=== PATIENT | female | born 1980 | race Caucasian/White ===

== ENCOUNTER → 2022-05-19 | Outpatient (CLI) | payer BC, MEDICAID, SELFPAY ==
[2022-05-19 10:18] LABS: Absolute Lymphocyte Count 3.05 X10^3/uL (0.83-4.51); Absolute Neutrophil Count 6.1 X10^3/uL (2.0-7.7); Basophil# 0.05 X10^3/uL; Basophil% 0.5 % (0-1); Eosinophil# 0.06 X10^3/uL; Eosinophils% 0.6 % (0-5); Hemoglobin 13.2 g/dL (12.0-15.0); Lymphocyte # 3.05 X10^3/ul (0.83-4.51); Lymphocyte % 30.7 % (19-41); Mean Corpuscular Hgb 32.8 pg (27.0-32.0); Mean Corpuscular Volume 99.3 fL (81-99); Mean Platelet Vol. 9.7 fl (6.2-12.0); Monocyte# 0.71 X10^3/uL; Monocyte% 7.1 % (0-10); NRBC Flagged by Analyzer 0 % (0-5); Neutrophil # 6.06 X10^3/uL (2.7-7.7); Neutrophil % 60.9 % (47-70); Platelet Count 271 K/mm3 (150-450); RBC Distribution Width CV 13.2 % (11.6-14.6); RBC Distribution Width SD 47.7 fl (35.1-43.9); Red Blood Count 4.03 M/mm3 (4.2-5.4)
[2022-05-19 13:16] LABS: ALB/GLOB Ratio 1.2 RATIO (0.9-2.4); AST(SGOT) 18 U/L (15-37); Alanine Aminotransfer ALT/SGPT 33 U/L (13-56); Alkaline Phosphatase 63 U/L (45-117); Anion Gap 9 (5-15); BUN 16 mg/dL (7-18); BUN/Creat Ratio 17.3 RATIO (10-20); Calcium,Total 8.9 mg/dL (8.5-10.1); Chloride 102 mmol/L (98-107); Creatinine, Serum 0.92 mg/dL (0.55-1.02); EST Glomerular Filtration Rate 71 mL/min (>60); Est Glom Filt Rate - Afr Amer 86 mL/min (>60); Globulin 3.4 g/dL (2.2-4.2); Glucose 100 mg/dL (74-106); Potassium 3.9 mmol/L (3.5-5.1); Protein, Total 7.4 g/dL (6.4-8.2); Sodium Level 138 mmol/L (136-145)
== END | disposition home or self-care (01) ==
PROVIDERS: PCP Nurse Practitioner Family; Referring Provider Internal Medicine Rheumatology; Visit Provider Internal Medicine Rheumatology
DX: M06.4 Inflammatory polyarthropathy (principal); M79.7 Fibromyalgia; E78.5 Hyperlipidemia, unspecified; Z79.899 Other long term (current) drug therapy
CPT/HCPCS: 36415; 80053; 85025

== ENCOUNTER 2022-05-25 05:55 | Day surgery (SDC) | payer BC, MEDICAID, SELFPAY ==
[2022-05-25] VITALS (7 sets, daily range): BP systolic 96–124; BP diastolic 53–86; PULSE 74–84; RESP 16; TEMP 36.2–36.9; O2SAT 94–99; BMI 44.1
[2022-05-25 06:37] LABS: Internal QC Validated? YES +Cl - CLEAR BKGD; Pregnancy, Urine Negative Negative
--- NOTE | 2022-05-25 06:46 | PCM.HP.BLA ---
History and Physical Date of Admission: 05/25/22 Chief complaint: Desires permanent sterilization History present illness: 41-year-old arrives for laparoscopic bilateral tubal ligation for permanent sterilization. No medical changes since last seen. All questions answered and consent signed. Obstetric history: G2, P2 history of 2 vaginal deliveries Past medical history: Asthma, arthritis, hyperlipidemia Allergies: Amoxicillin Medications: Breo, Cymbalta, prednisone, albuterol, methotrexate, Plaquenil, Protonix, atorvastatin Past surgical history: Tonsillectomy Family history: Denies history DVT or PE Social history: Vapes, denies alcohol or drug use Review of systems: Besides above pertinent positives a full review of systems was performed and found to be negative Physical exam: Vitals: Blood pressure 124/76 pulse 80 respiratory rate 16 temperature 97.1 ?F SPO2 90% on room air General: Normal-appearing no acute distress HEENT: Normocephalic/atraumatic no cervical lymphadenopathy Cardiac/respiratory: No use accessory muscles, nonlabored breathing Abdomen: Soft, nontender, obese Extremities: No peripheral edema normal peripheral pulses Psych: Normal affect normal demeanor nonpressured speech Labs: Urine test negative Assessment plan: 41-year-old desires laparoscopic bilateral tubal ligation for permanent sterilization. Patient understands risk of the procedure include but are not limited to visceral or vascular injury, prolonged hospitalization, blood loss and need for transfusion, reoperation. Patient state understanding and wished to proceed. All questions were answered and consent was signed.
[2022-05-25] MEDS: Lactated Ringers 1,000 ML 120 ML IV (06:47)
--- NOTE | 2022-05-25 07:30 | FALS_PTH ---
PATIENT: MCKAYLA KAUFFMAN [place] [facility] [place][id number] AGE/SX: 41/F ROOM: RE05/25/[address]: Dr. Chemo Rodriguez MD : 1980 BED: DIS: 05/25/2022 SPEC #: [id number] RECD: 05/25/22 12:01 STATUS: SELAM ELIDA #: [id number] PAULA: 05/25/22 07:[address]: Chemo Rodriguez DEPT: SURGICAL PATHOLOGY RECD BY: Florence Russo ENTERED: 05/25/22 13:25 SP TYPE: FALL TUBES OTHR DR: Nakia Moran, RAILROAD MECHANIC-C Tissues: Fallopian tube Procedures: Surgery Specimen Level II HEADER OPERATION: Laparoscopic salpingectomy PRE-OP DIAGNOSIS: Sterilization TISSUE SUBMITTED: Bilateral fallopian tubes MICROSCOPIC DIAGNOSIS Right and left fallopian tubes, salpingectomies: Complete cross-sections of fallopian tubes with no pathologic change. AM:neisha 05/26/2022 MICROSCOPIC DESCRIPTION Slides are reviewed. GROSS DESCRIPTION Received in fixative is one container labeled with the patient's name and designated bilateral fallopian tubes. The specimen consists of bilateral fallopian tubes including fimbrial ends each measuring 4 cm in length and 0.7 cm in diameter. The fallopian tubes are not identified as right or left. Sections reveal unremarkable cut surfaces. Senior Data Modeler sections are submitted in two cassettes with each cassette containing one fallopian tube. / SJ:rg 05/25/2022 TC:4 [facility]: [id number] x2
--- NOTE | 2022-05-25 08:10 | DCINST_ITS ---
Discharge Instructions Diet Discharge Diet: No restrictions Activity Discharge Activity: Return to Normal Activity, May Drive, May Shower and - (No tub baths for 2) May resume sexual activity in: 4-6 weeks Lifting Restrictions: No lifting over 25 pounds for 2 to 3 weeks Dressing / Incision Call your doctor if your incision/area has: Continuous Slow Oozing and Foul Smelling Discharge Call your doctor if you observe: Fever of 101 or Higher, Shortness of breath and Chest pain Follow Up Care Please Follow Up With: Chemo Rodriguez MD When: 2 weeks postoperatively Test Results: Test results from this visit will be discussed in further detail at your follow- up appointment, if applicable. Discharge Plan Admission Attending Provider: Chemo Rodriguez Primary Care Provider: Nakia Moran NP Discharge Orders/Prescriptions Prescriptions: No Action multivitamin Tablet 1 tab PO DAILY prednisone 10 mg tablet 10 mg PO PRN PRN (Reason: RHEUMATOID ARTHRITIS) Label Comments: TAKE 1 TABLET BY MOUTH DAILY NEEDED TAKE FOR 3 TO 5 DAYS WITH A FLARE atorvastatin 10 mg tablet 10 mg PO QHS Label Comments: TAKE 1 TABLET BY MOUTH EVERYDAY AT BEDTIME leucovorin calcium 15 mg tablet 15 mg PO FR Label Comments: TAKE 1 TABLET BY MOUTH ONCE A WEEK methotrexate sodium 2.5 mg tablet 20 mg PO TH Label Comments: TAKE 8 TABLETS BY MOUTH ONE TIME PER WEEK pantoprazole 40 mg tablet,delayed release (DR/EC) 40 mg PO DAILY Label Comments: 1 (ONE) TABLET BY MOUTH 30 MINUTES PRIOR TO BREAKFAST OR BEFORE FIRST MEAL OF THE DAY folic acid 1 mg tablet 2 mg PO BID Label Comments: TAKE 2 TABLETS BY MOUTH EVERY DAY hydroxychloroquine 200 mg tablet 200 mg PO BID Label Comments: TAKE 1 TABLET BY MOUTH TWICE A DAY albuterol sulfate 90 mcg/actuation HFA aerosol inhaler 2 inh INHALATION PRN PRN (Reason: COPD) Label Comments: 2 PUFFS EVERY 4 HOURS NEEDED duloxetine [Cymbalta] 60 mg capsule,delayed release(DR/EC) 60 mg PO DAILY Label Comments: TAKE 1 CAPSULE BY MOUTH EVERYDAY AT BEDTIME ferrous sulfate 28 mg iron Tablet 28 mg PO DAILY fluticasone furoate-vilanterol 200-25 mcg/dose blister with device 1 inh INHALATION DAILY Label Comments: TAKE 1 PUFF BY MOUTH EVERY DAY Referrals / Follow Up: Nakia Moran NP, MEDICAL CLAIMS ANALYST-C [Primary Care Provider] - Disposition Disposition (needs filled in before D/C Order can be placed): Home, Self Care
--- NOTE | 2022-05-25 08:11 | OP.PCM_ITS ---
Report of Operation Date of Procedure: 05/25/22 Pre-Operative Diagnosis: Desires permanent sterilization Post-Operative Diagnosis: Desires permanent sterilization Surgery/Procedure Performed:: Laparoscopic bilateral salpingectomy Description of Surgical Findings:: Surgeon: Chemo Rodriguez MD Anesthesia: General EBL: Minimal Urine output: 100 cc none IV fluids: 700 cc Complications: None Specimen: Bilateral fallopian tubes Findings: Normal uterus, tubes, and ovaries Consent: Patient desires permanent sterilization elects for laparoscopic bilateral salpingectomy. Patient understands risk of the procedure include but are not limited to visceral or vascular injury, prolonged hospitalization, blood loss and need for transfusion, reoperation. Patient states understanding and wished to proceed. All questions were answered and consent was signed Procedure: Patient was brought back to the OR where general anesthesia was found to be adequate. Patient was prepared and draped in a dorsolithotomy position with yellowfin stirrups. A weighted speculum was placed in the posterior aspect of the vagina and cervical dilators were used to dilate the cervix. Uterine manipulator was placed. Varies needle was inserted at the umbilicus water safety test was passed, failure to insufflate abdomen. Repeated varies needle attempt at the umbilicus, again failed insufflation. 5 mm supraumbilical midline incision made. Laparoscope was inserted via OptiNutricate. Abdomen was insufflated and above findings were noted. Left lower quadrant 5 mm trocar was inserted under direct visualization. Right lower quadrant 8 mm trocar was inserted under direct visualization. Using atraumatic grasper and a LigaSure device the left fallopian tube was identified to the fimbria and the mesosalpinx was cut and cauterized, fallopian tube was transected and sent to pathology. Good hemostasis was noted. In a similar fashion the left fallopian tube was identified out to the fimbria and the mesosalpinx was cut and cauterized with LigaSure device, fallopian tube was transected and sent to pathology. Good hemostasis was noted bilaterally. Abdomen was desufflated and trochars were removed under direct visualization. Good hemostasis was noted. Trocar sites were closed in a subcutaneous fashion. Good hemostasis was noted. Uterine manipulator was removed and cervix was inspected, good hemostasis was noted. All counts were correct x2. Patient tolerated procedure well and was brought to recovery in stable condition.
[2022-05-25] MEDS: Acetaminophen 500 MG Tablet 1000 MG PO (09:27)
== END 2022-05-25 10:25 | disposition home or self-care (01) ==
LOC: SDC 05:55 → AC 05:56
PROVIDERS: Anesthesiology; PCP Nurse Practitioner Family; Referring Provider Obstetrics & Gynecology; Visit Provider Obstetrics & Gynecology
PROC: (CPT 58661; principal; 2022-05-25 07:15)
DX: Z30.2 Encounter for sterilization (principal); E78.5 Hyperlipidemia, unspecified; J45.909 Unspecified asthma, uncomplicated; M19.90 Unspecified osteoarthritis, unspecified site; Z79.899 Other long term (current) drug therapy
CPT/HCPCS: 58661; 00840; 81025; 88302; J7120; J2405

== ENCOUNTER → 2022-11-24 | Outpatient (CLI) | payer BC, MEDICAID, SELFPAY ==
[2022-11-27 15:08] LABS: HPV APTIMA, High Risk Negative (Negative)
== END | disposition home or self-care (01) ==
LOC: LABSPEC 09:45
PROVIDERS: PCP Nurse Practitioner Family; Visit Provider Obstetrics & Gynecology
DX: Z12.4 Encounter for screening for malignant neoplasm of cervix (principal)
CPT/HCPCS: 87624; 88175; G0145

== ENCOUNTER → 2023-10-12 | Outpatient (CLI) | payer BC, SELFPAY ==
[2023-10-12 09:51] LABS: Absolute Lymphocyte Count 2.34 X10^3/uL (0.83-4.51); Absolute Neutrophil Count 3.5 X10^3/uL (2.0-7.7); Basophil# 0.04 X10^3/uL; Basophil% 0.6 % (0-1); Eosinophil# 0.08 X10^3/uL; Eosinophils% 1.2 % (0-5); Hematocrit 39.6 % (37-47); Hemoglobin 12.8 g/dL (12.0-15.0); Lymphocyte # 2.34 X10^3/ul (0.83-4.51); Lymphocyte % 35.8 % (19-41); Mean Corp Hgb Conc 32.3 g/dL (32-36); Mean Corpuscular Hgb 30.9 pg (27.0-32.0); Mean Corpuscular Volume 95.7 fL (81-99); Mean Platelet Vol. 10.2 fl (6.2-12.0); Monocyte# 0.57 X10^3/uL; Monocyte% 8.7 % (0-10); NRBC Flagged by Analyzer 0 % (0-5); Neutrophil % 53.5 % (47-70); Platelet Count 269 K/mm3 (150-450); RBC Distribution Width CV 13.2 % (11.6-14.6); RBC Distribution Width SD 46.5 fl (35.1-43.9); Red Blood Count 4.14 M/mm3 (4.2-5.4); White Blood Count 6.5 K/mm3 (4.4-11.0)
[2023-10-12 10:28] LABS: AST(SGOT) 23 U/L (15-37); Alanine Aminotransfer ALT/SGPT 38 U/L (13-56); Albumin, Serum 3.7 g/dL (3.2-5.0); Alkaline Phosphatase 86 U/L (45-117); Anion Gap 7 (5-15); BUN 11 mg/dL (7-18); BUN/Creat Ratio 12.3 RATIO (10-20); Calcium,Total 8.9 mg/dL (8.5-10.1); Chloride 108 mmol/L (98-107); EST Glomerular Filtration Rate 73 mL/min (>60); Est Glom Filt Rate - Afr Amer 88 mL/min (>60); Globulin 3.8 g/dL (2.2-4.2); Glucose 100 mg/dL (74-106); Protein, Total 7.5 g/dL (6.4-8.2); Sodium Level 138 mmol/L (136-145)
== END | disposition home or self-care (01) ==
LOC: MTLAB 07:21
PROVIDERS: PCP Nurse Practitioner Family; Referring Provider Internal Medicine Rheumatology; Visit Provider Internal Medicine Rheumatology
DX: M06.4 Inflammatory polyarthropathy (principal); M79.7 Fibromyalgia; Z79.899 Other long term (current) drug therapy
CPT/HCPCS: 36415; 80053; 85025

== ENCOUNTER → 2024-03-21 | Outpatient (CLI) | payer BC, SELFPAY ==
[2024-03-21 12:27] LABS: Absolute Lymphocyte Count 2.23 X10^3/uL (0.83-4.51); Absolute Neutrophil Count 5.2 X10^3/uL (2.0-7.7); Basophil# 0.06 X10^3/uL; Basophil% 0.7 % (0-1); Eosinophil# 0.14 X10^3/uL; Eosinophils% 1.7 % (0-5); Hematocrit 41.7 % (37-47); Hemoglobin 13.5 g/dL (12.0-15.0); Lymphocyte # 2.23 X10^3/ul (0.83-4.51); Lymphocyte % 27.1 % (19-41); Mean Corp Hgb Conc 32.4 g/dL (32-36); Mean Corpuscular Hgb 31.9 pg (27.0-32.0); Mean Corpuscular Volume 98.6 fL (81-99); Mean Platelet Vol. 10.2 fl (6.2-12.0); Monocyte# 0.61 X10^3/uL; Monocyte% 7.4 % (0-10); NRBC Flagged by Analyzer 0 % (0-5); Neutrophil # 5.17 X10^3/uL (2.7-7.7); Neutrophil % 62.9 % (47-70); Platelet Count 248 K/mm3 (150-450); RBC Distribution Width CV 12.7 % (11.6-14.6); RBC Distribution Width SD 45.6 fl (35.1-43.9); Red Blood Count 4.23 M/mm3 (4.2-5.4); White Blood Count 8.2 K/mm3 (4.4-11.0)
[2024-03-21 13:13] LABS: ALB/GLOB Ratio 1.1 RATIO (0.9-2.4); AST(SGOT) 19 U/L (15-37); Alanine Aminotransfer ALT/SGPT 38 U/L (13-56); Alkaline Phosphatase 78 U/L (45-117); Anion Gap 6 (5-15); BUN 13 mg/dL (7-18); BUN/Creat Ratio 14.4 RATIO (10-20); Calcium,Total 9.1 mg/dL (8.5-10.1); Chloride 104 mmol/L (98-107); EST Glomerular Filtration Rate 72 mL/min (>60); Est Glom Filt Rate - Afr Amer 87 mL/min (>60); Globulin 3.7 g/dL (2.2-4.2); Glucose 93 mg/dL (74-106); Potassium 4.1 mmol/L (3.5-5.1); Protein, Total 7.7 g/dL (6.4-8.2); Sodium Level 136 mmol/L (136-145)
== END | disposition home or self-care (01) ==
LOC: MTLAB 09:02
PROVIDERS: PCP Nurse Practitioner Family; Referring Provider Internal Medicine Rheumatology; Visit Provider Internal Medicine Rheumatology
DX: M06.4 Inflammatory polyarthropathy (principal); M79.7 Fibromyalgia; Z79.899 Other long term (current) drug therapy
CPT/HCPCS: 36415; 80053; 85025

== ENCOUNTER → 2024-06-21 | Outpatient (CLI) | payer BC, SELFPAY ==
[2024-06-21 10:23] LABS: Absolute Lymphocyte Count 2.27 X10^3/uL (0.83-4.51); Absolute Neutrophil Count 3.8 X10^3/uL (2.0-7.7); Basophil# 0.04 X10^3/uL; Basophil% 0.6 % (0-1); Eosinophil# 0.11 X10^3/uL; Eosinophils% 1.6 % (0-5); Hematocrit 38.6 % (37-47); Hemoglobin 12.7 g/dL (12.0-15.0); Lymphocyte # 2.27 X10^3/ul (0.83-4.51); Mean Corp Hgb Conc 32.9 g/dL (32-36); Mean Corpuscular Hgb 32.2 pg (27.0-32.0); Mean Corpuscular Volume 97.7 fL (81-99); Mean Platelet Vol. 10.4 fl (6.2-12.0); Monocyte# 0.67 X10^3/uL; Monocyte% 9.8 % (0-10); NRBC Flagged by Analyzer 0 % (0-5); Neutrophil # 3.77 X10^3/uL (2.7-7.7); Neutrophil % 54.9 % (47-70); Platelet Count 248 K/mm3 (150-450); RBC Distribution Width CV 13.6 % (11.6-14.6); RBC Distribution Width SD 48.3 fl (35.1-43.9); Red Blood Count 3.95 M/mm3 (4.2-5.4); White Blood Count 6.9 K/mm3 (4.4-11.0)
[2024-06-21 10:48] LABS: ALB/GLOB Ratio 0.9 RATIO (0.9-2.4); AST(SGOT) 18 U/L (15-37); Alanine Aminotransfer ALT/SGPT 34 U/L (13-56); Albumin, Serum 3.6 g/dL (3.2-5.0); Alkaline Phosphatase 83 U/L (45-117); Anion Gap 8 (5-15); BUN 10 mg/dL (7-18); BUN/Creat Ratio 11.6 RATIO (10-20); Calcium,Total 8.7 mg/dL (8.5-10.1); Chloride 104 mmol/L (98-107); Creatinine, Serum 0.86 mg/dL (0.55-1.02); EST Glomerular Filtration Rate 76 mL/min (>60); Est Glom Filt Rate - Afr Amer 92 mL/min (>60); Globulin 3.9 g/dL (2.2-4.2); Glucose 98 mg/dL (74-106); Potassium 4.1 mmol/L (3.5-5.1); Protein, Total 7.5 g/dL (6.4-8.2); Sodium Level 138 mmol/L (136-145)
== END | disposition home or self-care (01) ==
LOC: MTLAB 07:41
PROVIDERS: PCP Nurse Practitioner Family; Referring Provider Internal Medicine Rheumatology; Visit Provider Internal Medicine Rheumatology
DX: M06.4 Inflammatory polyarthropathy (principal); M79.7 Fibromyalgia; Z79.899 Other long term (current) drug therapy
CPT/HCPCS: 36415; 80053; 85025

== ENCOUNTER → 2024-07-22 | Outpatient (CLI) | payer BC, SELFPAY ==
[2024-07-22 08:27] LABS: Absolute Neutrophil Count 3.8 X10^3/uL (2.0-7.7); Basophil# 0.06 X10^3/uL; Basophil% 0.9 % (0-1); Eosinophil# 0.11 X10^3/uL; Eosinophils% 1.7 % (0-5); Hematocrit 38.7 % (37-47); Hemoglobin 12.7 g/dL (12.0-15.0); Lymphocyte % 28.3 % (19-41); Mean Corp Hgb Conc 32.8 g/dL (32-36); Mean Corpuscular Hgb 32.2 pg (27.0-32.0); Mean Corpuscular Volume 98.2 fL (81-99); Mean Platelet Vol. 9.6 fl (6.2-12.0); Monocyte# 0.58 X10^3/uL; Monocyte% 9.1 % (0-10); NRBC Flagged by Analyzer 0 % (0-5); Neutrophil # 3.79 X10^3/uL (2.7-7.7); Neutrophil % 59.7 % (47-70); Platelet Count 240 K/mm3 (150-450); RBC Distribution Width CV 13.7 % (11.6-14.6); RBC Distribution Width SD 49.8 fl (35.1-43.9); Red Blood Count 3.94 M/mm3 (4.2-5.4); White Blood Count 6.4 K/mm3 (4.4-11.0)
[2024-07-22 09:15] LABS: ALB/GLOB Ratio 1.4 RATIO (0.9-2.4); AST(SGOT) 32 U/L (<=31); Alanine Aminotransfer ALT/SGPT 35 U/L (<=34); Albumin, Serum 4.1 g/dL (3.5-5.0); Alkaline Phosphatase 70 U/L (35-104); Anion Gap 10 (5-15); BUN 9 mg/dL (4-19); BUN/Creat Ratio 10.6 RATIO (10-20); Calcium,Total 8.7 mg/dL (7.6-11.0); Chloride 103 mmol/L (98-108); Cholesterol 163 mg/dL (<=200); Creatinine, Serum 0.83 mg/dL (0.70-1.20); EST Glomerular Filtration Rate 89 (>60); Globulin 2.9 g/dL (2.2-4.2); Glucose 98 mg/dL (70-99); High Density Lipoprotein 71 mg/dL; Low Density Lipoprotein Calc. 76 mg/dL; Potassium 4.3 mmol/L (3.3-5.1); Protein, Total 6.9 g/dL (5.9-8.4); Sodium Level 137 mmol/L (133-145); Thyroid Stim Hormone (TSH) 0.289 uIU/mL (0.300-4.200); Total Bilirubin 0.21 mg/dL (0.00-1.30); Triglycerides 84 mg/dL; Very Low Density Lipoprotein 17 mg/dL (5-40); cholesterol:hdl ratio screen 2.31
== END | disposition home or self-care (01) ==
LOC: LAB 08:08
PROVIDERS: PCP Family Medicine; Referring Provider Family Medicine; Visit Provider Family Medicine
DX: I10 Essential (primary) hypertension (principal); E78.5 Hyperlipidemia, unspecified
CPT/HCPCS: 36415; 80053; 80061; 82306; 84443; 85025

== ENCOUNTER → 2024-09-13 | Outpatient (CLI) | payer BC, SELFPAY ==
[2024-09-13 10:25] LABS: Absolute Neutrophil Count 3.9 X10^3/uL (2.0-7.7); Basophil# 0.04 X10^3/uL; Basophil% 0.6 % (0-1); Eosinophil# 0.08 X10^3/uL; Eosinophils% 1.2 % (0-5); Hematocrit 41.5 % (37-47); Hemoglobin 13.8 g/dL (12.0-15.0); Lymphocyte % 31.9 % (19-41); Mean Corp Hgb Conc 33.3 g/dL (32-36); Mean Corpuscular Hgb 31.4 pg (27.0-32.0); Mean Corpuscular Volume 94.5 fL (81-99); Mean Platelet Vol. 10.6 fl (6.2-12.0); Monocyte# 0.69 X10^3/uL; NRBC Flagged by Analyzer 0 % (0-5); Neutrophil # 3.88 X10^3/uL (2.7-7.7); Neutrophil % 56.2 % (47-70); Platelet Count 243 K/mm3 (150-450); RBC Distribution Width CV 13.1 % (11.6-14.6); RBC Distribution Width SD 45.3 fl (35.1-43.9); Red Blood Count 4.39 M/mm3 (4.2-5.4); White Blood Count 6.9 K/mm3 (4.4-11.0)
[2024-09-13 11:02] LABS: ALB/GLOB Ratio 1.4 RATIO (0.9-2.4); AST(SGOT) 23 U/L (<=31); Alanine Aminotransfer ALT/SGPT 38 U/L (<=34); Albumin, Serum 4.3 g/dL (3.5-5.0); Alkaline Phosphatase 58 U/L (35-104); Anion Gap 12 (5-15); BUN 6 mg/dL (4-19); BUN/Creat Ratio 7.7 RATIO (10-20); Calcium,Total 9.6 mg/dL (7.6-11.0); Chloride 102 mmol/L (98-108); Creatinine, Serum 0.82 mg/dL (0.70-1.20); EST Glomerular Filtration Rate 90 (>60); Glucose 103 mg/dL (70-99); Protein, Total 7.3 g/dL (5.9-8.4); Sodium Level 136 mmol/L (133-145); Total Bilirubin 0.31 mg/dL (0.00-1.30)
== END | disposition home or self-care (01) ==
LOC: MTLAB 07:06
PROVIDERS: PCP Family Medicine; Referring Provider Internal Medicine Rheumatology; Visit Provider Internal Medicine Rheumatology
DX: M06.4 Inflammatory polyarthropathy (principal); M25.562 Pain in left knee; M79.7 Fibromyalgia; K58.2 Mixed irritable bowel syndrome
CPT/HCPCS: 36415; 80053; 85025

== ENCOUNTER → 2024-09-26 | Outpatient (CLI) | payer BC, SELFPAY ==
--- NOTE | 2024-09-26 07:22 | US_ITS ---
PROCEDURE: ABDOMEN LIMITED 09/26/2024 REASON FOR EXAM: INFLAMMATORY POLYARTHROPATHY COMPARISON: None FINDINGS: Liver: Diffusely echogenic suggesting fatty infiltration. Liver measures 16.1 cm. There is 1.9 cm 3.2 cm x 1.3 cm echogenic focus in the right lobe of the liver suggestive of a hemangioma. Gallbladder: No stones, sludge, wall thickening or tenderness. Common bile duct: Normal measuring 3.2 mm . Pancreas: Obscured by bowel gas. Other: Right kidney is unremarkable. US/Abdomen Limited IMPRESSION: Fatty infiltration of the liver. Findings suggestive of a 1.9 cm 3.2 cm 1.3 cm hemangioma in the right lobe of t he liver. Reading Location: [place] [id number]
== END | disposition home or self-care (01) ==
PROVIDERS: PCP Family Medicine; Referring Provider Internal Medicine Rheumatology; Visit Provider Internal Medicine Rheumatology
DX: M06.4 Inflammatory polyarthropathy (principal); Z79.899 Other long term (current) drug therapy
CPT/HCPCS: 76705

== ENCOUNTER 2024-10-14 17:42 | Emergency (ER) | payer BC, SELFPAY ==
[2024-10-14 17:43] VITALS: BP 130/59; PULSE 115; RESP 18; TEMP 36.6; O2SAT 99; BMI 40.7
--- NOTE | 2024-10-14 18:03 | EDS_ITS ---
HPI History of Present Illness Chief Complaint: [facility] Medical History Wears contact lenses Wears glasses History of steroid therapy Rheumatoid arthritis Arthritis Anemia High cholesterol Migraine headache History of diverticulitis History of hiatal hernia Gastric reflux Former smoker Asthma COPD (chronic obstructive pulmonary disease) Hoarseness Chronic cough Fibromyalgia Leg cramps History of pain when walking History of edema Home Medications ?Medication ?Instructions ?Recorded ?Last Taken ?Type albuterol sulfate 90 mcg/actuation 2 inh inhalation DC N PRN COPD 05/19/22 05/25/22 History aerosol inhaler atorvastatin 10 mg tablet 10 mg PO QHS 05/19/22 Unknow n History duloxetine 60 mg capsule,delayed 60 mg PO DAILY Unknown History release (Cymbalta) ferrous sulfate 28 mg iron tablet 28 mg PO DAILY 05/19 Unknown History fluticasone furoate 200 1 inh inhalation DAILY 05/1905/25/22 History mcg-vilanterol 25 mcg/dose inhalation powder folic acid 1 mg tablet 2 mg PO BID 05/19/22 Unknown History hydroxychloroquine 200 mg tablet 200 mg PO BID 3 Unknown History leucovorin calcium 15 mg tablet 15 mg PO FR 05/19/22 U nknown History methotrexate sodium 2.5 mg tablet 20 mg PO TH 05/19/22 Unknown History multivitamin 1 tab PO DAILY 05/19/22 Unkn own History pantoprazole 40 mg tablet,delayed 40 mg PO DAILY 05/1905/25/22 History release prednisone 10 mg tablet 10 mg PO PRN PRN RHEUMATOID 05/19/22 Unknown History ARTHRITIS Allergy/AdvReac Type Severity Reaction Status Date / Time amoxicillin AdvReac Other Verified 10/14/24 17:42 Surgical History Hx of lymph node biopsy Hx of tonsillectomy Social History (Updated 10/14/24 @ 17:51 by Ani Terry) household members: spouse housing: house Smoking Status: Former smoker EXAM Physical Exam Const Vital Signs: 10/14/24 17:43 10/14/24 19:42 10/14/24 21:00 Temperature 97.9 F Temperature Source Temporal Pulse Rate 115 H 77 81 Respiratory Rate 18 16 16 Blood Pressure 130/59 H 135/68 H 107/77 Blood Pressure Mean 82 90 87 Pulse Ox 99 99 100 Oxygen Delivery Method Room Air Room Air Room Air [facility] Narrative Medical decision making narrative: HISTORY OF PRESENT ILLNESS: Chief complaint: Diarrhea, hematochezia 44-year-old female history of rheumatoid arthritis, COPD, fibromyalgia presents with abdominal pain, bloody diarrhea. The patient denies being on blood thinners. No significant approximately 4 mm. No history of diverticulitis. No she took Bentyl that relief. She further states she had left lower quadrant pain. Does not quite feel like a prior diverticulitis. She notes she did take 1 dose of ciprofloxacin and Flagyl this morning. Denies vomiting but notes nausea but denies fever. Denies sick contacts, travel, recent surgery or or other antibiotics besides the ones of interest endorsed. Denies chest pain or shortness of breath. Denies urinary complaints. Denies history of kidney stones. Denies falls or trauma. REVIEW OF SYSTEMS: Pertinent positives: Diarrhea, abdominal pain, hematochezia Pertinent negatives: Vomiting, fever, chest pain PHYSICAL EXAM: Nursing triage notes reviewed, Vital signs reviewed Constitutional: please see [facility] HENT: MMM Eyes: Pupils equal round and reactive to light, Extraocular muscles intact Neck: No stridor, no JVD, full neck ROM Lungs: Clear to auscultation, No wheezing or rales. No increased work of breathing, no conversational dyspnea, no accessory muscle use, no nasal flaring. No respiratory distress noted Heart: Regular rate and rhythm, No murmurs, No rubs and No gallops, 2+ distal pulses (radial, femoral, posterior tibial) in all extremities Abdomen: Soft, there is no tenderness, rigidity, rebound or guarding, no obvious peritoneal signs, no palpable pulsatile abdominal masses, no auscultated abdominal bruit : No CVAT Extremities: No edema Neuro: No new focal neurological deficits, cranial nerves II through XII intact, 5/5 strength in all present extremities. Intact sensation to light touch in all present extremities, 2+ reflexes bilateral patella tendons. Skin: No rash or lesions noted MEDICAL DECISION MAKING: Chief Complaint: please see [facility] External records reviewed: Reviewed prior imaging studies: Reviewed abdominal ultrasound from September 2024 which showed fat infiltration of liver, hemangioma Factors affecting care: As per HPI Social determinants of health: Denies drugs or alcohol History obtained from others: none Consults: none [facility] Narrative: The patient was initially tachycardic otherwise hemodynamically stable, afebrile and nontoxic-appearing. Exam with no obvious peritoneal signs. I considered the following differential diagnosis: AAA, small bowel obstruction, abdominal perforation, perforated diverticula, diverticular abscess, appendicitis, pancreatitis, hepatobiliary pathology (acute cholecystitis), mesenteric ischemia, pathology (ie nephrolithiasis, pyelonephritis), invasive diarrheal species (including E. coli and Shigella). I obtained a broad lab and imaging workup to further elucidate etiology the patient complaints. Initially treated patient with 1 L normal saline, 4 mg IV morphine, 4 mg IV Zofran, 15 mg IV Toradol ALL IMAGES (IF OBTAINED) HAVE BEEN PERSONALLY REVIEWED AND INTERPRETED BY MYSELF. CBC leukocytosis suggestive of systemic inflammation. She is on steroids so this may be result of demarginalization rather than acute inflammation CMP without evidence of acute kidney injury, significant electrolyte abnormality, anion gap to suggest end organ hypo-perfusion, no evidence of metabolic acidosis with a normal bicarbonate, no evidence of hepatobiliary obstructive pathology. Lipase is wnl indicating no pancreatic inflammation. Urinalysis shows no evidence of urinary inflammation suggestive of UTI Urine test is negative CT scan of the abdomen/pelvis shows possible enteritis but no obvious surgical emergencies. No diverticulitis or diverticular abscess. Upon reassessment patient heart improved to 81, she remained afebrile. The synthesis of the patient's history, physical exam, labs images suggest likely enteritis. Will await stool cultures before prescribing additional medications including antibiotics. Encourage patient to follow stool cultures on her electron medical record and to refer to her primary care physician during follow-up for results. She was prescribed Zofran for symptomatic relief of nausea at home. The patient and/or family, caregivers express understanding. The patient and/or family, caregivers agrees with the plan. Shared decision making: I will have a discussion with the patient and or visitors regarding risk/benefits of further testing or admission. They will be made aware of of the risk/benefits inherent in this decision they will be given the opportunity to voice understanding. Total critical care time today provided was at least 0 [] minutes. This excludes separately billable procedures. Critical care time (if documented) is secondary to the patient having high probability of clinically significant/life threatening deterioration in the patient's condition which required my urgent intervention. Impression: 1. Abdominal pain 2. Diarrhea 3. Hematochezia Dispo: Discharge home This note was generated with [employer] dictation software. It may contain incorrect words, spelling, and punctuation that were not noted in review of the chart prior to signing. Lab Data Labs: Laboratory Results - last 24 hr 10/14/24 10/14/24 18:11 18:18 WBC 12.8 H RBC 4.51 Hgb 14.2 Hct 42.6 MCV 94.5 MCH 31.5 MCHC 33.3 RDW Std Deviation 45.7 H RDW Coeff of [place] 13.2 Plt Count 246 MPV 10.1 Immature Gran % (Auto) 0.500 Neut % (Auto) 84.9 H Lymph % (Auto) 7.8 L [place] % (Auto) 6.3 Eos % (Auto) 0.2 Baso % (Auto) 0.3 Absolute Neuts (auto) 10.9 H Absolute Lymphs (auto) 0.99 Nucleated RBC % 0 Sodium 139 Potassium 3.6 Chloride 104 Carbon Dioxide 24.5 Anion Gap 11 BUN 5 Creatinine 0.82 Estim Creat Clear Calc 93.68 Est GFR (MDRD) Non-Af 91 BUN/Creatinine Ratio 5.5 L Glucose 97 Calcium 9.6 Total Bilirubin 0.47 AST 24 ALT 30 Alkaline Phosphatase 64 Total Protein 7.5 Albumin 4.6 Globulin 3.0 Albumin/Globulin Ratio 1.5 Lipase 27 Urine Color [place]enny Urine Clarity Cloudy Urine pH 5.0 Ur Specific [place] 1.030 Urine Protein 30 H Urine Glucose (UA) Normal Urine Ketones 5 H Urine Occult Blood Negative Urine Nitrite Negative Urine Bilirubin 1 H Urine Urobilinogen Normal Ur Leukocyte Esterase 25 H Urine RBC 0 SEEN Urine WBC 0-5 SEEN Ur Squamous Epith Cells 0-5 SEEN Ur Transition Epith Cell 0-5 SEEN Urine Bacteria 4+ Fine Granular Casts 0-5 SEEN Urine Mucus 0 SEEN Urine Test Negative Radiography Diagnostic Testing: Clinical Impression(s) from Imaging Studies Abdomen/Pelvis CT 10/14/24 18:15 IMPRESSION: 1. Long segment wall thickening, hyperenhancement and fat stranding of the proximal descending colon, which is indeterminate in etiology, and may represent enteritis or inflammatory bowel disease. Colonoscopy is recommended for further evaluation. 2. Minimal colonic diverticulosis. No intra-abdominal abscess, ascites or free air. Reading Location: [facility] Discharge Plan Triage Chief Complaint: GI Bleed ED Provider: Sam Combs Dx/Rx/DC Orders Prescriptions: No Action multivitamin Tablet 1 tab PO DAILY prednisone 10 mg tablet 10 mg PO PRN PRN (Reason: RHEUMATOID ARTHRITIS) Patient Comments: TAKE 1 TABLET BY MOUTH DAILY NEEDED TAKE FOR 3 TO 5 DAYS WITH A FLARE atorvastatin 10 mg tablet 10 mg PO QHS Patient Comments: TAKE 1 TABLET BY MOUTH EVERYDAY AT BEDTIME leucovorin calcium 15 mg tablet 15 mg PO FR Patient Comments: TAKE 1 TABLET BY MOUTH ONCE A WEEK methotrexate sodium 2.5 mg tablet 20 mg PO TH Patient Comments: TAKE 8 TABLETS BY MOUTH ONE TIME PER WEEK pantoprazole 40 mg tablet,delayed release (DR/EC) 40 mg PO DAILY Patient Comments: 1 (ONE) TABLET BY MOUTH 30 MINUTES PRIOR TO BREAKFAST OR BEFORE FIRST MEAL OF THE DAY folic acid 1 mg tablet 2 mg PO BID Patient Comments: TAKE 2 TABLETS BY MOUTH EVERY DAY hydroxychloroquine 200 mg tablet 200 mg PO BID Patient Comments: TAKE 1 TABLET BY MOUTH TWICE A DAY albuterol sulfate 90 mcg/actuation HFA aerosol inhaler 2 inh INHALATION PRN PRN (Reason: COPD) Patient Comments: 2 PUFFS EVERY 4 HOURS NEEDED duloxetine [Cymbalta] 60 mg capsule,delayed release(DR/EC) 60 mg PO DAILY Patient Comments: TAKE 1 CAPSULE BY MOUTH EVERYDAY AT BEDTIME ferrous sulfate 28 mg iron Tablet 28 mg PO DAILY fluticasone furoate-vilanterol 200-25 mcg/dose blister with device 1 inh INHALATION DAILY Patient Comments: TAKE 1 PUFF BY MOUTH EVERY DAY Primary Care Provider: Coral Martinez Referrals: Coral Martinez MD [Primary Care Provider] - Print Language: Wolof
--- OUTSIDE RECORDS SUMMARY | 2024-10-14 18:09 | XMS RPT_ITS | CCD ---
Author Organization [facility] Team Providers Care Grounds/Maintenance Specialist Name Role Phone BRET LATIF DO, V Primary Care Physician DEANDRA VELASCO., DR. SIFUENTES Attending Unavaila ble BRET LATIF DO, V Primary Care Unavailable MARIA LIRIANO MD Primary Care Unavailable NAKIA ROLAND CNP Consulting Unavailable MARIA LIRIANO MD Admitting Unavailable MARIA LIRIANO MD Attending Unavailable PROVIDER, UNKNOWN Consulting Unavailable PROVIDER, UNKNOWN Consulting Unavailable MARIA LIRIANO MD Admitting Unavailable NAKIA ROLAND CNP Consulting Unavailable MARIA LIRIANO MD Attending Unavailable MARIA LIRIANO MD Primary Care Unavailable PROVIDER, UNKNOWN Consulting Unavailable PROVIDER, UNKNOWN Consulting Unavailable NAKIA ROLAND CNP Attending Unavailable NAKIA ROLAND CNP Admitting Unavailable NAKIA ROLAND CNP Consulting Unavailable NAKIA ROLAND CNP Primary Care Unavailable PROVIDER, UNKNOWN Consulting Unavailable PROVIDER, UNKNOWN Consulting Unavailable NAKIA ROLAND CNP Admitting Unavailable NAKIA ROLAND CNP Attending Unavailable NAKIA ROLAND CNP Consulting Unavailable NAKIA ROLAND CNP Primary Care Unavailable PROVIDER, UNKNOWN Consulting Unavailable PROVIDER, UNKNOWN Consulting Unavailable NAKIA ROLAND CNP Admitting Unavailable ASUNCIONNAKIA NUNN CNP Attending Unavailable ASUNCIONNAKIA NUNN CNP Consulting Unavailable NAKIA ROLAND CNP Primary Care Unavailable PROVIDER, UNKNOWN Consulting Unavailable PROVIDER, UNKNOWN Consulting Unavailable Asuncion [employer] CRIB ATTENDANT-CNakia Primary Care Provider [phone] Deandra VELASCO, Dr. Sifuentes Attending Provider Dr. Maria Liriano MD Referring Provider Coral Martinez MD Primary Care Provider Coral Martinez MD Attending Provider Coral Martinez MD Referring Provider Moe Martinezon Primary Care Unavailable JuanMoe wetzelon Attending Unavailable Juan, Chalon Referring Unavailable Vellanki, Maria Referring Unavailable Vellanki, Maria Attending Unavailable Juan, Chalon Primary Care Unavailable Vellanki, Maria Referring Unavailable Vellanki, Maria Attending Unavailable Juan, Chalon Primary Care Unavailable Vellanki, Maria Attending Unavailable Vellanki, Maria Referring Unavailable Nakia Roland Primary Care Unavailable Vellanki, Maria Referring Unavailable Nakia Roland Primary Care Unavailable Vellanki, Maria Attending Unavailable Vellanki, Maria Referring Unavailable Vellanki, Maria Attending Unavailable Nakia Roland Primary Care Unavailable Allergies Allergy Classification Reported Allergen(s) Allergy Type Date of Onset Reaction(s) Facility (5 sources) Amoxicillin; Translations: [amoxicillin] Drug Allergy 05-19-2022 [facility], [facility] Comment on above: YEAST INFECTIONS (1 source) Amoxicillin Drug Allergy [facility] Repository (1 source) Amoxicillin Drug Allergy 05-19-2022 [facility] Repository Medications Current Medications Medication Drug Class(es) Dates Sig (Normalized) Sig (Original) acetaminophen 325 mg oral tablet (2 sources) Start: 07-21-2011 Tylenol 325 mg oral tablet Dose : 650 mg = 2 tab(s), Oral, q4h, PRN for pain, # 120 tab(s), 0 Refill(s) Start Date: 07/21/11 Status: Ordered [id number] 200 actuat albuterol 0.09 mg/actuat metered dose inhaler (3 sources) beta2-Adrenergic Agonist Start: 05-19-2022 Albuterol Sulfate 90 mcg/actuation HFA aerosol inhaler Active 2 NMA INHALATION NEEDED as needed for COPD May 19, 2022 1:00am Start: 05-19-2022 Albuterol Sulf ate Active 2 INH INHALATION NEEDED May 19, 2022 12:00am atorvastatin 10 mg oral tablet (3 sources) HMG-CoA Reductase Inhibitor Start: 05-19-2022 take 1 tablet by mouth at bedtime Atorvastatin 10 mg tablet Active 10 mg PO AT BEDTIME May 19, 2022 1:00am citalopram 20 mg oral tablet (2 sources) Serotonin Reuptake Inhibitor Start: 07-17-2011 citalopram 20 mg oral tablet Dose : 20 mg = 1 tab(s), PO, Daily, # 30 tab(s), 0 Refill(s) Start Date: 07/17/11 Status: Ordered DULoxetine 60 mg delayed release oral capsule (3 sources) Serotonin and Norepinephrine Reuptake Inhibitor Start: 05-19-2022 take 1 capsule by mouth once daily Duloxetine (Cymbalta) 60 mg capsule,delayed release(DR/EC) Active 60 mg PO DAILY May 19, 2022 1:00am ferrous sulfate 28 mg oral tablet (1 source) Start: 05-19-2022 take 28 mg by mouth once daily Ferrous Sulfate Active 28 MG PO DAILY May 19, 2022 12:00am Ferrous Sulfate 28 mg iron Tablet (2 sources) Start: 05-19-2022 take 1 tablet by mouth once daily Ferrous Sulfate 28 mg iron Tablet Active 28 mg PO DAILY May 19, 2022 1:00am 30 actuat fluticasone furoate 0.2 mg/actuat / vilanterol 0.025 mg/actuat dry powder inhaler (3 sources) Corticosteroid, beta2-Adrenergic Agonist Start: 05-19-2022 Fluticasone Furoate-Vilanterol 200-25 mcg/dose blister with device Active 1 NMA INHALATION DAILY May 19, 2022 1:00am Start: 05-19-2022 Fluticasone Fu roate-Vilanterol Active 1 INH INHALATION DAILY May 19, 2022 12:00am folic acid 1 mg oral tablet (3 sources) Start: 05-19-2022 take 2 tablets by mouth twice daily Folic Acid 1 mg tablet Active 2 mg PO TWICE A DAY May 19, 2022 1:00am Start: 05-19-2022 take 2 mg by mouth twice daily Folic Acid Active 2 MG PO TWICE A DAY May 19, 2022 12:00am hydroxychloroquine sulfate 200 mg oral tablet (3 sources) Antimalarial, Antirheumatic Agent Start: 05-19-2022 take 1 tablet by mouth twice daily Hydroxychloroquine 200 mg tablet Active 200 mg PO TWICE A DAY May 19, 2022 1:00am leucovorin 15 mg oral tablet (3 sources) Folate Analog Start: 05-19-2022 Leucovorin Calcium 15 mg tablet Active 15 mg PO FR May 19, 2022 1:00am methotrexate 2.5 mg oral tablet (3 sources) Folate Analog Metabolic Inhibitor Start: 05-19-2022 Methotrexate Sodium 2.5 mg tablet Active 20 mg PO TH May 19, 2022 1:00am Start: 05-19-2022 Methotrexate S odium Active 20 MG PO May 19, 2022 12:00am Multivitamin preparation (1 source) Start: 05-19-2022 take 1 tablet by mouth once daily Multivitamin Active 1 TABLET PO DAILY May 19, 2022 12:00am Multivitamin Tablet (2 sources) Start: 05-19-2022 Multivitamin T ablet Active 1 {tbl} PO DAILY May 19, 2022 1:00am pantoprazole 40 mg delayed release oral tablet (3 sources) Proton Pump Inhibitor Start: 05-19-2022 take 1 tablet by mouth once daily Pantoprazole 40 mg tablet,delayed release (DR/EC) Active 40 mg PO DAILY May 19, 2022 1:00am predniSONE 10 mg oral tablet (3 sources) Start: 05-19-2022 Prednisone 10 mg tablet Active 10 mg PO NEEDED as needed for RHEUMATOID ARTHRITIS May 19, 2022 1:00am Completed/Discontinued Medications Medication Drug Class(es) Dates Sig (Normalized) Sig (Original) acetaminophen 300 mg / codeine phosphate 30 mg oral tablet (2 sources) Opioid Agonist Start: 07-21-2011 Tylenol with Codeine #3 oral tablet 1-2 tab, Oral, q4h, PRN as needed for pain, 0 Refill(s), q4-6h Start Date: 07/21/11 Status: Ordered Problems Active Problems Problem Classification Problem Date Documented Da te Episodic/Chronic Abdominal hernia (1 source) Diaphragmatic hernia; Translations: [Diaphragmatic hernia without obstruction or gangrene] Episodic Chronic obstructive pulmonary disease and bronchiectasis (1 source) Chronic obstructive lung disease; Translations: [Chronic obstructive pulmonary disease, unspecified] Chronic Disorders of lipid metabolism (1 source) Hyperlipidemia, unspecified; Translations: [Hyperlipidemia, unspecified] Onset: 4 Chronic Esophageal disorders (1 source) Gastroesophageal reflux disease without esophagitis; Translations: [Gastro-esophageal reflux disease without esophagitis] Chronic Essential hypertension (1 source) Essential (primary) hypertension; Translations: [Essential (primary) hypertension] Onset: 5 Chronic Other aftercare (1 source) Long-term current use of drug therapy; Translations: [Other intermediate (current) drug therapy] Episodic Other connective tissue disease (1 source) Fibromyalgia; Translations: [Fibromyalgia] Episodic Other gastrointestinal disorders (1 source) 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; 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] Chronic Rheumatoid arthritis and related disease (2 sources) Inflammatory polyarthropathy; Translations: [Inflammatory polyarthropathy] Onset: 5 Chronic Thyroid disorders (1 source) Hypothyroidism, unspecified; Translations: [Hypothyroidism, unspecified] Onset: 4 Chronic Past or Other Problems Problem Classification Problem Date Documented Da te Episodic/Chronic Malaise and fatigue (1 source) Other fatigue; Translations: [Other fatigue] Onset: 12-01-2023 Episodic Other screening for suspected conditions (not mental disorders or infectious disease) (1 source) Encounter for screening for diabetes mellitus; Translations: [Encounter for screening for diabetes mellitus] Onset: 12-01-2023 Episodic Results Test Name Value Interpretation Reference Range Facility Abdomen Limitedon 09-26-2024 Abdomen Limited [facility] Services [address] [place] [id number] Abdomen Limited MR#: [id number] Acct: [id number] Name: MCKAYLA KAUFFMAN Rep #: [id number] : 1980 F [id number] From: Skip branch MD PCP: Dr. Coral Martinez MD Status: [facility] Study: Abdomen Limited Date of Exam: 09/26/24 Exam# [id number] Ordering Dr: Maria Liriano MD PROCEDURE: ABDOMEN LIMITED 09/26/2024 REASON FOR EXAM: INFLAMMATORY POLYARTHROPATHY COMPARISON: None FINDINGS: Liver: Diffusely echogenic suggesting fatty infiltration. Liver measures 16.1 cm. There is 1.9 cm 3.2 cm x 1.3 cm echogenic focus in the right lobe of the liver suggestive of a hemangioma. Gallbladder: No stones, sludge, wall thickening or tenderness. Common bile duct: Normal measuring 3.2 mm . Pancreas: Obscured by bowel gas. Other: Right kidney is unremarkable. US/Abdomen Limited IMPRESSION: Fatty infiltration of the liver. Findings suggestive of a 1.9 cm 3.2 cm 1.3 cm hemangioma in the right lobe of the liver. Reading Location: [place] [address] CC: Dr. Coral Martinez MD; Dr. Maria Liriano MD Plating Technician: Signed Normal [facility] Absolute lymphocyte countOrd ered By: Maria Liriano on 09-13-2024 Lymphocytes Auto (Unsp spec) [#/Vol] 2.20 10*3/uL 0.83-4.51 [facility] Absolute neutrophil countOrd ered By: Maria Liriano on 09-13-2024 Neutrophils (Bld) [#/Vol] 3.9 10*3/uL 2.0-7.7 [facility] Anion gap in Serum or Plasma Ordered By: Maria Liriano on 09-13-2024 Anion gap [Moles/Vol] 12 mmol/L 5-15 [facility] Automated lymphocyte count a s percentage of total leukocytesOrdered By: Maria Liriano on 09-13-2024 Lymphocytes/100 WBC Auto (Unsp spec) 31.9 % 19-41 [facility] BUN/creatinine ratioOrdered By: Mariahanane Liriano on 09-13-2024 Urea nitrogen/Creatinine [Mass ratio] 7.7 mg/mg Low 10-20 [facility] Basophil percentageOrdered B y: Maria Liriano on 09-13-2024 Basophils/100 WBC (Bld) 0.6 % 0-1 [facility] Bilirubin, totalOrdered By: Maria Liriano on 09-13-2024 Bilirubin [Mass/Vol] 0.31 mg/dL 0.00-1.30 [facility] CBC W/Diff, Automatedon Absolute Lymph 2.20 X10 3/uL Normal 0.83-4.51 [facility] Comment on above: Performed By: #### L 500.4050, L100.0100 #### [facility] [address] [place], [place], [id number] Absolute Neut 3.9 X10 3/uL Normal 2.0-7.7 [facility] Comment on above: Performed By: #### L 500.4050, L100.0100 #### [facility] [address] [place], [address] Basophils/100 WBC (Bld) 0.6 % Normal 0-1 [facility] Comment on above: Performed By: #### L 500.4050, L100.0100 #### [facility] [address] [place], [address] Eosinophils/100 WBC (Bld) 1.2 % Normal 0-5 [facility] Comment on above: Performed By: #### L 500.4050, L100.0100 #### [facility] [address] [place], [address] Erythrocyte distribution width (RBC) [Ratio] 13.1 % Normal 11.6-14.6 [facility] Comment on above: Performed By: #### L 500.4050, L100.0100 #### [facility] [address] [place], [address] Hematocrit (Bld) [Volume fraction] 41.5 % Normal 37-47 [facility] Comment on above: Performed By: #### L 500.4050, L100.0100 #### [facility] [address] [place], [address] Hemoglobin (Bld) [Mass/Vol] 13.8 g/dL Normal 12.0-15.0 [facility] Comment on above: Performed By: #### L 500.4050, L100.0100 #### [facility] [address] [place], [address] IG% 0.100 Normal 0.0-0.9 [facility] Comment on above: Result Comment: IG% - Immature Granulocytes (promyelocytes, myelocytes and metamyelocytes) > 1% indicates that a LEFT SHIFT is Present. Performed By: #### L 500.4050, L100.0100 #### [facility] [address] [place], [address] Lymphocytes/100 WBC (Bld) 31.9 % Normal 19-41 [facility] Comment on above: Performed By: #### L 500.4050, L100.0100 #### [facility] [address] [place], [address] MCH (RBC) [Entitic mass] 31.4 pg Normal 27.0-32.0 [facility] Comment on above: Performed By: #### L 500.4050, L100.0100 #### [facility] [address] [place], [address] MCHC (RBC) [Mass/Vol] 33.3 g/dL Normal 32-36 [facility] Comment on above: Performed By: #### L 500.4050, L100.0100 #### [facility] [address] [place], [address] MCV (RBC) [Entitic vol] 94.5 fL Normal 81-99 [facility] Comment on above: Performed By: #### L 500.4050, L100.0100 #### [facility] [address] [place], [address] Monocytes/100 WBC (Bld) 10.0 % Normal 0-10 [facility] Comment on above: Performed By: #### L 500.4050, L100.0100 #### [facility] [address] [place], [address] Neutrophils/100 WBC (Bld) 56.2 % Normal 47-70 [facility] Comment on above: Performed By: #### L 500.4050, L100.0100 #### [facility] [address] [place], [address] Nucleated RBC (Bld) [#/Vol] 0 10*3/uL Normal 0-5 [facility] Comment on above: Performed By: #### L 500.4050, L100.0100 #### [facility] [address] [place], [address] Platelet mean volume (Bld) [Entitic vol] 10.6 fL Normal 6.2-12.0 [facility] Comment on above: Performed By: #### L 500.4050, L100.0100 #### [facility] [address] [place], [address] Platelets (Bld) [#/Vol] 243 10*3/uL Normal 150-450 [facility] Comment on above: Performed By: #### L 500.4050, L100.0100 #### [facility] [address] [place], [address] RBC (Bld) [#/Vol] 4.39 10*6/uL Normal 4.2-5.4 [facility] Comment on above: Performed By: #### L 500.4050, L100.0100 #### [facility] [address] [place], [address] RDW SD 45.3 fl High 35.1-43.9 [facility] Comment on above: Performed By: #### L 500.4050, L100.0100 #### [facility] [address] [place], [address] WBC (Bld) [#/Vol] 6.9 10*3/uL Normal 4.4-11.0 [facility] Comment on above: Performed By: #### L 500.4050, L100.0100 #### [facility] [address] [place], [address] Carbon dioxide, total [Moles /volume] in Central venous bloodOrdered By: Maria Liriano on 09-13-2024 CO2 [Moles/Vol] 22.0 mmol/L 21.0-32.0 [facility] Chloride assayOrdered By: Sheng Liriano on 09-13-2024 Chloride [Moles/Vol] 102 mmol/L 98-108 [facility] Comprehensive Metabolic Prof ilon 09-13-2024 Albumin [Mass/Vol] 4.3 g/dL Normal 3.5-5.0 [facility] Comment on above: Performed By: #### L 500.4050, L100.0100 #### [facility] [address] [place], [address] Albumin/Globulin [Mass ratio] 1.4 {ratio} Normal 0.9-2.4 [facility] Comment on above: Performed By: #### L 500.4050, L100.0100 #### [facility] [address] [place], [address] ALK PHOS 58 U/L Normal 35-104 [facility] Comment on above: Performed By: #### L 500.4050, L100.0100 #### [facility] [address] [place], [address] ALT [Catalytic activity/Vol] 38 U/L High <=34 [facility] Comment on above: Performed By: #### L 500.4050, L100.0100 #### [facility] [address] [place], [address] AST [Catalytic activity/Vol] 23 U/L Normal <=31 [facility] Comment on above: Performed By: #### L 500.4050, L100.0100 #### [facility] [address] [place], [address] Bilirubin [Mass/Vol] 0.31 mg/dL Normal 0.00-1.30 [facility] Comment on above: Performed By: #### L 500.4050, L100.0100 #### [facility] [address] [place], [address] BUN/CRE 7.7 RATIO Low 10-20 [facility] Comment on above: Performed By: #### L 500.4050, L100.0100 #### [facility] [address] [place], [address] Calcium [Mass/Vol] 9.6 mg/dL Normal 7.6-11.0 [facility] Comment on above: Performed By: #### L 500.4050, L100.0100 #### [facility] [address] [place], [address] Chloride [Moles/Vol] 102 mmol/L Normal 98-108 [facility] Comment on above: Performed By: #### L 500.4050, L100.0100 #### [facility] [address] [place], [address] CO2 [Moles/Vol] 22.0 mmol/L Normal 21.0-32.0 [facility] Comment on above: Performed By: #### L 500.4050, L100.0100 #### [facility] [address] [place], [address] Creatinine [Mass/Vol] 0.82 mg/dL Normal 0.70-1.20 [facility] Comment on above: Performed By: #### L 500.4050, L100.0100 #### [facility] [address] [place], [address] GAP 12 Normal 5-15 [facility] Comment on above: Performed By: #### L 500.4050, L100.0100 #### [facility] [address] [place], [address] GFR/1.73 sq M.predicted among non-blacks MDRD (S/P/Bld) [Vol rate/Area] 90 mL/min/{1.73_m2} Normal >60 [facility] Comment on above: Result Comment: mL/m in/1.73m2 CKD-EPI Creatinine Equation (2021) Performed By: #### L 500.4050, L100.0100 #### [facility] [address] [place], [address] Globulin (S) [Mass/Vol] 3.0 g/dL Normal 2.2-4.2 [facility] Comment on above: Performed By: #### L 500.4050, L100.0100 #### [facility] [address] [place], [address] Glucose [Mass/Vol] 103 mg/dL High 70-99 [facility] Comment on above: Performed By: #### L 500.4050, L100.0100 #### [facility] [address] [place], [address] Potassium [Moles/Vol] 4.0 mmol/L Normal 3.3-5.1 [facility] Comment on above: Performed By: #### L 500.4050, L100.0100 #### [facility] [address] [place], [address] Sodium [Moles/Vol] 136 mmol/L Normal 133-145 [facility] Comment on above: Performed By: #### L 500.4050, L100.0100 #### [facility] [address] [place], [address] T PROT 7.3 g/dL Normal 5.9-8.4 [facility] Comment on above: Performed By: #### L 500.4050, L100.0100 #### [facility] [address] [place], [address] Urea nitrogen [Mass/Vol] 6 mg/dL Normal 4-19 [facility] Comment on above: Performed By: #### L 500.4050, L100.0100 #### [facility] [address] [place], [address] Eosinophil percentageOrdered By: Maria Liriano on 09-13-2024 Eosinophils/100 WBC (Bld) 1.2 % 0-5 [facility] Erythrocyte distribution wid th ratioOrdered By: Maria Liriano on 09-13-2024 Erythrocyte distribution width (RBC) [Ratio] 13.1 % 11.6-14.6 [facility] Erythrocyte distribution wid th standard deviationOrdered By: Maria Liriano on 09-13-2024 Erythrocyte distribution width (RBC) [Ratio] 45.3 fl High 35.1-43.9 [facility] Glomerular filtration rate ( GFR) estimation/1.73 sq m using serum, plasma, or whole bOrdered By: Maria Liriano on 09-13-2024 GFR/1.73 sq M.predicted among non-blacks MDRD (S/P/Bld) [Vol rate/Area] 90 mL/min/{1.73_m2} >60 [facility] Comment on above: mL/min/1.73m2 CKD-EP I Creatinine Equation (2020) Hematocrit Auto (Bld) [Volum e fraction]Ordered By: Maria Liriano on 09-13-2024 Hematocrit (Bld) [Volume fraction] 41.5 % 37-47 [facility] Hemoglobin measurementOrdere d By: Maria Liriano on 09-13-2024 Hemoglobin (Bld) [Mass/Vol] 13.8 g/dL 12.0-15.0 [facility] Immature granulocytes/100 WB C Auto (Bld)Ordered By: Maria Liriano 09-13-2024 Immature granulocytes/100 WBC (Bld) 0.100 % 0.0-0.9 [facility] Comment on above: IG% - Immature Granu locytes (promyelocytes, myelocytes and metamyelocytes) > 1% indicates that a LEFT SHIFT is Present. Laboratory - Chemistry and C hemistry - challengeOrdered By: Maria Liriano on 09-13-2024 AST [Catalytic activity/Vol] 23 U/L <32 [facility] MCV (mean corpuscular volume ) determinationOrdered By: Maria Liriano on 09-13-2024 MCV (RBC) [Entitic vol] 94.5 fL 81-99 [facility] Mean corpuscular hemoglobin (MCH) determinationOrdered By: Maria Liriano on 09-13-2024 MCH (RBC) [Entitic mass] 31.4 pg 27.0-32.0 [facility] Mean corpuscular hemoglobin concentration (MCHC) determinationOrdered By: Maria Liriano on 09-13-2024 MCHC (RBC) [Mass/Vol] 33.3 g/dL 32-36 [facility] Mean platelet volume determi nationOrdered By: Maria Liriano on 09-13-2024 Platelet mean volume (Bld) [Entitic vol] 10.6 fL 6.2-12.0 [facility] Monocyte percentageOrdered B y: Maria Liriano on 09-13-2024 Monocytes/100 WBC (Bld) 10.0 % 0-10 [facility] Neutrophil percentageOrdered By: Maria Liriano on 09-13-2024 Neutrophils/100 WBC (Bld) 56.2 % 47-70 [facility] Nucleated red blood cell per centageOrdered By: Maria Liriano on 09-13-2024 Nucleated RBC/100 WBC (Bld) [Ratio] 0 % 0-5 [facility] Platelet countOrdered By: Sheng Liriano on 09-13-2024 Platelets (Bld) [#/Vol] 243 10*3/uL 150-450 [facility] Potassium measurement (mass/ volume)Ordered By: Maria Liriano on 09-13-2024 Potassium (Unsp spec) [Mass/Vol] 4.0 mmol/L 3.3-5.1 [facility] RBC Auto (Bld) [#/Vol]Ordere d By: Maria Liriano on 09-13-2024 RBC (Bld) [#/Vol] 4.39 10*6/uL 4.2-5.4 [facility] Serum creatinine measurement (mass/volume)Ordered By: Maria Liriano on 09-13-2024 Creatinine [Mass/Vol] 0.82 mg/dL 0.70-1.20 [facility] Serum globulin measurementOr dered By: Maria Liriano on 09-13-2024 Globulin (S) [Mass/Vol] 3.0 g/dL 2.2-4.2 [facility] Serum glucose measurement (m ass/volume)Ordered By: Maria Liriano on 09-13-2024 Glucose [Mass/Vol] 103 mg/dL High 70-99 [facility] Serum or plasma alanine jordan otransferase (ALT) measurementOrdered By: Maria Liriano on 09-13-2024 ALT [Catalytic activity/Vol] 38 U/L High <35 [facility] Serum or plasma albumin chey urement (mass/volume)Ordered By: Maria Liriano on 09-13-2024 Albumin [Mass/Vol] 4.3 g/dL 3.5-5.0 [facility] Serum or plasma albumin/glob ulin mass ratioOrdered By: Maria Liriano on 09-13-2024 Albumin/Globulin [Mass ratio] 1.4 {ratio} 0.9-2.4 [facility] Serum or plasma alkaline yony sphatase measurementOrdered By: Maria Liriano on 09-13-2024 ALP [Catalytic activity/Vol] 58 U/L 35-104 [facility] Serum or plasma calcium chey urement (mass/volume)Ordered By: Maria Liriano on 09-13-2024 Calcium [Mass/Vol] 9.6 mg/dL 7.6-11.0 [facility] Serum or plasma urea nitroge n measurement (mass/volume)Ordered By: Maria Liriano on 09-13-2024 Urea nitrogen [Mass/Vol] 6 mg/dL 4-19 [facility] Sodium levelOrdered By: Elana Liriano on 09-13-2024 Sodium [Moles/Vol] 136 mmol/L 133-145 [facility] Total proteinOrdered By: Jersey Liriano on 09-13-2024 Protein [Mass/Vol] 7.3 g/dL 5.9-8.4 [facility] White blood cell (WBC) count Ordered By: Maria Liriano on 09-13-2024 WBC (Bld) [#/Vol] 6.9 10*3/uL 4.4-11.0 [facility] Absolute lymphocyte countOrd ered By: Coral Martinez on 07-22-2024 Lymphocytes Auto (Unsp spec) [#/Vol] 1.80 10*3/uL 0.83-4.51 [facility] Absolute neutrophil countOrd ered By: Coral Andinoke on 07-22-2024 Neutrophils (Bld) [#/Vol] 3.8 10*3/uL 2.0-7.7 [facility] Anion gap in Serum or Plasma Ordered By: Moeedgardo Juan on 07-22-2024 Anion gap [Moles/Vol] 10 mmol/L 09-21 [facility] Automated lymphocyte count a s percentage of total leukocytesOrdered By: Moeedgardo Juan on 07-22-2024 Lymphocytes/100 WBC Auto (Unsp spec) 28.3 % 19- [facility] BUN/creatinine ratioOrdered By: Coral Juan on 07-22-2024 Urea nitrogen/Creatinine [Mass ratio] 10.6 mg/mg 10- [facility] Basophil percentageOrdered B y: Coral Martinez on 07-22-2024 Basophils/100 WBC (Bld) 0.9 % 0-1 [facility] Bilirubin, totalOrdered By: Coral Juan on 07-22-2024 Bilirubin [Mass/Vol] 0.21 mg/dL 0.00-1.30 [facility] CBC W/Diff, Automatedon 07-08 Absolute Lymph 1.80 X10 3/uL Normal 0.83-4.51 [facility] Comment on above: Order Comment: Order Date: 07/11/24Order Info: [id number] - CBCD Performed By: #### L 500.4050, L100.0100 #### [facility] [address] [place], [address] Absolute Neut 3.8 X10 3/uL Normal 2.0-7.7 [facility] Comment on above: Order Comment: Order Date: 07/11/24Order Info: [id number] - CBCD Performed By: #### L 500.4050, L100.0100 #### [facility] [address] [place], [address] Basophils/100 WBC (Bld) 0.9 % Normal 0-1 [facility] Comment on above: Order Comment: Order Date: 07/11/24Order Info: [id number] - CBCD Performed By: #### L 500.4050, L100.0100 #### [facility] [address] [place], [address] Eosinophils/100 WBC (Bld) 1.7 % Normal 0-5 [facility] Comment on above: Order Comment: Order Date: 07/11/24Order Info: [id number] - CBCD Performed By: #### L 500.4050, L100.0100 #### [facility] [address] [place], [address] Erythrocyte distribution width (RBC) [Ratio] 13.7 % Normal 11.6-14.6 [facility] Comment on above: Order Comment: Order Date: 07/11/24Order Info: [id number] - CBCD Performed By: #### L 500.4050, L100.0100 #### [facility] [address] [place], [address] Hematocrit (Bld) [Volume fraction] 38.7 % Normal 37-47 [facility] Comment on above: Order Comment: Order Date: 07/11/24Order Info: [id number] - CBCD Performed By: #### L 500.4050, L100.0100 #### [facility] [address] [place], [address] Hemoglobin (Bld) [Mass/Vol] 12.7 g/dL Normal 12.0-15.0 [facility] Comment on above: Order Comment: Order Date: 07/11/24Order Info: [id number] - CBCD Performed By: #### L 500.4050, L100.0100 #### [facility] [address] [place], [address] IG% 0.300 Normal 0.0-0.9 [facility] Comment on above: Order Comment: Order Date: 07/11/24Order Info: [id number] - CBCD Result Comment: IG% - Immature Granulocytes (promyelocytes, myelocytes and metamyelocytes) > 1% indicates that a LEFT SHIFT is Present. Performed By: #### L 500.4050, L100.0100 #### [facility] [address] [place], [address] Lymphocytes/100 WBC (Bld) 28.3 % Normal 19-41 [facility] Comment on above: Order Comment: Order Date: 07/11/24Order Info: [id number] - CBCD Performed By: #### L 500.4050, L100.0100 #### [facility] [address] [place], [address] MCH (RBC) [Entitic mass] 32.2 pg High 27.0-32.0 [facility] Comment on above: Order Comment: Order Date: 07/11/24Order Info: [id number] - CBCD Performed By: #### L 500.4050, L100.0100 #### [facility] [address] [place], [address] MCHC (RBC) [Mass/Vol] 32.8 g/dL Normal 32-36 [facility] Comment on above: Order Comment: Order Date: 07/11/24Order Info: [id number] - CBCD Performed By: #### L 500.4050, L100.0100 #### [facility] [address] [place], [address] MCV (RBC) [Entitic vol] 98.2 fL Normal 81-99 [facility] Comment on above: Order Comment: Order Date: 07/11/24Order Info: [id number] - CBCD Performed By: #### L 500.4050, L100.0100 #### [facility] [address] [place], [address] Monocytes/100 WBC (Bld) 9.1 % Normal 0-10 [facility] Comment on above: Order Comment: Order Date: 07/11/24Order Info: [id number] - CBCD Performed By: #### L 500.4050, L100.0100 #### [facility] [address] [place], [address] Neutrophils/100 WBC (Bld) 59.7 % Normal 47-70 [facility] Comment on above: Order Comment: Order Date: 07/11/24Order Info: [id number] - CBCD Performed By: #### L 500.4050, L100.0100 #### [facility] [address] [place], [address] Nucleated RBC (Bld) [#/Vol] 0 10*3/uL Normal 0-5 [facility] Comment on above: Order Comment: Order Date: 07/11/24Order Info: [id number] - CBCD Performed By: #### L 500.4050, L100.0100 #### [facility] [address] [place], [address] Platelet mean volume (Bld) [Entitic vol] 9.6 fL Normal 6.2-12.0 [facility] Comment on above: Order Comment: Order Date: 07/11/24Order Info: [id number] - CBCD Performed By: #### L 500.4050, L100.0100 #### [facility] [address] [place], [address] Platelets (Bld) [#/Vol] 240 10*3/uL Normal 150-450 [facility] Comment on above: Order Comment: Order Date: 07/11/24Order Info: [id number] - CBCD Performed By: #### L 500.4050, L100.0100 #### [facility] [address] [place], [address] RBC (Bld) [#/Vol] 3.94 10*6/uL Low 4.2-5.4 [facility] Comment on above: Order Comment: Order Date: 07/11/24Order Info: [id number] - CBCD Performed By: #### L 500.4050, L100.0100 #### [facility] [address] [place], [address] RDW SD 49.8 fl High 35.1-43.9 [facility] Comment on above: Order Comment: Order Date: 07/11/24Order Info: [id number] - CBCD Performed By: #### L 500.4050, L100.0100 #### [facility] [address] [place], [address] WBC (Bld) [#/Vol] 6.4 10*3/uL Normal 4.4-11.0 [facility] Comment on above: Order Comment: Order Date: 07/11/24Order Info: [id number] - CBCD Performed By: #### L 500.4050, L100.0100 #### [facility] [address] [place], [address] Calculated very low density lipoprotein (VLDL) cholesterol measurementOrdered By: Coral Martinez on 07-22-2024 Calculated very low density lipoprotein (VLDL) cholesterol measurement 17 mg/dL 5-40 [facility] VLDL Cholesterol 17 mg/dL 5-40 [facility] Carbon dioxide, total [Moles /volume] in Central venous bloodOrdered By: Coral Martinez on 07-22-2024 CO2 [Moles/Vol] 24.0 mmol/L 21.0-32.0 [facility] Chloride assayOrdered By: Es Martinez on 07-22-2024 Chloride [Moles/Vol] 103 mmol/L 98-108 [facility] Comprehensive Metabolic Prof ilon 07-22-2024 Albumin [Mass/Vol] 4.1 g/dL Normal 3.5-5.0 [facility] Comment on above: Order Comment: Order Date: 07/11/24Order Info: [id number] - CMPOrder Info: [id number] - LIPIDOrder Info: [id number] - TSH Performed By: #### L 500.4050, L100.0100 #### [facility] [address] [place], [address] Albumin/Globulin [Mass ratio] 1.4 {ratio} Normal 0.9-2.4 [facility] Comment on above: Order Comment: Order Date: 07/11/24Order Info: [id number] - CMPOrder Info: [id number] - LIPIDOrder Info: [id number] - TSH Performed By: #### L 500.4050, L100.0100 #### [facility] [address] [place], [address] ALK PHOS 70 U/L Normal 35-104 [facility] Comment on above: Order Comment: Order Date: 07/11/24Order Info: [id number] - CMPOrder Info: [id number] - LIPIDOrder Info: [id number] - TSH Performed By: #### L 500.4050, L100.0100 #### [facility] [address] [place], [address] ALT [Catalytic activity/Vol] 35 U/L Normal <=34 [facility] Comment on above: Order Comment: Order Date: 07/11/24Order Info: [id number] - CMPOrder Info: [id number] - LIPIDOrder Info: [id number] - TSH Performed By: #### L 500.4050, L100.0100 #### [facility] [address] [place], [address] AST [Catalytic activity/Vol] 32 U/L Normal <=31 [facility] Comment on above: Order Comment: Order Date: 07/11/24Order Info: [id number] - CMPOrder Info: [id number] - LIPIDOrder Info: [id number] - TSH Performed By: #### L 500.4050, L100.0100 #### [facility] [address] [place], [address] Bilirubin [Mass/Vol] 0.21 mg/dL Normal 0.00-1.30 [facility] Comment on above: Order Comment: Order Date: 07/11/24Order Info: [id number] - CMPOrder Info: [id number] - LIPIDOrder Info: [id number] - TSH Performed By: #### L 500.4050, L100.0100 #### [facility] [address] [place], [address] BUN/CRE 10.6 RATIO Normal 10-20 [facility] Comment on above: Order Comment: Order Date: 07/11/24Order Info: [id number] - CMPOrder Info: [id number] - LIPIDOrder Info: [id number] - TSH Performed By: #### L 500.4050, L100.0100 #### [facility] [address] [place], [address] Calcium [Mass/Vol] 8.7 mg/dL Normal 7.6-11.0 [facility] Comment on above: Order Comment: Order Date: 07/11/24Order Info: [id number] - CMPOrder Info: [id number] - LIPIDOrder Info: [id number] - TSH Performed By: #### L 500.4050, L100.0100 #### [facility] [address] [place], [address] Chloride [Moles/Vol] 103 mmol/L Normal 98-108 [facility] Comment on above: Order Comment: Order Date: 07/11/24Order Info: [id number] - CMPOrder Info: [id number] - LIPIDOrder Info: [id number] - TSH Performed By: #### L 500.4050, L100.0100 #### [facility] [address] [place], [address] CO2 [Moles/Vol] 24.0 mmol/L Normal 21.0-32.0 [facility] Comment on above: Order Comment: Order Date: 07/11/24Order Info: [id number] - CMPOrder Info: [id number] - LIPIDOrder Info: [id number] - TSH Performed By: #### L 500.4050, L100.0100 #### [facility] [address] [place], [address] Creatinine [Mass/Vol] 0.83 mg/dL Normal 0.70-1.20 [facility] Comment on above: Order Comment: Order Date: 07/11/24Order Info: [id number] - CMPOrder Info: [id number] - LIPIDOrder Info: [id number] - TSH Performed By: #### L 500.4050, L100.0100 #### [facility] [address] [place], [address] GAP 10 Normal 5-15 [facility] Comment on above: Order Comment: Order Date: 07/11/24Order Info: [id number] - CMPOrder Info: [id number] - LIPIDOrder Info: [id number] - TSH Performed By: #### L 500.4050, L100.0100 #### [facility] [address] [place], [address] GFR/1.73 sq M.predicted among non-blacks MDRD (S/P/Bld) [Vol rate/Area] 89 mL/min/{1.73_m2} Normal >60 [facility] Comment on above: Order Comment: Order Date: 07/11/24Order Info: [id number] - CMPOrder Info: [id number] - LIPIDOrder Info: [id number] - TSH Result Comment: mL/m in/1.73m2 CKD-EPI Creatinine Equation (2020) Performed By: #### L 500.4050, L100.0100 #### [facility] [address] [place], [address] Globulin (S) [Mass/Vol] 2.9 g/dL Normal 2.2-4.2 [facility] Comment on above: Order Comment: Order Date: 07/11/24Order Info: [id number] - CMPOrder Info: [id number] - LIPIDOrder Info: [id number] - TSH Performed By: #### L 500.4050, L100.0100 #### [facility] [address] [place], [address] Glucose [Mass/Vol] 98 mg/dL Normal 70-99 [facility] Comment on above: Order Comment: Order Date: 07/11/24Order Info: [id number] - CMPOrder Info: [id number] - LIPIDOrder Info: [id number] - TSH Performed By: #### L 500.4050, L100.0100 #### [facility] [address] [place], [address] Potassium [Moles/Vol] 4.3 mmol/L Normal 3.3-5.1 [facility] Comment on above: Order Comment: Order Date: 07/11/24Order Info: [id number] - CMPOrder Info: [id number] - LIPIDOrder Info: [id number] - TSH Performed By: #### L 500.4050, L100.0100 #### [facility] [address] [place], [address] Sodium [Moles/Vol] 137 mmol/L Normal 133-145 [facility] Comment on above: Order Comment: Order Date: 07/11/24Order Info: [id number] - CMPOrder Info: [id number] - LIPIDOrder Info: [id number] - TSH Performed By: #### L 500.4050, L100.0100 #### [facility] [address] [place], [address] T PROT 6.9 g/dL Normal 5.9-8.4 [facility] Comment on above: Order Comment: Order Date: 07/11/24Order Info: [id number] - CMPOrder Info: [id number] - LIPIDOrder Info: [id number] - TSH Performed By: #### L 500.4050, L100.0100 #### [facility] [address] [place], [address] Urea nitrogen [Mass/Vol] 9 mg/dL Normal 4-19 [facility] Comment on above: Order Comment: Order Date: 07/11/24Order Info: [id number] - CMPOrder Info: [id number] - LIPIDOrder Info: [id number] - TSH Performed By: #### L 500.4050, L100.0100 #### [facility] [address] [place], [address] Eosinophil percentageOrdered By: Coral Martinez on 07-22-2024 Eosinophils/100 WBC (Bld) 1.7 % 0-5 [facility] Erythrocyte distribution wid th ratioOrdered By: Coral Martinez on 07-22-2024 Erythrocyte distribution width (RBC) [Ratio] 13.7 % 11.6-14.6 [facility] Erythrocyte distribution wid th standard deviationOrdered By: Coral Martinez on 07-22-2024 Erythrocyte distribution width (RBC) [Entitic vol] 49.8 fL High 35.1-43.9 [facility] Erythrocyte distribution width (RBC) [Ratio] 49.8 fl High 35.1-43.9 [facility] GFR/1.73 sq M.predicted diana g non-blacks MDRD (S/P/Bld) [Vol rate/Area]Ordered By: Coral Martinez on 07-22-2024 Estimated GFR (MDRD) Non-Af Amer 89 >60 [facility] Comment on above: mL/min/1.73m2 CKD-EP I Creatinine Equation (2020) Glomerular filtration rate ( GFR) estimation/1.73 sq m using serum, plasma, or whole bOrdered By: Coral Martinez on 07-22-2024 GFR/1.73 sq M.predicted among non-blacks MDRD (S/P/Bld) [Vol rate/Area] 89 mL/min/{1.73_m2} >60 [facility] Comment on above: mL/min/1.73m2 CKD-EP I Creatinine Equation (2020) Hematocrit Auto (Bld) [Volum e fraction]Ordered By: Coral Martinez on 07-22-2024 Hematocrit (Bld) [Volume fraction] 38.7 % 37-47 [facility] Hemoglobin measurementOrdere d By: Coral Martinez on 07-22-2024 Hemoglobin (Bld) [Mass/Vol] 12.7 g/dL 12.0-15.0 [facility] Immature granulocytes/100 WB C Auto (Bld)Ordered By: Coral Martinez on 07-22-2024 Immature granulocytes/100 WBC (Bld) 0.300 % 0.0-0.9 [facility] Comment on above: IG% - Immature Granu locytes (promyelocytes, myelocytes and metamyelocytes) > 1% indicates that a LEFT SHIFT is Present. L506.1001on 07-22-2024 Vitamin D 25-OH 25.0 ng/mL Low 30-100 [facility] Comment on above: Order Comment: Order Date: 07/11/24 Order Info: [id number] - CMP Order Info: [id number] - LIPID Order Info: [id number] - TSH Result Comment: Linnea min D Status Deficiency: <20 ng/mL (50nmol/L) Insufficiency: 20-30 ng/mL (50-75 nmol/L) Sufficiency: 30-100 ng/mL (75-250 nmol/L) Toxicity: >100 ng/mL (>250 nmol/L) Performed By: #### L 506.1001 #### [facility] [address] [place], [place] [address], [place], [address] LDL calc ser/plasOrdered By: Coral Martinez on 07-22-2024 Cholesterol in LDL [Mass/Vol] 76 mg/dL [facility] Comment on above: Whvdzychke=882-500 m g/dL & Higher Peqk=287 mg/dL or greater LDL Cholesterol, Calculated 76 mg/dL [facility] Comment on above: Dtjfrqjufj=775-051 m g/dL & Higher Ydgu=455 mg/dL or greater Laboratory - Chemistry and C hemistry - challengeOrdered By: Coral Martinez on 07-22-2024 AST [Catalytic activity/Vol] 32 U/L <32 [facility] Lipid Profileon 07-22-2024 CHOL:HDL 2.31 Normal [facility] Comment on above: Order Comment: Order Date: 07/11/24Order Info: [id number] - CMPOrder Info: [id number] - LIPIDOrder Info: [id number] - TSH Performed By: #### L 500.4050, L100.0100 #### [facility] [address] [place], [address] Cholesterol [Mass/Vol] 163 mg/dL Normal <=200 [facility] Comment on above: Order Comment: Order Date: 07/11/24Order Info: [id number] - CMPOrder Info: [id number] - LIPIDOrder Info: [id number] - TSH Result Comment: Chol esterol level, Desirable <200 mg/dL Borderline high cholesterol 200-239 mg/dL High cholesterol >=240 mg/dL Recommendations of the NCEP Adult Treatment Panel for the following risk-cutoff thresholds for the [place] population. Performed By: #### L 500.4050, L100.0100 #### [facility] [address] [place], [address] Cholesterol in HDL [Mass/Vol] 71 mg/dL Normal [facility] Comment on above: Order Comment: Order Date: 07/11/24Order Info: [id number] - CMPOrder Info: - LIPIDOrder Info: [id number] - TSH Result Comment: [place] onal Cholesterol Education Program (NCEP) guidelines: <40 mg/dL: Low HDL-cholesterol (major risk factor for CHD) >= 60 mg/dL: High HDL-cholesterol (negative risk factor for CHD) HDL-cholesterol is affected by a number of factors, e.g. smoking, exercise, hormones, sex and age. Performed By: #### L 500.4050, L100.0100 #### [facility] [address] [place], [address] Cholesterol in LDL [Mass/Vol] 76 mg/dL Normal [facility] Comment on above: Order Comment: Order Date: 07/11/24Order Info: [id number] - CMPOrder Info: [id number] - LIPIDOrder Info: [id number] - TSH Result Comment: Bord elxzci=085-281 mg/dL Higher Ujct=488 mg/dL or greater Performed By: #### L 500.4050, L100.0100 #### [facility] [address] [place], [address] Cholesterol in VLDL [Mass/Vol] 17 mg/dL Normal 5-40 [facility] Comment on above: Order Comment: Order Date: 07/11/24Order Info: [id number] - CMPOrder Info: [id number] - LIPIDOrder Info: [id number] - TSH Performed By: #### L 500.4050, L100.0100 #### [facility] [address] [place], [address] Triglyceride [Mass/Vol] 84 mg/dL Normal [facility] Comment on above: Order Comment: Order Date: 07/11/24Order Info: [id number] - CMPOrder Info: [id number] - LIPIDOrder Info: [id number] - TSH Result Comment: The drugs N-Acetylcysteine and Metamizole may falsely depress this assay. Normal range: <150 mg/dL Borderline High: 150-199 mg/dL High: 200-499 mg/dL Very High: >500 mg/dL Performed By: #### L 500.4050, L100.0100 #### [facility] [address] [place], [address] Lymphocytes Auto (Unsp spec) [#/Vol]Ordered By: Coral Martinez on 07-22-2024 Lymphocytes (Bld) [#/Vol] 1.80 10*3/uL 0.83-4.51 [facility] Lymphocytes/100 WBC Auto (Un sp spec)Ordered By: Coral Martinez on 07-22-2024 Lymphocytes/100 WBC (Bld) 28.3 % 19-41 [facility] MCV (mean corpuscular volume ) determinationOrdered By: Coral Martinez on 07-22-2024 MCV (RBC) [Entitic vol] 98.2 fL 81-99 [facility] Mean corpuscular hemoglobin (MCH) determinationOrdered By: Coral Martinez on 07-22-2024 MCH (RBC) [Entitic mass] 32.2 pg High 27.0-32.0 [facility] Mean corpuscular hemoglobin concentration (MCHC) determinationOrdered By: Coral Martinez on 07-22-2024 MCHC (RBC) [Mass/Vol] 32.8 g/dL 32-36 [facility] Mean platelet volume determi nationOrdered By: Coral Martinez on 07-22-2024 Platelet mean volume (Bld) [Entitic vol] 9.6 fL 6.2-12.0 [facility] Monocyte percentageOrdered B y: Coral Martinez on 07-22-2024 Monocytes/100 WBC (Bld) 9.1 % 0-10 [facility] Neutrophil percentageOrdered By: Coral Martinez on 07-22-2024 Neutrophils/100 WBC (Bld) 59.7 % 47-70 [facility] Nucleated red blood cell per centageOrdered By: Coral Martinez on 07-22-2024 Nucleated RBC/100 WBC (Bld) [Ratio] 0 % 0-5 [facility] Platelet countOrdered By: Es Martinez on 07-22-2024 Platelets (Bld) [#/Vol] 240 10*3/uL 150-450 [facility] Potassium (Unsp spec) [Mass/ Vol]Ordered By: Coral Martinez on 07-22-2024 Potassium [Moles/Vol] 4.3 mmol/L 3.3-5.1 [facility] Potassium measurement (mass/ volume)Ordered By: Coral Martinez on 07-22-2024 Potassium (Unsp spec) [Mass/Vol] 4.3 mmol/L 3.3-5.1 [facility] RBC Auto (Bld) [#/Vol]Ordere d By: Coral Martinez on 07-22-2024 RBC (Bld) [#/Vol] 3.94 10*6/uL Low 4.2-5.4 [facility] Screening total cholesterol/ high density lipoprotein (HDL) cholesterol ratioOrdered By: Coral Martinez on 07-22-2024 Cholesterol.total/Choles terol in HDL [Mass ratio] 2.31 {ratio} [facility] Serum creatinine measurement (mass/volume)Ordered By: Coral Martinez on 07-22-2024 Creatinine [Mass/Vol] 0.83 mg/dL 0.70-1.20 [facility] Serum globulin measurementOr dered By: Coral Martinez on 07-22-2024 Globulin (S) [Mass/Vol] 2.9 g/dL 2.2-4.2 [facility] Serum glucose measurement (m ass/volume)Ordered By: Coral Martinez on 07-22-2024 Glucose [Mass/Vol] 98 mg/dL 70-99 [facility] Serum or plasma alanine jordan otransferase (ALT) measurementOrdered By: Coral Martinez on 07-22-2024 ALT [Catalytic activity/Vol] 35 U/L <35 [facility] Serum or plasma albumin chey urement (mass/volume)Ordered By: Coral Martinez on 07-22-2024 Albumin [Mass/Vol] 4.1 g/dL 3.5-5.0 [facility] Serum or plasma albumin/glob ulin mass ratioOrdered By: Coral Martinez on 07-22-2024 Albumin/Globulin [Mass ratio] 1.4 {ratio} 0.9-2.4 [facility] Serum or plasma alkaline yony sphatase measurementOrdered By: Coral Martinez on 07-22-2024 ALP [Catalytic activity/Vol] 70 U/L 35-104 [facility] Serum or plasma calcium chey urement (mass/volume)Ordered By: Coral Martinez on 07-22-2024 Calcium [Mass/Vol] 8.7 mg/dL 7.6-11.0 [facility] Serum or plasma cholesterol in HDL measurement (mass/volume)Ordered By: Coral Martinez on 07-22-2024 Cholesterol in HDL [Mass/Vol] 71 mg/dL >40 [facility] Comment on above: National Cholesterol Education Program (NCEP) guidelines:<40 mg/dL: Low HDL-cholesterol (major risk factor for CHD)>= 60 mg/dL: High HDL-cholesterol (negative risk factor for CHD)HDL-cholesterol is affected by a number of factors, e.g. smoking, exercise, hormones, sex and age. Serum or plasma cholesterol measurement (mass/volume)Ordered By: Coral Martinez on 07-22-2024 Cholesterol [Mass/Vol] 163 mg/dL <201 [facility] Comment on above: Cholesterol level, D esirable <200 mg/dLBorderline high cholesterol 200-239 mg/dLHigh cholesterol >=240 mg/dLRecommendations of the NCEP Adult Treatment Panel for the following risk-cutoff thresholds for the [place] population. Serum or plasma urea nitroge n measurement (mass/volume)Ordered By: Coral Martinez on 07-22-2024 Urea nitrogen [Mass/Vol] 9 mg/dL 4-19 [facility] Sodium levelOrdered By: Moe Martinez on 07-22-2024 Sodium [Moles/Vol] 137 mmol/L 133-145 [facility] TSH DL <= 0.005 mIU/L QnOrde red By: Coral Martinez on 07-22-2024 Thyroid Stimulating Hormone (TSH) 0.289 uIU/mL Low 0.300-4.200 [facility] TSH Qn 0.289 uIU/mL Low 0.300-4.200 [facility] Thyroid Stim Hormone (TSH)on 07-22-2024 TSH 0.289 uIU/mL Low 0.300-4.200 [facility] Comment on above: Order Comment: Order Date: 07/11/24Order Info: [id number] - CMPOrder Info: [id number] - LIPIDOrder Info: [id number] - TSH Performed By: #### L 500.4050, L100.0100 #### [facility] [address] [place], [address] Total proteinOrdered By: Karo Martinez on 07-22-2024 Protein [Mass/Vol] 6.9 g/dL 5.9-8.4 [facility] Triglycerides measurementOrd ered By: Coral Martinez on 07-22-2024 Triglyceride [Mass/Vol] 84 mg/dL <199 [facility] Comment on above: The drugs N-Acetylcy steine and Metamizole may falsely depress this assay. Normal range: <150 mg/dLBorderline High: 150-199 mg/dLHigh: 200-499 mg/dLVery High: >500 mg/dL Vitamin D, 25-hydroxyOrdered By: Coral Martinez on 07-22-2024 Vitamin D 25-Hydroxy 25.0 ng/mL Low 30-100 [facility] Comment on above: Vitamin D StatusDefi ciency: <20 ng/mL (50nmol/L)Insufficiency: 20-30 ng/mL (50-75 nmol/L)Sufficiency: 30-100 ng/mL (75-250 nmol/L)Toxicity: >100 ng/mL (>250 nmol/L) White blood cell (WBC) count Ordered By: Coral Martinez on 07-22-2024 WBC (Bld) [#/Vol] 6.4 10*3/uL 4.4-11.0 [facility] Absolute lymphocyte countOrd ered By: Mariahanane Liriano on 06-21-2024 Lymphocytes Auto (Unsp spec) [#/Vol] 2.27 10*3/uL 0.83-4.51 [facility] Absolute neutrophil countOrd ered By: Maria Liriano on 06-21-2024 Neutrophils (Bld) [#/Vol] 3.8 10*3/uL 2.0-7.7 [facility] Albumin to globulin ratioOrd ered By: Maria Liriano on 06-21-2024 Albumin/Globulin [Mass ratio] 0.9 {ratio} 0.9-2.4 [facility] Automated lymphocyte count a s percentage of total leukocytesOrdered By: Maria Liriano on 06-21-2024 Lymphocytes/100 WBC Auto (Unsp spec) 33.0 % 19-41 [facility] Basophil percentageOrdered B y: Maria Liriano on 06-21-2024 Basophils/100 WBC (Bld) 0.6 % 0-1 [facility] Bilirubin, totalOrdered By: Maria Liriano on 06-21-2024 Bilirubin [Mass/Vol] 0.30 mg/dL 0.20-1.00 [facility] Comment on above: For patients on eltr ombopag therapy, use of Dimension [place]well TBIL is not recommended. Blood urea nitrogen (BUN)/cr eatinine ratioOrdered By: Maria Liriano on 06-21-2024 Urea nitrogen/Creatinine [Mass ratio] 11.6 mg/mg 10-20 [facility] CBC W/Diff, Automatedon 06-10 Absolute Lymph 2.27 X10 3/uL Normal 0.83-4.51 [facility] Comment on above: Performed By: #### L 100.0100, L500.4050 #### [facility] [address] [place], [address] Absolute Neut 3.8 X10 3/uL Normal 2.0-7.7 [facility] Comment on above: Performed By: #### L 100.0100, L500.4050 #### [facility] [address] [place], [address] Basophils/100 WBC (Bld) 0.6 % Normal 0-1 [facility] Comment on above: Performed By: #### L 100.0100, L500.4050 #### [facility] [address] [place], [address] Eosinophils/100 WBC (Bld) 1.6 % Normal 0-5 [facility] Comment on above: Performed By: #### L 100.0100, L500.4050 #### [facility] [address] [place], [address] Erythrocyte distribution width (RBC) [Ratio] 13.6 % Normal 11.6-14.6 [facility] Comment on above: Performed By: #### L 100.0100, L500.4050 #### [facility] [address] [place], [address] Hematocrit (Bld) [Volume fraction] 38.6 % Normal 37-47 [facility] Comment on above: Performed By: #### L 100.0100, L500.4050 #### [facility] [address] [place], [address] Hemoglobin (Bld) [Mass/Vol] 12.7 g/dL Normal 12.0-15.0 [facility] Comment on above: Performed By: #### L 100.0100, L500.4050 #### [facility] [address] [place], [address] IG% 0.100 Normal 0.0-0.9 [facility] Comment on above: Result Comment: IG% - Immature Granulocytes (promyelocytes, myelocytes and metamyelocytes) > 1% indicates that a LEFT SHIFT is Present. Performed By: #### L 100.0100, L500.4050 #### [facility] [address] [place], [address] Lymphocytes/100 WBC (Bld) 33.0 % Normal 19-41 [facility] Comment on above: Performed By: #### L 100.0100, L500.4050 #### [facility] [address] [place], [address] MCH (RBC) [Entitic mass] 32.2 pg High 27.0-32.0 [facility] Comment on above: Performed By: #### L 100.0100, L500.4050 #### [facility] [address] [place], [address] MCHC (RBC) [Mass/Vol] 32.9 g/dL Normal 32-36 [facility] Comment on above: Performed By: #### L 100.0100, L500.4050 #### [facility] [address] [place], [address] MCV (RBC) [Entitic vol] 97.7 fL Normal 81-99 [facility] Comment on above: Performed By: #### L 100.0100, L500.4050 #### [facility] [address] [place], [address] Monocytes/100 WBC (Bld) 9.8 % Normal 0-10 [facility] Comment on above: Performed By: #### L 100.0100, L500.4050 #### [facility] [address] [place], [address] Neutrophils/100 WBC (Bld) 54.9 % Normal 47-70 [facility] Comment on above: Performed By: #### L 100.0100, L500.4050 #### [facility] [address] [place], [address] Nucleated RBC (Bld) [#/Vol] 0 10*3/uL Normal 0-5 [facility] Comment on above: Performed By: #### L 100.0100, L500.4050 #### [facility] [address] [place], [address] Platelet mean volume (Bld) [Entitic vol] 10.4 fL Normal 6.2-12.0 [facility] Comment on above: Performed By: #### L 100.0100, L500.4050 #### [facility] [address] [place], [address] Platelets (Bld) [#/Vol] 248 10*3/uL Normal 150-450 [facility] Comment on above: Performed By: #### L 100.0100, L500.4050 #### [facility] [address] [place], [address] RBC (Bld) [#/Vol] 3.95 10*6/uL Low 4.2-5.4 [facility] Comment on above: Performed By: #### L 100.0100, L500.4050 #### [facility] [address] [place], [address] RDW SD 48.3 fl High 35.1-43.9 [facility] Comment on above: Performed By: #### L 100.0100, L500.4050 #### [facility] [address] [place], [address] WBC (Bld) [#/Vol] 6.9 10*3/uL Normal 4.4-11.0 [facility] Comment on above: Performed By: #### L 100.0100, L500.4050 #### [facility] [address] [place], [address] Carbon dioxide measurementOr dered By: Maria Liriano on 06-21-2024 CO2 [Moles/Vol] 27.0 mmol/L 21.0-32.0 [facility] Chloride measurementOrdered By: Maria Liriano on 06-21-2024 Chloride [Moles/Vol] 104 mmol/L 98-107 [facility] Comprehensive Metabolic Prof ilon 06-21-2024 Albumin [Mass/Vol] 3.6 g/dL Normal 3.2-5.0 [facility] Comment on above: Performed By: #### L 100.0100, L500.4050 #### [facility] [address] [place], [address] Albumin/Globulin [Mass ratio] 0.9 {ratio} Normal 0.9-2.4 [facility] Comment on above: Performed By: #### L 100.0100, L500.4050 #### [facility] [address] [place], [address] ALK P 83 U/L Normal 45-117 [facility] Comment on above: Performed By: #### L 100.0100, L500.4050 #### [facility] [address] [place] [place], [address] ALT [Catalytic activity/Vol] 34 U/L Normal 13-56 [facility] Comment on above: Performed By: #### L 100.0100, L500.4050 #### [facility] [address] [place], [address] AST [Catalytic activity/Vol] 18 U/L Normal 15-37 [facility] Comment on above: Performed By: #### L 100.0100, L500.4050 #### [facility] [address] [place] [place], [address] Bilirubin [Mass/Vol] 0.30 mg/dL Normal 0.20-1.00 [facility] Comment on above: Result Comment: For patients on eltrombopag therapy, use of Dimension [place]well TBIL is not recommended. Performed By: #### L 100.0100, L500.4050 #### [facility] [address] [place], [address] BUN/CRE 11.6 RATIO Normal 10-20 [facility] Comment on above: Performed By: #### L 100.0100, L500.4050 #### [facility] [address] [place], [address] CA,Total 8.7 mg/dL Normal 8.5-10.1 [facility] Comment on above: Performed By: #### L 100.0100, L500.4050 #### [facility] [address] [place] [place], [address] Chloride [Moles/Vol] 104 mmol/L Normal 98-107 [facility] Comment on above: Performed By: #### L 100.0100, L500.4050 #### [facility] [address] [place], [address] CO2 [Moles/Vol] 27.0 mmol/L Normal 21.0-32.0 [facility] Comment on above: Performed By: #### L 100.0100, L500.4050 #### [facility] [address] [place], [address] Creatinine [Mass/Vol] 0.86 mg/dL Normal 0.55-1.02 [facility] Comment on above: Result Comment: The validity of the calculated GFR GFRAA in patients over 70 years has not been determined. Clinical correlation is essential. Performed By: #### L 100.0100, L500.4050 #### [facility] [address] [place], [address] EST GFR - AA 92 mL/min Normal >60 [facility] Comment on above: Result Comment: Afri can [place] GFR Calc Performed By: #### L 100.0100, L500.4050 #### [facility] [address] [place], [address] GAP 8 Normal 5-15 [facility] Comment on above: Performed By: #### L 100.0100, L500.4050 #### [facility] [address] [place], [address] GFR/1.73 sq M.predicted among non-blacks MDRD (S/P/Bld) [Vol rate/Area] 76 mL/min/{1.73_m2} Normal >60 [facility] Comment on above: Result Comment: Non- GFR Calc Performed By: #### L 100.0100, L500.4050 #### [facility] [address] [place], [address] Globulin (S) [Mass/Vol] 3.9 g/dL Normal 2.2-4.2 [facility] Comment on above: Performed By: #### L 100.0100, L500.4050 #### [facility] [address] [place], [address] Glucose [Mass/Vol] 98 mg/dL Normal 74-106 [facility] Comment on above: Performed By: #### L 100.0100, L500.4050 #### [facility] [address] [place], [address] Potassium [Moles/Vol] 4.1 mmol/L Normal 3.5-5.1 [facility] Comment on above: Performed By: #### L 100.0100, L500.4050 #### [facility] [address] [place], [address] Sodium [Moles/Vol] 138 mmol/L Normal 136-145 [facility] Comment on above: Performed By: #### L 100.0100, L500.4050 #### [facility] [address] [place], [address] T PROT 7.5 g/dL Normal 6.4-8.2 [facility] Comment on above: Performed By: #### L 100.0100, L500.4050 #### [facility] [address] [place], [address] Urea nitrogen [Mass/Vol] 10 mg/dL Normal 7-18 [facility] Comment on above: Performed By: #### L 100.0100, L500.4050 #### [facility] [address] [place], [address] Eosinophil percentageOrdered By: Maria Liriano on 06-21-2024 Eosinophils/100 WBC (Bld) 1.6 % 0-5 [facility] Erythrocyte distribution wid th ratioOrdered By: Maria Liriano on 06-21-2024 Erythrocyte distribution width (RBC) [Ratio] 13.6 % 11.6-14.6 [facility] Erythrocyte distribution wid th standard deviationOrdered By: Maria Liriano on 06-21-2024 Erythrocyte distribution width (RBC) [Entitic vol] 48.3 fL High 35.1-43.9 [facility] Erythrocyte distribution width (RBC) [Ratio] 48.3 fl High 35.1-43.9 [facility] Estimated glomerular filtrat ion rate (GFR) AmericanOrdered By: Maria Liriano on 06-21-2024 Estimated GFR (MDRD) Amer 92 mL/min >60 [facility] Comment on above: GFR Calc Glomerular filtration rate ( GFR) estimationOrdered By: Maria Liriano on 06-21-2024 Estimated GFR (MDRD) Non-Af Amer 76 mL/min >60 [facility] Comment on above: Non- GFR Calc GFR/1.73 sq M.predicted among non-blacks MDRD (S/P/Bld) [Vol rate/Area] 76 mL/min/{1.73_m2} >60 [facility] Comment on above: Non- GFR Calc Glucose measurementOrdered B y: Maria Liriano on 06-21-2024 Glucose [Mass/Vol] 98 mg/dL 74-106 [facility] Hematocrit Auto (Bld) [Volum e fraction]Ordered By: Maria Liriano on 06-21-2024 Hematocrit (Bld) [Volume fraction] 38.6 % 37-47 [facility] Hemoglobin measurementOrdere d By: Maria Liriano on 06-21-2024 Hemoglobin (Bld) [Mass/Vol] 12.7 g/dL 12.0-15.0 [facility] Immature granulocytes/100 WB C Auto (Bld)Ordered By: Maria Liriano on 06-21-2024 Immature granulocytes/100 WBC (Bld) 0.100 % 0.0-0.9 [facility] Comment on above: IG% - Immature Granu locytes (promyelocytes, myelocytes and metamyelocytes) > 1% indicates that a LEFT SHIFT is Present. Laboratory - Chemistry and C hemistry - challengeOrdered By: Maria Liriano on 06-21-2024 AST [Catalytic activity/Vol] 18 U/L 15-37 [facility] Lymphocytes Auto (Unsp spec) [#/Vol]Ordered By: Maria Liriano on 06-21-2024 Lymphocytes (Bld) [#/Vol] 2.27 10*3/uL 0.83-4.51 [facility] Lymphocytes/100 WBC Auto (Un sp spec)Ordered By: Maria Liriano on 06-21-2024 Lymphocytes/100 WBC (Bld) 33.0 % 19-41 [facility] MCV (mean corpuscular volume ) determinationOrdered By: Maria Liriano on 06-21-2024 MCV (RBC) [Entitic vol] 97.7 fL 81-99 [facility] Mean corpuscular hemoglobin (MCH) determinationOrdered By: Maria Liriano on 06-21-2024 MCH (RBC) [Entitic mass] 32.2 pg High 27.0-32.0 [facility] Mean corpuscular hemoglobin concentration (MCHC) determinationOrdered By: Maria Liriano on 06-21-2024 MCHC (RBC) [Mass/Vol] 32.9 g/dL 32-36 [facility] Mean platelet volume determi nationOrdered By: Maria Liriano on 06-21-2024 Platelet mean volume (Bld) [Entitic vol] 10.4 fL 6.2-12.0 [facility] Monocyte percentageOrdered B y: Maria Liriano on 06-21-2024 Monocytes/100 WBC (Bld) 9.8 % 0-10 [facility] Neutrophil percentageOrdered By: Maria Liriano on 06-21-2024 Neutrophils/100 WBC (Bld) 54.9 % 47-70 [facility] Nucleated red blood cell per centageOrdered By: Maria Liriano on 06-21-2024 Nucleated RBC/100 WBC (Bld) [Ratio] 0 % 0-5 [facility] Platelet countOrdered By: Sheng Liriano on 06-21-2024 Platelets (Bld) [#/Vol] 248 10*3/uL 150-450 [facility] Potassium measurementOrdered By: Maria Liriano on 06-21-2024 Potassium [Moles/Vol] 4.1 mmol/L 3.5-5.1 [facility] RBC Auto (Bld) [#/Vol]Ordere d By: Maria Liriano on 06-21-2024 RBC (Bld) [#/Vol] 3.95 10*6/uL Low 4.2-5.4 [facility] Serum anion gap measurementO rdered By: Maria Liriano on 06-21-2024 Anion gap [Moles/Vol] 8 mmol/L 5-15 [facility] Serum globulin measurementOr dered By: Maria Liriano on 06-21-2024 Globulin (S) [Mass/Vol] 3.9 g/dL 2.2-4.2 [facility] Serum or plasma alanine jordan otransferase (ALT) measurementOrdered By: Maria Liriano on 06-21-2024 ALT [Catalytic activity/Vol] 34 U/L 13-56 [facility] Serum or plasma albumin chey urement (mass/volume)Ordered By: Maria Liriano on 06-21-2024 Albumin [Mass/Vol] 3.6 g/dL 3.2-5.0 [facility] Serum or plasma alkaline yony sphatase measurementOrdered By: Maria Liriano on 06-21-2024 ALP [Catalytic activity/Vol] 83 U/L 45-117 [facility] Serum or plasma calcium chey urement (mass/volume)Ordered By: Maria Liriano on 06-21-2024 Calcium [Mass/Vol] 8.7 mg/dL 8.5-10.1 [facility] Serum or plasma creatinine m easurement (mass/volume)Ordered By: Maria Liriano on 06-21-2024 Creatinine [Mass/Vol] 0.86 mg/dL 0.55-1.02 [facility] Comment on above: The validity of the calculated GFR & GFRAA in patients over 70 years has not been determined. Clinical correlation is essential. Serum or plasma urea nitroge n measurement (mass/volume)Ordered By: Maria Liriano on 06-21-2024 Urea nitrogen [Mass/Vol] 10 mg/dL 7-18 [facility] Sodium levelOrdered By: Elana Liriano on 06-21-2024 Sodium [Moles/Vol] 138 mmol/L 136-145 [facility] Total proteinOrdered By: [place] Liriano on 06-21-2024 Protein [Mass/Vol] 7.5 g/dL 6.4-8.2 [facility] White blood cell (WBC) count Ordered By: Maria Liriano on 06-21-2024 WBC (Bld) [#/Vol] 6.9 10*3/uL 4.4-11.0 [facility] CBC W/Diff, Automatedon 03-10 Absolute Lymph 2.23 X10 3/uL Normal 0.83-4.51 [facility] Comment on above: Performed By: #### L 100.0100, L500.4050 #### [facility] [address] [place], [address] Absolute Neut 5.2 X10 3/uL Normal 2.0-7.7 [facility] Comment on above: Performed By: #### L 100.0100, L500.4050 #### [facility] [address] [place], [address] Basophils/100 WBC (Bld) 0.7 % Normal 0-1 [facility] Comment on above: Performed By: #### L 100.0100, L500.4050 #### [facility] [address] [place], [address] Eosinophils/100 WBC (Bld) 1.7 % Normal 0-5 [facility] Comment on above: Performed By: #### L 100.0100, L500.4050 #### [facility] [address] [place], [address] Erythrocyte distribution width (RBC) [Ratio] 12.7 % Normal 11.6-14.6 [facility] Comment on above: Performed By: #### L 100.0100, L500.4050 #### [facility] [address] [place], [address] Hematocrit (Bld) [Volume fraction] 41.7 % Normal 37-47 [facility] Comment on above: Performed By: #### L 100.0100, L500.4050 #### [facility] [address] [place], [address] Hemoglobin (Bld) [Mass/Vol] 13.5 g/dL Normal 12.0-15.0 [facility] Comment on above: Performed By: #### L 100.0100, L500.4050 #### [facility] [address] [place], [address] IG% 0.200 Normal 0.0-0.9 [facility] Comment on above: Result Comment: IG% - Immature Granulocytes (promyelocytes, myelocytes and metamyelocytes) > 1% indicates that a LEFT SHIFT is Present. Performed By: #### L 100.0100, L500.4050 #### [facility] [address] [place], [address] Lymphocytes/100 WBC (Bld) 27.1 % Normal 19-41 [facility] Comment on above: Performed By: #### L 100.0100, L500.4050 #### [facility] [address] [place], [address] MCH (RBC) [Entitic mass] 31.9 pg Normal 27.0-32.0 [facility] Comment on above: Performed By: #### L 100.0100, L500.4050 #### [facility] [address] [place], [address] MCHC (RBC) [Mass/Vol] 32.4 g/dL Normal 32-36 [facility] Comment on above: Performed By: #### L 100.0100, L500.4050 #### [facility] [address] [place], [address] MCV (RBC) [Entitic vol] 98.6 fL Normal 81-99 [facility] Comment on above: Performed By: #### L 100.0100, L500.4050 #### [facility] [address] [place], [address] Monocytes/100 WBC (Bld) 7.4 % Normal 0-10 [facility] Comment on above: Performed By: #### L 100.0100, L500.4050 #### [facility] [address] [place], [address] Neutrophils/100 WBC (Bld) 62.9 % Normal 47-70 [facility] Comment on above: Performed By: #### L 100.0100, L500.4050 #### [facility] [address] [place], [address] Nucleated RBC (Bld) [#/Vol] 0 10*3/uL Normal 0-5 [facility] Comment on above: Performed By: #### L 100.0100, L500.4050 #### [facility] [address] [place], [address] Platelet mean volume (Bld) [Entitic vol] 10.2 fL Normal 6.2-12.0 [facility] Comment on above: Performed By: #### L 100.0100, L500.4050 #### [facility] [address] [place], [address] Platelets (Bld) [#/Vol] 248 10*3/uL Normal 150-450 [facility] Comment on above: Performed By: #### L 100.0100, L500.4050 #### [facility] [address] [place], [address] RBC (Bld) [#/Vol] 4.23 10*6/uL Normal 4.2-5.4 [facility] Comment on above: Performed By: #### L 100.0100, L500.4050 #### [facility] [address] [place], [address] RDW SD 45.6 fl High 35.1-43.9 [facility] Comment on above: Performed By: #### L 100.0100, L500.4050 #### [facility] [address] [place], [address] WBC (Bld) [#/Vol] 8.2 10*3/uL Normal 4.4-11.0 [facility] Comment on above: Performed By: #### L 100.0100, L500.4050 #### [facility] [address] [place], [address] Comprehensive Metabolic Prof ilon 03-21-2024 Albumin [Mass/Vol] 4.0 g/dL Normal 3.2-5.0 [facility] Comment on above: Performed By: #### L 100.0100, L500.4050 #### [facility] [address] [place], [address] Albumin/Globulin [Mass ratio] 1.1 {ratio} Normal 0.9-2.4 [facility] Comment on above: Performed By: #### L 100.0100, L500.4050 #### [facility] [address] [place], [address] ALK P 78 U/L Normal 45-117 [facility] Comment on above: Performed By: #### L 100.0100, L500.4050 #### [facility] [address] [place], [address] ALT [Catalytic activity/Vol] 38 U/L Normal 13-56 [facility] Comment on above: Performed By: #### L 100.0100, L500.4050 #### [facility] [address] [place], [address] AST [Catalytic activity/Vol] 19 U/L Normal 15-37 [facility] Comment on above: Performed By: #### L 100.0100, L500.4050 #### [facility] [address] [place], [address] Bilirubin [Mass/Vol] 0.40 mg/dL Normal 0.20-1.00 [facility] Comment on above: Result Comment: For patients on eltrombopag therapy, use of Dimension [place] TBIL is not recommended. Performed By: #### L 100.0100, L500.4050 #### [facility] [address] [place], [address] BUN/CRE 14.4 RATIO Normal 10-20 [facility] Comment on above: Performed By: #### L 100.0100, L500.4050 #### [facility] [address] [place], [address] CA,Total 9.1 mg/dL Normal 8.5-10.1 [facility] Comment on above: Performed By: #### L 100.0100, L500.4050 #### [facility] [address] [place], [address] Chloride [Moles/Vol] 104 mmol/L Normal 98-107 [facility] Comment on above: Performed By: #### L 100.0100, L500.4050 #### [facility] [address] [place], [address] CO2 [Moles/Vol] 26.0 mmol/L Normal 21.0-32.0 [facility] Comment on above: Performed By: #### L 100.0100, L500.4050 #### [facility] [address] [place], [address] Creatinine [Mass/Vol] 0.90 mg/dL Normal 0.55-1.02 [facility] Comment on above: Result Comment: The validity of the calculated GFR GFRAA in patients over 70 years has not been determined. Clinical correlation is essential. Performed By: #### L 100.0100, L500.4050 #### [facility] [address] [place], [address] EST GFR - AA 87 mL/min Normal >60 [facility] Comment on above: Result Comment: Afri can [place] GFR Calc Performed By: #### L 100.0100, L500.4050 #### [facility] [address] [place], [address] GAP 6 Normal 5-15 [facility] Comment on above: Performed By: #### L 100.0100, L500.4050 #### [facility] [address] [place], [address] GFR/1.73 sq M.predicted among non-blacks MDRD (S/P/Bld) [Vol rate/Area] 72 mL/min/{1.73_m2} Normal >60 [facility] Comment on above: Result Comment: Non- GFR Calc Performed By: #### L 100.0100, L500.4050 #### [facility] [address] [place], [address] Globulin (S) [Mass/Vol] 3.7 g/dL Normal 2.2-4.2 [facility] Comment on above: Performed By: #### L 100.0100, L500.4050 #### [facility] [address] [place], [address] Glucose [Mass/Vol] 93 mg/dL Normal 74-106 [facility] Comment on above: Performed By: #### L 100.0100, L500.4050 #### [facility] [address] [place], [address] Potassium [Moles/Vol] 4.1 mmol/L Normal 3.5-5.1 [facility] Comment on above: Performed By: #### L 100.0100, L500.4050 #### [facility] [address] [place], [address] Sodium [Moles/Vol] 136 mmol/L Normal 136-145 [facility] Comment on above: Performed By: #### L 100.0100, L500.4050 #### [facility] [address] [place], [address] T PROT 7.7 g/dL Normal 6.4-8.2 [facility] Comment on above: Performed By: #### L 100.0100, L500.4050 #### [facility] [address] [place], [address] Urea nitrogen [Mass/Vol] 13 mg/dL Normal 7-18 [facility] Comment on above: Performed By: #### L 100.0100, L500.4050 #### [facility] [address] [place], [address] CBC + DIFFon 01-06-2024 Baso # 0.02 x10EE3/UL Normal 0.00 - 0.10 [facility] Comment on above: Performed By: #### 2 [id number] #### [facility],[address] [place] [address] Basophils/100 WBC (Bld) 0.3 % Normal 0.0 - 2.0 [facility] Comment on above: Performed By: #### 2 [id number] #### [facility],[address] [place] [address] CBC + DIFF Normal [facility] Comment on above: Result Comment: CBC- COMPLETE BLOOD COUNT Performed By: #### 2 [id number] #### [facility],[address] [place] [address] EO # 0.12 x10EE3/UL Normal 0.00 - 0.50 [facility] Comment on above: Performed By: #### 2 [id number] #### [facility],[address] [place] [address] Eosinophils/100 WBC (Bld) 1.8 % Normal 0.0 - 7.0 [facility] Comment on above: Performed By: #### 2 65310 #### [facility],[address] [place] [address] Erythrocyte distribution width (RBC) [Ratio] 13.2 % Normal 12.0 - 15.6 [facility] Comment on above: Performed By: #### 2 [id number] #### [facility],[address] [place] [address] Hematocrit (Bld) [Volume fraction] 39.9 % Normal 34.0 - 46.0 [facility] Comment on above: Performed By: #### 2 [id number] #### [facility],[address] [place] [address] Hemoglobin (Bld) [Mass/Vol] 13.4 g/dL Normal 12.0 - 16.0 [facility] Comment on above: Performed By: #### 2 [id number] #### [facility],[address] [place] [address] 77998 Lymph # 2.00 x10EE3/UL Normal 0.80 - 2.80 [facility] Comment on above: Performed By: #### 2 44320 #### [facility],[address] [place] [address] 21863 Lymphocytes/100 WBC (Bld) 29.8 % Normal 20.0 - 45.0 [facility] Comment on above: Performed By: #### 2 85691 #### [facility],[address] [place] [address] 54886 MANUAL DIFF N/A Normal [facility] Comment on above: Performed By: #### 2 14448 #### [facility],[address] [place], [place] [id number] MCH (RBC) [Entitic mass] 32 pg Normal 27 - 33 [facility] Comment on above: Performed By: #### 2 15567 #### [facility],[address] [place] [address] 75224 MCHC 34 X10 3 Normal 32 - 36 [facility] Comment on above: Performed By: #### 2 43190 #### [facility],[address] [place] [address] 18441 MCV (RBC) [Entitic vol] 96 fL Normal 80 - 99 [facility] Comment on above: Performed By: #### 2 40996 #### [facility],[address] [place] [address] 68414 [place] # 0.52 x10EE3/UL Normal 0.20 - 1.00 [facility] Comment on above: Performed By: #### 2 72129 #### [facility],[address] [place] [address] 71077 MONOS % 7.8 % Normal 0.0 - 10.0 [facility] Comment on above: Performed By: #### 2 06701 #### [facility],[address] [place] [address] 31467 Morphology Deonte (Bld) [Interp] N/A Normal [facility] Comment on above: Performed By: #### 2 01270 #### [facility],[address] [place] [address] 97753 Neut # 4.04 x10EE3/UL Normal 1.50 - 7.10 [facility] Comment on above: Performed By: #### 2 35403 #### [address] [address] Neutrophils/100 WBC (Bld) 60.3 % Normal 46.0 - 76.0 [facility] Comment on above: Performed By: #### 2 34215 #### [facility],[address] [place] [address] 38419 PLATELET 267 x10EE3/UL Normal 150 - 450 [facility] Comment on above: Performed By: #### 2 70772 #### [address] [address] Platelet mean volume (Bld) [Entitic vol] 7.3 fL Normal 6.6 - 10.5 [facility] Comment on above: Result Comment: AUTO MATED DIFFERENTIAL Performed By: #### 2 06891 #### [facility],[address] [place] [address] 24347 RBC 4.18 x 10EE6/UL Normal 4.10 - 5.30 [facility] Comment on above: Performed By: #### 2 54176 #### [facility],[address] [place] [address] 20147 WBC 6.7 x 10EE3/UL Normal 4.5 - 10.8 [facility] Comment on above: Performed By: #### 2 07811 #### [address],[place] [address] CMP with eGFRon 01-06-2024 AGE 43 years Normal [facility] Comment on above: Performed By: #### 2 87901 #### [facility],[address] [place] [address] 40305 Albumin [Mass/Vol] 3.7 g/dL Normal 3.4 - 5.0 [facility] Comment on above: Performed By: #### 2 89348 #### [facility],[address] [place] [address] 63763 Albumin/Globulin [Mass ratio] 1.0 {ratio} Normal 0.9 - 1.6 [facility] Comment on above: Performed By: #### 2 49343 #### [facility],[address] [place] [address] 71044 ALK PHOS 91 U/L Normal 46 - 116 [facility] Comment on above: Performed By: #### 2 80967 #### [facility],[address] [place] [address] 91723 ALT [Catalytic activity/Vol] 34 U/L Normal 16 - 63 [facility] Comment on above: Performed By: #### 2 92843 #### [facility],[address] [place] [address] 53469 Anion gap [Moles/Vol] 9 mmol/L Low 10 - 20 [facility] Comment on above: Performed By: #### 2 01473 #### [facility],[address] [place] [address] 76237 AST [Catalytic activity/Vol] 20 U/L Normal 13 - 39 [facility] Comment on above: Performed By: #### 2 23452 #### [facility],[address] [place] [address] 83547 B/C RATIO 15 ratio Normal 0 - 30 [facility] Comment on above: Performed By: #### 2 75344 #### [facility],[address] [place] [address] 04826 Bilirubin [Mass/Vol] 0.4 mg/dL Normal 0.2 - 1.0 [facility] Comment on above: Performed By: #### 2 61252 #### [facility],[address] [place] [address] 34594 Calcium [Mass/Vol] 8.7 mg/dL Normal 8.5 - 10.1 [facility] Comment on above: Performed By: #### 2 85803 #### [facility],[address] [place] [address] 48398 Chloride [Moles/Vol] 102 mmol/L Normal 98 - 107 [facility] Comment on above: Performed By: #### 2 57136 #### [facility],[address] [place], [place] [id number] CMP with eGFR Normal [facility] Comment on above: Result Comment: COMP REHENSIVE METABOLIC PANEL Performed By: #### 2 62072 #### [facility],[address] [place] [address] 98825 CO2 [Moles/Vol] 29.9 mmol/L Normal 21.0 - 32.0 [facility] Comment on above: Performed By: #### 2 47856 #### [facility],[address] [place] [address] 16341 Creatinine [Mass/Vol] 0.89 mg/dL Normal 0.55 - 1.02 [facility] Comment on above: Performed By: #### 2 62020 #### [facility],[address] [place] [address] 54811 GFR/1.73 sq M.predicted among non-blacks MDRD (S/P/Bld) [Vol rate/Area] mL/min/{1.73_m2} Normal 60 - 999 [facility] Comment on above: Performed By: #### 2 94846 #### [facility],[address] [place] [address] Result Comment: ACCO RDING TO THE NATIONAL KIDNEY DISEASE EDUCATION PROGRAM(NKDE), A NORMAL eGFR IS A VALUE GREATER THAN OR EQUAL TO 60 ML/MIN/1.73 SQ METERS. CHRONIC KIDNEY DISEASE: <60mL/MIN/1.73 SQ METERS KIDNEY FAILURE: <15mL/MIN/1.73 SQ METERS THIS TEST SHOULD ONLY BE USED FOR PATIENTS 18 YEARS OF AGE AND OLDER. Globulin (S) [Mass/Vol] 3.8 g/dL Normal 1.5 - 3.8 [facility] Comment on above: Performed By: #### 2 96007 #### [facility],[address] [place] [address] 15228 Glucose [Mass/Vol] 94 mg/dL Normal 74 - 106 [facility] Comment on above: Performed By: #### 2 45008 #### [facility],[address] [place] [address] 68011 Potassium [Moles/Vol] 4.0 mmol/L Normal 3.5 - 5.1 [facility] Comment on above: Performed By: #### 2 85211 #### [facility],[address] [place] [address] 99006 Protein [Mass/Vol] 7.5 g/dL Normal 6.4 - 8.2 [facility] Comment on above: Performed By: #### 2 86914 #### [facility],[address] [place] [address] 88234 Sodium [Moles/Vol] 137 mmol/L Normal 136 - 145 [facility] Comment on above: Performed By: #### 2 36374 #### [facility],[address] [place] [address] 14115 Urea nitrogen [Mass/Vol] 13 mg/dL Normal 7 - 18 [facility] Comment on above: Performed By: #### 2 30193 #### [facility],[address] [place] [address] 12577 CBC + DIFFon 12-01-2023 Baso # 0.03 x10EE3/UL Normal 0.00 - 0.10 [facility] Comment on above: Performed By: #### 2 20733 #### [facility],[address] [place] [address] Basophils/100 WBC (Bld) 0.4 % Normal 0.0 - 2.0 [facility] Comment on above: Performed By: #### 2 17714 #### [place] [address] CBC + DIFF Normal [facility] Comment on above: Result Comment: CBC- COMPLETE BLOOD COUNT Performed By: #### 2 81513 #### [place] [address] EO # 0.07 x10EE3/UL Normal 0.00 - 0.50 [facility] Comment on above: Performed By: #### 2 82138 #### [place] [address] Eosinophils/100 WBC (Bld) 0.8 % Normal 0.0 - 7.0 [facility] Comment on above: Performed By: #### 2 59929 #### [place] [address] Erythrocyte distribution width (RBC) [Ratio] 13.4 % Normal 12.0 - 15.6 [facility] Comment on above: Performed By: #### 2 78583 #### [place] [address] Hematocrit (Bld) [Volume fraction] 41.3 % Normal 34.0 - 46.0 [facility] Comment on above: Performed By: #### 2 50716 #### [place] [address] Hemoglobin (Bld) [Mass/Vol] 13.9 g/dL Normal 12.0 - 16.0 [facility] Comment on above: Performed By: #### 2 00411 #### [facility],[address] [place] [address] Lymph # 1.96 x10EE3/UL Normal 0.80 - 2.80 [facility] Comment on above: Performed By: #### 2 29308 #### [facility],[address] [place] [address] Lymphocytes/100 WBC (Bld) 22.9 % Normal 20.0 - 45.0 [facility] Comment on above: Performed By: #### 2 31561 #### [facility],[address] [place] [address] MANUAL DIFF N/A Normal [facility] Comment on above: Performed By: #### 2 63735 #### [facility],[address] [place] [address] MCH (RBC) [Entitic mass] 32 pg Normal 27 - 33 [facility] Comment on above: Performed By: #### 2 94160 #### [facility],[address] [place] [address] MCHC 34 X10 3 Normal 32 - 36 [facility] Comment on above: Performed By: #### 2 71795 #### [facility],[address] [place] [address] MCV (RBC) [Entitic vol] 96 fL Normal 80 - 99 [facility] Comment on above: Performed By: #### 2 69386 #### [facility],[address] [place] [address] [place] # 0.51 x10EE3/UL Normal 0.20 - 1.00 [facility] Comment on above: Performed By: #### 2 35394 #### [place] [address] MONOS % 5.9 % Normal 0.0 - 10.0 [facility] Comment on above: Performed By: #### 2 77800 #### [facility],[address],[place] [address] Morphology Deonte (Bld) [Interp] N/A Normal [facility] Comment on above: Performed By: #### 2 03864 #### [facility],[address] [place] [address] 95422 Neut # 5.97 x10EE3/UL Normal 1.50 - 7.10 [facility] Comment on above: Performed By: #### 2 92703 #### [facility],[address] [place] [address] 12180 Neutrophils/100 WBC (Bld) 70.0 % Normal 46.0 - 76.0 [facility] Comment on above: Performed By: #### 2 79696 #### [facility],[address] [place] [address] 92043 PLATELET 265 x10EE3/UL Normal 150 - 450 [facility] Comment on above: Performed By: #### 2 09808 #### [facility],[address] [place] [address] 21260 Platelet mean volume (Bld) [Entitic vol] 7.8 fL Normal 6.6 - 10.5 [facility] Comment on above: Result Comment: AUTO MATED DIFFERENTIAL Performed By: #### 2 64049 #### [facility],[address] [place] [address] 06873 RBC 4.29 x 10EE6/UL Normal 4.10 - 5.30 [facility] Comment on above: Performed By: #### 2 34760 #### [facility],[address] [place] [address] 52351 WBC 8.5 x 10EE3/UL Normal 4.5 - 10.8 [facility] Comment on above: Performed By: #### 2 53057 #### [facility],[address] [place] [address] 28593 CMP with eGFRon 12-01-2023 AGE 43 years Normal [facility] Comment on above: Performed By: #### 2 33915 #### [facility],[address] [place] [address] 57947 Albumin [Mass/Vol] 3.6 g/dL Normal 3.4 - 5.0 [facility] Comment on above: Performed By: #### 2 27519 #### [facility],[address] [place] [address] 64974 Albumin/Globulin [Mass ratio] 1.0 {ratio} Normal 0.9 - 1.6 [facility] Comment on above: Performed By: #### 2 98086 #### [facility],[address] [place] [address] 51816 ALK PHOS 83 U/L Normal 46 - 116 [facility] Comment on above: Performed By: #### 2 35902 #### [facility],[address] [place] [address] 36896 ALT [Catalytic activity/Vol] 32 U/L Normal 16 - 63 [facility] Comment on above: Performed By: #### 2 27909 #### [facility],[address] [place] [address] 62143 Anion gap [Moles/Vol] 10 mmol/L Normal 10 - 20 [facility] Comment on above: Performed By: #### 2 43915 #### [facility],[address] [place] [address] 34770 AST [Catalytic activity/Vol] 21 U/L Normal 13 - 39 [facility] Comment on above: Performed By: #### 2 69946 #### [facility],[address] [place] [address] 33783 B/C RATIO 12 ratio Normal 0 - 30 [facility] Comment on above: Performed By: #### 2 83638 #### [facility],[address] [place] [address] 91186 Bilirubin [Mass/Vol] 0.4 mg/dL Normal 0.2 - 1.0 [facility] Comment on above: Performed By: #### 2 92748 #### [facility],[address] [place] [address] 39167 Calcium [Mass/Vol] 8.6 mg/dL Normal 8.5 - 10.1 [facility] Comment on above: Performed By: #### 2 36127 #### [facility],[address] [place] [address] 92402 Chloride [Moles/Vol] 102 mmol/L Normal 98 - 107 [facility] Comment on above: Performed By: #### 2 29663 #### [facility],[address] [place] [address] 87755 CMP with eGFR Normal [facility] Comment on above: Result Comment: COMP REHENSIVE METABOLIC PANEL Performed By: #### 2 27592 #### [facility],[address] [place] [address] 20194 CO2 [Moles/Vol] 29.0 mmol/L Normal 21.0 - 32.0 [facility] Comment on above: Performed By: #### 2 57030 #### [facility],[address] [place] [address] 60106 Creatinine [Mass/Vol] 0.90 mg/dL Normal 0.55 - 1.02 [facility] Comment on above: Performed By: #### 2 79463 #### [facility],[address] [place] [address] 95961 GFR/1.73 sq M.predicted among non-blacks MDRD (S/P/Bld) [Vol rate/Area] mL/min/{1.73_m2} Normal 60 - 999 [facility] Comment on above: Performed By: #### 2 90682 #### [facility],[address] [place] [address] 89083 Result Comment: ACCO RDING TO THE NATIONAL KIDNEY DISEASE EDUCATION PROGRAM(NKDE), A NORMAL eGFR IS A VALUE GREATER THAN OR EQUAL TO 60 ML/MIN/1.73 SQ METERS. CHRONIC KIDNEY DISEASE: <60mL/MIN/1.73 SQ METERS KIDNEY FAILURE: <15mL/MIN/1.73 SQ METERS THIS TEST SHOULD ONLY BE USED FOR PATIENTS 18 YEARS OF AGE AND OLDER. Globulin (S) [Mass/Vol] 3.7 g/dL Normal 1.5 - 3.8 [facility] Comment on above: Performed By: #### 2 04631 #### [facility],[address] [place] [address] 00462 Glucose [Mass/Vol] 94 mg/dL Normal 74 - 106 [facility] Comment on above: Performed By: #### 2 51244 #### [facility],[address] [place] [address] 29692 Potassium [Moles/Vol] 4.1 mmol/L Normal 3.5 - 5.1 [facility] Comment on above: Performed By: #### 2 88096 #### [facility],[address] [place] [address] 30434 Protein [Mass/Vol] 7.3 g/dL Normal 6.4 - 8.2 [facility] Comment on above: Performed By: #### 2 91023 #### [facility],[address] [place] [address] 43354 Sodium [Moles/Vol] 137 mmol/L Normal 136 - 145 [facility] Comment on above: Performed By: #### 2 88489 #### [facility],[address] [place] [address] 19359 Urea nitrogen [Mass/Vol] 11 mg/dL Normal 7 - 18 [facility] Comment on above: Performed By: #### 2 43601 #### [facility],[address] [place] [address] 47307 LIPID PROFILEon 12-01-2023 Cholesterol [Mass/Vol] 166 mg/dL Normal 0 - 240 [facility] Comment on above: Performed By: #### 2 55134 #### [facility],[address] [place] [address] 23224 Cholesterol in HDL [Mass/Vol] 75 mg/dL High 40 - 60 [facility] Comment on above: Performed By: #### 2 87999 #### [facility],[address] [place] [address] 56243 Cholesterol in LDL [Mass/Vol] 77 mg/dL Normal 0 - 129 [facility] Comment on above: Performed By: #### 2 96236 #### [facility],[address] [place] [address] 30954 Cholesterol.total/Choles terol in HDL [Mass ratio] 2.2 {ratio} Normal 0.0 - 5.0 [facility] Comment on above: Performed By: #### 2 22973 #### [facility],[address] [place] [address] 40660 Lipid 1996 panel Normal [facility] Comment on above: Result Comment: LIPI D PROFILE Performed By: #### 2 80948 #### [facility],[address] [place] [address] 85688 Triglyceride [Mass/Vol] 72 mg/dL Normal 0 - 150 [facility] Comment on above: Performed By: #### 2 95227 #### [facility],[address] [place] [address] 54702 T4-FREE (FREE THYROXINE)on 0 12-01-2023 Free T4 [Mass/Vol] 0.72 ng/dL Low 0.76 - 1.46 [facility] Comment on above: Result Comment: P otential of falsely elevated results when biotin concentrations are > 10 ng/mL. Performed By: #### 2 19063 #### [facility],[address] [place] [address] 33059 TSHon 12-01-2023 TSH Qn 0.98 m[IU]/L Normal 0.35 - 3.74 [facility] Comment on above: Performed By: #### 2 67215 #### [facility],[address] [place] [address] 25917 CBC W/Diff, Automatedon 06-0 4-2024 Absolute Lymph 2.34 X10 3/uL Normal 0.83-4.51 [facility] Comment on above: Performed By: #### L 500.4050, L100.0100 #### [facility] [address] [place], [address] Absolute Neut 3.5 X10 3/uL Normal 2.0-7.7 [facility] Comment on above: Performed By: #### L 500.4050, L100.0100 #### [facility] [address] [place], [address] Basophils/100 WBC (Bld) 0.6 % Normal 0-1 [facility] Comment on above: Performed By: #### L 500.4050, L100.0100 #### [facility] [address] [place], [address] Eosinophils/100 WBC (Bld) 1.2 % Normal 0-5 [facility] Comment on above: Performed By: #### L 500.4050, L100.0100 #### [facility] [address] [place], [address] Erythrocyte distribution width (RBC) [Ratio] 13.2 % Normal 11.6-14.6 [facility] Comment on above: Performed By: #### L 500.4050, L100.0100 #### [facility] [address] [place], [address] Hematocrit (Bld) [Volume fraction] 39.6 % Normal 37-47 [facility] Comment on above: Performed By: #### L 500.4050, L100.0100 #### [facility] [address] [place], [address] Hemoglobin (Bld) [Mass/Vol] 12.8 g/dL Normal 12.0-15.0 [facility] Comment on above: Performed By: #### L 500.4050, L100.0100 #### [facility] [address] [place], [address] IG% 0.200 Normal 0.0-0.9 [facility] Comment on above: Result Comment: IG% - Immature Granulocytes (promyelocytes, myelocytes and metamyelocytes) > 1% indicates that a LEFT SHIFT is Present. Performed By: #### L 500.4050, L100.0100 #### [facility] [address] [place], [address] Lymphocytes/100 WBC (Bld) 35.8 % Normal 19-41 [facility] Comment on above: Performed By: #### L 500.4050, L100.0100 #### [facility] [address] [place], [address] MCH (RBC) [Entitic mass] 30.9 pg Normal 27.0-32.0 [facility] Comment on above: Performed By: #### L 500.4050, L100.0100 #### [facility] [address] [place], [address] MCHC (RBC) [Mass/Vol] 32.3 g/dL Normal 32-36 [facility] Comment on above: Performed By: #### L 500.4050, L100.0100 #### [facility] [address] [place], [address] MCV (RBC) [Entitic vol] 95.7 fL Normal 81-99 [facility] Comment on above: Performed By: #### L 500.4050, L100.0100 #### [facility] [address] [place], [address] Monocytes/100 WBC (Bld) 8.7 % Normal 0-10 [facility] Comment on above: Performed By: #### L 500.4050, L100.0100 #### [facility] [address] [place], [address] Neutrophils/100 WBC (Bld) 53.5 % Normal 47-70 [facility] Comment on above: Performed By: #### L 500.4050, L100.0100 #### [facility] [address] [place], [address] Nucleated RBC (Bld) [#/Vol] 0 10*3/uL Normal 0-5 [facility] Comment on above: Performed By: #### L 500.4050, L100.0100 #### [facility] [address] [place], [address] Platelet mean volume (Bld) [Entitic vol] 10.2 fL Normal 6.2-12.0 [facility] Comment on above: Performed By: #### L 500.4050, L100.0100 #### [facility] [address] [place], [address] Platelets (Bld) [#/Vol] 269 10*3/uL Normal 150-450 [facility] Comment on above: Performed By: #### L 500.4050, L100.0100 #### [facility] [address] [place], [address] RBC (Bld) [#/Vol] 4.14 10*6/uL Low 4.2-5.4 [facility] Comment on above: Performed By: #### L 500.4050, L100.0100 #### [facility] [address] [place], [address] RDW SD 46.5 fl High 35.1-43.9 [facility] Comment on above: Performed By: #### L 500.4050, L100.0100 #### [facility] [address] [place], [address] WBC (Bld) [#/Vol] 6.5 10*3/uL Normal 4.4-11.0 [facility] Comment on above: Performed By: #### L 500.4050, L100.0100 #### [facility] [address] [place], [address] Comprehensive Metabolic Prof ilon 10-12-2023 Albumin [Mass/Vol] 3.7 g/dL Normal 3.2-5.0 [facility] Comment on above: Performed By: #### L 500.4050, L100.0100 #### [facility] [address] [place], [address] Albumin/Globulin [Mass ratio] 1.0 {ratio} Normal 0.9-2.4 [facility] Comment on above: Performed By: #### L 500.4050, L100.0100 #### [facility] [address] [place], [address] ALK P 86 U/L Normal 45-117 [facility] Comment on above: Performed By: #### L 500.4050, L100.0100 #### [facility] [address] [place], [address] ALT [Catalytic activity/Vol] 38 U/L Normal 13-56 [facility] Comment on above: Performed By: #### L 500.4050, L100.0100 #### [facility] [address] [place], [address] AST [Catalytic activity/Vol] 23 U/L Normal 15-37 [facility] Comment on above: Performed By: #### L 500.4050, L100.0100 #### [facility] [address] [place], [address] Bilirubin [Mass/Vol] 0.40 mg/dL Normal 0.20-1.00 [facility] Comment on above: Result Comment: For patients on eltrombopag therapy, use of Dimension [place] TBIL is not recommended. Performed By: #### L 500.4050, L100.0100 #### [facility] [address] [place], [address] BUN/CRE 12.3 RATIO Normal 10-20 [facility] Comment on above: Performed By: #### L 500.4050, L100.0100 #### [facility] [address] [place], [address] CA,Total 8.9 mg/dL Normal 8.5-10.1 [facility] Comment on above: Performed By: #### L 500.4050, L100.0100 #### [facility] [address] [place], [address] Chloride [Moles/Vol] 108 mmol/L High 98-107 [facility] Comment on above: Performed By: #### L 500.4050, L100.0100 #### [facility] [address] [place], [address] CO2 [Moles/Vol] 23.0 mmol/L Normal 21.0-32.0 [facility] Comment on above: Performed By: #### L 500.4050, L100.0100 #### [facility] [address] [place], [address] Creatinine [Mass/Vol] 0.90 mg/dL Normal 0.55-1.02 [facility] Comment on above: Result Comment: The validity of the calculated GFR GFRAA in patients over 70 years has not been determined. Clinical correlation is essential. Performed By: #### L 500.4050, L100.0100 #### [facility] [address] [place], [address] EST GFR - AA 88 mL/min Normal >60 [facility] Comment on above: Result Comment: Afri can Ug[place] GFR Calc Performed By: #### L 500.4050, L100.0100 #### [facility] [address] [place], [address] GAP 7 Normal 5-15 [facility] Comment on above: Performed By: #### L 500.4050, L100.0100 #### [facility] [address] [place], [address] GFR/1.73 sq M.predicted among non-blacks MDRD (S/P/Bld) [Vol rate/Area] 73 mL/min/{1.73_m2} Normal >60 [facility] Comment on above: Result Comment: Non- GFR Calc Performed By: #### L 500.4050, L100.0100 #### [facility] [address] [place], [address] Globulin (S) [Mass/Vol] 3.8 g/dL Normal 2.2-4.2 [facility] Comment on above: Performed By: #### L 500.4050, L100.0100 #### [facility] [address] [place], [address] Glucose [Mass/Vol] 100 mg/dL Normal 74-106 [facility] Comment on above: Result Comment: Fast ing Glucose result from 100 to 125 mg/dL suggests IMPAIRED HOMEOSTASIS per A.D.A. criteria. Performed By: #### L 500.4050, L100.0100 #### [facility] [address] [place], [address] Potassium [Moles/Vol] 4.0 mmol/L Normal 3.5-5.1 [facility] Comment on above: Performed By: #### L 500.4050, L100.0100 #### [facility] [address] [place], [address] Sodium [Moles/Vol] 138 mmol/L Normal 136-145 [facility] Comment on above: Performed By: #### L 500.4050, L100.0100 #### [facility] [address] [place], [address] T PROT 7.5 g/dL Normal 6.4-8.2 [facility] Comment on above: Performed By: #### L 500.4050, L100.0100 #### [facility] [address] [place], [address] Urea nitrogen [Mass/Vol] 11 mg/dL Normal 7-18 [facility] Comment on above: Performed By: #### L 500.4050, L100.0100 #### [facility] [address] [place], [address] CBC + DIFFon 07-15-2023 Baso # 0.03 x10EE3/UL Normal 0.00 - 0.10 [facility] Comment on above: Performed By: #### 2 71321 #### [facility],[address] [place] [address]67[address] Basophils/100 WBC (Bld) 0.4 % Normal 0.0 - 2.0 [facility] Comment on above: Performed By: #### 2 47831 #### [facility],[address] [place] [address] 79081 CBC + DIFF Normal [facility] Comment on above: Result Comment: CBC- COMPLETE BLOOD COUNT Performed By: #### 2 31789 #### [facility],[address] [place] [address] EO # 0.06 x10EE3/UL Normal 0.00 - 0.50 [facility] Comment on above: Performed By: #### 2 33181 #### [facility],[address] [place] [address] 20588 Eosinophils/100 WBC (Bld) 0.7 % Normal 0.0 - 7.0 [facility] Comment on above: Performed By: #### 2 40524 #### [facility],[address] [place] [address] 67580 Erythrocyte distribution width (RBC) [Ratio] 13.2 % Normal 12.0 - 15.6 [facility] Comment on above: Performed By: #### 2 02242 #### [facility],[address] [place] [address] Hematocrit (Bld) [Volume fraction] 39.8 % Normal 34.0 - 46.0 [facility] Comment on above: Performed By: #### 2 73477 #### [facility],[address] [place] [address] Hemoglobin (Bld) [Mass/Vol] 13.3 g/dL Normal 12.0 - 16.0 [facility] Comment on above: Performed By: #### 2 67979 #### [facility],[address] [place] [address] Lymph # 2.60 x10EE3/UL Normal 0.80 - 2.80 [facility] Comment on above: Performed By: #### 2 87757 #### [facility],[address] [place] [address] Lymphocytes/100 WBC (Bld) 31.6 % Normal 20.0 - 45.0 [facility] Comment on above: Performed By: #### 2 51777 #### [facility],[address] [place] [address] MANUAL DIFF N/A Normal [facility] Comment on above: Performed By: #### 2 87131 #### [facility],[address] [place], [place] [id number] MCH (RBC) [Entitic mass] 31 pg Normal 27 - 33 [facility] Comment on above: Performed By: #### 2 98213 #### [facility],[address] [place], [place] [id number] MCHC 34 X10 3 Normal 32 - 36 [facility] Comment on above: Performed By: #### 2 91383 #### [facility],[address] [place], [place] [id number] MCV (RBC) [Entitic vol] 92 fL Normal 80 - 99 [facility] Comment on above: Performed By: #### 2 07332 #### [facility],[address] [place] [address] [place] # 0.72 x10EE3/UL Normal 0.20 - 1.00 [facility] Comment on above: Performed By: #### 2 20470 #### [facility],[address] [place] [address] MONOS % 8.8 % Normal 0.0 - 10.0 [facility] Comment on above: Performed By: #### 2 02002 #### [facility],[address] [place] [address] Morphology [place] (Bld) [Interp] N/A Normal [facility] Comment on above: Performed By: #### 2 04041 #### [facility],[address] [place] [address] Neut # 4.81 x10EE3/UL Normal 1.50 - 7.10 [facility] Comment on above: Performed By: #### 2 59225 #### [place] [address] Neutrophils/100 WBC (Bld) 58.6 % Normal 46.0 - 76.0 [facility] Comment on above: Performed By: #### 2 32550 #### [facility],[address] [place] [address] PLATELET 287 x10EE3/UL Normal 150 - 450 [facility] Comment on above: Performed By: #### 2 45193 #### [place] [address] Platelet mean volume (Bld) [Entitic vol] 8.0 fL Normal 6.6 - 10.5 [facility] Comment on above: Result Comment: AUTO MATED DIFFERENTIAL Performed By: #### 2 96236 #### [place] [address],[place] [address] RBC 4.31 x 10EE6/UL Normal 4.10 - 5.30 [facility] Comment on above: Performed By: #### 2 99080 #### [facility],[address] [place] [address] WBC 8.2 x 10EE3/UL Normal 4.5 - 10.8 [facility] Comment on above: Performed By: #### 2 43554 #### [facility],[address] [place] [address]4986 CMP with eGFRon 07-15-2023 AGE 43 years Normal [facility] Comment on above: Performed By: #### 2 98761 #### [facility],[address] [place] [address]820 Albumin [Mass/Vol] 3.5 g/dL Normal 3.4 - 5.0 [facility] Comment on above: Performed By: #### 2 41140 #### [facility],[address] [place] [address] 73777 Albumin/Globulin [Mass ratio] 0.9 {ratio} Normal 0.9 - 1.6 [facility] Comment on above: Performed By: #### 2 93488 #### [facility],[address] [place] [address] 09909 ALK PHOS 76 U/L Normal 46 - 116 [facility] Comment on above: Performed By: #### 2 68365 #### [facility],[address] [place] [address] 09697 ALT [Catalytic activity/Vol] 39 U/L Normal 16 - 63 [facility] Comment on above: Performed By: #### 2 23890 #### [facility],[address] [place] [address] 48133 Anion gap [Moles/Vol] 16 mmol/L Normal 10 - 20 [facility] Comment on above: Performed By: #### 2 51916 #### [facility],[address] [place] [address] 07405 AST [Catalytic activity/Vol] 24 U/L Normal 13 - 39 [facility] Comment on above: Performed By: #### 2 69814 #### [facility],[address] [place] [address] 31154 B/C RATIO 17 ratio Normal 0 - 30 [facility] Comment on above: Performed By: #### 2 02767 #### [facility],[address] [place] [address] 92873 Bilirubin [Mass/Vol] 0.4 mg/dL Normal 0.2 - 1.0 [facility] Comment on above: Performed By: #### 2 74141 #### [facility],[address] [place] [address] 98[address] Calcium [Mass/Vol] 8.7 mg/dL Normal 8.5 - 10.1 [facility] Comment on above: Performed By: #### 2 39974 #### [facility],[address] [place] [address] 67060 Chloride [Moles/Vol] 104 mmol/L Normal 98 - 107 [facility] Comment on above: Performed By: #### 2 48383 #### [facility],[address] [place] [address] 54336 CMP with eGFR Normal [facility] Comment on above: Result Comment: COMP REHENSIVE METABOLIC PANEL Performed By: #### 2 81888 #### [facility],[address] [place] [address] 80499 CO2 [Moles/Vol] 25.2 mmol/L Normal 21.0 - 32.0 [facility] Comment on above: Performed By: #### 2 11416 #### [facility],[address] [place] [address] 38441 Creatinine [Mass/Vol] 0.90 mg/dL Normal 0.55 - 1.02 [facility] Comment on above: Performed By: #### 2 78839 #### [facility],[address] [place] [address] 66722 GFR/1.73 sq M.predicted among non-blacks MDRD (S/P/Bld) [Vol rate/Area] mL/min/{1.73_m2} Normal 60 - 999 [facility] Comment on above: Performed By: #### 2 42302 #### [facility],[address] [place] [address] 71314 Result Comment: ACCO RDING TO THE NATIONAL KIDNEY DISEASE EDUCATION PROGRAM(NKDE), A NORMAL eGFR IS A VALUE GREATER THAN OR EQUAL TO 60 ML/MIN/1.73 SQ METERS. CHRONIC KIDNEY DISEASE: <60mL/MIN/1.73 SQ METERS KIDNEY FAILURE: <15mL/MIN/1.73 SQ METERS THIS TEST SHOULD ONLY BE USED FOR PATIENTS 18 YEARS OF AGE AND OLDER. Globulin (S) [Mass/Vol] 3.9 g/dL High 1.5 - 3.8 [facility] Comment on above: Performed By: #### 2 30637 #### [facility],[address] [place] [address] 61878 Glucose [Mass/Vol] 106 mg/dL Normal 74 - 106 [facility] Comment on above: Performed By: #### 2 41068 #### [facility],[address] [place] [address] 14245 Potassium [Moles/Vol] 3.8 mmol/L Normal 3.5 - 5.1 [facility] Comment on above: Performed By: #### 2 60703 #### [facility],[address] [place] [address] 81519 Protein [Mass/Vol] 7.4 g/dL Normal 6.4 - 8.2 [facility] Comment on above: Performed By: #### 2 07734 #### [facility],[address] [place] [address] 79858 Sodium [Moles/Vol] 141 mmol/L Normal 136 - 145 [facility] Comment on above: Performed By: #### 2 20330 #### [facility],[address] [place] [address] 31758 Urea nitrogen [Mass/Vol] 15 mg/dL Normal 7 - 18 [facility] Comment on above: Performed By: #### 2 07764 #### [facility],[address] [place] [address] 13788 LABORATORYOrdered By: SYSTEM SYSTEM on 01-19-2023 Albumin BCP dye [Mass/Vol] 3.8 G/dL Invalid Interpretation Code 3.2 - 4.8 G/dL ADM SS Albumin/Globulin [Mass ratio] 1.3 {ratio} Invalid Interpretation Code 0.9 - 1.6 ratio AH ADM SS ALP [Catalytic activity/Vol] 61 U/L Invalid Interpretation Code 38 - 126 U/L AH ADM SS ALT No additional P-5'-P [Catalytic activity/Vol] 38 U/L Invalid Interpretation Code 10 - 49 U/L AH ADM SS AST [Catalytic activity/Vol] 20 U/L Invalid Interpretation Code 8 - 34 U/L AH ADM SS Basophils (Bld) [#/Vol] 0.0 103/mcL Invalid Interpretation Code 0.0 - 0.3 10^3/mcL AH Workflow SS Basophils/100 WBC (Bld) 0.6 % Invalid Interpretation Code 0.0 - 2.5 % Workflow SS Bilirubin [Mass/Vol] 0.30 mg/dL Invalid Interpretation Code 0.20 - 1.20 mg/dL AH ADM SS Comment on above: Interpretive Data: U se of this assay is not recommended for patients undergoing treatment with eltrombopag due to the potential for falsely elevated results. Calcium [Mass/Vol] 9.1 mg/dL Invalid Interpretation Code 8.7 - 10.4 mg/dL AH ADM SS Chloride [Moles/Vol] 108 mmol/L Invalid Interpretation Code 98 - 110 mEq/L AH ADM SS CO2 [Moles/Vol] 25 mmol/L Invalid Interpretation Code 22 - 32 mEq/L AH ADM SS Creatinine [Mass/Vol] 0.76 mg/dL Invalid Interpretation Code 0.50 - 1.20 mg/dL AH ADM SS Electrolyte Balance 7.0 mEq/L Invalid Interpretation Code 4.0 - 15.0 mEq/L AH ADM SS Eosinophils (Bld) [#/Vol] 0.1 103/mcL Invalid Interpretation Code 0.0 - 0.7 10^3/mcL Workflow SS Eosinophils/100 WBC (Bld) 1.1 % Invalid Interpretation Code 0.0 - 6.0 % Workflow SS Erythrocyte distribution width (RBC) [Ratio] 13.4 % Invalid Interpretation Code 11.5 - 15.5 % Workflow SS GFR/1.73 sq M.predicted among blacks MDRD (S/P/Bld) [Vol rate/Area] ml/min/1.73sqm Invalid Interpretation Code Chemistry S Comment on above: Interpretive Data: GFR Population mean for , Non- Americans Ages 20-29 = 116 mL/min/1.73 sq.m. Ages 30-39 = 107 mL/min/1.73 sq.m. Ages 40-49 = 99 mL/min/1.73 sq.m. Ages 50-59 = 93 mL/min/1.73 sq.m. Ages 60-69 = 85 mL/min/1.73 sq.m. Ages 70+ = 75 mL/min/1.73 sq.m. Chronic Kidney Disease: Less than 60 mL/min/1.73 square meters End Stage Renal Disease: Less than 15 mL/min/1.73 square meters GFR/1.73 sq M.predicted among non-blacks MDRD (S/P/Bld) [Vol rate/Area] ml/min/1.73sqm Invalid Interpretation Code C-sam Chemistry S Comment on above: Interpretive Data: GFR Population mean for , Non- Americans Ages 20-29 = 116 mL/min/1.73 sq.m. Ages 30-39 = 107 mL/min/1.73 sq.m. Ages 40-49 = 99 mL/min/1.73 sq.m. Ages 50-59 = 93 mL/min/1.73 sq.m. Ages 60-69 = 85 mL/min/1.73 sq.m. Ages 70+ = 75 mL/min/1.73 sq.m. Chronic Kidney Disease: Less than 60 mL/min/1.73 square meters End Stage Renal Disease: Less than 15 mL/min/1.73 square meters Globulin 2.9 G/dL Invalid Interpretation Code 1.5 - 3.8 G/dL ADM SS Glucose [Mass/Vol] 91 mg/dL Invalid Interpretation Code 70 - 110 mg/dL ADM SS Hematocrit (Bld) [Volume fraction] 37.8 % Invalid Interpretation Code 34.0 - 46.0 % AH Workflow SS Hemoglobin (Bld) [Mass/Vol] 12.7 G/dL Invalid Interpretation Code 12.0 - 16.0 G/dL AH Workflow SS Lymphocytes (Bld) [#/Vol] 2.2 103/mcL Invalid Interpretation Code 0.9 - 4.3 10^3/mcL AH Workflow SS Lymphocytes/100 WBC (Bld) 28.2 % Invalid Interpretation Code 20.0 - 40.0 % AH Workflow SS MCH (RBC) [Entitic mass] 32.3 pg Invalid Interpretation Code 27.0 - 33.0 pg AH Workflow SS MCHC 33.7 G/dL Invalid Interpretation Code 32.0 - 36.0 G/dL AH Workflow SS MCV (RBC) [Entitic vol] 96.1 fL Invalid Interpretation Code 80.0 - 99.0 fL Workflow SS Monocytes (Bld) [#/Vol] 0.6 103/mcL Invalid Interpretation Code 0.1 - 1.4 10^3/mcL AH Workflow SS Monocytes/100 WBC (Bld) 7.9 % Invalid Interpretation Code 2.0 - 13.0 % AH Workflow SS Neutrophils (Bld) [#/Vol] 4.7 103/mcL Invalid Interpretation Code 2.3 - 8.1 10^3/mcL AH Workflow SS Neutrophils/100 WBC (Bld) 62.2 % Invalid Interpretation Code 50.0 - 75.0 % AH Workflow SS Platelet mean volume (Bld) [Entitic vol] 8.4 fL Invalid Interpretation Code 6.6 - 10.5 fL AH Workflow SS Platelets (Bld) [#/Vol] 234 103/mcL Invalid Interpretation Code 150 - 450 10^3/mcL AH Workflow SS Potassium [Moles/Vol] 4.3 mmol/L Invalid Interpretation Code 3.5 - 5.0 mEq/L ADM SS Protein [Mass/Vol] 6.7 G/dL Invalid Interpretation Code 5.7 - 8.2 G/dL ADM SS Comment on above: Interpretive Data: * *Note - New Reference Range in effect 19 RBC (Bld) [#/Vol] 3.94 106/mcL Invalid Interpretation Code 4.10 - 5.30 10^6/mcL Workflow SS Sodium [Moles/Vol] 140 mmol/L Invalid Interpretation Code 136 - 145 mEq/L ADM SS Urea nitrogen [Mass/Vol] 11.0 mg/dL Invalid Interpretation Code 8.0 - 22.0 mg/dL AH ADM SS Urea nitrogen/Creatinine [Mass ratio] 14.5 ratio Invalid Interpretation Code 10.0 - 22.0 ratio AH ADM SS WBC (Bld) [#/Vol] 7.6 103/mcL Invalid Interpretation Code 4.5 - 10.8 10^3/mcL AH Workflow SS Laboratory - Chemistry and C hemistry - challengeOrdered By: Dr. Shin on 05-25-2022 HCG ( test) Ql (U) Negative [facility] Comment on above: Very dilute urine sp ecimens, as indicated by a low specificgravity, may not contain internet sales representative levels of hCG. If is still suspected, a first morning urinespecimen should be collected 48 hours later and tested. Absolute lymphocyte countOrd ered By: Dr. Liriano on 05-19-2022 Lymphocytes Auto (Unsp spec) [#/Vol] 3.05 10*3/uL 0.83-4.51 [facility] Basophil percentageOrdered B y: Dr. Liriano on 05-19-2022 Basophils/100 WBC (Bld) 0.5 % 0-1 [facility] Bilirubin [Mass/Vol] 0.30 mg/dL 0.20-1.00 [facility] Comment on above: For patients on eltr ombopag therapy, use of Dimension [place] TBIL is not recommended. Chloride [Moles/Vol] 102 mmol/L 98-107 [facility] Eosinophils/100 WBC (Bld) 0.6 % 0-5 [facility] Glucose [Mass/Vol] 100 mg/dL 74-106 [facility] Comment on above: Fasting Glucose resu lt from 100 to 125 mg/dL suggests IMPAIRED HOMEOSTASIS per A.D.A. criteria. Neutrophils (Bld) [#/Vol] 6.1 10*3/uL 2.0-7.7 [facility] Neutrophils/100 WBC (Bld) 60.9 % 47-70 [facility] Potassium [Moles/Vol] 3.9 mmol/L 3.5-5.1 [facility] Protein [Mass/Vol] 7.4 g/dL 6.4-8.2 [facility] Sodium [Moles/Vol] 138 mmol/L 136-145 [facility] WBC (Bld) [#/Vol] 10.0 10*3/uL 4.4-11.0 [facility] Blood erythrocytes count (nu mber/volume)Ordered By: Dr. Liriano on 05-19-2022 RBC (Bld) [#/Vol] 4.03 10*6/uL 4.2-5.4 [facility] Blood hemoglobin measurement (mass/volume)Ordered By: Dr. Liriano on 05-19-2022 Hemoglobin (Bld) [Mass/Vol] 13.2 g/dL 12.0-15.0 [facility] Blood lymphocytes/100 leukoc ytesOrdered By: Dr. Liriano on 05-19-2022 Lymphocytes/100 WBC (Bld) 30.7 % 19-41 [facility] Blood monocytes/100 leukocyt esOrdered By: Dr. Liriano on 05-19-2022 Monocytes/100 WBC (Bld) 7.1 % 0-10 [facility] Blood platelet mean volumeOr dered By: Dr. Liriano on 05-19-2022 Platelet mean volume (Bld) [Entitic vol] 9.7 fL 6.2-12.0 [facility] Determination of erythrocyte mean corpuscular volume (MCV)Ordered By: Dr. Liriano on 05-19-2022 MCV (RBC) [Entitic vol] 99.3 fL 81-99 [facility] Hematocrit Auto (Bld) [Volum e fraction]Ordered By: Dr. Liriano on 05-19-2022 Hematocrit (Bld) [Volume fraction] 40.0 % 37-47 [facility] - Chemistry and C hemistry - challengeOrdered By: Dr. Liriano on 05-19-2022 ALP [Catalytic activity/Vol] 63 U/L 45-117 [facility] ALT [Catalytic activity/Vol] 33 U/L 13-56 [facility] CO2 [Moles/Vol] 27.0 mmol/L 21.0-32.0 [facility] Globulin (S) [Mass/Vol] 3.4 g/dL 2.2-4.2 [facility] Urea nitrogen/Creatinine [Mass ratio] 17.3 mg/mg 10-20 [facility] - Hematology and Cell countsOrdered By: Dr. Liriano on 05-19-2022 Erythrocyte distribution width (RBC) [Entitic vol] 47.7 fL 35.1-43.9 [facility] Erythrocyte distribution width (RBC) [Ratio] 13.2 % 11.6-14.6 [facility] Immature granulocytes/100 WBC (Bld) 0.200 % 0.0-0.9 [facility] Comment on above: IG% - Immature Granu locytes (promyelocytes, myelocytes and metamyelocytes) > 1% indicates that a LEFT SHIFT is Present. MCH (RBC) [Entitic mass] 32.8 pg 27.0-32.0 [facility] Nucleated RBC/100 WBC (Bld) [Ratio] 0 % 0-5 [facility] MCHC Auto (RBC) [Mass/Vol]Or dered By: Dr. Liriano on 05-19-2022 MCHC (RBC) [Mass/Vol] 33.0 g/dL 32-36 [facility] No Panel InformationOrdered By: Dr. Liriano on 05-19-2022 Estimated GFR (MDRD) Amer 86 mL/min >60 [facility] Comment on above: GFR Calc Estimated GFR (MDRD) Non-Af Amer 71 mL/min >60 [facility] Comment on above: Non- GFR Calc Platelets bldOrdered By: Dr. Liriano on 05-19-2022 Platelets (Bld) [#/Vol] 271 10*3/uL 150-450 [facility] Serum or plasma albumin chey urement (mass/volume)Ordered By: Dr. Liriano on 05-19-2022 Albumin [Mass/Vol] 4.0 g/dL 3.2-5.0 [facility] Serum or plasma albumin/glob ulin mass ratioOrdered By: Dr. Liriano on 05-19-2022 Albumin/Globulin [Mass ratio] 1.2 {ratio} 0.9-2.4 [facility] Serum or plasma calcium chey urement (mass/volume)Ordered By: Dr. Liriano on 05-19-2022 Calcium [Mass/Vol] 8.9 mg/dL 8.5-10.1 [facility] Serum or plasma creatinine m easurement (mass/volume)Ordered By: Dr. Liriano on 05-19-2022 Creatinine [Mass/Vol] 0.92 mg/dL 0.55-1.02 [facility] Comment on above: The validity of the calculated GFR & GFRAA in patients over 70 years has not been determined. Clinical correlation is essential. Serum or plasma urea nitroge n measurement (mass/volume)Ordered By: Dr. Liriano on 05-19-2022 Urea nitrogen [Mass/Vol] 16 mg/dL 7-18 [facility] Thin prep Papanicolaou smear with manual screeningOrdered By: Dr. Liriano on 05-19-2022 Thin prep Papanicolaou smear with manual screening 18 U/L 15-37 [facility] Thin prep Papanicolaou smear with manual screening 9 5-15 [facility] .Auto Diffon 02-19-2022 Basophil, Absolute 0.0 10 3/mcL Normal 0.0-0.3 [facility] ([place]) Comment on above: Performed By: #### C MP, GFR #### [place] [address] Eosinophil, Absolute 0.0 10 3/mcL Normal 0.0-0.7 [facility] ([place]) Comment on above: Performed By: #### C MP, GFR #### [place] [address] Lymphocyte, Absolute 2.2 10 3/mcL Normal 0.9-4.3 [facility] ([place]) Comment on above: Performed By: #### C MP, GFR #### [place] [address] Monocyte, Absolute 0.4 10 3/mcL Normal 0.1-1.4 [facility] ([place]) Comment on above: Performed By: #### C MP, GFR #### [place] [address] .Auto DiffOrdered By: SYSTEM SYSTEM on 02-19-2022 Basophils/100 WBC (Bld) 0.5 % Normal 0.0-2.5 A H Workflow SS Comment on above: Performed By: #### C MP, GFR #### [address] [address] Eosinophils/100 WBC (Bld) 0.7 % Normal 0.0-6.0 AH Workflow SS Comment on above: Performed By: #### C MP, GFR #### [address] [address] Lymphocytes/100 WBC (Bld) 33.6 % Normal 20.0-40.0 AH Workflow SS Comment on above: Performed By: #### C MP, GFR #### [address] [address] Monocytes/100 WBC (Bld) 5.7 % Normal 2.0-13.0 A H Workflow SS Comment on above: Performed By: #### C MP, GFR #### [address] [address] Neutrophils/100 WBC (Bld) 59.5 % Normal 50.0-75.0 AH Workflow SS Comment on above: Performed By: #### C MP, GFR #### [address] [address] .GFRon 02-19-2022 GFR Non- >60 Normal [facility] ([place]) Comment on above: Result Comment: GFR Population mean for , Non- Americans Ages 20-29 = 116 mL/min/1.73 sq.m. Ages 30-39 = 107 mL/min/1.73 sq.m. Ages 40-49 = 99 mL/min/1.73 sq.m. Ages 50-59 = 93 mL/min/1.73 sq.m. Ages 60-69 = 85 mL/min/1.73 sq.m. Ages 70+ = 75 mL/min/1.73 sq.m. Chronic Kidney Disease: Less than 60 mL/min/1.73 square meters End Stage Renal Disease: Less than 15 mL/min/1.73 square meters Performed By: #### C MP, GFR #### [address] [address] GFR >60 Normal [facility] ([place]) Comment on above: Result Comment: GFR Population mean for , Non- Americans Ages 20-29 = 116 mL/min/1.73 sq.m. Ages 30-39 = 107 mL/min/1.73 sq.m. Ages 40-49 = 99 mL/min/1.73 sq.m. Ages 50-59 = 93 mL/min/1.73 sq.m. Ages 60-69 = 85 mL/min/1.73 sq.m. Ages 70+ = 75 mL/min/1.73 sq.m. Chronic Kidney Disease: Less than 60 mL/min/1.73 square meters End Stage Renal Disease: Less than 15 mL/min/1.73 square meters Performed By: #### C MP, GFR #### [address] [address] .NEUABSon 02-19-2022 Neutrophil, Absolute 3.9 10 3/mcL Normal 2.3-8.1 [facility] ([place]) Comment on above: Performed By: #### C MP, GFR #### [address] [address] CBCOrdered By: SYSTEM SYSTEM on 02-19-2022 Erythrocyte distribution width (RBC) [Ratio] 13.7 % Normal 11.5-15.5 AH Workflow SS Comment on above: Performed By: #### C MP, GFR #### [address] [address] Hematocrit (Bld) [Volume fraction] 39.6 % Normal 34.0-46.0 AH Workflow SS Comment on above: Performed By: #### C MP, GFR #### [address] [address] MCH (RBC) [Entitic mass] 32.0 pg Normal 27.0-33.0 AH Workflow SS Comment on above: Performed By: #### C MP, GFR #### [address] [address] MCHC 33.6 G/dL Normal 32.0-36.0 AH Workflow SS Comment on above: Performed By: #### C MP, GFR #### [place] [id number] MCV (RBC) [Entitic vol] 95.1 fL Normal 80.0-99.0 A H Workflow SS Comment on above: Performed By: #### C MP, GFR #### [place] [address] Platelet mean volume (Bld) [Entitic vol] 8.0 fL Normal 6.6-10.5 AH Workflow SS Comment on above: Performed By: #### C MP, GFR #### [place] [address] CBCon 02-19-2022 Hgb 13.3 G/dL Normal 12.0-16.0 [facility] ([place]) Comment on above: Performed By: #### C MP, GFR #### [place] [address] Platelet 257 10 3/mcL Normal 150-450 [facility] ([place]) Comment on above: Performed By: #### C MP, GFR #### [place] [address] RBC 4.16 10 6/mcL Normal 4.10-5.30 [facility] ([place]) Comment on above: Performed By: #### C MP, GFR #### [place] [address] WBC 6.6 10 3/mcL Normal 4.5-10.8 [facility] ([place]) Comment on above: Performed By: #### C MP, GFR #### [place] [id number] CMPon 02-19-2022 Albumin Level 4.1 G/dL Normal 3.2-4.8 [facility] ([place]) Comment on above: Performed By: #### C MP, GFR #### [place] [address] ALT [Catalytic activity/Vol] 25 U/L Normal 10-49 [facility] ([place]) Comment on above: Performed By: #### C MP, GFR #### [place] [address] Bili Total 0.30 mg/dL Normal 0.20-1.20 [facility] ([place]) Comment on above: Result Comment: Use of this assay is not recommended for patients undergoing treatment with eltrombopag due to the potential for falsely elevated results. Performed By: #### C MP, GFR #### [place] [id number] BUN/Creatinine Ratio 15.9 ratio Normal 10.0-22.0 [facility] ([place]) Comment on above: Performed By: #### C MP, GFR #### [place] [id number] Total Protein 7.3 G/dL Normal 5.7-8.2 [facility] ([place]) Comment on above: Result Comment: No te - New Reference Range in effect 19 Performed By: #### C MP, GFR #### [address] [address] CMPOrdered By: SYSTEM SYSTEM on 02-19-2022 Albumin/Globulin [Mass ratio] 1.3 {ratio} Normal 0.9-1.6 AH ADM SS Comment on above: Performed By: #### C MP, GFR #### [address] [address] ALP [Catalytic activity/Vol] 81 U/L Normal 38-126 AH ADM SS Comment on above: Performed By: #### C MP, GFR #### [address] [address] AST [Catalytic activity/Vol] 19 U/L Normal 8-34 AH ADM SS Comment on above: Performed By: #### C MP, GFR #### [address] [address] Calcium [Mass/Vol] 9.5 mg/dL Normal 8.7-10.4 AH ADM SS Comment on above: Performed By: #### C MP, GFR #### [address] [address] Chloride [Moles/Vol] 106 mmol/L Normal 98-110 AH A DM SS Comment on above: Performed By: #### C MP, GFR #### [address] [address] CO2 [Moles/Vol] 27 mmol/L Normal 22-32 AH ADM SS Comment on above: Performed By: #### C MP, GFR #### [place] [address] Creatinine [Mass/Vol] 0.88 mg/dL Normal 0.50-1.20 AH ADM SS Comment on above: Performed By: #### C MP, GFR #### [place] [address] Electrolyte Balance 6.0 mEq/L Normal 4.0-15.0 AH AD M SS Comment on above: Performed By: #### C MP, GFR #### [place] [address] Globulin 3.2 G/dL Normal 1.5-3.8 AH ADM SS Comment on above: Performed By: #### C MP, GFR #### [place] [address] Glucose [Mass/Vol] 127 mg/dL High 70-110 AH ADM SS Comment on above: Performed By: #### C MP, GFR #### [place] [address] Potassium [Moles/Vol] 4.1 mmol/L Normal 3.5-5.0 AH ADM SS Comment on above: Performed By: #### C MP, GFR #### [place] [address] Sodium [Moles/Vol] 139 mmol/L Normal 136-145 AH ADM SS Comment on above: Performed By: #### C MP, GFR #### [place] [address] Urea nitrogen [Mass/Vol] 14.0 mg/dL Normal 8.0-22.0 AH ADM SS Comment on above: Performed By: #### C MP, GFR #### [place] [address] LABORATORYOrdered By: SYSTEM SYSTEM on 02-19-2022 Albumin BCP dye [Mass/Vol] 4.1 G/dL Invalid Interpretation Code 3.2 - 4.8 G/dL AH ADM SS ALT No additional P-5'-P [Catalytic activity/Vol] 25 U/L Invalid Interpretation Code 10 - 49 U/L AH ADM SS Basophils (Bld) [#/Vol] 0.0 103/mcL Invalid Interpretation Code 0.0 - 0.3 10^3/mcL AH Workflow SS Bilirubin [Mass/Vol] 0.30 mg/dL Invalid Interpretation Code 0.20 - 1.20 mg/dL AH ADM SS Eosinophils (Bld) [#/Vol] 0.0 103/mcL Invalid Interpretation Code 0.0 - 0.7 10^3/mcL AH Workflow SS GFR/1.73 sq M.predicted among blacks MDRD (S/P/Bld) [Vol rate/Area] ml/min/1.73sqm Invalid Interpretation Code Chemistry S GFR/1.73 sq M.predicted among non-blacks MDRD (S/P/Bld) [Vol rate/Area] ml/min/1.73sqm Invalid Interpretation Code Chemistry S Hemoglobin (Bld) [Mass/Vol] 13.3 G/dL Invalid Interpretation Code 12.0 - 16.0 G/dL Workflow SS Lymphocytes (Bld) [#/Vol] 2.2 103/mcL Invalid Interpretation Code 0.9 - 4.3 10^3/mcL Workflow SS Monocytes (Bld) [#/Vol] 0.4 103/mcL Invalid Interpretation Code 0.1 - 1.4 10^3/mcL AH Workflow SS Neutrophils (Bld) [#/Vol] 3.9 103/mcL Invalid Interpretation Code 2.3 - 8.1 10^3/mcL AH Workflow SS Platelets (Bld) [#/Vol] 257 103/mcL Invalid Interpretation Code 150 - 450 10^3/mcL AH Workflow SS Protein [Mass/Vol] 7.3 G/dL Invalid Interpretation Code 5.7 - 8.2 G/dL ADM SS RBC (Bld) [#/Vol] 4.16 106/mcL Invalid Interpretation Code 4.10 - 5.30 10^6/mcL AH Workflow SS Urea nitrogen/Creatinine [Mass ratio] 15.9 ratio Invalid Interpretation Code 10.0 - 22.0 ratio ADM SS WBC (Bld) [#/Vol] 6.6 103/mcL Invalid Interpretation Code 4.5 - 10.8 10^3/mcL Workflow SS TB by QuantiFERON *OUTSIDE U SE ONLY*on 09-24-2021 Interpretation TBNEG Normal [facility] Reference Lab Comment on above: Performed By: #### I NTPGP #### [facility] [employer] Immuno Assay [address] [place] [address] Mitogen minus Nil >10 Normal [facility] Reference Lab Comment on above: Performed By: #### I NTPGP #### [facility] Immuno Assay [address] TB NIL 0.03 IU/mL Normal [facility] Reference Lab Comment on above: Performed By: #### I NTPGP #### [facility] Immuno Assay [address] [place] [phone] TB Result NEGAT Normal Negative [facility] Reference Lab Comment on above: Performed By: #### I NTPGP #### [facility] Immuno Assay [address] [place] [phone] TB1 Ag minus Nil 0.00 IU/mL Normal <0.35 [facility] Reference Lab Comment on above: Performed By: #### I NTPGP #### [facility] [employer] Immuno Assay [address] [place] [id number] TB2 Ag minus Nil 0.01 IU/mL Normal <0.35 [facility] Reference Lab Comment on above: Performed By: #### I NTPGP #### [facility] [employer] Immuno [facility] [address] [place] [phone] ZOE by IFAon 01-20-2021 ZOE Pattern ANANOT Normal [facility] Reference Lab Comment on above: Performed By: #### A HBSQ, HBSAG, AHCV1B, RF #### [facility] Routine Lab [address] [place] [phone] #### ANAIFS, CCP #### [facility] [employer] Immuno [facility] [address] [place] [phone] ZOE Titer Normal Negative [facility] Reference Lab Comment on above: Result Comment: Nega tive Normal range : negatie at <1:80 serum dilution. Performed By: #### A HBSQ, HBSAG, AHCV1B, RF #### [facility] Routine Lab [address] [place] [address] #### ANAIFS, CCP #### [facility] Immuno Assay [address] [place] [address] Nuclear Ab IF (S) [Titer] Negative Normal Negative [facility] Reference Lab Comment on above: Performed By: #### A HBSQ, HBSAG, AHCV1B, RF #### [facility] Routine Lab [address] [place] [address] #### ANAIFS, CCP #### [facility] Immuno Assay [address] [place] [phone] CCP Antibody, IgGon 01-21-20 21 CCP Antibody, IgG <15 Normal <20 [facility] Reference Lab Comment on above: Performed By: #### A HBSQ, HBSAG, AHCV1B, RF #### [facility] Routine Lab [address] [place] [address] #### ANAIFS, CCP #### [facility] Immuno Assay [address] [place] [address] Hep C Ab IA w/Confon 021 Hepatitis C Ab IA NEGAT Normal Negative [facility] Reference Lab Comment on above: Performed By: #### A HBSQ, HBSAG, AHCV1B, RF #### [facility] Routine Lab [address] [place] [id number] #### ANAIFS, CCP #### [facility] Immuno Assay [address] [place] [address] HepB SurfaceAb,Quanton 01-20 HepB SurfaceAb,Quant <8.00 Normal <8.00 [facility] Reference Lab Comment on above: Performed By: #### A HBSQ, HBSAG, AHCV1B, RF #### [facility] Routine Lab [address] [place] [address] #### ANAIFS, CCP #### [facility] Immuno Assay [address] [place] [address] Hepatitis B Surf. Agon 01-20 Hepatitis B Surf. Ag NEGAT Normal Negative [facility] Reference Lab Comment on above: Performed By: #### A HBSQ, HBSAG, AHCV1B, RF #### [facility] Routine Lab [address] [place] [address] #### ANAIFS, CCP #### [facility] Immuno Assay [address] [place] [phone] Rheumatoid Factoron 01-20-20 21 Rheumatoid Factor 14 IU/mL Normal <16 [facility] Reference Lab Comment on above: Performed By: #### A HBSQ, HBSAG, AHCV1B, RF #### [facility] Routine Lab [address] [place] [phone] #### ANAIFS, CCP #### [facility] Immuno Assay [address] [place] [phone] Arash 10-31-2020 TSI <0.10 Normal <0.55 [facility] Reference Lab Comment on above: Performed By: #### H SCRP #### [facility] Routine Lab [address] [place] [phone] #### TSIGIM #### [facility] Immunology [address] [place] [address] TSI Qualitative NEGAT Normal Negative [facility] Reference Lab Comment on above: Performed By: #### H SCRP #### [facility] Routine Lab [address] [place] [phone] #### TSIGIM #### [facility] Immunology [address] [place] [address] Ultra-sensitive CRPon 2020 UltraSens C-ReacProt 2.9 mg/L Normal <3.1 [facility] Reference Lab Comment on above: Performed By: #### H SCRP #### [facility] Laboratories Routine Lab [address] [place], [place] [address] #### TSIGIM #### [facility] Laboratories Immunology [address] [place], [place] [address] Vital Signs Date Time Vital Sign Value Performing Clinician Faci lity 05-25-2022 09:30-0500 Diastolic blood pressure 70 mm[Hg] [facility] 05-25-2022 09:30-0500 Heart rate 74 /min [facility] 05-25-2022 09:30-0500 Respiratory rate 16 /min [facility] 05-25-2022 09:30-0500 SaO2% (BldA) [Mass fraction] 95 % [facility] 05-25-2022 09:30-0500 Systolic blood pressure 96 mm[Hg] [facility] 05-25-2022 08:52-0500 Body temperature 98.5 [degF] [facility] 05-25-2022 08:30-0500 Inhaled oxygen flow rate 3 L/min [facility] 05-25-2022 06:40-0500 Body height 154.94 cm [facility] 05-25-2022 06:40-0500 Body mass index (BMI) [Ratio] 44.1 kg/m2 [facility] 05-25-2022 06:40-0500 Body weight 106 kg [facility] Encounters Encounter Date Encounter Type Care Provider Facility Start: 09-26-2024 End: 09-26-2024 ambulatory Maria Liriano Facility:[facility] Start: 09-13-2024 End: 09-13-2024 ambulatory Nakia DE LA TORRE Work Phone: [facility] Work Phone: Start: 09-13-2024 End: 09-13-[address] Maria Liriano MD -Laboratory, [place] Work Phone: Start: 09-13-2024 End: 09-13-2024 ambulatory Maria Deandra Facility:[facility] Start: 07-22-2024 End: 07-22-2024 ambulatory Nakia Roland [employer] ATTENDANT-C Work Phone: [facility] Work Phone: Start: 07-22-2024 End: 07-22-[address] Coral Martinez MD -Laboratory Work Phone: Start: 07-22-2024 End: 07-22-2024 ambulatory Coral Martinez Facility:[facility] Start: 06-21-2024 End: 06-21-[address] Maria Liriano MD -Laboratory, [place] Work Phone: Start: 06-21-2024 End: 06-21-2024 ambulatory [facility] Facility:[facility] Start: 06-12-2024 End: 06-13-[facility] Start: 03-21-2024 End: 03-21-2024 ambulatory [facility] [place] Facility:[facility] Start: 02-09-2024 End: 02-10-2024 ambulatory NAKIA ECKERT [facility] Start: 01-06-2024 End: 01-06-2024 ambulatory MARIA LIRIANO [facility] Start: 12-01-2023 End: 12-01-2023 ambulatory NAKIA ECKERT [facility] Start: 10-12-2023 End: 10-12-2023 ambulatory [facility] [place] Facility:[facility] Start: 07-15-2023 End: 07-15-2023 ambulatory MARIA LIRIANO [facility] Start: 01-19-2023 End: 01-19-[address] MARIA LIRIANO MD [facility] Start: 05-25-2022 End: 05-25-2022 Admission to same day surgery center [facility] Start: 05-19-2022 End: 05-19-2022 ambulatory [facility] Work Phone: Start: 05-19-2022 End: 05-19-2022 Patient encounter procedure [facility] Start: 02-19-2022 End: 02-20-[address] MARIA LIRIANO MD. Facility:A Start: 02-19-2022 End: 02-19-[address] MARIA LIRIANO MD [facility] Procedures Date Procedure Procedure Detail Performing Clinician Start: 07-22-2024 Vitamin D, 25-hydrox y measurement Nakia DE LA TORRE Work Phone: Comment on above: Vitamin D StatusDefi ciency: <20 ng/mL (50nmol/L)Insufficiency: 20-30 ng/mL (50-75 nmol/L)Sufficiency: 30-100 ng/mL (75-250 nmol/L)Toxicity: >100 ng/mL (>250 nmol/L) Start: 06-21-2024 Measurement of renal function Nakia DE LA TORRE Work Phone: Comment on above: GFR Calc Start: 05-25-2022 Laparoscopic salpingectomy Plan of Treatment Date Care Activity Detail Author Start: 05-25-2022 Introduction of urinary catheter [facility] Start: 05-25-2022 Patient discharge [facility] Start: 05-25-2022 Ambulation therapy management [facility] Start: 05-25-2022 Continuous pulse oximetry [facility] Start: 05-25-2022 Elevation of head of bed [facility] Start: 05-25-2022 Incentive spirometry [facility] Start: 05-25-2022 Measuring intake and output [facility] Start: 05-25-2022 Notification of physician [facility] Start: 05-25-2022 End: 05-25-[address] [facility] Start: 05-25-2022 Patient education [facility] Start: 05-25-2022 Taking patient vital signs [facility] Start: 05-25-2022 Wound care [facility] Start: 05-25-2022 [facility] Patient referral [facility] Work Phone: Payers Date Payer Category Payer Self-pay 2022 Unknown [id number] 2022 Unknown [id number] 1980 Unknown [id number] 2.16.8 [id number] 1980 Unknown [id number] 2.16.8 [id number] 1980 Unknown [id number] 2.16.8 [id number] 1980 Unknown [id number] 2.16.8 [id number] 1980 Unknown [id number] 2.16.8 [id number] 1980 Unknown [id number] 2.16.8 [id number] Unknown [id number] Unknown [id number] 2.16.8 [id number] Unknown [id number] 2.16.8 [id number] Unknown [id number] 2.16.8 [id number] Unknown [id number] 2.16.8 [id number] Unknown [id number] 2.16.8 [id number] Unknown [id number] 2.16.8 [id number] Social History Date Type Detail Facility Tobacco smoking status [facility]: [facility] Start: 1980 Sex Assigned At [facility] Start: 05-19-2022 [facility] Start: 07-29-2024 Sex Female (finding) [facility] Goals Date Patient Goal Desired Activity /State Mental Status Date Assessment Result Facility 05-25-2022 Cognitive function Voice/Name [facility] Work Phone: Evaluation + Plan note Note Date & Type Note Facility Evaluation + Plan note No data available for this section [facility] Evaluation note Note Date & Type Note Facility Evaluation note No assessment information availa ble [facility] Work Phone: Hospital Discharge instructions Note Date & Type Note Facility Hospital Discharge instructions No data available for this section [facility] Hospital Discharge instructions Note Date & Type Note Facility Hospital Discharge instructions Additional Instructions Implant Used?: Yes [facility] Work Phone: Progress note Note Date & Type Note Facility Progress note No data available for this section [facility] Reason for referral (narrative) Note Date & Type Note Facility Reason for referral (narrative) No reason for referral information available [facility] Work Phone: Summary Purpose Family History No Family History Records FoundNo Family History Records Found No data available for this section No Family History Records FoundNo Family History Records Found Advance Directives No Advanced Directives Records Found Advance Directive Response Recorded Date/ Time Living Will No May 19 9:08am Power of Supervisor [employer] No May 19, 2022 9:08am Chief Complaint and Reason for Visit Chief Complaint PAIN- COPY PCP SHANKAR HIGHTOWERREBECCA SALPING Chief Complaint Admit Date S/O- PAIN- COPY PCP June 21, 2024 7:39am E-ORDER July 22, 2024 8:0 7am Chief Complaint Admit Date S/O- PAIN- COPY PCP June 21, 2024 7:39am E-ORDER July 22, 2024 8:0 7am PAIN- COPY PCP September 13, 2024 7:05am Additional Source Comments INFORMATION SOURCE (unrecogn ized section and content) DATE CREATED AUTHOR 01/31/2021 [facility] DATE CREATED AUTHOR AUTHOR'S ORGANIZ ATION 06/25/2022 [facility] ([place] DATE CREATED AUTHOR AUTHOR'S ORGANIZ ATION 06/13/2024 [facility] DATE CREATED AUTHOR AUTHOR'S ORGANIZ ATION 10/06/2024 [facility] Care Team (unrecognized sect ion and content) Care Team Personnel Name: BHAVYA BRET Mary JOHN Position: Physician Med Service: Active Provider Member Role: Primary Care Physician Address: Address: [address] [place] [address]- Care Team Related Persons Name: LIZ MAHONEY Address: Home [address] [place] [id number] [place] Care Teams (unrecognized sec tion and content) Team Status: Active Member Role Status Dates Nakia Roland METAL B[employer]ING CRIB ATTENDANT, METAL B[employer]ING CRIB ATTENDANT-C Primary Care Provider Active Team Status: Inactive Member Role Status Dates Dr. Chemo Rodriguez MD Attending Provider, Referring Pr ovider Active Nakia Roland [employer] B[employer]ING CRIB ATTENDANT, METAL BONDING CRIB ATTENDANT-C Primary Care Provider Active Team Status: Inactive Member Role Status Dates Nakia Roland METAL B[employer]ING CRIB ATTENDANT, METAL BONDING CRIB ATTENDANT-C Primary Care Provider Active Dr. Maria Liriano MD Attending Provider, Referring Provider Active Team Status: Active Member Role Status Dates Coral Martinez MD Primary Care Provider Active Team Status: Inactive Member Role Status Dates Nakia Roland METAL B[employer]ING CRIB ATTENDANT, METAL BONDING CRIB ATTENDANT-C Primary Care Provider Active Start: June 21, 2024 End: June 21, 2024 Dr. Maria Liriano MD Attending Provider Active Start: June 21, 2024 End: June 21, 2024 Dr. Maria Liriano MD Referring Provider Active Start: June 21, 2024 End: June 21, 2024 Team Status: Inactive Member Role Status Dates Coral Martinez MD Primary Care Provider Active St art: July 22, 2024 End: July 22, 2024 Coral Martinez MD Attending Provider Active Start : July 22, 2024 End: July 22, 2024 Coral Martinez MD Referring Provider Active Start : July 22, 2024 End: July 22, 2024 Team Status: Inactive Member Role Status Dates Coral Martinez MD Primary Care Provider Active St art: September 13, 2024 End: September 13, 2024 Dr. Maria Liriano MD Attending Provider Active Start: September 13, 2024 End: September 13, 2024 Dr. Maria Liriano MD Referring Provider Active Start: September 13, 2024 End: September 13, 2024 Goals (unrecognized section and content) Goals may be documented in a n alternate section FOR RECORDS PERTAINING TO PATIENTS WHO ARE OR HAVE BEEN ENROLLED IN A CHEMICAL DEPENDENCY/SUBSTANCEABUSE PROGRAM, SOME INFORMATION MAY BE OMITTED. This clinical summary was aggregated from multiple sources. Caution should be exercised in using it in the provision of clinical care. This summary normalizes information from multiple sources, and as a consequence, information in this document may materially change the coding, format and clinical context of patient data. In addition, data may be omitted in some cases. CLINICAL DECISIONS SHOULD BE BASED ON THE PRIMARY CLINICAL RECORDS. [employer] provides no warranty or guarantee of the accuracy or completeness of information in this document.
--- NOTE | 2024-10-14 18:15 | CT_ITS ---
PROCEDURE: ABDOMEN/PELVIS W IV CONT ONLY 10/14/2024 REASON FOR EXAM: LEFT LOWER QUADRANT PAIN, HISTORY OF DIVERTICULITIS TECHNIQUE: Abdomen and pelvis CT with intravenous contrast. Coronal and Sagittal reconstruction series were provided. PATIENT PREPARATION: Per protocol ORAL CONTRAST TYPE: None. CONTRAST: Isovue 370 VOLUME: 100 mL One or more dose reduction techniques were used (e.g., Automated exposure control, adjustment of the mA and/or kV according to patient size, use of iterative reconstruction technique. RADIATION DOSE SUMMARY: CTDlvol: 35 mGy DLP: 1200 mGycm COMPARISON: Abdominal ultrasound 09/2024. FINDINGS: Lung bases: Unremarkable. Liver: The liver is normal in size without suspicious hepatic mass. The major portal veins are patent. No biliary ductal dilation. Gallbladder: No radiopaque stones within the gallbladder. Spleen: Normal in size. Pancreas: Unremarkable. Adrenals: No adrenal mass. Kidneys: No hydronephrosis or nephrolithiasis. Bladder: Minimally distended. Reproductive Organs: Normal uterine size and contour. Ovaries are unremarkable. Bowel: The bowel loops are nondilated. No ascites or pneumoperitoneum. Long segment mural thickening, hyperenhancement and fat stranding of the proximal descending colon with loss of haustral markings (coronal image 70 for example). Minimal distal colonic diverticulosis. No diverticulitis or intra-abdominal abscess. Lymph nodes: No suspicious lymphadenopathy. Vasculature: Minimal mixed plaque of the aortoiliac vessels. Bones/soft tissues: Small fat containing umbilical hernia. CT/Abdomen/Pelvis W IV Cont ONLY IMPRESSION: 1. Long segment wall thickening, hyperenhancement and fat stranding of the prox imal descending colon, which is indeterminate in etiology, and may represent enteritis or inflammatory bowel disease. [place] py is recommended for further evaluation. 2. Minimal colonic diverticulosis. No intra-abdominal abscess, ascites or free air. Reading Location: [id number]
[2024-10-14] MEDS: Ondansetron 4 MG/2 ML Vial IV (18:23)
[2024-10-14] MEDS: 0.9% Normal Saline (1000mL) 1,000 ML 999 ML IV (18:23)
[2024-10-14] MEDS: Morphine 4 MG/ML Syringe IV (18:23)
[2024-10-14] MEDS: Ketorolac 15 MG/ML Vial IV (18:23)
[2024-10-14 18:26] LABS: Mucous, Urine 0 SEEN /hpf (<or=2+); Red Blood Cells-Urine 0 SEEN /hpf (0-5)
[2024-10-14 18:28] LABS: Absolute Lymphocyte Count 0.99 X10^3/uL (0.83-4.51); Absolute Neutrophil Count 10.9 X10^3/uL (2.0-7.7); Basophil# 0.04 X10^3/uL; Basophil% 0.3 % (0-1); Eosinophil# 0.02 X10^3/uL; Eosinophils% 0.2 % (0-5); Hematocrit 42.6 % (37-47); Hemoglobin 14.2 g/dL (12.0-15.0); Lymphocyte # 0.99 X10^3/ul (0.83-4.51); Lymphocyte % 7.8 % (19-41); Mean Corp Hgb Conc 33.3 g/dL (32-36); Mean Corpuscular Hgb 31.5 pg (27.0-32.0); Mean Corpuscular Volume 94.5 fL (81-99); Mean Platelet Vol. 10.1 fl (6.2-12.0); Monocyte% 6.3 % (0-10); NRBC Flagged by Analyzer 0 % (0-5); Neutrophil # 10.85 X10^3/uL (2.7-7.7); Neutrophil % 84.9 % (47-70); Platelet Count 246 K/mm3 (150-450); RBC Distribution Width CV 13.2 % (11.6-14.6); RBC Distribution Width SD 45.7 fl (35.1-43.9); Red Blood Count 4.51 M/mm3 (4.2-5.4); White Blood Count 12.8 K/mm3 (4.4-11.0)
[2024-10-14 18:38] LABS: Color, Urine Amber (Yellow); Glucose, Dipstick Normal (Normal); Ketone-Dipstick 5 mg/dl (Negative); Leukocyte Esterase-Dipstick 25 /ul (Negative); Nitrite-Dipstick Negative (Negative); Occult Blood-Urine Negative /ul (Negative); Protein-Dipstick 30 mg/dl (Negative); Urine Bilirubin Dipstick 1 mg/dL (Negative); Urine Clarity Cloudy (Clear); Urine Urobilinogen Normal (Normal)
[2024-10-14 18:42] LABS: Fine Granular Cast- Urine 0-5 SEEN /lpf (0-5); Squamous Epithelial Cells - UA 0-5 SEEN /hpf (5-10); Transitional Epithelial - Ur 0-5 SEEN /hpf (0-5); White Blood Cells 0-5 SEEN /hpf (0-5)
[2024-10-14 18:43] LABS: Bacteria 4+ /hpf (None Seen); Internal QC Validated? YES +Cl - CLEAR BKGD; Pregnancy, Urine Negative Negative; Record Kit Lot#,Urine Preg 947241
[2024-10-14 18:57] LABS: ALB/GLOB Ratio 1.5 RATIO (0.9-2.4); AST(SGOT) 24 U/L (<=31); Alanine Aminotransfer ALT/SGPT 30 U/L (<=34); Albumin, Serum 4.6 g/dL (3.5-5.0); Alkaline Phosphatase 64 U/L (35-104); Anion Gap 11 (5-15); BUN 5 mg/dL (4-19); BUN/Creat Ratio 5.5 RATIO (10-20); Calcium,Total 9.6 mg/dL (7.6-11.0); Carbon Dioxide 24.5 mmol/L (21.0-32.0); Chloride 104 mmol/L (98-108); Creatinine, Serum 0.82 mg/dL (0.70-1.20); EST Glomerular Filtration Rate 91 (>60); Estimated Creatinine Clearance 93.68 ml/min (50-250); Glucose 97 mg/dL (70-99); Lipase 27 U/L (13-75); Potassium 3.6 mmol/L (3.3-5.1); Protein, Total 7.5 g/dL (5.9-8.4); Sodium Level 139 mmol/L (133-145); Total Bilirubin 0.47 mg/dL (0.00-1.30)
[2024-10-14 19:42] VITALS: BP 135/68; PULSE 77; RESP 16; O2SAT 99
[2024-10-14 21:00] VITALS: BP 107/77; PULSE 81; RESP 16; O2SAT 100
[2024-10-14 21:50] VITALS: BP 120/61; PULSE 75; RESP 16; TEMP 36.7; O2SAT 99
== END 2024-10-14 22:09 | disposition home or self-care (01) ==
PROVIDERS: Emergency Provider Emergency Medicine; PCP Family Medicine; Visit Provider Emergency Medicine
DX: R10.9 Unspecified abdominal pain (principal); M06.9 Rheumatoid arthritis, unspecified; J44.9 Chronic obstructive pulmonary disease, unspecified; R19.7 Diarrhea, unspecified; K92.1 Melena; E78.00 Pure hypercholesterolemia, unspecified; M79.7 Fibromyalgia; K76.89 Other specified diseases of liver; Z79.899 Other long term (current) drug therapy; Z87.891 Personal history of nicotine dependence
CPT/HCPCS: 74177; 80053; 81001; 81025; 83690; 85025; 87493; 87506; 96361; 96374; 96375; 99284; Q9967; J2405

== ENCOUNTER → 2024-10-17 | Outpatient (CLI) | payer BC, SELFPAY ==
[2024-10-17 09:51] LABS: Erythrocyte Sedimentation Rate 15 mm/hr (0-30)
[2024-10-17 09:53] LABS: Absolute Lymphocyte Count 2.39 X10^3/uL (0.83-4.51); Absolute Neutrophil Count 4.4 X10^3/uL (2.0-7.7); Basophil# 0.04 X10^3/uL; Basophil% 0.5 % (0-1); Eosinophils% 1.3 % (0-5); Hemoglobin 12.8 g/dL (12.0-15.0); Lymphocyte # 2.39 X10^3/ul (0.83-4.51); Lymphocyte % 31.7 % (19-41); Mean Corp Hgb Conc 32.8 g/dL (32-36); Mean Corpuscular Hgb 31.4 pg (27.0-32.0); Mean Corpuscular Volume 95.6 fL (81-99); Mean Platelet Vol. 10.4 fl (6.2-12.0); Monocyte# 0.55 X10^3/uL; Monocyte% 7.3 % (0-10); NRBC Flagged by Analyzer 0 % (0-5); Neutrophil # 4.44 X10^3/uL (2.7-7.7); Neutrophil % 58.9 % (47-70); Platelet Count 229 K/mm3 (150-450); RBC Distribution Width CV 13.1 % (11.6-14.6); RBC Distribution Width SD 46.1 fl (35.1-43.9); Red Blood Count 4.08 M/mm3 (4.2-5.4); White Blood Count 7.5 K/mm3 (4.4-11.0)
== END | disposition home or self-care (01) ==
LOC: LAB 07:48
PROVIDERS: PCP Family Medicine; Referring Provider Student in an Organized Health Care Education/Training Program; Visit Provider Student in an Organized Health Care Education/Training Program
DX: K62.5 Hemorrhage of anus and rectum (principal)
CPT/HCPCS: 36415; 85025; 85652; 86140

== ENCOUNTER → 2024-10-20 | Outpatient (CLI) | payer BC, SELFPAY ==
--- OUTSIDE RECORDS SUMMARY | 2024-10-20 07:34 | XMS RPT_ITS | CCD ---
Author Organization [facility] Team Providers Care Premium Cancellation Clerk Name Role Phone BRET LATIF DO, V Primary Care Physician DEANDRA VELASCO., DR. SIFUENTES Attending Unavaila ble BRET LATIF DO, V Primary Care Unavailable MARIA LIRIANO MD Primary Care Unavailable NAKIA MORAN CNP Consulting Unavailable MARIA LIRIANO MD Admitting Unavailable MARIA LIRIANO MD Attending Unavailable PROVIDER, UNKNOWN Consulting Unavailable PROVIDER, UNKNOWN Consulting Unavailable MARIA LIRIAON MD Admitting Unavailable NAKIA MORAN CNP Consulting Unavailable MARIA LIRIANO MD Attending Unavailable MARIA LIRIANO MD Primary Care Unavailable PROVIDER, UNKNOWN Consulting Unavailable PROVIDER, UNKNOWN Consulting Unavailable NAKIA MORAN CNP Attending Unavailable NAKIA MORAN CNP Admitting Unavailable NAKIA MORAN CNP Consulting Unavailable NAKIA MORAN CNP Primary Care Unavailable PROVIDER, UNKNOWN Consulting Unavailable PROVIDER, UNKNOWN Consulting Unavailable NAKIA MORAN CNP Admitting Unavailable NAKIA MORAN CNP Attending Unavailable NAKIA MORAN CNP Consulting Unavailable NAKIA MORAN CNP Primary Care Unavailable PROVIDER, UNKNOWN Consulting Unavailable PROVIDER, UNKNOWN Consulting Unavailable NAKIA MORAN CNP Admitting Unavailable DEANNAKIA NUNN CNP Attending Unavailable DEANNAKIA NUNN CNP Consulting Unavailable NAKIA MORAN CNP Primary Care Unavailable PROVIDER, UNKNOWN Consulting Unavailable PROVIDER, UNKNOWN Consulting Unavailable Dean DIESEL POWERPLANT MECHANIC-CNakia Primary Care Provider [phone] Deandra VELASCO, Dr. Sifuentes Attending Provider Dr. Maria Liriano MD Referring Provider Coral Martinez MD Primary Care Provider Coral Martinez MD Attending Provider [phone] Coral Martinez MD Referring Provider Dr. Sam Combs DO Emergency Provider Sheila Kong Attending Provider Juan, Chalon Primary Care Unavailable Juan, Chalon Attending Unavailable Juan, Chalon Referring Unavailable Juan, Chalon Primary Care Unavailable Vellanki, Maria Attending Unavailable Vellanki, Maria Referring Unavailable Sheila Ray Attending Unavailable Juan, Chalon Referring Unavailable Juan, Chalon Primary Care Unavailable Juan, Chalon Primary Care Unavailable Vellanki, Maria Attending Unavailable Vellanki, Maria Referring Unavailable Juan, Chalon Primary Care Unavailable Sam Combs Attending Unavailable Sheila Ray Attending Unavailable Sheila Ray Referring Unavailable Juan, Chalon Primary Care Unavailable Vellanki, Maria Referring Unavailable Dean DIESEL POWERPLANT MECHANIC, Nakia Primary Care Unavailable Vellanki, Maria Attending Unavailable Dean DIESEL POWERPLANT MECHANIC, Nakia Primary Care Unavailable Vellanki, Maria Attending Unavailable Vellanki, Maria Referring Unavailable Allergies Allergy Classification Reported Allergen(s) Allergy Type Date of Onset Reaction(s) Facility (7 sources) Amoxicillin; Translations: [amoxicillin] Drug Allergy 05-19-2022 [facility], Other [facility] Comment on above: YEAST INFECTIONS (1 source) Amoxicillin Drug Allergy [facility] Repository (1 source) Amoxicillin Drug Allergy 10-14-[address] [facility] Repository Medications Current Medications Medication Drug Class(es) Dates Sig (Normalized) Sig (Original) acetaminophen 325 mg oral tablet (2 sources) Start: 07-21-2011 Tylenol 325 mg oral tablet Dose : 650 mg = 2 tab(s), Oral, q4h, PRN for pain, # 120 tab(s), 0 Refill(s) Start Date: 07/21/11 Status: Ordered [id number] 200 actuat albuterol 0.09 mg/actuat metered dose inhaler (5 sources) beta2-Adrenergic Agonist Start: 05-19-2022 Albuterol Sulfate 90 mcg/actuation HFA aerosol inhaler Active 2 NMA INHALATION NEEDED as needed for COPD May 19, 2022 1:00am Start: 05-19-2022 Albuterol Sulf ate Active 2 INH INHALATION NEEDED May 19, 2022 12:00am atorvastatin 10 mg oral tablet (5 sources) HMG-CoA Reductase Inhibitor Start: 05-19-2022 take [...] DULoxetine 60 mg delayed release oral capsule (5 sources) Serotonin and Norepinephrine Reuptake Inhibitor Start: [...] 12:00am Ferrous Sulfate 28 mg iron Tablet (4 sources) Start: 05-19-2022 take 1 tablet by mouth once daily Ferrous Sulfate 28 mg iron Tablet Active 28 mg PO DAILY May 19, 2022 1:00am 30 actuat fluticasone furoate 0.2 mg/actuat / vilanterol 0.025 mg/actuat dry powder inhaler (5 sources) Corticosteroid, beta2-Adrenergic Agonist Start: 05-19-2022 Fluticasone Furoate-Vilanterol 200-25 mcg/dose blister with device Active 1 NMA INHALATION DAILY May 19, 2022 1:00am Start: 05-19-2022 Fluticasone Fu roate-Vilanterol Active 1 INH INHALATION DAILY May 19, 2022 12:00am folic acid 1 mg oral tablet (5 sources) Start: 05-19-2022 take 2 tablets by mouth twice daily Folic Acid 1 mg tablet Active 2 mg PO TWICE A DAY May 19, 2022 1:00am Start: 05-19-2022 take 2 mg by mouth twice daily Folic Acid Active 2 MG PO TWICE A DAY May 19, 2022 12:00am hydroxychloroquine sulfate 200 mg oral tablet (5 sources) Antimalarial, Antirheumatic Agent Start: 05-19-2022 take 1 tablet by mouth twice daily Hydroxychloroquine 200 mg tablet Active 200 mg PO TWICE A DAY May 19, 2022 1:00am leucovorin 15 mg oral tablet (5 sources) Folate Analog Start: 05-19-2022 Leucovorin Calcium 15 mg tablet Active 15 mg PO FR May 19, 2022 1:00am methotrexate 2.5 mg oral tablet (5 sources) Folate Analog Metabolic Inhibitor Start: 05-19-2022 Methotrexate Sodium 2.5 mg tablet Active 20 mg PO May 19, 2022 1:00am Start: 05-19-2022 Methotrexate S odium Active 20 MG PO May 19, 2022 12:00am Multivitamin preparation (1 source) Start: 05-19-2022 take 1 tablet by mouth once daily Multivitamin Active 1 TABLET PO DAILY May 19, 2022 12:00am Multivitamin Tablet (4 sources) Start: 05-19-2022 Multivitamin Tablet Active 1 {tbl} PO DAILY May 19, 2022 1:00am ondansetron 4 mg disintegrating oral tablet (4 sources) Serotonin-3 Receptor Antagonist Start: 10-14-2024 take 1 tablet by mouth every eight hours as needed for nausea Ondansetron 4 mg tablet,disintegrat ing Active 4 mg PO EVERY 8 HOURS NEEDED as needed for Nausea 10 October 14, 2024 10:06pm pantoprazole 40 mg delayed release oral tablet (5 sources) Proton Pump Inhibitor Start: 05-19-2022 take 1 tablet by mouth once daily Pantoprazole 40 mg tablet,delayed release (DR/EC) Active 40 mg PO DAILY May 19, 2022 1:00am predniSONE 10 mg oral tablet (5 sources) Start: 05-19-2022 Prednisone 10 mg tablet Active 10 mg PO NEEDED as needed for RHEUMATOID ARTHRITIS May 19, 2022 1:00am Tirzepatide (Weight Loss) (1 source) Start: 10-17-2024 Tirzepatide (Weight Loss) (Zepbound) 5 mg/0.5 mL pen injector Active 10 mg SC EVERY WEEK October 17, 2024 12:00am Completed/Discontinued Medications Medication Drug Class(es) Dates Sig [...] Translations: [Essential (primary) hypertension] Onset: 5 Chronic Gastrointestinal hemorrhage (3 sources) Gastrointestinal hemorrhage; Translations: [Hemorrhage of anus and rectum] Onset: 5 10-17-2024 Episodic Other aftercare (1 source) Long-term current use of drug therapy; Translations: [Other shelter (current) drug therapy] Episodic Other connective tissue [...] Test Name Value Interpretation Reference Range Facility CBC W/Diff, Automatedon 10-08 Absolute Lymph 2.39 X10 3/uL Normal 0.83-4.[address] [facility] Comment on above: Performed By: #### L 170.2527, L100.0100, L101.9900 ####[facility] [address] [place], [address] Absolute Neut 4.4 X10 3/uL Normal 2.0-7.[address] [facility] Comment on above: Performed By: #### L 501.6710, L100.0100, L101.9900 ####[facility] [address] [place], [address] Basophils/100 WBC (Bld) 0.5 % Normal 0-1 [facility] Comment on above: Performed By: #### L 501.6710, L100.0100, L101.9900 ####[facility] [address] [place], [address] Eosinophils/100 WBC (Bld) 1.3 % Normal 0-[address] [facility] Comment on above: Performed By: #### L 501.6710, L100.0100, L101.9900 ####[facility] [address] [place], [address] Erythrocyte distribution width (RBC) [Ratio] 13.1 % Normal 11.6-14.[address] [facility] Comment on above: Performed By: #### L 501.6710, L100.0100, L101.9900 ####[facility] [address] [place], [address] Hematocrit (Bld) [Volume fraction] 39.0 % Normal 37-[address] [facility] Comment on above: Performed By: #### L 501.6710, L100.0100, L101.9900 ####[facility] [address] [place], [address] Hemoglobin (Bld) [Mass/Vol] 12.8 g/dL Normal 12.0-15.[address] [facility] Comment on above: Performed By: #### L 501.6710, L100.0100, L101.9900 ####[facility] [address] [place], [address] IG% 0.300 Normal 0.0-0.[address] [facility] Comment on above: Result Comment: IG% - Immature Granulocytes (promyelocytes, myelocytes and metamyelocytes) > 1% indicates that a LEFT SHIFT is Present. Performed By: #### L 501.6710, L100.0100, L101.9900 ####[facility] [address] [place], [address] Lymphocytes/100 WBC (Bld) 31.7 % Normal 19-[address] [facility] Comment on above: Performed By: #### L 501.6710, L100.0100, L101.9900 ####[facility] [address] [place], [address] MCH (RBC) [Entitic mass] 31.4 pg Normal 27.0-32.[address] [facility] Comment on above: Performed By: #### L 501.6710, L100.0100, L101.9900 ####[facility] [address] [place], [address] MCHC (RBC) [Mass/Vol] 32.8 g/dL Normal 32-36 [facility] Comment on above: Performed By: #### L 501.6710, L100.0100, L101.9900 ####[facility] [address] [place], [address] MCV (RBC) [Entitic vol] 95.6 fL Normal 81-99 [facility] Comment on above: Performed By: #### L 501.6710, L100.0100, L101.9900 ####[facility] [address] [place], [address] Monocytes/100 WBC (Bld) 7.3 % Normal 0-10 [facility] Comment on above: Performed By: #### L 501.10, L100.0100, L101.9900 ####[facility] [address] [place], [address] Neutrophils/100 WBC (Bld) 58.9 % Normal 47-[address] [facility] Comment on above: Performed By: #### L 501.6710, L100.0100, L101.9900 ####[facility] [address] [place], [address] Nucleated RBC (Bld) [#/Vol] 0 10*3/uL Normal 0-[address] [facility] Comment on above: Performed By: #### L 501.6710, L100.0100, L101.9900 ####[facility] [address] [place], [address] Platelet mean volume (Bld) [Entitic vol] 10.4 fL Normal 6.2-12.[address] [facility] Comment on above: Performed By: #### L 501.6710, L100.0100, L101.9900 ####[facility] [address] [place], [address] Platelets (Bld) [#/Vol] 229 10*3/uL Normal 150-[address] [facility] Comment on above: Performed By: #### L 501.10, L100.0100, L101.9900 ####[facility] [address] [place], [address] RBC (Bld) [#/Vol] 4.08 10*6/uL Low 4.2-5.4 [facility] Comment on above: Performed By: #### L 501.6710, L100.0100, L101.9900 ####[facility] [address] [place], [address] RDW SD 46.1 fl High 35.1-43.[address] [facility] Comment on above: Performed By: #### L 501.6710, L100.0100, L101.9900 ####[facility] [address] [place], [address] WBC (Bld) [#/Vol] 7.5 10*3/uL Normal 4.4-11.0 [facility] Comment on above: Performed By: #### L 501.6710, L100.0100, L101.9900 ####[facility] [address] [place], [address] CRPon 10-17-2024 C-REACTIVE PROT 13.10 mg/L High 0.0-3.[address] [facility] Comment on above: Performed By: #### L 501.6710, L100.0100, L101.9900 ####[facility] [address] [place], [address] Erythrocyte Sed Rateon 10-17 SED RATE 15 mm/hr Normal 0-[address] [facility] Comment on above: Performed By: #### L 501.6710, L100.0100, L101.9900 ####[facility] [address] [place], [address] Gastroenterology Visit Repor ton 10-17-2024 Gastroenterology Visit Report [facility] [address] [place] [address] OFFICE VISIT Date of Service: 10/17/24 MR#: [id number] Acct: [id number] Name: MCKAYLA KAUFFMAN Rep #: [id number] : 1980 Provider: SHENG Zarate Age/Sex: 44/F [place] [facility] Status: Signed Intake Vital Signs 10/14/24 17:43 Height 5 ft 1 in Intake Visit Reasons: ER FU BLEEDING Chief Complaint: bleeding with bowel movement Allergies amoxicillin Adverse Reaction (Verified 10/14/24 17:42) Other Medications ???Medication ???Instructions ???Recorded ???Confirmed ???Type albuterol sulfate 90 mcg/actuation 2 inh inhalation PRN PRN COPD 05/25/22 History aerosol inhaler atorvastatin 10 mg tablet 10 mg PO QHS 05/19/22 05/19/22 His tory duloxetine 60 mg capsule,delayed 60 mg PO DAILY 05/19/22 05/19/22 H istory release (Cymbalta) ferrous sulfate 28 mg iron tablet 28 mg PO DAILY 05/19/22 05/19/22 History fluticasone furoate 200 1 inh inhalation DAILY 05/19/22 History mcg-vilanterol 25 mcg/dose inhalation powder folic acid 1 mg tablet 2 mg PO BID 05/19/22 05/19/22 Hist ory hydroxychloroquine 200 mg tablet 200 mg PO BID 05/19/22 05/19/22 Hi story leucovorin calcium 15 mg tablet 15 mg PO FR 05/19/22 05/19/22 Hist ory methotrexate sodium 2.5 mg tablet 20 mg PO TH 05/19/22 05/19/22 His tory multivitamin 1 tab PO DAILY 05/19/22 05/19/22 H istory pantoprazole 40 mg tablet,delayed 40 mg PO DAILY 05/19/22 05/25/22 History release prednisone 10 mg tablet 10 mg PO PRN PRN RHEUMATOID 05/19/22 History ARTHRITIS ondansetron 4 mg disintegrating 4 mg PO Q8H PRN PRN Nausea #10 tab s 10/14/24 Rx tablet ondansetron 4 mg disintegrating 4 mg PO Q8H PRN PRN Nausea 3 days 10/14/24 Rx tablet #10 tabs tirzepatide (weight loss) 5 mg/0.5 10 mg subcut QWEEK 10/17/2410/08 History mL subcutaneous pen injector (Zepbound) Nurse's Note: OV 10/17/24 Pt here for f/u visit from ER. Pt reports nausea, constipation, abdominal pain, gas, bloating and bloody stools. Pt reports bm daily. Reports prior hx of colonoscopy in 2021. FOR[facility]LY [facility], [facility] Medical History (Updated 10/17/24 @ 07:38 by SHENG Zarate) Wears contact lenses Wears glasses History of steroid therapy Rheumatoid arthritis Arthritis Anemia High cholesterol Migraine headache History of diverticulitis History of hiatal hernia Gastric reflux Former smoker Asthma COPD (chronic obstructive pulmonary disease) Hoarseness Chronic cough Fibromyalgia Leg cramps History of pain when walking History of edema Surgical History Hx of lymph node biopsy Hx of tonsillectomy Social History (Updated 10/14/24 @ 17:51 by Ani Terry) household members: spouse housing: house Smoking Status: Former smoker HPI HPI Chief Complaint: bleeding with bowel movement Details: MCKAYLA KAUFFMAN, is a 44 F who presents to the office today for establishment with [facility]. [facility] ED 10.14.24 with abdominal pain and bloody diarrhea. Hx of diverticulitis. CBC with leukocytosis but pt on steroids. CT showing enteritis CT abd/pelvis 10.14.24 1. Long segment wall thickening, hyperenhancement and fat stranding of the proximal descending colon, which is indeterminate in etiology, and may represent enteritis or inflammatory bowel disease. Colonoscopy is recommended for further evaluation. 2. Minimal colonic diverticulosis. No intra-abdominal abscess, ascites or free air. Stool; negative for c dif and enteric pathogens OV 10.17.24 Pt continues with bleeding and loose stools. Blood is bright red and fills the bowel. This is the first time she has ever had blood in her stool like this. She has been taking zofran as needed. She endorses hx of frequent episodes of diverticulitis treated with with cipro and flagyl. She does not take daily NSAIDs. Last colonoscopy was in 2021 with diverticula. ROS Const Constitutional: Positive for fatigue and weight change; No fever(s) ENT ENT: No difficulty swallowing Gastro GI: Positive for abdominal pain, bloating, change in bowel habits, constipation, diarrhea, heartburn, excessive flatus, Blood in stool and nausea/dyspepsia; No belching, change in stool character, coffee ground emesis, cramping, difficulty swallowing, feeling full early, incontinent of stools, Vomiting blood/hematemesis, loose stools, Black,tarry stools, pain with swallowing or other Musc Musculoskeletal: Positive for back pain, muscle weakness, numbness, tingling, Arthritis and leg pain at night; No joint pain Skin Skin: No yellowing of the eye or itchy eyes Neuro Neurology: Positive for numbness and tingling Psych Psychiatric: Positive for anxiety, No depression and Positive (more content not included)... Normal [facility] Abdomen/Pelvis W IV Cont ONL Yon 10-14-2024 Abdomen/Pelvis W IV Cont ONLY [facility] [address] [place] [address] Abdomen/Pelvis W IV Cont ONLY MR#: [id number] Acct: [id number] Name: MCKAYLA KAUFFMAN Rep #: [id number] : 1980 F 44 From: Larissa Avila nd, MD PCP: Dr. Coral Martinez MD Status: REG ER Study: Abdomen/Pelvis W IV Cont ONLY Date of Exam: Exam# [id number] Ordering Dr: Sam Combs DO PROCEDURE: ABDOMEN/PELVIS W IV CONT ONLY 10/14/2024 REASON FOR EXAM: LEFT LOWER QUADRANT PAIN, HISTORY OF DIVERTICULITIS TECHNIQUE: Abdomen and pelvis CT with intravenous contrast. Coronal and Sagittal reconstruction series were provided. PATIENT PREPARATION: Per protocol ORAL CONTRAST TYPE: None. CONTRAST: Isovue 370 VOLUME: 100 mL One or more dose reduction techniques were used (e.g., Automated exposure control, adjustment of the mA and/or kV according to patient size, use of iterative reconstruction technique. RADIATION DOSE SUMMARY: CTDlvol: 35 mGy DLP: 1200 mGycm COMPARISON: Abdominal ultrasound 09/2024. FINDINGS: Lung bases: Unremarkable. Liver: The liver is normal in size without suspicious hepatic mass. The major portal veins are patent. No biliary ductal dilation. Gallbladder: No radiopaque stones within the gallbladder. Spleen: Normal in size. Pancreas: Unremarkable. Adrenals: No adrenal mass. Kidneys: No hydronephrosis or nephrolithiasis. Bladder: Minimally distended. Reproductive Organs: Normal uterine size and contour. Ovaries are unremarkable. Bowel: The bowel loops are nondilated. No ascites or pneumoperitoneum. Long segment mural thickening, hyperenhancement and fat stranding of the proximal descending colon with loss of haustral markings (coronal image 70 for example). Minimal distal colonic diverticulosis. No diverticulitis or intra-abdominal abscess. Lymph nodes: No suspicious lymphadenopathy. Vasculature: Minimal mixed plaque of the aortoiliac vessels. Bones/soft tissues: Small fat containing umbilical hernia. CT/Abdomen/Pelvis W IV Cont ONLY IMPRESSION: 1. Long segment wall thickening, hyperenhancement and fat stranding of the proximal descending colon, which is indeterminate in etiology, and may represent enteritis or inflammatory bowel disease. Colonoscopy is recommended for further evaluation. 2. Minimal colonic diverticulosis. No intra-abdominal abscess, ascites or free air. Reading Location: [facility] CC: Dr. Coral Martinez MD; Dr. Sam Combs DO Head Stock Transfer Clerk: Signed Normal [facility] Absolute lymphocyte countOrd ered By: Sam Combs on 10-14-2024 Lymphocytes Auto (Unsp spec) [#/Vol] 0.99 10*3/uL 0.83-4.[address] [facility] Absolute neutrophil countOrd ered By: Sam Combs on 10-14-2024 Neutrophils (Bld) [#/Vol] 10.9 10*3/uL High 2.0-7.[address] [facility] Anion gap in Serum or Plasma Ordered By: Sam Combs on 10-14-2024 Anion gap [Moles/Vol] 11 mmol/L 5-15 [facility] Automated lymphocyte count a s percentage of total leukocytesOrdered By: Sam Combs on 10-14-2024 Lymphocytes/100 WBC Auto (Unsp spec) 7.8 % Low 19-[address] [facility] BUN/creatinine ratioOrdered By: Sam Combs on 10-14-2024 Urea nitrogen/Creatinine [Mass ratio] 5.5 mg/mg Low 10-[address] [facility] Basophil percentageOrdered B y: Sam Combs on 10-14-2024 Basophils/100 WBC (Bld) 0.3 % 0-1 [facility] Bilirubin Test strip Ql (U)O rdered By: Sam Combs on 10-14-2024 Bilirubin Ql (U) 1 mg/dL High Negative [facility] Comment on above: COLOR OF URINE MAY A FFECT DIPSTICK RESULTS. Bilirubin, totalOrdered By: Sam Combs on 10-14-2024 Bilirubin [Mass/Vol] 0.47 mg/dL 0.00-1.30 [facility] CBC W/Diff, Automatedon 06-0 7-2025 Absolute Lymph 0.99 X10 3/uL Normal 0.83-4.[address] [facility] Comment on above: Performed By: #### L 500.4050, L501.2450, L100.0100 ####[facility] [address] [place], [address] Absolute Neut 10.9 X10 3/uL High 2.0-7.[address] [facility] Comment on above: Performed By: #### L 500.4050, L501.2450, L100.0100 ####[facility] [address] [place], [address] Basophils/100 WBC (Bld) 0.3 % Normal 0-1 [facility] Comment on above: Performed By: #### L 500.4050, L501.2450, L100.0100 ####[facility] [address] [place], [address] Eosinophils/100 WBC (Bld) 0.2 % Normal 0-[address] [facility] Comment on above: Performed By: #### L 500.4050, L501.2450, L100.0100 ####[facility] [address] [place], [address] Erythrocyte distribution width (RBC) [Ratio] 13.2 % Normal 11.6-14.[address] [facility] Comment on above: Performed By: #### L 500.4050, L501.2450, L100.0100 ####[facility] [address] [place], [address] Hematocrit (Bld) [Volume fraction] 42.6 % Normal 37-[address] [facility] Comment on above: Performed By: #### L 500.4050, L501.2450, L100.0100 ####[facility] [address] [place], [address] Hemoglobin (Bld) [Mass/Vol] 14.2 g/dL Normal 12.0-15.[address] [facility] Comment on above: Performed By: #### L 500.4050, L501.2450, L100.0100 ####[facility] [address] [place], [address] IG% 0.500 Normal 0.0-0.[address] [facility] Comment on above: Result Comment: IG% - Immature Granulocytes (promyelocytes, myelocytes and metamyelocytes) > 1% indicates that a LEFT SHIFT is Present. Performed By: #### L 500.4050, L501.2450, L100.0100 ####[facility] [address] [place], [address] Lymphocytes/100 WBC (Bld) 7.8 % Low 19-[address] [facility] Comment on above: Performed By: #### L 500.4050, L501.2450, L100.0100 ####[facility] [address] [place], [address] MCH (RBC) [Entitic mass] 31.5 pg Normal 27.0-32.[address] [facility] Comment on above: Performed By: #### L 500.4050, L501.2450, L100.0100 ####[facility] [address] [place], [address] MCHC (RBC) [Mass/Vol] 33.3 g/dL Normal 32-36 [facility] Comment on above: Performed By: #### L 500.4050, L501.2450, L100.0100 ####[facility] [address] [place], [address] MCV (RBC) [Entitic vol] 94.5 fL Normal 81-99 [facility] Comment on above: Performed By: #### L 500.4050, L501.2450, L100.0100 ####[facility] [address] [place], [address] Monocytes/100 WBC (Bld) 6.3 % Normal 0-10 [facility] Comment on above: Performed By: #### L 500.4050, L501.2450, L100.0100 ####[facility] [address] [place], [address] Neutrophils/100 WBC (Bld) 84.9 % High 47-[address] [facility] Comment on above: Performed By: #### L 500.4050, L501.2450, L100.0100 ####[facility] [address] [place], [address] Nucleated RBC (Bld) [#/Vol] 0 10*3/uL Normal 0-[address] [facility] Comment on above: Performed By: #### L 500.4050, L501.2450, L100.0100 ####[facility] [address] [place], [address] Platelet mean volume (Bld) [Entitic vol] 10.1 fL Normal 6.2-12.[address] [facility] Comment on above: Performed By: #### L 500.4050, L501.2450, L100.0100 ####[facility] [address] [place], [address] Platelets (Bld) [#/Vol] 246 10*3/uL Normal 150-[address] [facility] Comment on above: Performed By: #### L 500.4050, L501.2450, L100.0100 ####[facility] [address] [place], [address] RBC (Bld) [#/Vol] 4.51 10*6/uL Normal 4.2-5.4 [facility] Comment on above: Performed By: #### L 500.4050, L501.2450, L100.0100 ####[facility] [address] [place], [address] RDW SD 45.7 fl High 35.1-43.[address] [facility] Comment on above: Performed By: #### L 500.4050, L501.2450, L100.0100 ####[facility] [address] [place], [address] WBC (Bld) [#/Vol] 12.8 10*3/uL High 4.4-11.0 [facility] Comment on above: Performed By: #### L 500.4050, L501.2450, L100.0100 ####[facility] [address] [place], [address] CDIFF (PCR)on 10-14-2024 CDIFF Pending [phone] NAP1-B1 Presumptive Negative *for epidemiolologic???u se C. Diff PCR Negative- No toxigenic C. Diff Detected Normal [facility] Comment on above: Performed By: #### M 100.637, L400.0001, L400.7600, M100.6796 ####[facility] [address] [place], [address] Carbon dioxide, total [Moles /volume] in Central venous bloodOrdered By: Sam Combs on 10-14-2024 CO2 [Moles/Vol] 24.5 mmol/L 21.0-32.[address] [facility] Chloride assayOrdered By: Billy Combs on 10-14-2024 Chloride [Moles/Vol] 104 mmol/L 98-108 [facility] Clostridium difficile detect ion by polymerase chain reactionOrdered By: Sam Combs on 10-14-2024 C. difficile DNA NATHAN+probe Ql (Unsp spec) [facility] Comprehensive Metabolic Prof ilon 10-14-2024 Albumin [Mass/Vol] 4.6 g/dL Normal 3.5-5.0 [facility] Comment on above: Performed By: #### L 500.4050, L501.2450, L100.0100 ####[facility] [address] [place], [address] Albumin/Globulin [Mass ratio] 1.5 {ratio} Normal 0.9-2.[address] [facility] Comment on above: Performed By: #### L 500.4050, L501.2450, L100.0100 ####[facility] [address] [place], [address] ALK PHOS 64 U/L Normal 35-[address] [facility] Comment on above: Performed By: #### L 500.4050, L501.2450, L100.0100 ####[facility] [address] [place], [address] ALT [Catalytic activity/Vol] 30 U/L Normal <=[address] [facility] Comment on above: Performed By: #### L 500.4050, L501.2450, L100.0100 ####[facility] [address] [place], [address] AST [Catalytic activity/Vol] 24 U/L Normal <=[address] [facility] Comment on above: Performed By: #### L 500.4050, L501.2450, L100.0100 ####[facility] [address] [place], [address] Bilirubin [Mass/Vol] 0.47 mg/dL Normal 0.00-1.30 [facility] Comment on above: Performed By: #### L 500.4050, L501.2450, L100.0100 ####[facility] [address] [place], [address] BUN/CRE 5.5 RATIO Low 10-[address] [facility] Comment on above: Performed By: #### L 500.4050, L501.2450, L100.0100 ####[facility] [address] [place], [address] Calcium [Mass/Vol] 9.6 mg/dL Normal 7.6-11.0 [facility] Comment on above: Performed By: #### L 500.4050, L501.2450, L100.0100 ####[facility] [address] [place], [address] Chloride [Moles/Vol] 104 mmol/L Normal 98-108 [facility] Comment on above: Performed By: #### L 500.4050, L501.2450, L100.0100 ####[facility] [address] [place], [address] CO2 [Moles/Vol] 24.5 mmol/L Normal 21.0-32.[address] [facility] Comment on above: Performed By: #### L 500.4050, L501.2450, L100.0100 ####[facility] [address] [place], [address] Creatinine [Mass/Vol] 0.82 mg/dL Normal 0.70-1.20 [facility] Comment on above: Performed By: #### L 500.4050, L501.2450, L100.0100 ####[facility] [address] [place], [address] ECRCL 93.68 ml/min Normal 50-[address] [facility] Comment on above: Performed By: #### L 500.4050, L501.2450, L100.0100 ####[facility] [address] [place], [address] GAP 11 Normal 5-[address] [facility] Comment on above: Performed By: #### L 500.4050, L501.2450, L100.0100 ####[facility] [address] [place], [address] GFR/1.73 sq M.predicted among non-blacks MDRD (S/P/Bld) [Vol rate/Area] 91 mL/min/{1.73_m2} Normal >[address] [facility] Comment on above: Result Comment: mL/m in/1.73m2 CKD-EPI Creatinine Equation (2020) Performed By: #### L 500.4050, L501.2450, L100.0100 ####[facility] [address] [place], [address] Globulin (S) [Mass/Vol] 3.0 g/dL Normal 2.2-4.2 [facility] Comment on above: Performed By: #### L 500.4050, L501.2450, L100.0100 ####[facility] [address] [place], [address] Glucose [Mass/Vol] 97 mg/dL Normal 70-99 [facility] Comment on above: Performed By: #### L 500.4050, L501.2450, L100.0100 ####[facility] [address] [place], [address] Potassium [Moles/Vol] 3.6 mmol/L Normal 3.3-5.1 [facility] Comment on above: Performed By: #### L 500.4050, L501.2450, L100.0100 ####[facility] [address] [place], [address] Sodium [Moles/Vol] 139 mmol/L Normal 133-145 [facility] Comment on above: Performed By: #### L 500.4050, L501.2450, L100.0100 ####[facility] [address] [place], [address] T PROT 7.5 g/dL Normal 5.9-8.[address] [facility] Comment on above: Performed By: #### L 500.4050, L501.2450, L100.0100 ####[facility] [address] [place], [address] Urea nitrogen [Mass/Vol] 5 mg/dL Normal 4-[address] [facility] Comment on above: Performed By: #### L 500.4050, L501.2450, L100.0100 ####[facility] [address] [place], [address] ENTERIC PATHOGEN PANEL STOOL on 10-14-2024 EP PANEL Not detected for Campylobacter group, Salmonella species, Shigella species, Vibrio Group, Yersinia enterocolitica, EHEC (Shiga Toxin 1, Shiga Toxin 2), Norovirus Gl/Gll, and Rotavirus A. Other common stool pathogens are not detected on this panel include: Aeromonas/Plesiomon as or parasites. Order testing for these organisms separately if suspected. This is an amplified DNA test which makes it both specific and sensitive. Normal Reference Range = Not Detected Nucleic acid amplification test method CAMPYLOBACTER Not Detected Norovirus Not Detected Rotavirus Not Detected Salmonella Not Detected Shiga Toxin Not Detected Shigella sp. Not Detected VIBRIO Not Detected Yersinia Not Detected Normal [facility] Comment on above: Performed By: #### M 100.637, L400.0001, L400.7600, M100.6796 ####[facility] [address] [place], [place], [address] Emergency Department Summary on 10-14-2024 Emergency Department Summary [facility] Medical Records Department [address] [place] [address] Emergency Department Summary 10/14/24 MR#: [id number] Acct: [id number] Name: MCKAYLA KAUFFMAN Rep #: [id number] : 1980 44 From: Sam Combs DO PCP: Dr. Coral Martinez MD Status:REG ER Location: ED HPI History of Present Illness Chief Complaint: GI Bleed [facility] Medical History Wears contact lenses Wears glasses History of steroid therapy Rheumatoid arthritis Arthritis Anemia High cholesterol Migraine headache History of diverticulitis History of hiatal hernia Gastric reflux Former smoker Asthma COPD (chronic obstructive pulmonary disease) Hoarseness Chronic cough Fibromyalgia Leg cramps History of pain when walking History of edema Home Medications ???Medication ???Instructions ???Recorded ???Last Taken ???Type albuterol sulfate 90 mcg/actuation 2 inh inhalation PRN PRN COPD 05/25/22 History aerosol inhaler atorvastatin 10 mg tablet 10 mg PO QHS 05/19/22 Unknown Hist ory duloxetine 60 mg capsule,delayed 60 mg PO DAILY 05/19/22 Unknown Hi story release (Cymbalta) ferrous sulfate 28 mg iron tablet 28 mg PO DAILY 05/19/22 Unknown H istory fluticasone furoate 200 1 inh inhalation DAILY 05/19/22 History mcg-vilanterol 25 mcg/dose inhalation powder folic acid 1 mg tablet 2 mg PO BID 05/19/22 Unknown Histo ry hydroxychloroquine 200 mg tablet 200 mg PO BID 05/19/22 Unknown His tory leucovorin calcium 15 mg tablet 15 mg PO FR 05/19/22 Unknown Histo ry methotrexate sodium 2.5 mg tablet 20 mg PO TH 05/19/22 Unknown Hist ory multivitamin 1 tab PO DAILY 05/19/22 Unknown Hi story pantoprazole 40 mg tablet,delayed 40 mg PO DAILY 05/19/22 05/25/22 History release prednisone 10 mg tablet 10 mg PO PRN PRN RHEUMATOID Unknown History ARTHRITIS Allergy/AdvReac Type Severity Reaction Status Date / Time amoxicillin AdvReac Other Verified 10/14/24 17:42 Surgical History Hx of lymph node biopsy Hx of tonsillectomy Social History (Updated 10/14/24 @ 17:51 by Ani Terry) household members: spouse housing: house Smoking Status: Former smoker EXAM Physical Exam Const Vital Signs: 10/14/24 17:43 10/14/24 19:42 10/14/24 21:00 Temperature 97.9 F Temperature Source Temporal Pulse Rate 115 H 77 81 Respiratory Rate 18 16 16 Blood Pressure 130/59 H 135/68 H 107/77 Blood Pressure Mean 82 90 87 Pulse Ox 99 99 100 Oxygen Delivery Method Room Air Room Air Room Air MDM MDM MDM Narrative Medical decision making narrative: HISTORY OF PRESENT ILLNESS: Chief complaint: Diarrhea, hematochezia 44-year-old female history of rheumatoid arthritis, COPD, fibromyalgia presents with abdominal pain, bloody diarrhea. The patient denies being on blood thinners. No significant approximately 4 mm. No history of diverticulitis. No she took Bentyl that relief. She further states she had left lower quadrant pain. Does not quite feel like a prior diverticulitis. She notes she did take 1 dose of ciprofloxacin and Flagyl this morning. Denies vomiting but notes nausea but denies fever. Denies sick contacts, travel, recent surgery or or other antibiotics besides the ones of interest endorsed. Denies chest pain or shortness of breath. Denies urinary complaints. Denies history of kidney stones. Denies falls or trauma. REVIEW OF SYSTEMS: Pertinent positives: Diarrhea, abdominal pain, hematochezia Pertinent negatives: Vomiting, fever, chest pain PHYSICAL EXAM: Nursing triage notes reviewed, Vital signs reviewed Constitutional: please see mdm HENT: MMM Eyes: Pupils equal round and reactive to light, Extraocular muscles intact Neck: No stridor, no JVD, full neck ROM Lungs: Clear to auscultation, No wheezing or rales. No increased work of breathing, no conversational dyspnea, no accessory muscle use, no nasal flaring. No respiratory distress noted Heart: Regular rate and rhythm, No murmurs, No rubs and No gallops, 2+ distal pulses (radial, femoral, posterior tibial) in all extremities Abdomen: Soft, there is no tenderness, rigidity, rebound or guarding, no obvious peritoneal signs, no palpable pulsatile abdominal masses, no auscultated abdominal bruit : No CVAT Extremities: No edema Neuro: No new focal neurological deficits, cranial nerves II through XII intact, 5/5 strength in all present extremities. Intact sensation to light touch in all present extremities, 2+ reflexes bilateral patella tendons. Skin: No rash or lesions noted MEDICAL DECISION MAKING: Chief Complaint: please see HPI External records reviewed: Reviewed prior imaging studie (more content not included)... Normal [facility] Eosinophil percentageOrdered By: Sam Combs on 10-14-2024 Eosinophils/100 WBC (Bld) 0.2 % 0-[address] [facility] Erythrocyte distribution wid th ratioOrdered By: Sam Combs on 10-14-2024 Erythrocyte distribution width (RBC) [Ratio] 13.2 % 11.6-14.[address] [facility] Erythrocyte distribution wid th standard deviationOrdered By: Sam Combs on 10-14-2024 Erythrocyte distribution width (RBC) [Ratio] 45.7 fl High 35.1-43.[address] [facility] Glomerular filtration rate ( GFR) estimation/1.73 sq m using serum, plasma, or whole bOrdered By: Sam Combs on 10-14-2024 GFR/1.73 sq M.predicted among non-blacks MDRD (S/P/Bld) [Vol rate/Area] 91 mL/min/{1.73_m2} >[address] [facility] Comment on above: mL/min/1.73m2 CKD-EP I Creatinine Equation (2020) Hematocrit Auto (Bld) [Volum e fraction]Ordered By: Sam Combs on 10-14-2024 Hematocrit (Bld) [Volume fraction] 42.6 % 37-[address] [facility] Hemoglobin measurementOrdere d By: Sam Combs on 10-14-2024 Hemoglobin (Bld) [Mass/Vol] 14.2 g/dL 12.0-15.[address] [facility] Immature granulocytes/100 WB C Auto (Bld)Ordered By: Sam Combs on 10-14-2024 Immature granulocytes/100 WBC (Bld) 0.500 % 0.0-0.[address] [facility] Comment on above: IG% - Immature Granu locytes (promyelocytes, myelocytes and metamyelocytes) > 1% indicates that a LEFT SHIFT is Present. Ketones Test strip Ql (U)Ord ered By: Sam Combs on 10-14-2024 Ketones Ql (U) 5 mg/dl High Negative [facility] Laboratory - Chemistry and C hemistry - challengeOrdered By: Sam Combs on 10-14-2024 AST [Catalytic activity/Vol] 24 U/L <[address] [facility] Lipaseon 10-14-2024 Lipase [Catalytic activity/Vol] 27 U/L Normal 13-[address] [facility] Comment on above: Result Comment: Manas ro note: LIPASE revised reference range effective 22. New Lipase methodology. Expected to produce lower values than the previous assay method. NEW Reference Range: 13 - 75 U/L Performed By: #### L 500.4050, L501.2450, L100.0100 ####[facility] [address] [place], [address] Lipase measurementOrdered By : Sam Combs on 10-14-2024 Lipase [Catalytic activity/Vol] 27 U/L 13-[address] [facility] Comment on above: Please note:LIPASE r evised reference range effective 22. New Lipase methodology. Expected to produce lower values than the previous assay method. NEW Reference Range: 13 - 75 U/L MCV (mean corpuscular volume ) determinationOrdered By: Sam Combs on 10-14-2024 MCV (RBC) [Entitic vol] 94.5 fL 81-99 [facility] Mean corpuscular hemoglobin (MCH) determinationOrdered By: Sam Combs on 10-14-2024 MCH (RBC) [Entitic mass] 31.5 pg 27.0-32.[address] [facility] Mean corpuscular hemoglobin concentration (MCHC) determinationOrdered By: Sam Combs on 10-14-2024 MCHC (RBC) [Mass/Vol] 33.3 g/dL 32-36 [facility] Mean platelet volume determi nationOrdered By: Sam Combs on 10-14-2024 Platelet mean volume (Bld) [Entitic vol] 10.1 fL 6.2-12.[address] [facility] Microscopic analysis of urin e for red blood cells (RBC)Ordered By: Sam Combs on 10-14-2024 Microscopic analysis of urine for red blood cells (RBC) 0 SEEN /hpf 0-[address] [facility] Monocyte percentageOrdered B y: Sam Combs on 10-14-2024 Monocytes/100 WBC (Bld) 6.3 % 0-10 [facility] Mucus LM Ql (Urine sed)Order ed By: Sam Combs on 10-14-2024 Mucus Ql (Urine sed) 0 SEEN /hpf [facility] Neutrophil percentageOrdered By: Sam Combs on 10-14-2024 Neutrophils/100 WBC (Bld) 84.9 % High 47-[address] [facility] Nitrite Test strip Ql (U)Ord ered By: Sam Combs on 10-14-2024 Nitrite Ql (U) Negative Negative [facility] Nucleated red blood cell per centageOrdered By: Sam Combs on 10-14-2024 Nucleated RBC/100 WBC (Bld) [Ratio] 0 % 0-[address] [facility] Platelet countOrdered By: Billy Combs on 10-14-2024 Platelets (Bld) [#/Vol] 246 10*3/uL 150-[address] [facility] Potassium measurement (mass/ volume)Ordered By: Sam Combs on 10-14-2024 Potassium (Unsp spec) [Mass/Vol] 3.6 mmol/L 3.3-5.[address] [facility] ,Urineon 10-14-2024 Beta HCG ( test) Ql (U) Negative Normal [facility] Comment on above: Order Comment: COLOR OF URINE MAY AFFECT DIPSTICK RESULTS. Result Comment: Very dilute urine specimens, as indicated by a low specific gravity, may not contain outreach representative levels of hCG. If is still suspected, a first morning urine specimen should be collected 48 hours later and tested. Performed By: #### M 100.637, L400.0001, L400.7600, M100.6796 ####[facility] [address] [place], [place], [address] Protein Test strip Ql (U)Ord ered By: Sam Combs on 10-14-2024 Protein Ql (U) 30 mg/dl High Negative [facility] RBC Auto (Bld) [#/Vol]Ordere d By: Sam Combs on 10-14-2024 RBC (Bld) [#/Vol] 4.51 10*6/uL 4.2-5.4 [facility] Serum creatinine measurement (mass/volume)Ordered By: Sam Combs on 10-14-2024 Creatinine [Mass/Vol] 0.82 mg/dL 0.70-1.20 [facility] Serum globulin measurementOr dered By: Sam Combs on 10-14-2024 Globulin (S) [Mass/Vol] 3.0 g/dL 2.2-4.2 [facility] Serum glucose measurement (m ass/volume)Ordered By: Sam Combs on 10-14-2024 Glucose [Mass/Vol] 97 mg/dL 70-99 [facility] Serum or plasma alanine jordan otransferase (ALT) measurementOrdered By: Sam Combs on 10-14-2024 ALT [Catalytic activity/Vol] 30 U/L <[address] [facility] Serum or plasma albumin chey urement (mass/volume)Ordered By: Sam Combs on 10-14-2024 Albumin [Mass/Vol] 4.6 g/dL 3.5-5.0 [facility] Serum or plasma albumin/glob ulin mass ratioOrdered By: Sam Combs on 10-14-2024 Albumin/Globulin [Mass ratio] 1.5 {ratio} 0.9-2.[address] [facility] Serum or plasma alkaline yony sphatase measurementOrdered By: Sam Combs on 10-14-2024 ALP [Catalytic activity/Vol] 64 U/L 35-[address] [facility] Serum or plasma calcium chey urement (mass/volume)Ordered By: Sam Combs on 10-14-2024 Calcium [Mass/Vol] 9.6 mg/dL 7.6-11.0 [facility] Serum or plasma urea nitroge n measurement (mass/volume)Ordered By: Sam Combs on 10-14-2024 Urea nitrogen [Mass/Vol] 5 mg/dL 4-[address] [facility] Sodium levelOrdered By: David Combs on 10-14-2024 Sodium [Moles/Vol] 139 mmol/L 133-145 [facility] Squamous epithelial cells de tection in urine sediment by light microscopyOrdered By: Sam Combs on 10-14-2024 Epithelial cells.squamous LM Ql (Urine sed) 0-5 SEEN /hpf 5-[address] [facility] Total proteinOrdered By: Tana Combs on 10-14-2024 Protein [Mass/Vol] 7.5 g/dL 5.9-8.4 [facility] Transitional cells detection in urine sediment by light microscopyOrdered By: Sam Combs on 10-14-2024 Transitional cells LM Ql (Urine sed) 0-5 SEEN /hpf 0-[address] [facility] Urinalysis, Completeon 10-14 BACTERIA 4+ /hpf Normal None Seen [facility] Comment on above: Order Comment: COLOR OF URINE MAY AFFECT DIPSTICK RESULTS.CLEAN CATCH Performed By: #### M 100.637, L400.0001, L400.7600, M100.6796 ####[facility] [address] [place], [address] CAST,FINE GRAN 0-5 SEEN Normal 0-[address] [facility] Comment on above: Order Comment: COLOR OF URINE MAY AFFECT DIPSTICK RESULTS.CLEAN CATCH Performed By: #### M 100.637, L400.0001, L400.7600, M100.6796 ####[facility] [address] [place], [address] EPI,SQUAMOUS 0-5 SEEN Normal 5-[address] [facility] Comment on above: Order Comment: COLOR OF URINE MAY AFFECT DIPSTICK RESULTS.CLEAN CATCH Performed By: #### M 100.637, L400.0001, L400.7600, M100.6796 ####[facility] [address] [place], [address] EPI,TRANSITION 0-5 SEEN Normal 0-[address] [facility] Comment on above: Order Comment: COLOR OF URINE MAY AFFECT DIPSTICK RESULTS.CLEAN CATCH Performed By: #### M 100.637, L400.0001, L400.7600, M100.6796 ####[facility] [address] [place], [address] WBC 0-5 SEEN Normal 0-[address] [facility] Comment on above: Order Comment: COLOR OF URINE MAY AFFECT DIPSTICK RESULTS.CLEAN CATCH Performed By: #### M 100.637, L400.0001, L400.7600, M100.6796 ####[facility] [address] [place], [address] Mucus Ql (Urine sed) [address] [facility] Comment on above: Order Comment: COLOR OF URINE MAY AFFECT DIPSTICK RESULTS.CLEAN CATCH Performed By: #### M 100.637, L400.0001, L400.7600, M100.6796 ####[facility] [address] [place], [address] RBC 0 SEEN Normal 0-[address] [facility] Comment on above: Order Comment: COLOR OF URINE MAY AFFECT DIPSTICK RESULTS.CLEAN CATCH Performed By: #### M 100.637, L400.0001, L400.7600, M100.6796 ####[facility] [address] [place], [address] Urine clarityOrdered By: Tana Combs on 10-14-2024 Clarity (U) Cloudy Clear [facility] Urine color determinationOrd ered By: Sam Combs on 10-14-2024 Color (U) Genny Yellow [facility] Urine glucose detectionOrder ed By: Sam Combs on 10-14-2024 Glucose Ql (U) Normal mg/dl Normal [facility] Center Urine leukocyte esterase det ection by dipstickOrdered By: Sam Combs on 10-14-2024 Leukocyte esterase Test strip Ql (U) 25 /ul High Negative [facility] Urine pHOrdered By: Sam valentine on 10-14-2024 pH (U) 5.0 [pH] 5.0 - 8.[address] [facility] Urine testOrdered By: Sam Combs on 10-14-2024 HCG ( test) Ql (U) Negative [facility] Comment on above: Very dilute urine sp ecimens, as indicated by a low specificgravity, may not contain outreach representative levels of hCG. If is still suspected, a first morning urinespecimen should be collected 48 hours later and tested. Urine sediment bacteria coun t by microscopy (number/high power field)Ordered By: Sam Combs on 10-14-2024 Bacteria LM.HPF (Urine sed) [#/Area] 4 /[HPF] None Seen [facility] Urine sediment fine granular cast count by microscopy (number/low power field)Ordered By: Sam Combs on 10-14-2024 Fine Granular Casts LM.LPF (Urine sed) [#/Area] 0-5 SEEN /lpf 0-[address] [facility] Urine specific gravity measu rementOrdered By: Sam Combs on 10-14-2024 Specific gravity (U) [Rel density] 1.030 1.002-1.[address] [facility] Urine urobilinogen measureme ntOrdered By: Sam Combs on 10-14-2024 Urobilinogen Ql (U) Normal mg/dl Normal [facility] White blood cell (WBC) count Ordered By: Sam Combs on 10-14-2024 WBC (Bld) [#/Vol] 12.8 10*3/uL High 4.4-11.0 [facility] White blood cell countOrdere d By: Sam Combs on 10-14-2024 White blood cell count 0-5 SEEN /hpf 0-[address] [facility] Abdomen Limitedon 09-26-2024 Abdomen Limited [facility] [address] [place] [address] Abdomen Limited MR#: [id number] Acct: [id number] Name: MCKAYLA KAUFFMAN Rep #: [id number] : 1980 F [id number] From: Skip branch MD PCP: Dr. Coral Martinez MD Status: REG CLI Study: Abdomen Limited Date of Exam: 09/26/24 Exam# [id number] Ordering Dr: Maria Liriano MD PROCEDURE: ABDOMEN [...] right lobe of the liver. Reading Location: [place] [address] CC: Dr. Coral Martinez MD; Dr. 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 Absolute lymphocyte countOrd ered By: Maria Liriano on 09-13-2024 Lymphocytes Auto (Unsp spec) [#/Vol] 2.20 10*3/uL 0.83-4.[address] [facility] Absolute neutrophil countOrd ered By: Mariahanane Liriano on 09-13-2024 Neutrophils (Bld) [#/Vol] 3.9 10*3/uL 2.0-7.[address] [facility] Anion gap in Serum or Plasma Ordered By: Maria Liriano on 09-13-2024 Anion gap [Moles/Vol] 12 mmol/L 5-15 [facility] Automated lymphocyte count a s percentage of total leukocytesOrdered By: Maria Liriano on 09-13-2024 Lymphocytes/100 WBC Auto (Unsp spec) 31.9 % 19-[address] [facility] BUN/creatinine ratioOrdered By: Mariahanane Liriano on 09-13-2024 Urea nitrogen/Creatinine [Mass ratio] 7.7 mg/mg Low 10-[address] [facility] Basophil percentageOrdered B y: Maria Liriano on 09-13-2024 Basophils/100 WBC (Bld) 0.6 % 0-1 [facility] Bilirubin, totalOrdered By: Maria Liriano on 09-13-2024 Bilirubin [Mass/Vol] 0.31 mg/dL 0.00-1.30 [facility] CBC W/Diff, Automatedon Absolute Lymph 2.20 X10 3/uL Normal 0.83-4.[address] [facility] Comment on above: Performed By: #### L 500.4050, L100.0100 #### [facility] [address] [place], [address] Absolute Neut 3.9 X10 3/uL Normal 2.0-7.[address] [facility] Comment on above: Performed By: #### L 500.4050, L100.0100 #### [facility] [address] [place], [address] Basophils/100 WBC (Bld) 0.6 % Normal 0-1 [facility] Comment on above: Performed By: #### L 500.4050, L100.0100 #### [facility] [address] [place], [address] Eosinophils/100 WBC (Bld) 1.2 % Normal 0-[address] [facility] Comment on above: Performed By: #### L 500.4050, L100.0100 #### [facility] [address] [place], [address] Erythrocyte distribution width (RBC) [Ratio] 13.1 % Normal 11.6-14.[address] [facility] Comment on above: Performed By: #### L 500.4050, L100.0100 #### [facility] [address] [place], [address] Hematocrit (Bld) [Volume fraction] 41.5 % Normal 37-[address] [facility] Comment on above: Performed By: #### L 500.4050, L100.0100 #### [facility] [address] [place], [address] Hemoglobin (Bld) [Mass/Vol] 13.8 g/dL Normal 12.0-15.[address] [facility] Comment on above: Performed By: #### L 500.4050, L100.0100 #### [facility] [address] [place], [address] IG% 0.100 Normal 0.0-0.[address] [facility] Comment on above: Result Comment: IG% - Immature Granulocytes (promyelocytes, myelocytes and metamyelocytes) > 1% indicates that a LEFT SHIFT is Present. Performed By: #### L 500.4050, L100.0100 #### [facility] [address] [place], [address] Lymphocytes/100 WBC (Bld) 31.9 % Normal 19-[address] [facility] Comment on above: Performed By: #### L 500.4050, L100.0100 #### [facility] [address] [place], [address] MCH (RBC) [Entitic mass] 31.4 pg Normal 27.0-32.[address] [facility] Comment on above: Performed By: #### L 500.4050, L100.0100 #### [facility] [address] [place], [address] MCHC (RBC) [Mass/Vol] 33.3 g/dL Normal 32-36 [facility] Comment on above: Performed By: #### L 500.4050, L100.0100 #### [facility] [address] [place], [address] MCV (RBC) [Entitic vol] 94.5 fL Normal 81-99 [facility] Comment on above: Performed By: #### L 500.4050, L100.0100 #### [facility] [address] [place], [address] Monocytes/100 WBC (Bld) 10.0 % Normal 0-10 [facility] Comment on above: Performed By: #### L 500.4050, L100.0100 #### [facility] [address] [place], [address] Neutrophils/100 WBC (Bld) 56.2 % Normal 47-[address] [facility] Comment on above: Performed By: #### L 500.4050, L100.0100 #### [facility] [address] [place], [address] Nucleated RBC (Bld) [#/Vol] 0 10*3/uL Normal 0-[address] [facility] Comment on above: Performed By: #### L 500.4050, L100.0100 #### [facility] [address] [place], [address] Platelet mean volume (Bld) [Entitic vol] 10.6 fL Normal 6.2-12.[address] [facility] Comment on above: Performed By: #### L 500.4050, L100.0100 #### [facility] [address] [place], [address] Platelets (Bld) [#/Vol] 243 10*3/uL Normal 150-[address] [facility] Comment on above: Performed By: #### L 500.4050, L100.0100 #### [facility] [address] [place], [address] RBC (Bld) [#/Vol] 4.39 10*6/uL Normal 4.2-5.4 [facility] Comment on above: Performed By: #### L 500.4050, L100.0100 #### [facility] [address] [place], [address] RDW SD 45.3 fl High 35.1-43.[address] [facility] Comment on above: Performed By: #### L 500.4050, L100.0100 #### [facility] [address] [place], [address] WBC (Bld) [#/Vol] 6.9 10*3/uL Normal 4.4-11.0 [facility] Comment on above: Performed By: #### L 500.4050, L100.0100 #### [facility] [address] [place], [address] Carbon dioxide, total [Moles /volume] in Central venous bloodOrdered By: Maria Liriano on 09-13-2024 CO2 [Moles/Vol] 22.0 mmol/L 21.0-32.[address] [facility] Chloride assayOrdered By: Sheng Liriano on 09-13-2024 Chloride [Moles/Vol] 102 mmol/L 98-108 [facility] Comprehensive Metabolic Prof ilon 09-13-2024 Albumin [Mass/Vol] 4.3 g/dL Normal 3.5-5.0 [facility] Comment on above: Performed By: #### L 500.4050, L100.0100 ####[facility] [address] [place], [address] Albumin/Globulin [Mass ratio] 1.4 {ratio} Normal 0.9-2.[address] [facility] Comment on above: Performed By: #### L 500.4050, L100.0100 ####[facility] [address] [place], [address] ALK PHOS 58 U/L Normal 35-[address] [facility] Comment on above: Performed By: #### L 500.4050, L100.0100 ####[facility] [address] [place], [address] ALT [Catalytic activity/Vol] 38 U/L High <=[address] [facility] Comment on above: Performed By: #### L 500.4050, L100.0100 ####[facility] [address] [place], [address] AST [Catalytic activity/Vol] 23 U/L Normal <=[address] [facility] Comment on above: Performed By: #### L 500.4050, L100.0100 ####[facility] [address] [place], [address] Bilirubin [Mass/Vol] 0.31 mg/dL Normal 0.00-1.30 [facility] Comment on above: Performed By: #### L 500.4050, L100.0100 ####[facility] [address] [place], [address] BUN/CRE 7.7 RATIO Low 10-[address] [facility] Comment on above: Performed By: #### L 500.4050, L100.0100 ####[facility] [address] [place], [address] Calcium [Mass/Vol] 9.6 mg/dL Normal 7.6-11.0 [facility] Comment on above: Performed By: #### L 500.4050, L100.0100 ####[facility] [address] [place], [address] Chloride [Moles/Vol] 102 mmol/L Normal 98-108 [facility] Comment on above: Performed By: #### L 500.4050, L100.0100 ####[facility] [address] [place], [address] CO2 [Moles/Vol] 22.0 mmol/L Normal 21.0-32.[address] [facility] Comment on above: Performed By: #### L 500.4050, L100.0100 ####[facility] [address] [place], [address] Creatinine [Mass/Vol] 0.82 mg/dL Normal 0.70-1.20 [facility] Comment on above: Performed By: #### L 500.4050, L100.0100 ####[facility] [address] [place], [address] GAP 12 Normal 5-[address] [facility] Comment on above: Performed By: #### L 500.4050, L100.0100 ####[facility] [address] [place], [address] GFR/1.73 sq M.predicted among non-blacks MDRD (S/P/Bld) [Vol rate/Area] 90 mL/min/{1.73_m2} Normal >[address] [facility] Comment on above: Result Comment: mL/m in/1.73m2 CKD-EPI Creatinine Equation (2020) Performed By: #### L 500.4050, L100.0100 ####[facility] [address] [place], [address] Globulin (S) [Mass/Vol] 3.0 g/dL Normal 2.2-4.2 [facility] Comment on above: Performed By: #### L 500.4050, L100.0100 ####[facility] [address] [place], [address] Glucose [Mass/Vol] 103 mg/dL High 70-99 [facility] Comment on above: Performed By: #### L 500.4050, L100.0100 ####[facility] [address] [place], [address] Potassium [Moles/Vol] 4.0 mmol/L Normal 3.3-5.1 [facility] Comment on above: Performed By: #### L 500.4050, L100.0100 ####[facility] [address] [place], [address] Sodium [Moles/Vol] 136 mmol/L Normal 133-145 [facility] Comment on above: Performed By: #### L 500.4050, L100.0100 ####[facility] [address] [place], [address] T PROT 7.3 g/dL Normal 5.9-8.[address] [facility] Comment on above: Performed By: #### L 500.4050, L100.0100 ####[facility] [address] [place], [address] Urea nitrogen [Mass/Vol] 6 mg/dL Normal 4-[address] [facility] Comment on above: Performed By: #### L 500.4050, L100.0100 ####[facility] [address] [place], [address] Eosinophil percentageOrdered By: Maria Liriano on 09-13-2024 Eosinophils/100 WBC (Bld) 1.2 % 0-[address] [facility] Erythrocyte distribution wid th ratioOrdered By: Maria Liriano on 09-13-2024 Erythrocyte distribution width (RBC) [Ratio] 13.1 % 11.6-14.[address] [facility] Erythrocyte distribution wid th standard deviationOrdered By: Maria Liriano on 09-13-2024 Erythrocyte distribution width (RBC) [Ratio] 45.3 fl High 35.1-43.[address] [facility] Glomerular filtration rate ( GFR) estimation/1.73 sq m using serum, plasma, or whole bOrdered By: Maria Liriano on 09-13-2024 GFR/1.73 sq M.predicted among non-blacks MDRD (S/P/Bld) [Vol rate/Area] 90 mL/min/{1.73_m2} >[address] [facility] Comment on above: mL/min/1.73m2 CKD-EP I Creatinine Equation (2020) Hematocrit Auto (Bld) [Volum e fraction]Ordered By: Maria Liriano on 09-13-2024 Hematocrit (Bld) [Volume fraction] 41.5 % 37-[address] [facility] Hemoglobin measurementOrdere d By: Maria Liriano on 09-13-2024 Hemoglobin (Bld) [Mass/Vol] 13.8 g/dL 12.0-15.[address] [facility] Immature granulocytes/100 WB C Auto (Bld)Ordered By: Maria Liriano on 09-13-2024 Immature granulocytes/100 WBC (Bld) 0.100 % 0.0-0.[address] [facility] Comment on above: IG% - Immature Granu locytes (promyelocytes, myelocytes and metamyelocytes) > 1% indicates that a LEFT SHIFT is Present. Laboratory - Chemistry and C hemistry - challengeOrdered By: Maria Liriano on 09-13-2024 AST [Catalytic activity/Vol] 23 U/L <[address] [facility] MCV (mean corpuscular volume ) determinationOrdered By: Maria Liriano on 09-13-2024 MCV (RBC) [Entitic vol] 94.5 fL 81-99 [facility] Mean corpuscular hemoglobin (MCH) determinationOrdered By: Maria Liriano on 09-13-2024 MCH (RBC) [Entitic mass] 31.4 pg 27.0-32.[address] [facility] Mean corpuscular hemoglobin concentration (MCHC) determinationOrdered By: Maria Liriano on 09-13-2024 MCHC (RBC) [Mass/Vol] 33.3 g/dL 32-36 [facility] Mean platelet volume determi nationOrdered By: Maria Liriano on 09-13-2024 Platelet mean volume (Bld) [Entitic vol] 10.6 fL 6.2-12.[address] [facility] Monocyte percentageOrdered B y: Maria Liriano on 09-13-2024 Monocytes/100 WBC (Bld) 10.0 % 0-10 [facility] Neutrophil percentageOrdered By: Maria Liriano on 09-13-2024 Neutrophils/100 WBC (Bld) 56.2 % 47-[address] [facility] Nucleated red blood cell per centageOrdered By: Maria Liriano on 09-13-2024 Nucleated RBC/100 WBC (Bld) [Ratio] 0 % 0-[address] [facility] Platelet countOrdered By: Sheng Liriano on 09-13-2024 Platelets (Bld) [#/Vol] 243 10*3/uL 150-[address] [facility] Potassium measurement (mass/ volume)Ordered By: Maria Liriano on 09-13-2024 Potassium (Unsp spec) [Mass/Vol] 4.0 mmol/L 3.3-5.[address] [facility] RBC Auto (Bld) [#/Vol]Ordere d By: Maria Liriano on 09-13-2024 RBC (Bld) [#/Vol] 4.39 10*6/uL 4.2-5.4 [facility] Serum creatinine measurement (mass/volume)Ordered By: Maria Liriano on 09-13-2024 Creatinine [Mass/Vol] 0.82 mg/dL 0.70-1.20 [facility] Serum globulin measurementOr dered By: Maria Liriano on 09-13-2024 Globulin (S) [Mass/Vol] 3.0 g/dL 2.2-4.2 [facility] Serum glucose measurement (m ass/volume)Ordered By: Maria Liriano on 09-13-2024 Glucose [Mass/Vol] 103 mg/dL High 70-99 [facility] Serum or plasma alanine jordan otransferase (ALT) measurementOrdered By: Maria Liriano on 09-13-2024 ALT [Catalytic activity/Vol] 38 U/L High <[address] [facility] Serum or plasma albumin chey urement (mass/volume)Ordered By: Maria Liriano on 09-13-2024 Albumin [Mass/Vol] 4.3 g/dL 3.5-5.0 [facility] Serum or plasma albumin/glob ulin mass ratioOrdered By: Maria Liriano on 09-13-2024 Albumin/Globulin [Mass ratio] 1.4 {ratio} 0.9-2.[address] [facility] Serum or plasma alkaline yony sphatase measurementOrdered By: Maria Liriano on 09-13-2024 ALP [Catalytic activity/Vol] 58 U/L 35-[address] [facility] Serum or plasma calcium chey urement (mass/volume)Ordered By: Maria Liriano on 09-13-2024 Calcium [Mass/Vol] 9.6 mg/dL 7.6-11.0 [facility] Serum or plasma urea nitroge n measurement (mass/volume)Ordered By: Maria Liriano on 09-13-2024 Urea nitrogen [Mass/Vol] 6 mg/dL 4-[address] [facility] Sodium levelOrdered By: Elana Liriano on 09-13-2024 Sodium [Moles/Vol] 136 mmol/L 133-145 [facility] Total proteinOrdered By: Jersey Liriano on 09-13-2024 Protein [Mass/Vol] 7.3 g/dL 5.9-8.4 [facility] White blood cell (WBC) count Ordered By: Maria Liriano on 09-13-2024 WBC (Bld) [#/Vol] 6.9 10*3/uL 4.4-11.0 [facility] Absolute lymphocyte countOrd ered By: Coral Martinez on 07-22-2024 Lymphocytes Auto (Unsp spec) [#/Vol] 1.80 10*3/uL 0.83-4.[address] [facility] Absolute neutrophil countOrd ered By: Coral Martinez on 07-22-2024 Neutrophils (Bld) [#/Vol] 3.8 10*3/uL 2.0-7.[address] [facility] Anion gap in Serum or Plasma Ordered By: Coral Andinoke on 07-22-2024 Anion gap [Moles/Vol] 10 mmol/L - [facility] Automated lymphocyte count a s percentage of total leukocytesOrdered By: Coral Juan on 07-22-2024 Lymphocytes/100 WBC Auto (Unsp spec) 28.3 % 19- [facility] BUN/creatinine ratioOrdered By: [facility]ardo Andinoke on 07-22-2024 Urea nitrogen/Creatinine [Mass ratio] 10.6 mg/mg 10-[address] [facility] Basophil percentageOrdered B y: Moeedgardo Juan on 07-22-2024 Basophils/100 WBC (Bld) 0.9 % 0-1 [facility] Bilirubin, totalOrdered By: Coral Andinoke on 07-22-2024 Bilirubin [Mass/Vol] 0.21 mg/dL 0.00-1.30 [facility] CBC W/Diff, Automatedon 07-08 Absolute Lymph 1.80 X10 3/uL Normal 0.83-4.[address] [facility] Comment on above: Order Comment: Order Date: 07/11/24 Order Info: 0184-1 - CBCD Performed By: #### L 100.0100, L500.4050, L501.9520, L500.4100 #### [facility] [address] [place], [address] Absolute Neut 3.8 X10 3/uL Normal 2.0-7.[address] [facility] Comment on above: Order Comment: Order Date: 07/11/24 Order Info: 0184-1 - CBCD Performed By: #### L 100.0100, L500.4050, L501.9520, L500.4100 #### [facility] [address] [place] [place], [address] Basophils/100 WBC (Bld) 0.9 % Normal 0-1 [facility] Comment on above: Order Comment: Order Date: 07/11/24 Order Info: 0184-1 - CBCD Performed By: #### L 100.0100, L500.4050, L501.9520, L500.4100 #### [facility] [address] [place], [address] Eosinophils/100 WBC (Bld) 1.7 % Normal 0-[address] [facility] Comment on above: Order Comment: Order Date: 07/11/24 Order Info: 0184-1 - CBCD Performed By: #### L 100.0100, L500.4050, L501.9520, L500.4100 #### [facility] [address] [place], [address] Erythrocyte distribution width (RBC) [Ratio] 13.7 % Normal 11.6-14.[address] [facility] Comment on above: Order Comment: Order Date: 07/11/24 Order Info: 0184-1 - CBCD Performed By: #### L 100.0100, L500.4050, L501.9520, L500.4100 #### [facility] [address] [place], [address] Hematocrit (Bld) [Volume fraction] 38.7 % Normal 37-[address] [facility] Comment on above: Order Comment: Order Date: 07/11/24 Order Info: 0184-1 - CBCD Performed By: #### L 100.0100, L500.4050, L501.9520, L500.4100 #### [facility] [address] [place] [place], [address] Hemoglobin (Bld) [Mass/Vol] 12.7 g/dL Normal 12.0-15.[address] [facility] Comment on above: Order Comment: Order Date: 07/11/24 Order Info: 0184-1 - CBCD Performed By: #### L 100.0100, L500.4050, L501.9520, L500.4100 #### [facility] [address] [place], [address] IG% 0.300 Normal 0.0-0.[address] [facility] Comment on above: Order Comment: Order Date: 07/11/24 Order Info: 0184-1 - CBCD Result Comment: IG% - Immature Granulocytes (promyelocytes, myelocytes and metamyelocytes) > 1% indicates that a LEFT SHIFT is Present. Performed By: #### L 100.0100, L500.4050, L501.9520, L500.4100 #### [facility] [address] [place], [address] Lymphocytes/100 WBC (Bld) 28.3 % Normal 19-[address] [facility] Comment on above: Order Comment: Order Date: 07/11/24 Order Info: 018- - CBCD Performed By: #### L 100.0100, L500.4050, L501.9520, L500.4100 #### [facility] [address] [place], [address] MCH (RBC) [Entitic mass] 32.2 pg High 27.0-32.[address] [facility] Comment on above: Order Comment: Order Date: 07/11/24 Order Info: 018- - CBCD Performed By: #### L 100.0100, L500.4050, L501.9520, L500.4100 #### [facility] [address] [place], [address] MCHC (RBC) [Mass/Vol] 32.8 g/dL Normal 32-36 [facility] Comment on above: Order Comment: Order Date: 07/11/24 Order Info: 018- - CBCD Performed By: #### L 100.0100, L500.4050, L501.9520, L500.4100 #### [facility] [address] [place], [address] MCV (RBC) [Entitic vol] 98.2 fL Normal 81-99 [facility] Comment on above: Order Comment: Order Date: 07/11/24 Order Info: 0184-1 - CBCD Performed By: #### L 100.0100, L500.4050, L501.9520, L500.4100 #### [facility] [address] [place], [address] Monocytes/100 WBC (Bld) 9.1 % Normal 0-10 [facility] Comment on above: Order Comment: Order Date: 07/11/24 Order Info: 0184-1 - CBCD Performed By: #### L 100.0100, L500.4050, L501.9520, L500.4100 #### [facility] [address] [place], [address] Neutrophils/100 WBC (Bld) 59.7 % Normal 47-[address] [facility] Comment on above: Order Comment: Order Date: 07/11/24 Order Info: 0184-1 - CBCD Performed By: #### L 100.0100, L500.4050, L501.9520, L500.4100 #### [facility] [address] [place], [address] Nucleated RBC (Bld) [#/Vol] 0 10*3/uL Normal 0-[address] [facility] Comment on above: Order Comment: Order Date: 07/11/24 Order Info: [id number] - CBCD Performed By: #### L 100.0100, L500.4050, L501.9520, L500.4100 #### [facility] [address] [place], [address] Platelet mean volume (Bld) [Entitic vol] 9.6 fL Normal 6.2-12.[address] [facility] Comment on above: Order Comment: Order Date: 07/11/24 Order Info: [id number] - CBCD Performed By: #### L 100.0100, L500.4050, L501.9520, L500.4100 #### [facility] [address] [place], [address] Platelets (Bld) [#/Vol] 240 10*3/uL Normal 150-[address] [facility] Comment on above: Order Comment: Order Date: 07/11/24 Order Info: [id number] - CBCD Performed By: #### L 100.0100, L500.4050, L501.9520, L500.4100 #### [facility] [address] [place], [address] RBC (Bld) [#/Vol] 3.94 10*6/uL Low 4.2-5.4 [facility] Comment on above: Order Comment: Order Date: 07/11/24 Order Info: [id number] - CBCD Performed By: #### L 100.0100, L500.4050, L501.9520, L500.4100 #### [facility] [address] [place], [address] RDW SD 49.8 fl High 35.1-43.[address] [facility] Comment on above: Order Comment: Order Date: 07/11/24 Order Info: [id number] - CBCD Performed By: #### L 100.0100, L500.4050, L501.9520, L500.4100 #### [facility] [address] [place], [address] WBC (Bld) [#/Vol] 6.4 10*3/uL Normal 4.4-11.0 [facility] Comment on above: Order Comment: Order Date: 07/11/24 Order Info: [id number] - CBCD Performed By: #### L 100.0100, L500.4050, L501.9520, L500.4100 #### [facility] [address] [place], [place], [address] Calculated very low density lipoprotein (VLDL) cholesterol measurementOrdered By: Coral Martinez on 07-22-2024 Calculated very low density lipoprotein (VLDL) cholesterol measurement 17 mg/dL 5-[address] [facility] VLDL Cholesterol 17 mg/dL 5-[address] [facility] Carbon dioxide, total [Moles /volume] in Central venous bloodOrdered By: Coral Martinez on 07-22-2024 CO2 [Moles/Vol] 24.0 mmol/L 21.0-32.[address] [facility] Chloride assayOrdered By: Es Martinez on 07-22-2024 Chloride [Moles/Vol] 103 mmol/L 98-108 [facility] Comprehensive Metabolic Prof ilon 07-22-2024 Albumin [Mass/Vol] 4.1 g/dL Normal 3.5-5.0 [facility] Comment on above: Order Comment: Order Date: 07/11/24 Order Info: [id number] - CMP Order Info: [id number] - LIPID Order Info: [id number] - TSH Performed By: #### L 100.0100, L500.4050, L501.9520, L500.4100 #### [facility] [address] [place], [address] Albumin/Globulin [Mass ratio] 1.4 {ratio} Normal 0.9-2.[address] [facility] Comment on above: Order Comment: Order Date: 07/11/24 Order Info: [id number] - CMP Order Info: [id number] - LIPID Order Info: [id number] - TSH Performed By: #### L 100.0100, L500.4050, L501.9520, L500.4100 #### [facility] [address] [place], [address] ALK PHOS 70 U/L Normal 35-[address] [facility] Comment on above: Order Comment: Order Date: 07/11/24 Order Info: [id number] - CMP Order Info: [id number] - LIPID Order Info: [id number] - TSH Performed By: #### L 100.0100, L500.4050, L501.9520, L500.4100 #### [facility] [address] [place], [address] ALT [Catalytic activity/Vol] 35 U/L Normal <=[address] [facility] Comment on above: Order Comment: Order Date: 07/11/24 Order Info: [id number] - CMP Order Info: [id number] - LIPID Order Info: [id number] - TSH Performed By: #### L 100.0100, L500.4050, L501.9520, L500.4100 #### [facility] [address] [place], [address] AST [Catalytic activity/Vol] 32 U/L Normal <=[address] [facility] Comment on above: Order Comment: Order Date: 07/11/24 Order Info: [id number] - CMP Order Info: - LIPID Order Info: 3 - TSH Performed By: #### L 100.0100, L500.4050, L501.9520, L500.4100 #### [facility] [address] [place], [address] Bilirubin [Mass/Vol] 0.21 mg/dL Normal 0.00-1.30 [facility] Comment on above: Order Comment: Order Date: 07/11/24 Order Info: [id number] - CMP Order Info: - LIPID Order Info: 3 - TSH Performed By: #### L 100.0100, L500.4050, L501.9520, L500.4100 #### [facility] [address] [place], [address] BUN/CRE 10.6 RATIO Normal 10-[address] [facility] Comment on above: Order Comment: Order Date: 07/11/24 Order Info: [id number] - CMP Order Info: - LIPID Order Info: 3 - TSH Performed By: #### L 100.0100, L500.4050, L501.9520, L500.4100 #### [facility] [address] [place], [address] Calcium [Mass/Vol] 8.7 mg/dL Normal 7.6-11.0 [facility] Comment on above: Order Comment: Order Date: 07/11/24 Order Info: [id number] - CMP Order Info: [id number] - LIPID Order Info: 3 - TSH Performed By: #### L 100.0100, L500.4050, L501.9520, L500.4100 #### [facility] [address] [place], [address] Chloride [Moles/Vol] 103 mmol/L Normal 98-108 [facility] Comment on above: Order Comment: Order Date: 07/11/24 Order Info: 07 - CMP Order Info: - LIPID Order Info: [id number] - TSH Performed By: #### L 100.0100, L500.4050, L501.9520, L500.4100 #### [facility] [address] [place], [address] CO2 [Moles/Vol] 24.0 mmol/L Normal 21.0-32.[address] [facility] Comment on above: Order Comment: Order Date: 07/11/24 Order Info: [id number] - CMP Order Info: - LIPID Order Info: 3 - TSH Performed By: #### L 100.0100, L500.4050, L501.9520, L500.4100 #### [facility] [address] [place], [address] Creatinine [Mass/Vol] 0.83 mg/dL Normal 0.70-1.20 [facility] Comment on above: Order Comment: Order Date: 07/11/24 Order Info: [id number] - CMP Order Info: [id number] - LIPID Order Info: 3 - TSH Performed By: #### L 100.0100, L500.4050, L501.9520, L500.4100 #### [facility] [address] [place], [address] GAP 10 Normal 5-[address] [facility] Comment on above: Order Comment: Order Date: 07/11/24 Order Info: [id number] - CMP Order Info: [id number] - LIPID Order Info: [id number] - TSH Performed By: #### L 100.0100, L500.4050, L501.9520, L500.4100 #### [facility] [address] [place], [address] GFR/1.73 sq M.predicted among non-blacks MDRD (S/P/Bld) [Vol rate/Area] 89 mL/min/{1.73_m2} Normal >[address] [facility] Comment on above: Order Comment: Order Date: 07/11/24 Order Info: [id number]- - CMP Order Info: [id number] - LIPID Order Info: 3 - TSH Result Comment: mL/m in/1.73m2 CKD-EPI Creatinine Equation (2020) Performed By: #### L 100.0100, L500.4050, L501.9520, L500.4100 #### [facility] [address] [place], [address] Globulin (S) [Mass/Vol] 2.9 g/dL Normal 2.2-4.2 [facility] Comment on above: Order Comment: Order Date: 07/11/24 Order Info: [id number] - CMP Order Info: [id number] - LIPID Order Info: [id number] - TSH Performed By: #### L 100.0100, L500.4050, L501.9520, L500.4100 #### [facility] [address] [place], [address] Glucose [Mass/Vol] 98 mg/dL Normal 70-99 [facility] Comment on above: Order Comment: Order Date: 07/11/24 Order Info: [id number] - CMP Order Info: [id number] - LIPID Order Info: 3 - TSH Performed By: #### L 100.0100, L500.4050, L501.9520, L500.4100 #### [facility] [address] [place], [address] Potassium [Moles/Vol] 4.3 mmol/L Normal 3.3-5.1 [facility] Comment on above: Order Comment: Order Date: 07/11/24 Order Info: [id number]- - CMP Order Info: [id number] - LIPID Order Info: 3 - TSH Performed By: #### L 100.0100, L500.4050, L501.9520, L500.4100 #### [facility] [address] [place], [address] Sodium [Moles/Vol] 137 mmol/L Normal 133-145 [facility] Comment on above: Order Comment: Order Date: 07/11/24 Order Info: [id number] - CMP Order Info: [id number] - LIPID Order Info: 3 - TSH Performed By: #### L 100.0100, L500.4050, L501.9520, L500.4100 #### [facility] [address] [place] [place], [address] T PROT 6.9 g/dL Normal 5.9-8.[address] [facility] Comment on above: Order Comment: Order Date: 07/11/24 Order Info: [id number] - CMP Order Info: [id number] - LIPID Order Info: 3 - TSH Performed By: #### L 100.0100, L500.4050, L501.9520, L500.4100 #### [facility] [address] [place], [address] Urea nitrogen [Mass/Vol] 9 mg/dL Normal 4-[address] [facility] Comment on above: Order Comment: Order Date: 07/11/24 Order Info: [id number] - CMP Order Info: [id number] - LIPID Order Info: [id number] - TSH Performed By: #### L 100.0100, L500.4050, L501.9520, L500.4100 #### [facility] [address] [place], [address] Eosinophil percentageOrdered By: Coral Martinez on 07-22-2024 Eosinophils/100 WBC (Bld) 1.7 % 0-[address] [facility] Erythrocyte distribution wid th ratioOrdered By: Coral Martinez on 07-22-2024 Erythrocyte distribution width (RBC) [Ratio] 13.7 % 11.6-14.[address] [facility] Erythrocyte distribution wid th standard deviationOrdered By: Coral Martinez on 07-22-2024 Erythrocyte distribution width (RBC) [Entitic vol] 49.8 fL High 35.1-43.[address] [facility] Erythrocyte distribution width (RBC) [Ratio] 49.8 fl High 35.1-43.[address] [facility] GFR/1.73 sq M.predicted diana g non-blacks MDRD (S/P/Bld) [Vol rate/Area]Ordered By: Coral Martinez on 07-22-2024 Estimated GFR (MDRD) Non-Af Amer 89 >[address] [facility] Comment on above: mL/min/1.73m2 CKD-EP I Creatinine Equation (2020) Glomerular filtration rate ( GFR) estimation/1.73 sq m using serum, plasma, or whole bOrdered By: Coral Martinez on 07-22-2024 GFR/1.73 sq M.predicted among non-blacks MDRD (S/P/Bld) [Vol rate/Area] 89 mL/min/{1.73_m2} >[address] [facility] Comment on above: mL/min/1.73m2 CKD-EP I Creatinine Equation (2020) Hematocrit Auto (Bld) [Volum e fraction]Ordered By: Coral Martinez on 07-22-2024 Hematocrit (Bld) [Volume fraction] 38.7 % 37-[address] [facility] Hemoglobin measurementOrdere d By: Coral Martinez on 07-22-2024 Hemoglobin (Bld) [Mass/Vol] 12.7 g/dL 12.0-15.[address] [facility] Immature granulocytes/100 WB C Auto (Bld)Ordered By: Coral Martinez on 07-22-2024 Immature granulocytes/100 WBC (Bld) 0.300 % 0.0-0.[address] [facility] Comment on above: IG% - Immature Granu locytes (promyelocytes, myelocytes and metamyelocytes) > 1% indicates that a LEFT SHIFT is Present. L506.1001on 07-22-2024 Vitamin D 25-OH 25.0 ng/mL Low 30-[address] [facility] Comment on above: Order Comment: Order Date: 07/11/24 Order Info: [id number] - CMP Order Info: [id number] - LIPID Order Info: [id number] - TSH Result Comment: Linnea min D Status Deficiency: <20 ng/mL (50nmol/L) Insufficiency: 20-30 ng/mL (50-75 nmol/L) Sufficiency: 30-100 ng/mL (75-250 nmol/L) Toxicity: >100 ng/mL (>250 nmol/L) Performed By: #### L 506.1001 #### [facility] [address] [place] [address], [id number] LDL calc ser/plasOrdered By: Coral Martinez on 07-22-2024 Cholesterol in LDL [Mass/Vol] 76 mg/dL [facility] Comment on above: Mywdhkklby=001-143 m g/dL & Higher Rrhs=073 mg/dL or greater LDL Cholesterol, Calculated 76 mg/dL [facility] Comment on above: Yaypwiulqs=746-726 m g/dL & Higher Kxtu=918 mg/dL or greater Laboratory - Chemistry and C hemistry - challengeOrdered By: Coral Martinez on 07-22-2024 AST [Catalytic activity/Vol] 32 U/L <[address] [facility] Lipid Profileon 07-22-2024 CHOL:HDL 2.[address] [facility] Comment on above: Order Comment: Order Date: 07/11/24 Order Info: [id number] - CMP Order Info: [id number] - LIPID Order Info: [id number] - TSH Performed By: #### L 100.0100, L500.4050, L501.9520, L500.4100 #### [facility] [address] [place], [address] Cholesterol [Mass/Vol] 163 mg/dL Normal <=200 [facility] Comment on above: Order Comment: Order Date: 07/11/24 Order Info: [id number] - CMP Order Info: [id number] - LIPID Order Info: [id number] - TSH Result Comment: Chol esterol level, Desirable <200 mg/dL Borderline high cholesterol 200-239 mg/dL High cholesterol >=240 mg/dL Recommendations of the NCEP Adult Treatment Panel for the following risk-cutoff thresholds for the [place] population. Performed By: #### L 100.0100, L500.4050, L501.9520, L500.4100 #### [facility] [address] [place], [address] Cholesterol in HDL [Mass/Vol] 71 mg/dL Normal [facility] Comment on above: Order Comment: Order Date: 07/11/24 Order Info: [id number] - CMP Order Info: - LIPID Order Info: 3 - TSH Result Comment: [place] onal Cholesterol Education Program (NCEP) guidelines: <40 mg/dL: Low HDL-cholesterol (major risk factor for CHD) >= 60 mg/dL: High HDL-cholesterol (negative risk factor for CHD) HDL-cholesterol is affected by a number of factors, e.g. smoking, exercise, hormones, sex and age. Performed By: #### L 100.0100, L500.4050, L501.9520, L500.4100 #### [facility] [address] [place], [address] Cholesterol in LDL [Mass/Vol] 76 mg/dL Normal [facility] Comment on above: Order Comment: Order Date: 07/11/24 Order Info: [id number] - CMP Order Info: [id number] - LIPID Order Info: [id number] - TSH Result Comment: Bord iliiso=798-956 mg/dL Higher Drsr=852 mg/dL or greater Performed By: #### L 100.0100, L500.4050, L501.9520, L500.4100 #### [facility] [address] [place], [address] Cholesterol in VLDL [Mass/Vol] 17 mg/dL Normal 5-[address] [facility] Comment on above: Order Comment: Order Date: 07/11/24 Order Info: [id number] - CMP Order Info: [id number] - LIPID Order Info: [id number] - TSH Performed By: #### L 100.0100, L500.4050, L501.9520, L500.4100 #### [facility] [address] [place], [address] Triglyceride [Mass/Vol] 84 mg/dL Normal [facility] Comment on above: Order Comment: Order Date: 07/11/24 Order Info: [id number] - CMP Order Info: [id number] - LIPID Order Info: [id number] - TSH Result Comment: The drugs N-Acetylcysteine and Metamizole may falsely depress this assay. Normal range: <150 mg/dL Borderline High: 150-199 mg/dL High: 200-499 mg/dL Very High: >500 mg/dL Performed By: #### L 100.0100, L500.4050, L501.9520, L500.4100 #### [facility] [address] [place], [address] Lymphocytes Auto (Unsp spec) [#/Vol]Ordered By: Coral Martinez on 07-22-2024 Lymphocytes (Bld) [#/Vol] 1.80 10*3/uL 0.83-4.[address] [facility] Lymphocytes/100 WBC Auto (Un sp spec)Ordered By: Coral Martinez on 07-22-2024 Lymphocytes/100 WBC (Bld) 28.3 % 19-[address] [facility] MCV (mean corpuscular volume ) determinationOrdered By: Coral Martinez on 07-22-2024 MCV (RBC) [Entitic vol] 98.2 fL 81-99 [facility] Mean corpuscular hemoglobin (MCH) determinationOrdered By: Coral Martinez on 07-22-2024 MCH (RBC) [Entitic mass] 32.2 pg High 27.0-32.[address] [facility] Mean corpuscular hemoglobin concentration (MCHC) determinationOrdered By: Coral Martinez on 07-22-2024 MCHC (RBC) [Mass/Vol] 32.8 g/dL 32-36 [facility] Mean platelet volume determi nationOrdered By: Coral Martinez on 07-22-2024 Platelet mean volume (Bld) [Entitic vol] 9.6 fL 6.2-12.[address] [facility] Monocyte percentageOrdered B y: Coral Martinez on 07-22-2024 Monocytes/100 WBC (Bld) 9.1 % 0-10 [facility] Neutrophil percentageOrdered By: Coral Martinez on 07-22-2024 Neutrophils/100 WBC (Bld) 59.7 % 47-[address] [facility] Nucleated red blood cell per centageOrdered By: Coral Martinez on 07-22-2024 Nucleated RBC/100 WBC (Bld) [Ratio] 0 % 0-[address] [facility] Platelet countOrdered By: Es Martinez on 07-22-2024 Platelets (Bld) [#/Vol] 240 10*3/uL 150-[address] [facility] Potassium (Unsp spec) [Mass/ Vol]Ordered By: Coral Martinez on 07-22-2024 Potassium [Moles/Vol] 4.3 mmol/L 3.3-5.1 [facility] Potassium measurement (mass/ volume)Ordered By: Coral Martinez on 07-22-2024 Potassium (Unsp spec) [Mass/Vol] 4.3 mmol/L 3.3-5.[address] [facility] RBC Auto (Bld) [#/Vol]Ordere d By: Coral Martinez on 07-22-2024 RBC (Bld) [#/Vol] 3.94 10*6/uL Low 4.2-5.4 [facility] Screening total cholesterol/ high density lipoprotein (HDL) cholesterol ratioOrdered By: Coral Martinez on 07-22-2024 Cholesterol.total/Choles terol in HDL [Mass ratio] 2.31 {ratio} [facility] Serum creatinine measurement (mass/volume)Ordered By: Coral Martinez on 07-22-2024 Creatinine [Mass/Vol] 0.83 mg/dL 0.70-1.20 [facility] Serum globulin measurementOr dered By: Coral Martinez on 07-22-2024 Globulin (S) [Mass/Vol] 2.9 g/dL 2.2-4.2 [facility] Serum glucose measurement (m ass/volume)Ordered By: Coral Martinez on 07-22-2024 Glucose [Mass/Vol] 98 mg/dL 70-99 [facility] Serum or plasma alanine jordan otransferase (ALT) measurementOrdered By: Coral Martinez on 07-22-2024 ALT [Catalytic activity/Vol] 35 U/L <[address] [facility] Serum or plasma albumin chey urement (mass/volume)Ordered By: Coral Martinez on 07-22-2024 Albumin [Mass/Vol] 4.1 g/dL 3.5-5.0 [facility] Serum or plasma albumin/glob ulin mass ratioOrdered By: Coral Martinez on 07-22-2024 Albumin/Globulin [Mass ratio] 1.4 {ratio} 0.9-2.[address] [facility] Serum or plasma alkaline yony sphatase measurementOrdered By: Coral Martinez on 07-22-2024 ALP [Catalytic activity/Vol] 70 U/L 35-[address] [facility] Serum or plasma calcium chey urement (mass/volume)Ordered By: Coral Martinez on 07-22-2024 Calcium [Mass/Vol] 8.7 mg/dL 7.6-11.0 [facility] Serum or plasma cholesterol in HDL measurement (mass/volume)Ordered By: Coral Martinez on 07-22-2024 Cholesterol in HDL [Mass/Vol] 71 mg/dL >[address] [facility] Comment on above: National Cholesterol Education Program (NCEP) guidelines:<40 mg/dL: Low HDL-cholesterol (major risk factor for CHD)>= 60 mg/dL: High HDL-cholesterol (negative risk factor for CHD)HDL-cholesterol is affected by a number of factors, e.g. smoking, exercise, hormones, sex and age. Serum or plasma cholesterol measurement (mass/volume)Ordered By: Coral Martinez on 07-22-2024 Cholesterol [Mass/Vol] 163 mg/dL <201 [facility] Comment on above: Cholesterol level, D esirable <200 mg/dLBorderline high cholesterol 200-239 mg/dLHigh cholesterol >=240 mg/dLRecommendations of the NCEP Adult Treatment Panel for the following risk-cutoff thresholds for the [place] population. Serum or plasma urea nitroge n measurement (mass/volume)Ordered By: Coral Martinez on 07-22-2024 Urea nitrogen [Mass/Vol] 9 mg/dL 4-[address] [facility] Sodium levelOrdered By: Moe Martinez on 07-22-2024 Sodium [Moles/Vol] 137 mmol/L 133-145 [facility] TSH DL <= 0.005 mIU/L QnOrde red By: Coral Martinez on 07-22-2024 Thyroid Stimulating Hormone (TSH) 0.289 uIU/mL Low 0.300-4.[address] [facility] TSH Qn 0.289 uIU/mL Low 0.300-4.[address] [facility] Thyroid Stim Hormone (TSH)on 07-22-2024 TSH 0.289 uIU/mL Low 0.300-4.[address] [facility] Comment on above: Order Comment: Order Date: 07/11/24 Order Info: [id number] - CMP Order Info: [id number] - LIPID Order Info: [id number] - TSH Performed By: #### L 100.0100, L500.4050, L501.9520, L500.4100 #### [facility] [address] [place], [address] Total proteinOrdered By: aKro Martinez on 07-22-2024 Protein [Mass/Vol] 6.9 g/dL 5.9-8.4 [facility] Triglycerides measurementOrd ered By: Coral Martinez on 07-22-2024 Triglyceride [Mass/Vol] 84 mg/dL <199 [facility] Comment on above: The drugs N-Acetylcy steine and Metamizole may falsely depress this assay. Normal range: <150 mg/dLBorderline High: 150-199 mg/dLHigh: 200-499 mg/dLVery High: >500 mg/dL Vitamin D, 25-hydroxyOrdered By: Coral Martinez on 07-22-2024 Vitamin D 25-Hydroxy 25.0 ng/mL Low 30-100 [facility] Comment on above: Vitamin D StatusDefi ciency: <20 ng/mL (50nmol/L)Insufficiency: 20-30 ng/mL (50-75 nmol/L)Sufficiency: 30-100 ng/mL (75-250 nmol/L)Toxicity: >100 ng/mL (>250 nmol/L) White blood cell (WBC) count Ordered By: Coral Martinez on 07-22-2024 WBC (Bld) [#/Vol] 6.4 10*3/uL 4.4-11.0 [facility] Absolute lymphocyte countOrd ered By: Maria Liriano on 06-21-2024 Lymphocytes Auto (Unsp spec) [#/Vol] 2.27 10*3/uL 0.83-4.[address] [facility] Absolute neutrophil countOrd ered By: Maria Liriano on 06-21-2024 Neutrophils (Bld) [#/Vol] 3.8 10*3/uL 2.0-7.[address] [facility] Albumin to globulin ratioOrd ered By: Maria Liriano on 06-21-2024 Albumin/Globulin [Mass ratio] 0.9 {ratio} 0.9-2.[address] [facility] Automated lymphocyte count a s percentage of total leukocytesOrdered By: Maria Liriano on 06-21-2024 Lymphocytes/100 WBC Auto (Unsp spec) 33.0 % 19-[address] [facility] Basophil percentageOrdered B y: Maria Liriano on 06-21-2024 Basophils/100 WBC (Bld) 0.6 % 0-1 [facility] Bilirubin, totalOrdered By: Maria Liriano on 06-21-2024 Bilirubin [Mass/Vol] 0.30 mg/dL 0.20-1.00 [facility] Comment on above: For patients on eltr ombopag therapy, use of Dimension [place] TBIL is not recommended. Blood urea nitrogen (BUN)/cr eatinine ratioOrdered By: Maria Liriano on 06-21-2024 Urea nitrogen/Creatinine [Mass ratio] 11.6 mg/mg 10-[address] [facility] CBC W/Diff, Automatedon 06-10 Absolute Lymph 2.27 X10 3/uL Normal 0.83-4.[address] [facility] Comment on above: Performed By: #### L 100.0100, L500.4050 ####[facility] [id number] [place], [address] Absolute Neut 3.8 X10 3/uL Normal 2.0-7.[address] [facility] Comment on above: Performed By: #### L 100.0100, L500.4050 ####[facility] [id number] [place], [address] Basophils/100 WBC (Bld) 0.6 % Normal 0-1 [facility] Comment on above: Performed By: #### L 100.0100, L500.4050 ####[facility] [address] [place], [address] Eosinophils/100 WBC (Bld) 1.6 % Normal 0-[address] [facility] Comment on above: Performed By: #### L 100.0100, L500.4050 ####[facility] [address] [place], [address] Erythrocyte distribution width (RBC) [Ratio] 13.6 % Normal 11.6-14.[address] [facility] Comment on above: Performed By: #### L 100.0100, L500.4050 ####[facility] [address] [place], [address] Hematocrit (Bld) [Volume fraction] 38.6 % Normal 37-[address] [facility] Comment on above: Performed By: #### L 100.0100, L500.4050 ####[facility] [address] [place], [address] Hemoglobin (Bld) [Mass/Vol] 12.7 g/dL Normal 12.0-15.[address] [facility] Comment on above: Performed By: #### L 100.0100, L500.4050 ####[facility] [address] [place], [address] IG% 0.100 Normal 0.0-0.[address] [facility] Comment on above: Result Comment: IG% - Immature Granulocytes (promyelocytes, myelocytes and metamyelocytes) > 1% indicates that a LEFT SHIFT is Present. Performed By: #### L 100.0100, L500.4050 ####[facility] [address] [place], [address] Lymphocytes/100 WBC (Bld) 33.0 % Normal 19-[address] [facility] Comment on above: Performed By: #### L 100.0100, L500.4050 ####[facility] [address] [place], [address] MCH (RBC) [Entitic mass] 32.2 pg High 27.0-32.[address] [facility] Comment on above: Performed By: #### L 100.0100, L500.4050 ####[facility] [address] [place], [address] MCHC (RBC) [Mass/Vol] 32.9 g/dL Normal 32-36 [facility] Comment on above: Performed By: #### L 100.0100, L500.4050 ####[facility] [address] [place], [address] MCV (RBC) [Entitic vol] 97.7 fL Normal 81-99 [facility] Comment on above: Performed By: #### L 100.0100, L500.4050 ####[facility] [address] [place], [address] Monocytes/100 WBC (Bld) 9.8 % Normal 0-10 [facility] Comment on above: Performed By: #### L 100.0100, L500.4050 ####[facility] [address] [place], [address] Neutrophils/100 WBC (Bld) 54.9 % Normal 47-[address] [facility] Comment on above: Performed By: #### L 100.0100, L500.4050 ####[facility] [address] [place], [address] Nucleated RBC (Bld) [#/Vol] 0 10*3/uL Normal 0-[address] [facility] Comment on above: Performed By: #### L 100.0100, L500.4050 ####[facility] [address] [place], [address] Platelet mean volume (Bld) [Entitic vol] 10.4 fL Normal 6.2-12.[address] [facility] Comment on above: Performed By: #### L 100.0100, L500.4050 ####[facility] [address] [place], [address] Platelets (Bld) [#/Vol] 248 10*3/uL Normal 150-[address] [facility] Comment on above: Performed By: #### L 100.0100, L500.4050 ####[facility] [address] [place], [address] RBC (Bld) [#/Vol] 3.95 10*6/uL Low 4.2-5.4 [facility] Comment on above: Performed By: #### L 100.0100, L500.4050 ####[facility] [address] [place], [address] RDW SD 48.3 fl High 35.1-43.[address] [facility] Comment on above: Performed By: #### L 100.0100, L500.4050 ####[facility] [address] [place], [address] WBC (Bld) [#/Vol] 6.9 10*3/uL Normal 4.4-11.0 [facility] Comment on above: Performed By: #### L 100.0100, L500.4050 ####[facility] [address] [place], [address] Carbon dioxide measurementOr dered By: Maria Liriano on 06-21-2024 CO2 [Moles/Vol] 27.0 mmol/L 21.0-32.[address] [facility] Chloride measurementOrdered By: Maria Liriano on 06-21-2024 Chloride [Moles/Vol] 104 mmol/L 98-107 [facility] Comprehensive Metabolic Prof ilon 06-21-2024 Albumin [Mass/Vol] 3.6 g/dL Normal 3.2-5.0 [facility] Comment on above: Performed By: #### L 100.0100, L500.4050 ####[facility] [address] [place], [address] Albumin/Globulin [Mass ratio] 0.9 {ratio} Normal 0.9-2.[address] [facility] Comment on above: Performed By: #### L 100.0100, L500.4050 ####[facility] [address] [place], [address] ALK P 83 U/L Normal 45-[address] [facility] Comment on above: Performed By: #### L 100.0100, L500.4050 ####[facility] [address] [place], [address] ALT [Catalytic activity/Vol] 34 U/L Normal 13-[address] [facility] Comment on above: Performed By: #### L 100.0100, L500.4050 ####[facility] [address] [place], [address] AST [Catalytic activity/Vol] 18 U/L Normal 15-[address] [facility] Comment on above: Performed By: #### L 100.0100, L500.4050 ####[facility] [address] [place], [address] Bilirubin [Mass/Vol] 0.30 mg/dL Normal 0.20-1.00 [facility] Comment on above: Result Comment: For patients on eltrombopag therapy, use of Dimension [place] TBIL is not recommended. Performed By: #### L 100.0100, L500.4050 ####[facility] [address] [place], [address] BUN/CRE 11.6 RATIO Normal 10-[address] [facility] Comment on above: Performed By: #### L 100.0100, L500.4050 ####[facility] [address] [place], [address] CA,Total 8.7 mg/dL Normal 8.5-10.[address] [facility] Comment on above: Performed By: #### L 100.0100, L500.4050 ####[facility] [address] [place], [address] Chloride [Moles/Vol] 104 mmol/L Normal 98-107 [facility] Comment on above: Performed By: #### L 100.0100, L500.4050 ####[facility] [address] [place], [address] CO2 [Moles/Vol] 27.0 mmol/L Normal 21.0-32.[address] [facility] Comment on above: Performed By: #### L 100.0100, L500.4050 ####[facility] [address] [place], [address] Creatinine [Mass/Vol] 0.86 mg/dL Normal 0.55-1.02 [facility] Comment on above: Result Comment: The validity of the calculated GFR GFRAA in patients over 70 years has not been determined. Clinical correlation is essential. Performed By: #### L 100.0100, L500.4050 ####[facility] [address] [place], [address] EST GFR - AA 92 mL/min Normal >[address] [facility] Comment on above: Result Comment: Afri can Mauritian GFR Calc Performed By: #### L 100.0100, L500.4050 ####[facility] [address] [place], [address] GAP 8 Normal 5-[address] [facility] Comment on above: Performed By: #### L 100.0100, L500.4050 ####[facility] [address] [place], [address] GFR/1.73 sq M.predicted among non-blacks MDRD (S/P/Bld) [Vol rate/Area] 76 mL/min/{1.73_m2} Normal >[address] [facility] Comment on above: Result Comment: Non- GFR Calc Performed By: #### L 100.0100, L500.4050 ####[facility] [address] [place], [address] Globulin (S) [Mass/Vol] 3.9 g/dL Normal 2.2-4.2 [facility] Comment on above: Performed By: #### L 100.0100, L500.4050 ####[facility] [address] [place], [address] Glucose [Mass/Vol] 98 mg/dL Normal 74-106 [facility] Comment on above: Performed By: #### L 100.0100, L500.4050 ####[facility] [address] [place], [address] Potassium [Moles/Vol] 4.1 mmol/L Normal 3.5-5.1 [facility] Comment on above: Performed By: #### L 100.0100, L500.4050 ####[facility] [address] [place], [address] Sodium [Moles/Vol] 138 mmol/L Normal 136-145 [facility] Comment on above: Performed By: #### L 100.0100, L500.4050 ####[facility] [address] [place], [address] T PROT 7.5 g/dL Normal 6.4-8.[address] [facility] Comment on above: Performed By: #### L 100.0100, L500.4050 ####[facility] [address] [place], [address] Urea nitrogen [Mass/Vol] 10 mg/dL Normal 7-[address] [facility] Comment on above: Performed By: #### L 100.0100, L500.4050 ####[facility] [address] [place], [address] Eosinophil percentageOrdered By: Maria Liriano on 06-21-2024 Eosinophils/100 WBC (Bld) 1.6 % 0-[address] [facility] Erythrocyte distribution wid th ratioOrdered By: Maria Liriano on 06-21-2024 Erythrocyte distribution width (RBC) [Ratio] 13.6 % 11.6-14.[address] [facility] Erythrocyte distribution wid th standard deviationOrdered By: Maria Liriano on 06-21-2024 Erythrocyte distribution width (RBC) [Entitic vol] 48.3 fL High 35.1-43.[address] [facility] Erythrocyte distribution width (RBC) [Ratio] 48.3 fl High 35.1-43.[address] [facility] Estimated glomerular filtrat ion rate (GFR) AmericanOrdered By: Maria Liriano on 06-21-2024 Estimated GFR (MDRD) Amer 92 mL/min >[address] [facility] Comment on above: GFR Calc Glomerular filtration rate ( GFR) estimationOrdered By: Maria Liriano on 06-21-2024 Estimated GFR (MDRD) Non-Af Amer 76 mL/min >[address] [facility] Comment on above: Non- GFR Calc GFR/1.73 sq M.predicted among non-blacks MDRD (S/P/Bld) [Vol rate/Area] 76 mL/min/{1.73_m2} >[address] [facility] Comment on above: Non- GFR Calc Glucose measurementOrdered B y: Maria Liriano on 06-21-2024 Glucose [Mass/Vol] 98 mg/dL 74-106 [facility] Hematocrit Auto (Bld) [Volum e fraction]Ordered By: Maria Liriano on 06-21-2024 Hematocrit (Bld) [Volume fraction] 38.6 % 37-[address] [facility] Hemoglobin measurementOrdere d By: Maria Liriano on 06-21-2024 Hemoglobin (Bld) [Mass/Vol] 12.7 g/dL 12.0-15.[address] [facility] Immature granulocytes/100 WB C Auto (Bld)Ordered By: Maria Liriano on 06-21-2024 Immature granulocytes/100 WBC (Bld) 0.100 % 0.0-0.[address] [facility] Comment on above: IG% - Immature Granu locytes (promyelocytes, myelocytes and metamyelocytes) > 1% indicates that a LEFT SHIFT is Present. Laboratory - Chemistry and C hemistry - challengeOrdered By: Maria Liriano on 06-21-2024 AST [Catalytic activity/Vol] 18 U/L 15-[address] [facility] Lymphocytes Auto (Unsp spec) [#/Vol]Ordered By: Maria Liriano on 06-21-2024 Lymphocytes (Bld) [#/Vol] 2.27 10*3/uL 0.83-4.[address] [facility] Lymphocytes/100 WBC Auto (Un sp spec)Ordered By: Maria Liriano on 06-21-2024 Lymphocytes/100 WBC (Bld) 33.0 % 19-[address] [facility] MCV (mean corpuscular volume ) determinationOrdered By: Maria Liriano on 06-21-2024 MCV (RBC) [Entitic vol] 97.7 fL 81-99 [facility] Mean corpuscular hemoglobin (MCH) determinationOrdered By: Maria Liriano on 06-21-2024 MCH (RBC) [Entitic mass] 32.2 pg High 27.0-32.[address] [facility] Mean corpuscular hemoglobin concentration (MCHC) determinationOrdered By: Maria Liriano on 06-21-2024 MCHC (RBC) [Mass/Vol] 32.9 g/dL 32-36 [facility] Mean platelet volume determi nationOrdered By: Maria Liriano on 06-21-2024 Platelet mean volume (Bld) [Entitic vol] 10.4 fL 6.2-12.[address] [facility] Monocyte percentageOrdered B y: Maria Liriano on 06-21-2024 Monocytes/100 WBC (Bld) 9.8 % 0-10 [facility] Neutrophil percentageOrdered By: Maria Liriano on 06-21-2024 Neutrophils/100 WBC (Bld) 54.9 % 47-[address] [facility] Nucleated red blood cell per centageOrdered By: Maria Liriano on 06-21-2024 Nucleated RBC/100 WBC (Bld) [Ratio] 0 % 0-[address] [facility] Platelet countOrdered By: Sheng Liriano on 06-21-2024 Platelets (Bld) [#/Vol] 248 10*3/uL 150-[address] [facility] Potassium measurementOrdered By: Maria Liriano on 06-21-2024 Potassium [Moles/Vol] 4.1 mmol/L 3.5-5.1 [facility] RBC Auto (Bld) [#/Vol]Ordere d By: Maria Liriano on 06-21-2024 RBC (Bld) [#/Vol] 3.95 10*6/uL Low 4.2-5.4 [facility] Serum anion gap measurementO rdered By: Maria Liriano on 06-21-2024 Anion gap [Moles/Vol] 8 mmol/L 5-15 [facility] Serum globulin measurementOr dered By: Maria Liriano on 06-21-2024 Globulin (S) [Mass/Vol] 3.9 g/dL 2.2-4.2 [facility] Serum or plasma alanine jordan otransferase (ALT) measurementOrdered By: Maria Liriano on 06-21-2024 ALT [Catalytic activity/Vol] 34 U/L 13-[address] [facility] Serum or plasma albumin chey urement (mass/volume)Ordered By: Maria Liriano on 06-21-2024 Albumin [Mass/Vol] 3.6 g/dL 3.2-5.0 [facility] Serum or plasma alkaline yony sphatase measurementOrdered By: Maria Liriano on 06-21-2024 ALP [Catalytic activity/Vol] 83 U/L 45-[address] [facility] Serum or plasma calcium chey urement (mass/volume)Ordered By: Maria Liriano on 06-21-2024 Calcium [Mass/Vol] 8.7 mg/dL 8.5-10.1 [facility] Serum or plasma creatinine m easurement (mass/volume)Ordered By: Maria Liriano on 06-21-2024 Creatinine [Mass/Vol] 0.86 mg/dL 0.55-1.02 [facility] Comment on above: The validity of the calculated GFR & GFRAA in patients over 70 years has not been determined. Clinical correlation is essential. Serum or plasma urea nitroge n measurement (mass/volume)Ordered By: Maria Liriano on 06-21-2024 Urea nitrogen [Mass/Vol] 10 mg/dL 7-[address] [facility] Sodium levelOrdered By: Elana Liriano on 06-21-2024 Sodium [Moles/Vol] 138 mmol/L 136-145 [facility] Total proteinOrdered By: Jersey Liriano on 06-21-2024 Protein [Mass/Vol] 7.5 g/dL 6.4-8.2 [facility] White blood cell (WBC) count Ordered By: Maria Liriano on 06-21-2024 WBC (Bld) [#/Vol] 6.9 10*3/uL 4.4-11.0 [facility] CBC W/Diff, Automatedon 03-10 Absolute Lymph 2.23 X10 3/uL Normal 0.83-4.[address] [facility] Comment on above: Performed By: #### L 100.0100, L500.4050 ####[facility] [address] [place], [address] Absolute Neut 5.2 X10 3/uL Normal 2.0-7.[address] [facility] Comment on above: Performed By: #### L 100.0100, L500.4050 ####[facility] [address] [place], [address] Basophils/100 WBC (Bld) 0.7 % Normal 0-1 [facility] Comment on above: Performed By: #### L 100.0100, L500.4050 ####[facility] [address] [place], [address] Eosinophils/100 WBC (Bld) 1.7 % Normal 0-[address] [facility] Comment on above: Performed By: #### L 100.0100, L500.4050 ####[facility] [address] [place], [address] Erythrocyte distribution width (RBC) [Ratio] 12.7 % Normal 11.6-14.[address] [facility] Comment on above: Performed By: #### L 100.0100, L500.4050 ####[facility] [address] [place], [address] Hematocrit (Bld) [Volume fraction] 41.7 % Normal 37-[address] [facility] Comment on above: Performed By: #### L 100.0100, L500.4050 ####[facility] [address] [place], [address] Hemoglobin (Bld) [Mass/Vol] 13.5 g/dL Normal 12.0-15.[address] [facility] Comment on above: Performed By: #### L 100.0100, L500.4050 ####[facility] [address] [place], [address] IG% 0.200 Normal 0.0-0.[address] [facility] Comment on above: Result Comment: IG% - Immature Granulocytes (promyelocytes, myelocytes and metamyelocytes) > 1% indicates that a LEFT SHIFT is Present. Performed By: #### L 100.0100, L500.4050 ####[facility] [address] [place], [address] Lymphocytes/100 WBC (Bld) 27.1 % Normal 19-[address] [facility] Comment on above: Performed By: #### L 100.0100, L500.4050 ####[facility] [address] [place], [address] MCH (RBC) [Entitic mass] 31.9 pg Normal 27.0-32.[address] [facility] Comment on above: Performed By: #### L 100.0100, L500.4050 ####[facility] [address] [place], [address] MCHC (RBC) [Mass/Vol] 32.4 g/dL Normal 32-36 [facility] Comment on above: Performed By: #### L 100.0100, L500.4050 ####[facility] [address] [place], [address] MCV (RBC) [Entitic vol] 98.6 fL Normal 81-99 [facility] Comment on above: Performed By: #### L 100.0100, L500.4050 ####[facility] [address] [place], [address] Monocytes/100 WBC (Bld) 7.4 % Normal 0-10 [facility] Comment on above: Performed By: #### L 100.0100, L500.4050 ####[facility] [address] [place], [address] Neutrophils/100 WBC (Bld) 62.9 % Normal 47-[address] [facility] Comment on above: Performed By: #### L 100.0100, L500.4050 ####[facility] [address] [place], [address] Nucleated RBC (Bld) [#/Vol] 0 10*3/uL Normal 0-[address] [facility] Comment on above: Performed By: #### L 100.0100, L500.4050 ####[facility] [address] [place], [address] Platelet mean volume (Bld) [Entitic vol] 10.2 fL Normal 6.2-12.[address] [facility] Comment on above: Performed By: #### L 100.0100, L500.4050 ####[facility] [address] [place], [address] Platelets (Bld) [#/Vol] 248 10*3/uL Normal 150-[address] [facility] Comment on above: Performed By: #### L 100.0100, L500.4050 ####[facility] [address] [place], [address] RBC (Bld) [#/Vol] 4.23 10*6/uL Normal 4.2-5.4 [facility] Comment on above: Performed By: #### L 100.0100, L500.4050 ####[facility] [address] [place], [address] RDW SD 45.6 fl High 35.1-43.[address] [facility] Comment on above: Performed By: #### L 100.0100, L500.4050 ####[facility] [address] [place], [address] WBC (Bld) [#/Vol] 8.2 10*3/uL Normal 4.4-11.0 [facility] Comment on above: Performed By: #### L 100.0100, L500.4050 ####[facility] [address] [place], [address] Comprehensive Metabolic Prof ilon 03-21-2024 Albumin [Mass/Vol] 4.0 g/dL Normal 3.2-5.0 [facility] Comment on above: Performed By: #### L 100.0100, L500.4050 ####[facility] [address] [place], [address] Albumin/Globulin [Mass ratio] 1.1 {ratio} Normal 0.9-2.[address] [facility] Comment on above: Performed By: #### L 100.0100, L500.4050 ####[facility] [address] [place], [address] ALK P 78 U/L Normal 45-[address] [facility] Comment on above: Performed By: #### L 100.0100, L500.4050 ####[facility] [address] [place], [address] ALT [Catalytic activity/Vol] 38 U/L Normal 13-[address] [facility] Comment on above: Performed By: #### L 100.0100, L500.4050 ####[facility] [address] [place], [address] AST [Catalytic activity/Vol] 19 U/L Normal 15-[address] [facility] Comment on above: Performed By: #### L 100.0100, L500.4050 ####[facility] [address] [place], [address] Bilirubin [Mass/Vol] 0.40 mg/dL Normal 0.20-1.00 [facility] Comment on above: Result Comment: For patients on eltrombopag therapy, use of Dimension [place] TBIL is not recommended. Performed By: #### L 100.0100, L500.4050 ####[facility] [address] [place], [address] BUN/CRE 14.4 RATIO Normal 10-[address] [facility] Comment on above: Performed By: #### L 100.0100, L500.4050 ####[facility] [address] [place], [address] CA,Total 9.1 mg/dL Normal 8.5-10.[address] [facility] Comment on above: Performed By: #### L 100.0100, L500.4050 ####[facility] [address] [place], [address] Chloride [Moles/Vol] 104 mmol/L Normal 98-107 [facility] Comment on above: Performed By: #### L 100.0100, L500.4050 ####[facility] [address] [place], [address] CO2 [Moles/Vol] 26.0 mmol/L Normal 21.0-32.[address] [facility] Comment on above: Performed By: #### L 100.0100, L500.4050 ####[facility] [address] [place], [address] Creatinine [Mass/Vol] 0.90 mg/dL Normal 0.55-1.02 [facility] Comment on above: Result Comment: The validity of the calculated GFR GFRAA in patients over 70 years has not been determined. Clinical correlation is essential. Performed By: #### L 100.0100, L500.4050 ####[facility] [address] [place], [address] EST GFR - AA 87 mL/min Normal >[address] [facility] Comment on above: Result Comment: Afri can Mauritian GFR Calc Performed By: #### L 100.0100, L500.4050 ####[facility] [address] [place], [address] GAP 6 Normal 5-[address] [facility] Comment on above: Performed By: #### L 100.0100, L500.4050 ####[facility] [address] [place], [address] GFR/1.73 sq M.predicted among non-blacks MDRD (S/P/Bld) [Vol rate/Area] 72 mL/min/{1.73_m2} Normal >[address] [facility] Comment on above: Result Comment: Non- GFR Calc Performed By: #### L 100.0100, L500.4050 ####[facility] [address] [place], [address] Globulin (S) [Mass/Vol] 3.7 g/dL Normal 2.2-4.2 [facility] Comment on above: Performed By: #### L 100.0100, L500.4050 ####[facility] [id number] [place], [address] Glucose [Mass/Vol] 93 mg/dL Normal 74-106 [facility] Comment on above: Performed By: #### L 100.0100, L500.4050 ####[facility] [id number] [place], [address] Potassium [Moles/Vol] 4.1 mmol/L Normal 3.5-5.1 [facility] Comment on above: Performed By: #### L 100.0100, L500.4050 ####[facility] [id number] [place], [address] Sodium [Moles/Vol] 136 mmol/L Normal 136-145 [facility] Comment on above: Performed By: #### L 100.0100, L500.4050 ####[facility] [id number] [place], [address] T PROT 7.7 g/dL Normal 6.4-8.[address] [facility] Comment on above: Performed By: #### L 100.0100, L500.4050 ####[facility] [id number] [place], [address] Urea nitrogen [Mass/Vol] 13 mg/dL Normal 7-[address] [facility] Comment on above: Performed By: #### L 100.0100, L500.4050 ####[facility] [address] [place], [address] CBC + DIFFon 01-06-2024 Baso # 0.02 x10EE3/UL Normal 0.00 - 0.10 [facility] Comment on above: Performed By: #### 2 31276 #### [facility],[address] [place] [address] 77263 Basophils/100 WBC (Bld) 0.3 % Normal 0.0 - 2.0 [facility] Comment on above: Performed By: #### 2 38706 #### [facility],[address] [place] [address] 57438 CBC + DIFF Normal [facility] Comment on above: Result Comment: CBC- COMPLETE BLOOD COUNT Performed By: #### 2 76206 #### [facility],[address] [place] [address] 97036 EO # 0.12 x10EE3/UL Normal 0.00 - 0.50 [facility] Comment on above: Performed By: #### 2 98431 #### [facility],[address] [place] [address] 18387 Eosinophils/100 WBC (Bld) 1.8 % Normal 0.0 - 7.0 [facility] Comment on above: Performed By: #### 2 39893 #### [facility],[address] [place] [address] 03506 Erythrocyte distribution width (RBC) [Ratio] 13.2 % Normal 12.0 - 15.6 [facility] Comment on above: Performed By: #### 2 12356 #### [facility],[address] [place] [address] 37684 Hematocrit (Bld) [Volume fraction] 39.9 % Normal 34.0 - 46.0 [facility] Comment on above: Performed By: #### 2 37882 #### [facility],[address] [place] [address] Hemoglobin (Bld) [Mass/Vol] 13.4 g/dL Normal 12.0 - 16.0 [facility] Comment on above: Performed By: #### 2 58757 #### [facility],[address] [place] [address] Lymph # 2.00 x10EE3/UL Normal 0.80 - 2.80 [facility] Comment on above: Performed By: #### 2 53015 #### [facility],[address] [place] [address] Lymphocytes/100 WBC (Bld) 29.8 % Normal 20.0 - 45.0 [facility] Comment on above: Performed By: #### 2 10869 #### [facility],[address] [place] [address] MANUAL DIFF N/A Normal [facility] Comment on above: Performed By: #### 2 96234 #### [facility],[address] [place] [address] MCH (RBC) [Entitic mass] 32 pg Normal 27 - 33 [facility] Comment on above: Performed By: #### 2 32526 #### [facility],[address] [place] [address] MCHC 34 X10 3 Normal 32 - 36 [facility] Comment on above: Performed By: #### 2 97033 #### [facility],[address] [place], [place] [id number] MCV (RBC) [Entitic vol] 96 fL Normal 80 - 99 [facility] Comment on above: Performed By: #### 2 26893 #### [facility],[address],[place] [address] [place] # 0.52 x10EE3/UL Normal 0.20 - 1.00 [facility] Comment on above: Performed By: #### 2 49614 #### [facility],[address] [place] [address] 57181 MONOS % 7.8 % Normal 0.0 - 10.0 [facility] Comment on above: Performed By: #### 2 69656 #### [facility],[address] [place] [address] Morphology Deonte (Bld) [Interp] N/A Normal [facility] Comment on above: Performed By: #### 2 11523 #### [facility],[address] [place] [address] Neut # 4.04 x10EE3/UL Normal 1.50 - 7.10 [facility] Comment on above: Performed By: #### 2 16477 #### [place] [address] Neutrophils/100 WBC (Bld) 60.3 % Normal 46.0 - 76.0 [facility] Comment on above: Performed By: #### 2 20957 #### [place] [address] PLATELET 267 x10EE3/UL Normal 150 - 450 [facility] Comment on above: Performed By: #### 2 75405 #### [place] [address] Platelet mean volume (Bld) [Entitic vol] 7.3 fL Normal 6.6 - 10.5 [facility] Comment on above: Result Comment: AUTO MATED DIFFERENTIAL Performed By: #### 2 86840 #### [place] [address] RBC 4.18 x 10EE6/UL Normal 4.10 - 5.30 [facility] Comment on above: Performed By: #### 2 62189 #### [facility],[address] [place] [address] 89999 WBC 6.7 x 10EE3/UL Normal 4.5 - 10.8 [facility] Comment on above: Performed By: #### 2 61845 #### [facility],[address] [place] [address] 37948 CMP with eGFRon 01-06-2024 AGE 43 years Normal [facility] Comment on above: Performed By: #### 2 38441 #### [facility],[address] [place] [address] 29321 Albumin [Mass/Vol] 3.7 g/dL Normal 3.4 - 5.0 [facility] Comment on above: Performed By: #### 2 39642 #### [facility],[address] [place] [address] 21534 Albumin/Globulin [Mass ratio] 1.0 {ratio} Normal 0.9 - 1.6 [facility] Comment on above: Performed By: #### 2 55411 #### [facility],[address] [place] [address] 49135 ALK PHOS 91 U/L Normal 46 - 116 [facility] Comment on above: Performed By: #### 2 63313 #### [facility],[address] [place] [address] 82860 ALT [Catalytic activity/Vol] 34 U/L Normal 16 - 63 [facility] Comment on above: Performed By: #### 2 07662 #### [facility],[address] [place] [address] 41961 Anion gap [Moles/Vol] 9 mmol/L Low 10 - 20 [facility] Comment on above: Performed By: #### 2 16620 #### [facility],[address] [place] [address] 19271 AST [Catalytic activity/Vol] 20 U/L Normal 13 - 39 [facility] Comment on above: Performed By: #### 2 55468 #### [facility],[address] [place] [address] 59392 B/C RATIO 15 ratio Normal 0 - 30 [facility] Comment on above: Performed By: #### 2 20735 #### [facility],[address] [place] [address] 37763 Bilirubin [Mass/Vol] 0.4 mg/dL Normal 0.2 - 1.0 [facility] Comment on above: Performed By: #### 2 95663 #### [facility],[address] [place] [address] 11293 Calcium [Mass/Vol] 8.7 mg/dL Normal 8.5 - 10.1 [facility] Comment on above: Performed By: #### 2 46398 #### [facility],[address] [place] [address] 85410 Chloride [Moles/Vol] 102 mmol/L Normal 98 - 107 [facility] Comment on above: Performed By: #### 2 75930 #### [facility],[address] [place] [address] 56868 CMP with eGFR Normal [facility] Comment on above: Result Comment: COMP REHENSIVE METABOLIC PANEL Performed By: #### 2 79307 #### [facility],[address] [place] [address] 85883 CO2 [Moles/Vol] 29.9 mmol/L Normal 21.0 - 32.0 [facility] Comment on above: Performed By: #### 2 82000 #### [facility],[address] [place] [address] 43670 Creatinine [Mass/Vol] 0.89 mg/dL Normal 0.55 - 1.02 [facility] Comment on above: Performed By: #### 2 07791 #### [facility],[address] [place] [address] 06278 GFR/1.73 sq M.predicted among non-blacks MDRD (S/P/Bld) [Vol rate/Area] mL/min/{1.73_m2} Normal 60 - 999 [facility] Comment on above: Performed By: #### 2 74278 #### [facility],[address] [place] [address] 84945 Result Comment: ACCO RDING TO THE NATIONAL KIDNEY DISEASE EDUCATION PROGRAM(NKDE), A NORMAL eGFR IS A VALUE GREATER THAN OR EQUAL TO 60 ML/MIN/1.73 SQ METERS. CHRONIC KIDNEY DISEASE: <60mL/MIN/1.73 SQ METERS KIDNEY FAILURE: <15mL/MIN/1.73 SQ METERS THIS TEST SHOULD ONLY BE USED FOR PATIENTS 18 YEARS OF AGE AND OLDER. Globulin (S) [Mass/Vol] 3.8 g/dL Normal 1.5 - 3.8 [facility] Comment on above: Performed By: #### 2 46145 #### [facility],[address] [place] [address] 53599 Glucose [Mass/Vol] 94 mg/dL Normal 74 - 106 [facility] Comment on above: Performed By: #### 2 86026 #### [facility],[address] [place] [address] 67438 Potassium [Moles/Vol] 4.0 mmol/L Normal 3.5 - 5.1 [facility] Comment on above: Performed By: #### 2 15379 #### [facility],[address] [place] [address] 15950 Protein [Mass/Vol] 7.5 g/dL Normal 6.4 - 8.2 [facility] Comment on above: Performed By: #### 2 87668 #### [facility],[address] [place] [address] 89886 Sodium [Moles/Vol] 137 mmol/L Normal 136 - 145 [facility] Comment on above: Performed By: #### 2 65692 #### [facility],[address] [place] [address] 03737 Urea nitrogen [Mass/Vol] 13 mg/dL Normal 7 - 18 [facility] Comment on above: Performed By: #### 2 47312 #### [facility],[address] [place] [address] CBC + DIFFon 12-01-2023 Baso # 0.03 x10EE3/UL Normal 0.00 - 0.10 [facility] Comment on above: Performed By: #### 2 99511 #### [facility],[address] [place], [place] [address] Basophils/100 WBC (Bld) 0.4 % Normal 0.0 - 2.0 [facility] Comment on above: Performed By: #### 2 67258 #### [facility],[address] [place] [address] CBC + DIFF Normal [facility] Comment on above: Result Comment: CBC- COMPLETE BLOOD COUNT Performed By: #### 2 63586 #### [facility],[address] [place] [address] EO # 0.07 x10EE3/UL Normal 0.00 - 0.50 [facility] Comment on above: Performed By: #### 2 91836 #### [facility],[address] [place] [address] Eosinophils/100 WBC (Bld) 0.8 % Normal 0.0 - 7.0 [facility] Comment on above: Performed By: #### 2 52035 #### [facility],[address] [place] [address] Erythrocyte distribution width (RBC) [Ratio] 13.4 % Normal 12.0 - 15.6 [facility] Comment on above: Performed By: #### 2 64509 #### [facility],[address] [place] [address] Hematocrit (Bld) [Volume fraction] 41.3 % Normal 34.0 - 46.0 [facility] Comment on above: Performed By: #### 2 40506 #### [facility],[address] [place] [address] Hemoglobin (Bld) [Mass/Vol] 13.9 g/dL Normal 12.0 - 16.0 [facility] Comment on above: Performed By: #### 2 54062 #### [facility],[address] [place] [address] Lymph # 1.96 x10EE3/UL Normal 0.80 - 2.80 [facility] Comment on above: Performed By: #### 2 70273 #### [facility],[address] [place] [address] Lymphocytes/100 WBC (Bld) 22.9 % Normal 20.0 - 45.0 [facility] Comment on above: Performed By: #### 2 73804 #### [facility],[address] [place] [address] MANUAL DIFF N/A Normal [facility] Comment on above: Performed By: #### 2 05030 #### [facility],[address] [place] [address] MCH (RBC) [Entitic mass] 32 pg Normal 27 - 33 [facility] Comment on above: Performed By: #### 2 39185 #### [facility],[address] [place] [address] MCHC 34 X10 3 Normal 32 - 36 [facility] Comment on above: Performed By: #### 2 54360 #### [facility],[address] [place] [address] MCV (RBC) [Entitic vol] 96 fL Normal 80 - 99 [facility] Comment on above: Performed By: #### 2 81376 #### [facility],[address] [place] [address] [place] # 0.51 x10EE3/UL Normal 0.20 - 1.00 [facility] Comment on above: Performed By: #### 2 91918 #### [facility],[address],[place] [address] MONOS % 5.9 % Normal 0.0 - 10.0 [facility] Comment on above: Performed By: #### 2 08577 #### [facility],[address] [place] [address] 33734 Morphology Deonte (Bld) [Interp] N/A Normal [facility] Comment on above: Performed By: #### 2 80672 #### [facility],[address] [place] [address] 44470 Neut # 5.97 x10EE3/UL Normal 1.50 - 7.10 [facility] Comment on above: Performed By: #### 2 11885 #### [address] [address] Neutrophils/100 WBC (Bld) 70.0 % Normal 46.0 - 76.0 [facility] Comment on above: Performed By: #### 2 40472 #### [facility],[address] [place] [address] 14307 PLATELET 265 x10EE3/UL Normal 150 - 450 [facility] Comment on above: Performed By: #### 2 27459 #### [facility],[address] [place] [address] 76402 Platelet mean volume (Bld) [Entitic vol] 7.8 fL Normal 6.6 - 10.5 [facility] Comment on above: Result Comment: AUTO MATED DIFFERENTIAL Performed By: #### 2 02636 #### [address] [address] RBC 4.29 x 10EE6/UL Normal 4.10 - 5.30 [facility] Comment on above: Performed By: #### 2 72497 #### [facility],[address] [place] [address] 21844 WBC 8.5 x 10EE3/UL Normal 4.5 - 10.8 [facility] Comment on above: Performed By: #### 2 59459 #### [facility],[address] [place] [address] 17325 CMP with eGFRon 12-01-2023 AGE 43 years Normal [facility] Comment on above: Performed By: #### 2 77320 #### [facility],[address] [place] [address] 71976 Albumin [Mass/Vol] 3.6 g/dL Normal 3.4 - 5.0 [facility] Comment on above: Performed By: #### 2 54329 #### [facility],[address] [place] [address] 23276 Albumin/Globulin [Mass ratio] 1.0 {ratio} Normal 0.9 - 1.6 [facility] Comment on above: Performed By: #### 2 46803 #### [facility],[address] [place] [address] 79123 ALK PHOS 83 U/L Normal 46 - 116 [facility] Comment on above: Performed By: #### 2 90378 #### [facility],[address] [place] [address] 97113 ALT [Catalytic activity/Vol] 32 U/L Normal 16 - 63 [facility] Comment on above: Performed By: #### 2 63916 #### [facility],[address] [place] [address] 31566 Anion gap [Moles/Vol] 10 mmol/L Normal 10 - 20 [facility] Comment on above: Performed By: #### 2 46637 #### [facility],[address] [place] [address] 53444 AST [Catalytic activity/Vol] 21 U/L Normal 13 - 39 [facility] Comment on above: Performed By: #### 2 28880 #### [facility],[address] [place] [address] 43055 B/C RATIO 12 ratio Normal 0 - 30 [facility] Comment on above: Performed By: #### 2 13921 #### [facility],[address] [place] [address] 42112 Bilirubin [Mass/Vol] 0.4 mg/dL Normal 0.2 - 1.0 [facility] Comment on above: Performed By: #### 2 52561 #### [facility],[address] [place] [address] 90444 Calcium [Mass/Vol] 8.6 mg/dL Normal 8.5 - 10.1 [facility] Comment on above: Performed By: #### 2 11498 #### [facility],[address] [place] [address] 76128 Chloride [Moles/Vol] 102 mmol/L Normal 98 - 107 [facility] Comment on above: Performed By: #### 2 54829 #### [facility],[address] [place] [address] 35409 CMP with eGFR Normal [facility] Comment on above: Result Comment: COMP REHENSIVE METABOLIC PANEL Performed By: #### 2 36781 #### [facility],[address] [place] [address] 49131 CO2 [Moles/Vol] 29.0 mmol/L Normal 21.0 - 32.0 [facility] Comment on above: Performed By: #### 2 20651 #### [facility],[address] [place] [address] 26547 Creatinine [Mass/Vol] 0.90 mg/dL Normal 0.55 - 1.02 [facility] Comment on above: Performed By: #### 2 89258 #### [facility],[address] [place] [address] 27846 GFR/1.73 sq M.predicted among non-blacks MDRD (S/P/Bld) [Vol rate/Area] mL/min/{1.73_m2} Normal 60 - 999 [facility] Comment on above: Performed By: #### 2 09699 #### [facility],[address],[place] [address] Result Comment: ACCO RDING TO THE NATIONAL KIDNEY DISEASE EDUCATION PROGRAM(NKDE), A NORMAL eGFR IS A VALUE GREATER THAN OR EQUAL TO 60 ML/MIN/1.73 SQ METERS. CHRONIC KIDNEY DISEASE: <60mL/MIN/1.73 SQ METERS KIDNEY FAILURE: <15mL/MIN/1.73 SQ METERS THIS TEST SHOULD ONLY BE USED FOR PATIENTS 18 YEARS OF AGE AND OLDER. Globulin (S) [Mass/Vol] 3.7 g/dL Normal 1.5 - 3.8 [facility] Comment on above: Performed By: #### 2 71720 #### [facility],[address] [place] [address] 84789 Glucose [Mass/Vol] 94 mg/dL Normal 74 - 106 [facility] Comment on above: Performed By: #### 2 86217 #### [address] [address] Potassium [Moles/Vol] 4.1 mmol/L Normal 3.5 - 5.1 [facility] Comment on above: Performed By: #### 2 70899 #### [facility],[address] [place] [address] 94518 Protein [Mass/Vol] 7.3 g/dL Normal 6.4 - 8.2 [facility] Comment on above: Performed By: #### 2 02518 #### [facility],[address] [place] [address] 92941 Sodium [Moles/Vol] 137 mmol/L Normal 136 - 145 [facility] Comment on above: Performed By: #### 2 25938 #### [facility],[address] [place] [address] 38902 Urea nitrogen [Mass/Vol] 11 mg/dL Normal 7 - 18 [facility] Comment on above: Performed By: #### 2 56501 #### [facility],[address] [place] [address] 96831 LIPID PROFILEon 12-01-2023 Cholesterol [Mass/Vol] 166 mg/dL Normal 0 - 240 [facility] Comment on above: Performed By: #### 2 85807 #### [facility],[address] [place] [address] 36269 Cholesterol in HDL [Mass/Vol] 75 mg/dL High 40 - 60 [facility] Comment on above: Performed By: #### 2 67795 #### [facility],[address] [place] [address] 43134 Cholesterol in LDL [Mass/Vol] 77 mg/dL Normal 0 - 129 [facility] Comment on above: Performed By: #### 2 78774 #### [facility],[address] [place] [address] 74026 Cholesterol.total/Choles terol in HDL [Mass ratio] 2.2 {ratio} Normal 0.0 - 5.0 [facility] Comment on above: Performed By: #### 2 74032 #### [facility],[address] [place] [address] 59773 Lipid 1996 panel Normal [facility] Comment on above: Result Comment: LIPI D PROFILE Performed By: #### 2 79218 #### [facility],[address] [place] [address] 16610 Triglyceride [Mass/Vol] 72 mg/dL Normal 0 - 150 [facility] Comment on above: Performed By: #### 2 01259 #### [facility],[address] [place] [address] 15478 T4-FREE (FREE THYROXINE)on 0 12-01-2023 Free T4 [Mass/Vol] 0.72 ng/dL Low 0.76 - 1.46 [facility] Comment on above: Result Comment: P otential of falsely elevated results when biotin concentrations are > 10 ng/mL. Performed By: #### 2 62953 #### [facility],[address] [place] [address] 83076 TSHon 12-01-2023 TSH Qn 0.98 m[IU]/L Normal 0.35 - 3.74 [facility] Comment on above: Performed By: #### 2 32784 #### [facility],[address] [place] [address] CBC + DIFFon 07-15-2023 Baso # 0.03 x10EE3/UL Normal 0.00 - 0.10 [facility] Comment on above: Performed By: #### 2 32721 #### [facility],[address] [place] [address] Basophils/100 WBC (Bld) 0.4 % Normal 0.0 - 2.0 [facility] Comment on above: Performed By: #### 2 05694 #### [facility],[address] [place] [address] CBC + DIFF Normal [facility] Comment on above: Result Comment: CBC- COMPLETE BLOOD COUNT Performed By: #### 2 16897 #### [facility],[address] [place] [address] EO # 0.06 x10EE3/UL Normal 0.00 - 0.50 [facility] Comment on above: Performed By: #### 2 79325 #### [facility],[address] [place] [address] Eosinophils/100 WBC (Bld) 0.7 % Normal 0.0 - 7.0 [facility] Comment on above: Performed By: #### 2 17777 #### [facility],[address] [place] [address] Erythrocyte distribution width (RBC) [Ratio] 13.2 % Normal 12.0 - 15.6 [facility] Comment on above: Performed By: #### 2 11032 #### [facility],[address] [place] [address] Hematocrit (Bld) [Volume fraction] 39.8 % Normal 34.0 - 46.0 [facility] Comment on above: Performed By: #### 2 63836 #### [facility],[address] [place], [place] [id number] Hemoglobin (Bld) [Mass/Vol] 13.3 g/dL Normal 12.0 - 16.0 [facility] Comment on above: Performed By: #### 2 61383 #### [facility],[address] [place] [address] Lymph # 2.60 x10EE3/UL Normal 0.80 - 2.80 [facility] Comment on above: Performed By: #### 2 79537 #### [facility],[address] [place] [address] Lymphocytes/100 WBC (Bld) 31.6 % Normal 20.0 - 45.0 [facility] Comment on above: Performed By: #### 2 88765 #### [facility],[address] [place], [place] [id number] MANUAL DIFF N/A Normal [facility] Comment on above: Performed By: #### 2 11695 #### [facility],[address] [place], [place] [id number] MCH (RBC) [Entitic mass] 31 pg Normal 27 - 33 [facility] Comment on above: Performed By: #### 2 52336 #### [facility],[address] [place] [id number] MCHC 34 X10 3 Normal 32 - 36 [facility] Comment on above: Performed By: #### 2 49225 #### [facility],[address] [place] [address]30 MCV (RBC) [Entitic vol] 92 fL Normal 80 - 99 [facility] Comment on above: Performed By: #### 2 56210 #### [facility],[address] [place] [address] [place] # 0.72 x10EE3/UL Normal 0.20 - 1.00 [facility] Comment on above: Performed By: #### 2 28433 #### [facility],[address] [place] [address] MONOS % 8.8 % Normal 0.0 - 10.0 [facility] Comment on above: Performed By: #### 2 00370 #### [facility],[address] [place] [address] 97824 Morphology Deonte (Bld) [Interp] N/A Normal [facility] Comment on above: Performed By: #### 2 40319 #### [facility],[address] [place] [address] 57554 Neut # 4.81 x10EE3/UL Normal 1.50 - 7.10 [facility] Comment on above: Performed By: #### 2 81195 #### [facility],[address] [place] [address] 50388 Neutrophils/100 WBC (Bld) 58.6 % Normal 46.0 - 76.0 [facility] Comment on above: Performed By: #### 2 60885 #### [facility],[address] [place] [address] 54567 PLATELET 287 x10EE3/UL Normal 150 - 450 [facility] Comment on above: Performed By: #### 2 37266 #### [facility],[address] [place] [address] 28045 Platelet mean volume (Bld) [Entitic vol] 8.0 fL Normal 6.6 - 10.5 [facility] Comment on above: Result Comment: AUTO MATED DIFFERENTIAL Performed By: #### 2 68905 #### [facility],[address] [place] [address] 54456 RBC 4.31 x 10EE6/UL Normal 4.10 - 5.30 [facility] Comment on above: Performed By: #### 2 07461 #### [facility],[address] [place] [address] 13246 WBC 8.2 x 10EE3/UL Normal 4.5 - 10.8 [facility] Comment on above: Performed By: #### 2 99804 #### [facility],[address] [place] [address]91 CMP with eGFRon 07-15-2023 AGE 43 years Normal [facility] Comment on above: Performed By: #### 2 53862 #### [facility],[address] [place] [address] 77249 Albumin [Mass/Vol] 3.5 g/dL Normal 3.4 - 5.0 [facility] Comment on above: Performed By: #### 2 53754 #### [facility],[address] [place] [address] 83006 Albumin/Globulin [Mass ratio] 0.9 {ratio} Normal 0.9 - 1.6 [facility] Comment on above: Performed By: #### 2 72299 #### [facility],[address] [place] [address] 98015 ALK PHOS 76 U/L Normal 46 - 116 [facility] Comment on above: Performed By: #### 2 05756 #### [facility],[address] [place] [address] 04574 ALT [Catalytic activity/Vol] 39 U/L Normal 16 - 63 [facility] Comment on above: Performed By: #### 2 74018 #### [facility],[address] [place] [address] 08285 Anion gap [Moles/Vol] 16 mmol/L Normal 10 - 20 [facility] Comment on above: Performed By: #### 2 82027 #### [facility],[address] [place] [address] 99134 AST [Catalytic activity/Vol] 24 U/L Normal 13 - 39 [facility] Comment on above: Performed By: #### 2 00279 #### [facility],[address] [place] [address] 45344 B/C RATIO 17 ratio Normal 0 - 30 [facility] Comment on above: Performed By: #### 2 43357 #### [facility],[address] [place] [address] 68527 Bilirubin [Mass/Vol] 0.4 mg/dL Normal 0.2 - 1.0 [facility] Comment on above: Performed By: #### 2 48299 #### [facility],[address] [place] [address] 12651 Calcium [Mass/Vol] 8.7 mg/dL Normal 8.5 - 10.1 [facility] Comment on above: Performed By: #### 2 91902 #### [facility],[address] [place] [address] 16828 Chloride [Moles/Vol] 104 mmol/L Normal 98 - 107 [facility] Comment on above: Performed By: #### 2 87699 #### [facility],[address] [place] [address]330 CMP with eGFR Normal [facility] Comment on above: Result Comment: COMP REHENSIVE METABOLIC PANEL Performed By: #### 2 67697 #### [facility],[address] [place] [address] 67109 CO2 [Moles/Vol] 25.2 mmol/L Normal 21.0 - 32.0 [facility] Comment on above: Performed By: #### 2 33802 #### [facility],[address] [place] [address] 34965 Creatinine [Mass/Vol] 0.90 mg/dL Normal 0.55 - 1.02 [facility] Comment on above: Performed By: #### 2 72608 #### [facility],[address] [place] [address]306 GFR/1.73 sq M.predicted among non-blacks MDRD (S/P/Bld) [Vol rate/Area] mL/min/{1.73_m2} Normal 60 - 999 [facility] Comment on above: Performed By: #### 2 07076 #### [facility],[address] [place] [address] 9[address]26 Result Comment: ACCO RDING TO THE NATIONAL KIDNEY DISEASE EDUCATION PROGRAM(NKDE), A NORMAL eGFR IS A VALUE GREATER THAN OR EQUAL TO 60 ML/MIN/1.73 SQ METERS. CHRONIC KIDNEY DISEASE: <60mL/MIN/1.73 SQ METERS KIDNEY FAILURE: <15mL/MIN/1.73 SQ METERS THIS TEST SHOULD ONLY BE USED FOR PATIENTS 18 YEARS OF AGE AND OLDER. Globulin (S) [Mass/Vol] 3.9 g/dL High 1.5 - 3.8 [facility] Comment on above: Performed By: #### 2 38574 #### [address] [address] Glucose [Mass/Vol] 106 mg/dL Normal 74 - 106 [facility] Comment on above: Performed By: #### 2 01741 #### [address] [address] Potassium [Moles/Vol] 3.8 mmol/L Normal 3.5 - 5.1 [facility] Comment on above: Performed By: #### 2 47302 #### [facility],[address] [place] [address] 99633 Protein [Mass/Vol] 7.4 g/dL Normal 6.4 - 8.2 [facility] Comment on above: Performed By: #### 2 23293 #### [address] [address] Sodium [Moles/Vol] 141 mmol/L Normal 136 - 145 [facility] Comment on above: Performed By: #### 2 37032 #### [facility],[address] [place] [address] 90063 Urea nitrogen [Mass/Vol] 15 mg/dL Normal 7 - 18 [facility] Comment on above: Performed By: #### 2 90911 #### [address] [address] LABORATORYOrdered By: SYSTEM SYSTEM on 01-19-2023 Albumin BCP dye [Mass/Vol] 3.8 G/dL Invalid Interpretation Code 3.2 - 4.8 G/dL AH ADM SS Albumin/Globulin [Mass ratio] 1.3 {ratio} [...] Invalid Interpretation Code 0.20 - 1.20 mg/dL ADM SS Comment on above: Interpretive Data: [...] 0.0 - 0.7 10^3/mcL AH Workflow SS Eosinophils/100 WBC (Bld) 1.1 % Invalid Interpretation Code 0.0 - 6.0 % AH Workflow SS Erythrocyte distribution width (RBC) [Ratio] 13.4 % Invalid Interpretation Code 11.5 - 15.5 % AH Workflow SS GFR/1.73 sq M.predicted among blacks MDRD (S/P/Bld) [Vol rate/Area] ml/min/1.73sqm Invalid Interpretation Code [facility] Comment on above: Interpretive Data: [...] (S/P/Bld) [Vol rate/Area] ml/min/1.73sqm Invalid Interpretation Code [facility] Comment on above: Interpretive Data: [...] Invalid Interpretation Code 34.0 - 46.0 % Workflow SS Hemoglobin (Bld) [Mass/Vol] 12.7 G/dL [...] Invalid Interpretation Code 80.0 - 99.0 fL AH Workflow SS Monocytes (Bld) [#/Vol] 0.6 103/mcL [...] Invalid Interpretation Code 3.5 - 5.0 mEq/L AH ADM SS Protein [Mass/Vol] 6.7 G/dL Invalid Interpretation Code 5.7 - 8.2 G/dL AH ADM SS Comment on above: Interpretive Data: * *Note - New Reference Range in effect 19 RBC (Bld) [#/Vol] 3.94 106/mcL Invalid Interpretation Code 4.10 - 5.30 10^6/mcL AH Workflow SS Sodium [Moles/Vol] 140 mmol/L Invalid Interpretation Code 136 - 145 mEq/L AH ADM SS Urea nitrogen [Mass/Vol] 11.0 mg/dL [...] 05-25-2022 HCG ( test) Ql (U) Negative [facility] Comment on above: Very dilute urine sp ecimens, as indicated by a low specificgravity, may not contain outreach representative levels of hCG. If is still suspected, a first morning urinespecimen should be collected 48 hours later and tested. Absolute lymphocyte countOrd ered By: Dr. Liriano on 05-19-2022 Lymphocytes Auto (Unsp spec) [#/Vol] 3.05 10*3/uL 0.83-4.[address] [facility] Basophil percentageOrdered B y: Dr. Liriano on 05-19-2022 Basophils/100 WBC (Bld) 0.5 % 0-1 [facility] Bilirubin [Mass/Vol] 0.30 mg/dL 0.20-1.00 [facility] Comment on above: For patients on eltr ombopag therapy, use of Dimension [place] TBIL is not recommended. Chloride [Moles/Vol] 102 mmol/L 98-107 [facility] Eosinophils/100 WBC (Bld) 0.6 % 0-[address] [facility] Glucose [Mass/Vol] 100 mg/dL 74-106 [facility] Comment on above: Fasting Glucose resu lt from 100 to 125 mg/dL suggests IMPAIRED HOMEOSTASIS per A.D.A. criteria. Neutrophils (Bld) [#/Vol] 6.1 10*3/uL 2.0-7.[address] [facility] Neutrophils/100 WBC (Bld) 60.9 % 47-[address] [facility] Potassium [Moles/Vol] 3.9 mmol/L 3.5-5.1 [facility] Protein [Mass/Vol] 7.4 g/dL 6.4-8.2 [facility] Sodium [Moles/Vol] 138 mmol/L 136-145 [facility] WBC (Bld) [#/Vol] 10.0 10*3/uL 4.4-11.0 [facility] Blood erythrocytes count (nu mber/volume)Ordered By: Dr. Liriano on 05-19-2022 RBC (Bld) [#/Vol] 4.03 10*6/uL 4.2-5.4 [facility] Blood hemoglobin measurement (mass/volume)Ordered By: Dr. Liriano on 05-19-2022 Hemoglobin (Bld) [Mass/Vol] 13.2 g/dL 12.0-15.[address] [facility] Blood lymphocytes/100 leukoc ytesOrdered By: Dr. Liriano on 05-19-2022 Lymphocytes/100 WBC (Bld) 30.7 % 19-[address] [facility] Blood monocytes/100 leukocyt esOrdered By: Dr. Liriano on 05-19-2022 Monocytes/100 WBC (Bld) 7.1 % 0-10 [facility] Blood platelet mean volumeOr dered By: Dr. Liriano on 05-19-2022 Platelet mean volume (Bld) [Entitic vol] 9.7 fL 6.2-12.[address] [facility] Determination of erythrocyte mean corpuscular volume (MCV)Ordered By: Dr. Liriano on 05-19-2022 MCV (RBC) [Entitic vol] 99.3 fL 81-99 [facility] Hematocrit Auto (Bld) [Volum e fraction]Ordered By: Dr. Liriano on 05-19-2022 Hematocrit (Bld) [Volume fraction] 40.0 % 37-[address] [facility] Laboratory - Chemistry and C hemistry - challengeOrdered By: Dr. Liriano on 05-19-2022 ALP [Catalytic activity/Vol] 63 U/L 45-[address] [facility] ALT [Catalytic activity/Vol] 33 U/L 13-[address] [facility] CO2 [Moles/Vol] 27.0 mmol/L 21.0-32.[address] [facility] Globulin (S) [Mass/Vol] 3.4 g/dL 2.2-4.2 [facility] Urea nitrogen/Creatinine [Mass ratio] 17.3 mg/mg 10-[address] [facility] Laboratory - Hematology and Cell countsOrdered By: Dr. Liriano on 05-19-2022 Erythrocyte distribution width (RBC) [Entitic vol] 47.7 fL 35.1-43.[address] [facility] Erythrocyte distribution width (RBC) [Ratio] 13.2 % 11.6-14.[address] [facility] Immature granulocytes/100 WBC (Bld) 0.200 % 0.0-0.[address] [facility] Comment on above: IG% - Immature Granu locytes (promyelocytes, myelocytes and metamyelocytes) > 1% indicates that a LEFT SHIFT is Present. MCH (RBC) [Entitic mass] 32.8 pg 27.0-32.[address] [facility] Nucleated RBC/100 WBC (Bld) [Ratio] 0 % 0-[address] [facility] MCHC Auto (RBC) [Mass/Vol]Or dered By: Dr. Liriano on 05-19-2022 MCHC (RBC) [Mass/Vol] 33.0 g/dL 32-36 [facility] No Panel InformationOrdered By: Dr. Liriano on 05-19-2022 Estimated GFR (MDRD) Amer 86 mL/min >[address] [facility] Comment on above: GFR Calc Estimated GFR (MDRD) Non-Af Amer 71 mL/min >[address] [facility] Comment on above: Non- GFR Calc Platelets bldOrdered By: Dr. Liriano on 05-19-2022 Platelets (Bld) [#/Vol] 271 10*3/uL 150-[address] [facility] Serum or plasma albumin chey urement (mass/volume)Ordered By: Dr. Liriano on 05-19-2022 Albumin [Mass/Vol] 4.0 g/dL 3.2-5.0 [facility] Serum or plasma albumin/glob ulin mass ratioOrdered By: Dr. Liriano on 05-19-2022 Albumin/Globulin [Mass ratio] 1.2 {ratio} 0.9-2.[address] [facility] Serum or plasma calcium chey urement (mass/volume)Ordered By: Dr. Liriano on 05-19-2022 Calcium [Mass/Vol] 8.9 mg/dL 8.5-10.1 [facility] Serum or plasma creatinine m easurement (mass/volume)Ordered By: Dr. Liriano on 05-19-2022 Creatinine [Mass/Vol] 0.92 mg/dL 0.55-1.02 [facility] Comment on above: The validity of the calculated GFR & GFRAA in patients over 70 years has not been determined. Clinical correlation is essential. Serum or plasma urea nitroge n measurement (mass/volume)Ordered By: Dr. Liriano on 05-19-2022 Urea nitrogen [Mass/Vol] 16 mg/dL 7-[address] [facility] Thin prep Papanicolaou smear with manual screeningOrdered By: Dr. Liriano on 05-19-2022 Thin prep Papanicolaou smear with manual screening 18 U/L 15-[address] [facility] Thin prep Papanicolaou smear with manual screening 9 5-[address] [facility] .Auto Diffon 02-19-2022 Basophil, Absolute 0.0 10 3/mcL Normal 0.0-0.3 [facility] ([place]) Comment on above: Performed By: #### C MP, GFR #### [address] [address] Eosinophil, Absolute 0.0 10 3/mcL Normal 0.0-0.7 [facility] ([place]) Comment on above: Performed By: #### C MP, GFR #### [address] [address] Lymphocyte, Absolute 2.2 10 3/mcL Normal 0.9-4.3 [facility] ([place]) Comment on above: Performed By: #### C MP, GFR #### [address] [address] Monocyte, Absolute 0.4 10 3/mcL Normal 0.1-1.4 [facility] ([place]) Comment on above: Performed By: #### C MP, GFR #### [address] [address] .Auto DiffOrdered By: SYSTEM SYSTEM on 02-19-2022 Basophils/100 WBC (Bld) 0.5 % Normal 0.0-2.5 A H Workflow SS Comment on above: Performed By: #### C MP, GFR #### [address] [address] Eosinophils/100 WBC (Bld) 0.7 % Normal 0.0-6.0 AH Workflow SS Comment on above: Performed By: #### C MP, GFR #### [address] [address] Lymphocytes/100 WBC (Bld) 33.6 % Normal 20.0-40.0 AH Workflow SS Comment on above: Performed By: #### C MP, GFR #### [address] [address] Monocytes/100 WBC (Bld) 5.7 % Normal 2.0-13.0 A H Workflow SS Comment on above: Performed By: #### C MP, GFR #### [address] [address] Neutrophils/100 WBC (Bld) 59.5 % Normal 50.0-75.0 AH Workflow SS Comment on above: Performed By: #### C MP, GFR #### [address] [address] .GFRon 02-19-2022 GFR Non- >60 Normal [facility] ([place]) Comment on above: Result Comment: GFR Population [...] Performed By: #### C MP, GFR #### [address] [address] GFR >60 Normal [facility] ([place]) Comment on above: Result Comment: GFR Population [...] Performed By: #### C MP, GFR #### [place] [address] .NEUABSon 02-19-2022 Neutrophil, Absolute 3.9 10 3/mcL Normal 2.3-8.1 [facility] ([place]) Comment on above: Performed By: #### C MP, GFR #### [place] [address] CBCOrdered By: SYSTEM SYSTEM on 02-19-2022 Erythrocyte distribution width (RBC) [Ratio] 13.7 % Normal 11.5-15.5 AH Workflow SS Comment on above: Performed By: #### C MP, GFR #### [place] [address] Hematocrit (Bld) [Volume fraction] 39.6 % Normal 34.0-46.0 AH Workflow SS Comment on above: Performed By: #### C MP, GFR #### [place] [address] MCH (RBC) [Entitic mass] 32.0 pg Normal 27.0-33.0 AH Workflow SS Comment on above: Performed By: #### C MP, GFR #### [place] [address] MCHC 33.6 G/dL Normal 32.0-36.0 AH Workflow SS Comment on above: Performed By: #### C MP, GFR #### [place] [address] MCV (RBC) [Entitic vol] 95.1 fL Normal 80.0-99.0 A H Workflow SS Comment on above: Performed By: #### C MP, GFR #### [place] [address] Platelet mean volume (Bld) [Entitic vol] 8.0 fL Normal 6.6-10.5 AH Workflow SS Comment on above: Performed By: #### C MP, GFR #### [address] [address] CBCon 02-19-2022 Hgb 13.3 G/dL Normal 12.0-16.0 [facility] ([place] Comment on above: Performed By: #### C MP, GFR #### [place] [address] Platelet 257 10 3/mcL Normal 150-450 [facility] ([place] Comment on above: Performed By: #### C MP, GFR #### [place] [id number] RBC 4.16 10 6/mcL Normal 4.10-5.30 [facility] ([place] Comment on above: Performed By: #### C MP, GFR #### [place] [address] WBC 6.6 10 3/mcL Normal 4.5-10.8 [facility] ([place] Comment on above: Performed By: #### C MP, GFR #### [place] [address] CMP 02-19-2022 Albumin Level 4.1 G/dL Normal 3.2-4.8 [facility] ([place] Comment on above: Performed By: #### C MP, GFR #### [place] [address] ALT [Catalytic activity/Vol] 25 U/L Normal 10-49 [facility] ([place] Comment on above: Performed By: #### C MP, GFR #### [place] [address] Bili Total 0.30 mg/dL Normal 0.20-1.20 [facility] ([place] Comment on above: Result Comment: Use of this assay is not recommended for patients undergoing treatment with eltrombopag due to the potential for falsely elevated results. Performed By: #### C MP, GFR #### [place] [address] BUN/Creatinine Ratio 15.9 ratio Normal 10.0-22.0 [facility] ([place] Comment on above: Performed By: #### C MP, GFR #### [address] [address] Total Protein 7.3 G/dL Normal 5.7-8.2 [facility] ([place] Comment on above: Result Comment: No te - New Reference Range in effect 19 Performed By: #### C MP, GFR #### [address] [address] CMPOrdered By: SYSTEM SYSTEM on 02-19-2022 Albumin/Globulin [Mass ratio] 1.3 {ratio} Normal 0.9-1.6 AH ADM SS Comment on above: Performed By: #### C MP, GFR #### [address] [address] ALP [Catalytic activity/Vol] 81 U/L Normal 38-126 AH ADM SS Comment on above: Performed By: #### C MP, GFR #### [address] [address] AST [Catalytic activity/Vol] 19 U/L Normal 8-34 AH ADM SS Comment on above: Performed By: #### C MP, GFR #### [address] [address] Calcium [Mass/Vol] 9.5 mg/dL Normal 8.7-10.4 AH ADM SS Comment on above: Performed By: #### C MP, GFR #### [address] [address] Chloride [Moles/Vol] 106 mmol/L Normal 98-110 AH A DM SS Comment on above: Performed By: #### C MP, GFR #### [address] [address] CO2 [Moles/Vol] 27 mmol/L Normal 22-32 AH ADM SS Comment on above: Performed By: #### C MP, GFR #### [address] [address] Creatinine [Mass/Vol] 0.88 mg/dL Normal 0.50-1.20 AH ADM SS Comment on above: Performed By: #### C MP, GFR #### [address] [address] Electrolyte Balance 6.0 mEq/L Normal 4.0-15.0 AH AD M SS Comment on above: Performed By: #### C MP, GFR #### [address] [address] Globulin 3.2 G/dL Normal 1.5-3.8 AH ADM SS Comment on above: Performed By: #### C MP, GFR #### [address] [address] Glucose [Mass/Vol] 127 mg/dL High 70-110 AH ADM SS Comment on above: Performed By: #### C MP, GFR #### [address] [address] Potassium [Moles/Vol] 4.1 mmol/L Normal 3.5-5.0 AH ADM SS Comment on above: Performed By: #### C MP, GFR #### [address] [address] Sodium [Moles/Vol] 139 mmol/L Normal 136-145 AH ADM SS Comment on above: Performed By: #### C MP, GFR #### [place] [address] Urea nitrogen [Mass/Vol] 14.0 mg/dL Normal 8.0-22.0 AH ADM SS Comment on above: Performed By: #### C MP, GFR #### [address] [address] LABORATORYOrdered By: SYSTEM SYSTEM on 02-19-2022 Albumin [...] Invalid Interpretation Code 0.1 - 1.4 10^3/mcL Workflow SS Neutrophils (Bld) [#/Vol] 3.9 103/mcL Invalid Interpretation Code 2.3 - 8.1 10^3/mcL Workflow SS Platelets (Bld) [#/Vol] 257 103/mcL Invalid Interpretation Code 150 - 450 10^3/mcL Workflow SS Protein [Mass/Vol] 7.3 G/dL Invalid Interpretation Code 5.7 - 8.2 G/dL ADM SS RBC (Bld) [#/Vol] 4.16 106/mcL Invalid Interpretation Code 4.10 - 5.30 10^6/mcL Workflow SS Urea nitrogen/Creatinine [Mass ratio] 15.9 ratio Invalid Interpretation Code 10.0 - 22.0 ratio ADM SS WBC (Bld) [#/Vol] 6.6 103/mcL Invalid Interpretation Code 4.5 - 10.8 10^3/mcL Workflow SS TB by QuantiFERON *OUTSIDE U SE ONLY*on 01-31-2021 Interpretation TBNEG Normal [facility] Comment on above: Performed By: #### I NTPGP #### [facility] Immuno Assay [address] [place] [id number] Mitogen minus Nil >10 Normal [facility] Comment on above: Performed By: #### I NTPGP #### [facility] Immuno Assay [address] [place], [place] [address] TB NIL 0.03 IU/mL Normal [facility] Comment on above: Performed By: #### I NTPGP #### [facility] [employer] Immuno Assay [address] [place] [address] TB Result NEGAT Normal Negative [facility] Comment on above: Performed By: #### I NTPGP #### [facility] Immuno Assay [address] [place] [address] TB1 Ag minus Nil 0.00 IU/mL Normal <0.35 [facility] Comment on above: Performed By: #### I NTPGP #### [facility] Immuno Assay [address] [place] [address] TB2 Ag minus Nil 0.01 IU/mL Normal <0.35 [facility] Comment on above: Performed By: #### I NTPGP #### [facility] Immuno Assay [address] [place] [address] ZOE by IFAon 01-20-2021 ZOE Pattern ANANOT Normal [facility] Comment on above: Performed By: #### A HBSQ, HBSAG, AHCV1B, RF #### [facility] Routine Lab [address] [place] [address] #### ANAIFS, CCP #### [facility] Immuno Assay [address] [place], [place] [id number] ZOE Titer Normal Negative [facility] Comment on above: Result Comment: Nega tive Normal range : negatie at <1:80 serum dilution. Performed By: #### A HBSQ, HBSAG, AHCV1B, RF #### [facility] Routine Lab [facility] [place] [address] #### ANAIFS, CCP #### [facility] Immuno Assay [address] [place] [address] Nuclear Ab IF (S) [Titer] Negative Normal Negative [facility] Comment on above: Performed By: #### A HBSQ, HBSAG, AHCV1B, RF #### [facility] Routine Lab [address] [place], [place] [address] #### ANAIFS, CCP #### [facility] Immuno Assay [address] [place], [place] [address] CCP Antibody, IgGon 01-21-20 21 CCP Antibody, IgG <15 Normal <20 [facility] Comment on above: Performed By: #### A HBSQ, HBSAG, AHCV1B, RF #### [facility] Routine Lab [address] [place], [place] [address] #### ANAIFS, CCP #### [facility] Immuno Assay [address] [place], [place] [address] Hep C Ab IA w/Confon 021 Hepatitis C Ab IA NEGAT Normal Negative [facility] Comment on above: Performed By: #### A HBSQ, HBSAG, AHCV1B, RF #### [facility] Routine Lab [address], [place] [address] #### ANAIFS, CCP #### [facility] Immuno Assay [address], [place] [address] HepB SurfaceAb,Quanton 01-20 HepB SurfaceAb,Quant <8.00 Normal <8.00 [facility] Reference Lab Comment on above: Performed By: #### A HBSQ, HBSAG, AHCV1B, RF #### [facility] Routine Lab [address], [place] [address] #### ANAIFS, CCP #### [facility] Immuno Assay [address], [place] [address] Hepatitis B Surf. Agon 01-20 Hepatitis B Surf. Ag NEGAT Normal Negative [facility] Reference Lab Comment on above: Performed By: #### A HBSQ, HBSAG, AHCV1B, RF #### [facility] Routine Lab [address] [address] #### ANAIFS, CCP #### [facility] Immuno Assay [address] [address] Rheumatoid Factoron 01-20-20 21 Rheumatoid Factor 14 IU/mL Normal <16 [facility] Reference Lab Comment on above: Performed By: #### A HBSQ, HBSAG, AHCV1B, RF #### [facility] Routine Lab [address] [address] #### ANAIFS, CCP #### [facility] Immuno Assay [address] [address] Arash 10-31-2020 TSI <0.10 Normal <0.55 [facility] Reference Lab Comment on above: Performed By: #### H SCRP #### [facility] Routine Lab [address] [place] [phone] #### TSIGIM #### [facility] Immunology [address] [address] TSI Qualitative NEGAT Normal Negative [facility] Reference Lab Comment on above: Performed By: #### H SCRP #### [facility] Routine Lab [address] [place] [address] #### TSIGIM #### [facility] Immunology [address] [phone] Ultra-sensitive CRPon 2020 UltraSens C-ReacProt 2.9 mg/L Normal <3.1 [facility] Reference Lab Comment on above: Performed By: #### H SCRP #### [facility] Routine Lab [address] [place] [address] #### TSIGIM #### [facility] Immunology [address], [place] [address] Vital Signs Date Time Vital Sign Value Performing Clinician Faci lity 10-14-2024 21:50-0400 Body temperature 98.1 [degF] Nakia Moran [employer] Work Phone: [facility] 10-14-2024 21:50-0400 Diastolic blood pressure 61 mm[Hg] Nakia Moran [employer] Work Phone: [facility] 10-14-2024 21:50-0400 Heart rate 75 /min Nakia Moran [employer] Work Phone: [facility] 10-14-2024 21:50-0400 Respiratory rate 16 /min Nakia Moran [employer] Work Phone: [facility] 10-14-2024 21:50-0400 SaO2% (BldA) [Mass fraction] 99 % Nakia Moran [employer] Work Phone: [facility] 10-14-2024 21:50-0400 Systolic blood pressure 120 mm[Hg] Nakia Moran [employer] Work Phone: [facility] 10-14-2024 17:43-0400 Body height 154.94 cm Nakia Moran [employer] Work Phone: [facility] 10-14-2024 17:43-0400 Body mass index (BMI) [Ratio] 40.7 kg/m2 Nakia Moran [employer] Work Phone: [facility] 10-14-2024 17:43-0400 Body weight 97.74 kg Nakia Moran [employer] Work Phone: [facility] 05-25-2022 09:30-0500 Diastolic blood pressure 70 mm[Hg] [facility] 05-25-2022 09:30-0500 Heart rate 74 /min [facility] 05-25-2022 09:30-0500 Respiratory rate 16 /min [facility] 05-25-2022 09:30-0500 SaO2% (BldA) [Mass fraction] 95 % [facility] 05-25-2022 09:30-0500 Systolic blood pressure 96 mm[Hg] [facility] 05-25-2022 08:52-0500 Body temperature 98.5 [degF] [facility] 05-25-2022 08:30-0500 Inhaled oxygen flow rate 3 L/min [facility] 05-25-2022 06:40-0500 Body height 154.94 cm [facility] 05-25-2022 06:40-0500 Body mass index (BMI) [Ratio] 44.1 kg/m2 [facility] 05-25-2022 06:40-0500 Body weight 106 kg [facility] Encounters Encounter Date Encounter Type Care Provider Facility Start: 10-17-2024 End: 10-17-2024 Patient encounter procedure Sheila BAILEY -[facility] Work Phone: Start: 10-17-2024 End: 10-17-2024 ambulatory Nakia Moran NP-C Work Phone: [facility] Work Phone: Start: 10-14-2024 End: 10-14-2024 Emergency department patient visit Nakia Moran NP-C Work Phone: -Emergency Department Work Phone: Start: 09-26-2024 End: 09-26-[address] Maria Liriano MD -Ultrasound [facility] Work Phone: Start: 09-26-2024 End: 09-26-2024 ambulatory Chalon Juan Facility:[facility] Start: 09-13-2024 End: 09-13-2024 ambulatory Nakia Moran [employer] Work Phone: [facility] Work Phone: Start: 09-13-2024 End: 09-13-[address] [facility] Start: 09-13-2024 End: 09-13-2024 ambulatory Chalon Juan Facility:[facility] Start: 07-22-2024 End: 07-22-2024 ambulatory Nakia Moran [employer] Work Phone: [facility] Work Phone: Start: 07-22-2024 End: 07-22-[address] Coral Martinez MD -Laboratory Work Phone: Start: 07-22-2024 End: 07-22-2024 ambulatory Coral Martinez Facility:[facility] Start: 06-21-2024 End: 06-21-[address] Maria Liriano MD -Laboratory, [place] Work Phone: Start: 06-21-2024 End: 06-21-2024 ambulatory Nakia Moran NP Facility:[facility] Start: 06-12-2024 End: 06-13-2024 ambulatory NAKIA MORAN [facility] Start: 03-21-2024 End: 03-21-2024 ambulatory Maria Liriano Facility:[facility] Start: 02-09-2024 End: 02-10-2024 ambulatory NAKIA MORAN [facility] Start: 01-06-2024 End: 01-06-2024 ambulatory MARIA LIRIANO [facility] Start: 12-01-2023 End: 12-01-2023 ambulatory NAKIA MORAN [facility] Start: 07-15-2023 End: 07-15-2023 ambulatory MARIA LIRIANO [facility] Start: 01-19-2023 End: 01-19-[address] MARIA LIRIANO MD [facility] Start: 05-25-2022 End: 05-25-2022 Admission to same day surgery center [facility] Start: 05-19-2022 End: 05-19-2022 ambulatory [facility] Work Phone: Start: 05-19-2022 End: 05-19-2022 Patient encounter procedure [facility] Start: 02-19-2022 End: 02-20-[address] MARIA LIRIANO MD. Facility:A Start: 02-19-2022 End: 02-19-[address] MARIA LIRIANO MD [facility] Procedures Date Procedure Procedure Detail Performing Clinician Start: 10-14-2024 End: 10-14-2024 Iadna-dna/rna gi pthgn multiplex probe tq 6-11 Nakia Moran [employer] Work Phone: Start: 10-14-2024 Computed tomography of abdomen and pelvis with intravenous contrast Nakia Moran [employer] Work Phone: Start: 10-14-2024 Estimated creatinine clearance Nakia Moran [employer] Work Phone: Start: 10-14-2024 Clostridium difficil e detection Nakia Moran [employer] Work Phone: Start: 10-14-2024 Nucleic acid assay Jake Moran [employer] Work Phone: Start: 09-26-2024 Ultrasonography of abdomen Nakia Moran [employer] Work Phone: Start: 07-22-2024 Vitamin D, 25-hydrox y measurement Nakia Moran [employer] Work Phone: Comment on above: Vitamin D StatusDefi ciency: <20 ng/mL (50nmol/L)Insufficiency: 20-30 ng/mL (50-75 nmol/L)Sufficiency: 30-100 ng/mL (75-250 nmol/L)Toxicity: >100 ng/mL (>250 nmol/L) Start: 06-21-2024 Measurement of renal function Nakia Moran [employer]C Work Phone: Comment on above: GFR Calc Start: 05-25-2022 Laparoscopic salpingectomy Plan of Treatment Date Care Activity Detail Author Start: 10-14-2024 [facility] Start: 10-14-2024 Enteric precautions [facility] Start: 05-25-2022 Introduction of urin pb catheter [facility] Start: 05-25-2022 Patient discharge [facility] Start: 05-25-2022 Ambulation therapy management [facility] Start: 05-25-2022 Continuous pulse oximetry [facility] Start: 05-25-2022 Elevation of head of bed [facility] Start: 05-25-2022 Incentive spirometry [facility] Start: 05-25-2022 Measuring intake and output [facility] Start: 05-25-2022 Notification of physician [facility] Start: 05-25-2022 End: 05-25-20[address] [facility] Start: 05-25-2022 Patient education [facility] Start: 05-25-2022 Taking patient vital signs [facility] Start: 05-25-2022 Wound care [facility] Start: 05-25-2022 [facility] CBC W Auto Different ial panel - Blood [facility] Patient Education ED Diarrhea, U nknown Cause [facility] Work Phone: Patient referral [facility] Work Phone: Protein measurement [facility] Payers Date Payer Category Payer Self-pay 2022 Unknown [id number] 2022 Unknown [id number] 1980 Unknown [id number] 2.16.8 [id number] 1980 Unknown [id number] 2.16.8 [id number] 1980 Unknown [id number] 2.16.8 [id number] 1980 Unknown [id number] 2.16.8 [id number] 1980 Unknown [id number] 2.16.8 [id number] 1980 Unknown [id number] 2.16.8 [id number] Unknown [id number] Unknown [id number] 2.16.8 [id number] Unknown [id number] 2.16.8 [id number] Unknown [id number] 2.16.8 [id number] Unknown [id number] 2.16.8 [id number] Unknown [id number] 2.16.8 [id number] Unknown [id number] 2.16.8 [id number] Unknown [id number] 2.16.8 [id number] Unknown [id number] 2.16.8 [id number] Social History Date Type Detail Facility Tobacco smoking status [facility] Start: 05-19-2022 Tobacco smoking stat [facility] Unknown if ever smoked [facility] Start: 1980 Sex Assigned At Female W [facility] Start: 05-19-2022 End: 10-14-2024 Tobacco smoking status NHIS Ex-smoker (finding) [facility] Start: 07-29-2024 Sex Female (finding) [facility] Goals Date Patient Goal Desired Activity /State Mental Status Date Assessment Result Facility 05-25-2022 Cognitive function Voice/Name [facility] Work Phone: Clinical Notes 10-14-2024 Note Date & Type Note Facility 10-14-2024 Discharge summary [facility] 10-14-2024 Radiology Diagnostic study note [facility] Imaging Services [address] [place], [place] [address] Abdomen/Pelvis W IV Cont ONLY MR#: [id number] Acct: [id number] Name: MCKAYLA KAUFFMAN Rep #: [id number] : 1980 F 44 From: Serena Singh MD PCP: Dr. Coral Martinez MD Status: REG ER Study:Abdomen/Pelvis W IV Cont ONLY Date of E xam: 10/14/24 Exam# [id number] Ordering Dr: Mara Combs DO PROCEDURE: ABDOMEN/PELVIS W IV CONT ONLY 10/14/2024 REASON FOR EXAM: LEFT LOWER QUADRANT PAIN, HISTORY OF DIVERTICULITIS TECHNIQUE: Abdomen and pelvis CT with intravenous contrast. Coronal and Sagittal reconstruction series were provided. PATIENT PREPARATION: Per protocol ORAL CONTRAST TYPE: None. CONTRAST: Isovue 370 VOLUME: 100 mL One or more dose reduction techniques were used (e.g., Automated exposure control, adjustment of the mA and/or kV according to patient size, use of iterative reconstruction technique. RADIATION DOSE SUMMARY: CTDlvol: 35 mGy DLP: 1200 mGycm COMPARISON: Abdominal ultrasound 09/2024. FINDINGS: Lung bases: Unremarkable. Liver: The liver is normal in size without suspicious hepatic mass. The major portal veins are patent. No biliary ductal dilation. Gallbladder: No radiopaque stones within the gallbladder. Spleen: Normal in size. Pancreas: Unremarkable. Adrenals: No adrenal mass. Kidneys: No hydronephrosis or nephrolithiasis. Bladder: Minimally distended. Reproductive Organs: Normal uterine size and contour. Ovaries are unremarkable. Bowel: The bowel loops are nondilated. No ascites or pneumoperitoneum. Long segment mural thickening, hyperenhancement and fat stranding of the proximal descending colon with loss of haustral markings (coronal image 70 for example). Minimal distal colonic diverticulosis. No diverticulitis or intra-abdominal abscess. Lymph nodes: No suspicious lymphadenopathy. Vasculature: Minimal mixed plaque of the aortoiliac vessels. Bones/soft tissues: Small fat containing umbilical hernia. CT/Abdomen/Pelvis W IV Cont ONLY IMPRESSION: 1. Long segment wall thickening, hyperenhancement and fat stranding of the proximal descending colon, which is indeterminate in etiology, and may represent enteritis or inflammatory bowel disease. Colonoscopy is recommended for further evaluation. 2. Minimal colonic diverticulosis. No intra-abdominal abscess, ascites or free air. Reading Location: [id number] CC: Dr. Coral Martinez MD; Dr. Sam Combs, DO ~ Head Stock Transfer Clerk: Signed [facility] 10-14-2024 Discharge summary Note Date/Time October 14, 2024 9:52pm [facility] Medical Records Department [address] [place] [address] Emergency Department Summary 10/14/24 MR#: [id number] Acct: [id number] Name: MCKAYLA KAUFFMAN Rep #:[id number] : 1980 44 From: Sam Mcfarland PCP: Dr. Coral Martinez MD Status:REG ER Location: ED HPI History of Present Illness Chief Complaint: GI Bleed [facility] Medical History Wears contact lenses Wears glasses History of steroid therapy Rheumatoid arthritis Arthritis Anemia High cholesterol Migraine headache History of diverticulitis History of hiatal hernia Gastric reflux Former smoker Asthma COPD (chronic obstructive pulmonary disease) Hoarseness Chronic cough Fibromyalgia Leg cramps History of pain when walking History of edema Home Medications ?Medication ?Instructions ?Recorded ?Last Taken ?Type albuterol sulfate 90 mcg/actuation 2 inh inhalation CO N PRN COPD 05/19/22 0 05/25/22 History aerosol inhaler atorvastatin 10 mg tablet 10 mg PO QHS 05/19/22 Unknow n History duloxetine 60 mg capsule,delayed 60 mg PO DAILY Unknown History release (Cymbalta) ferrous sulfate 28 mg iron tablet 28 mg PO DAILY 05/19 Unknown History fluticasone furoate 200 1 inh inhalation DAILY 05/1905/25/22 History mcg-vilanterol 25 mcg/dose inhalation powder folic acid 1 mg tablet 2 mg PO BID 05/19/22 Unknown History hydroxychloroquine 200 mg tablet 200 mg PO BID 3 Unknown History leucovorin calcium 15 mg tablet 15 mg PO FR 05/19/22 U nknown History methotrexate sodium 2.5 mg tablet 20 mg PO TH 05/19/22 Unknown History multivitamin 1 tab PO DAILY 05/19/22 Unkn own History pantoprazole 40 mg tablet,delayed 40 mg PO DAILY 05/1905/25/22 History release prednisone 10 mg tablet 10 mg PO PRN PRN RHEUMATOID 05/19/22 Unknown History ARTHRITIS Allergy/AdvReac Type Severity Reaction Status Date / Time amoxicillin AdvReac Other Verified 10/14/24 17:42 Surgical History Hx of lymph node biopsy Hx of tonsillectomy Social History (Updated 10/14/24 @ 17:51 by Ani Terry) household members: spouse housing: house Smoking Status: Former smoker EXAM Physical Exam Const Vital Signs: 10/14/24 17:43 10/14/24 19:42 10/14/24 21:00 Temperature 97.9 F Temperature Source Temporal Pulse Rate 115 H 77 81 Respiratory Rate 18 16 16 Blood Pressure 130/59 H 135/68 H 107/77 Blood Pressure Mean 82 90 87 Pulse Ox 99 99 100 Oxygen Delivery Method Room Air Room Air Room Air MDM MDM MDM Narrative Medical decision making narrative: HISTORY OF PRESENT ILLNESS: Chief complaint: Diarrhea, hematochezia 44-year-old female history of rheumatoid arthritis, COPD, fibromyalgia presents with abdominal pain, bloody diarrhea. The patient denies being on blood thinners. No significant approximately 4 mm. No history of diverticulitis. Noshe took Bentyl that relief. She further states she had left lower quadrant pain. Does not quite feel like a prior diverticulitis. She notes she did take 1 dose of ciprofloxacin and Flagyl this morning. Denies vomiting but notes nausea but denies fever. Denies sick contacts, travel, recent surgery or or other antibiotics besides the ones of interest endorsed. Denies chest pain or shortness of breath. Denies urinary complaints. Denies history of kidney stones. Denies falls or trauma. REVIEW OF SYSTEMS: Pertinent positives: Diarrhea, abdominal pain, hematochezia Pertinent negatives: Vomiting, fever, chest pain PHYSICAL EXAM: Nursing triage notes reviewed, Vital signs reviewed Constitutional: please see mdm HENT: MMM Eyes: Pupils equal round and reactive to light, Extraocular muscles intact Neck: No stridor, no JVD, full neck ROM Lungs: Clear to auscultation, No wheezing or rales. No increased work of breathing, no conversational dyspnea, no accessory muscle use, no nasal flaring. No respiratory distress noted Heart: Regular rate and rhythm, No murmurs, No rubs and No gallops, 2+ distal pulses (radial, femoral, posterior tibial) in all extremities Abdomen: Soft, there is no tenderness, rigidity, rebound or guarding, no obviousperitoneal signs, no palpable pulsatile abdominal masses, no auscultated abdominal bruit : No CVAT Extremities: No edema Neuro: No new focal neurological deficits, cranial nerves II through XII intact,5/5 strength in all present extremities. Intact sensation to light touch in all present extremities, 2+ reflexes bilateral patella tendons. Skin: No rash or lesions noted MEDICAL DECISION MAKING: Chief Complaint: please see HPI External records reviewed: Reviewed prior imaging studies: Reviewed abdominal ultrasound from September 2024 which showed fat infiltration of liver, hemangioma Factors affecting care: As per HPI Social determinants of health: Denies drugs or alcohol History obtained from others: none Consults: none [facility] Narrative: The patient was initially tachycardic otherwise hemodynamically stable, afebrileand nontoxic-appearing. Exam with no obvious peritoneal signs. I considered the following differential diagnosis: AAA, small bowel obstruction,abdominal perforation, perforated diverticula, diverticular abscess, appendicitis, pancreatitis, hepatobiliary pathology (acute cholecystitis), mesenteric ischemia, pathology (ie nephrolithiasis, pyelonephritis), invasivediarrheal species (including E. coli and Shigella). I obtained a broad lab and imaging workup to further elucidate etiology the patient complaints. Initially treated patient with 1 L normal saline, 4 mg IV morphine, 4 mg IV Zofran, 15 mg IV Toradol ALL IMAGES (IF OBTAINED) HAVE BEEN PERSONALLY REVIEWED AND INTERPRETED BY MYSELF. CBC leukocytosis suggestive of systemic inflammation. She is on steroids so this may be result of demarginalization rather than acute inflammation CMP without evidence of acute kidney injury, significant electrolyte abnormality, anion gap to suggest end organ hypo-perfusion, no evidence of metabolic acidosis with a normal bicarbonate, no evidence of hepatobiliary obstructive pathology. Lipase is wnl indicating no pancreatic inflammation. Urinalysis shows no evidence of urinary inflammation suggestive of UTI Urine test is negative CT scan of the abdomen/pelvis shows possible enteritis but no obvious surgical emergencies. No diverticulitis or diverticular abscess. Upon reassessment patient heart improved to 81, she remained afebrile. The synthesis of the patient's history, physical exam, labs images suggest likely enteritis. Will await stool cultures before prescribing additional medications including antibiotics. Encourage patient to follow stool cultures on her electron medical record and torefer to her primary care physician during follow-up for results. She was prescribed Zofran for symptomatic relief of nausea at home. The patient and/or family, caregivers express understanding. The patient and/orfamily, caregivers agrees with the plan. Shared decision making: I will have a discussion with the patient and or visitors regarding risk/benefits of further testing or admission. They will be made aware of of the risk/benefits inherent in this decision they will be given the opportunity to voice understanding. Total critical care time today provided was at least 0 [] minutes. This excludes separately billable procedures. Critical care time (if documented) is secondary to the patient having high probability of clinically significant/life threatening deterioration in the patient's condition which required my urgent intervention. Impression: 1. Abdominal pain 2. Diarrhea 3. Hematochezia Dispo: Discharge home This note was generated with [employer] dictation software. It may contain incorrect words, spelling, and punctuation that were not noted in review of the chart prior to signing. Lab Data Labs: Laboratory Results - last 24 hr 10/14/24 10/14/24 18:11 18:18 WBC 12.8 H RBC 4.51 Hgb 14.2 Hct 42.6 MCV 94.5 MCH 31.5 MCHC 33.3 RDW Std Deviation 45.7 H RDW Coeff of Glen 13.2 Plt Count 246 MPV 10.1 Immature Gran % (Auto) 0.500 Neut % (Auto) 84.9 H Lymph % (Auto) 7.8 L [place] % (Auto) 6.3 Eos % (Auto) 0.2 Baso % (Auto) 0.3 Absolute Neuts (auto) 10.9 H Absolute Lymphs (auto) 0.99 Nucleated RBC % 0 Sodium 139 Potassium 3.6 Chloride 104 Carbon Dioxide 24.5 Anion Gap 11 BUN 5 Creatinine 0.82 Estim Creat Clear Calc 93.68 Est GFR (MDRD) Non-Af 91 BUN/Creatinine Ratio 5.5 L Glucose 97 Calcium 9.6 Total Bilirubin 0.47 AST 24 ALT 30 Alkaline Phosphatase 64 Total Protein 7.5 Albumin 4.6 Globulin 3.0 Albumin/Globulin Ratio 1.5 Lipase 27 Urine Color Genny Urine Clarity Cloudy Urine pH 5.0 Ur Specific Bloomer 1.030 Urine Protein 30 H Urine Glucose (UA) Normal Urine Ketones 5 H Urine Occult Blood Negative Urine Nitrite Negative Urine Bilirubin 1 H Urine Urobilinogen Normal Ur Leukocyte Esterase 25 H Urine RBC 0 SEEN Urine WBC 0-5 SEEN Ur Squamous Epith Cells 0-5 SEEN Ur Transition Epith Cell 0-5 SEEN Urine Bacteria 4+ Fine Granular Casts 0-5 SEEN Urine Mucus 0 SEEN Urine Test Negative Radiography Diagnostic Testing: Clinical Impression(s) from Imaging Studies Abdomen/Pelvis CT 10/14/24 18:15 IMPRESSION: 1. Long segment wall thickening, hyperenhancement and fat stranding of the proximal descending colon, which is indeterminate in etiology, and may represent enteritis or inflammatory bowel disease. Colonoscopy is recommended for further evaluation. 2. Minimal colonic diverticulosis. No intra-abdominal abscess, ascites or free air. Reading Location: [id number] Discharge Plan Triage Chief Complaint: GI Bleed ED Provider: Sam Combs Dx/Rx/DC Orders Prescriptions: No Action multivitamin Tablet 1 tab PO DAILY prednisone 10 mg tablet 10 mg PO PRN PRN (Reason: RHEUMATOID ARTHRITIS) Patient Comments: TAKE 1 TABLET BY MOUTH DAILY NEEDED TAKE FOR 3 TO 5 DAYS WITH A FLARE atorvastatin 10 mg tablet 10 mg PO QHS Patient Comments: TAKE 1 TABLET BY MOUTH EVERYDAY AT BEDTIME leucovorin calcium 15 mg tablet 15 mg PO FR Patient Comments: TAKE 1 TABLET BY MOUTH ONCE A WEEK methotrexate sodium 2.5 mg tablet 20 mg PO TH Patient Comments: TAKE 8 TABLETS BY MOUTH ONE TIME PER WEEK pantoprazole 40 mg tablet,delayed release (DR/EC) 40 mg PO DAILY Patient Comments: 1 (ONE) TABLET BY MOUTH 30 MINUTES PRIOR TO BREAKFAST OR BEFORE FIRST MEAL OF THE DAY folic acid 1 mg tablet 2 mg PO BID Patient Comments: TAKE 2 TABLETS BY MOUTH EVERY DAY hydroxychloroquine 200 mg tablet 200 mg PO BID Patient Comments: TAKE 1 TABLET BY MOUTH TWICE A DAY albuterol sulfate 90 mcg/actuation HFA aerosol inhaler 2 inh INHALATION PRN PRN (Reason: COPD) Patient Comments: 2 PUFFS EVERY 4 HOURS NEEDED duloxetine [Cymbalta] 60 mg capsule,delayed release(DR/EC) 60 mg PO DAILY Patient Comments: TAKE 1 CAPSULE BY MOUTH EVERYDAY AT BEDTIME ferrous sulfate 28 mg iron Tablet 28 mg PO DAILY fluticasone furoate-vilanterol 200-25 mcg/dose blister with device 1 inh INHALATION DAILY Patient Comments: TAKE 1 PUFF BY MOUTH EVERY DAY Primary Care Provider: Coral Martinez Referrals: Coral Martinez MD [Primary Care Provider] - Print Language: Upper Sorbian What to do if you have Problems For any increased pain, shortness of breath, bleeding, nausea or vomiting, chestpain, or any unexpected problems, contact your Primary Care Provider. Call [facility] ([phone]) or report to the closest Emergency Room. Call 911 if necessary. [id number]/14/[id number] <Electronically signed by Sam Combs DO> Cosigner Signature (if applicable): CC: Dr. Coral Martinez MD ~ Signed [facility] Work Phone: Evaluation + Plan note No data available for this section [facility] Evaluation noteNo assessment information available [facility] Work Phone: Evaluation note* Diagnosis Onset Date Resolution Status Admit Date Bright red blood per rectum acute October 17, 2024 6:55am [facility] Work Phone: Hospital Discharge instructions No data available for this section [facility] Hospital Discharge instructions Additional Instructions [facility]: [facility] Discharge instructions Additional Instructions Thank you for trusting us with your care today! Your labs images were reassuring. Specifically no sign of diverticulitis, diverticular abscess or perforation. There was inflammation noted in your colon. This is likely the cause of your diarrhea. Is unclear if is related to invasive diarrheal species (E. coli Please take Tylenol (2 pills, 650 mg), ibuprofen (2 pills, 400 mg) every 6 hours as needed for pain and fever control. Please return to the emergency department if your symptoms change or worsen. Please follow with your primary care physician for further outpatient evaluation and management.[facility] Work Phone: Progress note No data available for this section [facility] Reason for referral (narrative)No reason for referral information availableWUniversity [facility] Work Phone: Summary Purpose Family History No Family History Records FoundNo Family History Records Found No data available for this section No Family History Records FoundNo Family History Records Found Advance Directives No Advanced Directives Records Found Advance Directive Response Recorded Date/ Time Living Will No May 19 9:08am Power of Vegetable Buncher No May 19, 2022 9:08am Advance Directive Response Recorded Date/ Time Do you have a Healthcare Power of Vegetable Buncher? No October 14, 2024 5:51pm Chief Complaint and Reason for Visit Chief Complaint PAIN- COPY PCP LAP BILAT SALPING Chief Complaint Admit Date S/O- PAIN- COPY PCP June 21, 2024 7:39am E-ORDER July 22, 2024 8:0 7am Chief Complaint Admit Date S/O- PAIN- COPY PCP June 21, 2024 7:39am E-ORDER July 22, 2024 8:0 7am PAIN- COPY PCP September 13, 2024 7:05am Chief Complaint Admit Date S/O- PAIN- COPY PCP June 21, 2024 7:39am E-ORDER July 22, 2024 8:0 7am PAIN- COPY PCP September 13, 2024 7:05am [facility] September 26, 2024 7: 17am gi bleed October 14, 2024 5:42p m Chief Complaint Admit Date S/O- PAIN- COPY PCP June 21, 2024 7:39am E-ORDER July 22, 2024 8:0 7am PAIN- COPY PCP September 13, 2024 7:05am [facility] September 26, 2024 7: 17am gi bleed October 14, 2024 5:42p m ER FU BLEEDING October 17, 2024 6:55 am Reason for Visit Admit Date Bright red blood per rectum October 17 6:55am Additional Source Comments INFORMATION SOURCE (unrecogn ized section and content) DATE CREATED AUTHOR 01/31/2021 [facility] DATE CREATED AUTHOR AUTHOR'S ORGANIZ ATION 06/25/2022 [facility] ([place] DATE CREATED AUTHOR AUTHOR'S ORGANIZ ATION 06/13/2024 [facility] DATE CREATED AUTHOR AUTHOR'S ORGANIZ ATION 10/18/2024 [facility] Care Team (unrecognized sect ion and content) Care Team Personnel Name: BRET LATIF V Position: Physician Med Service: Active Provider Member Role: Primary Care Physician Address: Address: [address] [place] [address], [place] [address]- Care Team Related Persons Name: LIZ MAHONEY Address: Home [address] [place] [id number] Care Teams (unrecognized sec tion and content) Team Status: Active Member Role Status Dates Nakia Moran DIESEL POWERPLANT MECHANIC, DIESEL POWERPLANT MECHANIC-C Primary Care Provider Active Team Status: Inactive Member Role Status Dates Dr. Chemo Rodriguez MD Attending Provider, Referring Pr ovider Active Nakia Moran DIESEL POWERPLANT MECHANIC, DIESEL POWERPLANT MECHANIC-C Primary Care Provider Active Team Status: Inactive Member Role Status Dates Nakia Moran DIESEL POWERPLANT MECHANIC, DIESEL POWERPLANT MECHANIC-C Primary Care Provider Active Dr. Maria Liriano MD Attending Provider, Referring Provider Active Team Status: Active Member Role Status Dates Coral Martinez MD Primary Care Provider Active Team Status: Inactive Member Role Status Dates Nakia Moran DIESEL POWERPLANT MECHANIC, DIESEL POWERPLANT MECHANIC-C Primary Care Provider Active Start: June 21, [...] 2024 Team Status: Inactive Member Role Status Melissa Martinez MD Primary Care Provider Active St art: September 13, 2024 End: September 13, 2024 Dr. Maria Liriano MD Attending Provider Active Start: September 13, 2024 End: September 13, 2024 Dr. Maria Liriano MD Referring Provider Active Start: September 13, 2024 End: September 13, 2024 Team Status: Inactive Member Role Status Dates Coral Martinez MD Primary Care Provider Active St art: September 26, 2024 End: September 26, 2024 Dr. Maria Liriano MD Attending Provider Active Start: September 26, 2024 End: September 26, 2024 Dr. Maria Liriano MD Referring Provider Active Start: September 26, 2024 End: September 26, 2024 Team Status: Inactive Member Role Status Melissa Martinez MD Primary Care Provider Active St art: October 14, 2024 End: October 14, 2024 Dr. Sam Combs DO Emergency Provider Active Start: October 14, 2024 End: October 14, 2024 Team Status: Inactive Member Role Status Melissa Martinez MD Primary Care Provider Active St art: October 17, 2024 End: October 17, 2024 Coral Martinez MD Referring Provider Active Start : October 17, 2024 End: October 17, 2024 SHENG Zarate Attending Provider Active Start: October 17, 2024 End: October 17, 2024 Goals (unrecognized section and content) Goals [...] BE BASED ON THE PRIMARY CLINICAL RECORDS. [employer] provides no warranty or guarantee of the accuracy or completeness of information in this document.
[2024-10-24 14:09] LABS: Calprotectin, Stool 443 ug/g (0-120)
== END | disposition home or self-care (01) ==
LOC: MTLAB 07:19
PROVIDERS: PCP Family Medicine; Referring Provider Student in an Organized Health Care Education/Training Program; Visit Provider Student in an Organized Health Care Education/Training Program
DX: K62.5 Hemorrhage of anus and rectum (principal)
CPT/HCPCS: 83993

== ENCOUNTER → 2024-11-13 | Outpatient (CLI) | payer BC, SELFPAY ==
[2024-11-13 10:42] LABS: Hematocrit 37.8 % (37-47); Hemoglobin 12.6 g/dL (12.0-15.0); Immature Granulocytes Count 0.030 X10^3/uL (0.0-0.0); Mean Corp Hgb Conc 33.3 g/dL (32-36); Mean Corpuscular Volume 96.2 fL (81-99); Mean Platelet Vol. 10.5 fl (6.2-12.0); NRBC Flagged by Analyzer 0 % (0-5); Platelet Count 233 K/mm3 (150-450); RBC Distribution Width CV 13.7 % (11.6-14.6); RBC Distribution Width SD 48.8 fl (35.1-43.9); Red Blood Count 3.93 M/mm3 (4.2-5.4); White Blood Count 7.0 K/mm3 (4.4-11.0)
[2024-11-13 10:43] LABS: AST(SGOT) 19 U/L (<=31); Alanine Aminotransfer ALT/SGPT 25 U/L (<=34); Albumin, Serum 4.3 g/dL (3.5-5.0); Alkaline Phosphatase 61 U/L (35-104); Anion Gap 12 (5-15); BUN 9 mg/dL (4-19); BUN/Creat Ratio 10.5 RATIO (10-20); Calcium,Total 9.4 mg/dL (7.6-11.0); Carbon Dioxide 20.3 mmol/L (21.0-32.0); Chloride 105 mmol/L (98-108); Globulin 2.8 g/dL (2.2-4.2); Glucose 96 mg/dL (70-99); Potassium 4.2 mmol/L (3.3-5.1)
== END | disposition home or self-care (01) ==
LOC: MTLAB 07:18
PROVIDERS: PCP Family Medicine; Referring Provider Internal Medicine Rheumatology; Visit Provider Internal Medicine Rheumatology
DX: M06.4 Inflammatory polyarthropathy (principal); M79.7 Fibromyalgia; Z79.899 Other long term (current) drug therapy
CPT/HCPCS: 36415; 80053; 85025

== ENCOUNTER 2024-12-12 05:21 | Day surgery (SDC) | payer BC, SELFPAY ==
[2024-12-12] VITALS (7 sets, daily range): BP systolic 91–107; BP diastolic 54–73; PULSE 72–75; RESP 16; TEMP 36.1–36.6; O2SAT 98–100; BMI 38.7
--- OUTSIDE RECORDS SUMMARY | 2024-12-12 05:23 | XMS RPT_ITS | CCD ---
Author Organization [facility] Care Team Providers Care Geophysical Observer Name Role Phone BRET LATIF DO, V Primary Care Physician DEANDRA FRANCE, DR. SIFUENTES Attending Unavaila ble BRET LATIF DO, V Primary Care Unavailable MARIA LIRIANO MD Primary Care Unavailable NAKIA MORAN CNP Consulting Unavailable MARIA LIRIANO MD Admitting Unavailable MARIA LIRIANO MD Attending Unavailable PROVIDER, UNKNOWN Consulting Unavailable PROVIDER, UNKNOWN Consulting Unavailable MARIA LIRIANO MD Admitting Unavailable NAKIA MORAN CNP Consulting [...] Consulting Unavailable PROVIDER, UNKNOWN Consulting Unavailable Dean WATER SAFETY INSTRUCTOR-CNakia Primary Care Provider [phone] Dr. Maria Liriano MD Attending Provider Dr. Maria Liriano MD Referring Provider Coral Martinez MD Primary Care Provider Coral Martinez MD Attending Provider Coral Martinez MD Referring Provider [phone] Sam Combs DO Emergency Provider [phone] Sheila Kong Attending Provider Deandra VELASCO, Dr. Sifuentes Attending Provider Deandra VELASCO, Dr. Sifuentes Referring Provider Dr. Sam Combs DO Attending Provider Sheila Kong Referring Provider Juan, Chalon Primary Care Unavailable Juan, Chalon Attending Unavailable Juan, Chalon Referring Unavailable Dean WATER SAFETY INSTRUCTOR, Nakia Primary Care Unavailable Vellanki, Maria Attending Unavailable Vellanki, Maria Referring Unavailable Lauryn, Sam Attending Unavailable Juan, Chalon Primary Care Unavailable Dean WATER SAFETY INSTRUCTOR, Nakia Primary Care Unavailable Vellanki, Maria Attending Unavailable Vellanki, Maria Referring Unavailable Vellanki, Maria Referring Unavailable Vellanki, Maria Attending Unavailable Juan, Chalon Primary Care Unavailable Juan, Chalon Primary Care Unavailable Atanasov, Sheila Attending Unavailable Atanasov, Sheila Referring Unavailable Juan, Chalon Primary Care Unavailable Friend, Misael Attending Unavailable Atanasov, Sheila Attending Unavailable Juan, Chalon Primary Care Unavailable Juan, Chalon Referring Unavailable Juan, Chalon Primary Care Unavailable Atanasov, Sheila Attending Unavailable Atanasov, Sheila Referring Unavailable Vellanki, Maria Referring Unavailable Vellanki, Maria Attending Unavailable Juan, Chalon Primary Care Unavailable Vellanki, Maria Referring Unavailable Vellanki, Amria Attending Unavailable Juan, Chalon Primary Care Unavailable Allergies Allergy Classification Reported Allergen(s) Allergy Type Date of Onset Reaction(s) Facility (10 sources) Amoxicillin; Translations: [amoxicillin] Drug Allergy 05-19-2022 RASH, Other [facility] Comment on above: YEAST INFECTIONS (1 source) Amoxicillin Drug Allergy [facility] Repository (1 source) Amoxicillin Drug Allergy 10-14-2024 [facility] Repository Medications Current Medications Medication Drug Class(es) Dates Sig (Normalized) Sig (Original) acetaminophen 325 mg oral tablet (2 sources) Start: 07-21-2011 Tylenol 325 mg oral tablet Dose : 650 mg = 2 tab(s), Oral, q4h, PRN for pain, # 120 tab(s), 0 Refill(s) Start Date: 07/21/11 Status: Ordered [id number] 200 actuat albuterol 0.09 mg/actuat metered dose inhaler (8 sources) beta2-Adrenergic Agonist Start: 05-19-2022 Albuterol Sulfate 90 mcg/actuation HFA aerosol inhaler Active 2 NMA INHALATION NEEDED as needed for COPD May 19, 2022 1:00am Start: 05-19-2022 Albuterol Sulf ate Active 2 INH INHALATION NEEDED May 19, 2022 12:00am atorvastatin 10 mg oral tablet (8 sources) HMG-CoA Reductase Inhibitor Start: 05-19-2022 take [...] DULoxetine 60 mg delayed release oral capsule (8 sources) Serotonin and Norepinephrine Reuptake Inhibitor Start: [...] 12:00am Ferrous Sulfate 28 mg iron Tablet (7 sources) Start: 05-19-2022 take 1 tablet by mouth once daily Ferrous Sulfate 28 mg iron Tablet Active 28 mg PO DAILY May 19, 2022 1:00am 30 actuat fluticasone furoate 0.2 mg/actuat / vilanterol 0.025 mg/actuat dry powder inhaler (8 sources) Corticosteroid, beta2-Adrenergic Agonist Start: 05-19-2022 Fluticasone Furoate-Vilanterol 200-25 mcg/dose blister with device Active 1 NMA INHALATION DAILY May 19, 2022 1:00am Start: 05-19-2022 Fluticasone Fu roate-Vilanterol Active 1 INH INHALATION DAILY May 19, 2022 12:00am folic acid 1 mg oral tablet (8 sources) Start: 05-19-2022 take 2 tablets by mouth twice daily Folic Acid 1 mg tablet Active 2 mg PO TWICE A DAY May 19, 2022 1:00am Start: 05-19-2022 take 2 mg by mouth twice daily Folic Acid Active 2 MG PO TWICE A DAY May 19, 2022 12:00am hydroxychloroquine sulfate 200 mg oral tablet (8 sources) Antimalarial, Antirheumatic Agent Start: 05-19-2022 take 1 tablet by mouth twice daily Hydroxychloroquine 200 mg tablet Active 200 mg PO TWICE A DAY May 19, 2022 1:00am leucovorin 15 mg oral tablet (8 sources) Folate Analog Start: 05-19-2022 Leucovorin Calcium 15 mg tablet Active 15 mg PO May 19, 2022 1:00am methotrexate 2.5 mg oral tablet (8 sources) Folate Analog Metabolic Inhibitor Start: 05-19-2022 Methotrexate Sodium 2.5 mg tablet Active 20 mg PO May 19, 2022 1:00am Start: 05-19-2022 Methotrexate S odium Active 20 MG PO May 19, 2022 12:00am Multivitamin preparation (1 source) Start: 05-19-2022 take 1 tablet by mouth once daily Multivitamin Active 1 TABLET PO DAILY May 19, 2022 12:00am Multivitamin Tablet (7 sources) Start: 05-19-2022 Multivitamin Tablet Active 1 {tbl} PO DAILY May 19, 2022 1:00am ondansetron 4 mg disintegrating oral tablet (10 sources) Serotonin-3 Receptor Antagonist Start: 10-14-2024 take 1 tablet by mouth every eight hours as needed for nausea Ondansetron 4 mg tablet,disintegrat ing Active 4 mg PO EVERY 8 HOURS NEEDED as needed for Nausea 10 3 0 October 14, 2024 10:06pm pantoprazole 40 mg delayed release oral tablet (8 sources) Proton Pump Inhibitor Start: 05-19-2022 take 1 tablet by mouth once daily Pantoprazole 40 mg tablet,delayed release (DR/EC) Active 40 mg PO DAILY May 19, 2022 1:00am predniSONE 10 mg oral tablet (8 sources) Start: 05-19-2022 Prednisone 10 mg tablet Active 10 mg PO NEEDED as needed for RHEUMATOID ARTHRITIS May 19, 2022 1:00am Tirzepatide (Weight Loss) (4 sources) Start: 10-17-2024 Tirzepatide (Weight Loss) (Zepbound) 5 [...] (primary) hypertension] Onset: 5 Chronic Gastrointestinal hemorrhage (10 sources) Gastrointestinal hemorrhage; Translations: [Hemorrhage of anus and rectum] Onset: 5 10-17-2024 Episodic Other aftercare (1 source) Long-term current use of drug therapy; Translations: [Other retirement (current) drug therapy] Episodic Other connective tissue disease (1 source) Fibromyalgia; Translations: [Fibromyalgia] Episodic Other gastrointestinal disorders (1 source) 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; 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] Chronic Other gastrointestinal disorders (6 sources) Diarrhea; Translations: [Diarrhea, unspecified] 10-17-2024 Episodic Rheumatoid arthritis and related disease (2 sources) [...] Test Name Value Interpretation Reference Range Facility Absolute lymphocyte countOrd ered By: Maria Liriano on 11-13-2024 Lymphocytes Auto (Unsp spec) [#/Vol] 1.87 10*3/uL 0.83-4.51 [facility] Absolute neutrophil countOrd ered By: [facility] Deandra on 11-13-2024 Neutrophils (Bld) [#/Vol] 4.1 10*3/uL 2.0-7.7 [facility] Anion gap in Serum or Plasma Ordered By: Mariahanane Liriano on 11-13-2024 Anion gap [Moles/Vol] 12 mmol/L 5-15 [facility] Automated lymphocyte count a s percentage of total leukocytesOrdered By: Mariahanane Liriano on 11-13-2024 Lymphocytes/100 WBC Auto (Unsp spec) 26.9 % 19-41 [facility] BUN/creatinine ratioOrdered By: [facility] on 11-13-2024 Urea nitrogen/Creatinine [Mass ratio] 10.5 mg/mg 10-20 [facility] Basophil percentageOrdered B y: Maria Liriano on 11-13-2024 Basophils/100 WBC (Bld) 0.4 % 0-1 [facility] Bilirubin, totalOrdered By: Mariahanane Liriano on 11-13-2024 Bilirubin [Mass/Vol] 0.42 mg/dL 0.00-1.30 [facility] CBC W/Diff, Automatedon Absolute Lymph 1.87 X10 3/uL Normal 0.83-4.51 [facility] Comment on above: Performed By: #### L 7000.0700 #### [facility] [address] [place], [place], [id number] Absolute Neut 4.1 X10 3/uL Normal 2.0-7.7 [facility] Comment on above: Performed By: #### L 7000.0700 #### [facility] [address] [place], [address] Basophils/100 WBC (Bld) 0.4 % Normal 0-1 [facility] Comment on above: Performed By: #### L 7000.0700 #### [facility] [address] [place], [address] Eosinophils/100 WBC (Bld) 1.4 % Normal 0-5 [facility] Comment on above: Performed By: #### L 7000.0700 #### [facility] [address] [place], [address] Erythrocyte distribution width (RBC) [Ratio] 13.7 % Normal 11.6-14.6 [facility] Comment on above: Performed By: #### L 7000.0700 #### [facility] [address] [place], [address] Hematocrit (Bld) [Volume fraction] 37.8 % Normal 37-47 [facility] Comment on above: Performed By: #### L 7000.0700 #### [facility] [address] [place], [address] Hemoglobin (Bld) [Mass/Vol] 12.6 g/dL Normal 12.0-15.0 [facility] Comment on above: Performed By: #### L 7000.0700 #### [facility] [address] [place], [address] IG% 0.400 Normal 0.0-0.9 [facility] Comment on above: Result Comment: IG% - Immature Granulocytes (promyelocytes, myelocytes and metamyelocytes) > 1% indicates that a LEFT SHIFT is Present. Performed By: #### L 7000.0700 #### [facility] [address] [place], [address] Lymphocytes/100 WBC (Bld) 26.9 % Normal 19-41 [facility] Comment on above: Performed By: #### L 7000.0700 #### [facility] [address] [place], [address] MCH (RBC) [Entitic mass] 32.1 pg High 27.0-32.0 [facility] Comment on above: Performed By: #### L 7000.0700 #### [facility] [address] [place], [address] MCHC (RBC) [Mass/Vol] 33.3 g/dL Normal 32-36 [facility] Comment on above: Performed By: #### L 7000.0700 #### [facility] [address] [place], [address] MCV (RBC) [Entitic vol] 96.2 fL Normal 81-99 [facility] Comment on above: Performed By: #### L 7000.0700 #### [facility] [address] [place], [address] Monocytes/100 WBC (Bld) 11.7 % High 0-10 [facility] Comment on above: Performed By: #### L 7000.0700 #### [facility] [address] [place], [address] Neutrophils/100 WBC (Bld) 59.2 % Normal 47-70 [facility] Comment on above: Performed By: #### L 7000.0700 #### [facility] [address] [place], [address] Nucleated RBC (Bld) [#/Vol] 0 10*3/uL Normal 0-5 [facility] Comment on above: Performed By: #### L 7000.0700 #### [facility] [address] [place], [address] Platelet mean volume (Bld) [Entitic vol] 10.5 fL Normal 6.2-12.0 [facility] Comment on above: Performed By: #### L 7000.0700 #### [facility] [address] [place], [address] Platelets (Bld) [#/Vol] 233 10*3/uL Normal 150-450 [facility] Comment on above: Performed By: #### L 7000.0700 #### [facility] [address] [place], [address] RBC (Bld) [#/Vol] 3.93 10*6/uL Low 4.2-5.4 [facility] Comment on above: Performed By: #### L 7000.0700 #### [facility] [address] [place], [address] RDW SD 48.8 fl High 35.1-43.9 [facility] Comment on above: Performed By: #### L 7000.0700 #### [facility] [address] [place], [address] WBC (Bld) [#/Vol] 7.0 10*3/uL Normal 4.4-11.0 [facility] Comment on above: Performed By: #### L 7000.0700 #### [facility] [address] [place], [address] Carbon dioxide, total [Moles /volume] in Central venous bloodOrdered By: Maria Liriano on 11-13-2024 CO2 [Moles/Vol] 20.3 mmol/L Low 21.0-32.0 [facility] Chloride assayOrdered By: Sheng Liriano on 11-13-2024 Chloride [Moles/Vol] 105 mmol/L 98-108 [facility] Comprehensive Metabolic Prof ilon 11-13-2024 Albumin [Mass/Vol] 4.3 g/dL Normal 3.5-5.0 [facility] Comment on above: Performed By: #### L 0.0700 #### [facility] [address] [place], [address] Albumin/Globulin [Mass ratio] 1.6 {ratio} Normal 0.9-2.4 [facility] Comment on above: Performed By: #### L 0.0700 #### [facility] [address] [place], [address] ALK PHOS 61 U/L Normal 35-104 [facility] Comment on above: Performed By: #### L 0.0700 #### [facility] [address] [place], [address] ALT [Catalytic activity/Vol] 25 U/L Normal <=34 [facility] Comment on above: Performed By: #### L 0.0700 #### [facility] [address] [place], [address] AST [Catalytic activity/Vol] 19 U/L Normal <=31 [facility] Comment on above: Performed By: #### L 0.0700 #### [facility] [address] [place], [address] Bilirubin [Mass/Vol] 0.42 mg/dL Normal 0.00-1.30 [facility] Comment on above: Performed By: #### L 0.0700 #### [facility] [address] [place], [address] BUN/CRE 10.5 RATIO Normal 10-20 [facility] Comment on above: Performed By: #### L 0.0700 #### [facility] [address] [place], [address] Calcium [Mass/Vol] 9.4 mg/dL Normal 7.6-11.0 [facility] Comment on above: Performed By: #### L 7000.0700 #### [facility] [address] [place], [address] Chloride [Moles/Vol] 105 mmol/L Normal 98-108 [facility] Comment on above: Performed By: #### L 7000.0700 #### [facility] [address] [place], [address] CO2 [Moles/Vol] 20.3 mmol/L Low 21.0-32.0 [facility] Comment on above: Performed By: #### L 7000.0700 #### [facility] [address] [place], [address] Creatinine [Mass/Vol] 0.84 mg/dL Normal 0.70-1.20 [facility] Comment on above: Performed By: #### L 7000.0700 #### [facility] [address] [place], [address] GAP 12 Normal 5-15 [facility] Comment on above: Performed By: #### L 7000.0700 #### [facility] [address] [place], [address] GFR/1.73 sq M.predicted among non-blacks MDRD (S/P/Bld) [Vol rate/Area] 88 mL/min/{1.73_m2} Normal >60 [facility] Comment on above: Result Comment: mL/m in/1.73m2 CKD-EPI Creatinine Equation (2020) Performed By: #### L 7000.0700 #### [facility] [address] [place], [address] Globulin (S) [Mass/Vol] 2.8 g/dL Normal 2.2-4.2 [facility] Comment on above: Performed By: #### L 7000.0700 #### [facility] [address] [place], [address] Glucose [Mass/Vol] 96 mg/dL Normal 70-99 [facility] Comment on above: Performed By: #### L 7000.0700 #### [facility] [address] [place], [address] Potassium [Moles/Vol] 4.2 mmol/L Normal 3.3-5.1 [facility] Comment on above: Performed By: #### L 7000.0700 #### [facility] [address] [place], [address] Sodium [Moles/Vol] 137 mmol/L Normal 133-145 [facility] Comment on above: Performed By: #### L 7000.0700 #### [facility] [address] [place], [address] T PROT 7.0 g/dL Normal 5.9-8.4 [facility] Comment on above: Performed By: #### L 7000.0700 #### [facility] [address] [place], [address] Urea nitrogen [Mass/Vol] 9 mg/dL Normal 4-19 [facility] Comment on above: Performed By: #### L 7000.0700 #### [facility] [address] [place], [address] Eosinophil percentageOrdered By: Maria Liriano on 11-13-2024 Eosinophils/100 WBC (Bld) 1.4 % 0-5 [facility] Erythrocyte distribution wid th ratioOrdered By: Maria Liriano on 11-13-2024 Erythrocyte distribution width (RBC) [Ratio] 13.7 % 11.6-14.6 [facility] Erythrocyte distribution wid th standard deviationOrdered By: Maria Liriano on 11-13-2024 Erythrocyte distribution width (RBC) [Ratio] 48.8 fl High 35.1-43.9 [facility] Glomerular filtration rate ( GFR) estimation/1.73 sq m using serum, plasma, or whole bOrdered By: Maria Liriano on 11-13-2024 GFR/1.73 sq M.predicted among non-blacks MDRD (S/P/Bld) [Vol rate/Area] 88 mL/min/{1.73_m2} >60 [facility] Comment on above: mL/min/1.73m2 CKD-EP I Creatinine Equation (2020) Hematocrit Auto (Bld) [Volum e fraction]Ordered By: Maria Liriano on 11-13-2024 Hematocrit (Bld) [Volume fraction] 37.8 % 37-47 [facility] Hemoglobin measurementOrdere d By: Maria Liriano on 11-13-2024 Hemoglobin (Bld) [Mass/Vol] 12.6 g/dL 12.0-15.0 [facility] Immature granulocytes/100 WB C Auto (Bld)Ordered By: Maria Liriano on 11-13-2024 Immature granulocytes/100 WBC (Bld) 0.400 % 0.0-0.9 [facility] Comment on above: IG% - Immature Granu locytes (promyelocytes, myelocytes and metamyelocytes) > 1% indicates that a LEFT SHIFT is Present. Laboratory - Chemistry and C hemistry - challengeOrdered By: Maria Liriano on 11-13-2024 AST [Catalytic activity/Vol] 19 U/L <32 [facility] MCV (mean corpuscular volume ) determinationOrdered By: Maria Liriano on 11-13-2024 MCV (RBC) [Entitic vol] 96.2 fL 81-99 [facility] Mean corpuscular hemoglobin (MCH) determinationOrdered By: Maria Liriano on 11-13-2024 MCH (RBC) [Entitic mass] 32.1 pg High 27.0-32.0 [facility] Mean corpuscular hemoglobin concentration (MCHC) determinationOrdered By: Maria Liriano on 11-13-2024 MCHC (RBC) [Mass/Vol] 33.3 g/dL 32-36 [facility] Mean platelet volume determi nationOrdered By: Maria Liriano on 11-13-2024 Platelet mean volume (Bld) [Entitic vol] 10.5 fL 6.2-12.0 [facility] Monocyte percentageOrdered B y: Maria Liriano on 11-13-2024 Monocytes/100 WBC (Bld) 11.7 % High 0-10 [facility] Neutrophil percentageOrdered By: Maria Liriano on 11-13-2024 Neutrophils/100 WBC (Bld) 59.2 % 47-70 [facility] Nucleated red blood cell per centageOrdered By: Maria Liriano on 11-13-2024 Nucleated RBC/100 WBC (Bld) [Ratio] 0 % 0-5 [facility] Platelet countOrdered By: Sheng Liriano on 11-13-2024 Platelets (Bld) [#/Vol] 233 10*3/uL 150-450 [facility] Potassium measurement (mass/ volume)Ordered By: Maria Liriano on 11-13-2024 Potassium (Unsp spec) [Mass/Vol] 4.2 mmol/L 3.3-5.1 [facility] RBC Auto (Bld) [#/Vol]Ordere d By: Maria Liriano on 11-13-2024 RBC (Bld) [#/Vol] 3.93 10*6/uL Low 4.2-5.4 [facility] Serum creatinine measurement (mass/volume)Ordered By: Maria Liriano on 11-13-2024 Creatinine [Mass/Vol] 0.84 mg/dL 0.70-1.20 [facility] Serum globulin measurementOr dered By: Maria Liriano on 11-13-2024 Globulin (S) [Mass/Vol] 2.8 g/dL 2.2-4.2 [facility] Serum glucose measurement (m ass/volume)Ordered By: Maria Liriano on 11-13-2024 Glucose [Mass/Vol] 96 mg/dL 70-99 [facility] Serum or plasma alanine jordan otransferase (ALT) measurementOrdered By: Maria Liriano on 11-13-2024 ALT [Catalytic activity/Vol] 25 U/L <35 [facility] Serum or plasma albumin chey urement (mass/volume)Ordered By: Maria Liriano on 11-13-2024 Albumin [Mass/Vol] 4.3 g/dL 3.5-5.0 [facility] Serum or plasma albumin/glob ulin mass ratioOrdered By: Maria Liriano on 11-13-2024 Albumin/Globulin [Mass ratio] 1.6 {ratio} 0.9-2.4 [facility] Serum or plasma alkaline yony sphatase measurementOrdered By: Maria Liriano on 11-13-2024 ALP [Catalytic activity/Vol] 61 U/L 35-104 [facility] Serum or plasma calcium chey urement (mass/volume)Ordered By: Maria Liriano on 11-13-2024 Calcium [Mass/Vol] 9.4 mg/dL 7.6-11.0 [facility] Serum or plasma urea nitroge n measurement (mass/volume)Ordered By: Maria Liriano on 11-13-2024 Urea nitrogen [Mass/Vol] 9 mg/dL 4-19 [facility] Sodium levelOrdered By: Elana Liriano on 11-13-2024 Sodium [Moles/Vol] 137 mmol/L 133-145 [facility] Total proteinOrdered By: Jersey Liriano on 11-13-2024 Protein [Mass/Vol] 7.0 g/dL 5.9-8.4 [facility] White blood cell (WBC) count Ordered By: Maria Liriano on 11-13-2024 WBC (Bld) [#/Vol] 7.0 10*3/uL 4.4-11.0 [facility] Calprotectin, Stoolon [address] 443 ug/g Abnormal 0-120 [facility] Comment on above: Result Comment: Conc entration Interpretation Follow-Up < 5 - 50 ug/g Normal None >50 -120 ug/g Borderline Re-evaluate in 4-6 weeks >120 ug/g Abnormal Repeat as clinically indicated Performed at: - [facility] [id number] [employer] Agent: Fracisco Gallagher MD, Phone: [phone] Performed By: #### L [id number] #### [facility] [address] [place], [place] [address] [place], [address] Calprotectin stoolOrdered By : Sheila Ray on 10-20-2024 Calprotectin stool 443 ug/g High 0-120 [facility] Comment on above: Concentration Interp retation Follow-Up< 5 - 50 ug/g Normal None>50 -120 ug/g Borderline Re-evaluate in 4-6 weeks >120 ug/g Abnormal Repeat as clinically indicatedPerformed at: - [facility] [address] [id number] Director: Fracisco Gallagher MD, Phone: [phone] Absolute lymphocyte countOrd ered By: Sheila Ray on 10-17-2024 Lymphocytes Auto (Unsp spec) [#/Vol] 2.39 10*3/uL 0.83-4.51 [facility] Absolute neutrophil countOrd ered By: Sheila Ray on 10-17-2024 Neutrophils (Bld) [#/Vol] 4.4 10*3/uL 2.0-7.7 [facility] Automated lymphocyte count a s percentage of total leukocytesOrdered By: Sheila Ray on 10-17-2024 Lymphocytes/100 WBC Auto (Unsp spec) 31.7 % 19-41 [facility] Basophil percentageOrdered B y: Sheila Ray on 10-17-2024 Basophils/100 WBC (Bld) 0.5 % 0-1 [facility] CBC W/Diff, Automatedon 10-08-2024 Absolute Lymph 2.39 X10 3/uL Normal 0.83-4.51 [facility] Comment on above: Performed By: #### L 7000.0700 #### [facility] [address] [place], [address] Absolute Neut 4.4 X10 3/uL Normal 2.0-7.7 [facility] Comment on above: Performed By: #### L 7000.0700 #### [facility] [address] [place], [address] Basophils/100 WBC (Bld) 0.5 % Normal 0-1 [facility] Comment on above: Performed By: #### L 7000.0700 #### [facility] [address] [place], [address] Eosinophils/100 WBC (Bld) 1.3 % Normal 0-5 [facility] Comment on above: Performed By: #### L 7000.0700 #### [facility] [address] [place], [address] Erythrocyte distribution width (RBC) [Ratio] 13.1 % Normal 11.6-14.6 [facility] Comment on above: Performed By: #### L 7000.0700 #### [facility] [address] [place], [address] Hematocrit (Bld) [Volume fraction] 39.0 % Normal 37-47 [facility] Comment on above: Performed By: #### L 7000.0700 #### [facility] [address] [place], [address] Hemoglobin (Bld) [Mass/Vol] 12.8 g/dL Normal 12.0-15.0 [facility] Comment on above: Performed By: #### L 7000.0700 #### [facility] [address] [place], [address] IG% 0.300 Normal 0.0-0.9 [facility] Comment on above: Result Comment: IG% - Immature Granulocytes (promyelocytes, myelocytes and metamyelocytes) > 1% indicates that a LEFT SHIFT is Present. Performed By: #### L 7000.0700 #### [facility] [address] [place], [address] Lymphocytes/100 WBC (Bld) 31.7 % Normal 19-41 [facility] Comment on above: Performed By: #### L 7000.0700 #### [facility] [address] [place], [address] MCH (RBC) [Entitic mass] 31.4 pg Normal 27.0-32.0 [facility] Comment on above: Performed By: #### L 7000.0700 #### [facility] [address] [place], [address] MCHC (RBC) [Mass/Vol] 32.8 g/dL Normal 32-36 [facility] Comment on above: Performed By: #### L 7000.0700 #### [facility] [address] [place], [address] MCV (RBC) [Entitic vol] 95.6 fL Normal 81-99 [facility] Comment on above: Performed By: #### L 7000.0700 #### [facility] [address] [place], [address] Monocytes/100 WBC (Bld) 7.3 % Normal 0-10 [facility] Comment on above: Performed By: #### L 7000.0700 #### [facility] [address] [place], [address] Neutrophils/100 WBC (Bld) 58.9 % Normal 47-70 [facility] Comment on above: Performed By: #### L 7000.0700 #### [facility] [address] [place], [address] Nucleated RBC (Bld) [#/Vol] 0 10*3/uL Normal 0-5 [facility] Comment on above: Performed By: #### L 7000.0700 #### [facility] [address] [place], [address] Platelet mean volume (Bld) [Entitic vol] 10.4 fL Normal 6.2-12.0 [facility] Comment on above: Performed By: #### L 7000.0700 #### [facility] [address] [place], [address] Platelets (Bld) [#/Vol] 229 10*3/uL Normal 150-450 [facility] Comment on above: Performed By: #### L 7000.0700 #### [facility] [address] [place], [address] RBC (Bld) [#/Vol] 4.08 10*6/uL Low 4.2-5.4 [facility] Comment on above: Performed By: #### L 7000.0700 #### [facility] [address] [place], [address] RDW SD 46.1 fl High 35.1-43.9 [facility] Comment on above: Performed By: #### L 7000.0700 #### [facility] [address] [place], [address] WBC (Bld) [#/Vol] 7.5 10*3/uL Normal 4.4-11.0 [facility] Comment on above: Performed By: #### L 7000.0700 #### [facility] [address] [place], [address] CRPon 10-17-2024 C-REACTIVE PROT 13.10 mg/L High 0.0-3.0 [facility] Comment on above: Performed By: #### L 7000.0700 #### [facility] [address] [place], [address] Eosinophil percentageOrdered By: Sheila Ray on 10-17-2024 Eosinophils/100 WBC (Bld) 1.3 % 0-5 [facility] Erythrocyte Sed Rateon 10-17 SED RATE 15 mm/hr Normal 0-30 [facility] Comment on above: Performed By: #### L 7000.0700 #### [facility] [address] [place], [address] Erythrocyte distribution wid th ratioOrdered By: Sheila Ray on 10-17-2024 Erythrocyte distribution width (RBC) [Ratio] 13.1 % 11.6-14.6 [facility] Erythrocyte distribution wid th standard deviationOrdered By: Sheila Ray on 10-17-2024 Erythrocyte distribution width (RBC) [Ratio] 46.1 fl High 35.1-43.9 [facility] Erythrocyte sedimentation ra teOrdered By: Sheila Ray on 10-17-2024 ESR (Bld) [Velocity] 15 mm/h 0-30 [facility] Gastroenterology Visit Repor ton 10-17-2024 Gastroenterology Visit Report [facility]enter[facility] [address] [place] [address] OFFICE VISIT Date of Service: 10/17/24 MR#: [id number] Acct: [id number] Name: MCKAYLA KAUFFMAN Rep #: [id number] : 1980 Provider: SHENG Zarate Age/Sex: 44/F Location: [facility] Status: Signed Intake Vital Signs 10/14/24 [...] 2.5 mg tablet 20 mg PO TH 01/10/23 01/10/23 His tory multivitamin 1 tab PO DAILY [...] Reports prior hx of colonoscopy in 2021. [facility] Medical History (Updated 10/17/24 @ 07:38 by [...] to the office today for establishment with [facility]. [facility] ED .12.01 with abdominal pain and bloody diarrhea. Hx of diverticulitis. CBC with leukocytosis but pt on steroids. CT showing enteritis CT abd/pelvis .12.01 1. Long segment wall thickening, hyperenhancement and fat stranding of the proximal descending colon, which is indeterminate in etiology, and may represent enteritis or inflammatory bowel disease. Colonoscopy is recommended for further evaluation. 2. Minimal colonic diverticulosis. No intra-abdominal abscess, ascites or free air. Stool; negative for c dif and enteric pathogens OV 6.10.25 Pt continues with bleeding and loose stools. [...] and Positive (more content not included)... Normal [facility] Hematocrit Auto (Bld) [Volum e fraction]Ordered By: Sheila Ray on 10-17-2024 Hematocrit (Bld) [Volume fraction] 39.0 % 37-47 [facility] Hemoglobin measurementOrdere d By: Sheila Ray on 10-17-2024 Hemoglobin (Bld) [Mass/Vol] 12.8 g/dL 12.0-15.0 [facility] Immature granulocytes/100 WB C Auto (Bld)Ordered By: Sheila Ray on 10-17-2024 Immature granulocytes/100 WBC (Bld) 0.300 % 0.0-0.9 [facility] Comment on above: IG% - Immature Granu locytes (promyelocytes, myelocytes and metamyelocytes) > 1% indicates that a LEFT SHIFT is Present. MCV (mean corpuscular volume ) determinationOrdered By: Sheila Ray on 06-10-2025 MCV (RBC) [Entitic vol] 95.6 fL 81-99 [facility] Mean corpuscular hemoglobin (MCH) determinationOrdered By: Sheila Ray on 10-17-2024 MCH (RBC) [Entitic mass] 31.4 pg 27.0-32.0 [facility] Mean corpuscular hemoglobin concentration (MCHC) determinationOrdered By: Sheila Ray on 10-17-2024 MCHC (RBC) [Mass/Vol] 32.8 g/dL 32-36 [facility] Mean platelet volume determi nationOrdered By: Sheila Ray on 10-17-2024 Platelet mean volume (Bld) [Entitic vol] 10.4 fL 6.2-12.0 [facility] Monocyte percentageOrdered B y: Sheila Ray on 10-17-2024 Monocytes/100 WBC (Bld) 7.3 % 0-10 [facility] Neutrophil percentageOrdered By: Sheila Ray on 10-17-2024 Neutrophils/100 WBC (Bld) 58.9 % 47-70 [facility] Nucleated red blood cell per centageOrdered By: Sheila Ray on 10-17-2024 Nucleated RBC/100 WBC (Bld) [Ratio] 0 % 0-5 [facility] Platelet countOrdered By: Gissell Ray on 10-17-2024 Platelets (Bld) [#/Vol] 229 10*3/uL 150-450 [facility] RBC Auto (Bld) [#/Vol]Ordere d By: Sheila Ray on 10-17-2024 RBC (Bld) [#/Vol] 4.08 10*6/uL Low 4.2-5.4 [facility] Serum or plasma C reactive p rotein measurement (mass/volume)Ordered By: Sheila Ray on 10-17-2024 CRP [Mass/Vol] 13.10 mg/L High 0.0-3.0 [facility] White blood cell (WBC) count Ordered By: Sheila Ray on 10-17-2024 WBC (Bld) [#/Vol] 7.5 10*3/uL 4.4-11.0 [facility] Abdomen/Pelvis W IV Cont ONL Yon 06-07-2025 Abdomen/Pelvis W IV Cont ONLY [facility] Imaging Services [address] [place], [place] [address] Abdomen/Pelvis W IV Cont ONLY MR#: [id number] Acct: [id number] Name: MCKAYLA KAUFFMAN Rep #: [id number] : 1980 F 44 From: Larissa Avila nd, MD PCP: Dr. Coral Martinez MD Status: REG ER Study: Abdomen/Pelvis W IV Cont ONLY Date of Exam: Exam# [id number] Ordering Dr: Sam Combs DO PROCEDURE: ABDOMEN/PELVIS [...] abscess, ascites or free air. Reading Location: [facility] CC: Dr. Coral Martinez MD; Dr. Sam Combs DO Iv Therapy Nurse: Signed Normal [facility] Absolute lymphocyte countOrd ered By: Sam Combs on 10-14-2024 Lymphocytes Auto (Unsp spec) [#/Vol] 0.99 10*3/uL 0.83-4.51 [facility] Absolute neutrophil countOrd ered By: Sam Combs on 10-14-2024 Neutrophils (Bld) [#/Vol] 10.9 10*3/uL High 2.0-7.7 [facility] Anion gap in Serum or Plasma Ordered By: Sam Combs on 10-14-2024 Anion gap [Moles/Vol] 11 mmol/L 5-15 [facility] Automated lymphocyte count a s percentage of total leukocytesOrdered By: Sam Combs on 10-14-2024 Lymphocytes/100 WBC Auto (Unsp spec) 7.8 % Low 19-41 [facility] BUN/creatinine ratioOrdered By: Sam Combs on 10-14-2024 Urea nitrogen/Creatinine [Mass ratio] 5.5 mg/mg Low 10-20 [facility] Basophil percentageOrdered B y: Sam Combs on 10-14-2024 Basophils/100 WBC (Bld) 0.3 % 0-1 [facility] Bilirubin Test strip Ql (U)O rdered By: Sam Combs on 10-14-2024 Bilirubin Ql (U) 1 mg/dL High Negative [facility] Comment on above: COLOR OF URINE MAY A FFECT DIPSTICK RESULTS. Bilirubin, totalOrdered By: Sam Combs on 10-14-2024 Bilirubin [Mass/Vol] 0.47 mg/dL 0.00-1.30 [facility] CBC W/Diff, Automatedon Absolute Lymph 0.99 X10 3/uL Normal 0.83-4.51 [facility] Comment on above: Performed By: #### L 500.4050, L501.2450, L100.0100 ####[facility] [address] [place], [address] Absolute Neut 10.9 X10 3/uL High 2.0-7.7 [facility] Comment on above: Performed By: #### L 500.4050, L501.2450, L100.0100 ####[facility] [address] [place], [address] Basophils/100 WBC (Bld) 0.3 % Normal 0-1 [facility] Comment on above: Performed By: #### L 500.4050, L501.2450, L100.0100 ####[facility] [address] [place], [address] Eosinophils/100 WBC (Bld) 0.2 % Normal 0-5 [facility] Comment on above: Performed By: #### L 500.4050, L501.2450, L100.0100 ####[facility] [address] [place], [address] Erythrocyte distribution width (RBC) [Ratio] 13.2 % Normal 11.6-14.6 [facility] Comment on above: Performed By: #### L 500.4050, L501.2450, L100.0100 ####[facility] [address] [place], [address] Hematocrit (Bld) [Volume fraction] 42.6 % Normal 37-47 [facility] Comment on above: Performed By: #### L 500.4050, L501.2450, L100.0100 ####[facility] [address] [place], [address] Hemoglobin (Bld) [Mass/Vol] 14.2 g/dL Normal 12.0-15.0 [facility] Comment on above: Performed By: #### L 500.4050, L501.2450, L100.0100 ####[facility] [address] [place], [address] IG% 0.500 Normal 0.0-0.9 [facility] Comment on above: Result Comment: IG% - Immature Granulocytes (promyelocytes, myelocytes and metamyelocytes) > 1% indicates that a LEFT SHIFT is Present. Performed By: #### L 500.4050, L501.2450, L100.0100 ####[facility] [address] [place], [address] Lymphocytes/100 WBC (Bld) 7.8 % Low 19-41 [facility] Comment on above: Performed By: #### L 500.4050, L501.2450, L100.0100 ####[facility] [address] [place], [address] MCH (RBC) [Entitic mass] 31.5 pg Normal 27.0-32.0 [facility] Comment on above: Performed By: #### L 500.4050, L501.2450, L100.0100 ####[facility] [address] [place], [address] MCHC (RBC) [Mass/Vol] 33.3 g/dL Normal 32-36 [facility] Comment on above: Performed By: #### L 500.4050, L501.2450, L100.0100 ####[facility] [address] [place], [address] MCV (RBC) [Entitic vol] 94.5 fL Normal 81-99 [facility] Comment on above: Performed By: #### L 500.4050, L501.2450, L100.0100 ####[facility] [address] [place], [address] Monocytes/100 WBC (Bld) 6.3 % Normal 0-10 [facility] Comment on above: Performed By: #### L 500.4050, L501.2450, L100.0100 ####[facility] [address] [place], [address] Neutrophils/100 WBC (Bld) 84.9 % High 47-70 [facility] Comment on above: Performed By: #### L 500.4050, L501.2450, L100.0100 ####[facility] [address] [place], [address] Nucleated RBC (Bld) [#/Vol] 0 10*3/uL Normal 0-5 [facility] Comment on above: Performed By: #### L 500.4050, L501.2450, L100.0100 ####[facility] [address] [place], [address] Platelet mean volume (Bld) [Entitic vol] 10.1 fL Normal 6.2-12.0 [facility] Comment on above: Performed By: #### L 500.4050, L501.2450, L100.0100 ####[facility] [address] [place], [address] Platelets (Bld) [#/Vol] 246 10*3/uL Normal 150-450 [facility] Comment on above: Performed By: #### L 500.4050, L501.2450, L100.0100 ####[facility] [address] [place], [address] RBC (Bld) [#/Vol] 4.51 10*6/uL Normal 4.2-5.4 [facility] Comment on above: Performed By: #### L 500.4050, L501.2450, L100.0100 ####[facility] [address] [place], [address] RDW SD 45.7 fl High 35.1-43.9 [facility] Comment on above: Performed By: #### L 500.4050, L501.2450, L100.0100 ####[facility] [address] [place], [address] WBC (Bld) [#/Vol] 12.8 10*3/uL High 4.4-11.0 [facility] Comment on above: Performed By: #### L 500.4050, L501.2450, L100.0100 ####[facility] [address] [place], [address] CDIFF (PCR)on 10-14-2024 CDIFF Pending 027 027 NAP1-B1 Presumptive Negative *for epidemiolologic???use C. Diff PCR Negative- No toxigenic C. Diff Detected Normal [facility] Comment on above: Performed By: #### M 100.637, L400.0001, L400.7600, M100.6796 ####[facility] [address] [place], [address] Carbon dioxide, total [Moles /volume] in Central venous bloodOrdered By: Sam Combs on 10-14-2024 CO2 [Moles/Vol] 24.5 mmol/L 21.0-32.0 [facility] Chloride assayOrdered By: Billy Combs on 10-14-2024 Chloride [Moles/Vol] 104 mmol/L 98-108 [facility] Clostridium difficile detect ion by polymerase chain reactionOrdered By: Sam Combs on 10-14-2024 C. difficile DNA NATHAN+probe Ql (Unsp spec) [facility] Comprehensive Metabolic Prof ilon 10-14-2024 Albumin [Mass/Vol] 4.6 g/dL Normal 3.5-5.0 [facility] Comment on above: Performed By: #### L 500.4050, L501.2450, L100.0100 ####[facility] [address] [place], [address] Albumin/Globulin [Mass ratio] 1.5 {ratio} Normal 0.9-2.4 [facility] Comment on above: Performed By: #### L 500.4050, L501.2450, L100.0100 ####[facility] [address] [place], [address] ALK PHOS 64 U/L Normal 35-104 [facility] Comment on above: Performed By: #### L 500.4050, L501.2450, L100.0100 ####[facility] [address] [place], [address] ALT [Catalytic activity/Vol] 30 U/L Normal <=34 [facility] Comment on above: Performed By: #### L 500.4050, L501.2450, L100.0100 ####[facility] [address] [place], [address] AST [Catalytic activity/Vol] 24 U/L Normal <=31 [facility] Comment on above: Performed By: #### L 500.4050, L501.2450, L100.0100 ####[facility] [address] [place], [address] Bilirubin [Mass/Vol] 0.47 mg/dL Normal 0.00-1.30 [facility] Comment on above: Performed By: #### L 500.4050, L501.2450, L100.0100 ####[facility] [address] [place], [address] BUN/CRE 5.5 RATIO Low 10-20 [facility] Comment on above: Performed By: #### L 500.4050, L501.2450, L100.0100 ####[facility] [address] [place], [address] Calcium [Mass/Vol] 9.6 mg/dL Normal 7.6-11.0 [facility] Comment on above: Performed By: #### L 500.4050, L501.2450, L100.0100 ####[facility] [address] [place], [address] Chloride [Moles/Vol] 104 mmol/L Normal 98-108 [facility] Comment on above: Performed By: #### L 500.4050, L501.2450, L100.0100 ####[facility] [address] [place], [address] CO2 [Moles/Vol] 24.5 mmol/L Normal 21.0-32.0 [facility] Comment on above: Performed By: #### L 500.4050, L501.2450, L100.0100 ####[facility] [address] [place], [address] Creatinine [Mass/Vol] 0.82 mg/dL Normal 0.70-1.20 [facility] Comment on above: Performed By: #### L 500.4050, L501.2450, L100.0100 ####[facility] [address] [place], [address] ECRCL 93.68 ml/min Normal 50-250 [facility] Comment on above: Performed By: #### L 500.4050, L501.2450, L100.0100 ####[facility] [address] [place], [address] GAP 11 Normal 5-15 [facility] Comment on above: Performed By: #### L 500.4050, L501.2450, L100.0100 ####[facility] [address] [place], [address] GFR/1.73 sq M.predicted among non-blacks MDRD (S/P/Bld) [Vol rate/Area] 91 mL/min/{1.73_m2} Normal >60 [facility] Comment on above: Result Comment: mL/m in/1.73m2 CKD-EPI Creatinine Equation (2020) Performed By: #### L 500.4050, L501.2450, L100.0100 ####[facility] [address] [place], [address] Globulin (S) [Mass/Vol] 3.0 g/dL Normal 2.2-4.2 [facility] Comment on above: Performed By: #### L 500.4050, L501.2450, L100.0100 ####[facility] [address] [place], [address] Glucose [Mass/Vol] 97 mg/dL Normal 70-99 [facility] Comment on above: Performed By: #### L 500.4050, L501.2450, L100.0100 ####[facility] [address] [place], [address] Potassium [Moles/Vol] 3.6 mmol/L Normal 3.3-5.1 [facility] Comment on above: Performed By: #### L 500.4050, L501.2450, L100.0100 ####[facility] [address] [place], [address] Sodium [Moles/Vol] 139 mmol/L Normal 133-145 [facility] Comment on above: Performed By: #### L 500.4050, L501.2450, L100.0100 ####[facility] [address] [place], [address] T PROT 7.5 g/dL Normal 5.9-8.4 [facility] Comment on above: Performed By: #### L 500.4050, L501.2450, L100.0100 ####[facility] [address] [place], [address] Urea nitrogen [Mass/Vol] 5 mg/dL Normal 4-19 [facility] Comment on above: Performed By: #### L 500.4050, L501.2450, L100.0100 ####[facility] [address] [place], [address] ENTERIC PATHOGEN PANEL STOOL on 10-14-2024 EP PANEL Not detected for Campylobacter group, Salmonella species, Shigella species, Vibrio Group, Yersinia enterocolitica, EHEC (Shiga Toxin 1, Shiga Toxin 2), Norovirus Gl/Gll, and Rotavirus A. Other common stool pathogens are not detected on this panel include: Aeromonas/Plesiomonas or parasites. Order testing for these organisms separately if suspected. This is an amplified DNA test which makes it both specific and sensitive. Normal Reference Range = Not Detected Nucleic acid amplification test method CAMPYLOBACTER Not Detected Norovirus Not Detected Rotavirus Not Detected Salmonella Not Detected Shiga Toxin Not Detected Shigella sp. Not Detected VIBRIO Not Detected Yersinia Not Detected Normal [facility] Comment on above: Performed By: #### L 7000.0700 #### [facility] [address] [place], [address] Emergency Department Summary on 10-14-2024 Emergency Department Summary [facility] Medical Records Department [address] [place] [address] Emergency Department Summary 10/14/24 MR#: [id number] Acct: [id number] Name: MCKAYLA KAUFFMAN Rep #: [id number] : 1980 44 From: Sam Combs DO PCP: Dr. Coral Martinez MD Status:REG ER Location: ED HPI History of Present Illness Chief Complaint: GI Bleed [facility] Medical History Wears contact lenses Wears glasses [...] imaging studie (more content not included)... Normal [facility] Eosinophil percentageOrdered By: Sam Combs on 10-14-2024 Eosinophils/100 WBC (Bld) 0.2 % 0-5 [facility] Erythrocyte distribution wid th ratioOrdered By: Sam Combs on 10-14-2024 Erythrocyte distribution width (RBC) [Ratio] 13.2 % 11.6-14.6 [facility] Erythrocyte distribution wid th standard deviationOrdered By: Sam Combs on 10-14-2024 Erythrocyte distribution width (RBC) [Ratio] 45.7 fl High 35.1-43.9 [facility] Glomerular filtration rate ( GFR) estimation/1.73 sq m using serum, plasma, or whole bOrdered By: Sam Combs on 10-14-2024 GFR/1.73 sq M.predicted among non-blacks MDRD (S/P/Bld) [Vol rate/Area] 91 mL/min/{1.73_m2} >60 [facility] Comment on above: mL/min/1.73m2 CKD-EP I Creatinine Equation (2020) Hematocrit Auto (Bld) [Volum e fraction]Ordered By: Sam Combs on 10-14-2024 Hematocrit (Bld) [Volume fraction] 42.6 % 37-47 [facility] Hemoglobin measurementOrdere d By: Sam Combs on 10-14-2024 Hemoglobin (Bld) [Mass/Vol] 14.2 g/dL 12.0-15.0 [facility] Immature granulocytes/100 WB C Auto (Bld)Ordered By: Sam Combs on 10-14-2024 Immature granulocytes/100 WBC (Bld) 0.500 % 0.0-0.9 [facility] Comment on above: IG% - Immature Granu locytes (promyelocytes, myelocytes and metamyelocytes) > 1% indicates that a LEFT SHIFT is Present. Ketones Test strip Ql (U)Ord ered By: Sam Combs on 10-14-2024 Ketones Ql (U) 5 mg/dl High Negative [facility] - Chemistry and C hemistry - challengeOrdered By: Sam Combs on 10-14-2024 AST [Catalytic activity/Vol] 24 U/L <32 [facility] Lipaseon 10-14-2024 Lipase [Catalytic activity/Vol] 27 U/L Normal 13-75 [facility] Comment on above: Result Comment: Manas ro note: LIPASE revised reference range effective 22. New Lipase methodology. Expected to produce lower values than the previous assay method. NEW Reference Range: 13 - 75 U/L Performed By: #### L 500.4050, L501.2450, L100.0100 ####[facility] [address] [place], [address] Lipase measurementOrdered By : Sam Combs on 10-14-2024 Lipase [Catalytic activity/Vol] 27 U/L 13-75 [facility] Comment on above: Please note:LIPASE r evised reference range effective 22. New Lipase methodology. Expected to produce lower values than the previous assay method. NEW Reference Range: 13 - 75 U/L MCV (mean corpuscular volume ) determinationOrdered By: Sam Combs on 10-14-2024 MCV (RBC) [Entitic vol] 94.5 fL 81-99 [facility] Mean corpuscular hemoglobin (MCH) determinationOrdered By: Sam Combs on 10-14-2024 MCH (RBC) [Entitic mass] 31.5 pg 27.0-32.0 [facility] Mean corpuscular hemoglobin concentration (MCHC) determinationOrdered By: Sam Combs on 10-14-2024 MCHC (RBC) [Mass/Vol] 33.3 g/dL 32-36 [facility] Mean platelet volume determi nationOrdered By: Sam Combs on 10-14-2024 Platelet mean volume (Bld) [Entitic vol] 10.1 fL 6.2-12.0 [facility] Microscopic analysis of urin e for red blood cells (RBC)Ordered By: Sam Combs on 10-14-2024 Microscopic analysis of urine for red blood cells (RBC) 0 SEEN /hpf 0-5 [facility] Monocyte percentageOrdered B y: Sam Combs on 10-14-2024 Monocytes/100 WBC (Bld) 6.3 % 0-10 [facility] Mucus LM Ql (Urine sed)Order ed By: Sam Combs on 10-14-2024 Mucus Ql (Urine sed) 0 SEEN /hpf [facility] Neutrophil percentageOrdered By: Sam Combs on 10-14-2024 Neutrophils/100 WBC (Bld) 84.9 % High 47-70 [facility] Nitrite Test strip Ql (U)Ord ered By: Sam Combs on 10-14-2024 Nitrite Ql (U) Negative Negative [facility] Nucleated red blood cell per centageOrdered By: Sam Combs on 10-14-2024 Nucleated RBC/100 WBC (Bld) [Ratio] 0 % 0-5 [facility] Platelet countOrdered By: Billy Combs on 10-14-2024 Platelets (Bld) [#/Vol] 246 10*3/uL 150-450 [facility] Potassium measurement (mass/ volume)Ordered By: Sam Combs on 10-14-2024 Potassium (Unsp spec) [Mass/Vol] 3.6 mmol/L 3.3-5.1 [facility] ,Urineon 10-14-2024 Beta HCG ( test) Ql (U) Negative Normal [facility] Comment on above: Order Comment: COLOR OF URINE MAY AFFECT DIPSTICK RESULTS. Result Comment: Very dilute urine specimens, as indicated by a low specific gravity, may not contain title insurance sales representative levels of hCG. If is still suspected, a first morning urine specimen should be collected 48 hours later and tested. Performed By: #### M 100.637, L400.0001, L400.7600, M100.6796 ####[facility] [id number] [place], [place], [address] Protein Test strip Ql (U)Ord ered By: Sam Combs on 10-14-2024 Protein Ql (U) 30 mg/dl High Negative [facility] RBC Auto (Bld) [#/Vol]Ordere d By: Sam Combs on 10-14-2024 RBC (Bld) [#/Vol] 4.51 10*6/uL 4.2-5.4 [facility] Serum creatinine measurement (mass/volume)Ordered By: Sam Combs on 10-14-2024 Creatinine [Mass/Vol] 0.82 mg/dL 0.70-1.20 [facility] Serum globulin measurementOr dered By: Sam Combs on 10-14-2024 Globulin (S) [Mass/Vol] 3.0 g/dL 2.2-4.2 [facility] Serum glucose measurement (m ass/volume)Ordered By: Sam Combs on 10-14-2024 Glucose [Mass/Vol] 97 mg/dL 70-99 [facility] Serum or plasma alanine jordan otransferase (ALT) measurementOrdered By: Sam Combs on 10-14-2024 ALT [Catalytic activity/Vol] 30 U/L <35 [facility] Serum or plasma albumin chey urement (mass/volume)Ordered By: Sam Combs on 10-14-2024 Albumin [Mass/Vol] 4.6 g/dL 3.5-5.0 [facility] Serum or plasma albumin/glob ulin mass ratioOrdered By: Sam Combs on 10-14-2024 Albumin/Globulin [Mass ratio] 1.5 {ratio} 0.9-2.4 [facility] Serum or plasma alkaline yony sphatase measurementOrdered By: Sam Combs on 10-14-2024 ALP [Catalytic activity/Vol] 64 U/L 35-104 [facility] Serum or plasma calcium chey urement (mass/volume)Ordered By: Sam Combs on 10-14-2024 Calcium [Mass/Vol] 9.6 mg/dL 7.6-11.0 [facility] Serum or plasma urea nitroge n measurement (mass/volume)Ordered By: Sam Combs on 10-14-2024 Urea nitrogen [Mass/Vol] 5 mg/dL 4-19 [facility] Sodium levelOrdered By: David Combs on 10-14-2024 Sodium [Moles/Vol] 139 mmol/L 133-145 [facility] Squamous epithelial cells de tection in urine sediment by light microscopyOrdered By: Sam Combs on 10-14-2024 Epithelial cells.squamous LM Ql (Urine sed) 0-5 SEEN /hpf 5-10 [facility] Total proteinOrdered By: Tana Combs on 10-14-2024 Protein [Mass/Vol] 7.5 g/dL 5.9-8.4 [facility] Transitional cells detection in urine sediment by light microscopyOrdered By: Sam Combs on 10-14-2024 Transitional cells LM Ql (Urine sed) 0-5 SEEN /hpf 0-5 [facility] Urinalysis, Completeon 10-14 BACTERIA 4+ /hpf Normal None Seen [facility] Comment on above: Order Comment: COLOR OF URINE MAY AFFECT DIPSTICK RESULTS.CLEAN CATCH Performed By: #### M 100.637, L400.0001, L400.7600, M100.6796 ####[facility] [id number] [place], [address] CAST,FINE GRAN 0-5 SEEN Normal 0-5 [facility] Comment on above: Order Comment: COLOR OF URINE MAY AFFECT DIPSTICK RESULTS.CLEAN CATCH Performed By: #### M 100.637, L400.0001, L400.7600, M100.6796 ####[facility] [id number] [place], [address] EPI,SQUAMOUS 0-5 SEEN Normal 5-10 [facility] Comment on above: Order Comment: COLOR OF URINE MAY AFFECT DIPSTICK RESULTS.CLEAN CATCH Performed By: #### M 100.637, L400.0001, L400.7600, M100.6796 ####[facility] [id number] [place], [address] EPI,TRANSITION 0-5 SEEN Normal 0-5 [facility] Comment on above: Order Comment: COLOR OF URINE MAY AFFECT DIPSTICK RESULTS.CLEAN CATCH Performed By: #### M 100.637, L400.0001, L400.7600, M100.6796 ####[facility] [id number] [place], [address] WBC 0-5 SEEN Normal 0-5 [facility] Comment on above: Order Comment: COLOR OF URINE MAY AFFECT DIPSTICK RESULTS.CLEAN CATCH Performed By: #### M 100.637, L400.0001, L400.7600, M100.6796 ####[facility] [id number] [place], [address] Mucus Ql (Urine sed) 0 SEEN Normal [facility] Comment on above: Order Comment: COLOR OF URINE MAY AFFECT DIPSTICK RESULTS.CLEAN CATCH Performed By: #### M 100.637, L400.0001, L400.7600, M100.6796 ####[facility] [id number] [place], [address] RBC 0 SEEN Normal 0-5 [facility] Comment on above: Order Comment: COLOR OF URINE MAY AFFECT DIPSTICK RESULTS.CLEAN CATCH Performed By: #### M 100.637, L400.0001, L400.7600, M100.6796 ####[facility] [address] [place], [address] Urine clarityOrdered By: Tana Combs on 10-14-2024 Clarity (U) Cloudy Clear [facility] Urine color determinationOrd ered By: Sam Combs on 10-14-2024 Color (U) Genny Yellow [facility] Urine glucose detectionOrder ed By: Sam Combs on 10-14-2024 Glucose Ql (U) Normal mg/dl Normal [facility] Urine leukocyte esterase det ection by dipstickOrdered By: Sam Combs on 10-14-2024 Leukocyte esterase Test strip Ql (U) 25 /ul High Negative [facility] Urine pHOrdered By: Sam valentine on 10-14-2024 pH (U) 5.0 [pH] 5.0 - 8.0 [facility] Urine testOrdered By: Sam Combs on 10-14-2024 HCG ( test) Ql (U) Negative [facility] Comment on above: Very dilute urine sp ecimens, as indicated by a low specificgravity, may not contain title insurance sales representative levels of hCG. If is still suspected, a first morning urinespecimen should be collected 48 hours later and tested. Urine sediment bacteria coun t by microscopy (number/high power field)Ordered By: Sam Combs on 10-14-2024 Bacteria LM.HPF (Urine sed) [#/Area] 4 /[HPF] None Seen [facility] Urine sediment fine granular cast count by microscopy (number/low power field)Ordered By: Sam Combs on 10-14-2024 Fine Granular Casts LM.LPF (Urine sed) [#/Area] 0-5 SEEN /lpf 0-5 [facility] Urine specific gravity measu rementOrdered By: Sam Combs on 10-14-2024 Specific gravity (U) [Rel density] 1.030 1.002-1.030 [facility] Urine urobilinogen measureme ntOrdered By: Sam Combs on 10-14-2024 Urobilinogen Ql (U) Normal mg/dl Normal [facility] White blood cell (WBC) count Ordered By: Sam Combs on 10-14-2024 WBC (Bld) [#/Vol] 12.8 10*3/uL High 4.4-11.0 [facility] White blood cell countOrdere d By: Sam Combs on 10-14-2024 White blood cell count 0-5 SEEN /hpf 0-5 [facility] Abdomen Limitedon 09-26-2024 Abdomen Limited [facility] Services [address] [place], [place] [address] Abdomen Limited MR#: [id number] Acct: [id number] Name: MCKAYLA KAUFFMAN Rep #: [id number] : 1980 F [id number] From: Skip branch MD PCP: Dr. Coral Martinez MD Status: REG CLI Study: Abdomen Limited Date of Exam: 09/26/24 Exam# [id number] Ordering Dr: Maria Liriano MD PROCEDURE: ABDOMEN [...] right lobe of the liver. Reading Location: [facility] CC: Dr. Coral Martinez MD; Dr. Maria Liriano MD Iv Therapy Nurse: Signed Normal [facility] Absolute lymphocyte countOrd ered By: Maria Liriano on 09-13-2024 Lymphocytes Auto (Unsp spec) [#/Vol] 2.20 10*3/uL 0.83-4.51 [facility] Absolute neutrophil countOrd ered By: Maria Liriano on 09-13-2024 Neutrophils (Bld) [#/Vol] 3.9 10*3/uL 2.0-7.7 [facility] Anion gap in Serum or Plasma Ordered By: Maria Liriano on 09-13-2024 Anion gap [Moles/Vol] 12 mmol/L 5-15 [facility] Automated lymphocyte count a s percentage of total leukocytesOrdered By: Maria Liriano on 09-13-2024 Lymphocytes/100 WBC Auto (Unsp spec) 31.9 % 19-41 [facility] BUN/creatinine ratioOrdered By: Maria Liriano on 09-13-2024 Urea nitrogen/Creatinine [Mass ratio] 7.7 mg/mg Low 10-20 [facility] Basophil percentageOrdered B y: Maria Liriano on 09-13-2024 Basophils/100 WBC (Bld) 0.6 % 0-1 [facility] Bilirubin, totalOrdered By: Maria Liriano on 09-13-2024 Bilirubin [Mass/Vol] 0.31 mg/dL 0.00-1.30 [facility] CBC W/Diff, Automatedon Absolute Lymph 2.20 X10 3/uL Normal 0.83-4.51 [facility] Comment on above: Performed By: #### L 100.0100, L500.4050 #### [facility] [address] [place], [address] Absolute Neut 3.9 X10 3/uL Normal 2.0-7.7 [facility] Comment on above: Performed By: #### L 100.0100, L500.4050 #### [facility] [address] [place], [address] Basophils/100 WBC (Bld) 0.6 % Normal 0-1 [facility] Comment on above: Performed By: #### L 100.0100, L500.4050 #### [facility] [address] [place], [address] Eosinophils/100 WBC (Bld) 1.2 % Normal 0-5 [facility] Comment on above: Performed By: #### L 100.0100, L500.4050 #### [facility] [address] [place], [address] Erythrocyte distribution width (RBC) [Ratio] 13.1 % Normal 11.6-14.6 [facility] Comment on above: Performed By: #### L 100.0100, L500.4050 #### [facility] [address] [place], [address] Hematocrit (Bld) [Volume fraction] 41.5 % Normal 37-47 [facility] Comment on above: Performed By: #### L 100.0100, L500.4050 #### [facility] [address] [place], [address] Hemoglobin (Bld) [Mass/Vol] 13.8 g/dL Normal 12.0-15.0 [facility] Comment on above: Performed By: #### L 100.0100, L500.4050 #### [facility] [address] [place], [address] IG% 0.100 Normal 0.0-0.9 [facility] Comment on above: Result Comment: IG% - Immature Granulocytes (promyelocytes, myelocytes and metamyelocytes) > 1% indicates that a LEFT SHIFT is Present. Performed By: #### L 100.0100, L500.4050 #### [facility] [address] [place], [address] Lymphocytes/100 WBC (Bld) 31.9 % Normal 19-41 [facility] Comment on above: Performed By: #### L 100.0100, L500.4050 #### [facility] [address] [place], [address] MCH (RBC) [Entitic mass] 31.4 pg Normal 27.0-32.0 [facility] Comment on above: Performed By: #### L 100.0100, L500.4050 #### [facility] [address] [place], [address] MCHC (RBC) [Mass/Vol] 33.3 g/dL Normal 32-36 [facility] Comment on above: Performed By: #### L 100.0100, L500.4050 #### [facility] [address] [place], [address] MCV (RBC) [Entitic vol] 94.5 fL Normal 81-99 [facility] Comment on above: Performed By: #### L 100.0100, L500.4050 #### [facility] [address] [place], [address] Monocytes/100 WBC (Bld) 10.0 % Normal 0-10 [facility] Comment on above: Performed By: #### L 100.0100, L500.4050 #### [facility] [address] [place], [address] Neutrophils/100 WBC (Bld) 56.2 % Normal 47-70 [facility] Comment on above: Performed By: #### L 100.0100, L500.4050 #### [facility] [address] [place], [address] Nucleated RBC (Bld) [#/Vol] 0 10*3/uL Normal 0-5 [facility] Comment on above: Performed By: #### L 100.0100, L500.4050 #### [facility] [address] [place], [address] Platelet mean volume (Bld) [Entitic vol] 10.6 fL Normal 6.2-12.0 [facility] Comment on above: Performed By: #### L 100.0100, L500.4050 #### [facility] [address] [place], [address] Platelets (Bld) [#/Vol] 243 10*3/uL Normal 150-450 [facility] Comment on above: Performed By: #### L 100.0100, L500.4050 #### [facility] [address] [place], [address] RBC (Bld) [#/Vol] 4.39 10*6/uL Normal 4.2-5.4 [facility] Comment on above: Performed By: #### L 100.0100, L500.4050 #### [facility] [address] [place], [address] RDW SD 45.3 fl High 35.1-43.9 [facility] Comment on above: Performed By: #### L 100.0100, L500.4050 #### [facility] [address] [place], [address] WBC (Bld) [#/Vol] 6.9 10*3/uL Normal 4.4-11.0 [facility] Comment on above: Performed By: #### L 100.0100, L500.4050 #### [facility] [address] [place], [address] Carbon dioxide, total [Moles /volume] in Central venous bloodOrdered By: Maria Liriano on 09-13-2024 CO2 [Moles/Vol] 22.0 mmol/L 21.0-32.0 [facility] Chloride assayOrdered By: Sheng Liriano on 09-13-2024 Chloride [Moles/Vol] 102 mmol/L 98-108 [facility] Comprehensive Metabolic Prof ilon 09-13-2024 Albumin [Mass/Vol] 4.3 g/dL Normal 3.5-5.0 [facility] Comment on above: Performed By: #### L 100.0100, L500.4050 #### [facility] [address] [place], [address] Albumin/Globulin [Mass ratio] 1.4 {ratio} Normal 0.9-2.4 [facility] Comment on above: Performed By: #### L 100.0100, L500.4050 #### [facility] [address] [place], [address] ALK PHOS 58 U/L Normal 35-104 [facility] Comment on above: Performed By: #### L 100.0100, L500.4050 #### [facility] [address] [place], [address] ALT [Catalytic activity/Vol] 38 U/L High <=34 [facility] Comment on above: Performed By: #### L 100.0100, L500.4050 #### [facility] [address] [place], [address] AST [Catalytic activity/Vol] 23 U/L Normal <=31 [facility] Comment on above: Performed By: #### L 100.0100, L500.4050 #### [facility] [address] [place], [address] Bilirubin [Mass/Vol] 0.31 mg/dL Normal 0.00-1.30 [facility] Comment on above: Performed By: #### L 100.0100, L500.4050 #### [facility] [address] [place], [address] BUN/CRE 7.7 RATIO Low 10-20 [facility] Comment on above: Performed By: #### L 100.0100, L500.4050 #### [facility] [address] [place], [address] Calcium [Mass/Vol] 9.6 mg/dL Normal 7.6-11.0 [facility] Comment on above: Performed By: #### L 100.0100, L500.4050 #### [facility] [address] [place], [address] Chloride [Moles/Vol] 102 mmol/L Normal 98-108 [facility] Comment on above: Performed By: #### L 100.0100, L500.4050 #### [facility] [address] [place], [address] CO2 [Moles/Vol] 22.0 mmol/L Normal 21.0-32.0 [facility] Comment on above: Performed By: #### L 100.0100, L500.4050 #### [facility] [address] [place], [address] Creatinine [Mass/Vol] 0.82 mg/dL Normal 0.70-1.20 [facility] Comment on above: Performed By: #### L 100.0100, L500.4050 #### [facility] [address] [place], [address] GAP 12 Normal 5-15 [facility] Comment on above: Performed By: #### L 100.0100, L500.4050 #### [facility] [address] [place], [address] GFR/1.73 sq M.predicted among non-blacks MDRD (S/P/Bld) [Vol rate/Area] 90 mL/min/{1.73_m2} Normal >60 [facility] Comment on above: Result Comment: mL/m in/1.73m2 CKD-EPI Creatinine Equation (2020) Performed By: #### L 100.0100, L500.4050 #### [facility] [address] [place], [address] Globulin (S) [Mass/Vol] 3.0 g/dL Normal 2.2-4.2 [facility] Comment on above: Performed By: #### L 100.0100, L500.4050 #### [facility] [address] [place], [address] Glucose [Mass/Vol] 103 mg/dL High 70-99 [facility] Comment on above: Performed By: #### L 100.0100, L500.4050 #### [facility] [address] [place], [address] Potassium [Moles/Vol] 4.0 mmol/L Normal 3.3-5.1 [facility] Comment on above: Performed By: #### L 100.0100, L500.4050 #### [facility] [address] [place], [address] Sodium [Moles/Vol] 136 mmol/L Normal 133-145 [facility] Comment on above: Performed By: #### L 100.0100, L500.4050 #### [facility] [address] [place], [address] T PROT 7.3 g/dL Normal 5.9-8.4 [facility] Comment on above: Performed By: #### L 100.0100, L500.4050 #### [facility] [address] [place], [address] Urea nitrogen [Mass/Vol] 6 mg/dL Normal 4-19 [facility] Comment on above: Performed By: #### L 100.0100, L500.4050 #### [facility] [address] [place], [address] Eosinophil percentageOrdered By: Maria Liriano on 09-13-2024 Eosinophils/100 WBC (Bld) 1.2 % 0-5 [facility] Erythrocyte distribution wid th ratioOrdered By: Maria Liriano on 09-13-2024 Erythrocyte distribution width (RBC) [Ratio] 13.1 % 11.6-14.6 [facility] Erythrocyte distribution wid th standard deviationOrdered By: Maria Liriano on 09-13-2024 Erythrocyte distribution width (RBC) [Ratio] 45.3 fl High 35.1-43.9 [facility] Glomerular filtration rate ( GFR) estimation/1.73 sq m using serum, plasma, or whole bOrdered By: Maria Liriano on 09-13-2024 GFR/1.73 sq M.predicted among non-blacks MDRD (S/P/Bld) [Vol rate/Area] 90 mL/min/{1.73_m2} >60 [facility] Comment on above: mL/min/1.73m2 CKD-EP I Creatinine Equation (2020) Hematocrit Auto (Bld) [Volum e fraction]Ordered By: Maria Liriano on 09-13-2024 Hematocrit (Bld) [Volume fraction] 41.5 % 37-47 [facility] Hemoglobin measurementOrdere d By: Maria Liriano on 09-13-2024 Hemoglobin (Bld) [Mass/Vol] 13.8 g/dL 12.0-15.0 [facility] Immature granulocytes/100 WB C Auto (Bld)Ordered By: Maria Liriano on 09-13-2024 Immature granulocytes/100 WBC (Bld) 0.100 % 0.0-0.9 [facility] Comment on above: IG% - Immature Granu locytes (promyelocytes, myelocytes and metamyelocytes) > 1% indicates that a LEFT SHIFT is Present. Laboratory - Chemistry and C hemistry - challengeOrdered By: Maria Liriano on 09-13-2024 AST [Catalytic activity/Vol] 23 U/L <32 [facility] MCV (mean corpuscular volume ) determinationOrdered By: Maria Liriano on 09-13-2024 MCV (RBC) [Entitic vol] 94.5 fL 81-99 [facility] Mean corpuscular hemoglobin (MCH) determinationOrdered By: Maria Liriano 09-13-2024 MCH (RBC) [Entitic mass] 31.4 pg 27.0-32.0 [facility] Mean corpuscular hemoglobin concentration (MCHC) determinationOrdered By: Maria Liriano on 09-13-2024 MCHC (RBC) [Mass/Vol] 33.3 g/dL 32-36 [facility] Mean platelet volume determi nationOrdered By: Maria Liriano on 09-13-2024 Platelet mean volume (Bld) [Entitic vol] 10.6 fL 6.2-12.0 [facility] Monocyte percentageOrdered B y: Maria Liriano on 09-13-2024 Monocytes/100 WBC (Bld) 10.0 % 0-10 [facility] Neutrophil percentageOrdered By: Maria Liriano on 09-13-2024 Neutrophils/100 WBC (Bld) 56.2 % 47-70 [facility] Nucleated red blood cell per centageOrdered By: Maria Liriano on 09-13-2024 Nucleated RBC/100 WBC (Bld) [Ratio] 0 % 0-5 [facility] Platelet countOrdered By: Sheng Liriano on 09-13-2024 Platelets (Bld) [#/Vol] 243 10*3/uL 150-450 [facility] Potassium measurement (mass/ volume)Ordered By: Maria Liriano on 09-13-2024 Potassium (Unsp spec) [Mass/Vol] 4.0 mmol/L 3.3-5.1 [facility] RBC Auto (Bld) [#/Vol]Ordere d By: Maria Liriano on 09-13-2024 RBC (Bld) [#/Vol] 4.39 10*6/uL 4.2-5.4 [facility] Serum creatinine measurement (mass/volume)Ordered By: Mraia Liriano on 09-13-2024 Creatinine [Mass/Vol] 0.82 mg/dL 0.70-1.20 [facility] Serum globulin measurementOr dered By: Maria Liriano on 09-13-2024 Globulin (S) [Mass/Vol] 3.0 g/dL 2.2-4.2 [facility] Serum glucose measurement (m ass/volume)Ordered By: Maria Liriano on 09-13-2024 Glucose [Mass/Vol] 103 mg/dL High 70-99 [facility] Serum or plasma alanine jordan otransferase (ALT) measurementOrdered By: Maria Liriano on 09-13-2024 ALT [Catalytic activity/Vol] 38 U/L High <35 [facility] Serum or plasma albumin chey urement (mass/volume)Ordered By: Maria Liriano on 09-13-2024 Albumin [Mass/Vol] 4.3 g/dL 3.5-5.0 [facility] Serum or plasma albumin/glob ulin mass ratioOrdered By: Maria Liriano on 09-13-2024 Albumin/Globulin [Mass ratio] 1.4 {ratio} 0.9-2.4 [facility] Serum or plasma alkaline yony sphatase measurementOrdered By: Maria Liriano on 09-13-2024 ALP [Catalytic activity/Vol] 58 U/L 35-104 [facility] Serum or plasma calcium chey urement (mass/volume)Ordered By: Maria Liriano on 09-13-2024 Calcium [Mass/Vol] 9.6 mg/dL 7.6-11.0 [facility] Serum or plasma urea nitroge n measurement (mass/volume)Ordered By: Maria Liriano on 09-13-2024 Urea nitrogen [Mass/Vol] 6 mg/dL 4-19 [facility] Sodium levelOrdered By: Elana Liriano on 09-13-2024 Sodium [Moles/Vol] 136 mmol/L 133-145 [facility] Total proteinOrdered By: Jersey Liriano on 09-13-2024 Protein [Mass/Vol] 7.3 g/dL 5.9-8.4 [facility] White blood cell (WBC) count Ordered By: Maria Liriano on 09-13-2024 WBC (Bld) [#/Vol] 6.9 10*3/uL 4.4-11.0 [facility] Absolute lymphocyte countOrd ered By: Coral Martinez on 07-22-2024 Lymphocytes Auto (Unsp spec) [#/Vol] 1.80 10*3/uL 0.83-4.51 [facility] Absolute neutrophil countOrd ered By: Coral Martinez on 07-22-2024 Neutrophils (Bld) [#/Vol] 3.8 10*3/uL 2.0-7.7 [facility] Anion gap in Serum or Plasma Ordered By: Coral Juan on 07-22-2024 Anion gap [Moles/Vol] 10 mmol/L 09-21 [facility] Automated lymphocyte count a s percentage of total leukocytesOrdered By: Moeedgardo Juan on 07-22-2024 Lymphocytes/100 WBC Auto (Unsp spec) 28.3 % - [facility] BUN/creatinine ratioOrdered By: [facility] on 07-22-2024 Urea nitrogen/Creatinine [Mass ratio] 10.6 mg/mg 10- [facility] Basophil percentageOrdered B y: Moeedgardo Andinoke on 07-22-2024 Basophils/100 WBC (Bld) 0.9 % 0-1 [facility] Bilirubin, totalOrdered By: Coral Juan on 07-22-2024 Bilirubin [Mass/Vol] 0.21 mg/dL 0.00-1.30 [facility] CBC W/Diff, Automatedon 07-08 Absolute Lymph 1.80 X10 3/uL Normal 0.83-4.51 [facility] Comment on above: Order Comment: Order Date: 07/11/24 Order Info: 0184-1 - CBCD Performed By: #### L 100.0100, L500.4050, L501.9520, L500.4100 #### [facility] [address] [place], [address] Absolute Neut 3.8 X10 3/uL Normal 2.0-7.7 [facility] Comment on above: Order Comment: Order Date: 07/11/24 Order Info: 0184-1 - CBCD Performed By: #### L 100.0100, L500.4050, L501.9520, L500.4100 #### [facility] [address] [place], [address] Basophils/100 WBC (Bld) 0.9 % Normal 0-1 [facility] Comment on above: Order Comment: Order Date: 07/11/24 Order Info: 0184-1 - CBCD Performed By: #### L 100.0100, L500.4050, L501.9520, L500.4100 #### [facility] [facility] [address] [place], [address] Eosinophils/100 WBC (Bld) 1.7 % Normal 0-5 [facility] Comment on above: Order Comment: Order Date: 07/11/24 Order Info: 0184-1 - CBCD Performed By: #### L 100.0100, L500.4050, L501.9520, L500.4100 #### [facility] [address] [place], [address] Erythrocyte distribution width (RBC) [Ratio] 13.7 % Normal 11.6-14.6 [facility] Comment on above: Order Comment: Order Date: 07/11/24 Order Info: 0184-1 - CBCD Performed By: #### L 100.0100, L500.4050, L501.9520, L500.4100 #### [facility] [address] [place], [address] Hematocrit (Bld) [Volume fraction] 38.7 % Normal 37-47 [facility] Comment on above: Order Comment: Order Date: 07/11/24 Order Info: 0184-1 - CBCD Performed By: #### L 100.0100, L500.4050, L501.9520, L500.4100 #### [facility] [address] [place], [address] Hemoglobin (Bld) [Mass/Vol] 12.7 g/dL Normal 12.0-15.0 [facility] Comment on above: Order Comment: Order Date: 07/11/24 Order Info: 0184-1 - CBCD Performed By: #### L 100.0100, L500.4050, L501.9520, L500.4100 #### [facility] [address] [place], [address] IG% 0.300 Normal 0.0-0.9 [facility] Comment on above: Order Comment: Order Date: 07/11/24 Order Info: 0184-1 - CBCD Result Comment: IG% - Immature Granulocytes (promyelocytes, myelocytes and metamyelocytes) > 1% indicates that a LEFT SHIFT is Present. Performed By: #### L 100.0100, L500.4050, L501.9520, L500.4100 #### [facility] [address] [place], [address] Lymphocytes/100 WBC (Bld) 28.3 % Normal 19-41 [facility] Comment on above: Order Comment: Order Date: 07/11/24 Order Info: 0184-1 - CBCD Performed By: #### L 100.0100, L500.4050, L501.9520, L500.4100 #### [facility] [address] [place], [address] MCH (RBC) [Entitic mass] 32.2 pg High 27.0-32.0 [facility] Comment on above: Order Comment: Order Date: 07/11/24 Order Info: 0184-1 - CBCD Performed By: #### L 100.0100, L500.4050, L501.9520, L500.4100 #### [facility] [address] [place], [address] MCHC (RBC) [Mass/Vol] 32.8 g/dL Normal 32-36 [facility] Comment on above: Order Comment: Order Date: 07/11/24 Order Info: 0184-1 - CBCD Performed By: #### L 100.0100, L500.4050, L501.9520, L500.4100 #### [facility] [address] [place], [address] MCV (RBC) [Entitic vol] 98.2 fL Normal 81-99 [facility] Comment on above: Order Comment: Order Date: 07/11/24 Order Info: 0184-1 - CBCD Performed By: #### L 100.0100, L500.4050, L501.9520, L500.4100 #### [facility] [address] [place], [address] Monocytes/100 WBC (Bld) 9.1 % Normal 0-10 [facility] Comment on above: Order Comment: Order Date: 07/11/24 Order Info: 0184-1 - CBCD Performed By: #### L 100.0100, L500.4050, L501.9520, L500.4100 #### [facility] [address] [place], [address] Neutrophils/100 WBC (Bld) 59.7 % Normal 47-70 [facility] Comment on above: Order Comment: Order Date: 07/11/24 Order Info: 0184-1 - CBCD Performed By: #### L 100.0100, L500.4050, L501.9520, L500.4100 #### [facility] [address] [place], [address] Nucleated RBC (Bld) [#/Vol] 0 10*3/uL Normal 0-5 [facility] Comment on above: Order Comment: Order Date: 07/11/24 Order Info: 0184-1 - CBCD Performed By: #### L 100.0100, L500.4050, L501.9520, L500.4100 #### [facility] [address] [place], [address] Platelet mean volume (Bld) [Entitic vol] 9.6 fL Normal 6.2-12.0 [facility] Comment on above: Order Comment: Order Date: 07/11/24 Order Info: 0184-1 - CBCD Performed By: #### L 100.0100, L500.4050, L501.9520, L500.4100 #### [facility] [address] [place], [address] Platelets (Bld) [#/Vol] 240 10*3/uL Normal 150-450 [facility] Comment on above: Order Comment: Order Date: 07/11/24 Order Info: 0184-1 - CBCD Performed By: #### L 100.0100, L500.4050, L501.9520, L500.4100 #### [facility] [address] [place], [address] RBC (Bld) [#/Vol] 3.94 10*6/uL Low 4.2-5.4 [facility] Comment on above: Order Comment: Order Date: 07/11/24 Order Info: 0184-1 - CBCD Performed By: #### L 100.0100, L500.4050, L501.9520, L500.4100 #### [facility] [address] [place], [address] RDW SD 49.8 fl High 35.1-43.9 [facility] Comment on above: Order Comment: Order Date: 07/11/24 Order Info: 0184-1 - CBCD Performed By: #### L 100.0100, L500.4050, L501.9520, L500.4100 #### [facility] [address] [place], [address] WBC (Bld) [#/Vol] 6.4 10*3/uL Normal 4.4-11.0 [facility] Comment on above: Order Comment: Order Date: 07/11/24 Order Info: 0184-1 - CBCD Performed By: #### L 100.0100, L500.4050, L501.9520, L500.4100 #### [facility] [address] [place], [address] Calculated very low density lipoprotein (VLDL) cholesterol measurementOrdered By: Coral Martinez on 07-22-2024 Calculated very low density lipoprotein (VLDL) cholesterol measurement 17 mg/dL 5-40 [facility] VLDL Cholesterol 17 mg/dL 5-40 [facility] Carbon dioxide, total [Moles /volume] in Central venous bloodOrdered By: Coral Martinez on 07-22-2024 CO2 [Moles/Vol] 24.0 mmol/L 21.0-32.0 [facility] Chloride assayOrdered By: Es Martinez on 07-22-2024 Chloride [Moles/Vol] 103 mmol/L 98-108 [facility] Comprehensive Metabolic Prof ilon 07-22-2024 Albumin [Mass/Vol] 4.1 g/dL Normal 3.5-5.0 [facility] Comment on above: Order Comment: Order Date: 07/11/24 Order Info: [id number] - CMP Order Info: [id number] - LIPID Order Info: [id number] - TSH Performed By: #### L 100.0100, L500.4050, L501.9520, L500.4100 #### [facility] [address] [place], [address] Albumin/Globulin [Mass ratio] 1.4 {ratio} Normal 0.9-2.4 [facility] Comment on above: Order Comment: Order Date: 07/11/24 Order Info: [id number] - CMP Order Info: [id number] - LIPID Order Info: [id number] - TSH Performed By: #### L 100.0100, L500.4050, L501.9520, L500.4100 #### [facility] [address] [place], [address] ALK PHOS 70 U/L Normal 35-104 [facility] Comment on above: Order Comment: Order Date: 07/11/24 Order Info: 0786-1 - CMP Order Info: [id number] - LIPID Order Info: 3 - TSH Performed By: #### L 100.0100, L500.4050, L501.9520, L500.4100 #### [facility] [address] [place], [address] ALT [Catalytic activity/Vol] 35 U/L Normal <=34 [facility] Comment on above: Order Comment: Order Date: 07/11/24 Order Info: 785- - CMP Order Info: - LIPID Order Info: [id number] - TSH Performed By: #### L 100.0100, L500.4050, L501.9520, L500.4100 #### [facility] [address] [place], [address] AST [Catalytic activity/Vol] 32 U/L Normal <=31 [facility] Comment on above: Order Comment: Order Date: 07/11/24 Order Info: [id number] - CMP Order Info: - LIPID Order Info: [id number] - TSH Performed By: #### L 100.0100, L500.4050, L501.9520, L500.4100 #### [facility] [address] [place], [address] Bilirubin [Mass/Vol] 0.21 mg/dL Normal 0.00-1.30 [facility] Comment on above: Order Comment: Order Date: 07/11/24 Order Info: [id number] - CMP Order Info: - LIPID Order Info: [id number] - TSH Performed By: #### L 100.0100, L500.4050, L501.9520, L500.4100 #### [facility] [address] [place], [address] BUN/CRE 10.6 RATIO Normal 10-20 [facility] Comment on above: Order Comment: Order Date: 07/11/24 Order Info: [id number] - CMP Order Info: - LIPID Order Info: [id number] - TSH Performed By: #### L 100.0100, L500.4050, L501.9520, L500.4100 #### [facility] [address] [place], [address] Calcium [Mass/Vol] 8.7 mg/dL Normal 7.6-11.0 [facility] Comment on above: Order Comment: Order Date: 07/11/24 Order Info: 07- - CMP Order Info: - LIPID Order Info: [id number] - TSH Performed By: #### L 100.0100, L500.4050, L501.9520, L500.4100 #### [facility] [address] [place], [address] Chloride [Moles/Vol] 103 mmol/L Normal 98-108 [facility] Comment on above: Order Comment: Order Date: 07/11/24 Order Info: 07 - CMP Order Info: - LIPID Order Info: [id number] - TSH Performed By: #### L 100.0100, L500.4050, L501.9520, L500.4100 #### [facility] [address] [place], [address] CO2 [Moles/Vol] 24.0 mmol/L Normal 21.0-32.0 [facility] Comment on above: Order Comment: Order Date: 07/11/24 Order Info: 0786 - CMP Order Info: - LIPID Order Info: [id number] - TSH Performed By: #### L 100.0100, L500.4050, L501.9520, L500.4100 #### [facility] [address] [place], [address] Creatinine [Mass/Vol] 0.83 mg/dL Normal 0.70-1.20 [facility] Comment on above: Order Comment: Order Date: 07/11/24 Order Info: 0786- - CMP Order Info: [id number] - LIPID Order Info: [id number] - TSH Performed By: #### L 100.0100, L500.4050, L501.9520, L500.4100 #### [facility] [address] [place], [address] GAP 10 Normal 5-15 [facility] Comment on above: Order Comment: Order Date: 07/11/24 Order Info: 785- - CMP Order Info: - LIPID Order Info: [id number] - TSH Performed By: #### L 100.0100, L500.4050, L501.9520, L500.4100 #### [facility] [address] [place], [address] GFR/1.73 sq M.predicted among non-blacks MDRD (S/P/Bld) [Vol rate/Area] 89 mL/min/{1.73_m2} Normal >60 [facility] Comment on above: Order Comment: Order Date: 07/11/24 Order Info: 785-05 - CMP Order Info: - LIPID Order Info: [id number] - TSH Result Comment: mL/m in/1.73m2 CKD-EPI Creatinine Equation (2020) Performed By: #### L 100.0100, L500.4050, L501.9520, L500.4100 #### [facility] [address] [place], [address] Globulin (S) [Mass/Vol] 2.9 g/dL Normal 2.2-4.2 [facility] Comment on above: Order Comment: Order Date: 07/11/24 Order Info: 07- - CMP Order Info: - LIPID Order Info: [id number] - TSH Performed By: #### L 100.0100, L500.4050, L501.9520, L500.4100 #### [facility] [address] [place], [address] Glucose [Mass/Vol] 98 mg/dL Normal 70-99 [facility] Comment on above: Order Comment: Order Date: 07/11/24 Order Info: 07-1 - CMP Order Info: [id number] - LIPID Order Info: [id number] - TSH Performed By: #### L 100.0100, L500.4050, L501.9520, L500.4100 #### [facility] [address] [place], [address] Potassium [Moles/Vol] 4.3 mmol/L Normal 3.3-5.1 [facility] Comment on above: Order Comment: Order Date: 07/11/24 Order Info: 785-1 - CMP Order Info: - LIPID Order Info: [id number] - TSH Performed By: #### L 100.0100, L500.4050, L501.9520, L500.4100 #### [facility] [address] [place], [address] Sodium [Moles/Vol] 137 mmol/L Normal 133-145 [facility] Comment on above: Order Comment: Order Date: 07/11/24 Order Info: 785- - CMP Order Info: - LIPID Order Info: 3 - TSH Performed By: #### L 100.0100, L500.4050, L501.9520, L500.4100 #### [facility] [address] [place], [address] T PROT 6.9 g/dL Normal 5.9-8.4 [facility] Comment on above: Order Comment: Order Date: 07/11/24 Order Info: 07 - CMP Order Info: - LIPID Order Info: 3 - TSH Performed By: #### L 100.0100, L500.4050, L501.9520, L500.4100 #### [facility] [address] [place], [address] Urea nitrogen [Mass/Vol] 9 mg/dL Normal 4-19 [facility] Comment on above: Order Comment: Order Date: 07/11/24 Order Info: [id number] - CMP Order Info: - LIPID Order Info: 3 - TSH Performed By: #### L 100.0100, L500.4050, L501.9520, L500.4100 #### [facility] [place], [address] Eosinophil percentageOrdered By: Coral Martinez on 07-22-2024 Eosinophils/100 WBC (Bld) 1.7 % 0-5 [facility] Erythrocyte distribution wid th ratioOrdered By: Coral Martinez on 07-22-2024 Erythrocyte distribution width (RBC) [Ratio] 13.7 % 11.6-14.6 [facility] Erythrocyte distribution wid th standard deviationOrdered By: Coral Martinez on 07-22-2024 Erythrocyte distribution width (RBC) [Entitic vol] 49.8 fL High 35.1-43.9 [facility] Erythrocyte distribution width (RBC) [Ratio] 49.8 fl High 35.1-43.9 [facility] GFR/1.73 sq M.predicted diaan g non-blacks MDRD (S/P/Bld) [Vol rate/Area]Ordered By: Coral Martinez on 07-22-2024 Estimated GFR (MDRD) Non-Af Amer 89 >60 [facility] Comment on above: mL/min/1.73m2 CKD-EP I Creatinine Equation (2020) Glomerular filtration rate ( GFR) estimation/1.73 sq m using serum, plasma, or whole bOrdered By: Coral Martinez on 07-22-2024 GFR/1.73 sq M.predicted among non-blacks MDRD (S/P/Bld) [Vol rate/Area] 89 mL/min/{1.73_m2} >60 [facility] Comment on above: mL/min/1.73m2 CKD-EP I Creatinine Equation (2020) Hematocrit Auto (Bld) [Volum e fraction]Ordered By: Coral Martinez on 07-22-2024 Hematocrit (Bld) [Volume fraction] 38.7 % 37-47 [facility] Hemoglobin measurementOrdere d By: Coral Martinez on 07-22-2024 Hemoglobin (Bld) [Mass/Vol] 12.7 g/dL 12.0-15.0 [facility] Immature granulocytes/100 WB C Auto (Bld)Ordered By: Coral Martinez on 07-22-2024 Immature granulocytes/100 WBC (Bld) 0.300 % 0.0-0.9 [facility] Comment on above: IG% - Immature Granu locytes (promyelocytes, myelocytes and metamyelocytes) > 1% indicates that a LEFT SHIFT is Present. L506.1001on 07-22-2024 Vitamin D 25-OH 25.0 ng/mL Low 30-100 [facility] Comment on above: Order Comment: Order Date: 07/11/24 Order Info: 0786-1 - CMP Order Info: [id number] - LIPID Order Info: 6-3 - TSH Result Comment: Linnea min D Status Deficiency: <20 ng/mL (50nmol/L) Insufficiency: 20-30 ng/mL (50-75 nmol/L) Sufficiency: 30-100 ng/mL (75-250 nmol/L) Toxicity: >100 ng/mL (>250 nmol/L) Performed By: #### L 506.1001 #### [facility] [address] [place], [place], [address] LDL calc ser/plasOrdered By: Coral Martinez on 07-22-2024 Cholesterol in LDL [Mass/Vol] 76 mg/dL [facility] Comment on above: Rojkagkcqq=904-476 m g/dL & Higher Mshc=352 mg/dL or greater LDL Cholesterol, Calculated 76 mg/dL [facility] Comment on above: Origtxagcw=057-990 m g/dL & Higher Jard=556 mg/dL or greater Laboratory - Chemistry and C hemistry - challengeOrdered By: Coral Martinez on 07-22-2024 AST [Catalytic activity/Vol] 32 U/L <32 [facility] Lipid Profileon 07-22-2024 CHOL:HDL 2.31 Normal [facility] Comment on above: Order Comment: Order Date: 07/11/24 Order Info: 0786-1 - CMP Order Info: [id number] - LIPID Order Info: [id number] - TSH Performed By: #### L 100.0100, L500.4050, L501.9520, L500.4100 #### [facility] [address] [place], [place], [address] Cholesterol [Mass/Vol] 163 mg/dL Normal <=200 [facility] Comment on above: Order Comment: Order Date: 07/11/24 Order Info: 07 - CMP Order Info: [id number] - LIPID Order Info: [id number] - TSH Result Comment: Chol esterol level, Desirable <200 mg/dL Borderline high cholesterol 200-239 mg/dL High cholesterol >=240 mg/dL Recommendations of the NCEP Adult Treatment Panel for the following risk-cutoff thresholds for the [place] population. Performed By: #### L 100.0100, L500.4050, L501.9520, L500.4100 #### [facility] [address] [place], [place], [address] Cholesterol in HDL [Mass/Vol] 71 mg/dL Normal [facility] Comment on above: Order Comment: Order Date: 07/11/24 Order Info: 785-05 - CMP Order Info: - LIPID Order Info: [id number] - TSH Result Comment: [place] onal Cholesterol Education Program (NCEP) guidelines: <40 mg/dL: Low HDL-cholesterol (major risk factor for CHD) >= 60 mg/dL: High HDL-cholesterol (negative risk factor for CHD) HDL-cholesterol is affected by a number of factors, e.g. smoking, exercise, hormones, sex and age. Performed By: #### L 100.0100, L500.4050, L501.9520, L500.4100 #### [facility] [address] [place], [address] Cholesterol in LDL [Mass/Vol] 76 mg/dL Normal [facility] Comment on above: Order Comment: Order Date: 07/11/24 Order Info: 0786 - CMP Order Info: - LIPID Order Info: [id number] - TSH Result Comment: Bord xbxxgt=472-126 mg/dL Higher Vmri=822 mg/dL or greater Performed By: #### L 100.0100, L500.4050, L501.9520, L500.4100 #### [facility] [address] [place], [place], [address] Cholesterol in VLDL [Mass/Vol] 17 mg/dL Normal 5-40 [facility] Comment on above: Order Comment: Order Date: 07/11/24 Order Info: 0786-1 - CMP Order Info: [id number] - LIPID Order Info: [id number] - TSH Performed By: #### L 100.0100, L500.4050, L501.9520, L500.4100 #### [facility] [address] [place], [address] Triglyceride [Mass/Vol] 84 mg/dL Normal [facility] Comment on above: Order Comment: Order Date: 07/11/24 Order Info: 0786-1 - CMP Order Info: [id number] - LIPID Order Info: [id number] - TSH Result Comment: The drugs N-Acetylcysteine and Metamizole may falsely depress this assay. Normal range: <150 mg/dL Borderline High: 150-199 mg/dL High: 200-499 mg/dL Very High: >500 mg/dL Performed By: #### L 100.0100, L500.4050, L501.9520, L500.4100 #### [facility] [address] [place], [address] Lymphocytes Auto (Unsp spec) [#/Vol]Ordered By: Coral Martinez on 07-22-2024 Lymphocytes (Bld) [#/Vol] 1.80 10*3/uL 0.83-4.51 [facility] Lymphocytes/100 WBC Auto (Un sp spec)Ordered By: Coral Martinez on 07-22-2024 Lymphocytes/100 WBC (Bld) 28.3 % 19-41 [facility] MCV (mean corpuscular volume ) determinationOrdered By: Coral Martinez on 07-22-2024 MCV (RBC) [Entitic vol] 98.2 fL 81-99 [facility] Mean corpuscular hemoglobin (MCH) determinationOrdered By: Coral Martinez on 07-22-2024 MCH (RBC) [Entitic mass] 32.2 pg High 27.0-32.0 [facility] Mean corpuscular hemoglobin concentration (MCHC) determinationOrdered By: Coral Martinez on 07-22-2024 MCHC (RBC) [Mass/Vol] 32.8 g/dL 32-36 [facility] Mean platelet volume determi nationOrdered By: Coral Martinez on 07-22-2024 Platelet mean volume (Bld) [Entitic vol] 9.6 fL 6.2-12.0 [facility] Monocyte percentageOrdered B y: Coral Martinez on 07-22-2024 Monocytes/100 WBC (Bld) 9.1 % 0-10 [facility] Neutrophil percentageOrdered By: Coral Martinez on 07-22-2024 Neutrophils/100 WBC (Bld) 59.7 % 47-70 [facility] Nucleated red blood cell per centageOrdered By: Coral Martinez on 07-22-2024 Nucleated RBC/100 WBC (Bld) [Ratio] 0 % 0-5 [facility] Platelet countOrdered By: Es Martinez on 07-22-2024 Platelets (Bld) [#/Vol] 240 10*3/uL 150-450 [facility] Potassium (Unsp spec) [Mass/ Vol]Ordered By: Coral Martinez on 07-22-2024 Potassium [Moles/Vol] 4.3 mmol/L 3.3-5.1 [facility] Potassium measurement (mass/ volume)Ordered By: Coral Martinez on 07-22-2024 Potassium (Unsp spec) [Mass/Vol] 4.3 mmol/L 3.3-5.1 [facility] RBC Auto (Bld) [#/Vol]Ordere d By: Coral Martinez on 07-22-2024 RBC (Bld) [#/Vol] 3.94 10*6/uL Low 4.2-5.4 [facility] Screening total cholesterol/ high density lipoprotein (HDL) cholesterol ratioOrdered By: Coral Martinez on 07-22-2024 Cholesterol.total/Lindy sterol in HDL [Mass ratio] 2.31 {ratio} [facility] Serum creatinine measurement (mass/volume)Ordered By: Coral Martinez on 07-22-2024 Creatinine [Mass/Vol] 0.83 mg/dL 0.70-1.20 [facility] Serum globulin measurementOr dered By: Coral Martinez on 07-22-2024 Globulin (S) [Mass/Vol] 2.9 g/dL 2.2-4.2 [facility] Serum glucose measurement (m ass/volume)Ordered By: Coral Martinez on 07-22-2024 Glucose [Mass/Vol] 98 mg/dL 70-99 [facility] Serum or plasma alanine jordan otransferase (ALT) measurementOrdered By: Coral Martinez on 07-22-2024 ALT [Catalytic activity/Vol] 35 U/L <35 [facility] Serum or plasma albumin chey urement (mass/volume)Ordered By: Coral Martinez on 07-22-2024 Albumin [Mass/Vol] 4.1 g/dL 3.5-5.0 [facility] Serum or plasma albumin/glob ulin mass ratioOrdered By: Coral Martinez on 07-22-2024 Albumin/Globulin [Mass ratio] 1.4 {ratio} 0.9-2.4 [facility] Serum or plasma alkaline yony sphatase measurementOrdered By: Coral Martinez on 07-22-2024 ALP [Catalytic activity/Vol] 70 U/L 35-104 [facility] Serum or plasma calcium chey urement (mass/volume)Ordered By: Coral Martinez on 07-22-2024 Calcium [Mass/Vol] 8.7 mg/dL 7.6-11.0 [facility] Serum or plasma cholesterol in HDL measurement (mass/volume)Ordered By: Coral Martinez on 07-22-2024 Cholesterol in HDL [Mass/Vol] 71 mg/dL >40 [facility] Comment on above: National Cholesterol Education Program (NCEP) guidelines:<40 mg/dL: Low HDL-cholesterol (major risk factor for CHD)>= 60 mg/dL: High HDL-cholesterol (negative risk factor for CHD)HDL-cholesterol is affected by a number of factors, e.g. smoking, exercise, hormones, sex and age. Serum or plasma cholesterol measurement (mass/volume)Ordered By: Coral Martinez on 07-22-2024 Cholesterol [Mass/Vol] 163 mg/dL <201 [facility] Comment on above: Cholesterol level, D esirable <200 mg/dLBorderline high cholesterol 200-239 mg/dLHigh cholesterol >=240 mg/dLRecommendations of the NCEP Adult Treatment Panel for the following risk-cutoff thresholds for the [place] population. Serum or plasma urea nitroge n measurement (mass/volume)Ordered By: Coral Martinez on 07-22-2024 Urea nitrogen [Mass/Vol] 9 mg/dL 4-19 [facility] Sodium levelOrdered By: Moe Martinez on 07-22-2024 Sodium [Moles/Vol] 137 mmol/L 133-145 [facility] TSH DL <= 0.005 mIU/L QnOrde red By: Coral Martinez on 07-22-2024 Thyroid Stimulating Hormone (TSH) 0.289 uIU/mL Low 0.300-4.200 [facility] TSH Qn 0.289 uIU/mL Low 0.300-4.200 [facility] Thyroid Stim Hormone (TSH)on 07-22-2024 TSH 0.289 uIU/mL Low 0.300-4.200 [facility] Comment on above: Order Comment: Order Date: 07/11/24 Order Info: [id number] - CMP Order Info: [id number] - LIPID Order Info: [id number] - TSH Performed By: #### L 100.0100, L500.4050, L501.9520, L500.4100 #### [facility] [address] [place] [address]. [place], [address] Total proteinOrdered By: Karo Martinez on 07-22-2024 Protein [Mass/Vol] 6.9 g/dL 5.9-8.4 [facility] Triglycerides measurementOrd ered By: Coral Martinez on 07-22-2024 Triglyceride [Mass/Vol] 84 mg/dL <199 [facility] Comment on above: The drugs N-Acetylcy steine and Metamizole may falsely depress this assay. Normal range: <150 mg/dLBorderline High: 150-199 mg/dLHigh: 200-499 mg/dLVery High: >500 mg/dL Vitamin D, 25-hydroxyOrdered By: Coral Martinez on 07-22-2024 Vitamin D 25-Hydroxy 25.0 ng/mL Low 30-100 [facility] Comment on above: Vitamin D StatusDefi ciency: <20 ng/mL (50nmol/L)Insufficiency: 20-30 ng/mL (50-75 nmol/L)Sufficiency: 30-100 ng/mL (75-250 nmol/L)Toxicity: >100 ng/mL (>250 nmol/L) White blood cell (WBC) count Ordered By: Coral Martinez on 07-22-2024 WBC (Bld) [#/Vol] 6.4 10*3/uL 4.4-11.0 [facility] Absolute lymphocyte countOrd ered By: Maria Liriano on 06-21-2024 Lymphocytes Auto (Unsp spec) [#/Vol] 2.27 10*3/uL 0.83-4.51 [facility] Absolute neutrophil countOrd ered By: Maria Liriano on 06-21-2024 Neutrophils (Bld) [#/Vol] 3.8 10*3/uL 2.0-7.7 [facility] Albumin to globulin ratioOrd ered By: Maria Liriano on 06-21-2024 Albumin/Globulin [Mass ratio] 0.9 {ratio} 0.9-2.4 [facility] Automated lymphocyte count a s percentage of total leukocytesOrdered By: Maria Liriano on 06-21-2024 Lymphocytes/100 WBC Auto (Unsp spec) 33.0 % 19-41 [facility] Basophil percentageOrdered B y: Maria Liriano on 06-21-2024 Basophils/100 WBC (Bld) 0.6 % 0-1 [facility] Bilirubin, totalOrdered By: Maria Liriano on 06-21-2024 Bilirubin [Mass/Vol] 0.30 mg/dL 0.20-1.00 [facility] Comment on above: For patients on eltr ombopag therapy, use of Dimension [place] TBIL is not recommended. Blood urea nitrogen (BUN)/cr eatinine ratioOrdered By: Maria Liriano on 06-21-2024 Urea nitrogen/Creatinine [Mass ratio] 11.6 mg/mg 10-20 [facility] CBC W/Diff, Automatedon 06-10 Absolute Lymph 2.27 X10 3/uL Normal 0.83-4.51 [facility] Comment on above: Performed By: #### L 500.4050, L100.0100 ####[facility] [address] [place], [address] Absolute Neut 3.8 X10 3/uL Normal 2.0-7.7 [facility] Comment on above: Performed By: #### L 500.4050, L100.0100 ####[facility] [address] [place], [address] Basophils/100 WBC (Bld) 0.6 % Normal 0-1 [facility] Comment on above: Performed By: #### L 500.4050, L100.0100 ####[facility] [address] [place], [address] Eosinophils/100 WBC (Bld) 1.6 % Normal 0-5 [facility] Comment on above: Performed By: #### L 500.4050, L100.0100 ####[facility] [address] [place], [address] Erythrocyte distribution width (RBC) [Ratio] 13.6 % Normal 11.6-14.6 [facility] Comment on above: Performed By: #### L 500.4050, L100.0100 ####[facility] [address] [place], [address] Hematocrit (Bld) [Volume fraction] 38.6 % Normal 37-47 [facility] Comment on above: Performed By: #### L 500.4050, L100.0100 ####[facility] [address] [place], [address] Hemoglobin (Bld) [Mass/Vol] 12.7 g/dL Normal 12.0-15.0 [facility] Comment on above: Performed By: #### L 500.4050, L100.0100 ####[facility] [address] [place], [address] IG% 0.100 Normal 0.0-0.9 [facility] Comment on above: Result Comment: IG% - Immature Granulocytes (promyelocytes, myelocytes and metamyelocytes) > 1% indicates that a LEFT SHIFT is Present. Performed By: #### L 500.4050, L100.0100 ####[facility] [address] [place], [address] Lymphocytes/100 WBC (Bld) 33.0 % Normal 19-41 [facility] Comment on above: Performed By: #### L 500.4050, L100.0100 ####[facility] [address] [place], [address] MCH (RBC) [Entitic mass] 32.2 pg High 27.0-32.0 [facility] Comment on above: Performed By: #### L 500.4050, L100.0100 ####[facility] [address] [place], [address] MCHC (RBC) [Mass/Vol] 32.9 g/dL Normal 32-36 [facility] Comment on above: Performed By: #### L 500.4050, L100.0100 ####[facility] [address] [place], [address] MCV (RBC) [Entitic vol] 97.7 fL Normal 81-99 [facility] Comment on above: Performed By: #### L 500.4050, L100.0100 ####[facility] [address] [place], [address] Monocytes/100 WBC (Bld) 9.8 % Normal 0-10 [facility] Comment on above: Performed By: #### L 500.4050, L100.0100 ####[facility] [address] [place], [address] Neutrophils/100 WBC (Bld) 54.9 % Normal 47-70 [facility] Comment on above: Performed By: #### L 500.4050, L100.0100 ####[facility] [address] [place], [address] Nucleated RBC (Bld) [#/Vol] 0 10*3/uL Normal 0-5 [facility] Comment on above: Performed By: #### L 500.4050, L100.0100 ####[facility] [address] [place], [address] Platelet mean volume (Bld) [Entitic vol] 10.4 fL Normal 6.2-12.0 [facility] Comment on above: Performed By: #### L 500.4050, L100.0100 ####[facility] [address] [place], [address] Platelets (Bld) [#/Vol] 248 10*3/uL Normal 150-450 [facility] Comment on above: Performed By: #### L 500.4050, L100.0100 ####[facility] [address] [place], [address] RBC (Bld) [#/Vol] 3.95 10*6/uL Low 4.2-5.4 [facility] Comment on above: Performed By: #### L 500.4050, L100.0100 ####[facility] [address] [place], [address] RDW SD 48.3 fl High 35.1-43.9 [facility] Comment on above: Performed By: #### L 500.4050, L100.0100 ####[facility] [address] [place], [address] WBC (Bld) [#/Vol] 6.9 10*3/uL Normal 4.4-11.0 [facility] Comment on above: Performed By: #### L 500.4050, L100.0100 ####[facility] [address] [place], [address] Carbon dioxide measurementOr dered By: Maria Liriano on 06-21-2024 CO2 [Moles/Vol] 27.0 mmol/L 21.0-32.0 [facility] Chloride measurementOrdered By: Maria Liriano on 06-21-2024 Chloride [Moles/Vol] 104 mmol/L 98-107 [facility] Comprehensive Metabolic Prof ilon 06-21-2024 Albumin [Mass/Vol] 3.6 g/dL Normal 3.2-5.0 [facility] Comment on above: Performed By: #### L 500.4050, L100.0100 ####[facility] [address] [place], [address] Albumin/Globulin [Mass ratio] 0.9 {ratio} Normal 0.9-2.4 [facility] Comment on above: Performed By: #### L 500.4050, L100.0100 ####[facility] [address] [place], [address] ALK P 83 U/L Normal 45-117 [facility] Comment on above: Performed By: #### L 500.4050, L100.0100 ####[facility] [address] [place], [address] ALT [Catalytic activity/Vol] 34 U/L Normal 13-56 [facility] Comment on above: Performed By: #### L 500.4050, L100.0100 ####[facility] [address] [place], [address] AST [Catalytic activity/Vol] 18 U/L Normal 15-37 [facility] Comment on above: Performed By: #### L 500.4050, L100.0100 ####[facility] [address] [place], [address] Bilirubin [Mass/Vol] 0.30 mg/dL Normal 0.20-1.00 [facility] Comment on above: Result Comment: For patients on eltrombopag therapy, use of Dimension [place] TBIL is not recommended. Performed By: #### L 500.4050, L100.0100 ####[facility] [address] [place], [address] BUN/CRE 11.6 RATIO Normal 10-20 [facility] Comment on above: Performed By: #### L 500.4050, L100.0100 ####[facility] [address] [place], [address] CA,Total 8.7 mg/dL Normal 8.5-10.1 [facility] Comment on above: Performed By: #### L 500.4050, L100.0100 ####[facility] [address] [place], [address] Chloride [Moles/Vol] 104 mmol/L Normal 98-107 [facility] Comment on above: Performed By: #### L 500.4050, L100.0100 ####[facility] [address] [place], [address] CO2 [Moles/Vol] 27.0 mmol/L Normal 21.0-32.0 [facility] Comment on above: Performed By: #### L 500.4050, L100.0100 ####[facility] [address] [place], [address] Creatinine [Mass/Vol] 0.86 mg/dL Normal 0.55-1.02 [facility] Comment on above: Result Comment: The validity of the calculated GFR GFRAA in patients over 70 years has not been determined. Clinical correlation is essential. Performed By: #### L 500.4050, L100.0100 ####[facility] [address] [place], [address] EST GFR - AA 92 mL/min Normal >60 [facility] Comment on above: Result Comment: Afri can [place] GFR Calc Performed By: #### L 500.4050, L100.0100 ####[facility] [address] [place], [address] GAP 8 Normal 5-15 [facility] Comment on above: Performed By: #### L 500.4050, L100.0100 ####[facility] [address] [place], [address] GFR/1.73 sq M.predicted among non-blacks MDRD (S/P/Bld) [Vol rate/Area] 76 mL/min/{1.73_m2} Normal >60 [facility] Comment on above: Result Comment: Non- GFR Calc Performed By: #### L 500.4050, L100.0100 ####[facility] [address] [place], [address] Globulin (S) [Mass/Vol] 3.9 g/dL Normal 2.2-4.2 [facility] Comment on above: Performed By: #### L 500.4050, L100.0100 ####[facility] [address] [place], [address] Glucose [Mass/Vol] 98 mg/dL Normal 74-106 [facility] Comment on above: Performed By: #### L 500.4050, L100.0100 ####[facility] [address] [place], [address] Potassium [Moles/Vol] 4.1 mmol/L Normal 3.5-5.1 [facility] Comment on above: Performed By: #### L 500.4050, L100.0100 ####[facility] [address] [place], [address] Sodium [Moles/Vol] 138 mmol/L Normal 136-145 [facility] Comment on above: Performed By: #### L 500.4050, L100.0100 ####[facility] [address] [place], [address] T PROT 7.5 g/dL Normal 6.4-8.2 [facility] Comment on above: Performed By: #### L 500.4050, L100.0100 ####[facility] [address] [place], [address] Urea nitrogen [Mass/Vol] 10 mg/dL Normal 7-18 [facility] Comment on above: Performed By: #### L 500.4050, L100.0100 ####[facility] [address] [place], [place], [address] Eosinophil percentageOrdered By: Maria Liriano on 06-21-2024 Eosinophils/100 WBC (Bld) 1.6 % 0-5 [facility] Erythrocyte distribution wid th ratioOrdered By: Maria Liriano on 06-21-2024 Erythrocyte distribution width (RBC) [Ratio] 13.6 % 11.6-14.6 [facility] Erythrocyte distribution wid th standard deviationOrdered By: Maria Liriano on 06-21-2024 Erythrocyte distribution width (RBC) [Entitic vol] 48.3 fL High 35.1-43.9 [facility] Erythrocyte distribution width (RBC) [Ratio] 48.3 fl High 35.1-43.9 [facility] Estimated glomerular filtrat ion rate (GFR) AmericanOrdered By: Maria Liriano on 06-21-2024 Estimated GFR (MDRD) Amer 92 mL/min >60 [facility] Comment on above: GFR Calc Glomerular filtration rate ( GFR) estimationOrdered By: Maria Liriano on 06-21-2024 Estimated GFR (MDRD) Non-Af Amer 76 mL/min >60 [facility] Comment on above: Non- GFR Calc GFR/1.73 sq M.predicted among non-blacks MDRD (S/P/Bld) [Vol rate/Area] 76 mL/min/{1.73_m2} >60 [facility] Comment on above: Non- GFR Calc Glucose measurementOrdered B y: Maria Liriano on 06-21-2024 Glucose [Mass/Vol] 98 mg/dL 74-106 [facility] Hematocrit Auto (Bld) [Volum e fraction]Ordered By: Maria Liriano on 06-21-2024 Hematocrit (Bld) [Volume fraction] 38.6 % 37-47 [facility] Hemoglobin measurementOrdere d By: Maria Liriano on 06-21-2024 Hemoglobin (Bld) [Mass/Vol] 12.7 g/dL 12.0-15.0 [facility] Immature granulocytes/100 WB C Auto (Bld)Ordered By: Maria Liriano on 06-21-2024 Immature granulocytes/100 WBC (Bld) 0.100 % 0.0-0.9 [facility] Comment on above: IG% - Immature Granu locytes (promyelocytes, myelocytes and metamyelocytes) > 1% indicates that a LEFT SHIFT is Present. Laboratory - Chemistry and C hemistry - challengeOrdered By: Maria Liriano on 06-21-2024 AST [Catalytic activity/Vol] 18 U/L 15-37 [facility] Lymphocytes Auto (Unsp spec) [#/Vol]Ordered By: Maria Liriano on 06-21-2024 Lymphocytes (Bld) [#/Vol] 2.27 10*3/uL 0.83-4.51 [facility] Lymphocytes/100 WBC Auto (Un sp spec)Ordered By: Maria Liriano on 06-21-2024 Lymphocytes/100 WBC (Bld) 33.0 % 19-41 [facility] MCV (mean corpuscular volume ) determinationOrdered By: Maria Liriano on 06-21-2024 MCV (RBC) [Entitic vol] 97.7 fL 81-99 [facility] Mean corpuscular hemoglobin (MCH) determinationOrdered By: Maria Liriano on 06-21-2024 MCH (RBC) [Entitic mass] 32.2 pg High 27.0-32.0 [facility] Mean corpuscular hemoglobin concentration (MCHC) determinationOrdered By: Maria Liriano on 06-21-2024 MCHC (RBC) [Mass/Vol] 32.9 g/dL 32-36 [facility] Mean platelet volume determi nationOrdered By: Maria Liriano on 06-21-2024 Platelet mean volume (Bld) [Entitic vol] 10.4 fL 6.2-12.0 [facility] Monocyte percentageOrdered B y: Maria Liriano on 06-21-2024 Monocytes/100 WBC (Bld) 9.8 % 0-10 [facility] Neutrophil percentageOrdered By: Maria Liriano on 06-21-2024 Neutrophils/100 WBC (Bld) 54.9 % 47-70 [facility] Nucleated red blood cell per centageOrdered By: Maria Liriano on 06-21-2024 Nucleated RBC/100 WBC (Bld) [Ratio] 0 % 0-5 [facility] Platelet countOrdered By: Sheng Liriano on 06-21-2024 Platelets (Bld) [#/Vol] 248 10*3/uL 150-450 [facility] Potassium measurementOrdered By: Maria Liriano on 06-21-2024 Potassium [Moles/Vol] 4.1 mmol/L 3.5-5.1 [facility] RBC Auto (Bld) [#/Vol]Ordere d By: Maria Liriano on 06-21-2024 RBC (Bld) [#/Vol] 3.95 10*6/uL Low 4.2-5.4 [facility] Serum anion gap measurementO rdered By: Maria Liriano on 06-21-2024 Anion gap [Moles/Vol] 8 mmol/L 5-15 [facility] Serum globulin measurementOr dered By: Maria Liriano on 06-21-2024 Globulin (S) [Mass/Vol] 3.9 g/dL 2.2-4.2 [facility] Serum or plasma alanine jordan otransferase (ALT) measurementOrdered By: Maria Liriano on 06-21-2024 ALT [Catalytic activity/Vol] 34 U/L 13-56 [facility] Serum or plasma albumin chey urement (mass/volume)Ordered By: Maria Liriano on 06-21-2024 Albumin [Mass/Vol] 3.6 g/dL 3.2-5.0 [facility] Serum or plasma alkaline yony sphatase measurementOrdered By: Maria Liriano on 06-21-2024 ALP [Catalytic activity/Vol] 83 U/L 45-117 [facility] Serum or plasma calcium chey urement (mass/volume)Ordered By: Maria Liriano on 06-21-2024 Calcium [Mass/Vol] 8.7 mg/dL 8.5-10.1 [facility] Serum or plasma creatinine m easurement (mass/volume)Ordered By: Maria Liriano on 06-21-2024 Creatinine [Mass/Vol] 0.86 mg/dL 0.55-1.02 [facility] Comment on above: The validity of the calculated GFR & GFRAA in patients over 70 years has not been determined. Clinical correlation is essential. Serum or plasma urea nitroge n measurement (mass/volume)Ordered By: Maria Liriano on 06-21-2024 Urea nitrogen [Mass/Vol] 10 mg/dL 7-18 [facility] Sodium levelOrdered By: Elana Liriano on 06-21-2024 Sodium [Moles/Vol] 138 mmol/L 136-145 [facility] Total proteinOrdered By: [place] Liriano on 06-21-2024 Protein [Mass/Vol] 7.5 g/dL 6.4-8.2 [facility] White blood cell (WBC) count Ordered By: Maria Liriano on 06-21-2024 WBC (Bld) [#/Vol] 6.9 10*3/uL 4.4-11.0 [facility] CBC W/Diff, Automatedon 03-10 Absolute Lymph 2.23 X10 3/uL Normal 0.83-4.51 [facility] Comment on above: Performed By: #### L 100.0100, L500.4050 ####[facility] [address] [place], [address] Absolute Neut 5.2 X10 3/uL Normal 2.0-7.7 [facility] Comment on above: Performed By: #### L 100.0100, L500.4050 ####[facility] [address] [place], [address] Basophils/100 WBC (Bld) 0.7 % Normal 0-1 [facility] Comment on above: Performed By: #### L 100.0100, L500.4050 ####[facility] [address] [place], [address] Eosinophils/100 WBC (Bld) 1.7 % Normal 0-5 [facility] Comment on above: Performed By: #### L 100.0100, L500.4050 ####[facility] [address] [place], [address] Erythrocyte distribution width (RBC) [Ratio] 12.7 % Normal 11.6-14.6 [facility] Comment on above: Performed By: #### L 100.0100, L500.4050 ####[facility] [address] [place], [address] Hematocrit (Bld) [Volume fraction] 41.7 % Normal 37-47 [facility] Comment on above: Performed By: #### L 100.0100, L500.4050 ####[facility] [address] [place], [address] Hemoglobin (Bld) [Mass/Vol] 13.5 g/dL Normal 12.0-15.0 [facility] Comment on above: Performed By: #### L 100.0100, L500.4050 ####[facility] [address] [place], [address] IG% 0.200 Normal 0.0-0.9 [facility] Comment on above: Result Comment: IG% - Immature Granulocytes (promyelocytes, myelocytes and metamyelocytes) > 1% indicates that a LEFT SHIFT is Present. Performed By: #### L 100.0100, L500.4050 ####[facility] [address] [place], [address] Lymphocytes/100 WBC (Bld) 27.1 % Normal 19-41 [facility] Comment on above: Performed By: #### L 100.0100, L500.4050 ####[facility] [address] [place], [address] MCH (RBC) [Entitic mass] 31.9 pg Normal 27.0-32.0 [facility] Comment on above: Performed By: #### L 100.0100, L500.4050 ####[facility] [address] [place], [address] MCHC (RBC) [Mass/Vol] 32.4 g/dL Normal 32-36 [facility] Comment on above: Performed By: #### L 100.0100, L500.4050 ####[facility] [address] [place], [address] MCV (RBC) [Entitic vol] 98.6 fL Normal 81-99 [facility] Comment on above: Performed By: #### L 100.0100, L500.4050 ####[facility] [address] [place], [address] Monocytes/100 WBC (Bld) 7.4 % Normal 0-10 [facility] Comment on above: Performed By: #### L 100.0100, L500.4050 ####[facility] [address] [place], [address] Neutrophils/100 WBC (Bld) 62.9 % Normal 47-70 [facility] Comment on above: Performed By: #### L 100.0100, L500.4050 ####[facility] [address] [place], [address] Nucleated RBC (Bld) [#/Vol] 0 10*3/uL Normal 0-5 [facility] Comment on above: Performed By: #### L 100.0100, L500.4050 ####[facility] [address] [place], [address] Platelet mean volume (Bld) [Entitic vol] 10.2 fL Normal 6.2-12.0 [facility] Comment on above: Performed By: #### L 100.0100, L500.4050 ####[facility] [address] [place], [address] Platelets (Bld) [#/Vol] 248 10*3/uL Normal 150-450 [facility] Comment on above: Performed By: #### L 100.0100, L500.4050 ####[facility] [address] [place], [address] RBC (Bld) [#/Vol] 4.23 10*6/uL Normal 4.2-5.4 [facility] Comment on above: Performed By: #### L 100.0100, L500.4050 ####[facility] [address] [place], [address] RDW SD 45.6 fl High 35.1-43.9 [facility] Comment on above: Performed By: #### L 100.0100, L500.4050 ####[facility] [address] [place], [address] WBC (Bld) [#/Vol] 8.2 10*3/uL Normal 4.4-11.0 [facility] Comment on above: Performed By: #### L 100.0100, L500.4050 ####[facility] [address] [place], [address] Comprehensive Metabolic Prof ilon 03-21-2024 Albumin [Mass/Vol] 4.0 g/dL Normal 3.2-5.0 [facility] Comment on above: Performed By: #### L 100.0100, L500.4050 ####[facility] [address] [place], [address] Albumin/Globulin [Mass ratio] 1.1 {ratio} Normal 0.9-2.4 [facility] Comment on above: Performed By: #### L 100.0100, L500.4050 ####[facility] [address] [place], [address] ALK P 78 U/L Normal 45-117 [facility] Comment on above: Performed By: #### L 100.0100, L500.4050 ####[facility] [address] [place], [address] ALT [Catalytic activity/Vol] 38 U/L Normal 13-56 [facility] Comment on above: Performed By: #### L 100.0100, L500.4050 ####[facility] [address] [place], [address] AST [Catalytic activity/Vol] 19 U/L Normal 15-37 [facility] Comment on above: Performed By: #### L 100.0100, L500.4050 ####[facility] [address] [place], [address] Bilirubin [Mass/Vol] 0.40 mg/dL Normal 0.20-1.00 [facility] Comment on above: Result Comment: For patients on eltrombopag therapy, use of Dimension [place] TBIL is not recommended. Performed By: #### L 100.0100, L500.4050 ####[facility] [address] [place], [address] BUN/CRE 14.4 RATIO Normal 10-20 [facility] Comment on above: Performed By: #### L 100.0100, L500.4050 ####[facility] [address] [place], [address] CA,Total 9.1 mg/dL Normal 8.5-10.1 [facility] Comment on above: Performed By: #### L 100.0100, L500.4050 ####[facility] [address] [place], [address] Chloride [Moles/Vol] 104 mmol/L Normal 98-107 [facility] Comment on above: Performed By: #### L 100.0100, L500.4050 ####[facility] [address] [place], [address] CO2 [Moles/Vol] 26.0 mmol/L Normal 21.0-32.0 [facility] Comment on above: Performed By: #### L 100.0100, L500.4050 ####[facility] [address] [place], [address] Creatinine [Mass/Vol] 0.90 mg/dL Normal 0.55-1.02 [facility] Comment on above: Result Comment: The validity of the calculated GFR GFRAA in patients over 70 years has not been determined. Clinical correlation is essential. Performed By: #### L 100.0100, L500.4050 ####[facility] [address] [place], [address] EST GFR - AA 87 mL/min Normal >60 [facility] Comment on above: Result Comment: Afri can [place] GFR Calc Performed By: #### L 100.0100, L500.4050 ####[facility] [address] [place], [address] GAP 6 Normal 5-15 [facility] Comment on above: Performed By: #### L 100.0100, L500.4050 ####[facility] [address] [place], [address] GFR/1.73 sq M.predicted among non-blacks MDRD (S/P/Bld) [Vol rate/Area] 72 mL/min/{1.73_m2} Normal >60 [facility] Comment on above: Result Comment: Non- GFR Calc Performed By: #### L 100.0100, L500.4050 ####[facility] [address] [place], [address] Globulin (S) [Mass/Vol] 3.7 g/dL Normal 2.2-4.2 [facility] Comment on above: Performed By: #### L 100.0100, L500.4050 ####[facility] [address] [place], [address] Glucose [Mass/Vol] 93 mg/dL Normal 74-106 [facility] Comment on above: Performed By: #### L 100.0100, L500.4050 ####[facility] [address] [place], [address] Potassium [Moles/Vol] 4.1 mmol/L Normal 3.5-5.1 [facility] Comment on above: Performed By: #### L 100.0100, L500.4050 ####[facility] [address] [place], [address] Sodium [Moles/Vol] 136 mmol/L Normal 136-145 [facility] Comment on above: Performed By: #### L 100.0100, L500.4050 ####[facility] [address] [place], [address] T PROT 7.7 g/dL Normal 6.4-8.2 [facility] Comment on above: Performed By: #### L 100.0100, L500.4050 ####[facility] [address] [place], [address] Urea nitrogen [Mass/Vol] 13 mg/dL Normal 7-18 [facility] Comment on above: Performed By: #### L 100.0100, L500.4050 ####[facility] [address] [place], [place], [id number] CBC + DIFFon 01-06-2024 Baso # 0.02 x10EE3/UL Normal 0.00 - 0.10 [facility] Comment on above: Performed By: #### 2 51429 #### [facility],[address] [place] [address] 90946 Basophils/100 WBC (Bld) 0.3 % Normal 0.0 - 2.0 [facility] Comment on above: Performed By: #### 2 21366 #### [facility],[address] [place] [address] 67425 CBC + DIFF Normal [facility] Comment on above: Result Comment: CBC- COMPLETE BLOOD COUNT Performed By: #### 2 06285 #### [facility],[address] [place] [address] 39856 EO # 0.12 x10EE3/UL Normal 0.00 - 0.50 [facility] Comment on above: Performed By: #### 2 24455 #### [facility],[address] [place] [address] 72170 Eosinophils/100 WBC (Bld) 1.8 % Normal 0.0 - 7.0 [facility] Comment on above: Performed By: #### 2 12562 #### [facility],[address] [place] [address] 38633 Erythrocyte distribution width (RBC) [Ratio] 13.2 % Normal 12.0 - 15.6 [facility] Comment on above: Performed By: #### 2 57247 #### [facility],[address] [place] [address] 79254 Hematocrit (Bld) [Volume fraction] 39.9 % Normal 34.0 - 46.0 [facility] Comment on above: Performed By: #### 2 77320 #### [facility],[address] [place], [place] [id number] Hemoglobin (Bld) [Mass/Vol] 13.4 g/dL Normal 12.0 - 16.0 [facility] Comment on above: Performed By: #### 2 83676 #### [facility],[address] [place] [address] Lymph # 2.00 x10EE3/UL Normal 0.80 - 2.80 [facility] Comment on above: Performed By: #### 2 42145 #### [facility],[address] [place] [address] Lymphocytes/100 WBC (Bld) 29.8 % Normal 20.0 - 45.0 [facility] Comment on above: Performed By: #### 2 54885 #### [facility],[address] [place] [address] MANUAL DIFF N/A Normal [facility] Comment on above: Performed By: #### 2 76201 #### [facility],[address] [place], [place] [id number] MCH (RBC) [Entitic mass] 32 pg Normal 27 - 33 [facility] Comment on above: Performed By: #### 2 33448 #### [facility],[address] [place] [address] 50980 MCHC 34 X10 3 Normal 32 - 36 [facility] Comment on above: Performed By: #### 2 19362 #### [facility],[address] [place] [address] 38229 MCV (RBC) [Entitic vol] 96 fL Normal 80 - 99 [facility] Comment on above: Performed By: #### 2 57311 #### [facility],[address] [place], [place] [id number] Bradley # 0.52 x10EE3/UL Normal 0.20 - 1.00 [facility] Comment on above: Performed By: #### 2 09460 #### [facility],[address] [place] [address] 00188 MONOS % 7.8 % Normal 0.0 - 10.0 [facility] Comment on above: Performed By: #### 2 35371 #### [facility],[address] [place] [address] 47321 Morphology Deonte (Bld) [Interp] N/A Normal [facility] Comment on above: Performed By: #### 2 18339 #### [facility],[address] [place] [address] 25984 Neut # 4.04 x10EE3/UL Normal 1.50 - 7.10 [facility] Comment on above: Performed By: #### 2 45768 #### [facility],[address] [place], [place] [id number] Neutrophils/100 WBC (Bld) 60.3 % Normal 46.0 - 76.0 [facility] Comment on above: Performed By: #### 2 48605 #### [facility],[address] [place], [place] [id number] PLATELET 267 x10EE3/UL Normal 150 - 450 [facility] Comment on above: Performed By: #### 2 11370 #### [facility],[address] [place] [address] 89387 Platelet mean volume (Bld) [Entitic vol] 7.3 fL Normal 6.6 - 10.5 [facility] Comment on above: Result Comment: AUTO MATED DIFFERENTIAL Performed By: #### 2 94027 #### [facility],[address] [place] [address] 03863 RBC 4.18 x 10EE6/UL Normal 4.10 - 5.30 [facility] Comment on above: Performed By: #### 2 53644 #### [facility],[address] [place] [address] 86366 WBC 6.7 x 10EE3/UL Normal 4.5 - 10.8 [facility] Comment on above: Performed By: #### 2 20918 #### [facility],[address] [place] [address] 90780 CMP with eGFRon 01-06-2024 AGE 43 years Normal [facility] Comment on above: Performed By: #### 2 18358 #### [facility],[address] [place] [address] 44899 Albumin [Mass/Vol] 3.7 g/dL Normal 3.4 - 5.0 [facility] Comment on above: Performed By: #### 2 05496 #### [facility],[address] [place] [address] 02710 Albumin/Globulin [Mass ratio] 1.0 {ratio} Normal 0.9 - 1.6 [facility] Comment on above: Performed By: #### 2 18158 #### [facility],[address] [place] [address] 69684 ALK PHOS 91 U/L Normal 46 - 116 [facility] Comment on above: Performed By: #### 2 65652 #### [facility],[address] [place] [address] 57185 ALT [Catalytic activity/Vol] 34 U/L Normal 16 - 63 [facility] Comment on above: Performed By: #### 2 33340 #### [facility],[address] [place] [address] 69781 Anion gap [Moles/Vol] 9 mmol/L Low 10 - 20 [facility] Comment on above: Performed By: #### 2 11143 #### [facility],[address] [place] [address] 41507 AST [Catalytic activity/Vol] 20 U/L Normal 13 - 39 [facility] Comment on above: Performed By: #### 2 06360 #### [facility],[address] [place] [address] 87710 B/C RATIO 15 ratio Normal 0 - 30 [facility] Comment on above: Performed By: #### 2 31032 #### [facility],[address] [place] [address] 31437 Bilirubin [Mass/Vol] 0.4 mg/dL Normal 0.2 - 1.0 [facility] Comment on above: Performed By: #### 2 29315 #### [facility],[address] [place] [address] 38224 Calcium [Mass/Vol] 8.7 mg/dL Normal 8.5 - 10.1 [facility] Comment on above: Performed By: #### 2 52609 #### [facility],[address] [place] [address] 08812 Chloride [Moles/Vol] 102 mmol/L Normal 98 - 107 [facility] Comment on above: Performed By: #### 2 21695 #### [facility],[address] [place] [address] 95878 CMP with eGFR Normal [facility] Comment on above: Result Comment: COMP REHENSIVE METABOLIC PANEL Performed By: #### 2 61432 #### [facility],[address] [place] [address] 52345 CO2 [Moles/Vol] 29.9 mmol/L Normal 21.0 - 32.0 [facility] Comment on above: Performed By: #### 2 55911 #### [facility],[address] [place] [address] 95230 Creatinine [Mass/Vol] 0.89 mg/dL Normal 0.55 - 1.02 [facility] Comment on above: Performed By: #### 2 78330 #### [facility],[address] [place] [address] 40851 GFR/1.73 sq M.predicted among non-blacks MDRD (S/P/Bld) [Vol rate/Area] mL/min/{1.73_m2} Normal 60 - 999 [facility] Comment on above: Performed By: #### 2 50737 #### [facility],[address] [place] [address] 21603 Result Comment: ACCO RDING TO THE NATIONAL KIDNEY DISEASE EDUCATION PROGRAM(NKDE), A NORMAL eGFR IS A VALUE GREATER THAN OR EQUAL TO 60 ML/MIN/1.73 SQ METERS. CHRONIC KIDNEY DISEASE: <60mL/MIN/1.73 SQ METERS KIDNEY FAILURE: <15mL/MIN/1.73 SQ METERS THIS TEST SHOULD ONLY BE USED FOR PATIENTS 18 YEARS OF AGE AND OLDER. Globulin (S) [Mass/Vol] 3.8 g/dL Normal 1.5 - 3.8 [facility] Comment on above: Performed By: #### 2 99788 #### [facility],[address] [place] [address] 28602 Glucose [Mass/Vol] 94 mg/dL Normal 74 - 106 [facility] Comment on above: Performed By: #### 2 78939 #### [address] [address] Potassium [Moles/Vol] 4.0 mmol/L Normal 3.5 - 5.1 [facility] Comment on above: Performed By: #### 2 46694 #### [facility],[address] [place] [address] 34240 Protein [Mass/Vol] 7.5 g/dL Normal 6.4 - 8.2 [facility] Comment on above: Performed By: #### 2 49335 #### [facility],[address] [place] [address] 23304 Sodium [Moles/Vol] 137 mmol/L Normal 136 - 145 [facility] Comment on above: Performed By: #### 2 38452 #### [address] [address] Urea nitrogen [Mass/Vol] 13 mg/dL Normal 7 - 18 [facility] Comment on above: Performed By: #### 2 08822 #### [address] [address] CBC + DIFFon 12-01-2023 Baso # 0.03 x10EE3/UL Normal 0.00 - 0.10 [facility] Comment on above: Performed By: #### 2 44583 #### [facility],[address] [place] [address] Basophils/100 WBC (Bld) 0.4 % Normal 0.0 - 2.0 [facility] Comment on above: Performed By: #### 2 97296 #### [facility],[address] [place] [address] CBC + DIFF Normal [facility] Comment on above: Result Comment: CBC- COMPLETE BLOOD COUNT Performed By: #### 2 47347 #### [place] [address] EO # 0.07 x10EE3/UL Normal 0.00 - 0.50 [facility] Comment on above: Performed By: #### 2 55565 #### [facility],[address] [place] [address] Eosinophils/100 WBC (Bld) 0.8 % Normal 0.0 - 7.0 [facility] Comment on above: Performed By: #### 2 24789 #### [facility],[address] [place] [address] Erythrocyte distribution width (RBC) [Ratio] 13.4 % Normal 12.0 - 15.6 [facility] Comment on above: Performed By: #### 2 99291 #### [facility],[address] [place] [address] Hematocrit (Bld) [Volume fraction] 41.3 % Normal 34.0 - 46.0 [facility] Comment on above: Performed By: #### 2 98060 #### [facility],[address] [place] [address] Hemoglobin (Bld) [Mass/Vol] 13.9 g/dL Normal 12.0 - 16.0 [facility] Comment on above: Performed By: #### 2 84930 #### [facility],[address] [place] [address] Lymph # 1.96 x10EE3/UL Normal 0.80 - 2.80 [facility] Comment on above: Performed By: #### 2 89436 #### [facility],[address] [place] [address] Lymphocytes/100 WBC (Bld) 22.9 % Normal 20.0 - 45.0 [facility] Comment on above: Performed By: #### 2 20969 #### [facility],[address] [place] [address] MANUAL DIFF N/A Normal [facility] Comment on above: Performed By: #### 2 48628 #### [facility],[address] [place] [address] MCH (RBC) [Entitic mass] 32 pg Normal 27 - 33 [facility] Comment on above: Performed By: #### 2 55078 #### [facility],[address] [place] [address] MCHC 34 X10 3 Normal 32 - 36 [facility] Comment on above: Performed By: #### 2 16830 #### [facility],[address] [place], [place] [id number] MCV (RBC) [Entitic vol] 96 fL Normal 80 - 99 [facility] Comment on above: Performed By: #### 2 60478 #### [facility],[address] [place] [address] 30189 Bradley # 0.51 x10EE3/UL Normal 0.20 - 1.00 [facility] Comment on above: Performed By: #### 2 08145 #### [facility],[address] [place] [address] 50438 MONOS % 5.9 % Normal 0.0 - 10.0 [facility] Comment on above: Performed By: #### 2 59644 #### [facility],[address] [place], [place] [id number] Morphology Deonte (Bld) [Interp] N/A Normal [facility] Comment on above: Performed By: #### 2 05769 #### [facility],[address] [place], [place] [id number] Neut # 5.97 x10EE3/UL Normal 1.50 - 7.10 [facility] Comment on above: Performed By: #### 2 18536 #### [facility],[address] [place] [address] Neutrophils/100 WBC (Bld) 70.0 % Normal 46.0 - 76.0 [facility] Comment on above: Performed By: #### 2 18356 #### [facility],[address] [place] [address] PLATELET 265 x10EE3/UL Normal 150 - 450 [facility] Comment on above: Performed By: #### 2 34030 #### [facility],[address] [place] [address] Platelet mean volume (Bld) [Entitic vol] 7.8 fL Normal 6.6 - 10.5 [facility] Comment on above: Result Comment: AUTO MATED DIFFERENTIAL Performed By: #### 2 89215 #### [facility],[address] [place] [address] 50546 RBC 4.29 x 10EE6/UL Normal 4.10 - 5.30 [facility] Comment on above: Performed By: #### 2 41007 #### [facility],[address] [place], [place] [id number] WBC 8.5 x 10EE3/UL Normal 4.5 - 10.8 [facility] Comment on above: Performed By: #### 2 31426 #### [facility],[address] [place], [place] [id number] CMP with eGFRon 12-01-2023 AGE 43 years Normal [facility] Comment on above: Performed By: #### 2 57663 #### [facility],[address] [place] [address] 20616 Albumin [Mass/Vol] 3.6 g/dL Normal 3.4 - 5.0 [facility] Comment on above: Performed By: #### 2 78988 #### [facility],[address] [place] [address] 50568 Albumin/Globulin [Mass ratio] 1.0 {ratio} Normal 0.9 - 1.6 [facility] Comment on above: Performed By: #### 2 25522 #### [facility],[address] [place] [address] 30380 ALK PHOS 83 U/L Normal 46 - 116 [facility] Comment on above: Performed By: #### 2 19463 #### [facility],[address] [place] [address] 66993 ALT [Catalytic activity/Vol] 32 U/L Normal 16 - 63 [facility] Comment on above: Performed By: #### 2 77437 #### [facility],[address] [place] [address] 49284 Anion gap [Moles/Vol] 10 mmol/L Normal 10 - 20 [facility] Comment on above: Performed By: #### 2 37830 #### [facility],[address] [place] [address] 71585 AST [Catalytic activity/Vol] 21 U/L Normal 13 - 39 [facility] Comment on above: Performed By: #### 2 17815 #### [facility],[address] [place] [address] 14175 B/C RATIO 12 ratio Normal 0 - 30 [facility] Comment on above: Performed By: #### 2 23848 #### [facility],[address] [place] [address] 19484 Bilirubin [Mass/Vol] 0.4 mg/dL Normal 0.2 - 1.0 [facility] Comment on above: Performed By: #### 2 96893 #### [facility],[address] [place] [address] 83567 Calcium [Mass/Vol] 8.6 mg/dL Normal 8.5 - 10.1 [facility] Comment on above: Performed By: #### 2 30083 #### [facility],[address] [place] [address] 09355 Chloride [Moles/Vol] 102 mmol/L Normal 98 - 107 [facility] Comment on above: Performed By: #### 2 44841 #### [facility],[address] [place] [address] 78167 CMP with eGFR Normal [facility] Comment on above: Result Comment: COMP REHENSIVE METABOLIC PANEL Performed By: #### 2 88838 #### [facility],[address] [place] [address] 53340 CO2 [Moles/Vol] 29.0 mmol/L Normal 21.0 - 32.0 [facility] Comment on above: Performed By: #### 2 50235 #### [facility],[address] [place] [address] 80678 Creatinine [Mass/Vol] 0.90 mg/dL Normal 0.55 - 1.02 [facility] Comment on above: Performed By: #### 2 57960 #### [facility],[address] [place] [address] 62795 GFR/1.73 sq M.predicted among non-blacks MDRD (S/P/Bld) [Vol rate/Area] mL/min/{1.73_m2} Normal 60 - 999 [facility] Comment on above: Performed By: #### 2 75122 #### [facility],[address] [place] [address] 68768 Result Comment: ACCO RDING TO THE NATIONAL KIDNEY DISEASE EDUCATION PROGRAM(NKDE), A NORMAL eGFR IS A VALUE GREATER THAN OR EQUAL TO 60 ML/MIN/1.73 SQ METERS. CHRONIC KIDNEY DISEASE: <60mL/MIN/1.73 SQ METERS KIDNEY FAILURE: <15mL/MIN/1.73 SQ METERS THIS TEST SHOULD ONLY BE USED FOR PATIENTS 18 YEARS OF AGE AND OLDER. Globulin (S) [Mass/Vol] 3.7 g/dL Normal 1.5 - 3.8 [facility] Comment on above: Performed By: #### 2 51976 #### [facility],[address] [place] [address] 45695 Glucose [Mass/Vol] 94 mg/dL Normal 74 - 106 [facility] Comment on above: Performed By: #### 2 12770 #### [facility],[address] [place] [address] 77491 Potassium [Moles/Vol] 4.1 mmol/L Normal 3.5 - 5.1 [facility] Comment on above: Performed By: #### 2 64136 #### [facility],[address] [place] [address] 04940 Protein [Mass/Vol] 7.3 g/dL Normal 6.4 - 8.2 [facility] Comment on above: Performed By: #### 2 83441 #### [facility],[address] [place] [address] 34550 Sodium [Moles/Vol] 137 mmol/L Normal 136 - 145 [facility] Comment on above: Performed By: #### 2 27359 #### [facility],[address] [place] [address] 35855 Urea nitrogen [Mass/Vol] 11 mg/dL Normal 7 - 18 [facility] Comment on above: Performed By: #### 2 97382 #### [facility],[address] [place] [address] 93921 LIPID PROFILEon 12-01-2023 Cholesterol [Mass/Vol] 166 mg/dL Normal 0 - 240 [facility] Comment on above: Performed By: #### 2 80878 #### [facility],[address] [place] [address] 63365 Cholesterol in HDL [Mass/Vol] 75 mg/dL High 40 - 60 [facility] Comment on above: Performed By: #### 2 64362 #### [facility],[address] [place] [address] 64007 Cholesterol in LDL [Mass/Vol] 77 mg/dL Normal 0 - 129 [facility] Comment on above: Performed By: #### 2 55073 #### [facility],[address] [place] [address] 61733 Cholesterol.total/Lindy sterol in HDL [Mass ratio] 2.2 {ratio} Normal 0.0 - 5.0 [facility] Comment on above: Performed By: #### 2 18887 #### [facility],[address] [place] [address] 01445 Lipid 1996 panel Normal [facility] Comment on above: Result Comment: LIPI D PROFILE Performed By: #### 2 78230 #### [address] [address] Triglyceride [Mass/Vol] 72 mg/dL Normal 0 - 150 [facility] Comment on above: Performed By: #### 2 75036 #### [address] [address] T4-FREE (FREE THYROXINE)on 0 12-01-2023 Free T4 [Mass/Vol] 0.72 ng/dL Low 0.76 - 1.46 [facility] Comment on above: Result Comment: P otential of falsely elevated results when biotin concentrations are > 10 ng/mL. Performed By: #### 2 28114 #### [facility],[address] [place] [address] 39176 TSHon 12-01-2023 TSH Qn 0.98 m[IU]/L Normal 0.35 - 3.74 [facility] Comment on above: Performed By: #### 2 11813 #### [facility],[address] [place] [address] 00460 CBC + DIFFon 07-15-2023 Baso # 0.03 x10EE3/UL Normal 0.00 - 0.10 [facility] Comment on above: Performed By: #### 2 53588 #### [facility],[address] [place], [place] [id number] Basophils/100 WBC (Bld) 0.4 % Normal 0.0 - 2.0 [facility] Comment on above: Performed By: #### 2 24971 #### [facility],[address] [place] [address] CBC + DIFF Normal [facility] Comment on above: Result Comment: CBC- COMPLETE BLOOD COUNT Performed By: #### 2 16718 #### [facility],[address] [place] [address] EO # 0.06 x10EE3/UL Normal 0.00 - 0.50 [facility] Comment on above: Performed By: #### 2 39800 #### [facility],[address] [place] [address] Eosinophils/100 WBC (Bld) 0.7 % Normal 0.0 - 7.0 [facility] Comment on above: Performed By: #### 2 22577 #### [facility],[address] [place] [address] Erythrocyte distribution width (RBC) [Ratio] 13.2 % Normal 12.0 - 15.6 [facility] Comment on above: Performed By: #### 2 99504 #### [facility],[address] [place] [address] Hematocrit (Bld) [Volume fraction] 39.8 % Normal 34.0 - 46.0 [facility] Comment on above: Performed By: #### 2 64661 #### [facility],[address] [place] [address] Hemoglobin (Bld) [Mass/Vol] 13.3 g/dL Normal 12.0 - 16.0 [facility] Comment on above: Performed By: #### 2 46233 #### [facility],[address] [place] [address] Lymph # 2.60 x10EE3/UL Normal 0.80 - 2.80 [facility] Comment on above: Performed By: #### 2 00474 #### [facility],[address] [place] [address] Lymphocytes/100 WBC (Bld) 31.6 % Normal 20.0 - 45.0 [facility] Comment on above: Performed By: #### 2 20743 #### [facility],[address] [place] [address] MANUAL DIFF N/A Normal [facility] Comment on above: Performed By: #### 2 28577 #### [facility],[address] [place] [address] MCH (RBC) [Entitic mass] 31 pg Normal 27 - 33 [facility] Comment on above: Performed By: #### 2 12449 #### [facility],[address] [place] [address] MCHC 34 X10 3 Normal 32 - 36 [facility] Comment on above: Performed By: #### 2 57846 #### [facility],[address] [place], [place] [id number] MCV (RBC) [Entitic vol] 92 fL Normal 80 - 99 [facility] Comment on above: Performed By: #### 2 33112 #### [facility],[address] [place] [address] 21481 Bradley # 0.72 x10EE3/UL Normal 0.20 - 1.00 [facility] Comment on above: Performed By: #### 2 31082 #### [facility],[address] [place] [address] 07890 MONOS % 8.8 % Normal 0.0 - 10.0 [facility] Comment on above: Performed By: #### 2 85154 #### [facility],[address] [place] [address] 76307 Morphology Deonte (Bld) [Interp] N/A Normal [facility] Comment on above: Performed By: #### 2 33195 #### [facility],[address] [place] [address] 58995 Neut # 4.81 x10EE3/UL Normal 1.50 - 7.10 [facility] Comment on above: Performed By: #### 2 01239 #### [facility],[address] [place] [address] 62944 Neutrophils/100 WBC (Bld) 58.6 % Normal 46.0 - 76.0 [facility] Comment on above: Performed By: #### 2 14312 #### [facility],[address] [place], [place] [id number] PLATELET 287 x10EE3/UL Normal 150 - 450 [facility] Comment on above: Performed By: #### 2 92275 #### [facility],[address] [place] [address] 91142 Platelet mean volume (Bld) [Entitic vol] 8.0 fL Normal 6.6 - 10.5 [facility] Comment on above: Result Comment: AUTO MATED DIFFERENTIAL Performed By: #### 2 40283 #### [facility],[address] [place] [address] 58186 RBC 4.31 x 10EE6/UL Normal 4.10 - 5.30 [facility] Comment on above: Performed By: #### 2 [id number] #### [facility],[address] [place] [address] 68739 WBC 8.2 x 10EE3/UL Normal 4.5 - 10.8 [facility] Comment on above: Performed By: #### 2 82976 #### [facility],[address] [place] [address] 95111 CMP with eGFRon 07-15-2023 AGE 43 years Normal [facility] Comment on above: Performed By: #### 2 35278 #### [facility],[address] [place] [address] 31313 Albumin [Mass/Vol] 3.5 g/dL Normal 3.4 - 5.0 [facility] Comment on above: Performed By: #### 2 14777 #### [facility],[address] [place] [address] 53145 Albumin/Globulin [Mass ratio] 0.9 {ratio} Normal 0.9 - 1.6 [facility] Comment on above: Performed By: #### 2 87747 #### [facility],[address] [place] [address] 85329 ALK PHOS 76 U/L Normal 46 - 116 [facility] Comment on above: Performed By: #### 2 98931 #### [facility],[address] [place] [address] 55958 ALT [Catalytic activity/Vol] 39 U/L Normal 16 - 63 [facility] Comment on above: Performed By: #### 2 50792 #### [facility],[address] [place] [address] 68141 Anion gap [Moles/Vol] 16 mmol/L Normal 10 - 20 [facility] Comment on above: Performed By: #### 2 76121 #### [facility],[address] [place] [address] 36167 AST [Catalytic activity/Vol] 24 U/L Normal 13 - 39 [facility] Comment on above: Performed By: #### 2 40109 #### [facility],[address] [place] [address] 06645 B/C RATIO 17 ratio Normal 0 - 30 [facility] Comment on above: Performed By: #### 2 73636 #### [facility],[address] [place] [address] 18057 Bilirubin [Mass/Vol] 0.4 mg/dL Normal 0.2 - 1.0 [facility] Comment on above: Performed By: #### 2 73697 #### [facility],[address] [place] [address] 79897 Calcium [Mass/Vol] 8.7 mg/dL Normal 8.5 - 10.1 [facility] Comment on above: Performed By: #### 2 99040 #### [facility],[address] [place] [address] 78277 Chloride [Moles/Vol] 104 mmol/L Normal 98 - 107 [facility] Comment on above: Performed By: #### 2 14956 #### [facility],[address] [place] [address] 60799 CMP with eGFR Normal [facility] Comment on above: Result Comment: COMP REHENSIVE METABOLIC PANEL Performed By: #### 2 21736 #### [facility],[address] [place] [address] 53886 CO2 [Moles/Vol] 25.2 mmol/L Normal 21.0 - 32.0 [facility] Comment on above: Performed By: #### 2 70063 #### [facility],[address] [place] [address] 67280 Creatinine [Mass/Vol] 0.90 mg/dL Normal 0.55 - 1.02 [facility] Comment on above: Performed By: #### 2 97636 #### [facility],[address] [place] [address] 52593 GFR/1.73 sq M.predicted among non-blacks MDRD (S/P/Bld) [Vol rate/Area] mL/min/{1.73_m2} Normal 60 - 999 [facility] Comment on above: Performed By: #### 2 57318 #### [facility],[address] [place] [address] 70336 Result Comment: ACCO RDING TO THE NATIONAL KIDNEY DISEASE EDUCATION PROGRAM(NKDE), A NORMAL eGFR IS A VALUE GREATER THAN OR EQUAL TO 60 ML/MIN/1.73 SQ METERS. CHRONIC KIDNEY DISEASE: <60mL/MIN/1.73 SQ METERS KIDNEY FAILURE: <15mL/MIN/1.73 SQ METERS THIS TEST SHOULD ONLY BE USED FOR PATIENTS 18 YEARS OF AGE AND OLDER. Globulin (S) [Mass/Vol] 3.9 g/dL High 1.5 - 3.8 [facility] Comment on above: Performed By: #### 2 02866 #### [facility],[address] [place] [address] 36742 Glucose [Mass/Vol] 106 mg/dL Normal 74 - 106 [facility] Comment on above: Performed By: #### 2 96621 #### [facility],[address] [place] [address] 88621 Potassium [Moles/Vol] 3.8 mmol/L Normal 3.5 - 5.1 [facility] Comment on above: Performed By: #### 2 98702 #### [facility],[address] [place] [address] 14915 Protein [Mass/Vol] 7.4 g/dL Normal 6.4 - 8.2 [facility] Comment on above: Performed By: #### 2 13842 #### [facility],[address] [place] [address] 65952 Sodium [Moles/Vol] 141 mmol/L Normal 136 - 145 [facility] Comment on above: Performed By: #### 2 78226 #### [facility],[address] [place] [address] 92257 Urea nitrogen [Mass/Vol] 15 mg/dL Normal 7 - 18 [facility] Comment on above: Performed By: #### 2 03332 #### [address] [address] LABORATORYOrdered By: SYSTEM SYSTEM on 01-19-2023 Albumin BCP dye [Mass/Vol] 3.8 G/dL Invalid Interpretation Code 3.2 - 4.8 G/dL ADM SS Albumin/Globulin [Mass ratio] 1.3 {ratio} Invalid Interpretation Code 0.9 - 1.6 ratio ADM SS ALP [Catalytic activity/Vol] 61 U/L Invalid Interpretation Code 38 - 126 U/L ADM SS ALT No additional P-5'-P [Catalytic activity/Vol] 38 U/L Invalid Interpretation Code 10 - 49 U/L ADM SS AST [Catalytic activity/Vol] 20 U/L Invalid Interpretation Code 8 - 34 U/L ADM SS Basophils (Bld) [#/Vol] 0.0 103/mcL Invalid Interpretation Code 0.0 - 0.3 10^3/mcL Workflow SS Basophils/100 WBC (Bld) 0.6 % [...] Invalid Interpretation Code 8.7 - 10.4 mg/dL ADM SS Chloride [Moles/Vol] 108 mmol/L Invalid Interpretation Code 98 - 110 mEq/L ADM SS CO2 [Moles/Vol] 25 mmol/L Invalid Interpretation Code 22 - 32 mEq/L ADM SS Creatinine [Mass/Vol] 0.76 mg/dL Invalid Interpretation Code 0.50 - 1.20 mg/dL ADM SS Electrolyte Balance 7.0 mEq/L Invalid Interpretation Code 4.0 - 15.0 mEq/L ADM SS Eosinophils (Bld) [#/Vol] 0.1 103/mcL [...] Code 0.9 - 4.3 10^3/mcL Workflow SS Lymphocytes/100 WBC (Bld) 28.2 % Invalid Interpretation Code 20.0 - 40.0 % Workflow SS MCH (RBC) [Entitic mass] 32.3 pg Invalid Interpretation Code 27.0 - 33.0 pg Workflow SS MCHC 33.7 G/dL Invalid Interpretation [...] 05-25-2022 HCG ( test) Ql (U) Negative [facility] Comment on above: Very dilute urine sp ecimens, as indicated by a low specificgravity, may not contain title insurance sales representative levels of hCG. If is still suspected, a first morning urinespecimen should be collected 48 hours later and tested. Absolute lymphocyte countOrd ered By: Dr. Liriano on 05-19-2022 Lymphocytes Auto (Unsp spec) [#/Vol] 3.05 10*3/uL 0.83-4.51 [facility] Basophil percentageOrdered B y: Dr. Liriano on 05-19-2022 Basophils/100 WBC (Bld) 0.5 % 0-1 [facility] Bilirubin [Mass/Vol] 0.30 mg/dL 0.20-1.00 [facility] Comment on above: For patients on eltr ombopag therapy, use of Dimension [place] TBIL is not recommended. Chloride [Moles/Vol] 102 mmol/L 98-107 [facility] Eosinophils/100 WBC (Bld) 0.6 % 0-5 [facility] Glucose [Mass/Vol] 100 mg/dL 74-106 [facility] Comment on above: Fasting Glucose resu lt from 100 to 125 mg/dL suggests IMPAIRED HOMEOSTASIS per A.D.A. criteria. Neutrophils (Bld) [#/Vol] 6.1 10*3/uL 2.0-7.7 [facility] Neutrophils/100 WBC (Bld) 60.9 % 47-70 [facility] Potassium [Moles/Vol] 3.9 mmol/L 3.5-5.1 [facility] Protein [Mass/Vol] 7.4 g/dL 6.4-8.2 [facility] Sodium [Moles/Vol] 138 mmol/L 136-145 [facility] WBC (Bld) [#/Vol] 10.0 10*3/uL 4.4-11.0 [facility] Blood erythrocytes count (nu mber/volume)Ordered By: Dr. Liriano on 05-19-2022 RBC (Bld) [#/Vol] 4.03 10*6/uL 4.2-5.4 [facility] Blood hemoglobin measurement (mass/volume)Ordered By: Dr. Liriano on 05-19-2022 Hemoglobin (Bld) [Mass/Vol] 13.2 g/dL 12.0-15.0 [facility] Blood lymphocytes/100 leukoc ytesOrdered By: Dr. Liriano on 05-19-2022 Lymphocytes/100 WBC (Bld) 30.7 % 19-41 [facility] Blood monocytes/100 leukocyt esOrdered By: Dr. Liriano on 05-19-2022 Monocytes/100 WBC (Bld) 7.1 % 0-10 [facility] Blood platelet mean volumeOr dered By: Dr. Liriano on 05-19-2022 Platelet mean volume (Bld) [Entitic vol] 9.7 fL 6.2-12.0 [facility] Determination of erythrocyte mean corpuscular volume (MCV)Ordered By: Dr. Liriano on 05-19-2022 MCV (RBC) [Entitic vol] 99.3 fL 81-99 [facility] Hematocrit Auto (Bld) [Volum e fraction]Ordered By: Dr. Liriano on 05-19-2022 Hematocrit (Bld) [Volume fraction] 40.0 % 37-47 [facility] Laboratory - Chemistry and C hemistry - challengeOrdered By: Dr. Liriano on 05-19-2022 ALP [Catalytic activity/Vol] 63 U/L 45-117 [facility] ALT [Catalytic activity/Vol] 33 U/L 13-56 [facility] CO2 [Moles/Vol] 27.0 mmol/L 21.0-32.0 [facility] Globulin (S) [Mass/Vol] 3.4 g/dL 2.2-4.2 [facility] Urea nitrogen/Creatinine [Mass ratio] 17.3 mg/mg 10-20 [facility] Laboratory - Hematology and Cell countsOrdered By: Dr. Liriano on 05-19-2022 Erythrocyte distribution width (RBC) [Entitic vol] 47.7 fL 35.1-43.9 [facility] Erythrocyte distribution width (RBC) [Ratio] 13.2 % 11.6-14.6 [facility] Immature granulocytes/100 WBC (Bld) 0.200 % 0.0-0.9 [facility] Comment on above: IG% - Immature Granu locytes (promyelocytes, myelocytes and metamyelocytes) > 1% indicates that a LEFT SHIFT is Present. MCH (RBC) [Entitic mass] 32.8 pg 27.0-32.0 [facility] Nucleated RBC/100 WBC (Bld) [Ratio] 0 % 0-5 [facility] MCHC Auto (RBC) [Mass/Vol]Or dered By: Dr. Liriano on 05-19-2022 MCHC (RBC) [Mass/Vol] 33.0 g/dL 32-36 [facility] No Panel InformationOrdered By: Dr. Liriano on 05-19-2022 Estimated GFR (MDRD) Amer 86 mL/min >60 [facility] Comment on above: GFR Calc Estimated GFR (MDRD) Non-Af Amer 71 mL/min >60 [facility] Comment on above: Non- GFR Calc Platelets bldOrdered By: Dr. Liriano on 05-19-2022 Platelets (Bld) [#/Vol] 271 10*3/uL 150-450 [facility] Serum or plasma albumin chey urement (mass/volume)Ordered By: Dr. Liriano on 05-19-2022 Albumin [Mass/Vol] 4.0 g/dL 3.2-5.0 [facility] Serum or plasma albumin/glob ulin mass ratioOrdered By: Dr. Liriano on 05-19-2022 Albumin/Globulin [Mass ratio] 1.2 {ratio} 0.9-2.4 [facility] Serum or plasma calcium chey urement (mass/volume)Ordered By: Dr. Liriano on 05-19-2022 Calcium [Mass/Vol] 8.9 mg/dL 8.5-10.1 [facility] Serum or plasma creatinine m easurement (mass/volume)Ordered By: Dr. Liriano on 05-19-2022 Creatinine [Mass/Vol] 0.92 mg/dL 0.55-1.02 [facility] Comment on above: The validity of the calculated GFR & GFRAA in patients over 70 years has not been determined. Clinical correlation is essential. Serum or plasma urea nitroge n measurement (mass/volume)Ordered By: Dr. Liriano on 05-19-2022 Urea nitrogen [Mass/Vol] 16 mg/dL 7-18 [facility] Thin prep Papanicolaou smear with manual screeningOrdered By: Dr. Liriano on 05-19-2022 Thin prep Papanicolaou smear with manual screening 18 U/L 15-37 [facility] Thin prep Papanicolaou smear with manual screening 9 5-15 [facility] .Auto Diffon 02-19-2022 Basophil, Absolute 0.0 10 3/mcL Normal 0.0-0.3 [facility] ([place]) Comment on above: Performed By: #### C MP, GFR #### [address] [address] Eosinophil, Absolute 0.0 10 3/mcL Normal 0.0-0.7 [facility] ([place]) Comment on above: Performed By: #### C MP, GFR #### [address] [address] Lymphocyte, Absolute 2.2 10 3/mcL Normal 0.9-4.3 [facility] ([place]) Comment on above: Performed By: #### C MP, GFR #### [address] [address] Monocyte, Absolute 0.4 10 3/mcL Normal 0.1-1.4 [facility] ([place]) Comment on above: Performed By: #### C MP, GFR #### [address] [address] .Auto DiffOrdered By: SYSTEM SYSTEM on 02-19-2022 Basophils/100 WBC (Bld) 0.5 % Normal 0.0-2.5 A H Workflow SS Comment on above: Performed By: #### C MP, GFR #### [address] [address] Eosinophils/100 WBC (Bld) 0.7 % Normal 0.0-6.0 AH Workflow SS Comment on above: Performed By: #### C MP, GFR #### [address] [address] Lymphocytes/100 WBC (Bld) 33.6 % Normal 20.0-40.0 AH Workflow SS Comment on above: Performed By: #### C MP, GFR #### [address] [address] Monocytes/100 WBC (Bld) 5.7 % Normal 2.0-13.0 A H Workflow SS Comment on above: Performed By: #### C MP, GFR #### [address] [address] Neutrophils/100 WBC (Bld) 59.5 % Normal 50.0-75.0 AH Workflow SS Comment on above: Performed By: #### C MP, GFR #### [address] [address] .GFRon 02-19-2022 GFR Non- >60 Normal [facility] ([place]) Comment on above: Result Comment: GFR Population [...] Performed By: #### C MP, GFR #### [address] [address] GFR >60 Normal [facility] ([place]) Comment on above: Result Comment: GFR Population [...] Performed By: #### C MP, GFR #### [place] [address] .NEUABSon 02-19-2022 Neutrophil, Absolute 3.9 10 3/mcL Normal 2.3-8.1 [facility] ([place]) Comment on above: Performed By: #### C MP, GFR #### [place] [address] CBCOrdered By: SYSTEM SYSTEM on 02-19-2022 Erythrocyte distribution width (RBC) [Ratio] 13.7 % Normal 11.5-15.5 AH Workflow SS Comment on above: Performed By: #### C MP, GFR #### [place] [address] Hematocrit (Bld) [Volume fraction] 39.6 % Normal 34.0-46.0 AH Workflow SS Comment on above: Performed By: #### C MP, GFR #### [place] [address] MCH (RBC) [Entitic mass] 32.0 pg Normal 27.0-33.0 AH Workflow SS Comment on above: Performed By: #### C MP, GFR #### [place] [address] MCHC 33.6 G/dL Normal 32.0-36.0 AH Workflow SS Comment on above: Performed By: #### C MP, GFR #### [place] [address] MCV (RBC) [Entitic vol] 95.1 fL Normal 80.0-99.0 A H Workflow SS Comment on above: Performed By: #### C MP, GFR #### [place] [address] Platelet mean volume (Bld) [Entitic vol] 8.0 fL Normal 6.6-10.5 AH Workflow SS Comment on above: Performed By: #### C MP, GFR #### [place] [address] CBCon 02-19-2022 Hgb 13.3 G/dL Normal 12.0-16.0 [facility] ([place]) Comment on above: Performed By: #### C MP, GFR #### [address] [address] Platelet 257 10 3/mcL Normal 150-450 [facility] ([place]) Comment on above: Performed By: #### C MP, GFR #### [address] [address] RBC 4.16 10 6/mcL Normal 4.10-5.30 [facility] ([place]) Comment on above: Performed By: #### C MP, GFR #### [address] [address] WBC 6.6 10 3/mcL Normal 4.5-10.8 [facility] ([place]) Comment on above: Performed By: #### C MP, GFR #### [place] [id number] CMPon 02-19-2022 Albumin Level 4.1 G/dL Normal 3.2-4.8 [facility] ([place]) Comment on above: Performed By: #### C MP, GFR #### [place] [id number] ALT [Catalytic activity/Vol] 25 U/L Normal 10-49 [facility] ([place]) Comment on above: Performed By: #### C MP, GFR #### [place] [id number] Bili Total 0.30 mg/dL Normal 0.20-1.20 [facility] ([place]) Comment on above: Result Comment: Use of this assay is not recommended for patients undergoing treatment with eltrombopag due to the potential for falsely elevated results. Performed By: #### C MP, GFR #### [address] [address] BUN/Creatinine Ratio 15.9 ratio Normal 10.0-22.0 [facility] ([place]) Comment on above: Performed By: #### C MP, GFR #### [place] [id number] Total Protein 7.3 G/dL Normal 5.7-8.2 [facility] ([place]) Comment on above: Result Comment: No te - New Reference Range in effect 19 Performed By: #### C MP, GFR #### [address] [address] CMPOrdered By: SYSTEM SYSTEM on 02-19-2022 Albumin/Globulin [Mass ratio] 1.3 {ratio} Normal 0.9-1.6 AH ADM SS Comment on above: Performed By: #### C MP, GFR #### [address] [address] ALP [Catalytic activity/Vol] 81 U/L Normal 38-126 AH ADM SS Comment on above: Performed By: #### C MP, GFR #### [place] [id number] AST [Catalytic activity/Vol] 19 U/L Normal 8-34 AH ADM SS Comment on above: Performed By: #### C MP, GFR #### [place] [id number] Calcium [Mass/Vol] 9.5 mg/dL Normal 8.7-10.4 AH ADM SS Comment on above: Performed By: #### C MP, GFR #### [address] [address] Chloride [Moles/Vol] 106 mmol/L Normal 98-110 AH A DM SS Comment on above: Performed By: #### C MP, GFR #### [place] [id number] CO2 [Moles/Vol] 27 mmol/L Normal 22-32 AH ADM SS Comment on above: Performed By: #### C MP, GFR #### [place] [id number] Creatinine [Mass/Vol] 0.88 mg/dL Normal 0.50-1.20 AH ADM SS Comment on above: Performed By: #### C MP, GFR #### [place] [id number] Electrolyte Balance 6.0 mEq/L Normal 4.0-15.0 AH AD M SS Comment on above: Performed By: #### C MP, GFR #### [place] [id number] Globulin 3.2 G/dL Normal 1.5-3.8 AH ADM SS Comment on above: Performed By: #### C MP, GFR #### [address] [address] Glucose [Mass/Vol] 127 mg/dL High 70-110 ADM SS Comment on above: Performed By: #### C MP, GFR #### [address] [address] Potassium [Moles/Vol] 4.1 mmol/L Normal 3.5-5.0 ADM SS Comment on above: Performed By: #### C MP, GFR #### [address] [address] Sodium [Moles/Vol] 139 mmol/L Normal 136-145 ADM SS Comment on above: Performed By: #### C MP, GFR #### [address] [address] Urea nitrogen [Mass/Vol] 14.0 mg/dL Normal 8.0-22.0 ADM SS Comment on above: Performed By: #### C MP, GFR #### [address] [address] LABORATORYOrdered By: SYSTEM SYSTEM on 02-19-2022 Albumin BCP dye [Mass/Vol] 4.1 G/dL Invalid Interpretation Code 3.2 - 4.8 G/dL ADM SS ALT No additional P-5'-P [Catalytic activity/Vol] 25 U/L Invalid Interpretation Code 10 - 49 U/L ADM SS Basophils (Bld) [#/Vol] 0.0 103/mcL Invalid Interpretation Code 0.0 - 0.3 10^3/mcL Workflow SS Bilirubin [Mass/Vol] 0.30 mg/dL Invalid Interpretation Code 0.20 - 1.20 mg/dL ADM SS Eosinophils (Bld) [#/Vol] 0.0 103/mcL Invalid Interpretation Code 0.0 - 0.7 10^3/mcL Workflow SS GFR/1.73 sq M.predicted among blacks [...] U SE ONLY*on 01-31-2021 Interpretation TBNEG Normal [facility] Comment on above: Performed By: #### I NTPGP #### [facility] [employer] [facility] [address] [place] [phone] Mitogen minus Nil >10 Normal [facility] Comment on above: Performed By: #### I NTPGP #### [facility] [employer] [facility] [address] [place] [phone] TB NIL 0.03 IU/mL Normal [facility] Comment on above: Performed By: #### I NTPGP #### [facility] [employer] [facility] [address] [place] [phone] TB Result NEGAT Normal Negative [facility] Comment on above: Performed By: #### I NTPGP #### [facility] [employer] [facility] [address] [place] [phone] TB1 Ag minus Nil 0.00 IU/mL Normal <0.35 [facility] Comment on above: Performed By: #### I NTPGP #### [facility] [address] [place] [phone] TB2 Ag minus Nil 0.01 IU/mL Normal <0.35 [facility] Comment on above: Performed By: #### I NTPGP #### [facility] [address] [place] [phone] ZOE by IFAon 01-20-2021 ZOE Pattern ANANOT Normal [facility] Comment on above: Performed By: #### A HBSQ, HBSAG, AHCV1B, RF #### [facility] Routine [facility] [address] [place], [place] [address] #### ANAIFS, CCP #### [facility] [address] [place] [phone] ZOE Titer Normal Negative [facility] Comment on above: Result Comment: Nega tive Normal range : negatie at <1:80 serum dilution. Performed By: #### A HBSQ, HBSAG, AHCV1B, RF #### [facility] [address] [place] [phone] #### ANAIFS, CCP #### [facility] [address] [place] [phone] Nuclear Ab IF (S) [Titer] Negative Normal Negative [facility] Comment on above: Performed By: #### A HBSQ, HBSAG, AHCV1B, RF #### [facility] [address] [place] [phone] #### ANAIFS, CCP #### [facility] [employer] [facility] [address] [place] [address] CCP Antibody, IgGon 01-21-20 21 CCP Antibody, IgG <15 Normal <20 [facility] Comment on above: Performed By: #### A HBSQ, HBSAG, AHCV1B, RF #### [facility] [address] [place] [address] #### ANAIFS, CCP #### [facility] [address] [place] [address] Hep C Ab IA w/Confon 021 Hepatitis C Ab IA NEGAT Normal Negative [facility] Comment on above: Performed By: #### A HBSQ, HBSAG, AHCV1B, RF #### [facility] [address] [place] [address] #### ANAIFS, CCP #### [facility] [address] [place] [address] HepB SurfaceAb,Quanton 01-20 HepB SurfaceAb,Quant <8.00 Normal <8.00 [facility] Reference [facility] Comment on above: Performed By: #### A HBSQ, HBSAG, AHCV1B, RF #### [facility] [address] [place] [address] #### ANAIFS, CCP #### [facility] [address] [place] [address] Hepatitis B Surf. Agon 01-20 Hepatitis B Surf. Ag NEGAT Normal Negative [facility] Comment on above: Performed By: #### A HBSQ, HBSAG, AHCV1B, RF #### [facility] [address] [place] [address] #### ANAIFS, CCP #### [facility] [address] [place] [address] Rheumatoid Factoron 01-20-20 21 Rheumatoid Factor 14 IU/mL Normal <16 [facility] Comment on above: Performed By: #### A HBSQ, HBSAG, AHCV1B, RF #### [facility] [address] [place] [address] #### ANAIFS, CCP #### [facility] [address] [place] [address] Arash 10-31-2020 TSI <0.10 Normal <0.55 [facility] Comment on above: Performed By: #### H SCRP #### [facility] [address] [place] [address] #### TSIGIM #### [facility] [address] [place] [address] TSI Qualitative NEGAT Normal Negative [facility] Comment on above: Performed By: #### H SCRP #### [facility] [address] [place] [address] #### TSIGIM #### [facility] [address] [place] [address] Ultra-sensitive CRPon 2020 UltraSens C-ReacProt 2.9 mg/L Normal <3.1 [facility] Reference [facility] Comment on above: Performed By: #### H SCRP #### [facility] [address] [place] [address] #### TSIGIM #### [facility] [address] [place] [address] Vital Signs Date Time Vital Sign Value Performing Clinician Jeronimo jane 10-14-2024 21:50-0400 Body temperature 98.1 [degF] Nakia Moran [employer] SAFETY INSTRUCTOR-C Work Phone: [facility] 10-14-2024 21:50-0400 Diastolic blood pressure 61 mm[Hg] Nakia Moran WATER SAFETY INSTRUCTOR-C Work Phone: [facility] 10-14-2024 21:50-0400 Heart rate 75 /min Nakia Moran WATER SAFETY INSTRUCTOR-C Work Phone: [facility] 10-14-2024 21:50-0400 Respiratory rate 16 /min Nakia Moran WATER SAFETY INSTRUCTOR-C Work Phone: [facility] 10-14-2024 21:50-0400 SaO2% (BldA) [Mass fraction] 99 % Nakia Moran WATER SAFETY INSTRUCTOR-C Work Phone: [facility] 10-14-2024 21:50-0400 Systolic blood pressure 120 mm[Hg] Nakia Moran WATER SAFETY INSTRUCTOR-C Work Phone: [facility] 10-14-2024 17:43-0400 Body height 154.94 cm Nakia Moran WATER SAFETY INSTRUCTOR-C Work Phone: [facility] 10-14-2024 17:43-0400 Body mass index (BMI) [Ratio] 40.7 kg/m2 Nakia Moran WATER SAFETY INSTRUCTOR-C Work Phone: [facility] 10-14-2024 17:43-0400 Body weight 97.74 kg Nakia Moran WATER SAFETY INSTRUCTOR-C Work Phone: [facility] 05-25-2022 09:30-0500 Diastolic blood pressure 70 mm[Hg] [facility] 05-25-2022 09:30-0500 Heart rate 74 /min [facility] 05-25-2022 09:30-0500 Respiratory rate 16 /min [facility] 05-25-2022 09:30-0500 SaO2% (BldA) [Mass fraction] 95 % [facility] 05-25-2022 09:30-0500 Systolic blood pressure 96 mm[Hg] [facility] 05-25-2022 08:52-0500 Body temperature 98.5 [degF] [facility] 05-25-2022 08:30-0500 Inhaled oxygen flow rate 3 L/min [facility] 05-25-2022 06:40-0500 Body height 154.94 cm [facility] 05-25-2022 06:40-0500 Body mass index (BMI) [Ratio] 44.1 kg/m2 [facility] 05-25-2022 06:40-0500 Body weight 106 kg [facility] Encounters Encounter Date Encounter Type Care Provider Facility Start: 11-13-2024 End: 11-13-2024 ambulatory Coral Martinez MD Work Phone: [facility] [place] Start: 11-13-2024 End: 11-13-[address] Maria Liriano MD -[facility] [place] Work Phone: Start: 11-13-2024 End: 11-13-2024 ambulatory Maria Liriano Facility:[facility] Start: 10-20-2024 End: 10-20-2024 ambulatory Coral Martinez MD Work Phone: [facility] Work Phone: Start: 10-20-2024 End: 10-20-2024 Patient encounter procedure Sheila BAILEY -[facility] Work Phone: Start: 10-20-2024 End: 10-20-2024 ambulatory Coral Martinez Facility:[facility] Start: 10-17-2024 End: 10-17-2024 Patient encounter procedure Sheila BAILEY -[facility] Work Phone: Start: 10-17-2024 End: 10-17-2024 ambulatory Nakia DE LA TORRE Work Phone: [facility] Work Phone: Start: 10-17-2024 End: 10-17-2024 ambulatory Coral Martinez Facility:[facility] Start: 10-14-2024 End: 10-14-2024 Emergency department patient visit Nakia APARICIOC Work Phone: -Emergency Department Work Phone: Start: 09-26-2024 End: 09-26-[address] Maria Liriano MD -[facility] Work Phone: Start: 09-26-2024 End: 09-26-2024 ambulatory Maria Liriano Facility:[facility] Start: 09-13-2024 End: 09-13-2024 ambulatory Nakia Moran WATER SAFETY INSTRUCTOR-C Work Phone: [facility] Work Phone: Start: 09-13-2024 End: 09-13-[address] Maria Liriano MD -[facility], [place] Work Phone: Start: 09-13-2024 End: 09-13-2024 ambulatory Maria Liriano Facility:[facility] Start: 07-22-2024 End: 07-22-2024 ambulatory Nakia Moran WATER SAFETY INSTRUCTOR-C Work Phone: [facility] Work Phone: Start: 07-22-2024 End: 07-22-[address] Coral Martinez MD -Laboratory Work Phone: Start: 07-22-2024 End: 07-22-2024 ambulatory Coral Martinez Facility:[facility] Start: 06-21-2024 End: 06-21-[address] Maria Liriano MD -Labor[facility], [place] Work Phone: Start: 06-21-2024 End: 06-21-2024 ambulatory Nakia Moran NP Facility:[facility] Start: 06-12-2024 End: 06-13-2024 ambulatory NAKIA ECKERT [facility] Start: 03-21-2024 End: 03-21-2024 ambulatory Nakia Moran NP Facility:[facility] Start: 02-09-2024 End: 02-10-2024 ambulatory NAKIA ECKERT [facility] Start: 01-06-2024 End: 01-06-2024 ambulatory MARIA LIRIANO [facility] Start: 12-01-2023 End: 12-01-2023 ambulatory NAKIA ECKERT [facility] Start: 07-15-2023 End: 07-15-2023 ambulatory MARIA LIRIANO [facility] Start: 01-19-2023 End: 01-19-[address] MARIA LIRIANO MD [facility] Start: 05-25-2022 End: 05-25-2022 Admission to same day surgery center [facility] Start: 05-19-2022 End: 05-19-2022 ambulatory [facility] Work Phone: Start: 05-19-2022 End: 05-19-2022 Patient encounter procedure [facility] Start: 02-19-2022 End: 02-20-[address] MARIA LIRIANO MD. Facility:[facility] Start: 02-19-2022 End: 02-19-[address] MARIA LIRIANO MD [facility] Procedures Date Procedure Procedure Detail Performing Clinician Start: 10-14-2024 End: 10-14-2024 Iadna-dna/rna gi pthgn multiplex probe tq 6-11 Nakia Moran WATER SAFETY INSTRUCTOR-C Work Phone: Start: 10-14-2024 Computed tomography of abdomen and pelvis with intravenous contrast Nakia Moran WATER SAFETY INSTRUCTOR-C Work Phone: Start: 10-14-2024 Estimated creatinine clearance Nakia Moran WATER SAFETY INSTRUCTOR-C Work Phone: Start: 10-14-2024 Clostridium difficil e detection Nakia Moran WATER SAFETY INSTRUCTOR-C Work Phone: Start: 10-14-2024 Nucleic acid assay Jake Moran WATER SAFETY INSTRUCTOR-C Work Phone: Start: 09-26-2024 Ultrasonography of abdomen Nakia Moran WATER SAFETY INSTRUCTOR-C Work Phone: Start: 07-22-2024 Vitamin D, 25-hydrox y measurement Nakia Moran NP-C Work Phone: Comment on above: Vitamin D StatusDefi ciency: <20 ng/mL (50nmol/L)Insufficiency: 20-30 ng/mL (50-75 nmol/L)Sufficiency: 30-100 ng/mL (75-250 nmol/L)Toxicity: >100 ng/mL (>250 nmol/L) Start: 06-21-2024 Measurement of renal function Nakia Moran NP-C Work Phone: Comment on above: GFR Calc Start: 05-25-2022 Laparoscopic salpingectomy Plan of Treatment Date Care Activity Detail Author Start: 12-12-2024 ambulatory Ambulatory Facility:[facility] Start: 10-20-2024 Protein measurement [facility] Start: 10-14-2024 [facility] Start: 10-14-2024 Enteric precautions [facility] Start: 05-25-2022 Introduction of urin pb catheter [facility] Start: 05-25-2022 Patient discharge [facility] Start: 05-25-2022 Ambulation therapy management [facility] Start: 05-25-2022 Continuous pulse oximetry [facility] Start: 05-25-2022 Elevation of head of bed [facility] Start: 05-25-2022 Incentive spirometry [facility] Start: 05-25-2022 Measuring intake and output [facility] Start: 05-25-2022 Notification of physician [facility] Start: 05-25-2022 End: 05-25-2022 Oxygen therapy [facility] Start: 05-25-2022 Patient education [facility] Start: 05-25-2022 Taking patient vital signs [facility] Start: 05-25-2022 Wound care [facility] Start: 05-25-2022 [facility] CBC W Auto Different ial panel - Blood [facility] Patient Education ED Diarrhea, U nknown Cause [facility] Work Phone: Patient referral [facility] Work Phone: Protein measurement [facility] Payers Date Payer Category Payer Self-pay 2022 Unknown [id number] 2022 Unknown [id number] 1980 Unknown [id number] 2.16.8 [id number] 1980 Unknown [id number] 2.16.8 [id number] 1980 Unknown [id number] 2.16.8 40.1.081776.3.579.2.651 1980 Unknown [id number] 2.16.8 40.1.708308.3.579.2.651 1980 Unknown [id number] 2.16.8 40.1.555837.3.579.2.651 1980 Unknown [id number] 2.16.8 40.1.857370.3.579.2.651 Unknown [id number] Unknown [id number] 2.16.8 40.1.295060.3.579.2.462 Unknown [id number] 2.16.8 40.1.441875.3.579.2.462 Unknown [id number] 2.16.8 40.1.900127.3.579.2.462 Unknown [id number] 2.16.8 40.1.028366.3.579.2.462 Unknown [id number] 2.16.8 40.1.323731.3.579.2.462 Unknown [id number] 2.16.8 40.1.768929.3.579.2.462 Unknown [id number] 2.16.8 40.1.660902.3.579.2.462 Unknown [id number] 2.16.8 40.1.194728.3.579.2.462 Unknown [id number] 2.16.8 40.1.967187.3.579.2.462 Unknown [id number] 2.16.8 40.1.986095.3.579.2.462 Unknown [id number] 2.16.8 40.1.730759.3.579.2.462 Social History Date Type Detail Facility Tobacco smoking status [facility] Start: 05-19-2022 Tobacco smoking stat us [facility] Unknown if ever smoked [facility] Start: 1980 Sex Assigned At Female W [facility] Start: 05-19-2022 End: 10-14-2024 Tobacco smoking status HIIS Ex-smoker (finding) [facility] Start: 07-29-2024 Sex Female (finding) [facility] Goals Date Patient Goal Desired Activity /State Mental Status Date Assessment Result Facility 05-25-2022 Cognitive function Voice/Name [facility] Work Phone: Clinical Notes 10-14-2024 to 10-17-2024 Note Date & Type Note Facility 10-17-2024 Evaluation note Diagnosis Onset Date Resolution Bright red blood per rectum acute October 17, 2024 6:55am Diarrhea acute October 17 6:55am [facility] Work Phone: 1(781) 757-529106-07-2025 Discharge summary [facility] Medical Records Department [address] [place] [address] Emergency Department Summary 10/14/24 MR#: [id number] Acct: [id number] Name: MCKAYLA KAUFFMAN Rep #:[id number] : 1980 44 From: Sam Mcfarland PCP: Dr. Coral Martinez MD Status:REG ER Location: ED HPI History of Present Illness Chief Complaint: GI Bleed [facility] Medical History Wears contact lenses Wears glasses [...] albuterol sulfate 90 mcg/actuation 2 inh inhalation LA N PRN COPD 05/19/22 0 05/25/22 History [...] Social History (Updated 10/14/24 @ 17:51 by Ain Terry) household members: spouse housing: house Smoking [...] blood thinners. No significant approximately 4 mm. Nohistory of diverticulitis. Noshe took Bentyl that relief. [...] urinary complaints. Denies history of kidney stones. Deniesfalls or trauma. REVIEW OF SYSTEMS: Pertinent positives: Diarrhea, abdominal pain, hematochezia Pertinent negatives: Vomiting, fever, chest pain PHYSICAL EXAM: Nursing triage notes reviewed, Vital signs reviewed Constitutional: please see [facility] HENT: MMM Eyes: Pupils equal round and [...] nerves II through XII intact,5/5 strength in allpresent extremities. Intact sensation to light touch in [...] History obtained from others: none Consults: none [facility] Narrative: The patient was initially tachycardic otherwise hemodynamically stable, afebrileand nontoxic-appearing. Exam with no obvious peritoneal signs. I considered the following differential diagnosis: AAA, small bowel obstruction,abdominal perforation, perforated diverticula, diverticular abscess, appendicitis, pancreatitis, hepatobiliary pathology (acute cholecystitis), mesenteric ischemia, pathology (ie nephrolithiasis, pyelonephritis), inva sivediarrheal species (including E. coli and Shigella). I [...] is secondary to the patient having high probabilityof clinically significant/life threatening deterioration in the patient's condition which required my urgent intervention. Impression: 1. Abdominal pain 2. Diarrhea 3. Hematochezia Dispo: Discharge home This note was generated with Nazar dictation software. It may contain incorrect words, [...] 84.9 H Lymph % (Auto) 7.8 L Bradley % (Auto) 6.3 Eos % (Auto) 0.2 [...] Clarity Cloudy Urine pH 5.0 Ur Specific [place] 1.030 Urine Protein 30 H Urine Glucose [...] or inflammatory bowel disease. Colonoscopy is recommended forfurther evaluation. 2. Minimal colonic diverticulosis. No intra-abdominal abscess, ascites or free air. Reading Location: [facility] Discharge Plan Triage Chief Complaint: GI Bleed [...] MD [Primary Care Provider] - Print Language: Senegalese What to do if you have Problems For any increased pain, shortness of breath, bleeding, nausea or vomiting, chestpain, or any unexpected problems, contact your Primary Care Provider. Call [facility] ([phone]) or report tothe closest Emergency Room. Call 911 if necessary. 10/14/242151 Cosigner Signature (if applicable): CC: Dr. Coral Martinez MD ~ Signed [facility]06-07-2025 Radiology Diagnostic study note [facility] Imaging Services [address] [place] [address] Abdomen/Pelvis W IV Cont ONLY MR#: [id number] Acct: [id number] Name: MCKAYLA KAUFFMAN Rep #: [id number] : 1980 F 44 From: Serena Singh MD PCP: Dr. Coral Martinez MD Status: REG ER Study:Abdomen/Pelvis W IV Cont ONLY Date of E xam: 10/14/24 Exam# [id number] Ordering Dr: Mara Combs DO PROCEDURE: ABDOMEN/PELVIS [...] or inflammatory bowel disease. Colonoscopy is recommended forfurther evaluation. 2. Minimal colonic diverticulosis. No intra-abdominal abscess, ascites or free air. Reading Location: [id number] CC: Dr. Coral Martinez MD; Dr. Sam Combs DO ~ Iv Therapy Nurse: Signed [facility]06-07-2025 Discharge summary Author Sam Combs [facility] Note Date/Time October 14, 2024 9:52p m [facility] Medical Records Department [address] [place] [address] Emergency Department Summary 10/14/24 MR#: [id number] Acct: [id number] Name: MCKAYLA KAUFFMAN Rep #:[id number] : 1980 44 From: Sam Mcfarland PCP: Dr. Coral Martinez MD Status:REG ER Location: ED HPI History of Present Illness Chief Complaint: GI Bleed [facility] Medical History Wears contact lenses Wears glasses [...] albuterol sulfate 90 mcg/actuation 2 inh inhalation LA N PRN COPD 05/19/22 0 05/25/22 History [...] MEDICAL DECISION MAKING: Chief Complaint: please see [facility] External records reviewed: Reviewed prior imaging studies: Reviewed abdominal ultrasound from September 2024 which showed fat infiltration of liver, hemangioma Factors affecting care: As per [facility] Social determinants of health: Denies drugs or alcohol History obtained from others: none Consults: none [facility] Narrative: The patient was initially tachycardic otherwise [...] Discharge home This note was generated with Nazar dictation software. It may contain incorrect words, [...] 84.9 H Lymph % (Auto) 7.8 L Bradley % (Auto) 6.3 Eos % (Auto) 0.2 [...] Clarity Cloudy Urine pH 5.0 Ur Specific [place] 1.030 Urine Protein 30 H Urine Glucose [...] abscess, ascites or free air. Reading Location: [id number] Discharge Plan Triage Chief Complaint: GI Bleed [...] MD [Primary Care Provider] - Print Language: Senegalese What to do if you have Problems For any increased pain, shortness of breath, bleeding, nausea or vomiting, chestpain, or any unexpected problems, contact your Primary Care Provider. Call [facility] ([phone]) or report to the closest Emergency Room. Call 911 if necessary. 10/14/242151 <Electronically signed by Sam Combs DO> Cosigner Signature (if applicable): CC: Dr. Coral Martinez MD ~ Signed [facility] Work Phone: Evaluation + Plan note No data available for this section [facility] Evaluation noteNo assessment information available [facility] Work Phone: Evaluation note* Diagnosis Onset Date Resolution Status Admit Date Bright red blood per rectum acute October 17, 2024 6:55am [facility] Work Phone: Hospital Discharge instructions No data available for this section [facility] Hospital Discharge instructions Additional Instructions [facility] Work Phone: Hospital Discharge instructions Additional Instructions [...] care physician for further outpatient evaluation and management.[facility] Work Phone: Progress note No data available for this section [facility] Reason for referral (narrative)No reason for referral information [facility] Work Phone: Summary Purpose Family History No Family History Records FoundNo Family History Records Found No data available for this section No Family History Records FoundNo Family History Records Found Advance Directives No Advanced Directives Records Found Advance Directive Response Recorded Date/ Time Living Will No May 19 9:08am Power of Cow Buyer No May 19, 2022 9:08am Advance Directive Response Recorded Date/ Time Do you have a Healthcare Power of Cow Buyer? No October 14, 2024 5:51pm Chief Complaint [...] PAIN- COPY PCP September 13, 2024 7:05am [facility] September 26, 2024 7: 17am gi bleed October 14, 2024 5:42p m Chief Complaint Admit Date S/O- PAIN- COPY PCP June 21, 2024 7:39am E-ORDER July 22, 2024 8:0 7am PAIN- COPY PCP September 13, 2024 7:05am [facility] September 26, 2024 7: 17am gi bleed October 14, 2024 5:42p m ER FU BLEEDING October 17, 2024 6:55 am Reason for Visit Admit Date Bright red blood per rectum October 17, 2 025 6:55am Chief Complaint Admit Date E-ORDER July 22, 2024 8:0 7am PAIN- COPY PCP September 13, 2024 7:05am [facility] September 26, 2024 7: 17am gi bleed October 14, 2024 5:42p m ER FU BLEEDING October 17, 2024 6:55 am INT LABS October 17, 2024 7:47 am EORDER- STOOL October 20, 2024 7:18 am Reason for Visit Admit Date Bright red blood per rectum October 17, 025 6:55am Diarrhea October 17, 2024 6:55 am Chief Complaint Admit Date E-ORDER July 22, 2024 8:0 7am PAIN- COPY PCP September 13, 2024 7:05am [facility] September 26, 2024 7: 17am gi bleed October 14, 2024 5:42p m ER FU BLEEDING October 17, 2024 6:55 am INT LABS October 17, 2024 7:47 am EORDER- STOOL October 20, 2024 7:18 am S/O- PAIN- COPY PCP November 13, 2024 7:17a m Additional Source Comments INFORMATION SOURCE (unrecogn ized section and content) DATE CREATED AUTHOR 01/31/2021 [facility] DATE CREATED AUTHOR AUTHOR'S ORGANIZ ATION 06/25/2022 [facility] DATE CREATED AUTHOR AUTHOR'S ORGANIZ ATION 06/13/2024 [facility] DATE CREATED AUTHOR AUTHOR'S ORGANIZ ATION 11/29/2024 [facility] Care Team (unrecognized sect ion and content) Care Team Personnel Name: BRET LATIF DO Position: Physician Med Service: Active Provider Member Role: Primary Care Physician Address: Address: [address] [place] [address]- Care Team Related Persons Name: LIZ MAHONEY Address: Home [address] [place] [address] Care Teams (unrecognized sec tion and content) Team Status: Active Member Role Status Dates Nakia Moran WATER SAFETY INSTRUCTOR, WATER SAFETY INSTRUCTOR-C Primary Care Provider Active Team Status: Inactive Member Role Status Dates Dr. Chemo Rodriguez MD Attending Provider, Referring Pr ovider Active Nakia Moran WATER SAFETY INSTRUCTOR, WATER SAFETY INSTRUCTOR-C Primary Care Provider Active Team Status: Inactive Member Role Status Dates Nakia Moran WATER SAFETY INSTRUCTOR, WATER SAFETY INSTRUCTOR-C Primary Care Provider Active Dr. Maria Liriano MD Attending Provider, Referring Provider Active Team Status: Active Member Role Status Dates Coral Martinez MD Primary Care Provider Active Team Status: Inactive Member Role Status Dates Nakia Moran WATER SAFETY INSTRUCTOR, WATER SAFETY INSTRUCTOR-C Primary Care Provider Active Start: June 21, [...] October 17, 2024 End: October 17, 2024 Team Status: Inactive Member Role Status Melissa Martinez MD Primary Care Provider Active St art: October 14, 2024 End: October 14, 2024 Dr. Sam Combs DO Attending Provider Active Start: October 14, 2024 End: October 14, 2024 Dr. Sam Combs DO Emergency Provider Active Start: October 14, 2024 End: October 14, 2024 Team Status: Inactive Member Role Status Melissa Martinez MD Primary Care Provider Active St art: October 17, 2024 End: October 17, 2024 SHENG Zarate Attending Provider Active Start: October 17, 2024 End: October 17, 2024 SHENG Zarate Referring Provider Active Start: October 17, 2024 End: October 17, 2024 Team Status: Active Member Role Status Melissa Martinez MD Primary Care Provider Active St art: October 20, 2024 SHENG Zarate Attending Provider Active Start: October 20, 2024 SHENG Zarate Referring Provider Active Start: October 20, 2024 Team Status: Inactive Member Role Status Melissa Martinez MD Primary Care Provider Active St art: October 20, 2024 End: October 20, 2024 SHENG Zarate Attending Provider Active Start: October 20, 2024 End: October 20, 2024 SHENG Zarate Referring Provider Active Start: October 20, 2024 End: October 20, 2024 Team Status: Active Member Role/Relationship Status Melissa Martinez MD Primary Care Provider Active Team Status: Inactive Member Role/Relationship Status Melissa Martinez MD Primary Care Provider Active St art: July 22, 2024 End: July 22, 2024 Coral Martinez MD Attending Provider Active Start : July 22, 2024 End: July 22, 2024 Coral Martinez MD Referring Provider Active Start : July 22, 2024 End: July 22, 2024 Team Status: Inactive Member Role/Relationship Status Melissa Martinez MD Primary Care Provider Active St art: September 13, 2024 End: September 13, 2024 Dr. Maria Liriano MD Attending Provider Active Start: September 13, 2024 End: September 13, 2024 Dr. Maria Liriano MD Referring Provider Active Start: September 13, 2024 End: September 13, 2024 Team Status: Inactive Member Role/Relationship Status Melissa Martinez MD Primary Care Provider Active St art: September 26, 2024 End: September 26, 2024 Dr. Maria Liriano MD Attending Provider Active Start: September 26, 2024 End: September 26, 2024 Dr. Maria Liriano MD Referring Provider Active Start: September 26, 2024 End: September 26, 2024 Team Status: Inactive Member Role/Relationship Status Melissa Martinez MD Primary Care Provider Active St art: October 14, 2024 End: October 14, 2024 Dr. Sam Combs DO Attending Provider Active Start: October 14, 2024 End: October 14, 2024 Dr. Sam Combs DO Emergency Provider Active Start: October 14, 2024 End: October 14, 2024 Team Status: Inactive Member Role/Relationship Status Melissa Martinez MD Primary Care Provider Active St art: October 17, 2024 End: October 17, 2024 Coral Martinez MD Referring Provider Active Start : October 17, 2024 End: October 17, 2024 SHENG Zarate Attending Provider Active Start: October 17, 2024 End: October 17, 2024 Team Status: Inactive Member Role/Relationship Status Melissa Martinez MD Primary Care Provider Active St art: October 17, 2024 End: October 17, 2024 SHENG Zarate Attending Provider Active Start: October 17, 2024 End: October 17, 2024 SHENG Zarate Referring Provider Active Start: October 17, 2024 End: October 17, 2024 Team Status: Inactive Member Role/Relationship Status Melissa Martinez MD Primary Care Provider Active St art: October 20, 2024 End: October 20, 2024 SHENG Zarate Attending Provider Active Start: October 20, 2024 End: October 20, 2024 SHENG Zarate Referring Provider Active Start: October 20, 2024 End: October 20, 2024 Team Status: Inactive Member Role/Relationship Status Melissa Martinez MD Primary Care Provider Active St art: November 13, 2024 End: November 13, 2024 Dr. Maria Liriano MD Attending Provider Active Start: November 13, 2024 End: November 13, 2024 Dr. Maria Liriano MD Referring Provider Active Start: November 13, 2024 End: November 13, 2024 Goals (unrecognized section and content) [...] BE BASED ON THE PRIMARY CLINICAL RECORDS. [facility] [employer] [facility]. provides no warranty or guarantee of the accuracy or completeness of information in this document.
[2024-12-12] MEDS: Lactated Ringers 1,000 ML 15 ML IV (06:11)
--- NOTE | 2024-12-12 06:40 | PCM.HP.STD ---
[facility] - General General Date of Admission: 12/12/24 Date of Service: 12/12/24 Chief Complaint: Lower GI bleed [facility] Narrative NGOC KAUFFMAN, is a 44 F who presents with the Chief Complaint: bleeding with bowel movement [facility] ED 10.14.24 with abdominal pain and bloody diarrhea. Hx of diverticulitis. CBC with leukocytosis but pt on steroids. CT showing enteritis CT abd/pelvis 10.14.24 1. Long segment wall thickening, hyperenhancement and fat stranding of the proximal descending colon, which is indeterminate in etiology, and may represent enteritis or inflammatory bowel disease. Colonoscopy is recommended for further evaluation. 2. Minimal colonic diverticulosis. No intra-abdominal abscess, ascites or free air. Stool; negative for c dif and enteric pathogens OV 10.17.24 Pt continues with bleeding and loose stools. Blood is bright red and fills the bowel. This is the first time she has ever had blood in her stool like this. She has been taking zofran as needed. She endorses hx of frequent episodes of diverticulitis treated with with cipro and flagyl. She does not take daily NSAIDs. Last colonoscopy was in 2021 with diverticula. [facility] Medical History Fatty liver Anxiety Depression Thyroid disease Murmur History of echocardiogram Wears contact lenses Wears glasses History of steroid therapy Rheumatoid arthritis Arthritis Anemia High cholesterol Migraine headache History of diverticulitis History of hiatal hernia Gastric reflux Former smoker Asthma COPD (chronic obstructive pulmonary disease) Hoarseness Chronic cough Fibromyalgia Leg cramps History of pain when walking History of edema Home Medications ?Medication ?Instructions ?Recorded ?Last Taken ?Type albuterol sulfate 90 mcg/actuation 2 inh inhalation PRN PRN COPD 05/19/22 05/25/22 History aerosol inhaler atorvastatin 10 mg tablet 10 mg PO QHS 05/19/22 Unknown History duloxetine 60 mg capsule,delayed 60 mg PO DAILY 05/19/22 12/12/24 History release (Cymbalta) ferrous sulfate 28 mg iron tablet 28 mg PO DAILY 05/19/22 12/08/24 History fluticasone furoate 200 1 inh inhalation DAILY 05/19/22 05/25/22 History mcg-vilanterol 25 mcg/dose inhalation powder folic acid 1 mg tablet 2 mg PO DAILY 05/19/22 Unknown History hydroxychloroquine 200 mg tablet 200 mg PO BID 05/19/22 Unknown History leucovorin calcium 15 mg tablet 15 mg PO FR 05/19/22 Unknown History Held on 12/11/24. Instructions: per pt methotrexate sodium 2.5 mg tablet 20 mg PO TH 05/19/22 Unknown History multivitamin 1 tab PO DAILY 05/19/22 Unknown History pantoprazole 40 mg tablet,delayed 40 mg PO DAILY 05/19/22 12/12/24 History release prednisone 10 mg tablet 10 mg PO PRN PRN RHEUMATOID 05/19/22 Unknown History ARTHRITIS ondansetron 4 mg disintegrating 4 mg PO Q8H PRN PRN Nausea 3 days 10/14/24 Unknown Rx tablet #10 tabs tirzepatide (weight loss) 5 mg/0.5 10 mg subcut QWEEK 10/17/24 12/03/24 History mL subcutaneous pen injector (Zepbound) levothyroxine 137 mcg tablet 137 mcg PO DAILY 12/11/24 12/12/24 History (Synthroid) linaclotide 290 mcg capsule 290 mcg PO DAILY 12/11/24 Unknown History (Linzess) prazosin 1 mg capsule 1 mg PO QHS 12/11/24 Unknown History Allergy/AdvReac Type Severity Reaction Status Date / Time amoxicillin AdvReac Other Verified 12/12/24 05:55 Surgical History H/O bilateral salpingectomy H/O sinus surgery Myringotomy tube status Hx of lymph node biopsy Hx of tonsillectomy Social History household members: spouse housing: house Smoking Status: Former smoker ROS Constitutional Constitutional: Denies fatigue, fever(s), poor appetite, weight gain or weight loss Gastrointestinal Gastrointestinal: Denies belching, bloating, change in bowel habits, change in stool character, chewing difficulty, coffee ground emesis, constipation, cramping, diarrhea, dyspepsia, dysphagia, early satiety, excessive flatus, fecal incontinence, heartburn, hematemesis, hematochezia, hemorrhoids, loose stools, melena, nausea, odynophagia, rectal bleeding, tenesmus, vomiting or weight changes Vital Signs Vital Signs Vital Signs: 12/12/24 05:59 12/12/24 05:59 Temperature 98 F Temperature Source Temporal Pulse Rate 75 Respiratory Rate 16 Respiratory Pattern Normal Blood Pressure 104/73 Blood Pressure Mean 83 Blood Pressure Source Monitor Blood Pressure Position Semi-Fowlers Blood Pressure Location Left Arm Pulse Ox 98 Oxygen Delivery Method Room Air Weight Weight: 205 lb Body Mass Index (BMI) 38.7 Physical Exam Const alert, oriented x3, no apparent distress and healthy appearing General Appearance: cooperative GI normal to inspection, nondistended, normoactive bowel sounds, soft to palpation, non-tender and non-distended Percussion: normal to percussion Rectal Exam: deferred Assessment & Plan Assessment/Plan (1) Diarrhea: (2) Bright red blood per rectum: PLAN: Assessment and Plan Assessment and Plan (1) Bright red blood per rectum: Status: Acute (2) Diarrhea: Status: Acute Plan: Ngoc is a 44 yo female pt here today for ED f/u after bright red blood per rectum and diarrhea. Work up in the ED showing thickening in the colon and possible enteritis. CBC showing leukocytosis however she is on steroids. Hgb was normal. Stool testing was negative for c. diff. Pt does have a hx of frequent episodes of diverticulitis but does not endorses having these symptoms in the past. She denies frequent NSAID use or hx of IBD. She will be scheduled for colonoscopy. I will repeat CBC to monitor hgb for any acute drops. I will also order calprotectin to evaluate her colon for inflammation. -Colonoscopy -CBC -Calprotectin -f/u after procedure Orders: Orders CBC W/Diff, Automated Today K62.5 - Hemorrhage of anus and rectum Calprotectin, Stool Today K62.5 - Hemorrhage of anus and rectum CRP Today K62.5 - Hemorrhage of anus and rectum Erythrocyte Sed Rate Today K62.5 - Hemorrhage of anus and rectum
--- NOTE | 2024-12-12 06:44 | PRE.ANES_ITS ---
ASA Classification* ASA Classification ASA Classification: 2 Assessment & Plan Anesthesia* Anesthesia Assessment Anesthesia Assessment: Discussed sedation and/or anesthesia options, risks, benefits, and alternatives with patient/parents/legal guardian/POA. Questions invited. The patient/parents/legal guardian/POA seems to understand and agrees to proceed with anesthesia plan. Reviewed the physical assessment, medical history, allergy history and patient home medications list prior to surgery/procedure/anesthetic and documented any changes. Performed airway and anesthesia risk assessments. Anesthesia Type Anesthesia Type: MAC Anesthesia Focused Assessment* Temperature: 98 F Pulse Rate: 75 Blood Pressure: 104/73 Respiratory Rate: 16 Pulse Ox: 98 Airway Assessment Mouth opens: >3 cm Mallampati Score: II Labs Anesthesia Preop lab: CBC WBC 7.0 K/mm3 (4.4-11.0) 11/13/24 07:21 11/13/24 RBC 3.93 M/mm3 (4.2-5.4) L 11/13/24 07:21 11/13/24 Hgb 12.6 g/dL (12.0-15.0) 11/13/24 07:21 11/13/24 Hct 37.8 % (37-47) 11/13/24 07:21 11/13/24 Plt Count 233 K/mm3 (150-450) 11/13/24 07:21 11/13/24 CHEMISTRY Potassium 4.2 mmol/L (3.3-5.1) 11/13/24 07:21 11/13/24 Sodium 137 mmol/L (133-145) 11/13/24 07:21 11/13/24 BUN 9 mg/dL (4-19) 11/13/24 07:21 11/13/24 Creatinine 0.84 mg/dL (0.70-1.20) 11/13/24 07:21 11/13/24 Glucose 96 mg/dL (70-99) 11/13/24 07:21 11/13/24 TSH 0.289 uIU/mL (0.300-4.200) L 07/22/24 08:14 COAG Urine Test Negative Negative 10/14/24 18:18 10/14/24 Pre-Assessment Diagnosis/Proposed Procedure Planned Operative Procedure(s): COLONOSCOPY Anesthesia History Anesthesia History - healthcare educator: Anesthesia History - healthcare educator Hx Hospitalization No 12/11/24 08:24 Any Problems With Anesthesia No 12/11/24 08:24 Cholinesterase deficiency No 12/11/24 08:24 You/Your Family Experience No 12/11/24 08:24 fever (hyperthermia) with Relationship Recent Exposure to Contagious No 12/12/24 05:59 Disease Does patient have nerve No 12/11/24 08:24 stimulator Patient instructed to have device shut off --Does patient have Pacemaker No 12/12/24 05:59 or ICD? When Was Last Pacemaker Check QUESTION #4 FULL TEXT: You/Your Family Experience fever (hyperthermia) with Anesthesia Last Oral Intake Last Oral intake: Last Oral Intake NPO since 03:00 12/12/24 05:59 Meds taken in AM with sips of water? 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 - healthcare educator: PONV - healthcare educator Female Yes 12/11/24 08:24 HX of Motion Sickness Yes 12/11/24 08:24 HX of N/V After Surgery Yes 12/11/24 08:24 Non-Smoker Yes 12/11/24 08:24 Duration of Surgery greater No 12/11/24 08:24 than 60 minutes Number of Risk Factors 4 12/11/24 08:24 PONV Score Severe Risk 12/11/24 08:24 Height & Weight Height & Weight: Anesthesia: Height & Weight Height 5 ft 1 in 12/12/24 05:59 Weight: 92.986 kg 12/12/24 05:59 Body Mass Index (BMI) 38.7 12/12/24 05:59 Respiratory Assessment Respiratory Assessment - healthcare educator: Respiratory Tract Infection Hx - healthcare educator Hx Respiratory Tract Infection No 12/11/24 08:24 STOP Sleep Apnea STOP Sleep Apnea - healthcare educator: STOP Sleep Apnea - healthcare educator Hx Hypertension No 12/11/24 08:24 Hx Sleep Apnea Yes 12/11/24 08:24 CPAP Yes 12/11/24 08:24 BIPAP No 12/11/24 08:24 Do you snore loudly (louder than talking or can be heard Do you often feel tired/ fatigued/ sleepy during daytime? Has anyone observed you stop breathing during sleep? STOP Results Positive 12/11/24 08:24 QUESTION #5 FULL TEXT : Do you snore loudly (louder than talking or can be heard through closed doors)? 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 Specify any problems Hx of Preganancy in last 3 No 12/11/24 08:24 Months Nurse Filling Out Transfusion [email or web address] 12/11/24 08:24 & Questions: Date: 12/11/24 12/11/24 08:24 Time: 08:12/11/24 08:24 Patient unable to answer at this time (ie. confused, unrespo /Reproduction History /Reproductive History - healthcare educator: /Reproductive Hx- healthcare educator Hx Now No 12/11/24 08:24 Gestational Age (in weeks): EDC: Hx Hx Para Hx Section SAB No 12/11/24 08:24 Active Medications Active Medications: Current Medications Generic Name Dose Route Start Last Admin Trade Name Freq PRN Reason Stop Dose Admin Lactated Ringer's 1,000 mls @ 15 mls/hr 12/12/24 05:45 12/12/24 06:11 IV 15 mls/hr .Q48H DALJIT Administration PFSH Medical History Fatty liver Anxiety Depression Thyroid disease Murmur History of echocardiogram Wears contact lenses Wears glasses History of steroid therapy Rheumatoid arthritis Arthritis Anemia High cholesterol Migraine headache History of diverticulitis History of hiatal hernia Gastric reflux Former smoker Asthma COPD (chronic obstructive pulmonary disease) Hoarseness Chronic cough Fibromyalgia Leg cramps History of pain when walking History of edema Home Medications ?Medication ?Instructions ?Recorded ?Last Taken ?Type albuterol sulfate 90 mcg/actuation 2 inh inhalation GA N PRN COPD 05/19/22 05/25/22 History aerosol inhaler atorvastatin 10 mg tablet 10 mg PO QHS 05/19/22 Unknow n History duloxetine 60 mg capsule,delayed 60 mg PO DAILY 12/12/24 History release (Cymbalta) ferrous sulfate 28 mg iron tablet 28 mg PO DAILY 05/1912/08/24 History fluticasone furoate 200 1 inh inhalation DAILY 05/1905/25/22 History mcg-vilanterol 25 mcg/dose inhalation powder folic acid 1 mg tablet 2 mg PO DAILY 05/19/22 Unkno wn History hydroxychloroquine 200 mg tablet 200 mg PO BID 3 Unknown History leucovorin calcium 15 mg tablet 15 mg PO FR 05/19/22 U nknown History Held on 12/11/24. Instructions: per pt methotrexate sodium 2.5 mg tablet 20 mg PO TH 05/19/22 Unknown History multivitamin 1 tab PO DAILY 05/19/22 Unkn own History pantoprazole 40 mg tablet,delayed 40 mg PO DAILY 05/1912/12/24 History release prednisone 10 mg tablet 10 mg PO PRN PRN RHEUMATOID 05/19/22 Unknown History ARTHRITIS ondansetron 4 mg disintegrating 4 mg PO Q8H PRN PRN Na usea 3 days 10/14/24 Unknown Rx tablet #10 tabs tirzepatide (weight loss) 5 mg/0.5 10 mg subcut QWEEK 10/17/24 12/03/24 History mL subcutaneous pen injector (Zepbound) levothyroxine 137 mcg tablet 137 mcg PO DAILY 12/11/24 12/12/24 History (Synthroid) linaclotide 290 mcg capsule 290 mcg PO DAILY 12/11/24 Unknown History (Linzess) prazosin 1 mg capsule 1 mg PO QHS 12/11/24 Unknown History Allergy/AdvReac Type Severity Reaction Status Date / Time amoxicillin AdvReac Other Verified 12/12/24 05:55 Surgical History H/O bilateral salpingectomy H/O sinus surgery Myringotomy tube status Hx of lymph node biopsy Hx of tonsillectomy Social History household members: spouse housing: house Smoking Status: Former smoker Review of Systems (Anesthesia) ROS Narrative System reviewed and no additional complaints, except as documented.
--- NOTE | 2024-12-12 07:04 | OP.PROVAT_ITS ---
12/12/2024 Coral Martinez Md Re : Colonoscopy procedure for Ngoc Dasilva Dear Juan This procedure was performed on Thursday, December 12, 2024. My impressions and recommendations are as follows: Impressions : - Stool in the entire examined colon. - No specimens collected. Recommendations : - Discharge patient to home. - Resume previous diet. - Continue present medications. - Repeat colonoscopy because the bowel preparation was poor. My findings are described in the full procedure note, which is enclosed. If I can be of further assistance, please feel free to contact me at . Sincerely, Misael Moore, 12/12/2024 7:03:41 AM This report has been signed electronically.
--- NOTE | 2024-12-12 07:04 | OP.COLON_ITS ---
Patient Name: Ngoc Dasilva Procedure Date: 12/12/2024 6:26 AM Date of : 1980 Age: 44 Procedure: Colonoscopy Indications: Chronic diarrhea, Hematochezia Providers: Misael Moore DO Referring MD: Coral Martinez Md Medicines: Monitored Anesthesia Care Patient Profile: This is a 44 year old female. Refer to note in patient chart for documentation of history and physical. Last Colonoscopy: none. The patient's first colonoscopy is today. Complications: No immediate complications. Procedure: Pre-Anesthesia Assessment: - Prior to the procedure, a History and Physical was performed, and patient medications and allergies were reviewed. The patient is competent. The risks and benefits of the procedure and the sedation options and risks were discussed with the patient. All questions were answered and informed consent was obtained. Patient identification and proposed procedure were verified by the physician in the pre-procedure area. Mental Status Examination: alert and oriented. Airway Examination: normal oropharyngeal airway and neck mobility. Respiratory Examination: clear to auscultation. CV Examination: normal. ASA Grade Assessment: II - A patient with mild systemic disease. After reviewing the risks and benefits, the patient was deemed in satisfactory condition to undergo the procedure. The anesthesia plan was to use monitored anesthesia care (MAC). Immediately prior to administration of medications, the patient was re-assessed for adequacy to receive sedatives. The heart rate, respiratory rate, oxygen saturations, blood pressure, adequacy of pulmonary ventilation, and response to care were monitored throughout the procedure. The physical status of the patient was re-assessed after the procedure. After I obtained informed consent, the scope was passed under direct vision. Throughout the procedure, the patient's blood pressure, pulse, and oxygen saturations were monitored continuously. The Colonoscope was introduced through the anus and advanced to the splenic flexure. The colonoscopy was performed without difficulty. The patient tolerated the procedure well. The quality of the bowel preparation was 90 percent obscured. Scope In: 6:55:30 AM Scope Out: 6:58:04 AM Total Procedure Duration Time 0 hours 2 minutes 34 seconds Findings: The perianal and digital rectal examinations were normal. Pertinent negatives include normal sphincter tone. Extensive amounts of semi-liquid semi-solid solid stool was found in the entire colon, precluding visualization. Lavage of the area was performed using copious amounts of sterile water, resulting in incomplete clearance with continued poor visualization. Impression: - Stool in the entire examined colon. - No specimens collected. Recommendation: - Discharge patient to home. - Resume previous diet. - Continue present medications. - Repeat colonoscopy because the bowel preparation was poor. Procedure Code(s): --- Professional --- 88773, 53, Colonoscopy, flexible; diagnostic, including collection of specimen(s) by brushing or washing, when performed (separate procedure) CPT copyright 2021 [employer]. All rights reserved. The codes documented in this report are preliminary and upon orthopedic coder review may be revised to meet current compliance requirements. Misael Moore DO 12/12/2024 7:03:41 AM This report has been signed electronically. Number of Addenda: 0 Note Initiated On: 12/12/2024 6:26 AM
--- NOTE | 2024-12-12 07:07 | PCM.POST.ANE ---
Anesthesia: Postop Eval I Current Vital Signs Temperature: 97 F Pulse Rate: 75 Blood Pressure: 97/54 Respiratory Rate: 16 Pulse Ox: 100 Assessment Airway patent: Yes Spontaneous unlabored respirations: Yes nausea: No Vomiting: No Anesthesia Complication: No Fluid Hydration Crystalloid volume administer (ml): 100 Total IV fluid infused: 100 Progress Note Anesthesia document: Postop Eval 1 completed: Yes
--- NOTE | 2024-12-12 20:17 | POSTOPAN2_ITS ---
Anesthesia Postop Eval I Sum Postop Eval Completion status Anesthesia document: Postop Eval 1 completed: Yes Anesthesia Postop Eval I Summary Anesthesia Postop Eval I Summary: Anesthesia Postop Eval I: Assessment Summary Airway patent Yes 12/12/24 07:07 [email or web address] Spontaneous unlabored Yes 12/12/24 07:07 [email or web address] respirations Mental status nausea No 12/12/24 07:07 [email or web address] Vomiting No 12/12/24 07:07 [email or web address] [email or web address] Anesthesia Postop Eval I: Fluid Summary Crystalloid volume administer 100 12/12/24 07:07 [email or web address] (ml) Colloids volume administered ( ml) Blood Product volume administered (ml) Total IV fluid infused 100 12/12/24 07:07 [email or web address] Anesthesia Postop Eval I: Summary Notes Anesthesia Complication No 12/12/24 07:07 [email or web address] Anesthesia Complication Comment: Post-operative progress note Anesthesia: Postop Eval II Evaluation Mental status: Awake and Calm Pain Level: 1 nausea: No Vomiting: No Complications Anesthesia Complication: No
--- NOTE | 2024-12-12 20:17 | PCM.POSTANE2 ---
Anesthesia Postop Eval I Sum Postop Eval Completion status Anesthesia document: Postop Eval 1 completed: Yes Anesthesia Postop Eval I Summary Anesthesia Postop Eval I Summary: Anesthesia Postop Eval I: Assessment Summary Airway patent Yes 12/12/24 07:07 [email or web address] Spontaneous unlabored Yes 12/12/24 07:07 [email or web address] respirations Mental status nausea No 12/12/24 07:07 [email or web address] Vomiting No 12/12/24 07:07 [email or web address] Anesthesia Postop Eval I: Fluid Summary Crystalloid volume administer 100 12/12/24 07:07 [email or web address] (ml) Colloids volume administered ( ml) Blood Product volume administered (ml) Total IV fluid infused 100 12/12/24 07:07 [email or web address] Anesthesia Postop Eval I: Summary Notes Anesthesia Complication No 12/12/24 07:07 [email or web address] Anesthesia Complication Comment: Post-operative progress note Anesthesia: Postop Eval II Evaluation Mental status: Awake and Calm Pain Level: 1 nausea: No Vomiting: No Complications Anesthesia Complication: No
== END 2024-12-12 07:52 | disposition home or self-care (01) ==
LOC: EN 05:21 → AC 05:22
PROVIDERS: PCP Family Medicine; Referring Provider Family Medicine; Visit Provider Internal Medicine Gastroenterology
PROC: 0DJD8ZZ Inspection of Lower Intestinal Tract, Via Natural or Artificial Opening Endoscopic (ICD-10-PCS; CPT 45378; principal; 2024-12-12 06:25)
DX: K52.9 Noninfective gastroenteritis and colitis, unspecified (principal); J44.9 Chronic obstructive pulmonary disease, unspecified; Z87.891 Personal history of nicotine dependence; E78.00 Pure hypercholesterolemia, unspecified; K57.30 Diverticulosis of large intestine without perforation or abscess without bleeding; K62.5 Hemorrhage of anus and rectum
CPT/HCPCS: 45378

== ENCOUNTER 2025-01-16 05:24 | Day surgery (SDC) | payer BC, SELFPAY ==
[2025-01-16] VITALS (8 sets, daily range): BP systolic 86–106; BP diastolic 51–61; PULSE 72–83; RESP 16; TEMP 36.6–36.9; O2SAT 97–100; BMI 35.8
--- OUTSIDE RECORDS SUMMARY | 2025-01-16 05:27 | XMS RPT_ITS | CCD ---
Author Organization [facility] Team Providers Care Concrete Crusher Loader Operator Name Role Phone BRET LATIF DO, V Primary Care Physician DEANDRA VELASCO., DR. SIFUENTES Attending Unavaila ble BRET LATIF DO, V Primary Care Unavailable CLARICE LIRIANO MD Primary Care Unavailable JENNIFER ROLAND CNP Consulting Unavailable CLARICE LIRIANO MD Admitting Unavailable CLARICE LIRIANO MD Attending Unavailable PROVIDER, UNKNOWN Consulting Unavailable PROVIDER, UNKNOWN Consulting Unavailable CLARICE LIRIANO MD Admitting Unavailable JENNIFER ROLAND CNP Consulting Unavailable CLARICE LIRIANO MD Attending Unavailable CLARICE LIRIANO MD Primary Care Unavailable PROVIDER, UNKNOWN Consulting Unavailable PROVIDER, UNKNOWN Consulting Unavailable JENNIFER ROLAND CNP Attending Unavailable JENNIFER ROLAND CNP Admitting Unavailable JENNIFER ROLAND CNP Consulting Unavailable JENNIFER ROLAND CNP Primary Care Unavailable PROVIDER, UNKNOWN Consulting Unavailable PROVIDER, UNKNOWN Consulting Unavailable JENNIFER ROLAND CNP Admitting Unavailable JENNIFER ROLAND CNP Attending Unavailable JENNIFER ROLAND CNP Consulting Unavailable JENNIFER ROLAND CNP Primary Care Unavailable PROVIDER, UNKNOWN Consulting Unavailable PROVIDER, UNKNOWN Consulting Unavailable JENNIFER ROLAND CNP Admitting Unavailable ASUNCIONJENNIFER NUNN CNP Attending Unavailable ASUNCIONJENNIFER NUNN CNP Consulting Unavailable JENNIFER ROLAND CNP Primary Care Unavailable PROVIDER, UNKNOWN Consulting Unavailable PROVIDER, UNKNOWN Consulting Unavailable Asuncion ASIAN STUDIES PROFESSOR-CJennifer Primary Care Provider Deandra VELASCO, Dr. Sifuentes Attending Provider Dr. Clarice Liriano MD Referring Provider Coral Martinez MD Primary Care Provider Coral Martinez MD Attending Provider Coral Martinez MD Referring Provider [phone] Lauryn JOHN, Dr. Vargas Emergency Provider Sheila Kong Attending Provider [phone] Deandra VELASCO, Dr. Sifuentes Attending Provider Deandra VELASCO, Dr. Sifuentes Referring Provider Lauryn JOHN, Dr. Vargas Attending Provider Sheila Kong Referring Provider Juan VELASCO, Chalon Primary Care Provider [phone] Juan VELASCO, Coral Referring Provider [phone] Friend , Dr. Douglas Attending Provider Friend , Dr. Douglas Other Provider Asuncion ASIAN STUDIES PROFESSOR, Jennifer Primary Care Unavailable Vellanki, Clarice Attending Unavailable Vellanki, Clarice Referring Unavailable Vellanki, Clarice Referring Unavailable Vellanki, Clarice Attending Unavailable Juan, Chalon Primary Care Unavailable Atanasov, Sheila Attending Unavailable Atanasov, Sheila Referring Unavailable Juan, Chalon Primary Care Unavailable FriendMisael Attending Unavailable Juan, Chalon Referring Unavailable Juan, Chalon Primary Care Unavailable Atanasov, Sheila Attending Unavailable Atanasov, Sheila Referring Unavailable Juan, Chalon Primary Care Unavailable Atanasov, Sheila Attending Unavailable Juan, Chalon Referring Unavailable Juan, Chalon Primary Care Unavailable FriendMisael Consulting Unavailable FriendMisael Attending Unavailable Juan, Chalon Referring Unavailable Juan, Chalon Primary Care Unavailable Vellanki, Clarice Referring Unavailable Vellanki, Clarice Attending Unavailable Juan, Chalon Primary Care Unavailable Juan, Chalon Primary Care Unavailable Vellanki, Clarice Referring Unavailable Vellanki, Clarice Attending Unavailable Juan, Chalon Primary Care Unavailable Juan, Chalon Attending Unavailable Juan, Chalon Referring Unavailable Asuncion ASIAN STUDIES PROFESSOR, Jennifer Primary Care Unavailable Vellanki, Clarice Attending Unavailable Vellanki, Clarice Referring Unavailable Lauryn, Sam Attending Unavailable Juan, Chalon Primary Care Unavailable FriendMisael Attending Unavailable Juan, Chalon Referring Unavailable Juan, Chalon Primary Care Unavailable Allergies Allergy Classification Reported Allergen(s) Allergy Type Date of Onset Reaction(s) Facility (11 sources) Amoxicillin; Translations: [amoxicillin] Drug Allergy 05-19-2022 RASH, Other [facility] Comment on above: YEAST INFECTIONS (1 source) Amoxicillin Drug Allergy [facility] Repository (1 source) Amoxicillin Drug Allergy 01-11-2025 [facility] Repository Medications Current Medications Medication Drug Class(es) Dates Sig (Normalized) Sig (Original) acetaminophen 325 mg oral tablet (2 sources) Start: 07-21-2011 Tylenol 325 mg oral tablet Dose : 650 mg = 2 tab(s), Oral, q4h, PRN for pain, # 120 tab(s), 0 Refill(s) Start Date: 07/21/11 Status: Ordered [id number] 200 actuat albuterol 0.09 mg/actuat metered dose inhaler (9 sources) beta2-Adrenergic Agonist Start: 05-19-2022 Albuterol Sulfate 90 mcg/actuation HFA aerosol inhaler Active 2 NMA INHALATION NEEDED as needed for COPD May 19, 2022 1:00am Start: 05-19-2022 Albuterol Sulf ate Active 2 INH INHALATION NEEDED May 19, 2022 12:00am atorvastatin 10 mg oral tablet (9 sources) HMG-CoA Reductase Inhibitor Start: 05-19-2022 take [...] DULoxetine 60 mg delayed release oral capsule (9 sources) Serotonin and Norepinephrine Reuptake Inhibitor Start: [...] 12:00am Ferrous Sulfate 28 mg iron Tablet (8 sources) Start: 05-19-2022 take 1 tablet by mouth once daily Ferrous Sulfate 28 mg iron Tablet Active 28 mg PO DAILY May 19, 2022 1:00am 30 actuat fluticasone furoate 0.2 mg/actuat / vilanterol 0.025 mg/actuat dry powder inhaler (9 sources) Corticosteroid, beta2-Adrenergic Agonist Start: 05-19-2022 Fluticasone Furoate-Vilanterol 200-25 mcg/dose blister with device Active 1 NMA INHALATION DAILY May 19, 2022 1:00am Start: 05-19-2022 Fluticasone Fu roate-Vilanterol Active 1 INH INHALATION DAILY May 19, 2022 12:00am folic acid 1 mg oral tablet (9 sources) Start: 05-19-2022 take 2 tablets by mouth once daily Folic Acid 1 mg tablet Active 2 mg PO DAILY May 19, 2022 1:00am Start: 05-19-2022 take 2 tablets by mo [facility] twice daily Folic Acid 1 mg tablet Active 2 mg PO TWICE A DAY May 19, 2022 1:00am Start: 05-19-2022 take 2 mg by mouth twice daily Folic Acid Active 2 MG PO TWICE A DAY May 19, 2022 12:00am hydroxychloroquine sulfate 200 mg oral tablet (9 sources) Antimalarial, Antirheumatic Agent Start: 05-19-2022 take 1 tablet by mouth twice daily Hydroxychloroquine 200 mg tablet Active 200 mg PO TWICE A DAY May 19, 2022 1:00am levothyroxine sodium 0.137 mg oral tablet (1 source) l-Thyroxine Start: 12-11-2024 take 1 tablet by mouth once daily Levothyroxine (Levothyroxine 137 Mcg Tablet) 137 mcg tablet Active 137 ug PO DAILY December 11, 2024 12:00am linaclotide 0.29 mg oral capsule (1 source) Guanylate Cyclase-C Agonist Start: 12-11-2024 take 1 capsule by mouth once daily Linaclotide (Linaclotide 290 Mcg Capsule) 290 mcg capsule Active 290 ug PO DAILY December 11, 2024 12:00am methotrexate 2.5 mg oral tablet (9 sources) Folate Analog Metabolic Inhibitor Start: 05-19-2022 Methotrexate Sodium 2.5 mg tablet Active 20 mg PO TH May 19, 2022 1:00am Start: 05-19-2022 Methotrexate S odium Active 20 MG PO TH May 19, 2022 12:00am Multivitamin preparation (1 source) Start: 05-19-2022 take 1 tablet by mouth once daily Multivitamin Active 1 TABLET PO DAILY May 19, 2022 12:00am Multivitamin Tablet (8 sources) Start: 05-19-2022 Multivitamin Tablet Active 1 {tbl} PO DAILY May 19, 2022 1:00am ondansetron 4 mg disintegrating oral tablet (12 sources) Serotonin-3 Receptor Antagonist Start: 10-14-2024 End: 12-11-2024 take 1 tablet by mouth every eight hours as needed for nausea Ondansetron 4 mg tablet,disintegrat ing Active 4 mg PO EVERY 8 HOURS NEEDED as needed for Nausea 10 3 0 October 14, 2024 10:06pm pantoprazole 40 mg delayed release oral tablet (9 sources) Proton Pump Inhibitor Start: 05-19-2022 take 1 tablet by mouth once daily Pantoprazole 40 mg tablet,delayed release (DR/EC) Active 40 mg PO DAILY May 19, 2022 1:00am prazosin 1 mg oral capsule (1 source) alpha-Adrenergic Winter Start: 12-11-2024 take 1 capsule by mouth at bedtime Prazosin 1 mg capsule Active 1 mg PO AT BEDTIME December 11, 2024 12:00am predniSONE 10 mg oral tablet (9 sources) Start: 05-19-2022 Prednisone 10 mg tablet Active 10 mg PO NEEDED as needed for RHEUMATOID ARTHRITIS May 19, 2022 1:00am Tirzepatide (Weight Loss) (5 sources) Start: 10-17-2024 Tirzepatide (Weight Loss) (Zepbound) [...] Refill(s), q4-6h Start Date: 07/21/11 Status: Ordered leucovorin 15 mg oral tablet (9 sources) Folate Analog Start: 05-19-2022 take 1 tablet by mouth once Leucovorin Calcium 15 mg tablet Active 15 mg PO FR May 19, 2022 1:00am On Hold: per pt Start: 05-19-2022 Leucovorin Lupe cium 15 mg tablet Active 15 mg PO FR May 19, 2022 1:00am Problems Active Problems Problem Classification Problem Date [...] (primary) hypertension] Onset: 5 Chronic Gastrointestinal hemorrhage (14 sources) Gastrointestinal hemorrhage; Translations: [Hemorrhage of anus and rectum] Onset: 5 10-17-2024 Episodic Other aftercare (1 source) Long-term current use of drug therapy; Translations: [Other residential (current) drug therapy] Episodic Other connective tissue disease (1 source) Fibromyalgia; Translations: [Fibromyalgia] Episodic Other gastrointestinal disorders (1 source) 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; 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] Chronic Other gastrointestinal disorders (9 sources) Diarrhea; Translations: [Diarrhea, unspecified] 10-17-2024 Episodic Other gastrointestinal disorders (1 source) Diarrhea, unspecified; Translations: [Diarrhea, unspecified] Onset: 5 Episodic Rheumatoid arthritis and related disease (2 [...] Test Name Value Interpretation Reference Range Facility Colonoscopy Reporton 025 Colonoscopy Report [facility] Medical Records Department [address] [place] [address] Colonoscopy Report MR#: [id number] Acct: [id number] Name: NGOC KAUFFMAN Rep #: [id number] : 1980 44 From: Misael Moore DO PCP: Dr. Coral Martinez MD Status:[facility] Patient Name: Ngoc Kauffman Procedure Date: 12/12/2024 6:26 AM Date of : 1980 Age: 44 Procedure: Colonoscopy Indications: Chronic diarrhea, Hematochezia Providers: Misael Moore DO Referring MD: Coral Martinez Md Medicines: Monitored Anesthesia Care Patient Profile: This is a 44 year old female. Refer to note in patient chart for documentation of history and physical. Last Colonoscopy: none. The patient's first colonoscopy is today. Complications: No immediate complications. Procedure: Pre-Anesthesia Assessment: - Prior to the procedure, a History and Physical was performed, and patient medications and allergies were reviewed. The patient is competent. The risks and benefits of the procedure and the sedation options and risks were discussed with the patient. All questions were answered and informed consent was obtained. Patient identification and proposed procedure were verified by the physician in the pre-procedure area. Mental Status Examination: alert and oriented. Airway Examination: normal oropharyngeal airway and neck mobility. Respiratory Examination: clear to auscultation. CV Examination: normal. ASA Grade Assessment: II - A patient with mild systemic disease. After reviewing the risks and benefits, the patient was deemed in satisfactory condition to undergo the procedure. The anesthesia plan was to use monitored anesthesia care (MAC). Immediately prior to administration of medications, the patient was re-assessed for adequacy to receive sedatives. The heart rate, respiratory rate, oxygen saturations, blood pressure, adequacy of pulmonary ventilation, and response to care were monitored throughout the procedure. The physical status of the patient was re-assessed after the procedure. After I obtained informed consent, the scope was passed under direct vision. Throughout the procedure, the patient's blood pressure, pulse, and oxygen saturations were monitored continuously. The Colonoscope was introduced through the anus and advanced to the splenic flexure. The colonoscopy was performed without difficulty. The patient tolerated the procedure well. The quality of the bowel preparation was 90 percent obscured. Scope In: 6:55:30 AM Scope Out: 6:58:04 AM Total Procedure Duration Time 0 hours 2 minutes 34 seconds Findings: The perianal and digital rectal examinations were normal. Pertinent negatives include normal sphincter tone. Extensive amounts of semi-liquid semi-solid solid stool was found in the entire colon, precluding visualization. Lavage of the area was performed using copious amounts of sterile water, resulting in incomplete clearance with continued poor visualization. Impression: - Stool in the entire examined colon. - No specimens collected. Recommendation: - Discharge patient to home. - Resume previous diet. - Continue present medications. - Repeat colonoscopy because the bowel preparation was poor. Procedure Code(s): --- Professional --- 06928, 53, Colonoscopy, flexible; diagnostic, including collection of specimen(s) by brushing or washing, when performed (separate procedure) CPT copyright 2021 [employer]. All rights reserved. The codes documented in this report are preliminary and upon care center manager review may be revised to meet current compliance requirements. Misael Moore DO 12/12/2024 7:03:41 AM This report has been signed electronically. Number of Addenda: 0 Note Initiated On: 12/12/2024 6:26 AM 12/12/24 0704 Date Misael Moore DO Cosignumang Signature: Date (if indicated) CC: Dr. Coral Martinez MD; Misael Moore DO Date Dictated: 12/12/24 0626 Date Transcribed: Marble Mason: MASSIEL Signed [facility] MR/OP.Soledad 12-12-2024 MR/OP.[facility] Medical Records Department [address] [place] [address] Provation Physician Letter MR#: [id number] Acct: [id number] Name: NGOC KAUFFMAN Rep #: [id number] : 1980 44 From: Misael Moore DO PCP: Dr. Coral Martinez MD Status:REG [facility] 12/12/2024 Coral Martinez Md Re : Colonoscopy procedure for Ngoc Kauffman Dear Juan This procedure was performed on Thursday, December 12, 2024. My impressions and recommendations are as follows: Impressions : - Stool in the entire examined colon. - No specimens collected. Recommendations : - Discharge patient to home. - Resume previous diet. - Continue present medications. - Repeat colonoscopy because the bowel preparation was poor. My findings are described in the full procedure note, which is enclosed. If I can be of further assistance, please feel free to contact me at . Sincerely, Misael Moore DO 12/12/2024 7:03:41 AM This report has been signed electronically. 12/12/24703 Date Misael Moore DO Cosignumang Signature: Date (if indicated) CC: Dr. Coral Martinez MD; Misael Moore DO Date Dictated: 12/12/24625 Date Transcribed: Marble Mason: RF Signed [facility] MR/POSTOP.KRYSTIAN 12-12-2024 MR/POSTOP.[facility] Medical Records Department [address] [place] [address] Anesthesia Postop Eval I 12/12/24706 MR#: [id number] Acct: [id number] Name: GNOC KAUFFMAN Rep #: [id number] : 1980 44 From: Andrew Cassidy CRNA PCP: Dr. Coral Martinez MD Status:REG [facility] Y Race: C Location: [place] [address] Anesthesia: Postop Eval I Current Vital Signs Temperature: 97 F Pulse Rate: 75 Blood Pressure: 97/54 Respiratory Rate: 16 Pulse Ox: 100 Assessment Airway patent: Yes Spontaneous unlabored respirations: Yes nausea: No Vomiting: No Anesthesia Complication: No Fluid Hydration Crystalloid volume administer (ml): 100 Total IV fluid infused: 100 Progress Note Anesthesia document: Postop Eval 1 completed: Yes 12/12/24706 Date Andrew Danby APPLE PEELER OPERATOR Cosigner Signature: Date CC: Signed Normal [facility] MR/[id number] 12-12-2024 [facility] Medical Records Department [address] [place] [address] Anesthesia Postop Eval II 12/12/242016 MR#: [id number] Acct: [id number] Name: NGOC KAUFFMAN Rep #: [id number] : 1980 44 From: Travis Kearns MD PCP: Dr. Coral Martinez MD Status:[facility] Y Race: C Location: [place] Anesthesia Postop Eval I Sum Postop Eval Completion status Anesthesia document: Postop Eval 1 completed: Yes Anesthesia Postop Eval I Summary Anesthesia Postop Eval I Summary: Anesthesia Postop Eval I: Assessment Summary Airway patent Yes 12/12/24 07:07 APPLE PEELER OPERATOR.TNES Spontaneous unlabored Yes 12/12/24 07:07 APPLE PEELER OPERATOR.TNES respirations Mental status nausea No 12/12/24 07:07 APPLE PEELER OPERATOR.TNES Vomiting No 12/12/24 07:07 APPLE PEELER OPERATOR.TNES Anesthesia Postop Eval I: Fluid Summary Crystalloid volume administer 100 12/12/24 07:07 APPLE PEELER OPERATOR.TNES (ml) Colloids volume administered ( ml) Blood Product volume administered (ml) Total IV fluid infused 100 12/12/24 07:07 SYDNI Anesthesia Postop Eval I: Summary Notes Anesthesia Complication No 12/12/24 07:07 APPLE PEELER OPERATOR.GARY Anesthesia Complication Comment: Post-operative progress note Anesthesia: Postop Eval II Evaluation Mental status: Awake and Calm Pain Level: 1 nausea: No Vomiting: No Complications Anesthesia Complication: No 12/12/242016 Date Travis Kearns MD Cosigner Signature: Date CC: Signed Normal [facility] Absolute lymphocyte countOrd ered By: Clarice Liriano on 11-13-2024 Lymphocytes Auto (Unsp spec) [#/Vol] 1.87 10*3/uL 0.83-4.51 [facility] Absolute neutrophil countOrd ered By: Clarice Liriano on 11-13-2024 Neutrophils (Bld) [#/Vol] 4.1 10*3/uL 2.0-7.7 [facility] Anion gap in Serum or Plasma Ordered By: Clarice Liriano on 11-13-2024 Anion gap [Moles/Vol] 12 mmol/L 5-15 [facility] Automated lymphocyte count a s percentage of total leukocytesOrdered By: Clarice Liriano on 11-13-2024 Lymphocytes/100 WBC Auto (Unsp spec) 26.9 % 19-41 [facility] BUN/creatinine ratioOrdered By: Claricehanane Liriano on 11-13-2024 Urea nitrogen/Creatinine [Mass ratio] 10.5 mg/mg 10-20 [facility] Basophil percentageOrdered B y: Clarice Liriano on 11-13-2024 Basophils/100 WBC (Bld) 0.4 % 0-1 [facility] Bilirubin, totalOrdered By: Clarice Liriano on 11-13-2024 Bilirubin [Mass/Vol] 0.42 mg/dL 0.00-1.30 [facility] CBC W/Diff, Automatedon 07-0 7-2024 Absolute Lymph 1.87 X10 3/uL Normal 0.83-4.51 [facility] Comment on above: Performed By: #### L 100.0100, L500.4050 ####[facility] [id number] [place], [address] Absolute Neut 4.1 X10 3/uL Normal 2.0-7.7 [facility] Comment on above: Performed By: #### L 100.0100, L500.4050 ####[facility] [id number] [place], [address] Basophils/100 WBC (Bld) 0.4 % Normal 0-1 [facility] Comment on above: Performed By: #### L 100.0100, L500.4050 ####[facility] [address] [place], [address] Eosinophils/100 WBC (Bld) 1.4 % Normal 0-5 [facility] Comment on above: Performed By: #### L 100.0100, L500.4050 ####[facility] [address] [place], [address] Erythrocyte distribution width (RBC) [Ratio] 13.7 % Normal 11.6-14.6 [facility] Comment on above: Performed By: #### L 100.0100, L500.4050 ####[facility] [address] [place], [address] Hematocrit (Bld) [Volume fraction] 37.8 % Normal 37-47 [facility] Comment on above: Performed By: #### L 100.0100, L500.4050 ####[facility] [address] [place], [address] Hemoglobin (Bld) [Mass/Vol] 12.6 g/dL Normal 12.0-15.0 [facility] Comment on above: Performed By: #### L 100.0100, L500.4050 ####[facility] [address] [place], [address] IG% 0.400 Normal 0.0-0.9 [facility] Comment on above: Result Comment: IG% - Immature Granulocytes (promyelocytes, myelocytes and metamyelocytes) > 1% indicates that a LEFT SHIFT is Present. Performed By: #### L 100.0100, L500.4050 ####[facility] [address] [place], [address] Lymphocytes/100 WBC (Bld) 26.9 % Normal 19-41 [facility] Comment on above: Performed By: #### L 100.0100, L500.4050 ####[facility] [address] [place], [address] MCH (RBC) [Entitic mass] 32.1 pg High 27.0-32.0 [facility] Comment on above: Performed By: #### L 100.0100, L500.4050 ####[facility] [address] [place], [address] MCHC (RBC) [Mass/Vol] 33.3 g/dL Normal 32-36 [facility] Comment on above: Performed By: #### L 100.0100, L500.4050 ####[facility] [address] [place], [address] MCV (RBC) [Entitic vol] 96.2 fL Normal 81-99 [facility] Comment on above: Performed By: #### L 100.0100, L500.4050 ####[facility] [address] [place], [address] Monocytes/100 WBC (Bld) 11.7 % High 0-10 [facility] Comment on above: Performed By: #### L 100.0100, L500.4050 ####[facility] [address] [place], [address] Neutrophils/100 WBC (Bld) 59.2 % Normal 47-70 [facility] Comment on above: Performed By: #### L 100.0100, L500.4050 ####[facility] [address] [place], [address] Nucleated RBC (Bld) [#/Vol] 0 10*3/uL Normal 0-5 [facility] Comment on above: Performed By: #### L 100.0100, L500.4050 ####[facility] [address] [place], [address] Platelet mean volume (Bld) [Entitic vol] 10.5 fL Normal 6.2-12.0 [facility] Comment on above: Performed By: #### L 100.0100, L500.4050 ####[facility] [address] [place], [address] Platelets (Bld) [#/Vol] 233 10*3/uL Normal 150-450 [facility] Comment on above: Performed By: #### L 100.0100, L500.4050 ####[facility] [address] [place], [address] RBC (Bld) [#/Vol] 3.93 10*6/uL Low 4.2-5.4 [facility] Comment on above: Performed By: #### L 100.0100, L500.4050 ####[facility] [address] [place], [address] RDW SD 48.8 fl High 35.1-43.9 [facility] Comment on above: Performed By: #### L 100.0100, L500.4050 ####[facility] [address] [place], [address] WBC (Bld) [#/Vol] 7.0 10*3/uL Normal 4.4-11.0 [facility] Comment on above: Performed By: #### L 100.0100, L500.4050 ####[facility] [address] [place], [address] Carbon dioxide, total [Moles /volume] in Central venous bloodOrdered By: Clarice Liriano on 11-13-2024 CO2 [Moles/Vol] 20.3 mmol/L Low 21.0-32.0 [facility] Chloride assayOrdered By: Lynn Liriano on 11-13-2024 Chloride [Moles/Vol] 105 mmol/L 98-108 [facility] Comprehensive Metabolic Prof ilon 11-13-2024 Albumin [Mass/Vol] 4.3 g/dL Normal 3.5-5.0 [facility] Comment on above: Performed By: #### L 100.0100, L500.4050 ####[facility] [address] [place], [address] Albumin/Globulin [Mass ratio] 1.6 {ratio} Normal 0.9-2.4 [facility] Comment on above: Performed By: #### L 100.0100, L500.4050 ####[facility] [address] [place], [address] ALK PHOS 61 U/L Normal 35-104 [facility] Comment on above: Performed By: #### L 100.0100, L500.4050 ####[facility] [address] [place], [address] ALT [Catalytic activity/Vol] 25 U/L Normal <=34 [facility] Comment on above: Performed By: #### L 100.0100, L500.4050 ####[facility] [address] [place] [place], [address] AST [Catalytic activity/Vol] 19 U/L Normal <=31 [facility] [facility] Comment on above: Performed By: #### L 100.0100, L500.4050 ####[facility] [address] [place], [address] Bilirubin [Mass/Vol] 0.42 mg/dL Normal 0.00-1.30 [facility] Comment on above: Performed By: #### L 100.0100, L500.4050 ####[facility] [address] [place], [address] BUN/CRE 10.5 RATIO Normal 10-20 [facility] Comment on above: Performed By: #### L 100.0100, L500.4050 ####[facility] [address] [place], [address] Calcium [Mass/Vol] 9.4 mg/dL Normal 7.6-11.0 [facility] Comment on above: Performed By: #### L 100.0100, L500.4050 ####[facility] [address] [place], [address] Chloride [Moles/Vol] 105 mmol/L Normal 98-108 [facility] Comment on above: Performed By: #### L 100.0100, L500.4050 ####[facility] [address] [place], [address] CO2 [Moles/Vol] 20.3 mmol/L Low 21.0-32.0 [facility] Comment on above: Performed By: #### L 100.0100, L500.4050 ####[facility] [address] [place], [address] Creatinine [Mass/Vol] 0.84 mg/dL Normal 0.70-1.20 [facility] Comment on above: Performed By: #### L 100.0100, L500.4050 ####[facility] [address] [place], [address] GAP 12 Normal 5-15 [facility] Comment on above: Performed By: #### L 100.0100, L500.4050 ####[facility] [address] [place], [address] GFR/1.73 sq M.predicted among non-blacks MDRD (S/P/Bld) [Vol rate/Area] 88 mL/min/{1.73_m2} Normal >60 [facility] Comment on above: Result Comment: mL/m in/1.73m2 CKD-EPI Creatinine Equation (2020) Performed By: #### L 100.0100, L500.4050 ####[facility] [address] [place], [address] Globulin (S) [Mass/Vol] 2.8 g/dL Normal 2.2-4.2 [facility] Comment on above: Performed By: #### L 100.0100, L500.4050 ####[facility] [address] [place], [address] Glucose [Mass/Vol] 96 mg/dL Normal 70-99 [facility] Comment on above: Performed By: #### L 100.0100, L500.4050 ####[facility] [address] [place], [address] Potassium [Moles/Vol] 4.2 mmol/L Normal 3.3-5.1 [facility] Comment on above: Performed By: #### L 100.0100, L500.4050 ####[facility] [address] [place], [address] Sodium [Moles/Vol] 137 mmol/L Normal 133-145 [facility] Comment on above: Performed By: #### L 100.0100, L500.4050 ####[facility] [address] [place], [address] T PROT 7.0 g/dL Normal 5.9-8.4 [facility] Comment on above: Performed By: #### L 100.0100, L500.4050 ####[facility] [address] [place], [place], [id number] Urea nitrogen [Mass/Vol] 9 mg/dL Normal 4-19 [facility] Comment on above: Performed By: #### L 100.0100, L500.4050 ####[facility] [address] [place], [address] Eosinophil percentageOrdered By: Clarice Liriano on 11-13-2024 Eosinophils/100 WBC (Bld) 1.4 % 0-5 [facility] Erythrocyte distribution wid th ratioOrdered By: Clarice Liriano on 11-13-2024 Erythrocyte distribution width (RBC) [Ratio] 13.7 % 11.6-14.6 [facility] Erythrocyte distribution wid th standard deviationOrdered By: Clarice Liriano on 11-13-2024 Erythrocyte distribution width (RBC) [Ratio] 48.8 fl High 35.1-43.9 [facility] Glomerular filtration rate ( GFR) estimation/1.73 sq m using serum, plasma, or whole bOrdered By: Clarice Liriano on 11-13-2024 GFR/1.73 sq M.predicted among non-blacks MDRD (S/P/Bld) [Vol rate/Area] 88 mL/min/{1.73_m2} >60 [facility] Comment on above: mL/min/1.73m2 CKD-EP I Creatinine Equation (2020) Hematocrit Auto (Bld) [Volum e fraction]Ordered By: Clarice Liriano on 11-13-2024 Hematocrit (Bld) [Volume fraction] 37.8 % 37-47 [facility] Hemoglobin measurementOrdere d By: Clarice Liriano on 11-13-2024 Hemoglobin (Bld) [Mass/Vol] 12.6 g/dL 12.0-15.0 [facility] Immature granulocytes/100 WB C Auto (Bld)Ordered By: Clarice Liriano on 11-13-2024 Immature granulocytes/100 WBC (Bld) 0.400 % 0.0-0.9 [facility] Comment on above: IG% - Immature Granu locytes (promyelocytes, myelocytes and metamyelocytes) > 1% indicates that a LEFT SHIFT is Present. Laboratory - Chemistry and C hemistry - challengeOrdered By: Clarice Liriano on 11-13-2024 AST [Catalytic activity/Vol] 19 U/L <32 [facility] MCV (mean corpuscular volume ) determinationOrdered By: Clarice Liriano on 11-13-2024 MCV (RBC) [Entitic vol] 96.2 fL 81-99 [facility] Mean corpuscular hemoglobin (MCH) determinationOrdered By: Clarice Liriano on 11-13-2024 MCH (RBC) [Entitic mass] 32.1 pg High 27.0-32.0 [facility] Mean corpuscular hemoglobin concentration (MCHC) determinationOrdered By: Clarice Liriano on 11-13-2024 MCHC (RBC) [Mass/Vol] 33.3 g/dL 32-36 [facility] Mean platelet volume determi nationOrdered By: Clarice Liriano on 11-13-2024 Platelet mean volume (Bld) [Entitic vol] 10.5 fL 6.2-12.0 [facility] Monocyte percentageOrdered B y: Clarice Liriano on 11-13-2024 Monocytes/100 WBC (Bld) 11.7 % High 0-10 [facility] Neutrophil percentageOrdered By: Clarice Liriano on 11-13-2024 Neutrophils/100 WBC (Bld) 59.2 % 47-70 [facility] Nucleated red blood cell per centageOrdered By: Clarice Liriano on 11-13-2024 Nucleated RBC/100 WBC (Bld) [Ratio] 0 % 0-5 [facility] Platelet countOrdered By: Lynn Liriano on 11-13-2024 Platelets (Bld) [#/Vol] 233 10*3/uL 150-450 [facility] Potassium measurement (mass/ volume)Ordered By: Clarice Liriano on 11-13-2024 Potassium (Unsp spec) [Mass/Vol] 4.2 mmol/L 3.3-5.1 [facility] RBC Auto (Bld) [#/Vol]Ordere d By: Clarice Liriano on 11-13-2024 RBC (Bld) [#/Vol] 3.93 10*6/uL Low 4.2-5.4 [facility] Serum creatinine measurement (mass/volume)Ordered By: Clarice Liriano on 11-13-2024 Creatinine [Mass/Vol] 0.84 mg/dL 0.70-1.20 [facility] Serum globulin measurementOr dered By: Clarice Liriano on 11-13-2024 Globulin (S) [Mass/Vol] 2.8 g/dL 2.2-4.2 [facility] Serum glucose measurement (m ass/volume)Ordered By: Clarice Liriano on 11-13-2024 Glucose [Mass/Vol] 96 mg/dL 70-99 [facility] Serum or plasma alanine jordan otransferase (ALT) measurementOrdered By: Clarice Liriano on 11-13-2024 ALT [Catalytic activity/Vol] 25 U/L <35 [facility] Serum or plasma albumin chey urement (mass/volume)Ordered By: Clarice Liriano on 11-13-2024 Albumin [Mass/Vol] 4.3 g/dL 3.5-5.0 [facility] Serum or plasma albumin/glob ulin mass ratioOrdered By: Clarice Liriano on 11-13-2024 Albumin/Globulin [Mass ratio] 1.6 {ratio} 0.9-2.4 [facility] Serum or plasma alkaline yony sphatase measurementOrdered By: Clarice Liriano on 11-13-2024 ALP [Catalytic activity/Vol] 61 U/L 35-104 [facility] Serum or plasma calcium chey urement (mass/volume)Ordered By: Clarice Liriano on 11-13-2024 Calcium [Mass/Vol] 9.4 mg/dL 7.6-11.0 [facility] Serum or plasma urea nitroge n measurement (mass/volume)Ordered By: Clarice Liriano on 11-13-2024 Urea nitrogen [Mass/Vol] 9 mg/dL 4-19 [facility] Sodium levelOrdered By: Elana Liriano on 11-13-2024 Sodium [Moles/Vol] 137 mmol/L 133-145 [facility] Total proteinOrdered By: [place] koo Deandra on 11-13-2024 Protein [Mass/Vol] 7.0 g/dL 5.9-8.4 [facility] White blood cell (WBC) count Ordered By: Clarice Liriano on 11-13-2024 WBC (Bld) [#/Vol] 7.0 10*3/uL 4.4-11.0 [facility] Calprotectin, Stoolon [address] 443 ug/g Abnormal 0-120 [facility] Comment on above: Result Comment: Conc entration Interpretation Follow-Up < 5 - 50 ug/g Normal None >50 -120 ug/g Borderline Re-evaluate in 4-6 weeks >120 ug/g Abnormal Repeat as clinically indicated Performed at: [facility] [id number] Cable Placer: Fracisco Gallagher MD, Phone: [phone] Performed By: #### L 7000.0700 #### [facility] [address] [place] [address], [address] Calprotectin stoolOrdered By : Sheila Ray on 10-20-2024 Calprotectin stool 443 ug/g High 0-120 [facility] Comment on above: Concentration Interp retation Follow-Up< 5 - 50 ug/g Normal None>50 -120 ug/g Borderline Re-evaluate in 4-6 weeks >120 ug/g Abnormal Repeat as clinically indicatedPerformed at: [facility] [address] [id number] Director: Fracisco Gallagher MD, Phone: [phone] Absolute lymphocyte countOrd ered By: Sheila Ray on 10-17-2024 Lymphocytes Auto (Unsp spec) [#/Vol] 2.39 10*3/uL 0.83-4.51 [facility] Absolute neutrophil countOrd ered By: Sheila Ray on 10-17-2024 Neutrophils (Bld) [#/Vol] 4.4 10*3/uL 2.0-7.7 [facility] Automated lymphocyte count a s percentage of total leukocytesOrdered By: Sheila Cory on 10-17-2024 Lymphocytes/100 WBC Auto (Unsp spec) 31.7 % 19-41 [facility] Basophil percentageOrdered B y: Sheila Cory on 10-17-2024 Basophils/100 WBC (Bld) 0.5 % 0-1 [facility] CBC W/Diff, Automatedon 10-08-2024 Absolute Lymph 2.39 X10 3/uL Normal 0.83-4.51 [facility] Comment on above: Performed By: #### L 501.6710, L100.0100, L101.9900 ####[facility] [address] [place], [address] Absolute Neut 4.4 X10 3/uL Normal 2.0-7.7 [facility] Comment on above: Performed By: #### L 501.6710, L100.0100, L101.9900 ####[facility] [address] [place], [address] Basophils/100 WBC (Bld) 0.5 % Normal 0-1 [facility] Comment on above: Performed By: #### L 501.6710, L100.0100, L101.9900 ####[facility] [address] [place], [address] Eosinophils/100 WBC (Bld) 1.3 % Normal 0-5 [facility] Comment on above: Performed By: #### L 501.6710, L100.0100, L101.9900 ####[facility] [address] [place], [address] Erythrocyte distribution width (RBC) [Ratio] 13.1 % Normal 11.6-14.6 [facility] Comment on above: Performed By: #### L 501.6710, L100.0100, L101.9900 ####[facility] [address] [place], [address] Hematocrit (Bld) [Volume fraction] 39.0 % Normal 37-47 [facility] Comment on above: Performed By: #### L 501.6710, L100.0100, L101.9900 ####[facility] [address] [place], [address] Hemoglobin (Bld) [Mass/Vol] 12.8 g/dL Normal 12.0-15.0 [facility] Comment on above: Performed By: #### L 501.6710, L100.0100, L101.9900 ####[facility] [address] [place], [address] IG% 0.300 Normal 0.0-0.9 [facility] Comment on above: Result Comment: IG% - Immature Granulocytes (promyelocytes, myelocytes and metamyelocytes) > 1% indicates that a LEFT SHIFT is Present. Performed By: #### L 501.6710, L100.0100, L101.9900 ####[facility] [address] [place], [address] Lymphocytes/100 WBC (Bld) 31.7 % Normal 19-41 [facility] Comment on above: Performed By: #### L 501.6710, L100.0100, L101.9900 ####[facility] [address] [place], [address] MCH (RBC) [Entitic mass] 31.4 pg Normal 27.0-32.0 [facility] Comment on above: Performed By: #### L 501.6710, L100.0100, L101.9900 ####[facility] [address] [place], [address] MCHC (RBC) [Mass/Vol] 32.8 g/dL Normal 32-36 [facility] Comment on above: Performed By: #### L 501.6710, L100.0100, L101.9900 ####[facility] [address] [place], [address] MCV (RBC) [Entitic vol] 95.6 fL Normal 81-99 [facility] Comment on above: Performed By: #### L 501.6710, L100.0100, L101.9900 ####[facility] [address] [place], [address] Monocytes/100 WBC (Bld) 7.3 % Normal 0-10 [facility] Comment on above: Performed By: #### L 501.6710, L100.0100, L101.9900 ####[facility] [address] [place], [address] Neutrophils/100 WBC (Bld) 58.9 % Normal 47-70 [facility] Comment on above: Performed By: #### L 501.6710, L100.0100, L101.9900 ####[facility] [address] [place], [address] Nucleated RBC (Bld) [#/Vol] 0 10*3/uL Normal 0-5 [facility] Comment on above: Performed By: #### L 501.6710, L100.0100, L101.9900 ####[facility] [address] [place], [address] Platelet mean volume (Bld) [Entitic vol] 10.4 fL Normal 6.2-12.0 [facility] Comment on above: Performed By: #### L 501.6710, L100.0100, L101.9900 ####[facility] [address] [place], [address] Platelets (Bld) [#/Vol] 229 10*3/uL Normal 150-450 [facility] Comment on above: Performed By: #### L 501.6710, L100.0100, L101.9900 ####[facility] [address] [place], [address] RBC (Bld) [#/Vol] 4.08 10*6/uL Low 4.2-5.4 [facility] Comment on above: Performed By: #### L 501.6710, L100.0100, L101.9900 ####[facility] [address] [place], [address] RDW SD 46.1 fl High 35.1-43.9 [facility] Comment on above: Performed By: #### L 501.6710, L100.0100, L101.9900 ####[facility] [address] [place], [address] WBC (Bld) [#/Vol] 7.5 10*3/uL Normal 4.4-11.0 [facility] Comment on above: Performed By: #### L 501.6710, L100.0100, L101.9900 ####[facility] [address] [place], [address] CRPon 10-17-2024 C-REACTIVE PROT 13.10 mg/L High 0.0-3.0 [facility] Comment on above: Performed By: #### L 501.6710, L100.0100, L101.9900 ####[facility] [address] [place], [address] Eosinophil percentageOrdered By: Sheila Ray on 10-17-2024 Eosinophils/100 WBC (Bld) 1.3 % 0-5 [facility] Erythrocyte Sed Rateon 10-17 SED RATE 15 mm/hr Normal 0-30 [facility] Comment on above: Performed By: #### L 501.6710, L100.0100, L101.9900 ####[facility] [address] [place], [address] Erythrocyte distribution wid th ratioOrdered By: Sheila Ray on 10-17-2024 Erythrocyte distribution width (RBC) [Ratio] 13.1 % 11.6-14.6 [facility] Erythrocyte distribution wid th standard deviationOrdered By: Sheila Ray on 10-17-2024 Erythrocyte distribution width (RBC) [Ratio] 46.1 fl High 35.1-43.9 [facility] Erythrocyte sedimentation ra teOrdered By: Sheila Ray on 10-17-2024 ESR (Bld) [Velocity] 15 mm/h 0-30 [facility] Gastroenterology Visit Repor ton 10-17-2024 Gastroenterology Visit Report [facility] [address] [place] [address] OFFICE VISIT Date of Service: 10/17/24 MR#: [id number] Acct: [id number] Name: NGOC KAUFFMAN Rep #: [id number] : 1980 Provider: LYNN Zarate Age/Sex: 44/F Location: [facility] Status: Signed Intake Vital Signs 10/14/24 [...] Reports prior hx of colonoscopy in 2021. [facility] Medical History (Updated 10/17/24 @ 07:38 by LYNN Zarate) Wears contact lenses Wears glasses History [...] Chief Complaint: bleeding with bowel movement Details: NGOC KAUFFMAN, is a 44 F who presents to the office today for establishment with [facility]. [facility] ED 10.14.24 with abdominal pain and [...] and Positive (more content not included)... Normal [facility] Hematocrit Auto (Bld) [Volum e fraction]Ordered By: Sheila Ray on 10-17-2024 Hematocrit (Bld) [Volume fraction] 39.0 % 37-47 [facility] Hemoglobin measurementOrdere d By: Sheila Ray on 10-17-2024 Hemoglobin (Bld) [Mass/Vol] 12.8 g/dL 12.0-15.0 [facility] Immature granulocytes/100 WB C Auto (Bld)Ordered By: Sheila Ray on 10-17-2024 Immature granulocytes/100 WBC (Bld) 0.300 % 0.0-0.9 [facility] Comment on above: IG% - Immature Granu locytes (promyelocytes, myelocytes and metamyelocytes) > 1% indicates that a LEFT SHIFT is Present. MCV (mean corpuscular volume ) determinationOrdered By: Sheila Ray on 10-17-2024 MCV (RBC) [Entitic vol] 95.6 fL 81-99 [facility] Mean corpuscular hemoglobin (MCH) determinationOrdered By: Sheila Ray on 10-17-2024 MCH (RBC) [Entitic mass] 31.4 pg 27.0-32.0 [facility] Mean corpuscular hemoglobin concentration (MCHC) determinationOrdered By: Sheila Ray on 10-17-2024 MCHC (RBC) [Mass/Vol] 32.8 g/dL 32-36 [facility] Mean platelet volume determi nationOrdered By: Sheila Ray on 10-17-2024 Platelet mean volume (Bld) [Entitic vol] 10.4 fL 6.2-12.0 [facility] Monocyte percentageOrdered B y: Sheila Ray on 10-17-2024 Monocytes/100 WBC (Bld) 7.3 % 0-10 [facility] Neutrophil percentageOrdered By: Sheila Ray on 10-17-2024 Neutrophils/100 WBC (Bld) 58.9 % 47-70 [facility] Nucleated red blood cell per centageOrdered By: Sheila Ray on 10-17-2024 Nucleated RBC/100 WBC (Bld) [Ratio] 0 % 0-5 [facility] Platelet countOrdered By: Gissell Ray on 10-17-2024 Platelets (Bld) [#/Vol] 229 10*3/uL 150-450 [facility] RBC Auto (Bld) [#/Vol]Ordere d By: Sheila Ray on 10-17-2024 RBC (Bld) [#/Vol] 4.08 10*6/uL Low 4.2-5.4 [facility] Serum or plasma C reactive p rotein measurement (mass/volume)Ordered By: Sheila Ray on 10-17-2024 CRP [Mass/Vol] 13.10 mg/L High 0.0-3.0 [facility] White blood cell (WBC) count Ordered By: Sheila Ray on 10-17-2024 WBC (Bld) [#/Vol] 7.5 10*3/uL 4.4-11.0 [facility] Abdomen/Pelvis W IV Cont ONL Yon 10-14-2024 Abdomen/Pelvis W IV Cont ONLY [facility] Imaging Services [address] [place] [address] Abdomen/Pelvis W IV Cont ONLY MR#: [id number] Acct: [id number] Name: NGOC KAUFFMAN Rep #: [id number] : 1980 F 44 From: Larissa Avila nd, MD PCP: Dr. Coral Martinez MD Status: REG ER Study: Abdomen/Pelvis W IV Cont ONLY Date of Exam: Exam# [id number] Ordering Dr: Sam Combs DO PROCEDURE: ABDOMEN/PELVIS [...] abscess, ascites or free air. Reading Location: [facility] CC: Dr. Coral Martinez MD; Dr. Sam Combs DO [place]: Signed Normal [facility] Absolute lymphocyte countOrd ered By: Sam Combs on 10-14-2024 Lymphocytes Auto (Unsp spec) [#/Vol] 0.99 10*3/uL 0.83-4.51 [facility] Absolute neutrophil countOrd ered By: Sam Combs on 10-14-2024 Neutrophils (Bld) [#/Vol] 10.9 10*3/uL High 2.0-7.7 [facility] Anion gap in Serum or Plasma Ordered By: Sam Combs on 10-14-2024 Anion gap [Moles/Vol] 11 mmol/L 5-15 [facility] Automated lymphocyte count a s percentage of total leukocytesOrdered By: Sam Combs on 10-14-2024 Lymphocytes/100 WBC Auto (Unsp spec) 7.8 % Low 19-41 [facility] BUN/creatinine ratioOrdered By: Sam Combs on 10-14-2024 Urea nitrogen/Creatinine [Mass ratio] 5.5 mg/mg Low 10-20 [facility] Basophil percentageOrdered B y: Sam Combs on 10-14-2024 Basophils/100 WBC (Bld) 0.3 % 0-1 [facility] Bilirubin Test strip Ql (U)O rdered By: Sam Combs on 10-14-2024 Bilirubin Ql (U) 1 mg/dL High Negative [facility] Comment on above: COLOR OF URINE MAY A FFECT DIPSTICK RESULTS. Bilirubin, totalOrdered By: Sam Combs on 10-14-2024 Bilirubin [Mass/Vol] 0.47 mg/dL 0.00-1.30 [facility] CBC W/Diff, Automatedon Absolute Lymph 0.99 X10 3/uL Normal 0.83-4.51 [facility] Comment on above: Performed By: #### L 500.4050, L501.2450, L100.0100 #### [facility] [address] [place], [address] Absolute Neut 10.9 X10 3/uL High 2.0-7.7 [facility] Comment on above: Performed By: #### L 500.4050, L501.2450, L100.0100 #### [facility] [address] [place], [address] Basophils/100 WBC (Bld) 0.3 % Normal 0-1 [facility] Comment on above: Performed By: #### L 500.4050, L501.2450, L100.0100 #### [facility] [address] [place], [address] Eosinophils/100 WBC (Bld) 0.2 % Normal 0-5 [facility] Comment on above: Performed By: #### L 500.4050, L501.2450, L100.0100 #### [facility] [address] [place], [address] Erythrocyte distribution width (RBC) [Ratio] 13.2 % Normal 11.6-14.6 [facility] Comment on above: Performed By: #### L 500.4050, L501.2450, L100.0100 #### [facility] [address] [place], [address] Hematocrit (Bld) [Volume fraction] 42.6 % Normal 37-47 [facility] Comment on above: Performed By: #### L 500.4050, L501.2450, L100.0100 #### [facility] [address] [place], [address] Hemoglobin (Bld) [Mass/Vol] 14.2 g/dL Normal 12.0-15.0 [facility] Comment on above: Performed By: #### L 500.4050, L501.2450, L100.0100 #### [facility] [address] [place], [address] IG% 0.500 Normal 0.0-0.9 [facility] Comment on above: Result Comment: IG% - Immature Granulocytes (promyelocytes, myelocytes and metamyelocytes) > 1% indicates that a LEFT SHIFT is Present. Performed By: #### L 500.4050, L501.2450, L100.0100 #### [facility] [address] [place], [address] Lymphocytes/100 WBC (Bld) 7.8 % Low 19-41 [facility] Comment on above: Performed By: #### L 500.4050, L501.2450, L100.0100 #### [facility] [address] [place], [address] MCH (RBC) [Entitic mass] 31.5 pg Normal 27.0-32.0 [facility] Comment on above: Performed By: #### L 500.4050, L501.2450, L100.0100 #### [facility] [address] [place], [address] MCHC (RBC) [Mass/Vol] 33.3 g/dL Normal 32-36 [facility] Comment on above: Performed By: #### L 500.4050, L501.2450, L100.0100 #### [facility] [address] [place], [address] MCV (RBC) [Entitic vol] 94.5 fL Normal 81-99 [facility] Comment on above: Performed By: #### L 500.4050, L501.2450, L100.0100 #### [facility] [address] [place], [address] Monocytes/100 WBC (Bld) 6.3 % Normal 0-10 [facility] Comment on above: Performed By: #### L 500.4050, L501.2450, L100.0100 #### [facility] [address] [place], [address] Neutrophils/100 WBC (Bld) 84.9 % High 47-70 [facility] Comment on above: Performed By: #### L 500.4050, L501.2450, L100.0100 #### [facility] [address] [place], [address] Nucleated RBC (Bld) [#/Vol] 0 10*3/uL Normal 0-5 [facility] Comment on above: Performed By: #### L 500.4050, L501.2450, L100.0100 #### [facility] [address] [place], [address] Platelet mean volume (Bld) [Entitic vol] 10.1 fL Normal 6.2-12.0 [facility] Comment on above: Performed By: #### L 500.4050, L501.2450, L100.0100 #### [facility] [address] [place], [address] Platelets (Bld) [#/Vol] 246 10*3/uL Normal 150-450 [facility] Comment on above: Performed By: #### L 500.4050, L501.2450, L100.0100 #### [facility] [address] [place], [address] RBC (Bld) [#/Vol] 4.51 10*6/uL Normal 4.2-5.4 [facility] Comment on above: Performed By: #### L 500.4050, L501.2450, L100.0100 #### [facility] [address] [place], [address] RDW SD 45.7 fl High 35.1-43.9 [facility] Comment on above: Performed By: #### L 500.4050, L501.2450, L100.0100 #### [facility] [address] [place], [address] WBC (Bld) [#/Vol] 12.8 10*3/uL High 4.4-11.0 [facility] Comment on above: Performed By: #### L 500.4050, L501.2450, L100.0100 #### [facility] [address] [place], [address] CDIFF (PCR)on 10-14-2024 CDIFF Pending [phone] NAP1-B1 Presumptive Negative *for epidemiolologic???use C. Diff PCR Negative- No toxigenic C. Diff Detected Normal [facility] Comment on above: Performed By: #### M 100.637, L400.0001, L400.7600, M100.6796 ####[facility] [id number] [place], [address] Carbon dioxide, total [Moles /volume] in Central venous bloodOrdered By: Sam Combs on 10-14-2024 CO2 [Moles/Vol] 24.5 mmol/L 21.0-32.0 [facility] Chloride assayOrdered By: Billy Combs on 10-14-2024 Chloride [Moles/Vol] 104 mmol/L 98-108 [facility] Clostridium difficile detect ion by polymerase chain reactionOrdered By: Sam Combs on 10-14-2024 C. difficile DNA NATHAN+probe Ql (Unsp spec) [facility] Comprehensive Metabolic Prof ilon 10-14-2024 Albumin [Mass/Vol] 4.6 g/dL Normal 3.5-5.0 [facility] Comment on above: Performed By: #### L 500.4050, L501.2450, L100.0100 #### [facility] [address] [place], [address] Albumin/Globulin [Mass ratio] 1.5 {ratio} Normal 0.9-2.4 [facility] Comment on above: Performed By: #### L 500.4050, L501.2450, L100.0100 #### [facility] [address] [place], [address] ALK PHOS 64 U/L Normal 35-104 [facility] Comment on above: Performed By: #### L 500.4050, L501.2450, L100.0100 #### [facility] [address] [place], [address] ALT [Catalytic activity/Vol] 30 U/L Normal <=34 [facility] Comment on above: Performed By: #### L 500.4050, L501.2450, L100.0100 #### [facility] [address] [place], [address] AST [Catalytic activity/Vol] 24 U/L Normal <=31 [facility] Comment on above: Performed By: #### L 500.4050, L501.2450, L100.0100 #### [facility] [address] [place], [address] Bilirubin [Mass/Vol] 0.47 mg/dL Normal 0.00-1.30 [facility] Comment on above: Performed By: #### L 500.4050, L501.2450, L100.0100 #### [facility] [address] [place], [address] BUN/CRE 5.5 RATIO Low 10-20 [facility] Comment on above: Performed By: #### L 500.4050, L501.2450, L100.0100 #### [facility] [address] [place], [address] Calcium [Mass/Vol] 9.6 mg/dL Normal 7.6-11.0 [facility] Comment on above: Performed By: #### L 500.4050, L501.2450, L100.0100 #### [facility] [address] [place], [address] Chloride [Moles/Vol] 104 mmol/L Normal 98-108 [facility] Comment on above: Performed By: #### L 500.4050, L501.2450, L100.0100 #### [facility] [address] [place], [address] CO2 [Moles/Vol] 24.5 mmol/L Normal 21.0-32.0 [facility] Comment on above: Performed By: #### L 500.4050, L501.2450, L100.0100 #### [facility] [address] [place], [address] Creatinine [Mass/Vol] 0.82 mg/dL Normal 0.70-1.20 [facility] Comment on above: Performed By: #### L 500.4050, L501.2450, L100.0100 #### [facility] [address] [place], [address] ECRCL 93.68 ml/min Normal 50-250 [facility] Comment on above: Performed By: #### L 500.4050, L501.2450, L100.0100 #### [facility] [address] [place], [address] GAP 11 Normal 5-15 [facility] Comment on above: Performed By: #### L 500.4050, L501.2450, L100.0100 #### [facility] [address] [place], [address] GFR/1.73 sq M.predicted among non-blacks MDRD (S/P/Bld) [Vol rate/Area] 91 mL/min/{1.73_m2} Normal >60 [facility] Comment on above: Result Comment: mL/m in/1.73m2 CKD-EPI Creatinine Equation (2020) Performed By: #### L 500.4050, L501.2450, L100.0100 #### [facility] [address] [place], [address] Globulin (S) [Mass/Vol] 3.0 g/dL Normal 2.2-4.2 [facility] Comment on above: Performed By: #### L 500.4050, L501.2450, L100.0100 #### [facility] [address] [place], [address] Glucose [Mass/Vol] 97 mg/dL Normal 70-99 [facility] Comment on above: Performed By: #### L 500.4050, L501.2450, L100.0100 #### [facility] [address] [place], [address] Potassium [Moles/Vol] 3.6 mmol/L Normal 3.3-5.1 [facility] Comment on above: Performed By: #### L 500.4050, L501.2450, L100.0100 #### [facility] [address] [place], [address] Sodium [Moles/Vol] 139 mmol/L Normal 133-145 [facility] Comment on above: Performed By: #### L 500.4050, L501.2450, L100.0100 #### [facility] [address] [place], [address] T PROT 7.5 g/dL Normal 5.9-8.4 [facility] Comment on above: Performed By: #### L 500.4050, L501.2450, L100.0100 #### [facility] [address] [place], [address] Urea nitrogen [Mass/Vol] 5 mg/dL Normal 4-19 [facility] Comment on above: Performed By: #### L 500.4050, L501.2450, L100.0100 #### [facility] [address] [place], [address] ENTERIC PATHOGEN PANEL STOOL on 10-14-2024 EP [...] VIBRIO Not Detected Yersinia Not Detected Normal [facility] Comment on above: Performed By: #### M 100.637, L400.0001, L400.7600, M100.6796 ####[facility] [id number] [place], [address] Emergency Department Summary on 10-14-2024 Emergency Department Summary [facility] Medical Records Department [address] [facility] [place] [address] Emergency Department Summary 10/14/24 MR#: [id number] Acct: [id number] Name: NGOC KAUFFMAN Rep #: [id number] : 1980 44 From: Sam Combs DO PCP: Dr. Coral Martinez MD Status:REG ER Location: ED HPI History of Present Illness Chief Complaint: GI Bleed PFSH PFS Medical History Wears contact lenses Wears glasses [...] imaging studie (more content not included)... Normal [facility] Eosinophil percentageOrdered By: Sam Combs on 10-14-2024 Eosinophils/100 WBC (Bld) 0.2 % 0-5 [facility] Erythrocyte distribution wid th ratioOrdered By: Sam Combs on 10-14-2024 Erythrocyte distribution width (RBC) [Ratio] 13.2 % 11.6-14.6 [facility] Erythrocyte distribution wid th standard deviationOrdered By: Sam Combs on 10-14-2024 Erythrocyte distribution width (RBC) [Ratio] 45.7 fl High 35.1-43.9 [facility] Glomerular filtration rate ( GFR) estimation/1.73 sq m using serum, plasma, or whole bOrdered By: Sam Combs on 10-14-2024 GFR/1.73 sq M.predicted among non-blacks MDRD (S/P/Bld) [Vol rate/Area] 91 mL/min/{1.73_m2} >60 [facility] Comment on above: mL/min/1.73m2 CKD-EP I Creatinine Equation (2020) Hematocrit Auto (Bld) [Volum e fraction]Ordered By: Sam Combs on 10-14-2024 Hematocrit (Bld) [Volume fraction] 42.6 % 37-47 [facility] Hemoglobin measurementOrdere d By: Sam Combs on 10-14-2024 Hemoglobin (Bld) [Mass/Vol] 14.2 g/dL 12.0-15.0 [facility] Immature granulocytes/100 WB C Auto (Bld)Ordered By: Sam Combs on 10-14-2024 Immature granulocytes/100 WBC (Bld) 0.500 % 0.0-0.9 [facility] Comment on above: IG% - Immature Granu locytes (promyelocytes, myelocytes and metamyelocytes) > 1% indicates that a LEFT SHIFT is Present. Ketones Test strip Ql (U)Ord ered By: Sam Combs on 10-14-2024 Ketones Ql (U) 5 mg/dl High Negative [facility] - Chemistry and C hemistry - challengeOrdered By: Sam Combs on 10-14-2024 AST [Catalytic activity/Vol] 24 U/L <32 [facility] Lipaseon 10-14-2024 Lipase [Catalytic activity/Vol] 27 U/L Normal 13-75 [facility] Comment on above: Result Comment: Manas ro note: LIPASE revised reference range effective 22. New Lipase methodology. Expected to produce lower values than the previous assay method. NEW Reference Range: 13 - 75 U/L Performed By: #### L 500.4050, L501.2450, L100.0100 #### [facility] [address] [place], [address] Lipase measurementOrdered By : Sam Combs on 10-14-2024 Lipase [Catalytic activity/Vol] 27 U/L 13-75 [facility] Comment on above: Please note:LIPASE r evised reference range effective 22. New Lipase methodology. Expected to produce lower values than the previous assay method. NEW Reference Range: 13 - 75 U/L MCV (mean corpuscular volume ) determinationOrdered By: Sam Combs on 10-14-2024 MCV (RBC) [Entitic vol] 94.5 fL 81-99 [facility] Mean corpuscular hemoglobin (MCH) determinationOrdered By: Sam Combs on 10-14-2024 MCH (RBC) [Entitic mass] 31.5 pg 27.0-32.0 [facility] Mean corpuscular hemoglobin concentration (MCHC) determinationOrdered By: Sam Combs on 10-14-2024 MCHC (RBC) [Mass/Vol] 33.3 g/dL 32-36 [facility] Mean platelet volume determi nationOrdered By: Sam Combs on 10-14-2024 Platelet mean volume (Bld) [Entitic vol] 10.1 fL 6.2-12.0 [facility] Microscopic analysis of urin e for red blood cells (RBC)Ordered By: Sam Combs on 10-14-2024 Microscopic analysis of urine for red blood cells (RBC) 0 SEEN /hpf 0-5 [facility] Monocyte percentageOrdered B y: Sam Combs on 10-14-2024 Monocytes/100 WBC (Bld) 6.3 % 0-10 [facility] Mucus LM Ql (Urine sed)Order ed By: Sam Combs on 10-14-2024 Mucus Ql (Urine sed) 0 SEEN /hpf [facility] Neutrophil percentageOrdered By: Sam Combs on 10-14-2024 Neutrophils/100 WBC (Bld) 84.9 % High 47-70 [facility] Nitrite Test strip Ql (U)Ord ered By: Sam Combs on 10-14-2024 Nitrite Ql (U) Negative Negative [facility] Nucleated red blood cell per centageOrdered By: Sam Combs on 10-14-2024 Nucleated RBC/100 WBC (Bld) [Ratio] 0 % 0-5 [facility] Platelet countOrdered By: Billy Combs on 10-14-2024 Platelets (Bld) [#/Vol] 246 10*3/uL 150-450 [facility] Potassium measurement (mass/ volume)Ordered By: Sam Combs on 10-14-2024 Potassium (Unsp spec) [Mass/Vol] 3.6 mmol/L 3.3-5.1 [facility] ,Urineon 10-14-2024 Beta HCG ( test) Ql (U) Negative Normal [facility] Comment on above: Order Comment: COLOR OF URINE MAY AFFECT DIPSTICK RESULTS. Result Comment: Very dilute urine specimens, as indicated by a low specific gravity, may not contain entry level marketing representative levels of hCG. If is still suspected, a first morning urine specimen should be collected 48 hours later and tested. Performed By: #### M 100.637, L400.0001, L400.7600, M100.6796 ####[facility] [id number] [place], [address] Protein Test strip Ql (U)Ord ered By: Sam Combs on 10-14-2024 Protein Ql (U) 30 mg/dl High Negative [facility] RBC Auto (Bld) [#/Vol]Ordere d By: Sam Combs on 10-14-2024 RBC (Bld) [#/Vol] 4.51 10*6/uL 4.2-5.4 [facility] Serum creatinine measurement (mass/volume)Ordered By: Sam Combs on 10-14-2024 Creatinine [Mass/Vol] 0.82 mg/dL 0.70-1.20 [facility] Serum globulin measurementOr dered By: Sam Combs on 10-14-2024 Globulin (S) [Mass/Vol] 3.0 g/dL 2.2-4.2 [facility] Serum glucose measurement (m ass/volume)Ordered By: Sam Combs on 10-14-2024 Glucose [Mass/Vol] 97 mg/dL 70-99 [facility] Serum or plasma alanine jordan otransferase (ALT) measurementOrdered By: Sam Combs on 10-14-2024 ALT [Catalytic activity/Vol] 30 U/L <35 [facility] Serum or plasma albumin chey urement (mass/volume)Ordered By: Sam Combs on 10-14-2024 Albumin [Mass/Vol] 4.6 g/dL 3.5-5.0 [facility] Serum or plasma albumin/glob ulin mass ratioOrdered By: Sam Combs on 10-14-2024 Albumin/Globulin [Mass ratio] 1.5 {ratio} 0.9-2.4 [facility] Serum or plasma alkaline yony sphatase measurementOrdered By: Sam Combs on 10-14-2024 ALP [Catalytic activity/Vol] 64 U/L 35-104 [facility] Serum or plasma calcium chey urement (mass/volume)Ordered By: Sam Combs on 10-14-2024 Calcium [Mass/Vol] 9.6 mg/dL 7.6-11.0 [facility] Serum or plasma urea nitroge n measurement (mass/volume)Ordered By: Sam Combs on 10-14-2024 Urea nitrogen [Mass/Vol] 5 mg/dL 4-19 [facility] Sodium levelOrdered By: David Combs on 10-14-2024 Sodium [Moles/Vol] 139 mmol/L 133-145 [facility] Squamous epithelial cells de tection in urine sediment by light microscopyOrdered By: Sam Combs on 10-14-2024 Epithelial cells.squamous LM Ql (Urine sed) 0-5 SEEN /hpf 5-10 [facility] Total proteinOrdered By: Tana Combs on 10-14-2024 Protein [Mass/Vol] 7.5 g/dL 5.9-8.4 [facility] Transitional cells detection in urine sediment by light microscopyOrdered By: Sam Combs on 10-14-2024 Transitional cells LM Ql (Urine sed) 0-5 SEEN /hpf 0-5 [facility] Urinalysis, Completeon 10-14 BACTERIA 4+ /hpf Normal None Seen [facility] Comment on above: Order Comment: COLOR OF URINE MAY AFFECT DIPSTICK RESULTS.CLEAN CATCH Performed By: #### M 100.637, L400.0001, L400.7600, M100.6796 ####[facility] [id number] [place], [address] CAST,FINE GRAN 0-5 SEEN Normal 0-5 [facility] Comment on above: Order Comment: COLOR OF URINE MAY AFFECT DIPSTICK RESULTS.CLEAN CATCH Performed By: #### M 100.637, L400.0001, L400.7600, M100.6796 ####[facility] [id number] [place], [address] EPI,SQUAMOUS 0-5 SEEN Normal 5-10 [facility] Comment on above: Order Comment: COLOR OF URINE MAY AFFECT DIPSTICK RESULTS.CLEAN CATCH Performed By: #### M 100.637, L400.0001, L400.7600, M100.6796 ####[facility] [id number] [place], [address] EPI,TRANSITION 0-5 SEEN Normal 0-5 [facility] Comment on above: Order Comment: COLOR OF URINE MAY AFFECT DIPSTICK RESULTS.CLEAN CATCH Performed By: #### M 100.637, L400.0001, L400.7600, M100.6796 ####[facility] [address] [place], [address] WBC 0-5 SEEN Normal 0-5 [facility] Comment on above: Order Comment: COLOR OF URINE MAY AFFECT DIPSTICK RESULTS.CLEAN CATCH Performed By: #### M 100.637, L400.0001, L400.7600, M100.6796 ####[facility] [id number] [place], [address] Mucus Ql (Urine sed) 0 SEEN Normal [facility] Comment on above: Order Comment: COLOR OF URINE MAY AFFECT DIPSTICK RESULTS.CLEAN CATCH Performed By: #### M 100.637, L400.0001, L400.7600, M100.6796 ####[facility] [address] [place], [address] RBC 0 SEEN Normal 0-5 [facility] Comment on above: Order Comment: COLOR OF URINE MAY AFFECT DIPSTICK RESULTS.CLEAN CATCH Performed By: #### M 100.637, L400.0001, L400.7600, M100.6796 ####[facility] [address] [place], [address] Urine clarityOrdered By: Tana Combs on 10-14-2024 Clarity (U) Cloudy Clear [facility] Urine color determinationOrd ered By: Sam Combs on 10-14-2024 Color (U) Genny Yellow [facility] Urine glucose detectionOrder ed By: Sam Combs on 10-14-2024 Glucose Ql (U) Normal mg/dl Normal [facility] Urine leukocyte esterase det ection by dipstickOrdered By: Sam Combs on 10-14-2024 Leukocyte esterase Test strip Ql (U) 25 /ul High Negative [facility] Urine pHOrdered By: Sam valentine on 10-14-2024 pH (U) 5.0 [pH] 5.0 - 8.0 [facility] Urine testOrdered By: Sam Combs on 10-14-2024 HCG ( test) Ql (U) Negative [facility] Comment on above: Very dilute urine sp ecimens, as indicated by a low specificgravity, may not contain entry level marketing representative levels of hCG. If is still suspected, a first morning urinespecimen should be collected 48 hours later and tested. Urine sediment bacteria coun t by microscopy (number/high power field)Ordered By: Sam Combs on 10-14-2024 Bacteria LM.HPF (Urine sed) [#/Area] 4 /[HPF] None Seen [facility] Urine sediment fine granular cast count by microscopy (number/low power field)Ordered By: Sam Combs on 10-14-2024 Fine Granular Casts LM.LPF (Urine sed) [#/Area] 0-5 SEEN /lpf 0-5 [facility] Urine specific gravity measu rementOrdered By: Sam Combs on 10-14-2024 Specific gravity (U) [Rel density] 1.030 1.002-1.030 [facility] Urine urobilinogen measureme ntOrdered By: Sam Combs on 10-14-2024 Urobilinogen Ql (U) Normal mg/dl Normal [facility] White blood cell (WBC) count Ordered By: Sam Combs on 10-14-2024 WBC (Bld) [#/Vol] 12.8 10*3/uL High 4.4-11.0 [facility] White blood cell countOrdere d By: Sam Combs on 10-14-2024 White blood cell count 0-5 SEEN /hpf 0-5 [facility] Abdomen Limitedon 09-26-2024 Abdomen Limited [facility] Services [address] [place] [address] Abdomen Limited MR#: [id number] Acct: [id number] Name: NGOC KAUFFMAN Rep #: [id number] : 1980 F 44 From: Skip branch MD PCP: Dr. Coral Martinez MD Status: [facility] CLI Study: Abdomen Limited Date of Exam: 09/26/24 Exam# [id number] Ordering Dr: Clarice Liriano MD PROCEDURE: ABDOMEN LIMITED 09/26/2024 REASON [...] right lobe of the liver. Reading Location: [place] [address] CC: Dr. Coral Martinez MD; Dr. Clarice Liriano MD [place]: Signed Normal [facility] Absolute lymphocyte countOrd ered By: Clarice Liriano on 09-13-2024 Lymphocytes Auto (Unsp spec) [#/Vol] 2.20 10*3/uL 0.83-4.51 [facility] Absolute neutrophil countOrd ered By: Claricehanane Liriano on 09-13-2024 Neutrophils (Bld) [#/Vol] 3.9 10*3/uL 2.0-7.7 [facility] Anion gap in Serum or Plasma Ordered By: Clarice Liriano on 09-13-2024 Anion gap [Moles/Vol] 12 mmol/L 5-15 [facility] Automated lymphocyte count a s percentage of total leukocytesOrdered By: Clarice Liriano on 09-13-2024 Lymphocytes/100 WBC Auto (Unsp spec) 31.9 % 19-41 [facility] BUN/creatinine ratioOrdered By: Clarice Liriano on 09-13-2024 Urea nitrogen/Creatinine [Mass ratio] 7.7 mg/mg Low 10-20 [facility] Basophil percentageOrdered B y: Clarice Liriano on 09-13-2024 Basophils/100 WBC (Bld) 0.6 % 0-1 [facility] Bilirubin, totalOrdered By: Clarice Liriano on 09-13-2024 Bilirubin [Mass/Vol] 0.31 mg/dL 0.00-1.30 [facility] CBC W/Diff, Automatedon Absolute Lymph 2.20 X10 3/uL Normal 0.83-4.51 [facility] Comment on above: Performed By: #### L 100.0100, L500.4050 #### [facility] [address] [place] [address]. [place], [place], [id number] Absolute Neut 3.9 X10 3/uL Normal 2.0-7.7 [facility] Comment on above: Performed By: #### L 100.0100, L500.4050 #### [facility] [address] [place], [address] Basophils/100 WBC (Bld) 0.6 % Normal 0-1 [facility] Comment on above: Performed By: #### L 100.0100, L500.4050 #### [facility] [address] [place], [address] Eosinophils/100 WBC (Bld) 1.2 % Normal 0-5 [facility] Comment on above: Performed By: #### L 100.0100, L500.4050 #### [facility] [address] [place], [address] Erythrocyte distribution width (RBC) [Ratio] 13.1 % Normal 11.6-14.6 [facility] Comment on above: Performed By: #### L 100.0100, L500.4050 #### [facility] [address] [place], [address] Hematocrit (Bld) [Volume fraction] 41.5 % Normal 37-47 [facility] Comment on above: Performed By: #### L 100.0100, L500.4050 #### [facility] [address] [place], [address] Hemoglobin (Bld) [Mass/Vol] 13.8 g/dL Normal 12.0-15.0 [facility] Comment on above: Performed By: #### L 100.0100, L500.4050 #### [facility] [address] [place], [address] IG% 0.100 Normal 0.0-0.9 [facility] Comment on above: Result Comment: IG% - Immature Granulocytes (promyelocytes, myelocytes and metamyelocytes) > 1% indicates that a LEFT SHIFT is Present. Performed By: #### L 100.0100, L500.4050 #### [facility] [address] [place], [address] Lymphocytes/100 WBC (Bld) 31.9 % Normal 19-41 [facility] Comment on above: Performed By: #### L 100.0100, L500.4050 #### [facility] [address] [place], [address] MCH (RBC) [Entitic mass] 31.4 pg Normal 27.0-32.0 [facility] Comment on above: Performed By: #### L 100.0100, L500.4050 #### [facility] [address] [place], [address] MCHC (RBC) [Mass/Vol] 33.3 g/dL Normal 32-36 [facility] Comment on above: Performed By: #### L 100.0100, L500.4050 #### [facility] [address] [place], [address] MCV (RBC) [Entitic vol] 94.5 fL Normal 81-99 [facility] Comment on above: Performed By: #### L 100.0100, L500.4050 #### [facility] [address] [place], [address] Monocytes/100 WBC (Bld) 10.0 % Normal 0-10 [facility] Comment on above: Performed By: #### L 100.0100, L500.4050 #### [facility] [address] [place], [address] Neutrophils/100 WBC (Bld) 56.2 % Normal 47-70 [facility] Comment on above: Performed By: #### L 100.0100, L500.4050 #### [facility] [address] [place], [address] Nucleated RBC (Bld) [#/Vol] 0 10*3/uL Normal 0-5 [facility] Comment on above: Performed By: #### L 100.0100, L500.4050 #### [facility] [address] [place], [address] Platelet mean volume (Bld) [Entitic vol] 10.6 fL Normal 6.2-12.0 [facility] Comment on above: Performed By: #### L 100.0100, L500.4050 #### [facility] [address] [place], [address] Platelets (Bld) [#/Vol] 243 10*3/uL Normal 150-450 [facility] Comment on above: Performed By: #### L 100.0100, L500.4050 #### [facility] [address] [place], [address] RBC (Bld) [#/Vol] 4.39 10*6/uL Normal 4.2-5.4 [facility] Comment on above: Performed By: #### L 100.0100, L500.4050 #### [facility] [address] [place], [address] RDW SD 45.3 fl High 35.1-43.9 [facility] Comment on above: Performed By: #### L 100.0100, L500.4050 #### [facility] [address] [place], [address] WBC (Bld) [#/Vol] 6.9 10*3/uL Normal 4.4-11.0 [facility] Comment on above: Performed By: #### L 100.0100, L500.4050 #### [facility] [address] [place], [address] Carbon dioxide, total [Moles /volume] in Central venous bloodOrdered By: Clarice Liriano on 09-13-2024 CO2 [Moles/Vol] 22.0 mmol/L 21.0-32.0 [facility] Chloride assayOrdered By: Lynn Liriano on 09-13-2024 Chloride [Moles/Vol] 102 mmol/L 98-108 [facility] Comprehensive Metabolic Prof ilon 09-13-2024 Albumin [Mass/Vol] 4.3 g/dL Normal 3.5-5.0 [facility] Comment on above: Performed By: #### L 100.0100, L500.4050 #### [facility] [address] [place], [address] Albumin/Globulin [Mass ratio] 1.4 {ratio} Normal 0.9-2.4 [facility] Comment on above: Performed By: #### L 100.0100, L500.4050 #### [facility] [address] [place], [address] ALK PHOS 58 U/L Normal 35-104 [facility] Comment on above: Performed By: #### L 100.0100, L500.4050 #### [facility] [address] [place], [address] ALT [Catalytic activity/Vol] 38 U/L High <=34 [facility] Comment on above: Performed By: #### L 100.0100, L500.4050 #### [facility] [address] [place], [address] AST [Catalytic activity/Vol] 23 U/L Normal <=31 [facility] Comment on above: Performed By: #### L 100.0100, L500.4050 #### [facility] [address] [place], [address] Bilirubin [Mass/Vol] 0.31 mg/dL Normal 0.00-1.30 [facility] Comment on above: Performed By: #### L 100.0100, L500.4050 #### [facility] [address] [place], [address] BUN/CRE 7.7 RATIO Low 10-20 [facility] Comment on above: Performed By: #### L 100.0100, L500.4050 #### [facility] [address] [place], [address] Calcium [Mass/Vol] 9.6 mg/dL Normal 7.6-11.0 [facility] Comment on above: Performed By: #### L 100.0100, L500.4050 #### [facility] [address] [place], [address] Chloride [Moles/Vol] 102 mmol/L Normal 98-108 [facility] Comment on above: Performed By: #### L 100.0100, L500.4050 #### [facility] [address] [place], [address] CO2 [Moles/Vol] 22.0 mmol/L Normal 21.0-32.0 [facility] Comment on above: Performed By: #### L 100.0100, L500.4050 #### [facility] [address] [place], [address] Creatinine [Mass/Vol] 0.82 mg/dL Normal 0.70-1.20 [facility] Comment on above: Performed By: #### L 100.0100, L500.4050 #### [facility] [address] [place], [address] GAP 12 Normal 5-15 [facility] Comment on above: Performed By: #### L 100.0100, L500.4050 #### [facility] [address] [place], [address] GFR/1.73 sq M.predicted among non-blacks MDRD (S/P/Bld) [Vol rate/Area] 90 mL/min/{1.73_m2} Normal >60 [facility] Comment on above: Result Comment: mL/m in/1.73m2 CKD-EPI Creatinine Equation (2020) Performed By: #### L 100.0100, L500.4050 #### [facility] [address] [place], [address] Globulin (S) [Mass/Vol] 3.0 g/dL Normal 2.2-4.2 [facility] Comment on above: Performed By: #### L 100.0100, L500.4050 #### [facility] [address] [place], [address] Glucose [Mass/Vol] 103 mg/dL High 70-99 [facility] Comment on above: Performed By: #### L 100.0100, L500.4050 #### [facility] [address] [place], [address] Potassium [Moles/Vol] 4.0 mmol/L Normal 3.3-5.1 [facility] Comment on above: Performed By: #### L 100.0100, L500.4050 #### [facility] [address] [place], [address] Sodium [Moles/Vol] 136 mmol/L Normal 133-145 [facility] Comment on above: Performed By: #### L 100.0100, L500.4050 #### [facility] [address] [place], [address] T PROT 7.3 g/dL Normal 5.9-8.4 [facility] Comment on above: Performed By: #### L 100.0100, L500.4050 #### [facility] [address] [place], [address] Urea nitrogen [Mass/Vol] 6 mg/dL Normal 4-19 [facility] Comment on above: Performed By: #### L 100.0100, L500.4050 #### [facility] [address] [place], [address] Eosinophil percentageOrdered By: Clarice Liriano on 09-13-2024 Eosinophils/100 WBC (Bld) 1.2 % 0-5 [facility] Erythrocyte distribution wid th ratioOrdered By: Clarice Liriano on 09-13-2024 Erythrocyte distribution width (RBC) [Ratio] 13.1 % 11.6-14.6 [facility] Erythrocyte distribution wid th standard deviationOrdered By: Clarice Liriano on 09-13-2024 Erythrocyte distribution width (RBC) [Ratio] 45.3 fl High 35.1-43.9 [facility] Glomerular filtration rate ( GFR) estimation/1.73 sq m using serum, plasma, or whole bOrdered By: Clarice Liriano on 09-13-2024 GFR/1.73 sq M.predicted among non-blacks MDRD (S/P/Bld) [Vol rate/Area] 90 mL/min/{1.73_m2} >60 [facility] Comment on above: mL/min/1.73m2 CKD-EP I Creatinine Equation (2020) Hematocrit Auto (Bld) [Volum e fraction]Ordered By: Clarice Liriano on 09-13-2024 Hematocrit (Bld) [Volume fraction] 41.5 % 37-47 [facility] Hemoglobin measurementOrdere d By: Clarice Liriano on 09-13-2024 Hemoglobin (Bld) [Mass/Vol] 13.8 g/dL 12.0-15.0 [facility] Immature granulocytes/100 WB C Auto (Bld)Ordered By: Clarice Liriano on 09-13-2024 Immature granulocytes/100 WBC (Bld) 0.100 % 0.0-0.9 [facility] Comment on above: IG% - Immature Granu locytes (promyelocytes, myelocytes and metamyelocytes) > 1% indicates that a LEFT SHIFT is Present. Laboratory - Chemistry and C hemistry - challengeOrdered By: Clarice Liriano on 09-13-2024 AST [Catalytic activity/Vol] 23 U/L <32 [facility] MCV (mean corpuscular volume ) determinationOrdered By: Clarice Liriano on 09-13-2024 MCV (RBC) [Entitic vol] 94.5 fL 81-99 [facility] Mean corpuscular hemoglobin (MCH) determinationOrdered By: Clarice Liriano on 09-13-2024 MCH (RBC) [Entitic mass] 31.4 pg 27.0-32.0 [facility] Mean corpuscular hemoglobin concentration (MCHC) determinationOrdered By: Clarice Liriano on 09-13-2024 MCHC (RBC) [Mass/Vol] 33.3 g/dL 32-36 [facility] Mean platelet volume determi nationOrdered By: Clarice Liriano on 09-13-2024 Platelet mean volume (Bld) [Entitic vol] 10.6 fL 6.2-12.0 [facility] Monocyte percentageOrdered B y: Clarice Liriano on 09-13-2024 Monocytes/100 WBC (Bld) 10.0 % 0-10 [facility] Neutrophil percentageOrdered By: Clarice Liriano on 09-13-2024 Neutrophils/100 WBC (Bld) 56.2 % 47-70 [facility] Nucleated red blood cell per centageOrdered By: Clarice Liriano on 09-13-2024 Nucleated RBC/100 WBC (Bld) [Ratio] 0 % 0-5 [facility] Platelet countOrdered By: Lynn Liriano on 09-13-2024 Platelets (Bld) [#/Vol] 243 10*3/uL 150-450 [facility] Potassium measurement (mass/ volume)Ordered By: Clarice Liriano on 09-13-2024 Potassium (Unsp spec) [Mass/Vol] 4.0 mmol/L 3.3-5.1 [facility] RBC Auto (Bld) [#/Vol]Ordere d By: Clarice Liriano on 09-13-2024 RBC (Bld) [#/Vol] 4.39 10*6/uL 4.2-5.4 [facility] Serum creatinine measurement (mass/volume)Ordered By: Clarice Liriano on 09-13-2024 Creatinine [Mass/Vol] 0.82 mg/dL 0.70-1.20 [facility] Serum globulin measurementOr dered By: Clarice Liriano on 09-13-2024 Globulin (S) [Mass/Vol] 3.0 g/dL 2.2-4.2 [facility] Serum glucose measurement (m ass/volume)Ordered By: Clarice Liriano on 09-13-2024 Glucose [Mass/Vol] 103 mg/dL High 70-99 [facility] Serum or plasma alanine jordan otransferase (ALT) measurementOrdered By: Clarice Liriano on 09-13-2024 ALT [Catalytic activity/Vol] 38 U/L High <35 [facility] Serum or plasma albumin chey urement (mass/volume)Ordered By: Clarice Liriano on 09-13-2024 Albumin [Mass/Vol] 4.3 g/dL 3.5-5.0 [facility] Serum or plasma albumin/glob ulin mass ratioOrdered By: Clarice Liriano on 09-13-2024 Albumin/Globulin [Mass ratio] 1.4 {ratio} 0.9-2.4 [facility] Serum or plasma alkaline yony sphatase measurementOrdered By: Clarice Liriano on 09-13-2024 ALP [Catalytic activity/Vol] 58 U/L 35-104 [facility] Serum or plasma calcium chey urement (mass/volume)Ordered By: Clarice Liriano on 09-13-2024 Calcium [Mass/Vol] 9.6 mg/dL 7.6-11.0 [facility] Serum or plasma urea nitroge n measurement (mass/volume)Ordered By: Clarice Liriano on 09-13-2024 Urea nitrogen [Mass/Vol] 6 mg/dL 4-19 [facility] Sodium levelOrdered By: Elana Liriano on 09-13-2024 Sodium [Moles/Vol] 136 mmol/L 133-145 [facility] Total proteinOrdered By: Jersey Liriano on 09-13-2024 Protein [Mass/Vol] 7.3 g/dL 5.9-8.4 [facility] White blood cell (WBC) count Ordered By: Calrice Liriano on 09-13-2024 WBC (Bld) [#/Vol] 6.9 10*3/uL 4.4-11.0 [facility] Absolute lymphocyte countOrd ered By: Coral Martinez on 07-22-2024 Lymphocytes Auto (Unsp spec) [#/Vol] 1.80 10*3/uL 0.83-4.51 [facility] Absolute neutrophil countOrd ered By: Coral Martinez on 07-22-2024 Neutrophils (Bld) [#/Vol] 3.8 10*3/uL 2.0-7.7 [facility] Anion gap in Serum or Plasma Ordered By: Coral Andinoke on 07-22-2024 Anion gap [Moles/Vol] 10 mmol/L 09-21 [facility] Automated lymphocyte count a s percentage of total leukocytesOrdered By: Coral Andinoke on 07-22-2024 Lymphocytes/100 WBC Auto (Unsp spec) 28.3 % [facility] BUN/creatinine ratioOrdered By: [facility] on 07-22-2024 Urea nitrogen/Creatinine [Mass ratio] 10.6 mg/mg 10- [facility] Basophil percentageOrdered B y: Coral Andinoke on 07-22-2024 Basophils/100 WBC (Bld) 0.9 % 0- [facility] Bilirubin, totalOrdered By: Coral Andinoke on 07-22-2024 Bilirubin [Mass/Vol] 0.21 mg/dL 0.00-1.30 [facility] CBC W/Diff, Automatedon 07-08 Absolute Lymph 1.80 X10 3/uL Normal 0.83-4.51 [facility] Comment on above: Order Comment: Order Date: 07/11/24Order Info: [id number] - CBCD Performed By: #### L 100.0100, L500.4050 #### [facility] [address] [place], [place], [address] Absolute Neut 3.8 X10 3/uL Normal 2.0-7.7 [facility] Comment on above: Order Comment: Order Date: 07/11/24Order Info: [id number] - CBCD Performed By: #### L 100.0100, L500.4050 #### [facility] [address] [place], [address] Basophils/100 WBC (Bld) 0.9 % Normal 0-1 [facility] Comment on above: Order Comment: Order Date: 07/11/24Order Info: [id number] - CBCD Performed By: #### L 100.0100, L500.4050 #### [facility] [address] [place], [address] Eosinophils/100 WBC (Bld) 1.7 % Normal 0-5 [facility] Comment on above: Order Comment: Order Date: 07/11/24Order Info: [id number] - CBCD Performed By: #### L 100.0100, L500.4050 #### [facility] [address] [place], [address] Erythrocyte distribution width (RBC) [Ratio] 13.7 % Normal 11.6-14.6 [facility] Comment on above: Order Comment: Order Date: 07/11/24Order Info: [id number] - CBCD Performed By: #### L 100.0100, L500.4050 #### [facility] [address] [place], [address] Hematocrit (Bld) [Volume fraction] 38.7 % Normal 37-47 [facility] Comment on above: Order Comment: Order Date: 07/11/24Order Info: [id number] - CBCD Performed By: #### L 100.0100, L500.4050 #### [facility] [address] [place], [address] Hemoglobin (Bld) [Mass/Vol] 12.7 g/dL Normal 12.0-15.0 [facility] Comment on above: Order Comment: Order Date: 07/11/24Order Info: [id number] - CBCD Performed By: #### L 100.0100, L500.4050 #### [facility] [address] [place], [address] IG% 0.300 Normal 0.0-0.9 [facility] Comment on above: Order Comment: Order Date: 07/11/24Order Info: [id number] - CBCD Result Comment: IG% - Immature Granulocytes (promyelocytes, myelocytes and metamyelocytes) > 1% indicates that a LEFT SHIFT is Present. Performed By: #### L 100.0100, L500.4050 #### [facility] [address] [place], [address] Lymphocytes/100 WBC (Bld) 28.3 % Normal 19-41 [facility] Comment on above: Order Comment: Order Date: 07/11/24Order Info: [id number] - CBCD Performed By: #### L 100.0100, L500.4050 #### [facility] [address] [place], [address] MCH (RBC) [Entitic mass] 32.2 pg High 27.0-32.0 [facility] Comment on above: Order Comment: Order Date: 07/11/24Order Info: [id number] - CBCD Performed By: #### L 100.0100, L500.4050 #### [facility] [address] [place], [address] MCHC (RBC) [Mass/Vol] 32.8 g/dL Normal 32-36 [facility] Comment on above: Order Comment: Order Date: 07/11/24Order Info: [id number] - CBCD Performed By: #### L 100.0100, L500.4050 #### [facility] [address] [place], [address] MCV (RBC) [Entitic vol] 98.2 fL Normal 81-99 [facility] Comment on above: Order Comment: Order Date: 07/11/24Order Info: [id number] - CBCD Performed By: #### L 100.0100, L500.4050 #### [facility] [address] [place], [address] Monocytes/100 WBC (Bld) 9.1 % Normal 0-10 [facility] Comment on above: Order Comment: Order Date: 07/11/24Order Info: [id number] - CBCD Performed By: #### L 100.0100, L500.4050 #### [facility] [address] [place], [address] Neutrophils/100 WBC (Bld) 59.7 % Normal 47-70 [facility] Comment on above: Order Comment: Order Date: 07/11/24Order Info: [id number] - CBCD Performed By: #### L 100.0100, L500.4050 #### [facility] [address] [place], [address] Nucleated RBC (Bld) [#/Vol] 0 10*3/uL Normal 0-5 [facility] Comment on above: Order Comment: Order Date: 07/11/24Order Info: [id number] - CBCD Performed By: #### L 100.0100, L500.4050 #### [facility] [address] [place], [address] Platelet mean volume (Bld) [Entitic vol] 9.6 fL Normal 6.2-12.0 [facility] Comment on above: Order Comment: Order Date: 07/11/24Order Info: [id number] - CBCD Performed By: #### L 100.0100, L500.4050 #### [facility] [address] [place], [address] Platelets (Bld) [#/Vol] 240 10*3/uL Normal 150-450 [facility] Comment on above: Order Comment: Order Date: 07/11/24Order Info: [id number] - CBCD Performed By: #### L 100.0100, L500.4050 #### [facility] [address] [place], [address] RBC (Bld) [#/Vol] 3.94 10*6/uL Low 4.2-5.4 [facility] Comment on above: Order Comment: Order Date: 07/11/24Order Info: [id number] - CBCD Performed By: #### L 100.0100, L500.4050 #### [facility] [address] [place], [address] RDW SD 49.8 fl High 35.1-43.9 [facility] Comment on above: Order Comment: Order Date: 07/11/24Order Info: [id number] - CBCD Performed By: #### L 100.0100, L500.4050 #### [facility] [address] [place], [address] WBC (Bld) [#/Vol] 6.4 10*3/uL Normal 4.4-11.0 [facility] Comment on above: Order Comment: Order Date: 07/11/24Order Info: [id number] - CBCD Performed By: #### L 100.0100, L500.4050 #### [facility] [address] [place], [address] Calculated very low density lipoprotein (VLDL) cholesterol measurementOrdered By: Coral Martinez on 07-22-2024 Calculated very low density lipoprotein (VLDL) cholesterol measurement 17 mg/dL 5-40 [facility] VLDL Cholesterol 17 mg/dL 5-40 [facility] Carbon dioxide, total [Moles /volume] in Central venous bloodOrdered By: Coral Martinez on 07-22-2024 CO2 [Moles/Vol] 24.0 mmol/L 21.0-32.0 [facility] Chloride assayOrdered By: Es Martinez on 07-22-2024 Chloride [Moles/Vol] 103 mmol/L 98-108 [facility] Comprehensive Metabolic Prof ilon 07-22-2024 Albumin [Mass/Vol] 4.1 g/dL Normal 3.5-5.0 [facility] Comment on above: Order Comment: Order Date: 07/11/24Order Info: [id number] - CMPOrder Info: [id number] - LIPIDOrder Info: [id number] - TSH Performed By: #### L 100.0100, L500.4050 #### [facility] [address] [place], [address] Albumin/Globulin [Mass ratio] 1.4 {ratio} Normal 0.9-2.4 [facility] Comment on above: Order Comment: Order Date: 07/11/24Order Info: [id number] - CMPOrder Info: [id number] - LIPIDOrder Info: [id number] - TSH Performed By: #### L 100.0100, L500.4050 #### [facility] [address] [place], [address] ALK PHOS 70 U/L Normal 35-104 [facility] Comment on above: Order Comment: Order Date: 07/11/24Order Info: [id number] - CMPOrder Info: [id number] - LIPIDOrder Info: [id number] - TSH Performed By: #### L 100.0100, L500.4050 #### [facility] [address] [place], [address] ALT [Catalytic activity/Vol] 35 U/L Normal <=34 [facility] Comment on above: Order Comment: Order Date: 07/11/24Order Info: [id number] - CMPOrder Info: [id number] - LIPIDOrder Info: [id number] - TSH Performed By: #### L 100.0100, L500.4050 #### [facility] [address] [place], [address] AST [Catalytic activity/Vol] 32 U/L Normal <=31 [facility] Comment on above: Order Comment: Order Date: 07/11/24Order Info: [id number] - CMPOrder Info: [id number] - LIPIDOrder Info: [id number] - TSH Performed By: #### L 100.0100, L500.4050 #### [facility] [address] [place], [address] Bilirubin [Mass/Vol] 0.21 mg/dL Normal 0.00-1.30 [facility] Comment on above: Order Comment: Order Date: 07/11/24Order Info: [id number] - CMPOrder Info: [id number] - LIPIDOrder Info: [id number] - TSH Performed By: #### L 100.0100, L500.4050 #### [facility] [address] [place], [address] BUN/CRE 10.6 RATIO Normal 10-20 [facility] Comment on above: Order Comment: Order Date: 07/11/24Order Info: [id number] - CMPOrder Info: [id number] - LIPIDOrder Info: [id number] - TSH Performed By: #### L 100.0100, L500.4050 #### [facility] [address] [place], [address] Calcium [Mass/Vol] 8.7 mg/dL Normal 7.6-11.0 [facility] Comment on above: Order Comment: Order Date: 07/11/24Order Info: [id number] - CMPOrder Info: [id number] - LIPIDOrder Info: [id number] - TSH Performed By: #### L 100.0100, L500.4050 #### [facility] [address] [place], [address] Chloride [Moles/Vol] 103 mmol/L Normal 98-108 [facility] Comment on above: Order Comment: Order Date: 07/11/24Order Info: [id number] - CMPOrder Info: [id number] - LIPIDOrder Info: [id number] - TSH Performed By: #### L 100.0100, L500.4050 #### [facility] [address] [place], [address] CO2 [Moles/Vol] 24.0 mmol/L Normal 21.0-32.0 [facility] Comment on above: Order Comment: Order Date: 07/11/24Order Info: [id number] - CMPOrder Info: [id number] - LIPIDOrder Info: [id number] - TSH Performed By: #### L 100.0100, L500.4050 #### [facility] [address] [place], [address] Creatinine [Mass/Vol] 0.83 mg/dL Normal 0.70-1.20 [facility] Comment on above: Order Comment: Order Date: 07/11/24Order Info: [id number] - CMPOrder Info: [id number] - LIPIDOrder Info: [id number] - TSH Performed By: #### L 100.0100, L500.4050 #### [facility] [address] [place], [address] GAP 10 Normal 5-15 [facility] Comment on above: Order Comment: Order Date: 07/11/24Order Info: [id number] - CMPOrder Info: [id number] - LIPIDOrder Info: [id number] - TSH Performed By: #### L 100.0100, L500.4050 #### [facility] [address] [place], [address] GFR/1.73 sq M.predicted among non-blacks MDRD (S/P/Bld) [Vol rate/Area] 89 mL/min/{1.73_m2} Normal >60 [facility] Comment on above: Order Comment: Order Date: 07/11/24Order Info: [id number] - CMPOrder Info: [id number] - LIPIDOrder Info: [id number] - TSH Result Comment: mL/m in/1.73m2 CKD-EPI Creatinine Equation (2020) Performed By: #### L 100.0100, L500.4050 #### [facility] [address] [place], [address] Globulin (S) [Mass/Vol] 2.9 g/dL Normal 2.2-4.2 [facility] Comment on above: Order Comment: Order Date: 07/11/24Order Info: [id number] - CMPOrder Info: [id number] - LIPIDOrder Info: [id number] - TSH Performed By: #### L 100.0100, L500.4050 #### [facility] [address] [place], [address] Glucose [Mass/Vol] 98 mg/dL Normal 70-99 [facility] Comment on above: Order Comment: Order Date: 07/11/24Order Info: [id number] - CMPOrder Info: [id number] - LIPIDOrder Info: [id number] - TSH Performed By: #### L 100.0100, L500.4050 #### [facility] [address] [place], [address] Potassium [Moles/Vol] 4.3 mmol/L Normal 3.3-5.1 [facility] Comment on above: Order Comment: Order Date: 07/11/24Order Info: [id number] - CMPOrder Info: [id number] - LIPIDOrder Info: [id number] - TSH Performed By: #### L 100.0100, L500.4050 #### [facility] [address] [place], [address] Sodium [Moles/Vol] 137 mmol/L Normal 133-145 [facility] Comment on above: Order Comment: Order Date: 07/11/24Order Info: [id number] - CMPOrder Info: [id number] - LIPIDOrder Info: [id number] - TSH Performed By: #### L 100.0100, L500.4050 #### [facility] [address] [place], [address] T PROT 6.9 g/dL Normal 5.9-8.4 [facility] Comment on above: Order Comment: Order Date: 07/11/24Order Info: [id number] - CMPOrder Info: [id number] - LIPIDOrder Info: [id number] - TSH Performed By: #### L 100.0100, L500.4050 #### [facility] [address] [place], [place], [address] Urea nitrogen [Mass/Vol] 9 mg/dL Normal 4-19 [facility] Comment on above: Order Comment: Order Date: 07/11/24Order Info: [id number] - CMPOrder Info: [id number] - LIPIDOrder Info: [id number] - TSH Performed By: #### L 100.0100, L500.4050 #### [facility] [address] [place], [address] Eosinophil percentageOrdered By: [facility] on 07-22-2024 Eosinophils/100 WBC (Bld) 1.7 % 0-5 [facility] Erythrocyte distribution wid th ratioOrdered By: [facility] on 07-22-2024 Erythrocyte distribution width (RBC) [Ratio] 13.7 % 11.6-14.6 [facility] Erythrocyte distribution wid th standard deviationOrdered By: Coral Martinez on 07-22-2024 Erythrocyte distribution width (RBC) [Entitic vol] 49.8 fL High 35.1-43.9 [facility] Erythrocyte distribution width (RBC) [Ratio] 49.8 fl High 35.1-43.9 [facility] GFR/1.73 sq M.predicted diana g non-blacks MDRD (S/P/Bld) [Vol rate/Area]Ordered By: Coral Martinez on 07-22-2024 Estimated GFR (MDRD) Non-Af Amer 89 >60 [facility] Comment on above: mL/min/1.73m2 CKD-EP I Creatinine Equation (2020) Glomerular filtration rate ( GFR) estimation/1.73 sq m using serum, plasma, or whole bOrdered By: Coral Martinez on 07-22-2024 GFR/1.73 sq M.predicted among non-blacks MDRD (S/P/Bld) [Vol rate/Area] 89 mL/min/{1.73_m2} >60 [facility] Comment on above: mL/min/1.73m2 CKD-EP I Creatinine Equation (2020) Hematocrit Auto (Bld) [Volum e fraction]Ordered By: Coral Martinez on 07-22-2024 Hematocrit (Bld) [Volume fraction] 38.7 % 37-47 [facility] Hemoglobin measurementOrdere d By: Coral Martinez on 07-22-2024 Hemoglobin (Bld) [Mass/Vol] 12.7 g/dL 12.0-15.0 [facility] Immature granulocytes/100 WB C Auto (Bld)Ordered By: Coral Martinez on 07-22-2024 Immature granulocytes/100 WBC (Bld) 0.300 % 0.0-0.9 [facility] Comment on above: IG% - Immature Granu locytes (promyelocytes, myelocytes and metamyelocytes) > 1% indicates that a LEFT SHIFT is Present. L506.1001on 07-22-2024 Vitamin D 25-OH 25.0 ng/mL Low 30-100 [facility] Comment on above: Order Comment: Order Date: 07/11/24Order Info: [id number] - CMPOrder Info: [id number] - LIPIDOrder Info: [id number] - TSH Result Comment: Linnea min D Status Deficiency: <20 ng/mL (50nmol/L) Insufficiency: 20-30 ng/mL (50-75 nmol/L) Sufficiency: 30-100 ng/mL (75-250 nmol/L) Toxicity: >100 ng/mL (>250 nmol/L) Performed By: #### L 506.1001 ####[facility] [id number] [place], [address] LDL calc ser/plasOrdered By: Coral Martinez on 07-22-2024 Cholesterol in LDL [Mass/Vol] 76 mg/dL [facility] Comment on above: Txcnbfgntl=255-238 m g/dL & Higher Ubww=797 mg/dL or greater LDL Cholesterol, Calculated 76 mg/dL [facility] Comment on above: Crsirfxxof=509-149 m g/dL & Higher Uziv=733 mg/dL or greater Laboratory - Chemistry and C hemistry - challengeOrdered By: Coral Martinez on 07-22-2024 AST [Catalytic activity/Vol] 32 U/L <32 [facility] Lipid Profileon 07-22-2024 CHOL:HDL 2.31 Normal [facility] Comment on above: Order Comment: Order Date: 07/11/24Order Info: [id number] - CMPOrder Info: [id number] - LIPIDOrder Info: [id number] - TSH Performed By: #### L 100.0100, L500.4050 #### [facility] [address] [place], [address] Cholesterol [Mass/Vol] 163 mg/dL Normal <=200 [facility] Comment on above: Order Comment: Order Date: 07/11/24Order Info: [id number] - CMPOrder Info: [id number] - LIPIDOrder Info: [id number] - TSH Result Comment: Chol esterol level, Desirable <200 mg/dL Borderline high cholesterol 200-239 mg/dL High cholesterol >=240 mg/dL Recommendations of the NCEP Adult Treatment Panel for the following risk-cutoff thresholds for the [place] population. Performed By: #### L 100.0100, L500.4050 #### [facility] [address] [place], [address] Cholesterol in HDL [Mass/Vol] 71 mg/dL Normal [facility] Comment on above: Order Comment: Order Date: 07/11/24Order Info: [id number] - CMPOrder Info: [id number] - LIPIDOrder Info: [id number] - TSH Result Comment: [place] onal Cholesterol Education Program (NCEP) guidelines: <40 mg/dL: Low HDL-cholesterol (major risk factor for CHD) >= 60 mg/dL: High HDL-cholesterol (negative risk factor for CHD) HDL-cholesterol is affected by a number of factors, e.g. smoking, exercise, hormones, sex and age. Performed By: #### L 100.0100, L500.4050 #### [facility] [address] [place], [address] Cholesterol in LDL [Mass/Vol] 76 mg/dL Normal [facility] Comment on above: Order Comment: Order Date: 07/11/24Order Info: [id number] - CMPOrder Info: [id number] - LIPIDOrder Info: [id number] - TSH Result Comment: Bord tbmcbj=212-305 mg/dL Higher Vaba=034 mg/dL or greater Performed By: #### L 100.0100, L500.4050 #### [facility] [address] [place], [address] Cholesterol in VLDL [Mass/Vol] 17 mg/dL Normal 5-40 [facility] Comment on above: Order Comment: Order Date: 07/11/24Order Info: [id number] - CMPOrder Info: [id number] - LIPIDOrder Info: [id number] - TSH Performed By: #### L 100.0100, L500.4050 #### [facility] [address] [place], [address] Triglyceride [Mass/Vol] 84 mg/dL Normal [facility] Comment on above: Order Comment: Order Date: 07/11/24Order Info: [id number] - CMPOrder Info: [id number] - LIPIDOrder Info: [id number] - TSH Result Comment: The drugs N-Acetylcysteine and Metamizole may falsely depress this assay. Normal range: <150 mg/dL Borderline High: 150-199 mg/dL High: 200-499 mg/dL Very High: >500 mg/dL Performed By: #### L 100.0100, L500.4050 #### [facility] [address] [place], [address] Lymphocytes Auto (Unsp spec) [#/Vol]Ordered By: Coral Martinez on 07-22-2024 Lymphocytes (Bld) [#/Vol] 1.80 10*3/uL 0.83-4.51 [facility] Lymphocytes/100 WBC Auto (Un sp spec)Ordered By: Coral Martinez on 07-22-2024 Lymphocytes/100 WBC (Bld) 28.3 % 19-41 [facility] MCV (mean corpuscular volume ) determinationOrdered By: Coral Martinez on 07-22-2024 MCV (RBC) [Entitic vol] 98.2 fL 81-99 [facility] Mean corpuscular hemoglobin (MCH) determinationOrdered By: Coral Martinez on 07-22-2024 MCH (RBC) [Entitic mass] 32.2 pg High 27.0-32.0 [facility] Mean corpuscular hemoglobin concentration (MCHC) determinationOrdered By: Coral Martinez on 07-22-2024 MCHC (RBC) [Mass/Vol] 32.8 g/dL 32-36 [facility] Mean platelet volume determi nationOrdered By: Coral Martinez on 07-22-2024 Platelet mean volume (Bld) [Entitic vol] 9.6 fL 6.2-12.0 [facility] Monocyte percentageOrdered B y: Coral aMrtinez on 07-22-2024 Monocytes/100 WBC (Bld) 9.1 % 0-10 [facility] Neutrophil percentageOrdered By: Coral Martinez on 07-22-2024 Neutrophils/100 WBC (Bld) 59.7 % 47-70 [facility] Nucleated red blood cell per centageOrdered By: Coral Martinez on 07-22-2024 Nucleated RBC/100 WBC (Bld) [Ratio] 0 % 0-5 [facility] Platelet countOrdered By: Es Martinez on 07-22-2024 Platelets (Bld) [#/Vol] 240 10*3/uL 150-450 [facility] Potassium (Unsp spec) [Mass/ Vol]Ordered By: Coral Martinez on 07-22-2024 Potassium [Moles/Vol] 4.3 mmol/L 3.3-5.1 [facility] Potassium measurement (mass/ volume)Ordered By: Coral Martinez on 07-22-2024 Potassium (Unsp spec) [Mass/Vol] 4.3 mmol/L 3.3-5.1 [facility] RBC Auto (Bld) [#/Vol]Ordere d By: Coral Martinez on 07-22-2024 RBC (Bld) [#/Vol] 3.94 10*6/uL Low 4.2-5.4 [facility] Screening total cholesterol/ high density lipoprotein (HDL) cholesterol ratioOrdered By: Coral Martinez on 07-22-2024 Cholesterol.total/Lindy sterol in HDL [Mass ratio] 2.31 {ratio} [facility] Serum creatinine measurement (mass/volume)Ordered By: Coral Martinez on 07-22-2024 Creatinine [Mass/Vol] 0.83 mg/dL 0.70-1.20 [facility] Serum globulin measurementOr dered By: Coral Martinez on 07-22-2024 Globulin (S) [Mass/Vol] 2.9 g/dL 2.2-4.2 [facility] Serum glucose measurement (m ass/volume)Ordered By: Coral Martinez on 07-22-2024 Glucose [Mass/Vol] 98 mg/dL 70-99 [facility] Serum or plasma alanine jordan otransferase (ALT) measurementOrdered By: Coral Martinez on 07-22-2024 ALT [Catalytic activity/Vol] 35 U/L <35 [facility] Serum or plasma albumin chey urement (mass/volume)Ordered By: oCral Martinez on 07-22-2024 Albumin [Mass/Vol] 4.1 g/dL 3.5-5.0 [facility] Serum or plasma albumin/glob ulin mass ratioOrdered By: Coral Martinez on 07-22-2024 Albumin/Globulin [Mass ratio] 1.4 {ratio} 0.9-2.4 [facility] Serum or plasma alkaline yony sphatase measurementOrdered By: Coral Martinez on 07-22-2024 ALP [Catalytic activity/Vol] 70 U/L 35-104 [facility] Serum or plasma calcium chey urement (mass/volume)Ordered By: Coral Martinez on 07-22-2024 Calcium [Mass/Vol] 8.7 mg/dL 7.6-11.0 [facility] Serum or plasma cholesterol in HDL measurement (mass/volume)Ordered By: Coral Martinez on 07-22-2024 Cholesterol in HDL [Mass/Vol] 71 mg/dL >40 [facility] Comment on above: National Cholesterol Education Program (NCEP) guidelines:<40 mg/dL: Low HDL-cholesterol (major risk factor for CHD)>= 60 mg/dL: High HDL-cholesterol (negative risk factor for CHD)HDL-cholesterol is affected by a number of factors, e.g. smoking, exercise, hormones, sex and age. Serum or plasma cholesterol measurement (mass/volume)Ordered By: Coral Martinez on 07-22-2024 Cholesterol [Mass/Vol] 163 mg/dL <201 [facility] Comment on above: Cholesterol level, D esirable <200 mg/dLBorderline high cholesterol 200-239 mg/dLHigh cholesterol >=240 mg/dLRecommendations of the NCEP Adult Treatment Panel for the following risk-cutoff thresholds for the [place] population. Serum or plasma urea nitroge n measurement (mass/volume)Ordered By: Coral Martinez on 07-22-2024 Urea nitrogen [Mass/Vol] 9 mg/dL 4-19 [facility] Sodium levelOrdered By: Moe Martinez on 07-22-2024 Sodium [Moles/Vol] 137 mmol/L 133-145 [facility] TSH DL <= 0.005 mIU/L QnOrde red By: Coral Martinez on 07-22-2024 Thyroid Stimulating Hormone (TSH) 0.289 uIU/mL Low 0.300-4.200 [facility] TSH Qn 0.289 uIU/mL Low 0.300-4.200 [facility] Thyroid Stim Hormone (TSH)on 07-22-2024 TSH 0.289 uIU/mL Low 0.300-4.200 [facility] Comment on above: Order Comment: Order Date: 07/11/24Order Info: [id number] - CMPOrder Info: [id number] - LIPIDOrder Info: [id number] - TSH Performed By: #### L 100.0100, L500.4050 #### [facility] [address] [place] [address]. [place], [address] Total proteinOrdered By: Karo Martinez on 07-22-2024 Protein [Mass/Vol] 6.9 g/dL 5.9-8.4 [facility] Triglycerides measurementOrd ered By: Coral Martinez on 07-22-2024 Triglyceride [Mass/Vol] 84 mg/dL <199 [facility] Comment on above: The drugs N-Acetylcy steine and Metamizole may falsely depress this assay. Normal range: <150 mg/dLBorderline High: 150-199 mg/dLHigh: 200-499 mg/dLVery High: >500 mg/dL Vitamin D, 25-hydroxyOrdered By: Coral Martinez on 07-22-2024 Vitamin D 25-Hydroxy 25.0 ng/mL Low 30-100 [facility] Comment on above: Vitamin D StatusDefi ciency: <20 ng/mL (50nmol/L)Insufficiency: 20-30 ng/mL (50-75 nmol/L)Sufficiency: 30-100 ng/mL (75-250 nmol/L)Toxicity: >100 ng/mL (>250 nmol/L) White blood cell (WBC) count Ordered By: Coral Martinez on 07-22-2024 WBC (Bld) [#/Vol] 6.4 10*3/uL 4.4-11.0 [facility] Absolute lymphocyte countOrd ered By: Clarice Liriano on 06-21-2024 Lymphocytes Auto (Unsp spec) [#/Vol] 2.27 10*3/uL 0.83-4.51 [facility] Absolute neutrophil countOrd ered By: Clarice Liriano on 06-21-2024 Neutrophils (Bld) [#/Vol] 3.8 10*3/uL 2.0-7.7 [facility] Albumin to globulin ratioOrd ered By: Clarice Liriano on 06-21-2024 Albumin/Globulin [Mass ratio] 0.9 {ratio} 0.9-2.4 [facility] Automated lymphocyte count a s percentage of total leukocytesOrdered By: Clarice Liriano on 06-21-2024 Lymphocytes/100 WBC Auto (Unsp spec) 33.0 % 19-41 [facility] Basophil percentageOrdered B y: Clarice Liriano on 06-21-2024 Basophils/100 WBC (Bld) 0.6 % 0-1 [facility] Bilirubin, totalOrdered By: Clarice Liriano on 06-21-2024 Bilirubin [Mass/Vol] 0.30 mg/dL 0.20-1.00 [facility] Comment on above: For patients on eltr ombopag therapy, use of Dimension [place] TBIL is not recommended. Blood urea nitrogen (BUN)/cr eatinine ratioOrdered By: Clarice Liriano on 06-21-2024 Urea nitrogen/Creatinine [Mass ratio] 11.6 mg/mg 10-20 [facility] CBC W/Diff, Automatedon 02- Absolute Lymph 2.27 X10 3/uL Normal 0.83-4.51 [facility] Comment on above: Performed By: #### L 100.0100, L500.4050 #### [facility] [address] [place], [address] Absolute Neut 3.8 X10 3/uL Normal 2.0-7.7 [facility] Comment on above: Performed By: #### L 100.0100, L500.4050 #### [facility] [address] [place], [address] Basophils/100 WBC (Bld) 0.6 % Normal 0-1 [facility] Comment on above: Performed By: #### L 100.0100, L500.4050 #### [facility] [address] [place], [address] Eosinophils/100 WBC (Bld) 1.6 % Normal 0-5 [facility] Comment on above: Performed By: #### L 100.0100, L500.4050 #### [facility] [address] [place], [address] Erythrocyte distribution width (RBC) [Ratio] 13.6 % Normal 11.6-14.6 [facility] Comment on above: Performed By: #### L 100.0100, L500.4050 #### [facility] [address] [place], [address] Hematocrit (Bld) [Volume fraction] 38.6 % Normal 37-47 [facility] Comment on above: Performed By: #### L 100.0100, L500.4050 #### [facility] [address] [place], [address] Hemoglobin (Bld) [Mass/Vol] 12.7 g/dL Normal 12.0-15.0 [facility] Comment on above: Performed By: #### L 100.0100, L500.4050 #### [facility] [address] [place], [address] IG% 0.100 Normal 0.0-0.9 [facility] Comment on above: Result Comment: IG% - Immature Granulocytes (promyelocytes, myelocytes and metamyelocytes) > 1% indicates that a LEFT SHIFT is Present. Performed By: #### L 100.0100, L500.4050 #### [facility] [address] [place], [address] Lymphocytes/100 WBC (Bld) 33.0 % Normal 19-41 [facility] Comment on above: Performed By: #### L 100.0100, L500.4050 #### [facility] [address] [place], [address] MCH (RBC) [Entitic mass] 32.2 pg High 27.0-32.0 [facility] Comment on above: Performed By: #### L 100.0100, L500.4050 #### [facility] [address] [place], [address] MCHC (RBC) [Mass/Vol] 32.9 g/dL Normal 32-36 [facility] Comment on above: Performed By: #### L 100.0100, L500.4050 #### [facility] [address] [place], [address] MCV (RBC) [Entitic vol] 97.7 fL Normal 81-99 [facility] Comment on above: Performed By: #### L 100.0100, L500.4050 #### [facility] [address] [place], [address] Monocytes/100 WBC (Bld) 9.8 % Normal 0-10 [facility] Comment on above: Performed By: #### L 100.0100, L500.4050 #### [facility] [address] [place], [address] Neutrophils/100 WBC (Bld) 54.9 % Normal 47-70 [facility] Comment on above: Performed By: #### L 100.0100, L500.4050 #### [facility] [address] [place], [address] Nucleated RBC (Bld) [#/Vol] 0 10*3/uL Normal 0-5 [facility] Comment on above: Performed By: #### L 100.0100, L500.4050 #### [facility] [address] [place], [address] Platelet mean volume (Bld) [Entitic vol] 10.4 fL Normal 6.2-12.0 [facility] Comment on above: Performed By: #### L 100.0100, L500.4050 #### [facility] [address] [place], [address] Platelets (Bld) [#/Vol] 248 10*3/uL Normal 150-450 [facility] Comment on above: Performed By: #### L 100.0100, L500.4050 #### [facility] [address] [place], [address] RBC (Bld) [#/Vol] 3.95 10*6/uL Low 4.2-5.4 [facility] Comment on above: Performed By: #### L 100.0100, L500.4050 #### [facility] [address] [place], [address] RDW SD 48.3 fl High 35.1-43.9 [facility] Comment on above: Performed By: #### L 100.0100, L500.4050 #### [facility] [address] [place], [address] WBC (Bld) [#/Vol] 6.9 10*3/uL Normal 4.4-11.0 [facility] Comment on above: Performed By: #### L 100.0100, L500.4050 #### [facility] [address] [place], [address] Carbon dioxide measurementOr dered By: Clarice Liriano on 06-21-2024 CO2 [Moles/Vol] 27.0 mmol/L 21.0-32.0 [facility] Chloride measurementOrdered By: Clarice Liriano on 06-21-2024 Chloride [Moles/Vol] 104 mmol/L 98-107 [facility] Comprehensive Metabolic Prof ilon 06-21-2024 Albumin [Mass/Vol] 3.6 g/dL Normal 3.2-5.0 [facility] Comment on above: Performed By: #### L 100.0100, L500.4050 #### [facility] [address] [place], [address] Albumin/Globulin [Mass ratio] 0.9 {ratio} Normal 0.9-2.4 [facility] Comment on above: Performed By: #### L 100.0100, L500.4050 #### [facility] [address] [place], [address] ALK P 83 U/L Normal 45-117 [facility] Comment on above: Performed By: #### L 100.0100, L500.4050 #### [facility] [address] [place], [address] ALT [Catalytic activity/Vol] 34 U/L Normal 13-56 [facility] Comment on above: Performed By: #### L 100.0100, L500.4050 #### [facility] [address] [place], [address] AST [Catalytic activity/Vol] 18 U/L Normal 15-37 [facility] Comment on above: Performed By: #### L 100.0100, L500.4050 #### [facility] [address] [place], [address] Bilirubin [Mass/Vol] 0.30 mg/dL Normal 0.20-1.00 [facility] Comment on above: Result Comment: For patients on eltrombopag therapy, use of [place] TBIL is not recommended. Performed By: #### L 100.0100, L500.4050 #### [facility] [address] [place], [address] BUN/CRE 11.6 RATIO Normal 10-20 [facility] Comment on above: Performed By: #### L 100.0100, L500.4050 #### [facility] [address] [place], [address] CA,Total 8.7 mg/dL Normal 8.5-10.1 [facility] Comment on above: Performed By: #### L 100.0100, L500.4050 #### [facility] [address] [place], [address] Chloride [Moles/Vol] 104 mmol/L Normal 98-107 [facility] Comment on above: Performed By: #### L 100.0100, L500.4050 #### [facility] [address] [place], [address] CO2 [Moles/Vol] 27.0 mmol/L Normal 21.0-32.0 [facility] Comment on above: Performed By: #### L 100.0100, L500.4050 #### [facility] [address] [place], [address] Creatinine [Mass/Vol] 0.86 mg/dL Normal 0.55-1.02 [facility] Comment on above: Result Comment: The validity of the calculated GFR GFRAA in patients over 70 years has not been determined. Clinical correlation is essential. Performed By: #### L 100.0100, L500.4050 #### [facility] [address] [place], [address] EST GFR - AA 92 mL/min Normal >60 [facility] Comment on above: Result Comment: Afri can [place] GFR Calc Performed By: #### L 100.0100, L500.4050 #### [facility] [address] [place], [address] GAP 8 Normal 5-15 [facility] Comment on above: Performed By: #### L 100.0100, L500.4050 #### [facility] [address] [place], [address] GFR/1.73 sq M.predicted among non-blacks MDRD (S/P/Bld) [Vol rate/Area] 76 mL/min/{1.73_m2} Normal >60 [facility] Comment on above: Result Comment: Non- GFR Calc Performed By: #### L 100.0100, L500.4050 #### [facility] [address] [place], [address] Globulin (S) [Mass/Vol] 3.9 g/dL Normal 2.2-4.2 [facility] Comment on above: Performed By: #### L 100.0100, L500.4050 #### [facility] [address] [place], [address] Glucose [Mass/Vol] 98 mg/dL Normal 74-106 [facility] Comment on above: Performed By: #### L 100.0100, L500.4050 #### [facility] [address] [place], [address] Potassium [Moles/Vol] 4.1 mmol/L Normal 3.5-5.1 [facility] Comment on above: Performed By: #### L 100.0100, L500.4050 #### [facility] [address] [place], [address] Sodium [Moles/Vol] 138 mmol/L Normal 136-145 [facility] Comment on above: Performed By: #### L 100.0100, L500.4050 #### [facility] [address] [place], [address] T PROT 7.5 g/dL Normal 6.4-8.2 [facility] Comment on above: Performed By: #### L 100.0100, L500.4050 #### [facility] [address] [place], [address] Urea nitrogen [Mass/Vol] 10 mg/dL Normal 7-18 [facility] Comment on above: Performed By: #### L 100.0100, L500.4050 #### [facility] [address] [place], [address] Eosinophil percentageOrdered By: Clarice Liriano on 06-21-2024 Eosinophils/100 WBC (Bld) 1.6 % 0-5 [facility] Erythrocyte distribution wid th ratioOrdered By: Clarice Liriano on 06-21-2024 Erythrocyte distribution width (RBC) [Ratio] 13.6 % 11.6-14.6 [facility] Erythrocyte distribution wid th standard deviationOrdered By: Clarice Liriano on 06-21-2024 Erythrocyte distribution width (RBC) [Entitic vol] 48.3 fL High 35.1-43.9 [facility] Erythrocyte distribution width (RBC) [Ratio] 48.3 fl High 35.1-43.9 [facility] Estimated glomerular filtrat ion rate (GFR) AmericanOrdered By: Clarice Liriano on 06-21-2024 Estimated GFR (MDRD) Amer 92 mL/min >60 [facility] Comment on above: GFR Calc Glomerular filtration rate ( GFR) estimationOrdered By: Clarice Liriano on 06-21-2024 Estimated GFR (MDRD) Non-Af Amer 76 mL/min >60 [facility] Comment on above: Non- GFR Calc GFR/1.73 sq M.predicted among non-blacks MDRD (S/P/Bld) [Vol rate/Area] 76 mL/min/{1.73_m2} >60 [facility] Comment on above: Non- GFR Calc Glucose measurementOrdered B y: Clarice Liriano on 06-21-2024 Glucose [Mass/Vol] 98 mg/dL 74-106 [facility] Hematocrit Auto (Bld) [Volum e fraction]Ordered By: Clarice Liriano on 06-21-2024 Hematocrit (Bld) [Volume fraction] 38.6 % 37-47 [facility] Hemoglobin measurementOrdere d By: Clarice Liriano on 06-21-2024 Hemoglobin (Bld) [Mass/Vol] 12.7 g/dL 12.0-15.0 [facility] Immature granulocytes/100 WB C Auto (Bld)Ordered By: Clarice Liriano on 06-21-2024 Immature granulocytes/100 WBC (Bld) 0.100 % 0.0-0.9 [facility] Comment on above: IG% - Immature Granu locytes (promyelocytes, myelocytes and metamyelocytes) > 1% indicates that a LEFT SHIFT is Present. Laboratory - Chemistry and C hemistry - challengeOrdered By: Clarice Liriano on 06-21-2024 AST [Catalytic activity/Vol] 18 U/L 15-37 [facility] Lymphocytes Auto (Unsp spec) [#/Vol]Ordered By: Clarice Liriano on 06-21-2024 Lymphocytes (Bld) [#/Vol] 2.27 10*3/uL 0.83-4.51 [facility] Lymphocytes/100 WBC Auto (Un sp spec)Ordered By: Clarice Liriano on 06-21-2024 Lymphocytes/100 WBC (Bld) 33.0 % 19-41 [facility] MCV (mean corpuscular volume ) determinationOrdered By: Clarice Liriano on 06-21-2024 MCV (RBC) [Entitic vol] 97.7 fL 81-99 [facility] Mean corpuscular hemoglobin (MCH) determinationOrdered By: Clarice Liriano on 06-21-2024 MCH (RBC) [Entitic mass] 32.2 pg High 27.0-32.0 [facility] Mean corpuscular hemoglobin concentration (MCHC) determinationOrdered By: Clarice Liriano on 06-21-2024 MCHC (RBC) [Mass/Vol] 32.9 g/dL 32-36 [facility] Mean platelet volume determi nationOrdered By: Clarice Liriano on 06-21-2024 Platelet mean volume (Bld) [Entitic vol] 10.4 fL 6.2-12.0 [facility] Monocyte percentageOrdered B y: Clarice Liriano on 06-21-2024 Monocytes/100 WBC (Bld) 9.8 % 0-10 [facility] Neutrophil percentageOrdered By: Clarice Liriano on 06-21-2024 Neutrophils/100 WBC (Bld) 54.9 % 47-70 [facility] Nucleated red blood cell per centageOrdered By: Clarice Liriano on 06-21-2024 Nucleated RBC/100 WBC (Bld) [Ratio] 0 % 0-5 [facility] Platelet countOrdered By: Lynn Liriano on 06-21-2024 Platelets (Bld) [#/Vol] 248 10*3/uL 150-450 [facility] Potassium measurementOrdered By: Clarice Liriano on 06-21-2024 Potassium [Moles/Vol] 4.1 mmol/L 3.5-5.1 [facility] RBC Auto (Bld) [#/Vol]Ordere d By: Clarice Liriano on 06-21-2024 RBC (Bld) [#/Vol] 3.95 10*6/uL Low 4.2-5.4 [facility] Serum anion gap measurementO rdered By: Clarice Liriano on 06-21-2024 Anion gap [Moles/Vol] 8 mmol/L 5-15 [facility] Serum globulin measurementOr dered By: Clarice Liriano on 06-21-2024 Globulin (S) [Mass/Vol] 3.9 g/dL 2.2-4.2 [facility] Serum or plasma alanine jordan otransferase (ALT) measurementOrdered By: Clarice Liriano on 06-21-2024 ALT [Catalytic activity/Vol] 34 U/L 13-56 [facility] Serum or plasma albumin chey urement (mass/volume)Ordered By: Clarice Liriano on 06-21-2024 Albumin [Mass/Vol] 3.6 g/dL 3.2-5.0 [facility] Serum or plasma alkaline yony sphatase measurementOrdered By: Clarice Liriano on 06-21-2024 ALP [Catalytic activity/Vol] 83 U/L 45-117 [facility] Serum or plasma calcium chey urement (mass/volume)Ordered By: Clarice Liriano on 06-21-2024 Calcium [Mass/Vol] 8.7 mg/dL 8.5-10.1 [facility] Serum or plasma creatinine m easurement (mass/volume)Ordered By: Clarice Liriano on 06-21-2024 Creatinine [Mass/Vol] 0.86 mg/dL 0.55-1.02 [facility] Comment on above: The validity of the calculated GFR & GFRAA in patients over 70 years has not been determined. Clinical correlation is essential. Serum or plasma urea nitroge n measurement (mass/volume)Ordered By: Clarice Liriano on 06-21-2024 Urea nitrogen [Mass/Vol] 10 mg/dL 7-18 [facility] Sodium levelOrdered By: Elana Liriano on 06-21-2024 Sodium [Moles/Vol] 138 mmol/L 136-145 [facility] Total proteinOrdered By: Jersey Liriano on 06-21-2024 Protein [Mass/Vol] 7.5 g/dL 6.4-8.2 [facility] White blood cell (WBC) count Ordered By: Clarice Liriano on 06-21-2024 WBC (Bld) [#/Vol] 6.9 10*3/uL 4.4-11.0 [facility] CBC W/Diff, Automatedon 03-10 Absolute Lymph 2.23 X10 3/uL Normal 0.83-4.51 [facility] Comment on above: Performed By: #### L 100.0100, L500.4050 #### [facility] [address] [place], [place] [address], [address] Absolute Neut 5.2 X10 3/uL Normal 2.0-7.7 [facility] Comment on above: Performed By: #### L 100.0100, L500.4050 #### [facility] [address] [place], [address] Basophils/100 WBC (Bld) 0.7 % Normal 0-1 [facility] Comment on above: Performed By: #### L 100.0100, L500.4050 #### [facility] [address] [place], [address] Eosinophils/100 WBC (Bld) 1.7 % Normal 0-5 [facility] Comment on above: Performed By: #### L 100.0100, L500.4050 #### [facility] [address] [place], [address] Erythrocyte distribution width (RBC) [Ratio] 12.7 % Normal 11.6-14.6 [facility] Comment on above: Performed By: #### L 100.0100, L500.4050 #### [facility] [address] [place], [address] Hematocrit (Bld) [Volume fraction] 41.7 % Normal 37-47 [facility] Comment on above: Performed By: #### L 100.0100, L500.4050 #### [facility] [address] [place], [address] Hemoglobin (Bld) [Mass/Vol] 13.5 g/dL Normal 12.0-15.0 [facility] Comment on above: Performed By: #### L 100.0100, L500.4050 #### [facility] [address] [place], [address] IG% 0.200 Normal 0.0-0.9 [facility] Comment on above: Result Comment: IG% - Immature Granulocytes (promyelocytes, myelocytes and metamyelocytes) > 1% indicates that a LEFT SHIFT is Present. Performed By: #### L 100.0100, L500.4050 #### [facility] [address] [place], [address] Lymphocytes/100 WBC (Bld) 27.1 % Normal 19-41 [facility] Comment on above: Performed By: #### L 100.0100, L500.4050 #### [facility] [address] [place], [address] MCH (RBC) [Entitic mass] 31.9 pg Normal 27.0-32.0 [facility] Comment on above: Performed By: #### L 100.0100, L500.4050 #### [facility] [address] [place], [address] MCHC (RBC) [Mass/Vol] 32.4 g/dL Normal 32-36 [facility] Comment on above: Performed By: #### L 100.0100, L500.4050 #### [facility] [address] [place], [address] MCV (RBC) [Entitic vol] 98.6 fL Normal 81-99 [facility] Comment on above: Performed By: #### L 100.0100, L500.4050 #### [facility] [address] [place], [address] Monocytes/100 WBC (Bld) 7.4 % Normal 0-10 [facility] Comment on above: Performed By: #### L 100.0100, L500.4050 #### [facility] [address] [place], [address] Neutrophils/100 WBC (Bld) 62.9 % Normal 47-70 [facility] Comment on above: Performed By: #### L 100.0100, L500.4050 #### [facility] [address] [place], [address] Nucleated RBC (Bld) [#/Vol] 0 10*3/uL Normal 0-5 [facility] Comment on above: Performed By: #### L 100.0100, L500.4050 #### [facility] [address] [place], [address] Platelet mean volume (Bld) [Entitic vol] 10.2 fL Normal 6.2-12.0 [facility] Comment on above: Performed By: #### L 100.0100, L500.4050 #### [facility] [address] [place], [address] Platelets (Bld) [#/Vol] 248 10*3/uL Normal 150-450 [facility] Comment on above: Performed By: #### L 100.0100, L500.4050 #### [facility] [address] [place], [address] RBC (Bld) [#/Vol] 4.23 10*6/uL Normal 4.2-5.4 [facility] Comment on above: Performed By: #### L 100.0100, L500.4050 #### [facility] [address] [place], [address] RDW SD 45.6 fl High 35.1-43.9 [facility] Comment on above: Performed By: #### L 100.0100, L500.4050 #### [facility] [address] [place], [address] WBC (Bld) [#/Vol] 8.2 10*3/uL Normal 4.4-11.0 [facility] Comment on above: Performed By: #### L 100.0100, L500.4050 #### [facility] [address] [place], [address] Comprehensive Metabolic Prof [facility] 03-21-2024 Albumin [Mass/Vol] 4.0 g/dL Normal 3.2-5.0 [facility] Comment on above: Performed By: #### L 100.0100, L500.4050 #### [facility] [address] [place], [address] Albumin/Globulin [Mass ratio] 1.1 {ratio} Normal 0.9-2.4 [facility] Comment on above: Performed By: #### L 100.0100, L500.4050 #### [facility] [address] [place], [address] ALK P 78 U/L Normal 45-117 [facility] Comment on above: Performed By: #### L 100.0100, L500.4050 #### [facility] [address] [place], [address] ALT [Catalytic activity/Vol] 38 U/L Normal 13-56 [facility] Comment on above: Performed By: #### L 100.0100, L500.4050 #### [facility] [address] [place], [address] AST [Catalytic activity/Vol] 19 U/L Normal 15-37 [facility] Comment on above: Performed By: #### L 100.0100, L500.4050 #### [facility] [address] [place], [address] Bilirubin [Mass/Vol] 0.40 mg/dL Normal 0.20-1.00 [facility] Comment on above: Result Comment: For patients on eltrombopag therapy, use of Dimension [place] TBIL is not recommended. Performed By: #### L 100.0100, L500.4050 #### [facility] [address] [place], [address] BUN/CRE 14.4 RATIO Normal 10-20 [facility] Comment on above: Performed By: #### L 100.0100, L500.4050 #### [facility] [address] [place], [address] CA,Total 9.1 mg/dL Normal 8.5-10.1 [facility] Comment on above: Performed By: #### L 100.0100, L500.4050 #### [facility] [address] [place], [address] Chloride [Moles/Vol] 104 mmol/L Normal 98-107 [facility] Comment on above: Performed By: #### L 100.0100, L500.4050 #### [facility] [address] [place], [address] CO2 [Moles/Vol] 26.0 mmol/L Normal 21.0-32.0 [facility] Comment on above: Performed By: #### L 100.0100, L500.4050 #### [facility] [address] [place], [address] Creatinine [Mass/Vol] 0.90 mg/dL Normal 0.55-1.02 [facility] Comment on above: Result Comment: The validity of the calculated GFR GFRAA in patients over 70 years has not been determined. Clinical correlation is essential. Performed By: #### L 100.0100, L500.4050 #### [facility] [address] [place], [address] EST GFR - AA 87 mL/min Normal >60 [facility] Comment on above: Result Comment: Afri can [place] GFR Calc Performed By: #### L 100.0100, L500.4050 #### [facility] [address] [place], [address] GAP 6 Normal 5-15 [facility] Comment on above: Performed By: #### L 100.0100, L500.4050 #### [facility] [address] [place], [address] GFR/1.73 sq M.predicted among non-blacks MDRD (S/P/Bld) [Vol rate/Area] 72 mL/min/{1.73_m2} Normal >60 [facility] Comment on above: Result Comment: Non- GFR Calc Performed By: #### L 100.0100, L500.4050 #### [facility] [address] [place], [address] Globulin (S) [Mass/Vol] 3.7 g/dL Normal 2.2-4.2 [facility] Comment on above: Performed By: #### L 100.0100, L500.4050 #### [facility] [address] [place], [address] Glucose [Mass/Vol] 93 mg/dL Normal 74-106 [facility] Comment on above: Performed By: #### L 100.0100, L500.4050 #### [facility] [address] [place], [address] Potassium [Moles/Vol] 4.1 mmol/L Normal 3.5-5.1 [facility] Comment on above: Performed By: #### L 100.0100, L500.4050 #### [facility] [address] [place], [address] Sodium [Moles/Vol] 136 mmol/L Normal 136-145 [facility] Comment on above: Performed By: #### L 100.0100, L500.4050 #### [facility] [address] [place], [address] T PROT 7.7 g/dL Normal 6.4-8.2 [facility] Comment on above: Performed By: #### L 100.0100, L500.4050 #### [facility] [address] [place], [address] Urea nitrogen [Mass/Vol] 13 mg/dL Normal 7-18 [facility] Comment on above: Performed By: #### L 100.0100, L500.4050 #### [facility] [address] [place], [address] CBC + DIFFon 01-06-2024 Baso # 0.02 x10EE3/UL Normal 0.00 - 0.10 [facility] Comment on above: Performed By: #### 2 53609 #### [facility],[address] [place] [address] Basophils/100 WBC (Bld) 0.3 % Normal 0.0 - 2.0 [facility] Comment on above: Performed By: #### 2 05116 #### [facility],[address] [place] [address] CBC + DIFF Normal [facility] Comment on above: Result Comment: CBC- COMPLETE BLOOD COUNT Performed By: #### 2 85513 #### [facility],[address] [place] [address] EO # 0.12 x10EE3/UL Normal 0.00 - 0.50 [facility] Comment on above: Performed By: #### 2 59570 #### [facility],[address] [place] [address] Eosinophils/100 WBC (Bld) 1.8 % Normal 0.0 - 7.0 [facility] Comment on above: Performed By: #### 2 96344 #### [facility],[address] [place] [address] Erythrocyte distribution width (RBC) [Ratio] 13.2 % Normal 12.0 - 15.6 [facility] Comment on above: Performed By: #### 2 49380 #### [facility],[address] [place] [address] Hematocrit (Bld) [Volume fraction] 39.9 % Normal 34.0 - 46.0 [facility] Comment on above: Performed By: #### 2 31818 #### [facility],[address] [place] [address] Hemoglobin (Bld) [Mass/Vol] 13.4 g/dL Normal 12.0 - 16.0 [facility] Comment on above: Performed By: #### 2 71142 #### [facility],[address] [place] [address] Lymph # 2.00 x10EE3/UL Normal 0.80 - 2.80 [facility] Comment on above: Performed By: #### 2 15049 #### [facility],[address] [place] [address] Lymphocytes/100 WBC (Bld) 29.8 % Normal 20.0 - 45.0 [facility] Comment on above: Performed By: #### 2 03361 #### [facility],[address] [place] [address] MANUAL DIFF N/A Normal [facility] Comment on above: Performed By: #### 2 22965 #### [facility],[address] [place] [address] MCH (RBC) [Entitic mass] 32 pg Normal 27 - 33 [facility] Comment on above: Performed By: #### 2 99871 #### [facility],[address] [place] [address] MCHC 34 X10 3 Normal 32 - 36 [facility] Comment on above: Performed By: #### 2 71108 #### [facility],[address] [place] [address] 11891 MCV (RBC) [Entitic vol] 96 fL Normal 80 - 99 [facility] Comment on above: Performed By: #### 2 16806 #### [facility],[address] [place] [address] Oxford # 0.52 x10EE3/UL Normal 0.20 - 1.00 [facility] Comment on above: Performed By: #### 2 45968 #### [facility],[address] [place] [address] MONOS % 7.8 % Normal 0.0 - 10.0 [facility] Comment on above: Performed By: #### 2 15829 #### [facility],[address] [place] [address]148 Morphology Deonte (Bld) [Interp] N/A Normal [facility] Comment on above: Performed By: #### 2 87291 #### [facility],[address] [place] [address] 20065 Neut # 4.04 x10EE3/UL Normal 1.50 - 7.10 [facility] Comment on above: Performed By: #### 2 98824 #### [facility],[address] [place] [address] Neutrophils/100 WBC (Bld) 60.3 % Normal 46.0 - 76.0 [facility] Comment on above: Performed By: #### 2 57465 #### [facility],[address] [place] [address] PLATELET 267 x10EE3/UL Normal 150 - 450 [facility] Comment on above: Performed By: #### 2 93183 #### [facility],[address] [place] [address] 41783 Platelet mean volume (Bld) [Entitic vol] 7.3 fL Normal 6.6 - 10.5 [facility] Comment on above: Result Comment: AUTO MATED DIFFERENTIAL Performed By: #### 2 73968 #### [facility],[address] [place] [address] 31104 RBC 4.18 x 10EE6/UL Normal 4.10 - 5.30 [facility] Comment on above: Performed By: #### 2 89806 #### [facility],[address] [place] [address]2578 WBC 6.7 x 10EE3/UL Normal 4.5 - 10.8 [facility] Comment on above: Performed By: #### 2 72587 #### [facility],[address] [place] [address] 35175 CMP with eGFRon 01-06-2024 AGE 43 years Normal [facility] Comment on above: Performed By: #### 2 53210 #### [facility],[address] [place] [address] 08380 Albumin [Mass/Vol] 3.7 g/dL Normal 3.4 - 5.0 [facility] Comment on above: Performed By: #### 2 76226 #### [facility],[address] [place] [address] 88139 Albumin/Globulin [Mass ratio] 1.0 {ratio} Normal 0.9 - 1.6 [facility] Comment on above: Performed By: #### 2 59527 #### [facility],[address] [place] [address] 16525 ALK PHOS 91 U/L Normal 46 - 116 [facility] Comment on above: Performed By: #### 2 96986 #### [facility],[address] [place] [address] 94415 ALT [Catalytic activity/Vol] 34 U/L Normal 16 - 63 [facility] Comment on above: Performed By: #### 2 63857 #### [facility],[address] [place] [address] 21354 Anion gap [Moles/Vol] 9 mmol/L Low 10 - 20 [facility] Comment on above: Performed By: #### 2 85848 #### [facility],[address] [place] [address] 02114 AST [Catalytic activity/Vol] 20 U/L Normal 13 - 39 [facility] Comment on above: Performed By: #### 2 49302 #### [facility],[address] [place] [address] 36871 B/C RATIO 15 ratio Normal 0 - 30 [facility] Comment on above: Performed By: #### 2 67643 #### [facility],[address] [place] [address] 11866 Bilirubin [Mass/Vol] 0.4 mg/dL Normal 0.2 - 1.0 [facility] Comment on above: Performed By: #### 2 43919 #### [facility],[address] [place] [address] 48976 Calcium [Mass/Vol] 8.7 mg/dL Normal 8.5 - 10.1 [facility] Comment on above: Performed By: #### 2 50924 #### [facility],[address] [place] [address] 71899 Chloride [Moles/Vol] 102 mmol/L Normal 98 - 107 [facility] Comment on above: Performed By: #### 2 00675 #### [facility],[address] [place] [address] 26949 CMP with eGFR Normal [facility] Comment on above: Result Comment: COMP REHENSIVE METABOLIC PANEL Performed By: #### 2 25487 #### [facility],[address] [place] [address] 45161 CO2 [Moles/Vol] 29.9 mmol/L Normal 21.0 - 32.0 [facility] Comment on above: Performed By: #### 2 78063 #### [facility],[address] [place] [address] 20454 Creatinine [Mass/Vol] 0.89 mg/dL Normal 0.55 - 1.02 [facility] Comment on above: Performed By: #### 2 75747 #### [facility],[address] [place] [address] 25392 GFR/1.73 sq M.predicted among non-blacks MDRD (S/P/Bld) [Vol rate/Area] mL/min/{1.73_m2} Normal 60 - 999 [facility] Comment on above: Performed By: #### 2 55172 #### [facility],[address] [place] [address] 25286 Result Comment: ACCO RDING TO THE NATIONAL KIDNEY DISEASE EDUCATION PROGRAM(NKDE), A NORMAL eGFR IS A VALUE GREATER THAN OR EQUAL TO 60 ML/MIN/1.73 SQ METERS. CHRONIC KIDNEY DISEASE: <60mL/MIN/1.73 SQ METERS KIDNEY FAILURE: <15mL/MIN/1.73 SQ METERS THIS TEST SHOULD ONLY BE USED FOR PATIENTS 18 YEARS OF AGE AND OLDER. Globulin (S) [Mass/Vol] 3.8 g/dL Normal 1.5 - 3.8 [facility] Comment on above: Performed By: #### 2 20127 #### [address] [address] Glucose [Mass/Vol] 94 mg/dL Normal 74 - 106 [facility] Comment on above: Performed By: #### 2 06825 #### [address] [address] Potassium [Moles/Vol] 4.0 mmol/L Normal 3.5 - 5.1 [facility] Comment on above: Performed By: #### 2 88039 #### [address] [address] Protein [Mass/Vol] 7.5 g/dL Normal 6.4 - 8.2 [facility] Comment on above: Performed By: #### 2 60257 #### [address] [address] Sodium [Moles/Vol] 137 mmol/L Normal 136 - 145 [facility] Comment on above: Performed By: #### 2 17893 #### [address] [address] Urea nitrogen [Mass/Vol] 13 mg/dL Normal 7 - 18 [facility] Comment on above: Performed By: #### 2 04594 #### [address] [address] CBC + DIFFon 12-01-2023 Baso # 0.03 x10EE3/UL Normal 0.00 - 0.10 [facility] Comment on above: Performed By: #### 2 69525 #### [facility],[address] [place], [place] [address] Basophils/100 WBC (Bld) 0.4 % Normal 0.0 - 2.0 [facility] Comment on above: Performed By: #### 2 24861 #### [facility],[address] [place] [address] CBC + DIFF Normal [facility] Comment on above: Result Comment: CBC- COMPLETE BLOOD COUNT Performed By: #### 2 85736 #### [facility],[address] [place] [address] EO # 0.07 x10EE3/UL Normal 0.00 - 0.50 [facility] Comment on above: Performed By: #### 2 70878 #### [facility],[address] [place] [address] Eosinophils/100 WBC (Bld) 0.8 % Normal 0.0 - 7.0 [facility] Comment on above: Performed By: #### 2 26679 #### [facility],[address] [place] [address] Erythrocyte distribution width (RBC) [Ratio] 13.4 % Normal 12.0 - 15.6 [facility] Comment on above: Performed By: #### 2 97074 #### [facility],[address] [place] [address] Hematocrit (Bld) [Volume fraction] 41.3 % Normal 34.0 - 46.0 [facility] Comment on above: Performed By: #### 2 73207 #### [facility],[address] [place], [place] [address] Hemoglobin (Bld) [Mass/Vol] 13.9 g/dL Normal 12.0 - 16.0 [facility] Comment on above: Performed By: #### 2 48108 #### [facility],[address] [place] [address] Lymph # 1.96 x10EE3/UL Normal 0.80 - 2.80 [facility] Comment on above: Performed By: #### 2 20883 #### [facility],[address] [place] [address] Lymphocytes/100 WBC (Bld) 22.9 % Normal 20.0 - 45.0 [facility] Comment on above: Performed By: #### 2 16239 #### [facility],[address] [place] [address] MANUAL DIFF N/A Normal [facility] Comment on above: Performed By: #### 2 23899 #### [facility],[address] [place] [address] MCH (RBC) [Entitic mass] 32 pg Normal 27 - 33 [facility] Comment on above: Performed By: #### 2 81398 #### [facility],[address] [place] [address] MCHC 34 X10 3 Normal 32 - 36 [facility] Comment on above: Performed By: #### 2 47811 #### [facility],[address] [place] [address] 49896 MCV (RBC) [Entitic vol] 96 fL Normal 80 - 99 [facility] Comment on above: Performed By: #### 2 48535 #### [facility],[address] [place] [address] 13399 Oxford # 0.51 x10EE3/UL Normal 0.20 - 1.00 [facility] Comment on above: Performed By: #### 2 53028 #### [facility],[address] [place] [address] 61374 MONOS % 5.9 % Normal 0.0 - 10.0 [facility] Comment on above: Performed By: #### 2 94334 #### [facility],[address] [place] [address] 72135 Morphology Deonte (Bld) [Interp] N/A Normal [facility] Comment on above: Performed By: #### 2 72676 #### [facility],[address] [place] [address] 66954 Neut # 5.97 x10EE3/UL Normal 1.50 - 7.10 [facility] Comment on above: Performed By: #### 2 24018 #### [facility],[address] [place] [address] 07931 Neutrophils/100 WBC (Bld) 70.0 % Normal 46.0 - 76.0 [facility] Comment on above: Performed By: #### 2 42009 #### [facility],[address] [place] [address] 35978 PLATELET 265 x10EE3/UL Normal 150 - 450 [facility] Comment on above: Performed By: #### 2 33439 #### [facility],[address] [place] [address] 34172 Platelet mean volume (Bld) [Entitic vol] 7.8 fL Normal 6.6 - 10.5 [facility] Comment on above: Result Comment: AUTO MATED DIFFERENTIAL Performed By: #### 2 86909 #### [facility],[address] [place] [address] 90661 RBC 4.29 x 10EE6/UL Normal 4.10 - 5.30 [facility] Comment on above: Performed By: #### 2 58120 #### [facility],[address] [place] [address] 66977 WBC 8.5 x 10EE3/UL Normal 4.5 - 10.8 [facility] Comment on above: Performed By: #### 2 80053 #### [facility],[address] [place] [address] 59204 CMP with eGFRon 12-01-2023 AGE 43 years Normal [facility] Comment on above: Performed By: #### 2 10945 #### [facility],[address] [place] [address] 20602 Albumin [Mass/Vol] 3.6 g/dL Normal 3.4 - 5.0 [facility] Comment on above: Performed By: #### 2 14931 #### [facility],[address] [place] [address] 89705 Albumin/Globulin [Mass ratio] 1.0 {ratio} Normal 0.9 - 1.6 [facility] Comment on above: Performed By: #### 2 35286 #### [facility],[address] [place] [address] 90615 ALK PHOS 83 U/L Normal 46 - 116 [facility] Comment on above: Performed By: #### 2 99460 #### [facility],[address] [place] [address] 68897 ALT [Catalytic activity/Vol] 32 U/L Normal 16 - 63 [facility] Comment on above: Performed By: #### 2 65590 #### [facility],[address] [place] [address] 81902 Anion gap [Moles/Vol] 10 mmol/L Normal 10 - 20 [facility] Comment on above: Performed By: #### 2 97461 #### [facility],[address] [place] [address] 81994 AST [Catalytic activity/Vol] 21 U/L Normal 13 - 39 [facility] Comment on above: Performed By: #### 2 26061 #### [facility],[address] [place] [address] 36937 B/C RATIO 12 ratio Normal 0 - 30 [facility] Comment on above: Performed By: #### 2 05926 #### [facility],[address] [place] [address] 24368 Bilirubin [Mass/Vol] 0.4 mg/dL Normal 0.2 - 1.0 [facility] Comment on above: Performed By: #### 2 65873 #### [facility],[address] [place] [address] 52084 Calcium [Mass/Vol] 8.6 mg/dL Normal 8.5 - 10.1 [facility] Comment on above: Performed By: #### 2 11924 #### [facility],[address] [place] [address] 15375 Chloride [Moles/Vol] 102 mmol/L Normal 98 - 107 [facility] Comment on above: Performed By: #### 2 92326 #### [facility],[address] [place] [address] 37975 CMP with eGFR Normal [facility] Comment on above: Result Comment: COMP REHENSIVE METABOLIC PANEL Performed By: #### 2 54084 #### [facility],[address] [place] [address] 33633 CO2 [Moles/Vol] 29.0 mmol/L Normal 21.0 - 32.0 [facility] Comment on above: Performed By: #### 2 39987 #### [facility],[address] [place] [address] 29354 Creatinine [Mass/Vol] 0.90 mg/dL Normal 0.55 - 1.02 [facility] Comment on above: Performed By: #### 2 03254 #### [facility],[address] [place] [address] 71043 GFR/1.73 sq M.predicted among non-blacks MDRD (S/P/Bld) [Vol rate/Area] mL/min/{1.73_m2} Normal 60 - 999 [facility] Comment on above: Performed By: #### 2 73454 #### [facility],[address] [place] [address] 29696 Result Comment: ACCO RDING TO THE NATIONAL KIDNEY DISEASE EDUCATION PROGRAM(NKDE), A NORMAL eGFR IS A VALUE GREATER THAN OR EQUAL TO 60 ML/MIN/1.73 SQ METERS. CHRONIC KIDNEY DISEASE: <60mL/MIN/1.73 SQ METERS KIDNEY FAILURE: <15mL/MIN/1.73 SQ METERS THIS TEST SHOULD ONLY BE USED FOR PATIENTS 18 YEARS OF AGE AND OLDER. Globulin (S) [Mass/Vol] 3.7 g/dL Normal 1.5 - 3.8 [facility] Comment on above: Performed By: #### 2 83490 #### [facility],[address] [place] [address] 95737 Glucose [Mass/Vol] 94 mg/dL Normal 74 - 106 [facility] Comment on above: Performed By: #### 2 19747 #### [facility],[address] [place] [address] 31895 Potassium [Moles/Vol] 4.1 mmol/L Normal 3.5 - 5.1 [facility] Comment on above: Performed By: #### 2 91670 #### [facility],[address] [place] [address] 76268 Protein [Mass/Vol] 7.3 g/dL Normal 6.4 - 8.2 [facility] Comment on above: Performed By: #### 2 31760 #### [facility],[address] [place] [address] 89529 Sodium [Moles/Vol] 137 mmol/L Normal 136 - 145 [facility] Comment on above: Performed By: #### 2 20733 #### [facility],[address] [place] [address] 10627 Urea nitrogen [Mass/Vol] 11 mg/dL Normal 7 - 18 [facility] Comment on above: Performed By: #### 2 34056 #### [facility],[address] [place] [address] 92498 LIPID PROFILEon 12-01-2023 Cholesterol [Mass/Vol] 166 mg/dL Normal 0 - 240 [facility] Comment on above: Performed By: #### 2 33087 #### [facility],[address] [place] [address] 33345 Cholesterol in HDL [Mass/Vol] 75 mg/dL High 40 - 60 [facility] Comment on above: Performed By: #### 2 53654 #### [facility],[address] [place] [address] 81564 Cholesterol in LDL [Mass/Vol] 77 mg/dL Normal 0 - 129 [facility] Comment on above: Performed By: #### 2 11697 #### [facility],[address] [place] [address] 08854 Cholesterol.total/Lindy sterol in HDL [Mass ratio] 2.2 {ratio} Normal 0.0 - 5.0 [facility] Comment on above: Performed By: #### 2 88651 #### [facility],[address] [place] [address] 88713 Lipid 1996 panel Normal [facility] Comment on above: Result Comment: LIPI D PROFILE Performed By: #### 2 78855 #### [facility],[address] [place] [address] 88341 Triglyceride [Mass/Vol] 72 mg/dL Normal 0 - 150 [facility] Comment on above: Performed By: #### 2 54977 #### [facility],[address] [place] [address] 91968 T4-FREE (FREE THYROXINE)on 0 12-01-2023 Free T4 [Mass/Vol] 0.72 ng/dL Low 0.76 - 1.46 [facility] Comment on above: Result Comment: P otential of falsely elevated results when biotin concentrations are > 10 ng/mL. Performed By: #### 2 36318 #### [facility],[address] [place] [address] 04616 TSHon 12-01-2023 TSH Qn 0.98 m[IU]/L Normal 0.35 - 3.74 [facility] Comment on above: Performed By: #### 2 55282 #### [facility],[address] [place] [address] 68856 CBC + DIFFon 07-15-2023 Baso # 0.03 x10EE3/UL Normal 0.00 - 0.10 [facility] Comment on above: Performed By: #### 2 59067 #### [facility],[address] [place] [address] 57813 Basophils/100 WBC (Bld) 0.4 % Normal 0.0 - 2.0 [facility] Comment on above: Performed By: #### 2 18445 #### [facility],[address] [place] [address] CBC + DIFF Normal [facility] Comment on above: Result Comment: CBC- COMPLETE BLOOD COUNT Performed By: #### 2 87493 #### [facility],[address] [place] [address] EO # 0.06 x10EE3/UL Normal 0.00 - 0.50 [facility] Comment on above: Performed By: #### 2 76480 #### [facility],[address] [place], [place] [address] Eosinophils/100 WBC (Bld) 0.7 % Normal 0.0 - 7.0 [facility] Comment on above: Performed By: #### 2 08080 #### [facility],[address] [place] [address] Erythrocyte distribution width (RBC) [Ratio] 13.2 % Normal 12.0 - 15.6 [facility] Comment on above: Performed By: #### 2 34527 #### [facility],[address] [place] [address] Hematocrit (Bld) [Volume fraction] 39.8 % Normal 34.0 - 46.0 [facility] Comment on above: Performed By: #### 2 94397 #### [facility],[address] [place], [place] [address] Hemoglobin (Bld) [Mass/Vol] 13.3 g/dL Normal 12.0 - 16.0 [facility] Comment on above: Performed By: #### 2 98289 #### [facility],[address] [place] [address] 32682 Lymph # 2.60 x10EE3/UL Normal 0.80 - 2.80 [facility] Comment on above: Performed By: #### 2 52638 #### [facility],[address] [place] [address] 10575 Lymphocytes/100 WBC (Bld) 31.6 % Normal 20.0 - 45.0 [facility] Comment on above: Performed By: #### 2 25944 #### [facility],[address] [place], [place] [address] MANUAL DIFF N/A Normal [facility] Comment on above: Performed By: #### 2 19299 #### [facility],[address] [place] [address] MCH (RBC) [Entitic mass] 31 pg Normal 27 - 33 [facility] Comment on above: Performed By: #### 2 37802 #### [facility],[address] [place] [address] 30156 MCHC 34 X10 3 Normal 32 - 36 [facility] Comment on above: Performed By: #### 2 76684 #### [facility],[address] [place] [address] 12466 MCV (RBC) [Entitic vol] 92 fL Normal 80 - 99 [facility] Comment on above: Performed By: #### 2 72159 #### [facility],[address] [place] [address] 07282 [place] # 0.72 x10EE3/UL Normal 0.20 - 1.00 [facility] Comment on above: Performed By: #### 2 48357 #### [facility],[address] [place] [address] 24137 MONOS % 8.8 % Normal 0.0 - 10.0 [facility] Comment on above: Performed By: #### 2 73138 #### [facility],[address] [place] [address] 99170 Morphology Deonte (Bld) [Interp] N/A Normal [facility] Comment on above: Performed By: #### 2 89599 #### [facility],[address] [place] [address] 67425 Neut # 4.81 x10EE3/UL Normal 1.50 - 7.10 [facility] Comment on above: Performed By: #### 2 21034 #### [facility],[address] [place] [address] 65855 Neutrophils/100 WBC (Bld) 58.6 % Normal 46.0 - 76.0 [facility] Comment on above: Performed By: #### 2 93129 #### [facility],[address] [place] [address] 42718 PLATELET 287 x10EE3/UL Normal 150 - 450 [facility] Comment on above: Performed By: #### 2 41806 #### [facility],[address] [place] [address] 29065 Platelet mean volume (Bld) [Entitic vol] 8.0 fL Normal 6.6 - 10.5 [facility] Comment on above: Result Comment: AUTO MATED DIFFERENTIAL Performed By: #### 2 04878 #### [facility],[address] [place] [address] 06355 RBC 4.31 x 10EE6/UL Normal 4.10 - 5.30 [facility] Comment on above: Performed By: #### 2 73514 #### [facility],[address] [place] [address] 54383 WBC 8.2 x 10EE3/UL Normal 4.5 - 10.8 [facility] Comment on above: Performed By: #### 2 16695 #### [facility],[address] [place] [address] 66602 CMP with eGFRon 07-15-2023 AGE 43 years Normal [facility] Comment on above: Performed By: #### 2 37310 #### [facility],[address] [place] [address] 28632 Albumin [Mass/Vol] 3.5 g/dL Normal 3.4 - 5.0 [facility] Comment on above: Performed By: #### 2 82870 #### [facility],[address] [place] [address] 13693 Albumin/Globulin [Mass ratio] 0.9 {ratio} Normal 0.9 - 1.6 [facility] Comment on above: Performed By: #### 2 71608 #### [facility],[address] [place] [address] 74695 ALK PHOS 76 U/L Normal 46 - 116 [facility] Comment on above: Performed By: #### 2 35790 #### [facility],[address] [place] [address] 05732 ALT [Catalytic activity/Vol] 39 U/L Normal 16 - 63 [facility] Comment on above: Performed By: #### 2 32807 #### [facility],[address] [place] [address] 67310 Anion gap [Moles/Vol] 16 mmol/L Normal 10 - 20 [facility] Comment on above: Performed By: #### 2 56145 #### [facility],[address] [place] [address] 25431 AST [Catalytic activity/Vol] 24 U/L Normal 13 - 39 [facility] Comment on above: Performed By: #### 2 26446 #### [facility],[address] [place] [address] 23076 B/C RATIO 17 ratio Normal 0 - 30 [facility] Comment on above: Performed By: #### 2 46607 #### [facility],[address] [place] [address] 22674 Bilirubin [Mass/Vol] 0.4 mg/dL Normal 0.2 - 1.0 [facility] Comment on above: Performed By: #### 2 68732 #### [facility],[address] [place] [address] 72709 Calcium [Mass/Vol] 8.7 mg/dL Normal 8.5 - 10.1 [facility] Comment on above: Performed By: #### 2 28492 #### [facility],[address] [place] [address] 50877 Chloride [Moles/Vol] 104 mmol/L Normal 98 - 107 [facility] Comment on above: Performed By: #### 2 38386 #### [facility],[address] [place], [place] [address] CMP with eGFR Normal [facility] Comment on above: Result Comment: COMP REHENSIVE METABOLIC PANEL Performed By: #### 2 28018 #### [facility],[address] [place] [address] 63643 CO2 [Moles/Vol] 25.2 mmol/L Normal 21.0 - 32.0 [facility] Comment on above: Performed By: #### 2 40111 #### [facility],[address] [place] [address] 03563 Creatinine [Mass/Vol] 0.90 mg/dL Normal 0.55 - 1.02 [facility] Comment on above: Performed By: #### 2 99079 #### [facility],[address] [place] [address] 59621 GFR/1.73 sq M.predicted among non-blacks MDRD (S/P/Bld) [Vol rate/Area] mL/min/{1.73_m2} Normal 60 - 999 [facility] Comment on above: Performed By: #### 2 60782 #### [facility],[address] [place], [place] [address] Result Comment: ACCO RDING TO THE NATIONAL KIDNEY DISEASE EDUCATION PROGRAM(NKDE), A NORMAL eGFR IS A VALUE GREATER THAN OR EQUAL TO 60 ML/MIN/1.73 SQ METERS. CHRONIC KIDNEY DISEASE: <60mL/MIN/1.73 SQ METERS KIDNEY FAILURE: <15mL/MIN/1.73 SQ METERS THIS TEST SHOULD ONLY BE USED FOR PATIENTS 18 YEARS OF AGE AND OLDER. Globulin (S) [Mass/Vol] 3.9 g/dL High 1.5 - 3.8 [facility] Comment on above: Performed By: #### 2 83762 #### [facility],[address] [place] [address] 88199 Glucose [Mass/Vol] 106 mg/dL Normal 74 - 106 [facility] Comment on above: Performed By: #### 2 86976 #### [address] [address] Potassium [Moles/Vol] 3.8 mmol/L Normal 3.5 - 5.1 [facility] Comment on above: Performed By: #### 2 22852 #### [address] [address] Protein [Mass/Vol] 7.4 g/dL Normal 6.4 - 8.2 [facility] Comment on above: Performed By: #### 2 93832 #### [address] [address] Sodium [Moles/Vol] 141 mmol/L Normal 136 - 145 [facility] Comment on above: Performed By: #### 2 71530 #### [address] [address] Urea nitrogen [Mass/Vol] 15 mg/dL Normal 7 - 18 [facility] Comment on above: Performed By: #### 2 26596 #### [address] [address] LABORATORYOrdered By: SYSTEM SYSTEM on 01-19-2023 Albumin [...] 05-25-2022 HCG ( test) Ql (U) Negative [facility] Comment on above: Very dilute urine sp ecimens, as indicated by a low specificgravity, may not contain entry level marketing representative levels of hCG. If is still suspected, a first morning urinespecimen should be collected 48 hours later and tested. Absolute lymphocyte countOrd ered By: Dr. Liriano on 05-19-2022 Lymphocytes Auto (Unsp spec) [#/Vol] 3.05 10*3/uL 0.83-4.51 [facility] Basophil percentageOrdered B y: Dr. Liriano on 05-19-2022 Basophils/100 WBC (Bld) 0.5 % 0-1 [facility] Bilirubin [Mass/Vol] 0.30 mg/dL 0.20-1.00 [facility] Comment on above: For patients on eltr ombopag therapy, use of Dimension [place] TBIL is not recommended. Chloride [Moles/Vol] 102 mmol/L 98-107 [facility] Eosinophils/100 WBC (Bld) 0.6 % 0-5 [facility] Glucose [Mass/Vol] 100 mg/dL 74-106 [facility] Comment on above: Fasting Glucose resu lt from 100 to 125 mg/dL suggests IMPAIRED HOMEOSTASIS per A.D.A. criteria. Neutrophils (Bld) [#/Vol] 6.1 10*3/uL 2.0-7.7 [facility] Neutrophils/100 WBC (Bld) 60.9 % 47-70 [facility] Potassium [Moles/Vol] 3.9 mmol/L 3.5-5.1 [facility] Protein [Mass/Vol] 7.4 g/dL 6.4-8.2 [facility] Sodium [Moles/Vol] 138 mmol/L 136-145 [facility] WBC (Bld) [#/Vol] 10.0 10*3/uL 4.4-11.0 [facility] Blood erythrocytes count (nu mber/volume)Ordered By: Dr. Liriano on 05-19-2022 RBC (Bld) [#/Vol] 4.03 10*6/uL 4.2-5.4 [facility] Blood hemoglobin measurement (mass/volume)Ordered By: Dr. Liriano on 05-19-2022 Hemoglobin (Bld) [Mass/Vol] 13.2 g/dL 12.0-15.0 [facility] Blood lymphocytes/100 leukoc ytesOrdered By: Dr. Liriano on 05-19-2022 Lymphocytes/100 WBC (Bld) 30.7 % 19-41 [facility] Blood monocytes/100 leukocyt esOrdered By: Dr. Liriano on 05-19-2022 Monocytes/100 WBC (Bld) 7.1 % 0-10 [facility] Blood platelet mean volumeOr dered By: Dr. Liriano on 05-19-2022 Platelet mean volume (Bld) [Entitic vol] 9.7 fL 6.2-12.0 [facility] Determination of erythrocyte mean corpuscular volume (MCV)Ordered By: Dr. Liriano on 05-19-2022 MCV (RBC) [Entitic vol] 99.3 fL 81-99 [facility] Hematocrit Auto (Bld) [Volum e fraction]Ordered By: Dr. Liriano on 05-19-2022 Hematocrit (Bld) [Volume fraction] 40.0 % 37-47 [facility] Laboratory - Chemistry and C hemistry - challengeOrdered By: Dr. Liriano on 05-19-2022 ALP [Catalytic activity/Vol] 63 U/L 45-117 [facility] ALT [Catalytic activity/Vol] 33 U/L 13-56 [facility] CO2 [Moles/Vol] 27.0 mmol/L 21.0-32.0 [facility] Globulin (S) [Mass/Vol] 3.4 g/dL 2.2-4.2 [facility] Urea nitrogen/Creatinine [Mass ratio] 17.3 mg/mg 10-20 [facility] Laboratory - Hematology and Cell countsOrdered By: Dr. Liriano on 05-19-2022 Erythrocyte distribution width (RBC) [Entitic vol] 47.7 fL 35.1-43.9 [facility] Erythrocyte distribution width (RBC) [Ratio] 13.2 % 11.6-14.6 [facility] Immature granulocytes/100 WBC (Bld) 0.200 % 0.0-0.9 [facility] Comment on above: IG% - Immature Granu locytes (promyelocytes, myelocytes and metamyelocytes) > 1% indicates that a LEFT SHIFT is Present. MCH (RBC) [Entitic mass] 32.8 pg 27.0-32.0 [facility] Nucleated RBC/100 WBC (Bld) [Ratio] 0 % 0-5 [facility] MCHC Auto (RBC) [Mass/Vol]Or dered By: Dr. Liriano on 05-19-2022 MCHC (RBC) [Mass/Vol] 33.0 g/dL 32-36 [facility] No Panel InformationOrdered By: Dr. Liriano on 05-19-2022 Estimated GFR (MDRD) Amer 86 mL/min >60 [facility] Comment on above: GFR Calc Estimated GFR (MDRD) Non-Af Amer 71 mL/min >60 [facility] Comment on above: Non- GFR Calc Platelets bldOrdered By: Dr. Liriano on 05-19-2022 Platelets (Bld) [#/Vol] 271 10*3/uL 150-450 [facility] Serum or plasma albumin chey urement (mass/volume)Ordered By: Dr. Liriano on 05-19-2022 Albumin [Mass/Vol] 4.0 g/dL 3.2-5.0 [facility] Serum or plasma albumin/glob ulin mass ratioOrdered By: Dr. Liriano on 05-19-2022 Albumin/Globulin [Mass ratio] 1.2 {ratio} 0.9-2.4 [facility] Serum or plasma calcium chey urement (mass/volume)Ordered By: Dr. Liriano on 05-19-2022 Calcium [Mass/Vol] 8.9 mg/dL 8.5-10.1 [facility] Serum or plasma creatinine m easurement (mass/volume)Ordered By: Dr. Liriano on 05-19-2022 Creatinine [Mass/Vol] 0.92 mg/dL 0.55-1.02 [facility] Comment on above: The validity of the calculated GFR & GFRAA in patients over 70 years has not been determined. Clinical correlation is essential. Serum or plasma urea nitroge n measurement (mass/volume)Ordered By: Dr. Liriano on 05-19-2022 Urea nitrogen [Mass/Vol] 16 mg/dL 7-18 [facility] Thin prep Papanicolaou smear with manual screeningOrdered By: Dr. Liriano on 05-19-2022 Thin prep Papanicolaou smear with manual screening 18 U/L 15-37 [facility] Thin prep Papanicolaou smear with manual screening 9 5-15 [facility] .Auto Diffon 02-19-2022 Basophil, Absolute 0.0 10 3/mcL Normal 0.0-0.3 [facility] ([place]) Comment on above: Performed By: #### C MP, GFR #### [address] [address] Eosinophil, Absolute 0.0 10 3/mcL Normal 0.0-0.7 [facility] ([place]) Comment on above: Performed By: #### C MP, GFR #### [address] [address] Lymphocyte, Absolute 2.2 10 3/mcL Normal 0.9-4.3 [facility] ([place]) Comment on above: Performed By: #### C MP, GFR #### [address] [address] Monocyte, Absolute 0.4 10 3/mcL Normal 0.1-1.4 [facility] ([place]) Comment on above: Performed By: #### C MP, GFR #### [address] [address] .Auto DiffOrdered By: SYSTEM SYSTEM on 02-19-2022 Basophils/100 WBC (Bld) 0.5 % Normal 0.0-2.5 [facility] Comment on above: Performed By: #### C MP, GFR #### [address] [address] Eosinophils/100 WBC (Bld) 0.7 % Normal 0.0-6.0 [facility] Comment on above: Performed By: #### C MP, GFR #### [address] [address] Lymphocytes/100 WBC (Bld) 33.6 % Normal 20.0-40.0 [facility] Comment on above: Performed By: #### C MP, GFR #### [place] [id number] [place] [address] 93089 Monocytes/100 WBC (Bld) 5.7 % Normal 2.0-13.0 [facility] Comment on above: Performed By: #### C MP, GFR #### [address] [address] Neutrophils/100 WBC (Bld) 59.5 % Normal 50.0-75.0 [facility] Workflow SS Comment on above: Performed By: #### C MP, GFR #### [address] [address] .GFRon 02-19-2022 GFR Non- >60 Normal [facility] ([place]) Comment on above: Result Comment: GFR Population [...] Performed By: #### C MP, GFR #### [address] [address] GFR >60 Normal [facility] ([place]) Comment on above: Result Comment: GFR Population [...] Performed By: #### C MP, GFR #### [place] [address] .NEUABSon 02-19-2022 Neutrophil, Absolute 3.9 10 3/mcL Normal 2.3-8.1 [facility] ([place]) Comment on above: Performed By: #### C MP, GFR #### [place] [address] CBCOrdered By: SYSTEM SYSTEM on 02-19-2022 Erythrocyte distribution width (RBC) [Ratio] 13.7 % Normal 11.5-15.5 AH Workflow SS Comment on above: Performed By: #### C MP, GFR #### [place] [address] Hematocrit (Bld) [Volume fraction] 39.6 % Normal 34.0-46.0 AH Workflow SS Comment on above: Performed By: #### C MP, GFR #### [place] [address] MCH (RBC) [Entitic mass] 32.0 pg Normal 27.0-33.0 AH Workflow SS Comment on above: Performed By: #### C MP, GFR #### [place] [address] MCHC 33.6 G/dL Normal 32.0-36.0 AH Workflow SS Comment on above: Performed By: #### C MP, GFR #### [place] [address] MCV (RBC) [Entitic vol] 95.1 fL Normal 80.0-99.0 A H Workflow SS Comment on above: Performed By: #### C MP, GFR #### [place] [address] Platelet mean volume (Bld) [Entitic vol] 8.0 fL Normal 6.6-10.5 AH Workflow SS Comment on above: Performed By: #### C MP, GFR #### [place] [address] CBCon 02-19-2022 Hgb 13.3 G/dL Normal 12.0-16.0 [facility] ([place]) Comment on above: Performed By: #### C MP, GFR #### [address] [address] Platelet 257 10 3/mcL Normal 150-450 [facility] ([place] Comment on above: Performed By: #### C MP, GFR #### [address] [address] RBC 4.16 10 6/mcL Normal 4.10-5.30 [facility] ([place] Comment on above: Performed By: #### C MP, GFR #### [address] [address] WBC 6.6 10 3/mcL Normal 4.5-10.8 [facility] ([place] Comment on above: Performed By: #### C MP, GFR #### [place] [id number] CMPon 02-19-2022 Albumin Level 4.1 G/dL Normal 3.2-4.8 [facility] ([place] Comment on above: Performed By: #### C MP, GFR #### [address] [address] ALT [Catalytic activity/Vol] 25 U/L Normal 10-49 [facility] ([place] Comment on above: Performed By: #### C MP, GFR #### [address] [address] Bili Total 0.30 mg/dL Normal 0.20-1.20 [facility] ([place] Comment on above: Result Comment: Use of this assay is not recommended for patients undergoing treatment with eltrombopag due to the potential for falsely elevated results. Performed By: #### C MP, GFR #### [address] [address] BUN/Creatinine Ratio 15.9 ratio Normal 10.0-22.0 [facility] ([place] Comment on above: Performed By: #### C MP, GFR #### [place] [id number] Total Protein 7.3 G/dL Normal 5.7-8.2 [facility] ([place] Comment on above: Result Comment: No te - New Reference Range in effect 19 Performed By: #### C MP, GFR #### [address] [address] CMPOrdered By: SYSTEM SYSTEM on 02-19-2022 Albumin/Globulin [Mass ratio] 1.3 {ratio} Normal 0.9-1.6 AH ADM SS Comment on above: Performed By: #### C MP, GFR #### [address] [address] ALP [Catalytic activity/Vol] 81 U/L Normal 38-126 AH ADM SS Comment on above: Performed By: #### C MP, GFR #### [address] [address] AST [Catalytic activity/Vol] 19 U/L Normal 8-34 AH ADM SS Comment on above: Performed By: #### C MP, GFR #### [address] [address] Calcium [Mass/Vol] 9.5 mg/dL Normal 8.7-10.4 AH ADM SS Comment on above: Performed By: #### C MP, GFR #### [address] [address] Chloride [Moles/Vol] 106 mmol/L Normal 98-110 AH A DM SS Comment on above: Performed By: #### C MP, GFR #### [address] [address] CO2 [Moles/Vol] 27 mmol/L Normal 22-32 AH ADM SS Comment on above: Performed By: #### C MP, GFR #### [address] [address] Creatinine [Mass/Vol] 0.88 mg/dL Normal 0.50-1.20 AH ADM SS Comment on above: Performed By: #### C MP, GFR #### [address] [address] Electrolyte Balance 6.0 mEq/L Normal 4.0-15.0 AH AD M SS Comment on above: Performed By: #### C MP, GFR #### [place] [phone] Globulin 3.2 G/dL Normal 1.5-3.8 ADM SS Comment on above: Performed By: #### C MP, GFR #### [address] [address] Glucose [Mass/Vol] 127 mg/dL High 70-110 ADM SS Comment on above: Performed By: #### C MP, GFR #### [address] [address] Potassium [Moles/Vol] 4.1 mmol/L Normal 3.5-5.0 ADM SS Comment on above: Performed By: #### C MP, GFR #### [address] [address] Sodium [Moles/Vol] 139 mmol/L Normal 136-145 ADM SS Comment on above: Performed By: #### C MP, GFR #### [address] [address] Urea nitrogen [Mass/Vol] 14.0 mg/dL Normal 8.0-22.0 ADM SS Comment on above: Performed By: #### C MP, GFR #### [address] [address] LABORATORYOrdered By: SYSTEM SYSTEM on 02-19-2022 Albumin [...] U SE ONLY*on 01-31-2021 Interpretation TBNEG Normal [facility] Reference Lab Comment on above: Performed By: #### I NTPGP #### [facility] Immuno [facility] [address] [place] [phone] Mitogen minus Nil >10 Normal [facility] Reference Lab Comment on above: Performed By: #### I NTPGP #### [facility] Immuno [facility] [address] [place] [phone] TB NIL 0.03 IU/mL Normal [facility] Comment on above: Performed By: #### I NTPGP #### [facility] [address] [place] [phone] TB Result NEGAT Normal Negative [facility] Reference [facility] Comment on above: Performed By: #### I NTPGP #### [facility] Immun[facility] [address] [place] [address] TB1 Ag minus Nil 0.00 IU/mL Normal <0.35 [facility] Reference Lab Comment on above: Performed By: #### I NTPGP #### [facility] Immuno Assay [address] [place] [id number] TB2 Ag minus Nil 0.01 IU/mL Normal <0.35 [facility] Reference Lab Comment on above: Performed By: #### I NTPGP #### [facility] Immuno Assay [address] [place] [address] ZOE by IFAon 01-20-2021 ZOE Pattern ANANOT Normal [facility] Reference Lab Comment on above: Performed By: #### A HBSQ, HBSAG, AHCV1B, RF #### [facility] Routine [facility] [address] [place] [id number] #### ANAIFS, CCP #### [facility] Immuno Assay [address] [place] [id number] ZOE Titer Normal Negative [facility] Reference Lab Comment on above: Result Comment: Nega tive Normal range : negatie at <1:80 serum dilution. Performed By: #### A HBSQ, HBSAG, AHCV1B, RF #### [facility] [address] [place] [phone] #### ANAIFS, CCP #### [facility] [address] [place] [phone] Nuclear Ab IF (S) [Titer] Negative Normal Negative [facility] Reference [facility] Comment on above: Performed By: #### A HBSQ, HBSAG, AHCV1B, RF #### [facility] [address] [place] [phone] #### ANAIFS, CCP #### [facility] [address] [place], [place] [address] CCP Antibody, IgGon 01-21-20 21 CCP Antibody, IgG <15 Normal <20 [facility] Reference Lab Comment on above: Performed By: #### A HBSQ, HBSAG, AHCV1B, RF #### [facility] Routine Lab [address] [place], [place] [address] #### ANAIFS, CCP #### [facility] [address] [place], [place] [address] Hep C Ab IA w/Confon 021 Hepatitis C Ab IA NEGAT Normal Negative [facility] Reference Lab Comment on above: Performed By: #### A HBSQ, HBSAG, AHCV1B, RF #### [facility] Routine Lab [address] [place] [address] #### ANAIFS, CCP #### [facility] Immuno Assay [address] [place] [id number] HepB SurfaceAb,Quanton 01-20 HepB SurfaceAb,Quant <8.00 Normal <8.00 [facility] Reference Lab Comment on above: Performed By: #### A HBSQ, HBSAG, AHCV1B, RF #### [facility] Routine Lab [address] [place] [address] #### ANAIFS, CCP #### [facility] [address] [place] [id number] Hepatitis B Surf. Agon 01-20 Hepatitis B Surf. Ag NEGAT Normal Negative [facility] Reference Lab Comment on above: Performed By: #### A HBSQ, HBSAG, AHCV1B, RF #### [facility] Routine Lab [address] [place], [place] [address] #### ANAIFS, CCP #### [facility] [address] [place], [place] [address] Rheumatoid Factoron 01-20-20 21 Rheumatoid Factor 14 IU/mL Normal <16 [facility] Reference Lab Comment on above: Performed By: #### A HBSQ, HBSAG, AHCV1B, RF #### [facility] Routine Lab [address] [place] [phone] #### ANAIFS, CCP #### [facility] Immuno Assay [address] [place] [address] Arash 10-31-2020 TSI <0.10 Normal <0.55 [facility] Reference Lab Comment on above: Performed By: #### H SCRP #### [facility] Routine Lab [address] [place] [phone] #### TSIGIM #### [facility] Immunology [address] [place] [phone] TSI Qualitative NEGAT Normal Negative [facility] Reference Lab Comment on above: Performed By: #### H SCRP #### [facility] Routine Lab [address] [place] [address] #### TSIGIM #### [facility] Immunology [address] [place] [phone] Ultra-sensitive CRPon 2020 UltraSens C-ReacProt 2.9 mg/L Normal <3.1 [facility] Reference Lab Comment on above: Performed By: #### H SCRP #### [facility] Routine Lab [address] [place] [address] #### TSIGIM #### [facility] Immunology [address] [place] [address] Vital Signs Date Time Vital Sign Value Performing Clinician Jeronimo jane 12-12-2024 07:20-0400 Body temperature 96.9 [degF] Coral Martinez MD Work Phone: [facility] 12-12-2024 07:20-0400 Diastolic blood pressure 67 mm[Hg] Coral Martinez MD Work Phone: [facility] 12-12-2024 07:20-0400 Heart rate 74 /min Coral Martinez MD Work Phone: [facility] 12-12-2024 07:20-0400 Respiratory rate 16 /min Coral Martinez MD Work Phone: [facility] 12-12-2024 07:20-0400 SaO2% (BldA) [Mass fraction] 100 % Coral Martinez MD Work Phone: [facility] 12-12-2024 07:20-0400 Systolic blood pressure 107 mm[Hg] Coral Martinez MD Work Phone: [facility] 12-12-2024 05:59-0400 Body height 154.94 cm Coral Martinez MD Work Phone: [facility] 12-12-2024 05:59-0400 Body mass index (BMI) [Ratio] 38.7 kg/m2 Coral Martinez MD Work Phone: [facility] 12-12-2024 05:59-0400 Body weight 92.98 kg Coral Martinez MD Work Phone: [facility] 10-14-2024 21:50-0400 Body temperature 98.1 [degF] Jennifer Roland [employer]UDIES PROFESSOR-C Work Phone: [facility] 10-14-2024 21:50-0400 Diastolic blood pressure 61 mm[Hg] Jennifer Roland [employer] STUDIES PROFESSOR-C Work Phone: [facility] 10-14-2024 21:50-0400 Heart rate 75 /min Jennifer Roland [employer]UD[employer] PROFESSOR-C Work Phone: [facility] 10-14-2024 21:50-0400 Respiratory rate 16 /min Jennifer Roland [employer]UD[employer] PROFESSOR-C Work Phone: [facility] 10-14-2024 21:50-0400 SaO2% (BldA) [Mass fraction] 99 % Jennifer Roland [employer]UD[employer] PROFESSOR-C Work Phone: [facility] 10-14-2024 21:50-0400 Systolic blood pressure 120 mm[Hg] Jennifer Roland [employer]UDIES PROFESSOR-C Work Phone: [facility] 10-14-2024 17:43-0400 Body height 154.94 cm Jennifer Roland [employer]UD[employer] PROFESSOR-C Work Phone: [facility] 10-14-2024 17:43-0400 Body mass index (BMI) [Ratio] 40.7 kg/m2 Jennifer Roland [employer]UDIES PROFESSOR-C Work Phone: [facility] 10-14-2024 17:43-0400 Body weight 97.74 kg Jennifer Roland [employer]UD[employer] PROFESSOR-C Work Phone: [facility] 05-25-2022 09:30-0500 Diastolic blood pressure 70 mm[Hg] [facility] 05-25-2022 09:30-0500 Heart rate 74 /min [facility] 05-25-2022 09:30-0500 Respiratory rate 16 /min [facility] 05-25-2022 09:30-0500 SaO2% (BldA) [Mass fraction] 95 % [facility] 05-25-2022 09:30-0500 Systolic blood pressure 96 mm[Hg] [facility] 05-25-2022 08:52-0500 Body temperature 98.5 [degF] [facility] 05-25-2022 08:30-0500 Inhaled oxygen flow rate 3 L/min [facility] 05-25-2022 06:40-0500 Body height 154.94 cm [facility] 05-25-2022 06:40-0500 Body mass index (BMI) [Ratio] 44.1 kg/m2 [facility] 05-25-2022 06:40-0500 Body weight 106 kg [facility] Encounters Encounter Date Encounter Type Care Provider Facility Start: 01-16-2025 ambulatory Misael Friend Facility :[facility] Start: 12-12-2024 ambulatory Misael Friend Facility :[facility] Start: 12-12-2024 Non-patient / Non-visit Misael Moore DO -[facility] Start: 12-12-2024 End: 12-12-2024 Admission to same day surgery center Misael Moore DO -Endoscopy Work Phone: Start: 12-12-2024 End: 12-12-2024 ambulatory Coral Martinez MD Work Phone: -Endoscopy Start: 11-13-2024 End: 11-13-2024 ambulatory Coral Martinez MD Work Phone: -[facility] [place] Start: 11-13-2024 End: 11-13-[address] Clarice Liriano MD -[facility] Work Phone: Start: 11-13-2024 End: 11-13-2024 ambulatory Clarice Liriano Facility:[facility] Start: 10-20-2024 End: 10-20-2024 ambulatory Coral Martinez MD Work Phone: [facility] Work Phone: Start: 10-20-2024 End: 10-20-2024 Patient encounter procedure Sheila BAILEY -[facility] [place] [facility] Work Phone: Start: 10-20-2024 End: 10-20-2024 ambulatory Sheila Ray Facility:[facility] Start: 10-17-2024 End: 10-17-2024 Patient encounter procedure Sheila BAILEY -[facility] Work Phone: Start: 10-17-2024 End: 10-17-2024 ambulatory Jennifer Roland NP-C Work Phone: [facility] Work Phone: Start: 10-17-2024 End: 10-17-2024 ambulatory Sheila Ray Facility:[facility] Start: 10-14-2024 End: 10-14-2024 Emergency department patient visit Jennifer Roland NP-C Work Phone: -Emergency Department Work Phone: Start: 09-26-2024 End: 09-26-[address] Clarice Liriano MD -Ultrasound [facility] Work Phone: Start: 09-26-2024 End: 09-26-2024 ambulatory Clarice Liriano Facility:[facility] Start: 09-13-2024 End: 09-13-2024 ambulatory Jennifer Roland A[employer] STUDIES PROFESSOR-C Work Phone: [facility] Work Phone: Start: 09-13-2024 End: 09-13-[address] Clarice Liriano MD -Laboratory, [place] Work Phone: Start: 09-13-2024 End: 09-13-2024 ambulatory Coral Martinez Facility:[facility] Start: 07-22-2024 End: 07-22-2024 ambulatory Jennifer Roland A[employer]UDIES PROFESSOR-C Work Phone: [facility] Work Phone: Start: 07-22-2024 End: 07-22-[address] Coral Martinez MD -Laboratory Work Phone: Start: 07-22-2024 End: 07-22-2024 ambulatory Coral Martinez Facility:[facility] Start: 06-21-2024 End: 06-21-[address] Clarice Liriano MD -Labor[facility], [place] Work Phone: Start: 06-21-2024 End: 06-21-2024 ambulatory Jennifer Roland NP Facility:[facility] Start: 06-12-2024 End: 06-13-2024 ambulatory JENNIFER ECKERT [facility] Start: 03-21-2024 End: 03-21-2024 ambulatory Jennifer Roland NP Facility:[facility] Start: 02-09-2024 End: 02-10-2024 ambulatory [facility]ER ECKERT [facility] Start: 01-06-2024 End: 01-06-2024 ambulatory CLARICE LIRIANO [facility] Start: 12-01-2023 End: 12-01-2023 [facility] Start: 07-15-2023 End: 07-15-2023 [facility] Start: 01-19-2023 End: 01-19-[address] CLARICE LIRIANO MD [facility] Start: 05-25-2022 End: 05-25-2022 Admission to same day surgery center [facility] Start: 05-19-2022 End: 05-19-2022 ambulatory [facility] Work Phone: Start: 05-19-2022 End: 05-19-[address] [facility] Start: 02-19-2022 End: 02-20-[address] CLARICE LIRIANO MD. Facility:[facility] Start: 02-19-2022 End: 02-19-[address] CLARICE LIRIANO MD [facility] Procedures Date Procedure Procedure Detail Performing Clinician Start: 12-12-2024 Colonoscopy Coral brannon MD Work Phone: Start: 10-14-2024 End: 10-14-2024 Iadna-dna/rna gi pthgn multiplex probe tq 6-11 Jennifer Roland [employer]UDIES PROFESSOR-C Work Phone: Start: 10-14-2024 Computed tomography of abdomen and pelvis with intravenous contrast Jennifer Roland A[employer]AN STUDIES PROFESSOR-C Work Phone: Start: 10-14-2024 Estimated creatinine clearance Jennifer Roland [employer] STUDIES PROFESSOR-C Work Phone: Start: 10-14-2024 Clostridium difficil e detection Jennifer Roland A[employer]AN STUDIES PROFESSOR-C Work Phone: Start: 10-14-2024 Nucleic acid assay Jake [facility] Work Phone: Start: 09-26-2024 Ultrasonography of abdomen Jennifer [facility] Work Phone: Start: 07-22-2024 Vitamin D, 25-hydrox y measurement Jennifer Roland NP-C Work Phone: Comment on above: Vitamin D StatusDefi ciency: <20 ng/mL (50nmol/L)Insufficiency: 20-30 ng/mL (50-75 nmol/L)Sufficiency: 30-100 ng/mL (75-250 nmol/L)Toxicity: >100 ng/mL (>250 nmol/L) Start: 06-21-2024 Measurement of renal function Jennifer Roland NP-C Work Phone: Comment on above: GFR Calc Start: 05-25-2022 Laparoscopic salpingectomy Plan of Treatment Date Care Activity Detail Author Start: 12-12-2024 Patient discharge [facility] Start: 10-20-2024 Protein measurement [facility] Start: 10-14-2024 [facility] Start: 10-14-2024 Enteric precautions [facility] Start: 05-25-2022 Introduction of urin pb catheter [facility] Start: 05-25-2022 Patient discharge [facility] Start: 05-25-2022 Ambulation therapy management [facility] Start: 05-25-2022 Continuous pulse oximetry [facility] Start: 05-25-2022 Elevation of head of bed [facility] Start: 05-25-2022 Incentive spirometry [facility] Start: 05-25-2022 Measuring intake and output [facility] Start: 05-25-2022 Notification of physician [facility] Start: 05-25-2022 End: 05-25-2022 Oxygen therapy [facility] Start: 05-25-2022 Patient education [facility] Start: 05-25-2022 Taking patient vital signs [facility] Start: 05-25-2022 Wound care [facility] Start: 05-25-2022 [facility] CBC W Auto Different ial panel - Blood [facility] Patient Education ED Diarrhea, U nknown Cause [facility] Work Phone: Patient referral [facility] Work Phone: Protein measurement [facility] Payers Date Payer Category Payer Self-pay 2022 Unknown [id number] 2022 Unknown [id number] 1980 Unknown [id number] 2.16.8 [id number] 1980 Unknown [id number] 2.16.8 40.1.714493.3.579.2.651 1980 Unknown [id number] 2.16.8 40.1.295388.3.579.2.651 1980 Unknown [id number] 2.16.8 40.1.861361.3.579.2.651 1980 Unknown [id number] 2.16.8 40.1.189450.3.579.2.651 1980 Unknown [id number] 2.16.8 40.1.155508.3.579.2.651 Unknown [id number] Unknown [id number] 2.16.8 40.1.406423.3.579.2.462 Unknown [id number] 2.16.8 40.1.845976.3.579.2.462 Unknown [id number] 2.16.8 40.1.268115.3.579.2.462 Unknown [id number] 2.16.8 40.1.695086.3.579.2.462 Unknown [id number] 2.16.8 40.1.732669.3.579.2.462 Unknown [id number] 2.16.8 40.1.330507.3.579.2.462 Unknown [id number] 2.16.8 40.1.386030.3.579.2.462 Unknown [id number] 2.16.8 40.1.087750.3.579.2.462 Unknown [id number] 2.16.8 40.1.730004.3.579.2.462 Unknown [id number] 2.16.8 40.1.701921.3.579.2.462 Unknown [id number] 2.16.8 40.1.569075.3.579.2.462 Unknown [id number] 2.16.8 40.1.384981.3.579.2.462 Unknown [id number] 2.16.8 40.1.376065.3.579.2.462 Social History Date Type Detail Facility Tobacco smoking status [facility]: [facility]19-2022 [facility] Start: 1980 Sex Assigned At Female [facility] Start: 05-19-2022 End: 12-11-2024 Tobacco smoking status NHIS Ex-smoker (finding) [facility] Start: 07-29-2024 Sex Female (finding) [facility] Not [facility] Goals Date Patient Goal Desired Activity /State Mental Status Date Assessment Result Facility 12-12-2024 Cognitive function Voice/Name [facility] Work Phone: 05-25-2022 Cognitive function Voice/Name [facility] Work Phone: Clinical Notes 10-14-2024 to 12-12-2024 Note Date & Type Note Facility 12-12-2024 Consult note [facility] 12-12-2024 Procedure note [facility] 12-12-2024 Procedure note [facility] 12-12-2024 Consult note [facility] 12-12-2024 History and physi lupe note [facility] 12-12-2024 Note [facility] Medical Records Department [address] [place] [address] History Physical Exam 12/12/24 0640 MR#: [id number] Acct: [id number] Name: NGOC KAUFFMAN Rep #: [id number] : 1980 44 From: Misael Moore DO PCP: Dr. Coral Martinez MD Status:[facility] Location: [place] [address] HPI - General General Date of Admission: 12/12/24 Date of Service: 12/12/24 Chief Complaint: Lower GI bleed HPI Narrative NGOC KAUFFMAN, is a 44 F who presents with the Chief Complaint: bleeding with bowel movement [facility] ED 10.14.24 with abdominal pain and [...] Last colonoscopy was in 2021 with diverticula. [facility] Medical History Fatty liver Anxiety Depression Thyroid disease Murmur History of echocardiogram Wears contact lenses Wears glasses History of [...] mg capsule,delayed 60 mg PO DAILY 05/19/22 12/12/24 H istory release (Cymbalta) ferrous sulfate 28 mg iron tablet 28 mg PO DAILY 05/19/22 12/08/24 History fluticasone furoate 200 1 inh inhalation DAILY 05/19/22 History mcg-vilanterol 25 mcg/dose inhalation powder folic acid 1 mg tablet 2 mg PO DAILY 05/19/22 Unknown His tory hydroxychloroquine 200 mg tablet 200 mg PO BID 05/19/22 Unknown His tory leucovorin calcium 15 mg tablet 15 mg PO FR 05/19/22 Unknown Histo ry Held on 12/11/24. Instructions: per pt methotrexate sodium 2.5 mg tablet 20 mg PO TH 05/19/22 Unknown Hist ory multivitamin 1 tab PO DAILY 05/19/22 Unknown Hi story pantoprazole 40 mg tablet,delayed 40 mg PO DAILY 05/19/22 12/12/24 History release prednisone 10 mg tablet 10 mg PO PRN PRN RHEUMATOID Unknown History ARTHRITIS ondansetron 4 mg disintegrating 4 mg PO Q8H PRN PRN Nausea 3 days 10/14/24 Unknown Rx tablet #10 tabs tirzepatide (weight loss) 5 mg/0.5 10 mg subcut QWEEK 10/17/2411/08 History mL subcutaneous pen injector (Zepbound) levothyroxine 137 mcg tablet 137 mcg PO DAILY 12/11/24 12/12/24 History (Synthroid) linaclotide 290 mcg capsule 290 mcg PO DAILY 12/11/24 Unknown History (Linzess) prazosin 1 mg capsule 1 mg PO QHS 12/11/24 Unknown Histo ry Allergy/AdvReac Type Severity Reaction Status Date / Time amoxicillin AdvReac Other Verified 12/12/24 05:55 Surgical History H/O bilateral salpingectomy H/O sinus surgery Myringotomy tube status Hx of lymph node biopsy Hx of tonsillectomy Social History household members: spouse housing: house Smoking Status: Former smoker ROS Constitutional Constitutional: Denies fatigue, fever(s), poor appetite, weight gain or weight loss Gastrointestinal Gastrointestinal: Denies belching, bloating, change in bowel habits, change in stool character, chewing difficulty, coffee ground emesis, constipation, cramping, diarrhea, dyspepsia, dysphagia, early satiety, excessive flatus, fecal incontinence, heartburn, hematemesis, hematochezia, hemorrhoids, loose stools, melena, nausea, odynophagia, rectal bleeding, tenesmus, vomiting or weight changes Vital Signs Vital Signs Vital Signs: 12/12/24 05:59 12/12/24 05:59 Temperature 98 F Temperature Source Temporal Pulse Rate 75 Re (more content not included)... [facility] 10-17-2024 Evaluation note Diagnosis Onset Date Resolution Bright red blood per rectum acute October 17, 2024 6:55am Diarrhea acute October 17 6:55am [facility] Work Phone: 1(292) 817-701606-10-2025 Evaluation note* Diagnosis Onset Date Resolution Status Admit Date Bright red blood per rectum acute October 17, 2024 6:55am Diarrhea acute October 17 6:55am Bright red blood per rectum acute December 12, 2024 5:21am Diarrhea acute December 12 5:21am [facility] Work Phone: 1(957) 233-711006-07-2025 Discharge summary [facility] Medical Records Department [address] [place] [id number] Emergency Department Summary 10/14/24 MR#: [id number] Acct: [id number] Name: NGOC KAUFFMAN Rep #:[id number] : 1980 44 From: Sam Mcfarland PCP: Dr. Coral Martinez MD Status:REG ER Location: ED HPI History of Present Illness Chief Complaint: GI Bleed [facility] Medical History Wears contact lenses Wears glasses [...] albuterol sulfate 90 mcg/actuation 2 inh inhalation MA N PRN COPD 05/19/22 0 05/25/22 History [...] History obtained from others: none Consults: none [facility] Narrative: The patient was initially tachycardic [...] Discharge home This note was generated with Tagkast dictation software. It may contain incorrect words, [...] 84.9 H Lymph % (Auto) 7.8 L Oxford % (Auto) 6.3 Eos % (Auto) 0.2 [...] Clarity Cloudy Urine pH 5.0 Ur Specific Scammon 1.030 Urine Protein 30 H Urine Glucose [...] abscess, ascites or free air. Reading Location: [facility] Discharge Plan Triage Chief Complaint: GI Bleed [...] MD [Primary Care Provider] - Print Language: Frisian What to do if you have Problems For any increased pain, shortness of breath, bleeding, nausea or vomiting, chestpain, or any unexpected problems, contact your Primary Care Provider. Call [facility] ([phone]) or report tothe closest Emergency Room. Call 911 if necessary. 10/14/242151 Cosigner Signature (if applicable): CC: Dr. Coral Martinez MD ~ Signed [facility]06-07-2025 Radiology Diagnostic study note [facility] Imaging Services [address] [place], [place] [id number] Abdomen/Pelvis W IV Cont ONLY MR#: [id number] Acct: [id number] Name: NGOC KAUFFMAN Rep #: [id number] : 1980 F 44 From: Serena Singh MD PCP: Dr. Coral Martinez MD Status: REG ER Study:Abdomen/Pelvis W IV Cont ONLY Date of E xam: 10/14/24 Exam# [id number] Ordering Dr: Mara Combs DO PROCEDURE: ABDOMEN/PELVIS [...] abscess, ascites or free air. Reading Location: [facility] CC: Dr. Coral Martinez MD; Dr. Sam Combs DO ~ Marble Mason: Signed [facility]06-07-2025 Discharge summary Author Sam Combs [facility] Note Date/Time October 14, 2024 9:52p m [facility] Medical Records Department [address] [place] [address] Emergency Department Summary 10/14/24 MR#: [id number] Acct: [id number] Name: NGOC KAUFFMAN Rep #:[id number] : 1980 44 From: Sam Mcfarland PCP: Dr. Coral Martinez MD Status:REG ER Location: ED HPI History of Present Illness Chief Complaint: GI Bleed [facility] Medical History Wears contact lenses Wears glasses [...] albuterol sulfate 90 mcg/actuation 2 inh inhalation MA N PRN COPD 05/19/22 0 05/25/22 History [...] History obtained from others: none Consults: none [facility] Narrative: The patient was initially tachycardic [...] Discharge home This note was generated with Tagkast dictation software. It may contain incorrect words, [...] 84.9 H Lymph % (Auto) 7.8 L Oxford % (Auto) 6.3 Eos % (Auto) 0.2 [...] Clarity Cloudy Urine pH 5.0 Ur Specific Scammon 1.030 Urine Protein 30 H Urine Glucose [...] abscess, ascites or free air. Reading Location: [facility] Discharge Plan Triage Chief Complaint: GI Bleed [...] MD [Primary Care Provider] - Print Language: Frisian What to do if you have Problems For any increased pain, shortness of breath, bleeding, nausea or vomiting, chestpain, or any unexpected problems, contact your Primary Care Provider. Call [facility] ([phone]) or report to the closest Emergency Room. Call 911 if necessary. 10/14/242151 <Electronically signed by Sam Combs DO> Cosigner Signature (if applicable): CC: Dr. Coral Martinez MD ~ Signed [facility] Work Phone: Consult note Author Andrew Cassidy [facility] Note Date/Time December 12, 2024 6:4 5am [facility] Medical Records Department [address] [place] [address] Pre-Anesthesia Evaluation 12/12/24 0644 MR#: [id number] Acct: [id number] Name: NGOC KAUFFMAN Rep #:[id number] : 1980 44 From: Andrew ZAMUDIO PCP: Dr. Coral Martinez MD Status:REG SD C Y Race: C Location: [place] [address] ASA Classification* ASA Classification ASA Classification: 2 Assessment & Plan Anesthesia* Anesthesia Assessment Anesthesia Assessment: Discussed sedation and/or anesthesia options, risks, benefits, and alternatives with patient/parents/legal guardian/POA. Questions invited. The patient/parents/legal guardian/POA seems to understand and agrees to proceedwith anesthesia plan. Reviewed the physical assessment, medical history, allergy history and patient home medications list prior to surgery/procedure/anesthetic and documented any changes. Performed airway and anesthesia risk assessments. Anesthesia Type Anesthesia Type: MAC Anesthesia Focused Assessment* Temperature: 98 F Pulse Rate: 75 Blood Pressure: 104/73 Respiratory Rate: 16 Pulse Ox: 98 Airway Assessment Mouth opens: >3 cm Mallampati Score: II Labs Anesthesia Preop lab: CBC WBC 7.0 K/mm3 (4.4-11.0) 11/13/24 07:21 11/13/24 RBC 3.93 M/mm3 (4.2-5.4) L 11/13/24 07:21 11/13/24 Hgb 12.6 g/dL (12.0-15.0) 11/13/24 07:21 11/13/24 Hct 37.8 % (37-47) 11/13/24 07:21 11/13/24 Plt Count 233 K/mm3 (150-450) 11/13/24 07:21 11/13/24 CHEMISTRY Potassium 4.2 mmol/L (3.3-5.1) 11/13/24 07:21 11/13/24 Sodium 137 mmol/L (133-145) 11/13/24 07:21 11/13/24 BUN 9 mg/dL (4-19) 11/13/24 07:21 11/13/24 Creatinine 0.84 mg/dL (0.70-1.20) 11/13/24 07:21 11/13/24 Glucose 96 mg/dL (70-99) 11/13/24 07:21 11/13/24 TSH 0.289 uIU/mL (0.300-4.200) L 07/22/24 08:14 COAG Urine Test Negative Negative 10/14/24 18:18 10/14/24 Pre-Assessment Diagnosis/Proposed Procedure Planned Operative Procedure(s): COLONOSCOPY Anesthesia History 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 When Was Last Pacemaker Check QUESTION #4 FULL TEXT: You/Your Family Experience fever (hyperthermia) with Anesthesia Last Oral Intake Last Oral intake: Last Oral Intake NPO since 03:00 12/12/24 05:59 Meds taken in AM with sips of water? 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 Female Yes 12/11/24 08:24 HX of Motion Sickness Yes 12/11/24 08:24 HX of N/V After Surgery Yes 12/11/24 08:24 Non-Smoker Yes 12/11/24 08:24 Duration of Surgery greater No 12/11/24 08:24 than 60 minutes Number of Risk Factors 4 12/11/24 08:24 PONV Score Severe Risk 12/11/24 08:24 Height & Weight Height & Weight: Anesthesia: Height & Weight Height 5 ft 1 in 12/12/24 05:59 Weight: 92.986 kg 12/12/24 05:59 Body Mass Index (BMI) 38.7 12/12/24 05:59 Respiratory Assessment Respiratory Assessment - rate supervisor: Respiratory Tract Infection Hx - rate supervisor Hx Respiratory Tract Infection No 12/11/24 08:24 STOP Sleep Apnea STOP Sleep Apnea - rate supervisor: STOP Sleep Apnea - rate supervisor Hx Hypertension No 12/11/24 08:24 Hx Sleep Apnea Yes 12/11/24 08:24 CPAP Yes 12/11/24 08:24 BIPAP No 12/11/24 08:24 Do you snore loudly (louder than talking or can be heard Do you often feel tired/ fatigued/ sleepy during daytime? Has anyone observed you stop breathing during sleep? STOP Results Positive 12/11/24 08:24 QUESTION #5 FULL TEXT : Do you snore loudly (louder than talking or can be heard through closed doors)? 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 Specify any problems Hx of Preganancy in last 3 No 12/11/24 08:24 Months Nurse Filling Out Transfusion [email or web address] 12/11/24 08:24 & Questions: Date: 12/11/24 12/11/24 08:24 Time: 08:28 12/11/24 08:24 Patient unable to answer at this time (ie. confused, unrespo /Reproduction History /Reproductive History - rate supervisor: /Reproductive Hx- rate supervisor Hx Now No 12/11/24 08:24 Gestational Age (in weeks): EDC: Hx Hx Para Hx Section SAB No 12/11/24 08:24 Active Medications Active Medications: Current Medications Generic Name Dose Route Start Last Admin Trade Name Freq PRN Reason Stop Dose Admin Lactated Ringer's 1,000 mls @ 15 mls/hr 12/12/24 05:45 12/12/24 06:11 IV 15 mls/hr .Q48H DALJIT Administration PFSH Medical History Fatty liver Anxiety Depression Thyroid disease Murmur History of echocardiogram Wears contact lenses Wears glasses History of steroid therapy Rheumatoid arthritis Arthritis Anemia High cholesterol Migraine headache History of diverticulitis History of hiatal hernia Gastric reflux Former smoker Asthma COPD (chronic obstructive pulmonary disease) Hoarseness Chronic cough Fibromyalgia Leg cramps History of pain when walking History of edema Home Medications ?Medication ?Instructions ?Recorded ?Last Taken ?Type albuterol sulfate 90 mcg/actuation 2 inh inhalation MA N PRN COPD 05/19/22 05/25/22 History aerosol inhaler atorvastatin 10 mg tablet 10 mg PO QHS 05/19/22 Unknow n History duloxetine 60 mg capsule,delayed 60 mg PO DAILY 12/12/24 History release (Cymbalta) ferrous sulfate 28 mg iron tablet 28 mg PO DAILY 05/1912/08/24 History fluticasone furoate 200 1 inh inhalation DAILY 05/1905/25/22 History mcg-vilanterol 25 mcg/dose inhalation powder folic acid 1 mg tablet 2 mg PO DAILY 05/19/22 Unkno wn History hydroxychloroquine 200 mg tablet 200 mg PO BID 3 Unknown History leucovorin calcium 15 mg tablet 15 mg PO FR 05/19/22 U nknown History Held on 12/11/24. Instructions: per pt methotrexate sodium 2.5 mg tablet 20 mg PO TH 05/19/22 Unknown History multivitamin 1 tab PO DAILY 05/19/22 Unkn own History pantoprazole 40 mg tablet,delayed 40 mg PO DAILY 05/1912/12/24 History release prednisone 10 mg tablet 10 mg PO PRN PRN RHEUMATOID 05/19/22 Unknown History ARTHRITIS ondansetron 4 mg disintegrating 4 mg PO Q8H PRN PRN Na usea 3 days 10/14/24 Unknown Rx tablet #10 tabs tirzepatide (weight loss) 5 mg/0.5 10 mg subcut QWEEK 10/17/24 12/03/24 History mL subcutaneous pen injector (Zepbound) levothyroxine 137 mcg tablet 137 mcg PO DAILY 12/11/24 12/12/24 History (Synthroid) linaclotide 290 mcg capsule 290 mcg PO DAILY 12/11/24 Unknown History (Linzess) prazosin 1 mg capsule 1 mg PO QHS 12/11/24 Unknown History Allergy/AdvReac Type Severity Reaction Status Date / Time amoxicillin AdvReac Other Verified 12/12/24 05:55 Surgical History H/O bilateral salpingectomy H/O sinus surgery Myringotomy tube status Hx of lymph node biopsy Hx of tonsillectomy Social History household members: spouse housing: house Smoking Status: Former smoker Review of Systems (Anesthesia) ROS Narrative System reviewed and no additional complaints, except as documented. 12/12/24 0645 <Electronically signed by Andrew Cassidy CRNA> Date _ Andrew Cassidy CRNA Cosigner Signature: Date CC: ~ Signed [facility] Work Phone: Consult note Author Andrew Cassidy [facility] Note Date/Time December 12, 2024 7:5 2am [facility] Medical Records Department [address] [place] [address] Anesthesia Postop Eval I 12/12/24706 MR#: [id number] Acct: [id number] Name: NGOC KAUFFMAN Rep #:[id number] : 1980 44 From: Andrew ZAMUDIO PCP: Dr. Coral Martinez MD Status:REG SD C Y Race: C Location: [place] [address] Anesthesia: Postop Eval I Current Vital Signs Temperature: 97 F Pulse Rate: 75 Blood Pressure: 97/54 Respiratory Rate: 16 Pulse Ox: 100 Assessment Airway patent: Yes Spontaneous unlabored respirations: Yes nausea: No Vomiting: No Anesthesia Complication: No Fluid Hydration Crystalloid volume administer (ml): 100 Total IV fluid infused: 100 Progress Note Anesthesia document: Postop Eval 1 completed: Yes 12/12/24706 <Electronically signed by Andrew Cassidy CRNA> Date _ Andrew Cassidy CRNA Cosigner Signature: Date CC: ~ Signed [facility] Work Phone: Evaluation + Plan note No data available for this section [facility] Evaluation noteNo assessment information available [facility] Work Phone: Evaluation note* Diagnosis Onset Date Resolution Status Admit Date Bright red blood per rectum acute October 17, 2024 6:55am [facility] Work Phone: History and physical note Author Misael Friend [facility] Note Date/Time December 12, 2024 6:4 1am [facility] Medical Records Department [address] [place] [address] History & Physical Exam 12/12/24639 MR#: [id number] Acct: [id number] Name: NGOC KAUFFMAN Rep #:[id number] : 1980 44 From: Misael Moore DO PCP: Dr. Coral Martinez MD Status:REG SD C Location: [place] [address] HPI - General General Date of Admission: 12/12/24 Date of Service: 12/12/24 Chief Complaint: Lower GI bleed HPI Narrative NGOC KAUFFMAN, is a 44 F who presents with the Chief Complaint: bleeding with bowel movement [facility] ED 10.14.24 with abdominal pain and bloody diarrhea. Hx of diverticulitis. CBCwith leukocytosis but pt on steroids. CT showing enteritis CT abd/pelvis 10.14.24 1. Long segment wall thickening, hyperenhancement and fat stranding of the proximal descending colon, which is indeterminate in etiology, and may represent enteritis or inflammatory bowel disease. Colonoscopyis recommended for further evaluation. 2. Minimal colonic diverticulosis. No intra-abdominal abscess, ascites or free air. Stool; negative for c dif and enteric pathogens OV 10.17.24 Pt continues with bleeding and loose stools. Blood is bright red and fills the bowel. This is the first time she has ever had blood in her stool likethis. She has been taking zofran as needed. She endorses hx of frequent episodesof diverticulitis treated with with cipro and flagyl. She does not take daily NSAIDs. Last colonoscopy was in 2021 with diverticula. [facility] Medical History Fatty liver Anxiety Depression Thyroid disease Murmur History of echocardiogram Wears contact lenses Wears glasses History of steroid therapy Rheumatoid arthritis Arthritis Anemia High cholesterol Migraine headache History of diverticulitis History of hiatal hernia Gastric reflux Former smoker Asthma COPD (chronic obstructive pulmonary disease) Hoarseness Chronic cough Fibromyalgia Leg cramps History of pain when walking History of edema Home Medications ?Medication ?Instructions ?Recorded ?Last Taken ?Type albuterol sulfate 90 mcg/actuation 2 inh inhalation MA N PRN COPD 05/19/22 05/25/22 History aerosol inhaler atorvastatin 10 mg tablet 10 mg PO QHS 05/19/22 Unknow n History duloxetine 60 mg capsule,delayed 60 mg PO DAILY 12/12/24 History release (Cymbalta) ferrous sulfate 28 mg iron tablet 28 mg PO DAILY 05/1912/08/24 History fluticasone furoate 200 1 inh inhalation DAILY 05/1905/25/22 History mcg-vilanterol 25 mcg/dose inhalation powder folic acid 1 mg tablet 2 mg PO DAILY 05/19/22 Unkno wn History hydroxychloroquine 200 mg tablet 200 mg PO BID 3 Unknown History leucovorin calcium 15 mg tablet 15 mg PO FR 05/19/22 U nknown History Held on 12/11/24. Instructions: per pt methotrexate sodium 2.5 mg tablet 20 mg PO TH 05/19/22 Unknown History multivitamin 1 tab PO DAILY 05/19/22 Unkn own History pantoprazole 40 mg tablet,delayed 40 mg PO DAILY 05/1912/12/24 History release prednisone 10 mg tablet 10 mg PO PRN PRN RHEUMATOID 05/19/22 Unknown History ARTHRITIS ondansetron 4 mg disintegrating 4 mg PO Q8H PRN PRN Na usea 3 days 10/14/24 Unknown Rx tablet #10 tabs tirzepatide (weight loss) 5 mg/0.5 10 mg subcut QWEEK 10/17/24 12/03/24 History mL subcutaneous pen injector (Zepbound) levothyroxine 137 mcg tablet 137 mcg PO DAILY 12/11/24 12/12/24 History (Synthroid) linaclotide 290 mcg capsule 290 mcg PO DAILY 12/11/24 Unknown History (Linzess) prazosin 1 mg capsule 1 mg PO QHS 12/11/24 Unknown History Allergy/AdvReac Type Severity Reaction Status Date / Time amoxicillin AdvReac Other Verified 12/12/24 05:55 Surgical History H/O bilateral salpingectomy H/O sinus surgery Myringotomy tube status Hx of lymph node biopsy Hx of tonsillectomy Social History household members: spouse housing: house Smoking Status: Former smoker ROS Constitutional Constitutional: Denies fatigue, fever(s), poor appetite, weight gain or weight loss Gastrointestinal Gastrointestinal: Denies belching, bloating, change in bowel habits, change in stool character, chewing difficulty, coffee ground emesis, constipation, cramping, diarrhea, dyspepsia, dysphagia, early satiety, excessive flatus, fecalincontinence, heartburn, hematemesis, hematochezia, hemorrhoids, loose stools, melena, nausea, odynophagia, rectal bleeding, tenesmus, vomiting or weight changes Vital Signs Vital Signs Vital Signs: 12/12/24 05:59 12/12/24 05:59 Temperature 98 F Temperature Source Temporal Pulse Rate 75 Respiratory Rate 16 Respiratory Pattern Normal Blood Pressure 104/73 Blood Pressure Mean 83 Blood Pressure Source Monitor Blood Pressure Position Semi-Fowlers Blood Pressure Location Left Arm Pulse Ox 98 Oxygen Delivery Method Room Air Weight Weight: 205 lb Body Mass Index (BMI) 38.7 Physical Exam Const alert, oriented x3, no apparent distress and healthy appearing General Appearance: cooperative GI normal to inspection, nondistended, normoactive bowel sounds, soft to palpation,non-tender and non-distended Percussion: normal to percussion Rectal Exam: deferred Assessment & Plan Assessment/Plan (1) Diarrhea: (2) Bright red blood per rectum: PLAN: Assessment and Plan Assessment and Plan (1) Bright red blood per rectum: Status: Acute (2) Diarrhea: Status: Acute Plan: Ngoc is a 44 yo female pt here today for ED f/u after bright red blood per rectum and diarrhea. Work up in the ED showing thickening in the colon and possible enteritis. CBC showing leukocytosis however she is on steroids. Hgb wasnormal. Stool testing was negative for c. diff. Pt does have a hx of frequent episodes of diverticulitis but does not endorses having these symptoms in the past. She denies frequent NSAID use or hx of IBD. She will be scheduled for colonoscopy. I will repeat CBC to monitor hgb for any acute drops. I will also order calprotectin to evaluate her colon for inflammation. -Colonoscopy -CBC -Calprotectin -f/u after procedure Orders: Orders CBC W/Diff, Automated Today K62.5 - Hemorrhage of anus and rectum Calprotectin, Stool Today K62.5 - Hemorrhage of anus and rectum CRP Today K62.5 - Hemorrhage of anus and rectum Erythrocyte Sed Rate Today K62.5 - Hemorrhage of anus and rectum 08/05/25 0641 <Electronically signed by Misael Moore DO> Cosigner Signature (if applicable): CC: Dr. Coral Martinez MD; Misael Moore DO~ Signed [facility] Work Phone: Hospital Discharge instructions No data available for this section [facility] Hospital Discharge instructions Additional Instructions [facility] Work Phone: Hospital Discharge instructions Additional [...] care physician for further outpatient evaluation and management.[facility] Work Phone: Progress note No data available for this section [facility] Reason for referral (narrative)No reason for referral information availableWC[facility] Work Phone: Summary Purpose Family History No Family History Records FoundNo Family History Records Found No data available for this section No Family History Records FoundNo Family History Records Found Advance Directives No Advanced Directives Records Found Advance Directive Response Recorded Date/ Time Living Will No May 19 9:08am Power of Children Teacher No May 19, 2022 9:08am Advance Directive Response Recorded Date/ Time Do you have a Healthcare Power of Children Teacher? No October 14, 2024 5:51pm Advance Directive Response Recorded Date/ Time Do you have a Healthcare Power of Children Teacher? No December 11, 2024 8:24am Do you have a Healthcare Power of Children Teacher? No October 14, 2024 5:51pm Chief Complaint and Reason for Visit Chief Complaint PAIN- COPY PCP SHANKAR BROUSSARD Chief Complaint Admit Date S/O- PAIN- COPY [...] PAIN- COPY PCP September 13, 2024 7:05am ASSISTED DRUG THERAPY September 26, 2024 7: 17am gi bleed October 14, 2024 5:42p m Chief Complaint Admit Date S/O- PAIN- COPY PCP June 21, 2024 7:39am E-ORDER July 22, 2024 8:0 7am PAIN- COPY PCP September 13, 2024 7:05am DIRECTOR OF HOUSING DRUG THERAPY September 26, 2024 7: 17am gi bleed October 14, 2024 5:42p m ER FU BLEEDING October 17, 2024 6:55 am Reason for Visit Admit Date Bright red blood per rectum October 17, 2 025 6:55am Chief Complaint Admit Date E-ORDER July 22, 2024 8:0 7am PAIN- COPY PCP September 13, 2024 7:05am ASSISTED DRUG THERAPY September 26, 2024 7: 17am gi bleed October 14, 2024 5:42p m ER FU BLEEDING October 17, 2024 6:55 am INT LABS October 17, 2024 7:47 am EORDER- STOOL October 20, 2024 7:18 am Reason for Visit Admit Date Bright red blood per rectum October 17, 2 025 6:55am Diarrhea October 17, 2024 6:55 am Chief Complaint Admit Date E-ORDER July 22, 2024 8:0 7am PAIN- COPY PCP September 13, 2024 7:05am ASSISTED DRUG THERAPY September 26, 2024 7: 17am gi bleed October 14, 2024 5:42p m ER FU BLEEDING October 17, 2024 6:55 am INT LABS October 17, 2024 7:47 am EORDER- STOOL October 20, 2024 7:18 am S/O- PAIN- COPY PCP November 13, 2024 7:17a m Chief Complaint Admit Date PAIN- COPY PCP September 13, 2024 7:05am ASSISTED DRUG THERAPY September 26, 2024 7: 17am gi bleed October 14, 2024 5:42p m ER FU BLEEDING October 17, 2024 6:55 am INT LABS October 17, 2024 7:47 am EORDER- STOOL October 20, 2024 7:18 am S/O- PAIN- COPY PCP November 13, 2024 7:17a m Reason for Visit Admit Date Bright red blood per rectum October 17 6:55am Diarrhea October 17, 2024 6:55 am Bright red blood per rectum December 12, 2024 5:21am Diarrhea December 12, 2024 5:2 1am Additional Source Comments INFORMATION SOURCE (unrecogn ized section and content) DATE CREATED AUTHOR 01/31/2021 [facility] DATE CREATED AUTHOR AUTHOR'S ORGANIZ ATION 06/25/2022 [facility] ([place]) DATE CREATED AUTHOR AUTHOR'S ORGANIZ ATION 06/13/2024 [facility] DATE CREATED AUTHOR AUTHOR'S ORGANIZ ATION 01/13/2025 [facility] Care Team (unrecognized sect ion and content) Care Team Personnel Name: BRET LATIF DO Position: Physician Med Service: Active Provider Member Role: Primary Care Physician Address: Address: [address] [place] [address]- Care Team Related Persons Name: LIZ MAHONEY Address: Home [address] [place] [address] Care Teams (unrecognized sec tion and content) Team Status: Active Member Role Status Dates Jennifer Roland ASIAN STUDIES PROFESSOR, ASIAN STUDIES PROFESSOR-C Primary Care Provider Active Team Status: Inactive Member Role Status Dates Dr. Chemo Rodriguez MD Attending Provider, Referring Pr ovider Active Jennifer Roland ASIAN STUDIES PROFESSOR, ASIAN STUDIES PROFESSOR-C Primary Care Provider Active Team Status: Inactive Member Role Status Dates Jennifer Roland NP, ASIAN STUDIES PROFESSOR-C Primary Care Provider Active Dr. Clarice Liriano MD Attending Provider, Referring Provider Active Team Status: Active Member Role Status Dates Coral Martinez MD Primary Care Provider Active Team Status: Inactive Member Role Status Dates Jennifer Roland ASIAN STUDIES PROFESSOR, ASIAN STUDIES PROFESSOR-C Primary Care Provider Active Start: June 21, 2024 End: June 21, 2024 Dr. Clarice Liriano MD Attending Provider Active Start: June 21, 2024 End: June 21, 2024 Dr. Clarice Liriano MD Referring Provider Active Start: June [...] 13, 2024 End: September 13, 2024 Dr. Clarice Liriano MD Attending Provider Active Start: September 13, 2024 End: September 13, 2024 Dr. Clarice Liriano MD Referring Provider Active Start: September 13, 2024 End: September 13, 2024 Team Status: Inactive Member Role Status Melissa Martinez MD Primary Care Provider Active St art: September 26, 2024 End: September 26, 2024 Dr. Clarice Liriano MD Attending Provider Active Start: September 26, 2024 End: September 26, 2024 Dr. Clarice Liriano MD Referring Provider Active Start: September [...] October 17, 2024 End: October 17, 2024 LYNN Zarate Attending Provider Active Start: October 17, [...] October 17, 2024 End: October 17, 2024 LYNN Zarate Attending Provider Active Start: October 17, 2024 End: October 17, 2024 LYNN Zarate Referring Provider Active Start: October 17, 2024 End: October 17, 2024 Team Status: Active Member Role Status Melissa Martinez MD Primary Care Provider Active St art: October 20, 2024 LYNN Zarate Attending Provider Active Start: October 20, 2024 LYNN Zarate Referring Provider Active Start: October 20, 2024 Team Status: Inactive Member Role Status Melissa Martinez MD Primary Care Provider Active St art: October 20, 2024 End: October 20, 2024 LYNN Zarate Attending Provider Active Start: October 20, 2024 End: October 20, 2024 LYNN Zarate Referring Provider Active Start: October 20, [...] 13, 2024 End: September 13, 2024 Dr. Clarice Liriano MD Attending Provider Active Start: September 13, 2024 End: September 13, 2024 Dr. Clarice Liriano MD Referring Provider Active Start: September 13, 2024 End: September 13, 2024 Team Status: Inactive Member Role/Relationship Status Melissa Martinez MD Primary Care Provider Active St art: September 26, 2024 End: September 26, 2024 Dr. Clarice Liriano MD Attending Provider Active Start: September 26, 2024 End: September 26, 2024 Dr. Clarice Liriano MD Referring Provider Active Start: September 26, 2024 End: September 26, 2024 Team Status: Inactive Member Role/Relationship Status Dates Coral Martinez MD Primary Care Provider Active St art: October 14, 2024 End: October 14, 2024 Dr. Sam Combs DO Attending Provider Active Start: October 14, 2024 End: October 14, 2024 Dr. Sam Combs DO Emergency Provider Active Start: October 14, 2024 End: October 14, 2024 Team Status: Inactive Member Role/Relationship Status Dates Coral Martinez MD Primary Care Provider Active St art: October 17, 2024 End: October 17, 2024 Coral Martinez MD Referring Provider Active Start : October 17, 2024 End: October 17, 2024 LYNN Zarate Attending Provider Active Start: October 17, 2024 End: October 17, 2024 Team Status: Inactive Member Role/Relationship Status Dates Coral Martinez MD Primary Care Provider Active St art: October 17, 2024 End: October 17, 2024 LYNN Zarate Attending Provider Active Start: October 17, 2024 End: October 17, 2024 LYNN Zarate Referring Provider Active Start: October 17, 2024 End: October 17, 2024 Team Status: Inactive Member Role/Relationship Status Dates Coral Martinez MD Primary Care Provider Active St art: October 20, 2024 End: October 20, 2024 LYNN Zarate Attending Provider Active Start: October 20, 2024 End: October 20, 2024 LYNN Zarate Referring Provider Active Start: October 20, 2024 End: October 20, 2024 Team Status: Inactive Member Role/Relationship Status Dates Coral Martinez MD Primary Care Provider Active St art: November 13, 2024 End: November 13, 2024 Dr. Clarice Liriano MD Attending Provider Active Start: November 13, 2024 End: November 13, 2024 Dr. Clarice Liriano MD Referring Provider Active Start: November 13, 2024 End: November 13, 2024 Team Status: Inactive Member Role/Relationship Status Dates Coral Martinez MD Primary Care Provider Active St art: September 13, 2024 End: September 13, 2024 Dr. Clarice Liriano MD Attending Provider Active Start: September 13, 2024 End: September 13, 2024 Dr. Clarice Liriano MD Referring Provider Active Start: September 13, 2024 End: September 13, 2024 Team Status: Inactive Member Role/Relationship Status Melissa Martinez MD Primary Care Provider Active St art: September 26, 2024 End: September 26, 2024 Dr. Clarice Liriano MD Attending Provider Active Start: September 26, 2024 End: September 26, 2024 Dr. Clarice Liriano MD Referring Provider Active Start: September [...] October 17, 2024 End: October 17, 2024 LYNN Zarate Attending Provider Active Start: October 17, 2024 End: October 17, 2024 Team Status: Inactive Member Role/Relationship Status Melissa Martinez MD Primary Care Provider Active St art: October 17, 2024 End: October 17, 2024 LYNN Zarate Attending Provider Active Start: October 17, 2024 End: October 17, 2024 LYNN Zarate Referring Provider Active Start: October 17, 2024 End: October 17, 2024 Team Status: Inactive Member Role/Relationship Status Melissa Martinez MD Primary Care Provider Active St art: October 20, 2024 End: October 20, 2024 LYNN Zarate Attending Provider Active Start: October 20, 2024 End: October 20, 2024 LYNN Zarate Referring Provider Active Start: October 20, 2024 End: October 20, 2024 Team Status: Inactive Member Role/Relationship Status Melsisa Martinez MD Primary Care Provider Active St art: November 13, 2024 End: November 13, 2024 Dr. Clarice Liriano MD Attending Provider Active Start: November 13, 2024 End: November 13, 2024 Dr. Clarice Liriano MD Referring Provider Active Start: November 13, 2024 End: November 13, 2024 Team Status: Inactive Member Role/Relationship Status Dates Coral Martinez MD Primary Care Provider Active St art: December 12, 2024 End: December 12, 2024 Coral Martinez MD Referring Provider Active Start : December 12, 2024 End: December 12, 2024 Dr. Misael Moore DO Attending Provider Active Start: December 12, 2024 End: December 12, 2024 Team Status: Active Member Role/Relationship Status Dates Coral Martinez MD Primary Care Provider Active St art: December 12, 2024 Coral Martinez MD Referring Provider Active Start : December 12, 2024 Dr. Misael Moore DO Attending Provider Active Start: December 12, 2024 Dr. Misael Moore DO Other Provider Active St art: December 12, 2024 Goals (unrecognized section and content) Goals [...] BE BASED ON THE PRIMARY CLINICAL RECORDS. [facility]. provides no warranty or guarantee of the accuracy or completeness of information in this document.
[2025-01-16] MEDS: Lactated Ringers 1,000 ML 15 ML IV (05:58)
--- NOTE | 2025-01-16 06:24 | PCM.PRE.AN2 ---
ASA Classification* ASA Classification ASA Classification: 3 Assessment & Plan Anesthesia* Anesthesia Assessment Anesthesia Assessment: Discussed sedation and/or anesthesia options, risks, benefits, and alternatives with patient/parents/legal guardian/POA. Questions invited. The patient/parents/legal guardian/POA seems to understand and agrees to proceed with anesthesia plan. Reviewed the physical assessment, medical history, allergy history and patient home medications list prior to surgery/procedure/anesthetic and documented any changes. Performed airway and anesthesia risk assessments. Anesthesia Type Anesthesia Type: MAC History Source History Obtained from:: Patient and Chart Anesthesia Focused Assessment* Temperature: 98.4 F Pulse Rate: 72 Blood Pressure: 96/51 Respiratory Rate: 16 Pulse Ox: 97 Oxygen Delivery Method: Room Air Airway Assessment Mouth opens: >3 cm Mallampati Score: IV Teeth Condition: Missing (Patient is missing a left lower molar. Rest are tight.) Neck Range of motion (ROM): Full ROM Labs Anesthesia Preop lab: CBC WBC 7.0 K/mm3 (4.4-11.0) 11/13/24 07:11/13/24 RBC 3.93 M/mm3 (4.2-5.4) L 11/13/24 07:21 11/13/24 Hgb 12.6 g/dL (12.0-15.0) 11/13/24 07:21 11/13/24 Hct 37.8 % (37-47) 11/13/24 07:21 11/13/24 Plt Count 233 K/mm3 (150-450) 11/13/24 07:21 11/13/24 CHEMISTRY Potassium 4.2 mmol/L (3.3-5.1) 11/13/24 07:21 11/13/24 Sodium 137 mmol/L (133-145) 11/13/24 07:21 11/13/24 BUN 9 mg/dL (4-19) 11/13/24 07:21 11/13/24 Creatinine 0.84 mg/dL (0.70-1.20) 11/13/24 07:21 11/13/24 Glucose 96 mg/dL (70-99) 11/13/24 07:21 11/13/24 TSH 0.289 uIU/mL (0.300-4.200) L 07/22/24 08:14 07/22/24 COAG Urine Test Negative Negative 10/14/24 18:18 10/14/24 Pre-Assessment Diagnosis/Proposed Procedure Planned Operative Procedure(s): COLONOSCOPY Anesthesia History 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 When Was Last Pacemaker Check QUESTION #4 FULL TEXT: You/Your Family Experience fever (hyperthermia) with Anesthesia Last Oral Intake Last Oral intake: Last Oral Intake NPO since 04:30 01/16/25 05:55 Meds taken in AM with sips of Yes 01/16/25 05:55 water? 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 Female Yes 01/11/25 13:51 HX of Motion Sickness No 01/11/25 13:51 HX of N/V After Surgery No 01/11/25 13:51 Non-Smoker Yes 01/11/25 13:51 Duration of Surgery greater No 01/11/25 13:51 than 60 minutes Number of Risk Factors 2 01/11/25 13:51 PONV Score Moderate Risk 01/11/25 13:51 Height & Weight Height & Weight: Anesthesia: Height & Weight Height 5 ft 1 in 01/16/25 05:55 Weight: 86 kg 01/16/25 05:55 Body Mass Index (BMI) 35.8 01/16/25 05:55 Respiratory Assessment Respiratory Assessment - physical medicine teacher: Respiratory Tract Infection Hx - physical medicine teacher Hx Respiratory Tract Infection No 01/11/25 13:51 STOP Sleep Apnea STOP Sleep Apnea - physical medicine teacher: STOP Sleep Apnea - physical medicine teacher Hx Hypertension No 01/11/25 13:51 Hx Sleep Apnea Yes 01/11/25 13:51 CPAP Yes 01/11/25 13:51 BIPAP No 01/11/25 13:51 Do you snore loudly (louder than talking or can be heard Do you often feel tired/ fatigued/ sleepy during daytime? Has anyone observed you stop breathing during sleep? STOP Results Positive 01/11/25 13:51 QUESTION #5 FULL TEXT : Do you snore loudly (louder than talking or can be heard through closed doors)? 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 Specify any problems Hx of Preganancy in last 3 No 01/11/25 13:51 Months Nurse Filling Out Transfusion VCHRISTIN 01/11/25 13:51 & Questions: Date: 01/11/25 01/11/25 13:51 Time: 13:52 01/11/25 13:51 Patient unable to answer at this time (ie. confused, unrespo /Reproduction History /Reproductive History - physical medicine teacher: /Reproductive Hx- physical medicine teacher Hx Now No 01/11/25 13:51 Gestational Age (in weeks): EDC: Hx Hx Para Hx Section SAB No 01/11/25 13:51 Active Medications Active Medications: Current Medications Generic Name Dose Route Start Last Admin Trade Name Freq PRN Reason Stop Dose Admin Lactated Ringer's 1,000 mls @ 15 mls/hr 01/16/25 05:45 01/16/25 05:58 IV 15 mls/hr .Q48H DALJIT Administration PFSH Medical History Sleep apnea CPAP (continuous positive airway pressure) dependence Fatty liver Anxiety Depression Thyroid disease Murmur History of echocardiogram Wears contact lenses Wears glasses History of steroid therapy Rheumatoid arthritis Arthritis Anemia High cholesterol Migraine headache History of diverticulitis History of hiatal hernia Gastric reflux Former smoker Asthma COPD (chronic obstructive pulmonary disease) Hoarseness Chronic cough Fibromyalgia Leg cramps History of pain when walking History of edema Home Medications ?Medication ?Instructions ?Recorded ?Last Taken ?Type albuterol sulfate 90 mcg/actuation 2 inh inhalation PRN PRN COPD 05/19/22 05/25/22 History aerosol inhaler atorvastatin 10 mg tablet 10 mg PO QHS 05/19/22 Unknown History duloxetine 60 mg capsule,delayed 60 mg PO QHS 05/19/22 01/16/25 04:30 History release (Cymbalta) ferrous sulfate 28 mg iron tablet 28 mg PO DAILY 05/19/22 12/08/24 History fluticasone furoate 200 1 inh inhalation DAILY 05/19/22 05/25/22 History mcg-vilanterol 25 mcg/dose inhalation powder folic acid 1 mg tablet 2 mg PO DAILY 05/19/22 Unknown History hydroxychloroquine 200 mg tablet 200 mg PO BID 05/19/22 Unknown History leucovorin calcium 15 mg tablet 15 mg PO FR 05/19/22 Unknown History Held on 12/11/24. Instructions: per pt methotrexate sodium 2.5 mg tablet 20 mg PO TH 05/19/22 01/11/25 History multivitamin 1 tab PO DAILY 05/19/22 Unknown History pantoprazole 40 mg tablet,delayed 40 mg PO DAILY 05/19/22 01/16/25 04:30 History release prednisone 10 mg tablet 10 mg PO PRN PRN RHEUMATOID 05/19/22 Unknown History ARTHRITIS ondansetron 4 mg disintegrating 4 mg PO Q8H PRN PRN Nausea 3 days 10/14/24 Unknown Rx tablet #10 tabs tirzepatide (weight loss) 5 mg/0.5 10 mg subcut QWEEK 10/17/24 01/06/25 History mL subcutaneous pen injector (Zepbound) levothyroxine 137 mcg tablet 137 mcg PO DAILY 12/11/24 01/16/25 04:30 History (Synthroid) linaclotide 290 mcg capsule 290 mcg PO DAILY PRN ABD DISCOMFORT 12/11/24 Unknown History (Linzess) prazosin 1 mg capsule 1 mg PO QHS 12/11/24 Unknown History peg 3350-electrolytes 236 240 ml PO Q10M #4,000 mL 12/12/24 Unknown Rx gram-22.74 gram-6.74 gram-5.86 gram solution (Golytely) aspirin 81 mg capsule 81 mg PO DAILY 01/11/25 Unknown History cetirizine 10 mg tablet 10 mg PO DAILY 01/11/25 Unknown History duloxetine 30 mg capsule,delayed 30 mg PO 0800 01/11/25 Unknown History release Allergy/AdvReac Type Severity Reaction Status Date / Time amoxicillin AdvReac Other Verified 01/16/25 05:54 Surgical History H/O bilateral salpingectomy H/O sinus surgery Myringotomy tube status Hx of lymph node biopsy Hx of tonsillectomy Social History household members: spouse housing: house Smoking Status: Former smoker Review of Systems (Anesthesia) ROS Narrative System reviewed and no additional complaints, except as documented. Physical Exam Resp clear to auscultation bilaterally
--- NOTE | 2025-01-16 06:30 | COLBX_PTH ---
PATIENT: MCKAYLA KAUFFMAN LOC: EN U#:[id number] AGE/SX: 44/F ROOM: RE01/16/[address]: Dr. Misael Moore DO : 1980 BED: DIS: 01/16/2025 SPEC #: [id number] RECD: 01/16/25 08:39 STATUS: SELAM ELIDA #: [id number] PAULA: 01/16/25 06:[address]: Misael Moore DEPT: SURGICAL PATHOLOGY RECD BY: Jeffery Otero ENTERED: 01/16/25 10:31 SP TYPE: COLON BX OTHR DR: Coral Martinez MD Tissues: A - Ascending colon B - Transverse colon Procedures: Surgery Specimen Level IV HEADER OPERATION: Colonoscopy, polypectomy, hemostasis, biopsy PRE-OP DIAGNOSIS: Diarrhea, bright red blood per rectum TISSUE SUBMITTED: A- Ascending polyp, B- Transverse polyp biopsy MICROSCOPIC DIAGNOSIS A. Ascending colon, polyp, biopsy: - Fragments of colonic mucosa demonstrating tubular adenoma. - Fragments of mature adipose suggestive of submucosal lipoma. B. Transverse colon, polyp, biopsy: - Tubular adenoma. MICROSCOPIC DESCRIPTION Slides are reviewed. GROSS DESCRIPTION A. Received in fixative is one container labeled with the patient's name and designated Ascending polyp. The specimen consists of multiple irregular fragments of light brannon soft tissue that in aggregate measure 1.5 x 0.9 x 0.2 cm. The specimen is totally submitted in one cassette. B. Received in fixative is one container labeled with the patient's name and designated Transverse polyp biopsy. The specimen consists of one irregular fragment of light brannon soft tissue that measures 0.4 cm. The specimen is totally submitted in one cassette. DE 01/16/2025 CPT:10191h2
--- NOTE | 2025-01-16 06:38 | PCM.HP.STD ---
[facility] - General General Date of Admission: 01/16/25 Date of Service: 01/16/25 Chief Complaint: Lower GI bleed [facility] Narrative NGOC KAUFFMAN, is a 44 F who presents with the Chief Complaint: bleeding with bowel movement [facility] ED 10.14.24 with abdominal pain and bloody diarrhea. Hx of diverticulitis. CBC with leukocytosis but pt on steroids. CT showing enteritis CT abd/pelvis 10.14.24 1. Long segment wall thickening, hyperenhancement and fat stranding of the proximal descending colon, which is indeterminate in etiology, and may represent enteritis or inflammatory bowel disease. Colonoscopy is recommended for further evaluation. 2. Minimal colonic diverticulosis. No intra-abdominal abscess, ascites or free air. Stool; negative for c dif and enteric pathogens OV 10.17.24 Pt continues with bleeding and loose stools. Blood is bright red and fills the bowel. This is the first time she has ever had blood in her stool like this. She has been taking zofran as needed. She endorses hx of frequent episodes of diverticulitis treated with with cipro and flagyl. She does not take daily NSAIDs. Last colonoscopy was in 2021 with diverticula. [facility] Medical History Sleep apnea CPAP (continuous positive airway pressure) dependence Fatty liver Anxiety Depression Thyroid disease Murmur History of echocardiogram Wears contact lenses Wears glasses History of steroid therapy Rheumatoid arthritis Arthritis Anemia High cholesterol Migraine headache History of diverticulitis History of hiatal hernia Gastric reflux Former smoker Asthma COPD (chronic obstructive pulmonary disease) Hoarseness Chronic cough Fibromyalgia Leg cramps History of pain when walking History of edema Home Medications ?Medication ?Instructions ?Recorded ?Last Taken ?Type albuterol sulfate 90 mcg/actuation 2 inh inhalation PRN PRN COPD 05/19/22 05/25/22 History aerosol inhaler atorvastatin 10 mg tablet 10 mg PO QHS 05/19/22 Unknown History duloxetine 60 mg capsule,delayed 60 mg PO QHS 05/19/22 01/16/25 04:30 History release (Cymbalta) ferrous sulfate 28 mg iron tablet 28 mg PO DAILY 05/19/22 12/08/24 History fluticasone furoate 200 1 inh inhalation DAILY 05/19/22 05/25/22 History mcg-vilanterol 25 mcg/dose inhalation powder folic acid 1 mg tablet 2 mg PO DAILY 05/19/22 Unknown History hydroxychloroquine 200 mg tablet 200 mg PO BID 05/19/22 Unknown History leucovorin calcium 15 mg tablet 15 mg PO FR 05/19/22 Unknown History Held on 12/11/24. Instructions: per pt methotrexate sodium 2.5 mg tablet 20 mg PO TH 05/19/22 01/11/25 History multivitamin 1 tab PO DAILY 05/19/22 Unknown History pantoprazole 40 mg tablet,delayed 40 mg PO DAILY 05/19/22 01/16/25 04:30 History release prednisone 10 mg tablet 10 mg PO PRN PRN RHEUMATOID 05/19/22 Unknown History ARTHRITIS ondansetron 4 mg disintegrating 4 mg PO Q8H PRN PRN Nausea 3 days 10/14/24 Unknown Rx tablet #10 tabs tirzepatide (weight loss) 5 mg/0.5 10 mg subcut QWEEK 10/17/24 01/06/25 History mL subcutaneous pen injector (Zepbound) levothyroxine 137 mcg tablet 137 mcg PO DAILY 12/11/24 01/16/25 04:30 History (Synthroid) linaclotide 290 mcg capsule 290 mcg PO DAILY PRN ABD DISCOMFORT 12/11/24 Unknown History (Linzess) prazosin 1 mg capsule 1 mg PO QHS 12/11/24 Unknown History peg 3350-electrolytes 236 240 ml PO Q10M #4,000 mL 12/12/24 Unknown Rx gram-22.74 gram-6.74 gram-5.86 gram solution (Golytely) aspirin 81 mg capsule 81 mg PO DAILY 01/11/25 Unknown History cetirizine 10 mg tablet 10 mg PO DAILY 01/11/25 Unknown History duloxetine 30 mg capsule,delayed 30 mg PO 0800 01/11/25 Unknown History release Allergy/AdvReac Type Severity Reaction Status Date / Time amoxicillin AdvReac Other Verified 01/16/25 05:54 Surgical History H/O bilateral salpingectomy H/O sinus surgery Myringotomy tube status Hx of lymph node biopsy Hx of tonsillectomy Social History household members: spouse housing: house Smoking Status: Former smoker ROS Constitutional Constitutional: Denies fatigue, fever(s), poor appetite, weight gain or weight loss Gastrointestinal Gastrointestinal: Denies belching, bloating, change in bowel habits, change in stool character, chewing difficulty, coffee ground emesis, constipation, cramping, diarrhea, dyspepsia, dysphagia, early satiety, excessive flatus, fecal incontinence, heartburn, hematemesis, hematochezia, hemorrhoids, loose stools, melena, nausea, odynophagia, rectal bleeding, tenesmus, vomiting or weight changes Vital Signs Vital Signs Vital Signs: 01/16/25 05:55 01/16/25 05:55 01/16/25 06:31 Temperature 98.4 F 98.4 F Temperature Source Temporal Pulse Rate 72 72 Respiratory Rate 16 16 Respiratory Pattern Normal Blood Pressure 96/51 L 96/51 L Blood Pressure Mean 66 Blood Pressure Source Monitor Blood Pressure Position Sitting Blood Pressure Location Left Arm Pulse Ox 97 97 Oxygen Delivery Method Room Air Room Air Weight Weight: 189 lb 9.561 oz Body Mass Index (BMI) 35.8 Physical Exam Const alert, oriented x3, no apparent distress and healthy appearing General Appearance: cooperative GI normal to inspection, nondistended, normoactive bowel sounds, soft to palpation, non-tender and non-distended Percussion: normal to percussion Rectal Exam: deferred Assessment & Plan Assessment/Plan (1) Diarrhea: (2) Bright red blood per rectum: PLAN: (1) Bright red blood per rectum: Status: Acute (2) Diarrhea: Status: Acute Plan: Ngoc is a 44 yo female pt here today for ED f/u after bright red blood per rectum and diarrhea. Work up in the ED showing thickening in the colon and possible enteritis. CBC showing leukocytosis however she is on steroids. Hgb was normal. Stool testing was negative for c. diff. Pt does have a hx of frequent episodes of diverticulitis but does not endorses having these symptoms in the past. She denies frequent NSAID use or hx of IBD. She will be scheduled for colonoscopy. I will repeat CBC to monitor hgb for any acute drops. I will also order calprotectin to evaluate her colon for inflammation. -Colonoscopy -CBC -Calprotectin -f/u after procedure Orders: Orders CBC W/Diff, Automated Today K62.5 - Hemorrhage of anus and rectum Calprotectin, Stool Today K62.5 - Hemorrhage of anus and rectum CRP Today K62.5 - Hemorrhage of anus and rectum Erythrocyte Sed Rate Today K62.5 - Hemorrhage of anus and rectum
--- NOTE | 2025-01-16 07:19 | OP.PROVAT_ITS ---
01/16/2025 Coral Martinez Md Re : Colonoscopy procedure for Ngoc Dasilva Dear Juan This procedure was performed on Thursday, January 16, 2025. My impressions and recommendations are as follows: Impressions : - One 5 mm polyp in the transverse colon, removed with a cold biopsy forceps. Resected and retrieved. - One 10 mm polyp in the ascending colon, removed with a hot snare. Resected and retrieved. - Diverticulosis in the recto-sigmoid colon, in the sigmoid colon, in the descending colon, at the splenic flexure and in the transverse colon. - Non-bleeding internal hemorrhoids. Recommendations : - Repeat colonoscopy in 5 years for surveillance. - Continue present medications. My findings are described in the full procedure note, which is enclosed. If I can be of further assistance, please feel free to contact me at . Sincerely, Misael Moore, 01/16/2025 7:17:59 AM This report has been signed electronically.
--- NOTE | 2025-01-16 07:19 | OP.COLON_ITS ---
Patient Name: Ngoc Dasilva Procedure Date: 01/16/2025 6:13 AM Date of : 1980 Age: 44 Procedure: Colonoscopy Indications: Screening for colorectal malignant neoplasm Providers: Misael Moore DO Referring MD: Coral Martinez Md Medicines: Monitored Anesthesia Care Patient Profile: This is a 44 year old female. Refer to note in patient chart for documentation of history and physical. Last Colonoscopy: none. The patient's first colonoscopy is today. Complications: No immediate complications. Procedure: Pre-Anesthesia Assessment: - Prior to the procedure, a History and Physical was performed, and patient medications and allergies were reviewed. The patient is competent. The risks and benefits of the procedure and the sedation options and risks were discussed with the patient. All questions were answered and informed consent was obtained. Patient identification and proposed procedure were verified by the physician in the pre-procedure area. Mental Status Examination: alert and oriented. Airway Examination: normal oropharyngeal airway and neck mobility. Respiratory Examination: clear to auscultation. CV Examination: normal. Prophylactic Antibiotics: The patient does not require prophylactic antibiotics. Prior Anticoagulants: The patient has taken no anticoagulant or antiplatelet agents. ASA Grade Assessment: II - A patient with mild systemic disease. After reviewing the risks and benefits, the patient was deemed in satisfactory condition to undergo the procedure. The anesthesia plan was to use monitored anesthesia care (MAC). Immediately prior to administration of medications, the patient was re-assessed for adequacy to receive sedatives. The heart rate, respiratory rate, oxygen saturations, blood pressure, adequacy of pulmonary ventilation, and response to care were monitored throughout the procedure. The physical status of the patient was re-assessed after the procedure. After I obtained informed consent, the scope was passed under direct vision. Throughout the procedure, the patient's blood pressure, pulse, and oxygen saturations were monitored continuously. The Colonoscope was introduced through the anus and advanced to the cecum, identified by appendiceal orifice and ileocecal valve. The colonoscopy was performed without difficulty. The patient tolerated the procedure well. The quality of the bowel preparation was adequate. The ileocecal valve, appendiceal orifice, and rectum were photographed. Scope In: 6:49:45 AM Scope Withdrawal Time 0 hours 14 minutes 48 seconds Scope Out: 7:07:59 AM Total Procedure Duration Time 0 hours 18 minutes 14 seconds Findings: The perianal and digital rectal examinations were normal. A 5 mm polyp was found in the transverse colon. The polyp was sessile. The polyp was removed with a cold biopsy forceps. Resection and retrieval were complete. Verification of patient identification for the specimen was done. Estimated blood loss was minimal. A 10 mm polyp was found in the ascending colon. The polyp was sessile. The polyp was removed with a hot snare. Resection and retrieval were complete. Verification of patient identification for the specimen was done. Estimated blood loss was minimal. Multiple small and large-mouthed diverticula were found in the recto-sigmoid colon, sigmoid colon, descending colon, splenic flexure and transverse colon. Non-bleeding internal hemorrhoids were found during retroflexion. The hemorrhoids were mild and Grade II (internal hemorrhoids that prolapse but reduce spontaneously). Impression: - One 5 mm polyp in the transverse colon, removed with a cold biopsy forceps. Resected and retrieved. - One 10 mm polyp in the ascending colon, removed with a hot snare. Resected and retrieved. - Diverticulosis in the recto-sigmoid colon, in the sigmoid colon, in the descending colon, at the splenic flexure and in the transverse colon. - Non-bleeding internal hemorrhoids. Recommendation: - Repeat colonoscopy in 5 years for surveillance. - Continue present medications. Procedure Code(s): --- Professional --- 32258, Colonoscopy, flexible; with removal of tumor(s), polyp(s), or other lesion(s) by snare technique [id number], 59, Colonoscopy, flexible; with biopsy, single or multiple CPT copyright 2021 [employer]. All rights reserved. The codes documented in this report are preliminary and upon assistant to the dean review may be revised to meet current compliance requirements. Misael Moore DO 01/16/2025 7:17:59 AM This report has been signed electronically. Number of Addenda: 0 Note Initiated On: 01/16/2025 6:13 AM
--- NOTE | 2025-01-16 07:21 | PCM.POST.ANE ---
Anesthesia: Postop Eval I Current Vital Signs Temperature: 97.8 F Pulse Rate: 80 Blood Pressure: 101/54 Respiratory Rate: 16 Pulse Ox: 100 Oxygen Delivery Method: Room Air Assessment Airway patent: Yes Spontaneous unlabored respirations: Yes Mental status: Awake and Calm nausea: No Vomiting: No Anesthesia Complication: No Fluid Hydration Crystalloid volume administer (ml): 700 Total IV fluid infused: 700 Progress Note Anesthesia document: Postop Eval 1 completed: Yes
--- NOTE | 2025-01-16 08:26 | PCM.POSTANE2 ---
Anesthesia Postop Eval I Sum Postop Eval Completion status Anesthesia document: Postop Eval 1 completed: Yes Anesthesia Postop Eval I Summary Anesthesia Postop Eval I Summary: Anesthesia Postop Eval I: Assessment Summary Airway patent Yes 01/16/25 07:22 [email or web address] Spontaneous unlabored Yes 01/16/25 07:22 [email or web address] respirations Mental status Awake,Calm 01/16/25 07:22 [email or web address] nausea No 01/16/25 07:22 [email or web address] Vomiting No 01/16/25 07:22 [email or web address] Anesthesia Postop Eval I: Fluid Summary Crystalloid volume administer 700 01/16/25 07:22 [email or web address] (ml) Colloids volume administered ( ml) Blood Product volume administered (ml) Total IV fluid infused 700 01/16/25 07:22 [email or web address] Anesthesia Postop Eval I: Summary Notes Anesthesia Complication No 01/16/25 07:22 [email or web address] Anesthesia Complication Comment: Post-operative progress note Anesthesia: Postop Eval II Evaluation Mental status: Awake and Calm Pain Level: 0 nausea: No Vomiting: No Complications Anesthesia Complication: No
== END 2025-01-16 08:09 | disposition home or self-care (01) ==
LOC: EN 05:24 → AC 05:25
PROVIDERS: PCP Family Medicine; Referring Provider Family Medicine; Visit Provider Internal Medicine Gastroenterology
PROC: 0DJD8ZZ Inspection of Lower Intestinal Tract, Via Natural or Artificial Opening Endoscopic (ICD-10-PCS; CPT 45378; principal; 2025-01-16 06:25)
DX: D12.2 Benign neoplasm of ascending colon (principal); J44.9 Chronic obstructive pulmonary disease, unspecified; E78.00 Pure hypercholesterolemia, unspecified; K64.1 Second degree hemorrhoids; Z87.891 Personal history of nicotine dependence; K21.9 Gastro-esophageal reflux disease without esophagitis; Z79.899 Other long term (current) drug therapy; Z79.890 Hormone replacement therapy; Z79.82 Long term (current) use of aspirin; K57.30 Diverticulosis of large intestine without perforation or abscess without bleeding; D12.3 Benign neoplasm of transverse colon; E07.9 Disorder of thyroid, unspecified
CPT/HCPCS: 45380; 45385; 88305; J2405

== ENCOUNTER → 2025-01-18 | Outpatient (CLI) | payer BC, SELFPAY ==
--- OUTSIDE RECORDS SUMMARY | 2025-01-18 07:23 | XMS RPT_ITS | CCD ---
Author Organization [facility] Care Team Providers Care Director Of Promotions Name Role Phone BRET LATIF DO, V Primary Care Physician DEANDRA FRANCE, DR. SIFUENTES Attending Unavaila ble BRET LATIF DO, V Primary Care Unavailable CLARICE LIRIANO MD Primary Care Unavailable JENNIFER MORAN CNP Consulting Unavailable CLARICE LIRIANO MD Admitting Unavailable CLARICE LIRIANO MD Attending Unavailable PROVIDER, UNKNOWN Consulting Unavailable PROVIDER, UNKNOWN Consulting Unavailable CLARICE LIRIANO MD Admitting Unavailable JENNIFER MORAN CNP Consulting Unavailable CLARICE LIRIANO MD Attending Unavailable CLARICE LIRIANO MD Primary Care Unavailable PROVIDER, UNKNOWN Consulting Unavailable PROVIDER, UNKNOWN Consulting Unavailable JENNIFER MORAN CNP Attending Unavailable JENNIFER MORAN CNP Admitting Unavailable JENNIFER MORAN CNP Consulting Unavailable JENNIFER MORAN CNP Primary Care Unavailable PROVIDER, UNKNOWN Consulting Unavailable PROVIDER, UNKNOWN Consulting Unavailable JENNIFER MORAN CNP Admitting Unavailable JENNIFER MORAN CNP Attending Unavailable JENNIFER MORAN CNP Consulting Unavailable JENNIFER MORAN CNP Primary Care Unavailable PROVIDER, UNKNOWN Consulting Unavailable PROVIDER, UNKNOWN Consulting Unavailable JENNIFER MORAN CNP Admitting Unavailable JENNIFER MORAN CNP Attending Unavailable JENNIFER MORAN CNP Consulting Unavailable JENNIFER MORAN CNP Primary Care Unavailable PROVIDER, UNKNOWN Consulting Unavailable PROVIDER, UNKNOWN Consulting Unavailable Dean IN SERVICE EDUCATION TEACHER-CJennifer Primary Care Provider Dr. Clarice Liriano MD Attending Provider Dr. Clarice Liriano MD Referring Provider Coral Martinez MD Primary Care Provider Coral Martinez MD Attending Provider [phone] Coral Martinez MD Referring Provider Dr. Sam Combs DO Emergency Provider Sheila Kong Attending Provider Deandra VELASCO, Dr. Sifuentes Attending Provider Deandra VELASCO, Dr. Sifuentes Referring Provider Dr. Sam Combs DO Attending Provider Sheila Kong Referring Provider Juan VELASCO, Chalon Primary Care Provider Juan VELASCO, Chalon Referring Provider Oscar JOHN, Dr. Douglas Attending Provider Oscar JOHN, Dr. Douglas Other Provider Juan VELASCO, Chalon Primary Care Provider [phone] Deandra VELASCO, Dr. Sifuentes Attending Provider Deandra VELASCO, Dr. Sifuentes Referring Provider Juan, Chalon Primary Care Unavailable Atanasov, Sheila Referring Unavailable Atanasov, Sheila Attending Unavailable Juan, Chalon Primary Care Unavailable Vellanki, Clarice Attending Unavailable Vellanki, Clarice Referring Unavailable Vellanki, Clarice Referring Unavailable Vellanki, Clarice Attending Unavailable Dean IN SERVICE EDUCATION TEACHER, Jennifer Primary Care Unavailable Dean IN SERVICE EDUCATION TEACHER, Jennifer Primary Care Unavailable Vellanki, Clarice Referring Unavailable Vellanki, Clarice Attending Unavailable Juan, Chalon Primary Care Unavailable Juan, Chalon Referring Unavailable Atanasov Sheila Attending Unavailable Juan, Chalon Primary Care Unavailable Juan, Chalon Referring Unavailable Friend, Misael Attending Unavailable Friend, Misael Consulting Unavailable Juan, Chalon Primary Care Unavailable Juan, Chalon Referring Unavailable Friend, Misael Attending Unavailable Friend, Misael Consulting Unavailable Juan, Chalon Primary Care Unavailable Juan, Chalon Referring Unavailable Juan, Chalon Attending Unavailable Juan, Chalon Primary Care Unavailable Vellanki, Clarice Attending Unavailable Vellanki, Clarice Referring Unavailable Juan, Chalon Primary Care Unavailable Vellanki, Clarice Attending Unavailable Vellanki, Clarice Referring Unavailable Juan, Chalon Primary Care Unavailable Atanasov, Sheila Referring Unavailable Atanasov, Sheila Attending Unavailable Juan, Chalon Primary Care Unavailable Sam Combs Attending Unavailable oCral Martinez Primary Care Unavailable Coral Martinez Referring Unavailable Friend, Misael Attending Unavailable Coral Martinez Primary Care Unavailable Coral Martinez Referring Unavailable Friend, Misael Attending Unavailable Allergies Allergy Classification Reported Allergen(s) Allergy Type Date of Onset Reaction(s) Facility (12 sources) Amoxicillin; Translations: [amoxicillin] Drug Allergy 05-19-2022 RASH, Other [facility] Comment on above: YEAST INFECTIONS (1 source) Amoxicillin Drug Allergy [facility] Repository (1 source) Amoxicillin Drug Allergy 01-16-2025 [facility] Repository Medications Current Medications Medication Drug Class(es) Dates Sig (Normalized) Sig (Original) acetaminophen 325 mg oral tablet (2 sources) Start: 07-21-2011 Tylenol 325 mg oral tablet Dose : 650 mg = 2 tab(s), Oral, q4h, PRN for pain, # 120 tab(s), 0 Refill(s) Start Date: 07/21/11 Status: Ordered [id number] 200 actuat albuterol 0.09 mg/actuat metered dose inhaler (10 sources) beta2-Adrenergic Agonist Start: 05-19-2022 Albuterol Sulfate 90 mcg/actuation HFA aerosol inhaler Active 2 NMA INHALATION NEEDED as needed for COPD May 19, 2022 1:00am Start: 05-19-2022 Albuterol Sulf ate Active 2 INH INHALATION NEEDED May 19, 2022 12:00am aspirin 81 mg oral tablet (1 source) Platelet Aggregation Inhibitor, Nonsteroidal Anti-inflammatory Drug Start: 01-11-2025 take 1 capsule by mouth once daily Aspirin 81 mg capsule Active 81 mg PO DAILY January 11, 2025 12:00am atorvastatin 10 mg oral tablet (10 sources) HMG-CoA Reductase Inhibitor Start: 05-19-2022 take 1 tablet by mouth at bedtime Atorvastatin 10 mg tablet Active 10 mg PO AT BEDTIME May 19, 2022 1:00am cetirizine hydrochloride 10 mg oral tablet (1 source) Histamine-1 Receptor Antagonist Start: 01-11-2025 take 1 tablet by mouth once daily Cetirizine 10 mg tablet Active 10 mg PO DAILY January 11, 2025 12:00am citalopram 20 mg oral tablet (2 sources) Serotonin Reuptake Inhibitor Start: 07-17-2011 citalopram 20 mg oral tablet Dose : 20 mg = 1 tab(s), PO, Daily, # 30 tab(s), 0 Refill(s) Start Date: 07/17/11 Status: Ordered DULoxetine 30 mg delayed release oral capsule (11 sources) Serotonin and Norepinephrine Reuptake Inhibitor Start: 01-11-2025 Duloxetine 30 mg capsule,delayed release(DR/EC) Active 30 mg PO 799January 11, 2025 12:00am Start: 05-19-2022 take 1 capsule by [facility] at bedtime Duloxetine (Cymbalta) 60 mg capsule,delayed release(DR/EC) Active 60 mg PO AT BEDTIME May 19, 2022 1:00am ferrous sulfate 28 mg oral tablet (1 source) Start: 05-19-2022 take 28 mg by mouth once daily Ferrous Sulfate Active 28 MG PO DAILY May 19, 2022 12:00am Ferrous Sulfate 28 mg iron Tablet (9 sources) Start: 05-19-2022 take 1 tablet by mouth once daily Ferrous Sulfate 28 mg iron Tablet Active 28 mg PO DAILY May 19, 2022 1:00am 30 actuat fluticasone furoate 0.2 mg/actuat / vilanterol 0.025 mg/actuat dry powder inhaler (10 sources) Corticosteroid, beta2-Adrenergi c Agonist Start: 05-19-2022 Fluticasone Furoate-Vilanterol 200-25 mcg/dose blister with device Active 1 NMA INHALATION DAILY May 19, 2022 1:00am Start: 05-19-2022 Fluticasone Fu roate-Vilanterol Active 1 INH INHALATION DAILY May 19, 2022 12:00am folic acid 1 mg oral tablet (10 sources) Start: 05-19-2022 take 2 tablets by mouth once daily Folic Acid 1 mg tablet Active 2 mg PO DAILY May 19, 2022 1:00am Start: 05-19-2022 take 2 tablets by [facility] twice daily Folic Acid 1 mg tablet Active 2 mg PO TWICE A DAY May 19, 2022 1:00am Start: 05-19-2022 take 2 mg by mouth twice daily Folic Acid Active 2 MG PO TWICE A DAY May 19, 2022 12:00am hydroxychloroquine sulfate 200 mg oral tablet (10 sources) Antimalarial, Antirheumatic Agent Start: 05-19-2022 take 1 tablet by mouth twice daily Hydroxychloroquine 200 mg tablet Active 200 mg PO TWICE A DAY May 19, 2022 1:00am levothyroxine sodium 0.137 mg oral tablet (2 sources) l-Thyroxine Start: 12-11-2024 take 1 tablet by mouth once daily Levothyroxine (Levothyroxine 137 Mcg Tablet) 137 mcg tablet Active 137 ug PO DAILY December 11, 2024 12:00am linaclotide 0.29 mg oral capsule (2 sources) Guanylate Cyclase-C Agonist Start: 12-11-2024 take 1 capsule by mouth once daily as needed Linaclotide (Linzess) 290 mcg capsule Active 290 ug PO DAILY as needed for ABD DISCOMFORT December 11, 2024 12:00am methotrexate 2.5 mg oral tablet (10 sources) Folate Analog Metabolic Inhibitor Start: 05-19-2022 Methotrexate Sodium 2.5 mg tablet Active 20 mg PO TH May 19, 2022 1:00am Start: 05-19-2022 Methotrexate S odium Active 20 MG PO May 19, 2022 12:00am Multivitamin preparation (1 source) Start: 05-19-2022 take 1 tablet by mouth once daily Multivitamin Active 1 TABLET PO DAILY May 19, 2022 12:00am Multivitamin Tablet (9 sources) Start: 05-19-2022 Multivitamin Tablet Active 1 {tbl} PO DAILY May 19, 2022 1:00am ondansetron 4 mg disintegrating oral tablet (14 sources) Serotonin-3 Receptor Antagonist Start: 10-14-2024 End: 12-11-2024 take 1 tablet by mouth every eight hours as needed for nausea Ondansetron 4 mg tablet,disintegrat ing Active 4 mg PO EVERY 8 HOURS NEEDED as needed for Nausea 10 3 0 October 14, 2024 10:06pm pantoprazole 40 mg delayed release oral tablet (10 sources) Proton Pump Inhibitor Start: 05-19-2022 take 1 tablet by mouth once daily Pantoprazole 40 mg tablet,delayed release (DR/EC) Active 40 mg PO DAILY May 19, 2022 1:00am polyethylene glycol 3350 735523 mg / potassium chloride 2970 mg / sodium bicarbonate 6740 mg / sodium chloride 5860 mg / sodium sulfate 35836 mg powder for oral solution (1 source) Osmotic Laxative Start: 12-12-2024 Peg 3350-Electrolytes (Golytely) 236-22.74-6.74 -5.86 gram recon soln Active 240 mL PO Q10M 4000 0 December 12, 2024 12:00am until fecal effluent is clear prazosin 1 mg oral capsule (2 sources) alpha-Adrenergic Winter Start: 12-11-2024 take 1 capsule by mouth at bedtime Prazosin 1 mg capsule Active 1 mg PO AT BEDTIME December 11, 2024 12:00am predniSONE 10 mg oral tablet (10 sources) Start: 05-19-2022 Prednisone 10 mg tablet Active 10 mg PO NEEDED as needed for RHEUMATOID ARTHRITIS May 19, 2022 1:00am Tirzepatide (Weight Loss) (6 sources) Start: 10-17-2024 Tirzepatide (Weight Loss) (Zepbound) [...] Status: Ordered leucovorin 15 mg oral tablet (10 sources) Folate Analog Start: 05-19-2022 take 1 [...] source) Hyperlipidemia, unspecified; Translations: [Hyperlipidemia, unspecified] Onset: Chronic Esophageal disorders (1 source) Gastroesophageal reflux disease without esophagitis; Translations: [Gastro-esophageal reflux disease without esophagitis] Chronic Essential hypertension (1 source) Essential (primary) hypertension; Translations: [Essential (primary) hypertension] Onset: 5 Chronic Gastrointestinal hemorrhage (18 sources) Gastrointestinal hemorrhage; Translations: [Hemorrhage of anus and rectum] Onset: 5 10-17-2024 Episodic Other aftercare (1 source) Long-term current use of drug therapy; Translations: [Other prison (current) drug therapy] Episodic Other connective tissue disease (1 source) Fibromyalgia; Translations: [Fibromyalgia] Episodic Other gastrointestinal disorders (1 source) 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; 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] Chronic Other gastrointestinal disorders (13 sources) Diarrhea; Translations: [Diarrhea, unspecified] 10-17-2024 Episodic Other gastrointestinal disorders (2 sources) Diarrhea, unspecified; Translations: [Diarrhea, unspecified] Onset: 5 [...] Range Facility Colonoscopy Reporton 025 Colonoscopy Report [facility] Medical Records Department [address] [place] [address] Colonoscopy Report MR#: [id number] Acct: [id number] Name: NGOC KAUFFMAN Rep #: [id number] : 1980 44 From: Misael Moore DO PCP: Dr. Coral Martinez MD Status:[facility] Patient Name: Ngoc Kauffman Procedure Date: 01/16/2025 6:13 AM Date of : 1980 Age: 44 Procedure: Colonoscopy Indications: Screening for colorectal malignant neoplasm Providers: Misael Moore DO Referring MD: Coral [...] Examination: clear to auscultation. CV Examination: normal. Prophylactic Antibiotics: The patient does not require prophylactic antibiotics. Prior Anticoagulants: The patient has taken no anticoagulant or antiplatelet agents. ASA Grade Assessment: II - A patient [...] through the anus and advanced to the cecum, identified by appendiceal orifice and ileocecal valve. The colonoscopy was performed without difficulty. The patient tolerated the procedure well. The quality of the bowel preparation was adequate. The ileocecal valve, appendiceal orifice, and rectum were photographed. Scope In: 6:49:45 AM Scope Withdrawal Time 0 hours 14 minutes 48 seconds Scope Out: 7:07:59 AM Total Procedure Duration Time 0 hours 18 minutes 14 seconds Findings: The perianal and digital rectal examinations were normal. A 5 mm polyp was found in the transverse colon. The polyp was sessile. The polyp was removed with a cold biopsy forceps. Resection and retrieval were complete. Verification of patient identification for the specimen was done. Estimated blood loss was minimal. A 10 mm polyp was found in the ascending colon. The polyp was sessile. The polyp was removed with a hot snare. Resection and retrieval were complete. Verification of patient identification for the specimen was done. Estimated blood loss was minimal. Multiple small and large-mouthed diverticula were found in the recto-sigmoid colon, sigmoid colon, descending colon, splenic flexure and transverse colon. Non-bleeding internal hemorrhoids were found during retroflexion. The hemorrhoids were mild and Grade II (internal hemorrhoids that prolapse but reduce spontaneously). Impression: - One 5 mm polyp in the transverse colon, removed with a cold biopsy forceps. Resected and retrieved. - One 10 mm polyp in the ascending colon, removed with a hot snare. Resected and retrieved. - Diverticulosis in the recto-sigmoid colon, in the sigmoid colon, in the descending colon, at the splenic flexure and in the transverse colon. - Non-bleeding internal hemorrhoids. Recommendation: - Repeat colonoscopy in 5 years for surveillance. - Continue present medications. Procedure Code(s): --- Professional --- 49747, Colonoscopy, flexible; with removal of tumor(s), polyp(s), or other lesion(s) by snare technique 17280, 59, Colonoscopy, flexible; with biopsy, single or multiple CPT copyright 2021 [employer]. All rights reserved. The codes documented in this report are preliminary and upon manufacturing engineer automotive review may be revised to meet current compliance requirements. Misael Moore DO 01/16/2025 7:17:59 AM This report has b (more content not included)... Normal [facility] MR/OP.PROVATon 01-16-2025 MR/OP.[facility] Medical Records Department [address] [place] [address] Provation Physician Letter MR#: [id number] Acct: [id number] Name: NGOC KAUFFMAN Rep #: [id number] : 1980 44 From: Misael Moore DO PCP: Dr. Coral Martinez MD Status:[facility] 01/16/2025 Coral Martinez Md Re : Colonoscopy procedure for Ngoc Kauffman Dear Juan This procedure was performed on Thursday, January 16, 2025. My impressions and recommendations are as follows: Impressions : - One 5 mm polyp in the transverse colon, removed with a cold biopsy forceps. Resected and retrieved. - One 10 mm polyp in the ascending colon, removed with a hot snare. Resected and retrieved. - Diverticulosis in the recto-sigmoid colon, in the sigmoid colon, in the descending colon, at the splenic flexure and in the transverse colon. - Non-bleeding internal hemorrhoids. Recommendations : - Repeat colonoscopy in 5 years for surveillance. - Continue present medications. My findings are described in the full procedure note, which is enclosed. If I can be of further assistance, please feel free to contact me at . Sincerely, Misael Moore DO 01/16/2025 7:17:59 AM This report has been signed electronically. 01/16/25717 Date Misael Moore DO Cosigner Signature: Date (if indicated) CC: Dr. Coral Martinez MD; Misael Moore DO Date Dictated: 01/16/25612 Date Transcribed: Cisco Network Engineer: RF Signed [facility] MR/POSTOP.[facility] 01-16-2025 MR/POSTOP.[facility] Medical Records Department [address] [place] [address] Anesthesia Postop Eval I 01/16/25720 MR#: [id number] Acct: [id number] Name: NGOC KAUFFMAN Rep #: [id number] : 1980 44 From: Nomi Moses PCP: Dr. Coral Martinez MD Status:REG [facility] Y Race: C Location: [place] [address] Anesthesia: Postop Eval I Current Vital Signs Temperature: 97.8 F Pulse Rate: 80 Blood Pressure: 101/54 Respiratory Rate: 16 Pulse Ox: 100 Oxygen Delivery Method: Room Air Assessment Airway patent: Yes Spontaneous unlabored respirations: Yes Mental status: Awake and Calm nausea: No Vomiting: No Anesthesia Complication: No Fluid Hydration Crystalloid volume administer (ml): 700 Total IV fluid infused: 700 Progress Note Anesthesia document: Postop Eval 1 completed: Yes 01/16/25721 Date Nomi Caceresmaryumang Signature: Date CC: Signed [facility] MR/[id number] 01-16-2025 [facility] Medical Records Department [address] [place] [address] Anesthesia Postop Eval II 01/16/25825 MR#: [id number] Acct: [id number] Name: NGOC KAUFFMAN Rep #: [id number] : 1980 44 From: Junior Núñez MD PCP: Dr. Coral Martinez MD Status:[facility] Y Race: C Location: EN Anesthesia Postop Eval I Sum Postop Eval Completion status Anesthesia document: Postop Eval 1 completed: Yes Anesthesia Postop Eval I Summary Anesthesia Postop Eval I Summary: Anesthesia Postop Eval I: Assessment Summary Airway patent Yes 01/16/25 07:22 [email or web address] Spontaneous unlabored Yes 01/16/25 07:22 [email or web address] respirations Mental status Awake,Calm 01/16/25 07:22 [email or web address] nausea No 01/16/25 07:22 [email or web address] Vomiting No 01/16/25 07:22 [email or web address] Anesthesia Postop Eval I: Fluid Summary Crystalloid volume administer 700 01/16/25 07:22 [email or web address] (ml) Colloids volume administered ( ml) Blood Product volume administered (ml) Total IV fluid infused 700 01/16/25 07:22 [email or web address] Anesthesia Postop Eval I: Summary Notes Anesthesia Complication No 01/16/25 07:22 [email or web address] Anesthesia Complication Comment: Post-operative progress note Anesthesia: Postop Eval II Evaluation Mental status: Awake and Calm Pain Level: 0 nausea: No Vomiting: No Complications Anesthesia Complication: No 01/16/2528 Date Junior Núñez MD Cosigner Signature: Date CC: Signed [facility] Colonoscopy Reporton 025 Colonoscopy Report [facility] Medical Records Department [address] [place] [address] [place] [address] Colonoscopy Report MR#: [id number] Acct: [id number] Name: NGOC KAUFFMAN Rep #: [id number] : 1980 44 From: Misael Moore DO PCP: Dr. Coral Martinez MD Status[place] Patient Name: Ngoc Kauffman Procedure Date: 12/12/2024 6:26 AM Date of : 1980 Age: 44 Procedure: Colonoscopy Indications: Chronic diarrhea, Hematochezia Providers: Msiael Moore DO Referring MD: Coral Martinez Md [...] was poor. Procedure Code(s): --- Professional --- 79293, 53, Colonoscopy, flexible; diagnostic, including collection of specimen(s) by brushing or washing, when performed (separate procedure) CPT copyright 2021 [employer]. All rights reserved. The codes documented in this report are preliminary and upon manufacturing engineer automotive review may be revised to meet current compliance requirements. Misael Moore DO 12/12/2024 7:03:41 AM This report has been signed electronically. Number of Addenda: 0 Note Initiated On: 12/12/2024 6:26 AM 12/12/24 0704 Date Misael Davila Signature: Date (if indicated) CC: Dr. Coral Martinez MD; Misael Moore DO Date Dictated: 12/12/24625 Date Transcribed: Cisco Network Engineer: RF Signed [facility] MR/OP.[place] 12-12-2024 MR/OP.[facility] Medical Records Department [address] [place] [address] Provation Physician Letter MR#: [id number] Acct: [id number] Name: NGOC KAUFFMAN Rep #: [id number] : 1980 44 From: Misael Moore DO PCP: Dr. Coral Martinez MD Status:[facility] [place] 12/12/2024 Coral Martinez Md Re : Colonoscopy procedure for Ngoc Kauffman Sebastian Martinez This procedure was performed on Thursday, December [...] has been signed electronically. 12/12/24703 Date Misael Davila Signature: Date (if indicated) CC: Dr. Coral Martinez MD; Misael Moore DO Date Dictated: 12/12/24625 Date Transcribed: [employer] Network Engineer: MASSIEL Signed [facility] MR/POSTOP.ANEon 12-12-2024 MR/POSTOP.[facility] Medical Records Department [address] [place] [address] Anesthesia Postop Eval I 12/12/24706 MR#: [id number] Acct: [id number] Name: NGOC KAUFFMAN Rep #: [id number] : 1980 44 From: Andrew Cassidy CRNA PCP: Dr. Coral Martinez MD Status:[facility] Y Race: C Location: [place] [address] Anesthesia: Postop Eval I Current Vital Signs Temperature: 97 F Pulse Rate: 75 Blood Pressure: 97/54 Respiratory Rate: 16 Pulse Ox: 100 Assessment Airway patent: Yes Spontaneous unlabored respirations: Yes nausea: No Vomiting: No Anesthesia Complication: No Fluid Hydration Crystalloid volume administer (ml): 100 Total IV fluid infused: 100 Progress Note Anesthesia document: Postop Eval 1 completed: Yes 12/12/24706 Date Andrew Khahn COOLING PIPE INSPECTOR Cosigner Signature: Date CC: Signed [facility] MR/ZIOHWEOQ1ja 12-12-2024 MR/POSTOPAN2 [facility] Medical Records Department [address] [place] [address] Anesthesia Postop Eval II 12/12/242016 MR#: [id number] Acct: [id number] Name: NGOC KAUFFMAN Rep #: [id number] : 1980 44 From: Travis Kearns MD PCP: Dr. Coral Martinez MD Status:[facility] Y Race: C Location: EN Anesthesia Postop Eval I Sum Postop Eval Completion status Anesthesia document: Postop Eval 1 completed: Yes Anesthesia Postop Eval I Summary Anesthesia Postop Eval I Summary: Anesthesia Postop Eval I: Assessment Summary Airway patent Yes 12/12/24 07:07 COOLING PIPE INSPECTOR.TNES Spontaneous unlabored Yes 12/12/24 07:07 COOLING PIPE INSPECTOR.TNES respirations Mental status nausea No 12/12/24 07:07 COOLING PIPE INSPECTOR.TNES Vomiting No 12/12/24 07:07 COOLING PIPE INSPECTOR.TNES Anesthesia Postop Eval I: Fluid Summary Crystalloid volume administer 100 12/12/24 07:07 COOLING PIPE INSPECTOR.TNES (ml) Colloids volume administered ( ml) Blood Product volume administered (ml) Total IV fluid infused 100 12/12/24 07:07 COOLING PIPE INSPECTOR.TNES Anesthesia Postop Eval I: Summary Notes Anesthesia Complication No 12/12/24 07:07 COOLING PIPE INSPECTOR.TNES Anesthesia Complication Comment: Post-operative progress note Anesthesia: Postop Eval II Evaluation Mental status: Awake and Calm Pain Level: 1 nausea: No Vomiting: No Complications Anesthesia Complication: No 12/12/242016 Date Travis Kearns MD Cosigner Signature: Date CC: Signed [facility] Absolute lymphocyte countOrd ered By: Clarice Liriano on 11-13-2024 Lymphocytes Auto (Unsp spec) [#/Vol] 1.87 10*3/uL 0.83-4.51 [facility] Absolute neutrophil countOrd ered By: Clarice Liriano on 11-13-2024 Neutrophils (Bld) [#/Vol] 4.1 10*3/uL 2.0-7.7 [facility] Anion gap in Serum or Plasma Ordered By: Clarice Liriano on 11-13-2024 Anion gap [Moles/Vol] 12 mmol/L 5-15 [facility] Automated lymphocyte count a s percentage of total leukocytesOrdered By: Clarice Liriano on 11-13-2024 Lymphocytes/100 WBC Auto (Unsp spec) 26.9 % 19-41 [facility] BUN/creatinine ratioOrdered By: Claricehanane Liriano on 11-13-2024 Urea nitrogen/Creatinine [Mass ratio] 10.5 mg/mg 10-20 [facility] Basophil percentageOrdered B y: Clarice Liriano on 11-13-2024 Basophils/100 WBC (Bld) 0.4 % 0-1 [facility] Bilirubin, totalOrdered By: Clarice Liriano on 11-13-2024 Bilirubin [Mass/Vol] 0.42 mg/dL 0.00-1.30 [facility] CBC W/Diff, Automatedon Absolute Lymph 1.87 X10 3/uL Normal 0.83-4.51 [facility] Comment on above: Performed By: #### L 100.0100, L500.4050 #### [facility] [facility] [address] [place], [address] Absolute Neut 4.1 X10 3/uL Normal 2.0-7.7 [facility] Comment on above: Performed By: #### L 100.0100, L500.4050 #### [facility] [address] [place], [address] Basophils/100 WBC (Bld) 0.4 % Normal 0-1 [facility] Comment on above: Performed By: #### L 100.0100, L500.4050 #### [facility] [address] [place], [address] Eosinophils/100 WBC (Bld) 1.4 % Normal 0-5 [facility] Comment on above: Performed By: #### L 100.0100, L500.4050 #### [facility] [address] [place], [address] Erythrocyte distribution width (RBC) [Ratio] 13.7 % Normal 11.6-14.6 [facility] Comment on above: Performed By: #### L 100.0100, L500.4050 #### [facility] [address] [place], [address] Hematocrit (Bld) [Volume fraction] 37.8 % Normal 37-47 [facility] Comment on above: Performed By: #### L 100.0100, L500.4050 #### [facility] [address] [place], [address] Hemoglobin (Bld) [Mass/Vol] 12.6 g/dL Normal 12.0-15.0 [facility] Comment on above: Performed By: #### L 100.0100, L500.4050 #### [facility] [address] [place], [address] IG% 0.400 Normal 0.0-0.9 [facility] Comment on above: Result Comment: IG% - Immature Granulocytes (promyelocytes, myelocytes and metamyelocytes) > 1% indicates that a LEFT SHIFT is Present. Performed By: #### L 100.0100, L500.4050 #### [facility] [address] [place], [address] Lymphocytes/100 WBC (Bld) 26.9 % Normal 19-41 [facility] Comment on above: Performed By: #### L 100.0100, L500.4050 #### [facility] [address] [place], [address] MCH (RBC) [Entitic mass] 32.1 pg High 27.0-32.0 [facility] Comment on above: Performed By: #### L 100.0100, L500.4050 #### [facility] [address] [place], [address] MCHC (RBC) [Mass/Vol] 33.3 g/dL Normal 32-36 [facility] Comment on above: Performed By: #### L 100.0100, L500.4050 #### [facility] [address] [place], [address] MCV (RBC) [Entitic vol] 96.2 fL Normal 81-99 [facility] Comment on above: Performed By: #### L 100.0100, L500.4050 #### [facility] [address] [place], [address] Monocytes/100 WBC (Bld) 11.7 % High 0-10 [facility] Comment on above: Performed By: #### L 100.0100, L500.4050 #### [facility] [address] [place], [address] Neutrophils/100 WBC (Bld) 59.2 % Normal 47-70 [facility] Comment on above: Performed By: #### L 100.0100, L500.4050 #### [facility] [address] [place], [address] Nucleated RBC (Bld) [#/Vol] 0 10*3/uL Normal 0-5 [facility] Comment on above: Performed By: #### L 100.0100, L500.4050 #### [facility] [address] [place], [address] Platelet mean volume (Bld) [Entitic vol] 10.5 fL Normal 6.2-12.0 [facility] Comment on above: Performed By: #### L 100.0100, L500.4050 #### [facility] [address] [place], [address] Platelets (Bld) [#/Vol] 233 10*3/uL Normal 150-450 [facility] Comment on above: Performed By: #### L 100.0100, L500.4050 #### [facility] [address] [place], [address] RBC (Bld) [#/Vol] 3.93 10*6/uL Low 4.2-5.4 [facility] Comment on above: Performed By: #### L 100.0100, L500.4050 #### [facility] [address] [place], [address] RDW SD 48.8 fl High 35.1-43.9 [facility] Comment on above: Performed By: #### L 100.0100, L500.4050 #### [facility] [address] [place], [address] WBC (Bld) [#/Vol] 7.0 10*3/uL Normal 4.4-11.0 [facility] Comment on above: Performed By: #### L 100.0100, L500.4050 #### [facility] [address] [place], [address] Carbon dioxide, total [Moles /volume] in Central venous bloodOrdered By: Clarice Liriano on 11-13-2024 CO2 [Moles/Vol] 20.3 mmol/L Low 21.0-32.0 [facility] Chloride assayOrdered By: Lynn Liriano on 11-13-2024 Chloride [Moles/Vol] 105 mmol/L 98-108 [facility] Comprehensive Metabolic Prof ilon 11-13-2024 Albumin [Mass/Vol] 4.3 g/dL Normal 3.5-5.0 [facility] Comment on above: Performed By: #### L 100.0100, L500.4050 #### [facility] [address] [place], [address] Albumin/Globulin [Mass ratio] 1.6 {ratio} Normal 0.9-2.4 [facility] Comment on above: Performed By: #### L 100.0100, L500.4050 #### [facility] [address] [place], [address] ALK PHOS 61 U/L Normal 35-104 [facility] Comment on above: Performed By: #### L 100.0100, L500.4050 #### [facility] [address] [place], [address] ALT [Catalytic activity/Vol] 25 U/L Normal <=34 [facility] Comment on above: Performed By: #### L 100.0100, L500.4050 #### [facility] [address] [place], [address] AST [Catalytic activity/Vol] 19 U/L Normal <=31 [facility] Comment on above: Performed By: #### L 100.0100, L500.4050 #### [facility] [address] [place], [address] Bilirubin [Mass/Vol] 0.42 mg/dL Normal 0.00-1.30 [facility] Comment on above: Performed By: #### L 100.0100, L500.4050 #### [facility] [address] [place], [address] BUN/CRE 10.5 RATIO Normal 10-20 [facility] Comment on above: Performed By: #### L 100.0100, L500.4050 #### [facility] [address] [place], [address] Calcium [Mass/Vol] 9.4 mg/dL Normal 7.6-11.0 [facility] Comment on above: Performed By: #### L 100.0100, L500.4050 #### [facility] [address] [place], [address] Chloride [Moles/Vol] 105 mmol/L Normal 98-108 [facility] Comment on above: Performed By: #### L 100.0100, L500.4050 #### [facility] [address] [place], [address] CO2 [Moles/Vol] 20.3 mmol/L Low 21.0-32.0 [facility] Comment on above: Performed By: #### L 100.0100, L500.4050 #### [facility] [address] [place], [address] Creatinine [Mass/Vol] 0.84 mg/dL Normal 0.70-1.20 [facility] Comment on above: Performed By: #### L 100.0100, L500.4050 #### [facility] [address] [place], [address] GAP 12 Normal 5-15 [facility] Comment on above: Performed By: #### L 100.0100, L500.4050 #### [facility] [address] [place], [address] GFR/1.73 sq M.predicted among non-blacks MDRD (S/P/Bld) [Vol rate/Area] 88 mL/min/{1.73_m2} Normal >60 [facility] Comment on above: Result Comment: mL/m in/1.73m2 CKD-EPI Creatinine Equation (2020) Performed By: #### L 100.0100, L500.4050 #### [facility] [address] [place], [address] Globulin (S) [Mass/Vol] 2.8 g/dL Normal 2.2-4.2 [facility] Comment on above: Performed By: #### L 100.0100, L500.4050 #### [facility] [address] [place], [address] Glucose [Mass/Vol] 96 mg/dL Normal 70-99 [facility] Comment on above: Performed By: #### L 100.0100, L500.4050 #### [facility] [address] [place], [address] Potassium [Moles/Vol] 4.2 mmol/L Normal 3.3-5.1 [facility] Comment on above: Performed By: #### L 100.0100, L500.4050 #### [facility] [address] [place], [address] Sodium [Moles/Vol] 137 mmol/L Normal 133-145 [facility] Comment on above: Performed By: #### L 100.0100, L500.4050 #### [facility] [address] [place], [address] T PROT 7.0 g/dL Normal 5.9-8.4 [facility] Comment on above: Performed By: #### L 100.0100, L500.4050 #### [facility] [address] [place], [address] Urea nitrogen [Mass/Vol] 9 mg/dL Normal 4-19 [facility] Comment on above: Performed By: #### L 100.0100, L500.4050 #### [facility] [address] [place], [address] Eosinophil percentageOrdered By: Clarice Liriano on 11-13-2024 Eosinophils/100 WBC (Bld) 1.4 % 0-5 [facility] Erythrocyte distribution wid th ratioOrdered By: Clarice Liriano on 11-13-2024 Erythrocyte distribution width (RBC) [Ratio] 13.7 % 11.6-14.6 [facility] Erythrocyte distribution wid th standard deviationOrdered By: Clarice Liriano on 11-13-2024 Erythrocyte distribution width (RBC) [Ratio] 48.8 fl High 35.1-43.9 [facility] Glomerular filtration rate ( GFR) estimation/1.73 sq m using serum, plasma, or whole bOrdered By: Clarice Liriano on 11-13-2024 GFR/1.73 sq M.predicted among non-blacks MDRD (S/P/Bld) [Vol rate/Area] 88 mL/min/{1.73_m2} >60 [facility] Comment on above: mL/min/1.73m2 CKD-EP I Creatinine Equation (2020) Hematocrit Auto (Bld) [Volum e fraction]Ordered By: Clarice Liriano on 11-13-2024 Hematocrit (Bld) [Volume fraction] 37.8 % 37-47 [facility] Hemoglobin measurementOrdere d By: Clarice Liriano on 11-13-2024 Hemoglobin (Bld) [Mass/Vol] 12.6 g/dL 12.0-15.0 [facility] Immature granulocytes/100 WB C Auto (Bld)Ordered By: Clarice Liriano on 11-13-2024 Immature granulocytes/100 WBC (Bld) 0.400 % 0.0-0.9 [facility] Comment on above: IG% - Immature Granu locytes (promyelocytes, myelocytes and metamyelocytes) > 1% indicates that a LEFT SHIFT is Present. Laboratory - Chemistry and C hemistry - challengeOrdered By: Clarice Liriano on 11-13-2024 AST [Catalytic activity/Vol] 19 U/L <32 [facility] MCV (mean corpuscular volume ) determinationOrdered By: Clarice Liriano on 11-13-2024 MCV (RBC) [Entitic vol] 96.2 fL 81-99 [facility] Mean corpuscular hemoglobin (MCH) determinationOrdered By: Clarice Liriano 11-13-2024 MCH (RBC) [Entitic mass] 32.1 pg High 27.0-32.0 [facility] Mean corpuscular hemoglobin concentration (MCHC) determinationOrdered By: Clarice Liriano 11-13-2024 MCHC (RBC) [Mass/Vol] 33.3 g/dL 32-36 [facility] Mean platelet volume determi nationOrdered By: Clarice Liriano on 11-13-2024 Platelet mean volume (Bld) [Entitic vol] 10.5 fL 6.2-12.0 [facility] Monocyte percentageOrdered B y: Clarice Liriano on 11-13-2024 Monocytes/100 WBC (Bld) 11.7 % High 0-10 [facility] Neutrophil percentageOrdered By: Clarice Liriano on 11-13-2024 Neutrophils/100 WBC (Bld) 59.2 % 47-70 [facility] Nucleated red blood cell per centageOrdered By: Clarice Liriano on 11-13-2024 Nucleated RBC/100 WBC (Bld) [Ratio] 0 % 0-5 [facility] Platelet countOrdered By: Lynn Liriano on 11-13-2024 Platelets (Bld) [#/Vol] 233 10*3/uL 150-450 [facility] Potassium measurement (mass/ volume)Ordered By: Clarice Liriano on 11-13-2024 Potassium (Unsp spec) [Mass/Vol] 4.2 mmol/L 3.3-5.1 [facility] RBC Auto (Bld) [#/Vol]Ordere d By: Clarice Liriano on 11-13-2024 RBC (Bld) [#/Vol] 3.93 10*6/uL Low 4.2-5.4 [facility] Serum creatinine measurement (mass/volume)Ordered By: Clarice Liriano on 11-13-2024 Creatinine [Mass/Vol] 0.84 mg/dL 0.70-1.20 [facility] Serum globulin measurementOr dered By: Clarice Liriano on 11-13-2024 Globulin (S) [Mass/Vol] 2.8 g/dL 2.2-4.2 [facility] Serum glucose measurement (m ass/volume)Ordered By: Clarice Liriano on 11-13-2024 Glucose [Mass/Vol] 96 mg/dL 70-99 [facility] Serum or plasma alanine jordan otransferase (ALT) measurementOrdered By: Clarice Liriano on 11-13-2024 ALT [Catalytic activity/Vol] 25 U/L <35 [facility] Serum or plasma albumin chey urement (mass/volume)Ordered By: Clarice Liriano on 11-13-2024 Albumin [Mass/Vol] 4.3 g/dL 3.5-5.0 [facility] Serum or plasma albumin/glob ulin mass ratioOrdered By: Clarice Liriano on 11-13-2024 Albumin/Globulin [Mass ratio] 1.6 {ratio} 0.9-2.4 [facility] Serum or plasma alkaline yony sphatase measurementOrdered By: Clarice Liriano on 11-13-2024 ALP [Catalytic activity/Vol] 61 U/L 35-104 [facility] Serum or plasma calcium chey urement (mass/volume)Ordered By: Clarice Liriano on 11-13-2024 Calcium [Mass/Vol] 9.4 mg/dL 7.6-11.0 [facility] Serum or plasma urea nitroge n measurement (mass/volume)Ordered By: Clarice Liriano on 11-13-2024 Urea nitrogen [Mass/Vol] 9 mg/dL 4-19 [facility] Sodium levelOrdered By: Elana Liriano on 11-13-2024 Sodium [Moles/Vol] 137 mmol/L 133-145 [facility] Total proteinOrdered By: Jersey Liriano on 11-13-2024 Protein [Mass/Vol] 7.0 g/dL 5.9-8.4 [facility] White blood cell (WBC) count Ordered By: Clarice Liriano on 11-13-2024 WBC (Bld) [#/Vol] 7.0 10*3/uL 4.4-11.0 [facility] Calprotectin, Stoolon [address] 443 ug/g Abnormal 0-120 [facility] Comment on above: Result Comment: Conc entration Interpretation Follow-Up < 5 - 50 ug/g Normal None >50 -120 ug/g Borderline Re-evaluate in 4-6 weeks >120 ug/g Abnormal Repeat as clinically indicated Performed at: - [address] [id number] Patient Care Manager: Fracisco Gallagher MD, Phone: [phone] Performed By: #### L 4876.3844 #### [facility] [address] [place] [address], [address] Calprotectin stoolOrdered By : Sheila Ray on 10-20-2024 Calprotectin stool 443 ug/g High 0-120 [facility] Comment on above: Concentration Interp retation Follow-Up< 5 - 50 ug/g Normal None>50 -120 ug/g Borderline Re-evaluate in 4-6 weeks >120 ug/g Abnormal Repeat as clinically indicatedPerformed at: [facility] [id number] [place], [place] [id number] Director: Fracisco Gallagher MD, Phone: [phone] Absolute lymphocyte countOrd ered By: Sheila Ray on 10-17-2024 Lymphocytes Auto (Unsp spec) [#/Vol] 2.39 10*3/uL 0.83-4.51 [facility] Absolute neutrophil countOrd ered By: Sheila Ray on 10-17-2024 Neutrophils (Bld) [#/Vol] 4.4 10*3/uL 2.0-7.7 [facility] Automated lymphocyte count a s percentage of total leukocytesOrdered By: Sheila Ray on 10-17-2024 Lymphocytes/100 WBC Auto (Unsp spec) 31.7 % 19-41 [facility] Basophil percentageOrdered B y: Sheila Ray on 10-17-2024 Basophils/100 WBC (Bld) 0.5 % 0-1 [facility] CBC W/Diff, Automatedon 10-08 0-2024 Absolute Lymph 2.39 X10 3/uL Normal 0.83-4.51 [facility] Comment on above: Performed By: #### L 501.6710, L100.0100, L101.9900 #### [facility] [address] [place], [address] Absolute Neut 4.4 X10 3/uL Normal 2.0-7.7 [facility] Comment on above: Performed By: #### L 501.6710, L100.0100, L101.9900 #### [facility] [address] [place], [address] Basophils/100 WBC (Bld) 0.5 % Normal 0-1 [facility] Comment on above: Performed By: #### L 501.6710, L100.0100, L101.9900 #### [facility] [address] [place], [address] Eosinophils/100 WBC (Bld) 1.3 % Normal 0-5 [facility] Comment on above: Performed By: #### L 501.6710, L100.0100, L101.9900 #### [facility] [address] [place], [address] Erythrocyte distribution width (RBC) [Ratio] 13.1 % Normal 11.6-14.6 [facility] Comment on above: Performed By: #### L 501.6710, L100.0100, L101.9900 #### [facility] [address] [place], [address] Hematocrit (Bld) [Volume fraction] 39.0 % Normal 37-47 [facility] Comment on above: Performed By: #### L 501.6710, L100.0100, L101.9900 #### [facility] [address] [place], [address] Hemoglobin (Bld) [Mass/Vol] 12.8 g/dL Normal 12.0-15.0 [facility] Comment on above: Performed By: #### L 501.6710, L100.0100, L101.9900 #### [facility] [address] [place], [address] IG% 0.300 Normal 0.0-0.9 [facility] Comment on above: Result Comment: IG% - Immature Granulocytes (promyelocytes, myelocytes and metamyelocytes) > 1% indicates that a LEFT SHIFT is Present. Performed By: #### L 501.6710, L100.0100, L101.9900 #### [facility] [address] [place], [address] Lymphocytes/100 WBC (Bld) 31.7 % Normal 19-41 [facility] Comment on above: Performed By: #### L 501.6710, L100.0100, L101.9900 #### [facility] [address] [place], [address] MCH (RBC) [Entitic mass] 31.4 pg Normal 27.0-32.0 [facility] Comment on above: Performed By: #### L 501.6710, L100.0100, L101.9900 #### [facility] [address] [place], [address] MCHC (RBC) [Mass/Vol] 32.8 g/dL Normal 32-36 [facility] Comment on above: Performed By: #### L 501.6710, L100.0100, L101.9900 #### [facility] [address] [place], [address] MCV (RBC) [Entitic vol] 95.6 fL Normal 81-99 [facility] Comment on above: Performed By: #### L 501.6710, L100.0100, L101.9900 #### [facility] [address] [place], [address] Monocytes/100 WBC (Bld) 7.3 % Normal 0-10 [facility] Comment on above: Performed By: #### L 501.6710, L100.0100, L101.9900 #### [facility] [address] [place], [address] Neutrophils/100 WBC (Bld) 58.9 % Normal 47-70 [facility] Comment on above: Performed By: #### L 501.6710, L100.0100, L101.9900 #### [facility] [address] [place], [address] Nucleated RBC (Bld) [#/Vol] 0 10*3/uL Normal 0-5 [facility] Comment on above: Performed By: #### L 501.6710, L100.0100, L101.9900 #### [facility] [address] [place], [address] Platelet mean volume (Bld) [Entitic vol] 10.4 fL Normal 6.2-12.0 [facility] Comment on above: Performed By: #### L 501.6710, L100.0100, L101.9900 #### [facility] [address] [place], [address] Platelets (Bld) [#/Vol] 229 10*3/uL Normal 150-450 [facility] Comment on above: Performed By: #### L 501.6710, L100.0100, L101.9900 #### [facility] [address] [place], [address] RBC (Bld) [#/Vol] 4.08 10*6/uL Low 4.2-5.4 [facility] Comment on above: Performed By: #### L 501.6710, L100.0100, L101.9900 #### [facility] [address] [place], [address] RDW SD 46.1 fl High 35.1-43.9 [facility] Comment on above: Performed By: #### L 501.6710, L100.0100, L101.9900 #### [facility] [address] [place], [address] WBC (Bld) [#/Vol] 7.5 10*3/uL Normal 4.4-11.0 [facility] Comment on above: Performed By: #### L 501.6710, L100.0100, L101.9900 #### [facility] [address] [place], [address] CRPon 10-17-2024 C-REACTIVE PROT 13.10 mg/L High 0.0-3.0 [facility] Comment on above: Performed By: #### L 501.6710, L100.0100, L101.9900 ####[facility] [address] [place], [address] Eosinophil percentageOrdered By: Sheila Ray on 10-17-2024 Eosinophils/100 WBC (Bld) 1.3 % 0-5 [facility] Erythrocyte Sed Rateon 10-17 SED RATE 15 mm/hr Normal 0-30 [facility] Comment on above: Performed By: #### L 501.6710, L100.0100, L101.9900 #### [facility] [address] [place], [place], [address] Erythrocyte distribution wid th ratioOrdered By: Sheila Ray on 10-17-2024 Erythrocyte distribution width (RBC) [Ratio] 13.1 % 11.6-14.6 [facility] Erythrocyte distribution wid th standard deviationOrdered By: Sheila Ray on 10-17-2024 Erythrocyte distribution width (RBC) [Ratio] 46.1 fl High 35.1-43.9 [facility] Erythrocyte sedimentation ra teOrdered By: Sheila Ray on 10-17-2024 ESR (Bld) [Velocity] 15 mm/h 0-30 [facility] Gastroenterology Visit Repor ton 10-17-2024 Gastroenterology Visit Report [facility] [address] [place] [address] OFFICE VISIT Date of Service: 10/17/24 MR#: [id number] Acct: [id number] Name: NGOC KAUFFMAN Rep #: [id number] : 1980 Provider: LYNN Zarate Age/Sex: 44/F Location: [facility] Status: Signed Intake Vital Signs 10/14/24 17:43 [...] Reports prior hx of colonoscopy in 2021. [facility] Medical History (Updated 10/17/24 @ [...] to the office today for establishment with [facility]. [facility] ED 10.14.24 with abdominal pain and bloody [...] and Positive (more content not included)... Normal [facility] Hematocrit Auto (Bld) [Volum e fraction]Ordered By: Sheila Ray on 10-17-2024 Hematocrit (Bld) [Volume fraction] 39.0 % 37-47 [facility] Hemoglobin measurementOrdere d By: Sheila Ray on 10-17-2024 Hemoglobin (Bld) [Mass/Vol] 12.8 g/dL 12.0-15.0 [facility] Immature granulocytes/100 WB C Auto (Bld)Ordered By: Sheila Ray on 10-17-2024 Immature granulocytes/100 WBC (Bld) 0.300 % 0.0-0.9 [facility] Comment on above: IG% - Immature Granu locytes (promyelocytes, myelocytes and metamyelocytes) > 1% indicates that a LEFT SHIFT is Present. MCV (mean corpuscular volume ) determinationOrdered By: Sheila Ray on 10-17-2024 MCV (RBC) [Entitic vol] 95.6 fL 81-99 [facility] Mean corpuscular hemoglobin (MCH) determinationOrdered By: Sheila Ray on 10-17-2024 MCH (RBC) [Entitic mass] 31.4 pg 27.0-32.0 [facility] Mean corpuscular hemoglobin concentration (MCHC) determinationOrdered By: Sheila Ray on 10-17-2024 MCHC (RBC) [Mass/Vol] 32.8 g/dL 32-36 [facility] Mean platelet volume determi nationOrdered By: Sheila Ray on 10-17-2024 Platelet mean volume (Bld) [Entitic vol] 10.4 fL 6.2-12.0 [facility] Monocyte percentageOrdered B y: Sheila Ray on 10-17-2024 Monocytes/100 WBC (Bld) 7.3 % 0-10 [facility] Neutrophil percentageOrdered By: Sheila Ray on 10-17-2024 Neutrophils/100 WBC (Bld) 58.9 % 47-70 [facility] Nucleated red blood cell per centageOrdered By: Sheila Ray on 10-17-2024 Nucleated RBC/100 WBC (Bld) [Ratio] 0 % 0-5 [facility] Platelet countOrdered By: Gissell Ray on 10-17-2024 Platelets (Bld) [#/Vol] 229 10*3/uL 150-450 [facility] RBC Auto (Bld) [#/Vol]Ordere d By: Sheila Cory on 10-17-2024 RBC (Bld) [#/Vol] 4.08 10*6/uL Low 4.2-5.4 [facility] Serum or plasma C reactive p rotein measurement (mass/volume)Ordered By: Sheila Ray on 10-17-2024 CRP [Mass/Vol] 13.10 mg/L High 0.0-3.0 [facility] White blood cell (WBC) count Ordered By: Sheilachristin Ray on 10-17-2024 WBC (Bld) [#/Vol] 7.5 10*3/uL 4.4-11.0 [facility] Abdomen/Pelvis W IV Cont ONL Yon 10-14-2024 Abdomen/Pelvis W IV Cont ONLY [facility] [address] [place], [place] [id number] Abdomen/Pelvis W IV Cont ONLY MR#: [id number] Acct: [id number] Name: NGOC KAUFFMAN Rep #: [id number] : 1980 F 44 From: Larissa Avila nd, MD PCP: Dr. Coral Martinez MD Status: [facility] ER Study: Abdomen/Pelvis W IV Cont ONLY Date of Exam: Exam# [id number] Ordering Dr: Sam Combs DO PROCEDURE: ABDOMEN/PELVIS [...] abscess, ascites or free air. Reading Location: [id number] CC: Dr. Coral Martinez MD; Dr. Sam Combs DO [employer]: Signed Normal [facility] Absolute lymphocyte countOrd ered By: Sam Combs on 10-14-2024 Lymphocytes Auto (Unsp spec) [#/Vol] 0.99 10*3/uL 0.83-4.51 [facility] Absolute neutrophil countOrd ered By: Sam Combs on 10-14-2024 Neutrophils (Bld) [#/Vol] 10.9 10*3/uL High 2.0-7.7 [facility] Anion gap in Serum or Plasma Ordered By: Sam Combs on 10-14-2024 Anion gap [Moles/Vol] 11 mmol/L 5-15 [facility] Automated lymphocyte count a s percentage of total leukocytesOrdered By: Sam Combs on 10-14-2024 Lymphocytes/100 WBC Auto (Unsp spec) 7.8 % Low 19-41 [facility] BUN/creatinine ratioOrdered By: Sam Combs on 06-07-2025 Urea nitrogen/Creatinine [Mass ratio] 5.5 mg/mg Low 10-20 [facility] Basophil percentageOrdered B y: Sam Combs on 10-14-2024 Basophils/100 WBC (Bld) 0.3 % 0-1 [facility] Bilirubin Test strip Ql (U)O rdered By: Sam Combs on 10-14-2024 Bilirubin Ql (U) 1 mg/dL High Negative [facility] Comment on above: COLOR OF URINE MAY A FFECT DIPSTICK RESULTS. Bilirubin, totalOrdered By: Sam Combs on 10-14-2024 Bilirubin [Mass/Vol] 0.47 mg/dL 0.00-1.30 [facility] CBC W/Diff, Automatedon Absolute Lymph 0.99 X10 3/uL Normal 0.83-4.51 [facility] Comment on above: Performed By: #### L 500.4050, L501.2450, L100.0100 #### [facility] [address] [place], [place], [address] Absolute Neut 10.9 X10 3/uL High 2.0-7.7 [facility] Comment on above: Performed By: #### L 500.4050, L501.2450, L100.0100 #### [facility] [address] [place], [address] Basophils/100 WBC (Bld) 0.3 % Normal 0-1 [facility] Comment on above: Performed By: #### L 500.4050, L501.2450, L100.0100 #### [facility] [address] [place], [address] Eosinophils/100 WBC (Bld) 0.2 % Normal 0-5 [facility] Comment on above: Performed By: #### L 500.4050, L501.2450, L100.0100 #### [facility] [address] [place], [address] Erythrocyte distribution width (RBC) [Ratio] 13.2 % Normal 11.6-14.6 [facility] Comment on above: Performed By: #### L 500.4050, L501.2450, L100.0100 #### [facility] [address] [place], [address] Hematocrit (Bld) [Volume fraction] 42.6 % Normal 37-47 [facility] Comment on above: Performed By: #### L 500.4050, L501.2450, L100.0100 #### [facility] [address] [place], [address] Hemoglobin (Bld) [Mass/Vol] 14.2 g/dL Normal 12.0-15.0 [facility] Comment on above: Performed By: #### L 500.4050, L501.2450, L100.0100 #### [facility] [address] [place], [address] IG% 0.500 Normal 0.0-0.9 [facility] Comment on above: Result Comment: IG% - Immature Granulocytes (promyelocytes, myelocytes and metamyelocytes) > 1% indicates that a LEFT SHIFT is Present. Performed By: #### L 500.4050, L501.2450, L100.0100 #### [facility] [address] [place], [address] Lymphocytes/100 WBC (Bld) 7.8 % Low 19-41 [facility] Comment on above: Performed By: #### L 500.4050, L501.2450, L100.0100 #### [facility] [address] [place], [address] MCH (RBC) [Entitic mass] 31.5 pg Normal 27.0-32.0 [facility] Comment on above: Performed By: #### L 500.4050, L501.2450, L100.0100 #### [facility] [address] [place], [address] MCHC (RBC) [Mass/Vol] 33.3 g/dL Normal 32-36 [facility] Comment on above: Performed By: #### L 500.4050, L501.2450, L100.0100 #### [facility] [address] [place], [address] MCV (RBC) [Entitic vol] 94.5 fL Normal 81-99 [facility] Comment on above: Performed By: #### L 500.4050, L501.2450, L100.0100 #### [facility] [address] [place], [address] Monocytes/100 WBC (Bld) 6.3 % Normal 0-10 [facility] Comment on above: Performed By: #### L 500.4050, L501.2450, L100.0100 #### [facility] [address] [place], [address] Neutrophils/100 WBC (Bld) 84.9 % High 47-70 [facility] Comment on above: Performed By: #### L 500.4050, L501.2450, L100.0100 #### [facility] [address] [place], [address] Nucleated RBC (Bld) [#/Vol] 0 10*3/uL Normal 0-5 [facility] Comment on above: Performed By: #### L 500.4050, L501.2450, L100.0100 #### [facility] [address] [place], [address] Platelet mean volume (Bld) [Entitic vol] 10.1 fL Normal 6.2-12.0 [facility] Comment on above: Performed By: #### L 500.4050, L501.2450, L100.0100 #### [facility] [address] [place], [address] Platelets (Bld) [#/Vol] 246 10*3/uL Normal 150-450 [facility] Comment on above: Performed By: #### L 500.4050, L501.2450, L100.0100 #### [facility] [address] [place], [address] RBC (Bld) [#/Vol] 4.51 10*6/uL Normal 4.2-5.4 [facility] Comment on above: Performed By: #### L 500.4050, L501.2450, L100.0100 #### [facility] [address] [place], [address] RDW SD 45.7 fl High 35.1-43.9 [facility] Comment on above: Performed By: #### L 500.4050, L501.2450, L100.0100 #### [facility] [address] [place], [address] WBC (Bld) [#/Vol] 12.8 10*3/uL High 4.4-11.0 [facility] Comment on above: Performed By: #### L 500.4050, L501.2450, L100.0100 #### [facility] [address] [place], [address] CDIFF (PCR)on 10-14-2024 CDIFF Pending 027 027 NAP1-B1 Presumptive Negative *for epidemiolologic???use C. Diff PCR Negative- No toxigenic C. Diff Detected Normal [facility] Comment on above: Performed By: #### M 100.637, L400.0001, L400.7600, M100.6796 ####[facility] [address] [place], [address] Carbon dioxide, total [Moles /volume] in Central venous bloodOrdered By: Sam Combs on 10-14-2024 CO2 [Moles/Vol] 24.5 mmol/L 21.0-32.0 [facility] Chloride assayOrdered By: Billy Combs on 10-14-2024 Chloride [Moles/Vol] 104 mmol/L 98-108 [facility] Clostridium difficile detect ion by polymerase chain reactionOrdered By: Sam Combs on 10-14-2024 C. difficile DNA NATHAN+probe Ql (Unsp spec) [facility] Comprehensive Metabolic Prof ilon 10-14-2024 Albumin [Mass/Vol] 4.6 g/dL Normal 3.5-5.0 [facility] Comment on above: Performed By: #### L 500.4050, L501.2450, L100.0100 #### [facility] [address] [place], [address] Albumin/Globulin [Mass ratio] 1.5 {ratio} Normal 0.9-2.4 [facility] Comment on above: Performed By: #### L 500.4050, L501.2450, L100.0100 #### [facility] [address] [place], [address] ALK PHOS 64 U/L Normal 35-104 [facility] Comment on above: Performed By: #### L 500.4050, L501.2450, L100.0100 #### [facility] [address] [place], [address] ALT [Catalytic activity/Vol] 30 U/L Normal <=34 [facility] Comment on above: Performed By: #### L 500.4050, L501.2450, L100.0100 #### [facility] [address] [place], [address] AST [Catalytic activity/Vol] 24 U/L Normal <=31 [facility] Comment on above: Performed By: #### L 500.4050, L501.2450, L100.0100 #### [facility] [address] [place], [address] Bilirubin [Mass/Vol] 0.47 mg/dL Normal 0.00-1.30 [facility] Comment on above: Performed By: #### L 500.4050, L501.2450, L100.0100 #### [facility] [address] [place], [address] BUN/CRE 5.5 RATIO Low 10-20 [facility] Comment on above: Performed By: #### L 500.4050, L501.2450, L100.0100 #### [facility] [address] [place], [address] Calcium [Mass/Vol] 9.6 mg/dL Normal 7.6-11.0 [facility] Comment on above: Performed By: #### L 500.4050, L501.2450, L100.0100 #### [facility] [address] [place], [address] Chloride [Moles/Vol] 104 mmol/L Normal 98-108 [facility] Comment on above: Performed By: #### L 500.4050, L501.2450, L100.0100 #### [facility] [address] [place], [address] CO2 [Moles/Vol] 24.5 mmol/L Normal 21.0-32.0 [facility] Comment on above: Performed By: #### L 500.4050, L501.2450, L100.0100 #### [facility] [address] [place], [address] Creatinine [Mass/Vol] 0.82 mg/dL Normal 0.70-1.20 [facility] Comment on above: Performed By: #### L 500.4050, L501.2450, L100.0100 #### [facility] [address] [place], [address] ECRCL 93.68 ml/min Normal 50-250 [facility] Comment on above: Performed By: #### L 500.4050, L501.2450, L100.0100 #### [facility] [address] [place], [address] GAP 11 Normal 5-15 [facility] Comment on above: Performed By: #### L 500.4050, L501.2450, L100.0100 #### [facility] [address] [place], [address] GFR/1.73 sq M.predicted among non-blacks MDRD (S/P/Bld) [Vol rate/Area] 91 mL/min/{1.73_m2} Normal >60 [facility] Comment on above: Result Comment: mL/m in/1.73m2 CKD-EPI Creatinine Equation (2020) Performed By: #### L 500.4050, L501.2450, L100.0100 #### [facility] [address] [place], [address] Globulin (S) [Mass/Vol] 3.0 g/dL Normal 2.2-4.2 [facility] Comment on above: Performed By: #### L 500.4050, L501.2450, L100.0100 #### [facility] [address] [place], [address] Glucose [Mass/Vol] 97 mg/dL Normal 70-99 [facility] Comment on above: Performed By: #### L 500.4050, L501.2450, L100.0100 #### [facility] [address] [place], [address] Potassium [Moles/Vol] 3.6 mmol/L Normal 3.3-5.1 [facility] Comment on above: Performed By: #### L 500.4050, L501.2450, L100.0100 #### [facility] [address] [place], [address] Sodium [Moles/Vol] 139 mmol/L Normal 133-145 [facility] Comment on above: Performed By: #### L 500.4050, L501.2450, L100.0100 #### [facility] [address] [place], [address] T PROT 7.5 g/dL Normal 5.9-8.4 [facility] Comment on above: Performed By: #### L 500.4050, L501.2450, L100.0100 #### [facility] [address] [place], [address] Urea nitrogen [Mass/Vol] 5 mg/dL Normal 4-19 [facility] Comment on above: Performed By: #### L 500.4050, L501.2450, L100.0100 #### [facility] [address] [place], [address] ENTERIC PATHOGEN PANEL STOOL on 10-14-2024 EP [...] VIBRIO Not Detected Yersinia Not Detected Normal [facility] Comment on above: Performed By: #### M 100.637, L400.0001, L400.7600, M100.6796 ####[facility] [address] [place], [address] Emergency Department Summary on 10-14-2024 Emergency Department Summary [facility] Medical Records Department [address] [facility] [place] [address] Emergency Department Summary 10/14/24 MR#: [id number] Acct: [id number] Name: NGOC KAUFFMAN Rep #: [id number] : 1980 44 From: Sam Combs DO PCP: Dr. Coral Martinez MD Status:REG ER Location: ED HPI History of Present Illness Chief Complaint: GI Bleed PFSH [facility] Medical History Wears contact lenses [...] Room Air Room Air Room Air MDM [facility] Narrative Medical decision making narrative: HISTORY OF [...] imaging studie (more content not included)... Normal [facility] Eosinophil percentageOrdered By: Sam Combs on 10-14-2024 Eosinophils/100 WBC (Bld) 0.2 % 0-5 [facility] Erythrocyte distribution wid th ratioOrdered By: Sam Combs on 10-14-2024 Erythrocyte distribution width (RBC) [Ratio] 13.2 % 11.6-14.6 [facility] Erythrocyte distribution wid th standard deviationOrdered By: Sam Combs on 10-14-2024 Erythrocyte distribution width (RBC) [Ratio] 45.7 fl High 35.1-43.9 [facility] Glomerular filtration rate ( GFR) estimation/1.73 sq m using serum, plasma, or whole bOrdered By: Sam Combs on 10-14-2024 GFR/1.73 sq M.predicted among non-blacks MDRD (S/P/Bld) [Vol rate/Area] 91 mL/min/{1.73_m2} >60 [facility] Comment on above: mL/min/1.73m2 CKD-EP I Creatinine Equation (2020) Hematocrit Auto (Bld) [Volum e fraction]Ordered By: Sam Combs on 10-14-2024 Hematocrit (Bld) [Volume fraction] 42.6 % 37-47 [facility] Hemoglobin measurementOrdere d By: Sam Combs on 10-14-2024 Hemoglobin (Bld) [Mass/Vol] 14.2 g/dL 12.0-15.0 [facility] Immature granulocytes/100 WB C Auto (Bld)Ordered By: Sam Combs on 10-14-2024 Immature granulocytes/100 WBC (Bld) 0.500 % 0.0-0.9 [facility] Comment on above: IG% - Immature Granu locytes (promyelocytes, myelocytes and metamyelocytes) > 1% indicates that a LEFT SHIFT is Present. Ketones Test strip Ql (U)Ord ered By: Sam Combs on 10-14-2024 Ketones Ql (U) 5 mg/dl High Negative [facility] - Chemistry and C hemistry - challengeOrdered By: Sam Combs on 10-14-2024 AST [Catalytic activity/Vol] 24 U/L <32 [facility] Lipaseon 10-14-2024 Lipase [Catalytic activity/Vol] 27 U/L Normal 13-75 [facility] Comment on above: Result Comment: Manas ro note: LIPASE revised reference range effective 22. New Lipase methodology. Expected to produce lower values than the previous assay method. NEW Reference Range: 13 - 75 U/L Performed By: #### L 500.4050, L501.2450, L100.0100 #### [facility] [address] [place], [address] Lipase measurementOrdered By : Sam Combs on 10-14-2024 Lipase [Catalytic activity/Vol] 27 U/L 13-75 [facility] Comment on above: Please note:LIPASE r evised reference range effective 22. New Lipase methodology. Expected to produce lower values than the previous assay method. NEW Reference Range: 13 - 75 U/L MCV (mean corpuscular volume ) determinationOrdered By: Sam Combs on 10-14-2024 MCV (RBC) [Entitic vol] 94.5 fL 81-99 [facility] Mean corpuscular hemoglobin (MCH) determinationOrdered By: Sam Combs on 10-14-2024 MCH (RBC) [Entitic mass] 31.5 pg 27.0-32.0 [facility] Mean corpuscular hemoglobin concentration (MCHC) determinationOrdered By: Sam Combs on 10-14-2024 MCHC (RBC) [Mass/Vol] 33.3 g/dL 32-36 [facility] Mean platelet volume determi nationOrdered By: Sam Combs on 10-14-2024 Platelet mean volume (Bld) [Entitic vol] 10.1 fL 6.2-12.0 [facility] Microscopic analysis of urin e for red blood cells (RBC)Ordered By: Sam Combs on 10-14-2024 Microscopic analysis of urine for red blood cells (RBC) 0 SEEN /hpf 0-5 [facility] Monocyte percentageOrdered B y: Sam Combs on 10-14-2024 Monocytes/100 WBC (Bld) 6.3 % 0-10 [facility] Mucus LM Ql (Urine sed)Order ed By: Sam Combs on 10-14-2024 Mucus Ql (Urine sed) 0 SEEN /hpf [facility] Neutrophil percentageOrdered By: Sam Combs on 10-14-2024 Neutrophils/100 WBC (Bld) 84.9 % High 47-70 [facility] Nitrite Test strip Ql (U)Ord ered By: Sam Combs on 10-14-2024 Nitrite Ql (U) Negative Negative [facility] Nucleated red blood cell per centageOrdered By: Sam Combs on 10-14-2024 Nucleated RBC/100 WBC (Bld) [Ratio] 0 % 0-5 [facility] Platelet countOrdered By: Billy Combs on 10-14-2024 Platelets (Bld) [#/Vol] 246 10*3/uL 150-450 [facility] Potassium measurement (mass/ volume)Ordered By: Sam Combs on 10-14-2024 Potassium (Unsp spec) [Mass/Vol] 3.6 mmol/L 3.3-5.1 [facility] ,Urineon 10-14-2024 Beta HCG ( test) Ql (U) Negative Normal [facility] Comment on above: Order Comment: COLOR OF URINE MAY AFFECT DIPSTICK RESULTS. Result Comment: Very dilute urine specimens, as indicated by a low specific gravity, may not contain warehouse representative levels of hCG. If is still suspected, a first morning urine specimen should be collected 48 hours later and tested. Performed By: #### M 100.637, L400.0001, L400.7600, M100.6796 ####[facility] [address] [place], [address] Protein Test strip Ql (U)Ord ered By: Sam Combs on 10-14-2024 Protein Ql (U) 30 mg/dl High Negative [facility] RBC Auto (Bld) [#/Vol]Ordere d By: Sam Combs on 10-14-2024 RBC (Bld) [#/Vol] 4.51 10*6/uL 4.2-5.4 [facility] Serum creatinine measurement (mass/volume)Ordered By: Sam Combs on 10-14-2024 Creatinine [Mass/Vol] 0.82 mg/dL 0.70-1.20 [facility] Serum globulin measurementOr dered By: Sam Combs on 10-14-2024 Globulin (S) [Mass/Vol] 3.0 g/dL 2.2-4.2 [facility] Serum glucose measurement (m ass/volume)Ordered By: Sam Combs on 10-14-2024 Glucose [Mass/Vol] 97 mg/dL 70-99 [facility] Serum or plasma alanine jordan otransferase (ALT) measurementOrdered By: Sam Combs on 10-14-2024 ALT [Catalytic activity/Vol] 30 U/L <35 [facility] Serum or plasma albumin chey urement (mass/volume)Ordered By: Sam Combs on 10-14-2024 Albumin [Mass/Vol] 4.6 g/dL 3.5-5.0 [facility] Serum or plasma albumin/glob ulin mass ratioOrdered By: Sam Combs on 10-14-2024 Albumin/Globulin [Mass ratio] 1.5 {ratio} 0.9-2.4 [facility] Serum or plasma alkaline yony sphatase measurementOrdered By: Sam Combs on 10-14-2024 ALP [Catalytic activity/Vol] 64 U/L 35-104 [facility] Serum or plasma calcium chey urement (mass/volume)Ordered By: Sam Combs on 10-14-2024 Calcium [Mass/Vol] 9.6 mg/dL 7.6-11.0 [facility] Serum or plasma urea nitroge n measurement (mass/volume)Ordered By: Sam Combs on 10-14-2024 Urea nitrogen [Mass/Vol] 5 mg/dL 4-19 [facility] Sodium levelOrdered By: David Combs on 10-14-2024 Sodium [Moles/Vol] 139 mmol/L 133-145 [facility] Squamous epithelial cells de tection in urine sediment by light microscopyOrdered By: Samedgardo Combs on 10-14-2024 Epithelial cells.squamous LM Ql (Urine sed) 0-5 SEEN /hpf 5-10 [facility] Total proteinOrdered By: Luci francois Combs on 10-14-2024 Protein [Mass/Vol] 7.5 g/dL 5.9-8.4 [facility] Transitional cells detection in urine sediment by light microscopyOrdered By: Sam Lauryn on 10-14-2024 Transitional cells LM Ql (Urine sed) 0-5 SEEN /hpf 0-5 [facility] Urinalysis, Completeon 10-14 BACTERIA 4+ /hpf Normal None Seen [facility] Comment on above: Order Comment: COLOR OF URINE MAY AFFECT DIPSTICK RESULTS.CLEAN CATCH Performed By: #### M 100.637, L400.0001, L400.7600, M100.6796 ####[facility] [address] [place], [address] CAST,FINE GRAN 0-5 SEEN Normal 0-5 [facility] Comment on above: Order Comment: COLOR OF URINE MAY AFFECT DIPSTICK RESULTS.CLEAN CATCH Performed By: #### M 100.637, L400.0001, L400.7600, M100.6796 ####[facility] [address] [place], [address] EPI,SQUAMOUS 0-5 SEEN Normal 5-10 [facility] Comment on above: Order Comment: COLOR OF URINE MAY AFFECT DIPSTICK RESULTS.CLEAN CATCH Performed By: #### M 100.637, L400.0001, L400.7600, M100.6796 ####[facility] [address] [place], [address] EPI,TRANSITION 0-5 SEEN Normal 0-5 [facility] Comment on above: Order Comment: COLOR OF URINE MAY AFFECT DIPSTICK RESULTS.CLEAN CATCH Performed By: #### M 100.637, L400.0001, L400.7600, M100.6796 ####[facility] [address] [place], [address] WBC 0-5 SEEN Normal 0-5 [facility] Comment on above: Order Comment: COLOR OF URINE MAY AFFECT DIPSTICK RESULTS.CLEAN CATCH Performed By: #### M 100.637, L400.0001, L400.7600, M100.6796 ####[facility] [address] [place], [address] Mucus Ql (Urine sed) 0 SEEN Normal [facility] Comment on above: Order Comment: COLOR OF URINE MAY AFFECT DIPSTICK RESULTS.CLEAN CATCH Performed By: #### M 100.637, L400.0001, L400.7600, M100.6796 ####[facility] [address] [place], [address] RBC 0 SEEN Normal 0-5 [facility] Comment on above: Order Comment: COLOR OF URINE MAY AFFECT DIPSTICK RESULTS.CLEAN CATCH Performed By: #### M 100.637, L400.0001, L400.7600, M100.6796 ####[facility] [address] [place], [address] Urine clarityOrdered By: Tana Combs on 10-14-2024 Clarity (U) Cloudy Clear [facility] Urine color determinationOrd ered By: Sam Combs on 10-14-2024 Color (U) Genny Yellow [facility] Urine glucose detectionOrder ed By: Sam Combs on 10-14-2024 Glucose Ql (U) Normal mg/dl Normal [facility] Urine leukocyte esterase det ection by dipstickOrdered By: Sma Combs on 10-14-2024 Leukocyte esterase Test strip Ql (U) 25 /ul High Negative [facility] Urine pHOrdered By: Sam valentine on 10-14-2024 pH (U) 5.0 [pH] 5.0 - 8.0 [facility] Urine testOrdered By: Sam Combs on 10-14-2024 HCG ( test) Ql (U) Negative [facility] Comment on above: Very dilute urine sp ecimens, as indicated by a low specificgravity, may not contain warehouse representative levels of hCG. If is still suspected, a first morning urinespecimen should be collected 48 hours later and tested. Urine sediment bacteria coun t by microscopy (number/high power field)Ordered By: Sam Combs on 10-14-2024 Bacteria LM.HPF (Urine sed) [#/Area] 4 /[HPF] None Seen [facility] Urine sediment fine granular cast count by microscopy (number/low power field)Ordered By: Sam Combs on 10-14-2024 Fine Granular Casts LM.LPF (Urine sed) [#/Area] 0-5 SEEN /lpf 0-5 [facility] Urine specific gravity measu rementOrdered By: Sam Combs on 10-14-2024 Specific gravity (U) [Rel density] 1.030 1.002-1.030 [facility] Urine urobilinogen measureme ntOrdered By: Sam Combs on 10-14-2024 Urobilinogen Ql (U) Normal mg/dl Normal [facility] White blood cell (WBC) count Ordered By: Sam Combs on 10-14-2024 WBC (Bld) [#/Vol] 12.8 10*3/uL High 4.4-11.0 [facility] White blood cell countOrdere d By: Sam Combs on 10-14-2024 White blood cell count 0-5 SEEN /hpf 0-5 [facility] Abdomen Limitedon 09-26-2024 Abdomen Limited [facility] [address] [place], [place] [id number] Abdomen Limited MR#: [id number] Acct: [id number] Name: NGOC KAUFFMAN Rep #: [id number] : 1980 F 44 From: Skip branch MD PCP: Dr. Coral Martinez MD Status: REG CLI Study: Abdomen Limited Date of Exam: 09/26/24 Exam# [id number] Ordering Dr: Clarice Liriano MD PROCEDURE: ABDOMEN [...] right lobe of the liver. Reading Location: [place] [address] CC: Dr. Coral Martinez MD; Dr. Clarice Liriano MD [employer] Engineer: Signed Normal [facility] Absolute lymphocyte countOrd ered By: Clarice Liriano on 09-13-2024 Lymphocytes Auto (Unsp spec) [#/Vol] 2.20 10*3/uL 0.83-4.51 [facility] Absolute neutrophil countOrd ered By: Clarice Liriano on 09-13-2024 Neutrophils (Bld) [#/Vol] 3.9 10*3/uL 2.0-7.7 [facility] Anion gap in Serum or Plasma Ordered By: Clarice Liriano on 09-13-2024 Anion gap [Moles/Vol] 12 mmol/L 5-15 [facility] Automated lymphocyte count a s percentage of total leukocytesOrdered By: Clarice Liriano on 09-13-2024 Lymphocytes/100 WBC Auto (Unsp spec) 31.9 % 19-41 [facility] BUN/creatinine ratioOrdered By: Clarice Liriano on 09-13-2024 Urea nitrogen/Creatinine [Mass ratio] 7.7 mg/mg Low 10-20 [facility] Basophil percentageOrdered B y: Clarice Liriano on 09-13-2024 Basophils/100 WBC (Bld) 0.6 % 0-1 [facility] Bilirubin, totalOrdered By: Clarice Liriano on 09-13-2024 Bilirubin [Mass/Vol] 0.31 mg/dL 0.00-1.30 [facility] CBC W/Diff, Automatedon 05-0 Absolute Lymph 2.20 X10 3/uL Normal 0.83-4.51 [facility] Comment on above: Performed By: #### L 100.0100, L500.4050 ####[facility] [address] [place], [address] Absolute Neut 3.9 X10 3/uL Normal 2.0-7.7 [facility] Comment on above: Performed By: #### L 100.0100, L500.4050 ####[facility] [address] [place], [address] Basophils/100 WBC (Bld) 0.6 % Normal 0-1 [facility] Comment on above: Performed By: #### L 100.0100, L500.4050 ####[facility] [address] [place], [address] Eosinophils/100 WBC (Bld) 1.2 % Normal 0-5 [facility] Comment on above: Performed By: #### L 100.0100, L500.4050 ####[facility] [address] [place], [address] Erythrocyte distribution width (RBC) [Ratio] 13.1 % Normal 11.6-14.6 [facility] Comment on above: Performed By: #### L 100.0100, L500.4050 ####[facility] [address] [place], [address] Hematocrit (Bld) [Volume fraction] 41.5 % Normal 37-47 [facility] Comment on above: Performed By: #### L 100.0100, L500.4050 ####[facility] [address] [place], [address] Hemoglobin (Bld) [Mass/Vol] 13.8 g/dL Normal 12.0-15.0 [facility] Comment on above: Performed By: #### L 100.0100, L500.4050 ####[facility] [address] [place], [address] IG% 0.100 Normal 0.0-0.9 [facility] Comment on above: Result Comment: IG% - Immature Granulocytes (promyelocytes, myelocytes and metamyelocytes) > 1% indicates that a LEFT SHIFT is Present. Performed By: #### L 100.0100, L500.4050 ####[facility] [address] [place], [address] Lymphocytes/100 WBC (Bld) 31.9 % Normal 19-41 [facility] Comment on above: Performed By: #### L 100.0100, L500.4050 ####[facility] [address] [place], [address] MCH (RBC) [Entitic mass] 31.4 pg Normal 27.0-32.0 [facility] Comment on above: Performed By: #### L 100.0100, L500.4050 ####[facility] [address] [place], [address] MCHC (RBC) [Mass/Vol] 33.3 g/dL Normal 32-36 [facility] Comment on above: Performed By: #### L 100.0100, L500.4050 ####[facility] [address] [place], [address] MCV (RBC) [Entitic vol] 94.5 fL Normal 81-99 [facility] Comment on above: Performed By: #### L 100.0100, L500.4050 ####[facility] [address] [place], [address] Monocytes/100 WBC (Bld) 10.0 % Normal 0-10 [facility] Comment on above: Performed By: #### L 100.0100, L500.4050 ####[facility] [address] [place], [address] Neutrophils/100 WBC (Bld) 56.2 % Normal 47-70 [facility] Comment on above: Performed By: #### L 100.0100, L500.4050 ####[facility] [address] [place], [address] Nucleated RBC (Bld) [#/Vol] 0 10*3/uL Normal 0-5 [facility] Comment on above: Performed By: #### L 100.0100, L500.4050 ####[facility] [address] [place], [address] Platelet mean volume (Bld) [Entitic vol] 10.6 fL Normal 6.2-12.0 [facility] Comment on above: Performed By: #### L 100.0100, L500.4050 ####[facility] [address] [place], [address] Platelets (Bld) [#/Vol] 243 10*3/uL Normal 150-450 [facility] Comment on above: Performed By: #### L 100.0100, L500.4050 ####[facility] [address] [place], [address] RBC (Bld) [#/Vol] 4.39 10*6/uL Normal 4.2-5.4 [facility] Comment on above: Performed By: #### L 100.0100, L500.4050 ####[facility] [address] [place], [address] RDW SD 45.3 fl High 35.1-43.9 [facility] Comment on above: Performed By: #### L 100.0100, L500.4050 ####[facility] [address] [place], [address] WBC (Bld) [#/Vol] 6.9 10*3/uL Normal 4.4-11.0 [facility] Comment on above: Performed By: #### L 100.0100, L500.4050 ####[facility] [address] [place], [address] Carbon dioxide, total [Moles /volume] in Central venous bloodOrdered By: Clarice Liriano on 09-13-2024 CO2 [Moles/Vol] 22.0 mmol/L 21.0-32.0 [facility] Chloride assayOrdered By: Lynn Liriano on 09-13-2024 Chloride [Moles/Vol] 102 mmol/L 98-108 [facility] Comprehensive Metabolic Prof ilon 09-13-2024 Albumin [Mass/Vol] 4.3 g/dL Normal 3.5-5.0 [facility] Comment on above: Performed By: #### L 7000.0700 #### [facility] [address] [place], [address] Albumin/Globulin [Mass ratio] 1.4 {ratio} Normal 0.9-2.4 [facility] Comment on above: Performed By: #### L 7000.0700 #### [facility] [address] [place], [address] ALK PHOS 58 U/L Normal 35-104 [facility] Comment on above: Performed By: #### L 7000.0700 #### [facility] [address] [place], [address] ALT [Catalytic activity/Vol] 38 U/L High <=34 [facility] Comment on above: Performed By: #### L 7000.0700 #### [facility] [address] [place], [address] AST [Catalytic activity/Vol] 23 U/L Normal <=31 [facility] Comment on above: Performed By: #### L 7000.0700 #### [facility] [address] [place], [address] Bilirubin [Mass/Vol] 0.31 mg/dL Normal 0.00-1.30 [facility] Comment on above: Performed By: #### L 7000.0700 #### [facility] [address] [place], [address] BUN/CRE 7.7 RATIO Low 10-20 [facility] Comment on above: Performed By: #### L 7000.0700 #### [facility] [address] [place], [address] Calcium [Mass/Vol] 9.6 mg/dL Normal 7.6-11.0 [facility] Comment on above: Performed By: #### L 7000.0700 #### [facility] [address] [place], [address] Chloride [Moles/Vol] 102 mmol/L Normal 98-108 [facility] Comment on above: Performed By: #### L 7000.0700 #### [facility] [address] [place], [address] CO2 [Moles/Vol] 22.0 mmol/L Normal 21.0-32.0 [facility] Comment on above: Performed By: #### L 7000.0700 #### [facility] [address] [place], [address] Creatinine [Mass/Vol] 0.82 mg/dL Normal 0.70-1.20 [facility] Comment on above: Performed By: #### L 7000.0700 #### [facility] [address] [place], [address] GAP 12 Normal 5-15 [facility] Comment on above: Performed By: #### L 7000.0700 #### [facility] [address] [place], [address] GFR/1.73 sq M.predicted among non-blacks MDRD (S/P/Bld) [Vol rate/Area] 90 mL/min/{1.73_m2} Normal >60 [facility] Comment on above: Result Comment: mL/m in/1.73m2 CKD-EPI Creatinine Equation (2020) Performed By: #### L 7000.0700 #### [facility] [address] [place], [address] Globulin (S) [Mass/Vol] 3.0 g/dL Normal 2.2-4.2 [facility] Comment on above: Performed By: #### L 7000.0700 #### [facility] [address] [place], [address] Glucose [Mass/Vol] 103 mg/dL High 70-99 [facility] Comment on above: Performed By: #### L 7000.0700 #### [facility] [address] [place], [address] Potassium [Moles/Vol] 4.0 mmol/L Normal 3.3-5.1 [facility] Comment on above: Performed By: #### L 7000.0700 #### [facility] [address] [place], [address] Sodium [Moles/Vol] 136 mmol/L Normal 133-145 [facility] Comment on above: Performed By: #### L 7000.0700 #### [facility] [address] [place], [address] T PROT 7.3 g/dL Normal 5.9-8.4 [facility] Comment on above: Performed By: #### L 7000.0700 #### [facility] [address] [place], [address] Urea nitrogen [Mass/Vol] 6 mg/dL Normal 4-19 [facility] Comment on above: Performed By: #### L 7000.0700 #### [facility] [address] [place], [address] Eosinophil percentageOrdered By: Clarice Liriano on 09-13-2024 Eosinophils/100 WBC (Bld) 1.2 % 0-5 [facility] Erythrocyte distribution wid th ratioOrdered By: Clarice Liriano on 09-13-2024 Erythrocyte distribution width (RBC) [Ratio] 13.1 % 11.6-14.6 [facility] Erythrocyte distribution wid th standard deviationOrdered By: Clarice Liriano on 09-13-2024 Erythrocyte distribution width (RBC) [Ratio] 45.3 fl High 35.1-43.9 [facility] Glomerular filtration rate ( GFR) estimation/1.73 sq m using serum, plasma, or whole bOrdered By: Clarice Liriano on 09-13-2024 GFR/1.73 sq M.predicted among non-blacks MDRD (S/P/Bld) [Vol rate/Area] 90 mL/min/{1.73_m2} >60 [facility] Comment on above: mL/min/1.73m2 CKD-EP I Creatinine Equation (2020) Hematocrit Auto (Bld) [Volum e fraction]Ordered By: Clarice Liriano on 09-13-2024 Hematocrit (Bld) [Volume fraction] 41.5 % 37-47 [facility] Hemoglobin measurementOrdere d By: Clarice Liriano on 09-13-2024 Hemoglobin (Bld) [Mass/Vol] 13.8 g/dL 12.0-15.0 [facility] Immature granulocytes/100 WB C Auto (Bld)Ordered By: Clarice Liriano on 09-13-2024 Immature granulocytes/100 WBC (Bld) 0.100 % 0.0-0.9 [facility] Comment on above: IG% - Immature Granu locytes (promyelocytes, myelocytes and metamyelocytes) > 1% indicates that a LEFT SHIFT is Present. Laboratory - Chemistry and C hemistry - challengeOrdered By: Clarice Liriano on 09-13-2024 AST [Catalytic activity/Vol] 23 U/L <32 [facility] MCV (mean corpuscular volume ) determinationOrdered By: Clarice Liriano on 09-13-2024 MCV (RBC) [Entitic vol] 94.5 fL 81-99 [facility] Mean corpuscular hemoglobin (MCH) determinationOrdered By: Clarice Liriano on 09-13-2024 MCH (RBC) [Entitic mass] 31.4 pg 27.0-32.0 [facility] Mean corpuscular hemoglobin concentration (MCHC) determinationOrdered By: Clarice Liriano on 09-13-2024 MCHC (RBC) [Mass/Vol] 33.3 g/dL 32-36 [facility] Mean platelet volume determi nationOrdered By: Clarice Liriano on 09-13-2024 Platelet mean volume (Bld) [Entitic vol] 10.6 fL 6.2-12.0 [facility] Monocyte percentageOrdered B y: Clarice Liriano on 09-13-2024 Monocytes/100 WBC (Bld) 10.0 % 0-10 [facility] Neutrophil percentageOrdered By: Clarice Liriano on 09-13-2024 Neutrophils/100 WBC (Bld) 56.2 % 47-70 [facility] Nucleated red blood cell per centageOrdered By: Clarice Liriano on 09-13-2024 Nucleated RBC/100 WBC (Bld) [Ratio] 0 % 0-5 [facility] Platelet countOrdered By: Lynn Liriano on 09-13-2024 Platelets (Bld) [#/Vol] 243 10*3/uL 150-450 [facility] Potassium measurement (mass/ volume)Ordered By: Clarice Liriano on 09-13-2024 Potassium (Unsp spec) [Mass/Vol] 4.0 mmol/L 3.3-5.1 [facility] RBC Auto (Bld) [#/Vol]Ordere d By: Clarice Liriano on 09-13-2024 RBC (Bld) [#/Vol] 4.39 10*6/uL 4.2-5.4 [facility] Serum creatinine measurement (mass/volume)Ordered By: Clarice Liriano on 09-13-2024 Creatinine [Mass/Vol] 0.82 mg/dL 0.70-1.20 [facility] Serum globulin measurementOr dered By: Clarice Liriano on 09-13-2024 Globulin (S) [Mass/Vol] 3.0 g/dL 2.2-4.2 [facility] Serum glucose measurement (m ass/volume)Ordered By: Clarice Liriano on 09-13-2024 Glucose [Mass/Vol] 103 mg/dL High 70-99 [facility] Serum or plasma alanine jordan otransferase (ALT) measurementOrdered By: Clarice Liriano on 09-13-2024 ALT [Catalytic activity/Vol] 38 U/L High <35 [facility] Serum or plasma albumin chey urement (mass/volume)Ordered By: Clarice Liriano on 09-13-2024 Albumin [Mass/Vol] 4.3 g/dL 3.5-5.0 [facility] Serum or plasma albumin/glob ulin mass ratioOrdered By: Clarice Liriano on 09-13-2024 Albumin/Globulin [Mass ratio] 1.4 {ratio} 0.9-2.4 [facility] Serum or plasma alkaline yony sphatase measurementOrdered By: Clarice Liriano on 09-13-2024 ALP [Catalytic activity/Vol] 58 U/L 35-104 [facility] Serum or plasma calcium chey urement (mass/volume)Ordered By: Clarice Liriano on 09-13-2024 Calcium [Mass/Vol] 9.6 mg/dL 7.6-11.0 [facility] Serum or plasma urea nitroge n measurement (mass/volume)Ordered By: Clarice Liriano on 09-13-2024 Urea nitrogen [Mass/Vol] 6 mg/dL 4-19 [facility] Sodium levelOrdered By: Elana Liriano on 09-13-2024 Sodium [Moles/Vol] 136 mmol/L 133-145 [facility] Total proteinOrdered By: Jersey Liriano on 09-13-2024 Protein [Mass/Vol] 7.3 g/dL 5.9-8.4 [facility] White blood cell (WBC) count Ordered By: Clarice Liriano on 09-13-2024 WBC (Bld) [#/Vol] 6.9 10*3/uL 4.4-11.0 [facility] Absolute lymphocyte countOrd ered By: Coral Juan on 07-22-2024 Lymphocytes Auto (Unsp spec) [#/Vol] 1.80 10*3/uL 0.83-4.51 [facility] Absolute neutrophil countOrd ered By: Coral Juan on 07-22-2024 Neutrophils (Bld) [#/Vol] 3.8 10*3/uL 2.0-7.7 [facility] Anion gap in Serum or Plasma Ordered By: Coral Martinez on 07-22-2024 Anion gap [Moles/Vol] 10 mmol/L 09-21 [facility] Automated lymphocyte count a s percentage of total leukocytesOrdered By: Coral Martinez on 07-22-2024 Lymphocytes/100 WBC Auto (Unsp spec) 28.3 % 19-41 [facility] BUN/creatinine ratioOrdered By: Coral Martinez on 07-22-2024 Urea nitrogen/Creatinine [Mass ratio] 10.6 mg/mg 10-20 [facility] Basophil percentageOrdered B y: Moeedgardo Juan on 07-22-2024 Basophils/100 WBC (Bld) 0.9 % 0-1 [facility] Bilirubin, totalOrdered By: Moeedgardo Martinez on 07-22-2024 Bilirubin [Mass/Vol] 0.21 mg/dL 0.00-1.30 [facility] CBC W/Diff, Automatedon 07-08 Absolute Lymph 1.80 X10 3/uL Normal 0.83-4.51 [facility] Comment on above: Order Comment: Order Date: 07/11/24Order Info: [id number] - CBCD Performed By: #### L 7000.0700 #### [facility] [employer] [place], [address] Absolute Neut 3.8 X10 3/uL Normal 2.0-7.7 [facility] Comment on above: Order Comment: Order Date: 07/11/24Order Info: [id number] - CBCD Performed By: #### L 7000.0700 #### [facility] [address] [place], [address] Basophils/100 WBC (Bld) 0.9 % Normal 0-1 [facility] Comment on above: Order Comment: Order Date: 07/11/24Order Info: [id number] - CBCD Performed By: #### L 7000.0700 #### [facility] [address] [place], [address] Eosinophils/100 WBC (Bld) 1.7 % Normal 0-5 [facility] Comment on above: Order Comment: Order Date: 07/11/24Order Info: [id number] - CBCD Performed By: #### L 7000.0700 #### [facility] [address] [place], [address] Erythrocyte distribution width (RBC) [Ratio] 13.7 % Normal 11.6-14.6 [facility] Comment on above: Order Comment: Order Date: 07/11/24Order Info: [id number] - CBCD Performed By: #### L 7000.0700 #### [facility] [address] [place], [address] Hematocrit (Bld) [Volume fraction] 38.7 % Normal 37-47 [facility] Comment on above: Order Comment: Order Date: 07/11/24Order Info: [id number] - CBCD Performed By: #### L 7000.0700 #### [facility] [address] [place], [address] Hemoglobin (Bld) [Mass/Vol] 12.7 g/dL Normal 12.0-15.0 [facility] Comment on above: Order Comment: Order Date: 07/11/24Order Info: [id number] - CBCD Performed By: #### L 7000.0700 #### [facility] [address] [place], [address] IG% 0.300 Normal 0.0-0.9 [facility] Comment on above: Order Comment: Order Date: 07/11/24Order Info: [id number] - CBCD Result Comment: IG% - Immature Granulocytes (promyelocytes, myelocytes and metamyelocytes) > 1% indicates that a LEFT SHIFT is Present. Performed By: #### L 7000.0700 #### [facility] [address] [place], [address] Lymphocytes/100 WBC (Bld) 28.3 % Normal 19-41 [facility] Comment on above: Order Comment: Order Date: 07/11/24Order Info: [id number]- - CBCD Performed By: #### L 7000.0700 #### [facility] [address] [place], [address] MCH (RBC) [Entitic mass] 32.2 pg High 27.0-32.0 [facility] Comment on above: Order Comment: Order Date: 07/11/24Order Info: [id number] - CBCD Performed By: #### L 7000.0700 #### [facility] [address] [place], [address] MCHC (RBC) [Mass/Vol] 32.8 g/dL Normal 32-36 [facility] Comment on above: Order Comment: Order Date: 07/11/24Order Info: [id number] - CBCD Performed By: #### L 7000.0700 #### [facility] [address] [place], [address] MCV (RBC) [Entitic vol] 98.2 fL Normal 81-99 [facility] Comment on above: Order Comment: Order Date: 07/11/24Order Info: [id number] - CBCD Performed By: #### L 7000.0700 #### [facility] [address] [place], [address] Monocytes/100 WBC (Bld) 9.1 % Normal 0-10 [facility] Comment on above: Order Comment: Order Date: 07/11/24Order Info: [id number] - CBCD Performed By: #### L 7000.0700 #### [facility] [address] [place], [address] Neutrophils/100 WBC (Bld) 59.7 % Normal 47-70 [facility] Comment on above: Order Comment: Order Date: 07/11/24Order Info: [id number] - CBCD Performed By: #### L 7000.0700 #### [facility] [address] [place], [address] Nucleated RBC (Bld) [#/Vol] 0 10*3/uL Normal 0-5 [facility] Comment on above: Order Comment: Order Date: 07/11/24Order Info: [id number] - CBCD Performed By: #### L 7000.0700 #### [facility] [address] [place], [address] Platelet mean volume (Bld) [Entitic vol] 9.6 fL Normal 6.2-12.0 [facility] Comment on above: Order Comment: Order Date: 07/11/24Order Info: [id number] - CBCD Performed By: #### L 7000.0700 #### [facility] [address] [place], [address] Platelets (Bld) [#/Vol] 240 10*3/uL Normal 150-450 [facility] Comment on above: Order Comment: Order Date: 07/11/24Order Info: [id number] - CBCD Performed By: #### L 7000.0700 #### [facility] [address] [place], [address] RBC (Bld) [#/Vol] 3.94 10*6/uL Low 4.2-5.4 [facility] Comment on above: Order Comment: Order Date: 07/11/24Order Info: [id number] - CBCD Performed By: #### L 7000.0700 #### [facility] [address] [place], [address] RDW SD 49.8 fl High 35.1-43.9 [facility] Comment on above: Order Comment: Order Date: 07/11/24Order Info: [id number]- - CBCD Performed By: #### L 7000.0700 #### [facility] [address] [place], [address] WBC (Bld) [#/Vol] 6.4 10*3/uL Normal 4.4-11.0 [facility] Comment on above: Order Comment: Order Date: 07/11/24Order Info: [id number]- - CBCD Performed By: #### L 7000.0700 #### [facility] [address] [place], [address] Calculated very low density lipoprotein (VLDL) cholesterol measurementOrdered By: Coral Martinez on 07-22-2024 Calculated very low density lipoprotein (VLDL) cholesterol measurement 17 mg/dL 5-40 [facility] VLDL Cholesterol 17 mg/dL 5-40 [facility] Carbon dioxide, total [Moles /volume] in Central venous bloodOrdered By: Coral Martinez on 07-22-2024 CO2 [Moles/Vol] 24.0 mmol/L 21.0-32.0 [facility] Chloride assayOrdered By: Es Martinez on 07-22-2024 Chloride [Moles/Vol] 103 mmol/L 98-108 [facility] Comprehensive Metabolic Prof ilon 07-22-2024 Albumin [Mass/Vol] 4.1 g/dL Normal 3.5-5.0 [facility] Comment on above: Order Comment: Order Date: 07/11/24Order Info: [id number] - CMPOrder Info: [id number] - LIPIDOrder Info: [id number] - TSH Performed By: #### L 7000.0700 #### [facility] [address] [place], [address] Albumin/Globulin [Mass ratio] 1.4 {ratio} Normal 0.9-2.4 [facility] Comment on above: Order Comment: Order Date: 07/11/24Order Info: 86-1 - CMPOrder Info: [id number] - LIPIDOrder Info: [id number] - TSH Performed By: #### L 7000.0700 #### [facility] [address] [place], [address] ALK PHOS 70 U/L Normal 35-104 [facility] Comment on above: Order Comment: Order Date: 07/11/24Order Info: 86-1 - CMPOrder Info: [id number] - LIPIDOrder Info: [id number] - TSH Performed By: #### L 7000.0700 #### [facility] [address] [place], [address] ALT [Catalytic activity/Vol] 35 U/L Normal <=34 [facility] Comment on above: Order Comment: Order Date: 07/11/24Order Info: [id number] - CMPOrder Info: [id number] - LIPIDOrder Info: [id number] - TSH Performed By: #### L 0.0700 #### [facility] [address] [place], [address] AST [Catalytic activity/Vol] 32 U/L Normal <=31 [facility] Comment on above: Order Comment: Order Date: 07/11/24Order Info: 86-1 - CMPOrder Info: [id number] - LIPIDOrder Info: [id number] - TSH Performed By: #### L 7000.0700 #### [facility] [address] [place], [address] Bilirubin [Mass/Vol] 0.21 mg/dL Normal 0.00-1.30 [facility] Comment on above: Order Comment: Order Date: 07/11/24Order Info: [id number] - CMPOrder Info: [id number] - LIPIDOrder Info: [id number] - TSH Performed By: #### L 7000.0700 #### [facility] [address] [place], [address] BUN/CRE 10.6 RATIO Normal 10-20 [facility] Comment on above: Order Comment: Order Date: 07/11/24Order Info: [id number] - CMPOrder Info: [id number] - LIPIDOrder Info: [id number] - TSH Performed By: #### L 7000.0700 #### [facility] [address] [place], [address] Calcium [Mass/Vol] 8.7 mg/dL Normal 7.6-11.0 [facility] Comment on above: Order Comment: Order Date: 07/11/24Order Info: 86-1 - CMPOrder Info: [id number] - LIPIDOrder Info: [id number] - TSH Performed By: #### L 7000.0700 #### [facility] [address] [place], [address] Chloride [Moles/Vol] 103 mmol/L Normal 98-108 [facility] Comment on above: Order Comment: Order Date: 07/11/24Order Info: 86-1 - CMPOrder Info: [id number] - LIPIDOrder Info: [id number] - TSH Performed By: #### L 7000.0700 #### [facility] [address] [place], [address] CO2 [Moles/Vol] 24.0 mmol/L Normal 21.0-32.0 [facility] Comment on above: Order Comment: Order Date: 07/11/24Order Info: [id number] - CMPOrder Info: [id number] - LIPIDOrder Info: [id number] - TSH Performed By: #### L 7000.0700 #### [facility] [address] [place], [address] Creatinine [Mass/Vol] 0.83 mg/dL Normal 0.70-1.20 [facility] Comment on above: Order Comment: Order Date: 07/11/24Order Info: [id number] - CMPOrder Info: [id number] - LIPIDOrder Info: [id number] - TSH Performed By: #### L 7000.0700 #### [facility] [address] [place], [address] GAP 10 Normal 5-15 [facility] Comment on above: Order Comment: Order Date: 07/11/24Order Info: 86-1 - CMPOrder Info: [id number] - LIPIDOrder Info: [id number] - TSH Performed By: #### L 7000.0700 #### [facility] [address] [place], [address] GFR/1.73 sq M.predicted among non-blacks MDRD (S/P/Bld) [Vol rate/Area] 89 mL/min/{1.73_m2} Normal >60 [facility] Comment on above: Order Comment: Order Date: 07/11/24Order Info: [id number] - CMPOrder Info: [id number] - LIPIDOrder Info: [id number] - TSH Result Comment: mL/m in/1.73m2 CKD-EPI Creatinine Equation (2020) Performed By: #### L 7000.0700 #### [facility] [address] [place], [address] Globulin (S) [Mass/Vol] 2.9 g/dL Normal 2.2-4.2 [facility] Comment on above: Order Comment: Order Date: 07/11/24Order Info: [id number] - CMPOrder Info: [id number] - LIPIDOrder Info: [id number] - TSH Performed By: #### L 7000.0700 #### [facility] [address] [place], [address] Glucose [Mass/Vol] 98 mg/dL Normal 70-99 [facility] Comment on above: Order Comment: Order Date: 07/11/24Order Info: [id number] - CMPOrder Info: [id number] - LIPIDOrder Info: [id number] - TSH Performed By: #### L 7000.0700 #### [facility] [address] [place], [address] Potassium [Moles/Vol] 4.3 mmol/L Normal 3.3-5.1 [facility] Comment on above: Order Comment: Order Date: 07/11/24Order Info: [id number] - CMPOrder Info: [id number] - LIPIDOrder Info: [id number] - TSH Performed By: #### L 7000.0700 #### [facility] [address] [place], [address] Sodium [Moles/Vol] 137 mmol/L Normal 133-145 [facility] Comment on above: Order Comment: Order Date: 07/11/24Order Info: [id number] - CMPOrder Info: - LIPIDOrder Info: [id number] - TSH Performed By: #### L 7000.0700 #### [facility] [address] [place], [address] T PROT 6.9 g/dL Normal 5.9-8.4 [facility] Comment on above: Order Comment: Order Date: 07/11/24Order Info: [id number] - CMPOrder Info: [id number] - LIPIDOrder Info: [id number] - TSH Performed By: #### L 7000.0700 #### [facility] [address] [place], [address] Urea nitrogen [Mass/Vol] 9 mg/dL Normal 4-19 [facility] Comment on above: Order Comment: Order Date: 07/11/24Order Info: [id number] - CMPOrder Info: [id number] - LIPIDOrder Info: [id number] - TSH Performed By: #### L 7000.0700 #### [facility] [address] [place], [address] Eosinophil percentageOrdered By: Coral Martinez on 07-22-2024 Eosinophils/100 WBC (Bld) 1.7 % 0-5 [facility] Erythrocyte distribution wid th ratioOrdered By: Coral Martinez on 07-22-2024 Erythrocyte distribution width (RBC) [Ratio] 13.7 % 11.6-14.6 [facility] Erythrocyte distribution wid th standard deviationOrdered By: Coral Martinez on 07-22-2024 Erythrocyte distribution width (RBC) [Entitic vol] 49.8 fL High 35.1-43.9 [facility] Erythrocyte distribution width (RBC) [Ratio] 49.8 fl High 35.1-43.9 [facility] GFR/1.73 sq M.predicted diana g non-blacks MDRD (S/P/Bld) [Vol rate/Area]Ordered By: Coral Martinez on 07-22-2024 Estimated GFR (MDRD) Non-Af Amer 89 >60 [facility] Comment on above: mL/min/1.73m2 CKD-EP I Creatinine Equation (2020) Glomerular filtration rate ( GFR) estimation/1.73 sq m using serum, plasma, or whole bOrdered By: Coral Martinez on 07-22-2024 GFR/1.73 sq M.predicted among non-blacks MDRD (S/P/Bld) [Vol rate/Area] 89 mL/min/{1.73_m2} >60 [facility] Comment on above: mL/min/1.73m2 CKD-EP I Creatinine Equation (2020) Hematocrit Auto (Bld) [Volum e fraction]Ordered By: Coral Martinez on 07-22-2024 Hematocrit (Bld) [Volume fraction] 38.7 % 37-47 [facility] Hemoglobin measurementOrdere d By: Coral Martinez on 07-22-2024 Hemoglobin (Bld) [Mass/Vol] 12.7 g/dL 12.0-15.0 [facility] Immature granulocytes/100 WB C Auto (Bld)Ordered By: Coral Martinez on 07-22-2024 Immature granulocytes/100 WBC (Bld) 0.300 % 0.0-0.9 [facility] Comment on above: IG% - Immature Granu locytes (promyelocytes, myelocytes and metamyelocytes) > 1% indicates that a LEFT SHIFT is Present. L506.1001on 07-22-2024 Vitamin D 25-OH 25.0 ng/mL Low 30-100 [facility] Comment on above: Order Comment: Order Date: 07/11/24Order Info: [id number] CMPOrder Info: [id number] - LIPIDOrder Info: [id number] - TSH Result Comment: Linnea min D Status Deficiency: <20 ng/mL (50nmol/L) Insufficiency: 20-30 ng/mL (50-75 nmol/L) Sufficiency: 30-100 ng/mL (75-250 nmol/L) Toxicity: >100 ng/mL (>250 nmol/L) Performed By: #### L 7000.0700 #### [facility] [address] [place], [place], [id number] LDL calc ser/plasOrdered By: Coral Martinez on 07-22-2024 Cholesterol in LDL [Mass/Vol] 76 mg/dL [facility] Comment on above: Wdohgjlubu=523-015 m g/dL & Higher Sway=530 mg/dL or greater LDL Cholesterol, Calculated 76 mg/dL [facility] Comment on above: Qhvmdrllbk=467-287 m g/dL & Higher Ldpa=846 mg/dL or greater Laboratory - Chemistry and C hemistry - challengeOrdered By: Coral Martinez on 07-22-2024 AST [Catalytic activity/Vol] 32 U/L <32 [facility] Lipid Profileon 07-22-2024 CHOL:HDL 2.31 Normal [facility] Comment on above: Order Comment: Order Date: 07/11/24Order Info: [id number] - CMPOrder Info: [id number] - LIPIDOrder Info: [id number] - TSH Performed By: #### L 7000.0700 #### [facility] [address] [place], [place], [address] Cholesterol [Mass/Vol] 163 mg/dL Normal <=200 [facility] Comment on above: Order Comment: Order Date: 07/11/24Order Info: [id number] - CMPOrder Info: [id number] - LIPIDOrder Info: [id number] - TSH Result Comment: Chol esterol level, Desirable <200 mg/dL Borderline high cholesterol 200-239 mg/dL High cholesterol >=240 mg/dL Recommendations of the NCEP Adult Treatment Panel for the following risk-cutoff thresholds for the [place] population. Performed By: #### L 7000.0700 #### [facility] [address] [place], [address] Cholesterol in HDL [Mass/Vol] 71 mg/dL Normal [facility] Comment on above: Order Comment: Order Date: 07/11/24Order Info: [id number] - CMPOrder Info: [id number] - LIPIDOrder Info: [id number] - TSH Result Comment: [place] onal Cholesterol Education Program (NCEP) guidelines: <40 mg/dL: Low HDL-cholesterol (major risk factor for CHD) >= 60 mg/dL: High HDL-cholesterol (negative risk factor for CHD) HDL-cholesterol is affected by a number of factors, e.g. smoking, exercise, hormones, sex and age. Performed By: #### L 7000.0700 #### [facility] [address] [place], [address] Cholesterol in LDL [Mass/Vol] 76 mg/dL Normal [facility] Comment on above: Order Comment: Order Date: 07/11/24Order Info: [id number] - CMPOrder Info: [id number] - LIPIDOrder Info: [id number] - TSH Result Comment: Bord muopbf=505-766 mg/dL Higher Gygo=189 mg/dL or greater Performed By: #### L 7000.0700 #### [facility] [address] [place], [address] Cholesterol in VLDL [Mass/Vol] 17 mg/dL Normal 5-40 [facility] Comment on above: Order Comment: Order Date: 07/11/24Order Info: [id number] - CMPOrder Info: [id number] - LIPIDOrder Info: [id number] - TSH Performed By: #### L 7000.0700 #### [facility] [address] [place], [address] Triglyceride [Mass/Vol] 84 mg/dL Normal [facility] Comment on above: Order Comment: Order Date: 07/11/24Order Info: [id number] - CMPOrder Info: [id number] - LIPIDOrder Info: [id number] - TSH Result Comment: The drugs N-Acetylcysteine and Metamizole may falsely depress this assay. Normal range: <150 mg/dL Borderline High: 150-199 mg/dL High: 200-499 mg/dL Very High: >500 mg/dL Performed By: #### L 7000.0700 #### [facility] [address] [facility] [place], [address] Lymphocytes Auto (Unsp spec) [#/Vol]Ordered By: Coral Martinez on 07-22-2024 Lymphocytes (Bld) [#/Vol] 1.80 10*3/uL 0.83-4.51 [facility] Lymphocytes/100 WBC Auto (Un sp spec)Ordered By: Coral Martinez on 07-22-2024 Lymphocytes/100 WBC (Bld) 28.3 % 19-41 [facility] MCV (mean corpuscular volume ) determinationOrdered By: Coral Martinez on 07-22-2024 MCV (RBC) [Entitic vol] 98.2 fL 81-99 [facility] Mean corpuscular hemoglobin (MCH) determinationOrdered By: Coral Martinez on 07-22-2024 MCH (RBC) [Entitic mass] 32.2 pg High 27.0-32.0 [facility] Mean corpuscular hemoglobin concentration (MCHC) determinationOrdered By: Coral Martinez on 07-22-2024 MCHC (RBC) [Mass/Vol] 32.8 g/dL 32-36 [facility] Mean platelet volume determi nationOrdered By: Coral Martinez on 07-22-2024 Platelet mean volume (Bld) [Entitic vol] 9.6 fL 6.2-12.0 [facility] Monocyte percentageOrdered B y: Coral Martinez on 07-22-2024 Monocytes/100 WBC (Bld) 9.1 % 0-10 [facility] Neutrophil percentageOrdered By: Coral Martinez on 07-22-2024 Neutrophils/100 WBC (Bld) 59.7 % 47-70 [facility] Nucleated red blood cell per centageOrdered By: Coral Martinez on 07-22-2024 Nucleated RBC/100 WBC (Bld) [Ratio] 0 % 0-5 [facility] Platelet countOrdered By: Es Martinez on 07-22-2024 Platelets (Bld) [#/Vol] 240 10*3/uL 150-450 [facility] Potassium (Unsp spec) [Mass/ Vol]Ordered By: Coral Martinez on 07-22-2024 Potassium [Moles/Vol] 4.3 mmol/L 3.3-5.1 [facility] Potassium measurement (mass/ volume)Ordered By: Coral Martinez on 07-22-2024 Potassium (Unsp spec) [Mass/Vol] 4.3 mmol/L 3.3-5.1 [facility] RBC Auto (Bld) [#/Vol]Ordere d By: Coral Martinez on 07-22-2024 RBC (Bld) [#/Vol] 3.94 10*6/uL Low 4.2-5.4 [facility] Screening total cholesterol/ high density lipoprotein (HDL) cholesterol ratioOrdered By: Coral Martinez on 07-22-2024 Cholesterol.total/Lindy sterol in HDL [Mass ratio] 2.31 {ratio} [facility] Serum creatinine measurement (mass/volume)Ordered By: Coral Martinez on 07-22-2024 Creatinine [Mass/Vol] 0.83 mg/dL 0.70-1.20 [facility] Serum globulin measurementOr dered By: Coral Martinez on 07-22-2024 Globulin (S) [Mass/Vol] 2.9 g/dL 2.2-4.2 [facility] Serum glucose measurement (m ass/volume)Ordered By: Coral Martinez on 07-22-2024 Glucose [Mass/Vol] 98 mg/dL 70-99 [facility] Serum or plasma alanine jordan otransferase (ALT) measurementOrdered By: Coral Martinez on 07-22-2024 ALT [Catalytic activity/Vol] 35 U/L <35 [facility] Serum or plasma albumin chey urement (mass/volume)Ordered By: Coral Martinez on 07-22-2024 Albumin [Mass/Vol] 4.1 g/dL 3.5-5.0 [facility] Serum or plasma albumin/glob ulin mass ratioOrdered By: Coral Andinoke on 07-22-2024 Albumin/Globulin [Mass ratio] 1.4 {ratio} 0.9-2.4 [facility] Serum or plasma alkaline yony sphatase measurementOrdered By: Moeedgardo Martinez 07-22-2024 ALP [Catalytic activity/Vol] 70 U/L 35-104 [facility] Serum or plasma calcium chey urement (mass/volume)Ordered By: Coral Martinez on 07-22-2024 Calcium [Mass/Vol] 8.7 mg/dL 7.6-11.0 [facility] Serum or plasma cholesterol in HDL measurement (mass/volume)Ordered By: Moeedgardo Martinez on 07-22-2024 Cholesterol in HDL [Mass/Vol] 71 mg/dL >40 [facility] Comment on above: National Cholesterol Education Program (NCEP) guidelines:<40 mg/dL: Low HDL-cholesterol (major risk factor for CHD)>= 60 mg/dL: High HDL-cholesterol (negative risk factor for CHD)HDL-cholesterol is affected by a number of factors, e.g. smoking, exercise, hormones, sex and age. Serum or plasma cholesterol measurement (mass/volume)Ordered By: Coral Martinez on 07-22-2024 Cholesterol [Mass/Vol] 163 mg/dL <201 [facility] Comment on above: Cholesterol level, D esirable <200 mg/dLBorderline high cholesterol 200-239 mg/dLHigh cholesterol >=240 mg/dLRecommendations of the NCEP Adult Treatment Panel for the following risk-cutoff thresholds for the [place] population. Serum or plasma urea nitroge n measurement (mass/volume)Ordered By: Coral Martinez on 07-22-2024 Urea nitrogen [Mass/Vol] 9 mg/dL 4-19 [facility] Sodium levelOrdered By: Moe Martinez on 07-22-2024 Sodium [Moles/Vol] 137 mmol/L 133-145 [facility] TSH DL <= 0.005 mIU/L QnOrde red By: Coral Martinez on 07-22-2024 Thyroid Stimulating Hormone (TSH) 0.289 uIU/mL Low 0.300-4.200 [facility] TSH Qn 0.289 uIU/mL Low 0.300-4.200 [facility] Thyroid Stim Hormone (TSH)on 07-22-2024 TSH 0.289 uIU/mL Low 0.300-4.200 [facility] Comment on above: Order Comment: Order Date: 07/11/24Order Info: [id number] - CMPOrder Info: [id number] - LIPIDOrder Info: [id number] - TSH Performed By: #### L 7000.0700 #### [facility] [address] [place], [place], [address] Total proteinOrdered By: Karo Martinez on 07-22-2024 Protein [Mass/Vol] 6.9 g/dL 5.9-8.4 [facility] Triglycerides measurementOrd ered By: Coral Martinez on 07-22-2024 Triglyceride [Mass/Vol] 84 mg/dL <199 [facility] Comment on above: The drugs N-Acetylcy steine and Metamizole may falsely depress this assay. Normal range: <150 mg/dLBorderline High: 150-199 mg/dLHigh: 200-499 mg/dLVery High: >500 mg/dL Vitamin D, 25-hydroxyOrdered By: Coral Martinez on 07-22-2024 Vitamin D 25-Hydroxy 25.0 ng/mL Low 30-100 [facility] Comment on above: Vitamin D StatusDefi ciency: <20 ng/mL (50nmol/L)Insufficiency: 20-30 ng/mL (50-75 nmol/L)Sufficiency: 30-100 ng/mL (75-250 nmol/L)Toxicity: >100 ng/mL (>250 nmol/L) White blood cell (WBC) count Ordered By: Coral Martinez on 07-22-2024 WBC (Bld) [#/Vol] 6.4 10*3/uL 4.4-11.0 [facility] Absolute lymphocyte countOrd ered By: Clarice Liriano on 06-21-2024 Lymphocytes Auto (Unsp spec) [#/Vol] 2.27 10*3/uL 0.83-4.51 [facility] Absolute neutrophil countOrd ered By: Claricehanane Liriano on 06-21-2024 Neutrophils (Bld) [#/Vol] 3.8 10*3/uL 2.0-7.7 [facility] Albumin to globulin ratioOrd ered By: Claricehanane Liriano on 06-21-2024 Albumin/Globulin [Mass ratio] 0.9 {ratio} 0.9-2.4 [facility] Automated lymphocyte count a s percentage of total leukocytesOrdered By: Clarice Liriano on 06-21-2024 Lymphocytes/100 WBC Auto (Unsp spec) 33.0 % - [facility] Basophil percentageOrdered B y: Clarice Liriano on 06-21-2024 Basophils/100 WBC (Bld) 0.6 % 0-1 [facility] Bilirubin, totalOrdered By: Claricehanane Liriano on 06-21-2024 Bilirubin [Mass/Vol] 0.30 mg/dL 0.20-1.00 [facility] Comment on above: For patients on eltr ombopag therapy, use of Dimension [place] TBIL is not recommended. Blood urea nitrogen (BUN)/cr eatinine ratioOrdered By: Claricehanane Liriano on 06-21-2024 Urea nitrogen/Creatinine [Mass ratio] 11.6 mg/mg 10- [facility] CBC W/Diff, Automatedon 06-10 Absolute Lymph 2.27 X10 3/uL Normal 0.83-4.51 [facility] Comment on above: Performed By: #### L 500.4050, L100.0100 ####[facility] [address] [place], [address] Absolute Neut 3.8 X10 3/uL Normal 2.0-7.7 [facility] Comment on above: Performed By: #### L 500.4050, L100.0100 ####[facility] [address] [place], [address] Basophils/100 WBC (Bld) 0.6 % Normal 0-1 [facility] Comment on above: Performed By: #### L 500.4050, L100.0100 ####[facility] [address] [place], [address] Eosinophils/100 WBC (Bld) 1.6 % Normal 0-5 [facility] Comment on above: Performed By: #### L 500.4050, L100.0100 ####[facility] [address] [place], [address] Erythrocyte distribution width (RBC) [Ratio] 13.6 % Normal 11.6-14.6 [facility] Comment on above: Performed By: #### L 500.4050, L100.0100 ####[facility] [address] [place], [address] Hematocrit (Bld) [Volume fraction] 38.6 % Normal 37-47 [facility] Comment on above: Performed By: #### L 500.4050, L100.0100 ####[facility] [address] [place], [address] Hemoglobin (Bld) [Mass/Vol] 12.7 g/dL Normal 12.0-15.0 [facility] Comment on above: Performed By: #### L 500.4050, L100.0100 ####[facility] [address] [place], [address] IG% 0.100 Normal 0.0-0.9 [facility] Comment on above: Result Comment: IG% - Immature Granulocytes (promyelocytes, myelocytes and metamyelocytes) > 1% indicates that a LEFT SHIFT is Present. Performed By: #### L 500.4050, L100.0100 ####[facility] [address] [place], [address] Lymphocytes/100 WBC (Bld) 33.0 % Normal 19-41 [facility] Comment on above: Performed By: #### L 500.4050, L100.0100 ####[facility] [address] [place], [address] MCH (RBC) [Entitic mass] 32.2 pg High 27.0-32.0 [facility] Comment on above: Performed By: #### L 500.4050, L100.0100 ####[facility] [address] [place], [address] MCHC (RBC) [Mass/Vol] 32.9 g/dL Normal 32-36 [facility] Comment on above: Performed By: #### L 500.4050, L100.0100 ####[facility] [address] [place], [address] MCV (RBC) [Entitic vol] 97.7 fL Normal 81-99 [facility] Comment on above: Performed By: #### L 500.4050, L100.0100 ####[facility] [address] [place], [address] Monocytes/100 WBC (Bld) 9.8 % Normal 0-10 [facility] Comment on above: Performed By: #### L 500.4050, L100.0100 ####[facility] [address] [place], [address] Neutrophils/100 WBC (Bld) 54.9 % Normal 47-70 [facility] Comment on above: Performed By: #### L 500.4050, L100.0100 ####[facility] [address] [place], [address] Nucleated RBC (Bld) [#/Vol] 0 10*3/uL Normal 0-5 [facility] Comment on above: Performed By: #### L 500.4050, L100.0100 ####[facility] [address] [place], [address] Platelet mean volume (Bld) [Entitic vol] 10.4 fL Normal 6.2-12.0 [facility] Comment on above: Performed By: #### L 500.4050, L100.0100 ####[facility] [address] [place], [address] Platelets (Bld) [#/Vol] 248 10*3/uL Normal 150-450 [facility] Comment on above: Performed By: #### L 500.4050, L100.0100 ####[facility] [address] [place], [address] RBC (Bld) [#/Vol] 3.95 10*6/uL Low 4.2-5.4 [facility] Comment on above: Performed By: #### L 500.4050, L100.0100 ####[facility] [address] [place], [address] RDW SD 48.3 fl High 35.1-43.9 [facility] Comment on above: Performed By: #### L 500.4050, L100.0100 ####[facility] [address] [place], [address] WBC (Bld) [#/Vol] 6.9 10*3/uL Normal 4.4-11.0 [facility] Comment on above: Performed By: #### L 500.4050, L100.0100 ####[facility] [address] [place], [address] Carbon dioxide measurementOr dered By: Clarice Liriano on 06-21-2024 CO2 [Moles/Vol] 27.0 mmol/L 21.0-32.0 [facility] Chloride measurementOrdered By: Clarice Liriano on 06-21-2024 Chloride [Moles/Vol] 104 mmol/L 98-107 [facility] Comprehensive Metabolic Prof ilon 06-21-2024 Albumin [Mass/Vol] 3.6 g/dL Normal 3.2-5.0 [facility] Comment on above: Performed By: #### L 500.4050, L100.0100 ####[facility] [address] [place], [address] Albumin/Globulin [Mass ratio] 0.9 {ratio} Normal 0.9-2.4 [facility] Comment on above: Performed By: #### L 500.4050, L100.0100 ####[facility] [address] [place], [address] ALK P 83 U/L Normal 45-117 [facility] Comment on above: Performed By: #### L 500.4050, L100.0100 ####[facility] [address] [place], [address] ALT [Catalytic activity/Vol] 34 U/L Normal 13-56 [facility] Comment on above: Performed By: #### L 500.4050, L100.0100 ####[facility] [address] [place], [address] AST [Catalytic activity/Vol] 18 U/L Normal 15-37 [facility] Comment on above: Performed By: #### L 500.4050, L100.0100 ####[facility] [address] [place], [address] Bilirubin [Mass/Vol] 0.30 mg/dL Normal 0.20-1.00 [facility] Comment on above: Result Comment: For patients on eltrombopag therapy, use of Dimension [place] TBIL is not recommended. Performed By: #### L 500.4050, L100.0100 ####[facility] [address] [place], [address] BUN/CRE 11.6 RATIO Normal 10-20 [facility] Comment on above: Performed By: #### L 500.4050, L100.0100 ####[facility] [address] [place], [address] CA,Total 8.7 mg/dL Normal 8.5-10.1 [facility] Comment on above: Performed By: #### L 500.4050, L100.0100 ####[facility] [address] [place], [address] Chloride [Moles/Vol] 104 mmol/L Normal 98-107 [facility] Comment on above: Performed By: #### L 500.4050, L100.0100 ####[facility] [address] [place], [address] CO2 [Moles/Vol] 27.0 mmol/L Normal 21.0-32.0 [facility] Comment on above: Performed By: #### L 500.4050, L100.0100 ####[facility] [address] [place], [address] Creatinine [Mass/Vol] 0.86 mg/dL Normal 0.55-1.02 [facility] Comment on above: Result Comment: The validity of the calculated GFR GFRAA in patients over 70 years has not been determined. Clinical correlation is essential. Performed By: #### L 500.4050, L100.0100 ####[facility] [address] [place], [address] EST GFR - AA 92 mL/min Normal >60 [facility] Comment on above: Result Comment: Afri can [place] GFR Calc Performed By: #### L 500.4050, L100.0100 ####[facility] [address] [place], [address] GAP 8 Normal 5-15 [facility] Comment on above: Performed By: #### L 500.4050, L100.0100 ####[facility] [address] [place], [address] GFR/1.73 sq M.predicted among non-blacks MDRD (S/P/Bld) [Vol rate/Area] 76 mL/min/{1.73_m2} Normal >60 [facility] Comment on above: Result Comment: Non- GFR Calc Performed By: #### L 500.4050, L100.0100 ####[facility] [address] [place], [address] Globulin (S) [Mass/Vol] 3.9 g/dL Normal 2.2-4.2 [facility] Comment on above: Performed By: #### L 500.4050, L100.0100 ####[facility] [address] [place], [address] Glucose [Mass/Vol] 98 mg/dL Normal 74-106 [facility] Comment on above: Performed By: #### L 500.4050, L100.0100 ####[facility] [address] [place], [address] Potassium [Moles/Vol] 4.1 mmol/L Normal 3.5-5.1 [facility] Comment on above: Performed By: #### L 500.4050, L100.0100 ####[facility] [address] [place], [address] Sodium [Moles/Vol] 138 mmol/L Normal 136-145 [facility] Comment on above: Performed By: #### L 500.4050, L100.0100 ####[facility] [address] [place], [address] T PROT 7.5 g/dL Normal 6.4-8.2 [facility] Comment on above: Performed By: #### L 500.4050, L100.0100 ####[facility] [address] [place], [address] Urea nitrogen [Mass/Vol] 10 mg/dL Normal 7-18 [facility] Comment on above: Performed By: #### L 500.4050, L100.0100 ####[facility] [address] [place], [address] Eosinophil percentageOrdered By: Clarice Liriano on 06-21-2024 Eosinophils/100 WBC (Bld) 1.6 % 0-5 [facility] Erythrocyte distribution wid th ratioOrdered By: Clarice Liriano on 06-21-2024 Erythrocyte distribution width (RBC) [Ratio] 13.6 % 11.6-14.6 [facility] Erythrocyte distribution wid th standard deviationOrdered By: Clarice Liriano on 06-21-2024 Erythrocyte distribution width (RBC) [Entitic vol] 48.3 fL High 35.1-43.9 [facility] Erythrocyte distribution width (RBC) [Ratio] 48.3 fl High 35.1-43.9 [facility] Estimated glomerular filtrat ion rate (GFR) AmericanOrdered By: Clarice Liriano on 06-21-2024 Estimated GFR (MDRD) Amer 92 mL/min >60 [facility] Comment on above: GFR Calc Glomerular filtration rate ( GFR) estimationOrdered By: Claricehanane Liriano on 06-21-2024 Estimated GFR (MDRD) Non-Af Amer 76 mL/min >60 [facility] Comment on above: Non- GFR Calc GFR/1.73 sq M.predicted among non-blacks MDRD (S/P/Bld) [Vol rate/Area] 76 mL/min/{1.73_m2} >60 [facility] Comment on above: Non- GFR Calc Glucose measurementOrdered B y: Clarice Liriano on 06-21-2024 Glucose [Mass/Vol] 98 mg/dL 74-106 [facility] Hematocrit Auto (Bld) [Volum e fraction]Ordered By: Clarice Liriano on 06-21-2024 Hematocrit (Bld) [Volume fraction] 38.6 % 37-47 [facility] Hemoglobin measurementOrdere d By: Clarice Liriano on 06-21-2024 Hemoglobin (Bld) [Mass/Vol] 12.7 g/dL 12.0-15.0 [facility] Immature granulocytes/100 WB C Auto (Bld)Ordered By: Clarice Liriano on 06-21-2024 Immature granulocytes/100 WBC (Bld) 0.100 % 0.0-0.9 [facility] Comment on above: IG% - Immature Granu locytes (promyelocytes, myelocytes and metamyelocytes) > 1% indicates that a LEFT SHIFT is Present. Laboratory - Chemistry and C hemistry - challengeOrdered By: Clarice Liriano on 06-21-2024 AST [Catalytic activity/Vol] 18 U/L 15-37 [facility] Lymphocytes Auto (Unsp spec) [#/Vol]Ordered By: Clarice Liriano on 06-21-2024 Lymphocytes (Bld) [#/Vol] 2.27 10*3/uL 0.83-4.51 [facility] Lymphocytes/100 WBC Auto (Un sp spec)Ordered By: Clarice Liriano on 06-21-2024 Lymphocytes/100 WBC (Bld) 33.0 % 19-41 [facility] MCV (mean corpuscular volume ) determinationOrdered By: Clarice Liriano on 06-21-2024 MCV (RBC) [Entitic vol] 97.7 fL 81-99 [facility] Mean corpuscular hemoglobin (MCH) determinationOrdered By: Clarice Liriano on 06-21-2024 MCH (RBC) [Entitic mass] 32.2 pg High 27.0-32.0 [facility] Mean corpuscular hemoglobin concentration (MCHC) determinationOrdered By: Clarice Liriano on 06-21-2024 MCHC (RBC) [Mass/Vol] 32.9 g/dL 32-36 [facility] Mean platelet volume determi nationOrdered By: Clarice Liriano on 06-21-2024 Platelet mean volume (Bld) [Entitic vol] 10.4 fL 6.2-12.0 [facility] Monocyte percentageOrdered B y: Clarice Liriano on 06-21-2024 Monocytes/100 WBC (Bld) 9.8 % 0-10 [facility] Neutrophil percentageOrdered By: Clarice Liriano on 06-21-2024 Neutrophils/100 WBC (Bld) 54.9 % 47-70 [facility] Nucleated red blood cell per centageOrdered By: Clarice Liriano on 06-21-2024 Nucleated RBC/100 WBC (Bld) [Ratio] 0 % 0-5 [facility] Platelet countOrdered By: Lynn Liriano on 06-21-2024 Platelets (Bld) [#/Vol] 248 10*3/uL 150-450 [facility] Potassium measurementOrdered By: Clarice Liriano on 06-21-2024 Potassium [Moles/Vol] 4.1 mmol/L 3.5-5.1 [facility] RBC Auto (Bld) [#/Vol]Ordere d By: Clarice Liriano on 06-21-2024 RBC (Bld) [#/Vol] 3.95 10*6/uL Low 4.2-5.4 [facility] Serum anion gap measurementO rdered By: Clarice Liriano on 06-21-2024 Anion gap [Moles/Vol] 8 mmol/L 5-15 [facility] Serum globulin measurementOr dered By: Clarice Liriano on 06-21-2024 Globulin (S) [Mass/Vol] 3.9 g/dL 2.2-4.2 [facility] Serum or plasma alanine jordan otransferase (ALT) measurementOrdered By: Clarice Liriano on 06-21-2024 ALT [Catalytic activity/Vol] 34 U/L 13-56 [facility] Serum or plasma albumin chey urement (mass/volume)Ordered By: Clarice Liriano on 06-21-2024 Albumin [Mass/Vol] 3.6 g/dL 3.2-5.0 [facility] Serum or plasma alkaline yony sphatase measurementOrdered By: Clarice Liriano on 06-21-2024 ALP [Catalytic activity/Vol] 83 U/L 45-117 [facility] Serum or plasma calcium chey urement (mass/volume)Ordered By: Clarice Liriano on 06-21-2024 Calcium [Mass/Vol] 8.7 mg/dL 8.5-10.1 [facility] Serum or plasma creatinine m easurement (mass/volume)Ordered By: Clarice Liriano on 06-21-2024 Creatinine [Mass/Vol] 0.86 mg/dL 0.55-1.02 [facility] Comment on above: The validity of the calculated GFR & GFRAA in patients over 70 years has not been determined. Clinical correlation is essential. Serum or plasma urea nitroge n measurement (mass/volume)Ordered By: Clarice Liriano on 06-21-2024 Urea nitrogen [Mass/Vol] 10 mg/dL 7-18 [facility] Sodium levelOrdered By: Elana Liriano on 06-21-2024 Sodium [Moles/Vol] 138 mmol/L 136-145 [facility] Total proteinOrdered By: Jersey Liriano on 06-21-2024 Protein [Mass/Vol] 7.5 g/dL 6.4-8.2 [facility] White blood cell (WBC) count Ordered By: Clarice Liriano on 06-21-2024 WBC (Bld) [#/Vol] 6.9 10*3/uL 4.4-11.0 [facility] CBC W/Diff, Automatedon 03-10 Absolute Lymph 2.23 X10 3/uL Normal 0.83-4.51 [facility] Comment on above: Performed By: #### L 100.0100, L500.4050 ####[facility] [address] [place], [address] Absolute Neut 5.2 X10 3/uL Normal 2.0-7.7 [facility] Comment on above: Performed By: #### L 100.0100, L500.4050 ####[facility] [address] [place], [address] Basophils/100 WBC (Bld) 0.7 % Normal 0-1 [facility] Comment on above: Performed By: #### L 100.0100, L500.4050 ####[facility] [address] [place], [address] Eosinophils/100 WBC (Bld) 1.7 % Normal 0-5 [facility] Comment on above: Performed By: #### L 100.0100, L500.4050 ####[facility] [address] [place], [address] Erythrocyte distribution width (RBC) [Ratio] 12.7 % Normal 11.6-14.6 [facility] Comment on above: Performed By: #### L 100.0100, L500.4050 ####[facility] [address] [place], [address] Hematocrit (Bld) [Volume fraction] 41.7 % Normal 37-47 [facility] Comment on above: Performed By: #### L 100.0100, L500.4050 ####[facility] [address] [place], [address] Hemoglobin (Bld) [Mass/Vol] 13.5 g/dL Normal 12.0-15.0 [facility] Comment on above: Performed By: #### L 100.0100, L500.4050 ####[facility] [address] [place], [address] IG% 0.200 Normal 0.0-0.9 [facility] Comment on above: Result Comment: IG% - Immature Granulocytes (promyelocytes, myelocytes and metamyelocytes) > 1% indicates that a LEFT SHIFT is Present. Performed By: #### L 100.0100, L500.4050 ####[facility] [address] [place], [address] Lymphocytes/100 WBC (Bld) 27.1 % Normal 19-41 [facility] Comment on above: Performed By: #### L 100.0100, L500.4050 ####[facility] [address] [place], [address] MCH (RBC) [Entitic mass] 31.9 pg Normal 27.0-32.0 [facility] Comment on above: Performed By: #### L 100.0100, L500.4050 ####[facility] [address] [place], [address] MCHC (RBC) [Mass/Vol] 32.4 g/dL Normal 32-36 [facility] Comment on above: Performed By: #### L 100.0100, L500.4050 ####[facility] [address] [place], [address] MCV (RBC) [Entitic vol] 98.6 fL Normal 81-99 [facility] Comment on above: Performed By: #### L 100.0100, L500.4050 ####[facility] [address] [place], [address] Monocytes/100 WBC (Bld) 7.4 % Normal 0-10 [facility] Comment on above: Performed By: #### L 100.0100, L500.4050 ####[facility] [address] [place], [address] Neutrophils/100 WBC (Bld) 62.9 % Normal 47-70 [facility] Comment on above: Performed By: #### L 100.0100, L500.4050 ####[facility] [address] [place], [address] Nucleated RBC (Bld) [#/Vol] 0 10*3/uL Normal 0-5 [facility] Comment on above: Performed By: #### L 100.0100, L500.4050 ####[facility] [address] [place], [address] Platelet mean volume (Bld) [Entitic vol] 10.2 fL Normal 6.2-12.0 [facility] Comment on above: Performed By: #### L 100.0100, L500.4050 ####[facility] [address] [place], [address] Platelets (Bld) [#/Vol] 248 10*3/uL Normal 150-450 [facility] Comment on above: Performed By: #### L 100.0100, L500.4050 ####[facility] [address] [place], [address] RBC (Bld) [#/Vol] 4.23 10*6/uL Normal 4.2-5.4 [facility] Comment on above: Performed By: #### L 100.0100, L500.4050 ####[facility] [address] [place], [address] RDW SD 45.6 fl High 35.1-43.9 [facility] Comment on above: Performed By: #### L 100.0100, L500.4050 ####[facility] [address] [place], [address] WBC (Bld) [#/Vol] 8.2 10*3/uL Normal 4.4-11.0 [facility] Comment on above: Performed By: #### L 100.0100, L500.4050 ####[facility] [address] [place], [address] Comprehensive Metabolic Prof [facility] 03-21-2024 Albumin [Mass/Vol] 4.0 g/dL Normal 3.2-5.0 [facility] Comment on above: Performed By: #### L 100.0100, L500.4050 ####[facility] [address] [place], [address] Albumin/Globulin [Mass ratio] 1.1 {ratio} Normal 0.9-2.4 [facility] Comment on above: Performed By: #### L 100.0100, L500.4050 ####[facility] [address] [place], [address] ALK P 78 U/L Normal 45-117 [facility] Comment on above: Performed By: #### L 100.0100, L500.4050 ####[facility] [address] [place], [address] ALT [Catalytic activity/Vol] 38 U/L Normal 13-56 [facility] Comment on above: Performed By: #### L 100.0100, L500.4050 ####[facility] [address] [place], [address] AST [Catalytic activity/Vol] 19 U/L Normal 15-37 [facility] Comment on above: Performed By: #### L 100.0100, L500.4050 ####[facility] [address] [place], [address] Bilirubin [Mass/Vol] 0.40 mg/dL Normal 0.20-1.00 [facility] Comment on above: Result Comment: For patients on eltrombopag therapy, use of Dimension [place] TBIL is not recommended. Performed By: #### L 100.0100, L500.4050 ####[facility] [address] [place], [address] BUN/CRE 14.4 RATIO Normal 10-20 [facility] Comment on above: Performed By: #### L 100.0100, L500.4050 ####[facility] [address] [place], [address] CA,Total 9.1 mg/dL Normal 8.5-10.1 [facility] Comment on above: Performed By: #### L 100.0100, L500.4050 ####[facility] [address] [place], [address] Chloride [Moles/Vol] 104 mmol/L Normal 98-107 [facility] Comment on above: Performed By: #### L 100.0100, L500.4050 ####[facility] [address] [place], [address] CO2 [Moles/Vol] 26.0 mmol/L Normal 21.0-32.0 [facility] Comment on above: Performed By: #### L 100.0100, L500.4050 ####[facility] [address] [place], [address] Creatinine [Mass/Vol] 0.90 mg/dL Normal 0.55-1.02 [facility] Comment on above: Result Comment: The validity of the calculated GFR GFRAA in patients over 70 years has not been determined. Clinical correlation is essential. Performed By: #### L 100.0100, L500.4050 ####[facility] [address] [place], [address] EST GFR - AA 87 mL/min Normal >60 [facility] Comment on above: Result Comment: Afri can Libyan GFR Calc Performed By: #### L 100.0100, L500.4050 ####[facility] [address] [place], [address] GAP 6 Normal 5-15 [facility] Comment on above: Performed By: #### L 100.0100, L500.4050 ####[facility] [address] [place], [address] GFR/1.73 sq M.predicted among non-blacks MDRD (S/P/Bld) [Vol rate/Area] 72 mL/min/{1.73_m2} Normal >60 [facility] Comment on above: Result Comment: Non- GFR Calc Performed By: #### L 100.0100, L500.4050 ####[facility] [address] [place], [address] Globulin (S) [Mass/Vol] 3.7 g/dL Normal 2.2-4.2 [facility] Comment on above: Performed By: #### L 100.0100, L500.4050 ####[facility] [address] [place], [address] Glucose [Mass/Vol] 93 mg/dL Normal 74-106 [facility] Comment on above: Performed By: #### L 100.0100, L500.4050 ####[facility] [address] [place], [address] Potassium [Moles/Vol] 4.1 mmol/L Normal 3.5-5.1 [facility] Comment on above: Performed By: #### L 100.0100, L500.4050 ####[facility] [address] [place], [address] Sodium [Moles/Vol] 136 mmol/L Normal 136-145 [facility] Comment on above: Performed By: #### L 100.0100, L500.4050 ####[facility] [address] [place], [address] T PROT 7.7 g/dL Normal 6.4-8.2 [facility] Comment on above: Performed By: #### L 100.0100, L500.4050 ####[facility] [address] [place], [address] Urea nitrogen [Mass/Vol] 13 mg/dL Normal 7-18 [facility] Comment on above: Performed By: #### L 100.0100, L500.4050 ####[facility] [address] [place], [address] CBC + DIFFon 01-06-2024 Baso # 0.02 x10EE3/UL Normal 0.00 - 0.10 [facility] Comment on above: Performed By: #### 2 84120 #### [address] [address] Basophils/100 WBC (Bld) 0.3 % Normal 0.0 - 2.0 [facility] Comment on above: Performed By: #### 2 18808 #### [address] [address] CBC + DIFF Normal [facility] Comment on above: Result Comment: CBC- COMPLETE BLOOD COUNT Performed By: #### 2 97431 #### [facility],[address] [place], [place] [address] EO # 0.12 x10EE3/UL Normal 0.00 - 0.50 [facility] Comment on above: Performed By: #### 2 10621 #### [facility],[address] [place] [address] Eosinophils/100 WBC (Bld) 1.8 % Normal 0.0 - 7.0 [facility] Comment on above: Performed By: #### 2 47456 #### [facility],[address] [place] [address] Erythrocyte distribution width (RBC) [Ratio] 13.2 % Normal 12.0 - 15.6 [facility] Comment on above: Performed By: #### 2 88437 #### [facility],[address] [place] [address] Hematocrit (Bld) [Volume fraction] 39.9 % Normal 34.0 - 46.0 [facility] Comment on above: Performed By: #### 2 10082 #### [facility],[address] [place] [address] Hemoglobin (Bld) [Mass/Vol] 13.4 g/dL Normal 12.0 - 16.0 [facility] Comment on above: Performed By: #### 2 20902 #### [facility],[address] [place] [address] Lymph # 2.00 x10EE3/UL Normal 0.80 - 2.80 [facility] Comment on above: Performed By: #### 2 95758 #### [facility],[address] [place], [place] [address] Lymphocytes/100 WBC (Bld) 29.8 % Normal 20.0 - 45.0 [facility] Comment on above: Performed By: #### 2 80763 #### [facility],[address] [place] [address] MANUAL DIFF N/A Normal [facility] Comment on above: Performed By: #### 2 74412 #### [facility],[address] [place] [address] MCH (RBC) [Entitic mass] 32 pg Normal 27 - 33 [facility] Comment on above: Performed By: #### 2 97470 #### [facility],[address] [place] [address] MCHC 34 X10 3 Normal 32 - 36 [facility] Comment on above: Performed By: #### 2 60371 #### [facility],[address] [place] [address] MCV (RBC) [Entitic vol] 96 fL Normal 80 - 99 [facility] Comment on above: Performed By: #### 2 57734 #### [facility],[address] [place] [address] Fleming # 0.52 x10EE3/UL Normal 0.20 - 1.00 [facility] Comment on above: Performed By: #### 2 41652 #### [facility],[address] [place] [address] MONOS % 7.8 % Normal 0.0 - 10.0 [facility] Comment on above: Performed By: #### 2 31715 #### [facility],[address] [place] [address] Morphology Deonte (Bld) [Interp] N/A Normal [facility] Comment on above: Performed By: #### 2 78199 #### [facility],[address] [place] [address] Neut # 4.04 x10EE3/UL Normal 1.50 - 7.10 [facility] Comment on above: Performed By: #### 2 11901 #### [facility],[address] [place] [address] Neutrophils/100 WBC (Bld) 60.3 % Normal 46.0 - 76.0 [facility] Comment on above: Performed By: #### 2 24686 #### [facility],[address] [place] [address] PLATELET 267 x10EE3/UL Normal 150 - 450 [facility] Comment on above: Performed By: #### 2 98464 #### [facility],[address] [place] [address] Platelet mean volume (Bld) [Entitic vol] 7.3 fL Normal 6.6 - 10.5 [facility] Comment on above: Result Comment: AUTO MATED DIFFERENTIAL Performed By: #### 2 65993 #### [facility],[address] [place] [address] RBC 4.18 x 10EE6/UL Normal 4.10 - 5.30 [facility] Comment on above: Performed By: #### 2 47503 #### [facility],[address] [place] [address] WBC 6.7 x 10EE3/UL Normal 4.5 - 10.8 [facility] Comment on above: Performed By: #### 2 36456 #### [facility],[address] [place] [address] CMP with eGFRon 01-06-2024 AGE 43 years Normal [facility] Comment on above: Performed By: #### 2 95829 #### [facility],[address] [place] [address] Albumin [Mass/Vol] 3.7 g/dL Normal 3.4 - 5.0 [facility] Comment on above: Performed By: #### 2 53839 #### [facility],[address] [place] [address] Albumin/Globulin [Mass ratio] 1.0 {ratio} Normal 0.9 - 1.6 [facility] Comment on above: Performed By: #### 2 87495 #### [facility],[address] [place] [address] ALK PHOS 91 U/L Normal 46 - 116 [facility] Comment on above: Performed By: #### 2 46551 #### [facility],[address] [place] [address]99[address] ALT [Catalytic activity/Vol] 34 U/L Normal 16 - 63 [facility] Comment on above: Performed By: #### 2 90783 #### [facility],[address] [place] [address] 76[address] Anion gap [Moles/Vol] 9 mmol/L Low 10 - 20 [facility] Comment on above: Performed By: #### 2 10294 #### [facility],[address] [place] [address] 49971 AST [Catalytic activity/Vol] 20 U/L Normal 13 - 39 [facility] Comment on above: Performed By: #### 2 13912 #### [facility],[address] [place] [address] B/C RATIO 15 ratio Normal 0 - 30 [facility] Comment on above: Performed By: #### 2 87014 #### [facility],[address] [place] [address] 35817 Bilirubin [Mass/Vol] 0.4 mg/dL Normal 0.2 - 1.0 [facility] Comment on above: Performed By: #### 2 47707 #### [facility],[address] [place] [address] 79148 Calcium [Mass/Vol] 8.7 mg/dL Normal 8.5 - 10.1 [facility] Comment on above: Performed By: #### 2 42959 #### [facility],[address] [place] [address]342 Chloride [Moles/Vol] 102 mmol/L Normal 98 - 107 [facility] Comment on above: Performed By: #### 2 30144 #### [facility],[address] [place] [address] CMP with eGFR Normal [facility] Comment on above: Result Comment: COMP REHENSIVE METABOLIC PANEL Performed By: #### 2 66740 #### [facility],[address] [place] [address] CO2 [Moles/Vol] 29.9 mmol/L Normal 21.0 - 32.0 [facility] Comment on above: Performed By: #### 2 25262 #### [facility],[address] [place] [address] 66117 Creatinine [Mass/Vol] 0.89 mg/dL Normal 0.55 - 1.02 [facility] Comment on above: Performed By: #### 2 92544 #### [facility],[address] [place] [address] GFR/1.73 sq M.predicted among non-blacks MDRD (S/P/Bld) [Vol rate/Area] mL/min/{1.73_m2} Normal 60 - 999 [facility] Comment on above: Performed By: #### 2 22021 #### [facility],[address] [place] [address] Result Comment: ACCO RDING TO THE NATIONAL KIDNEY DISEASE EDUCATION PROGRAM(NKDE), A NORMAL eGFR IS A VALUE GREATER THAN OR EQUAL TO 60 ML/MIN/1.73 SQ METERS. CHRONIC KIDNEY DISEASE: <60mL/MIN/1.73 SQ METERS KIDNEY FAILURE: <15mL/MIN/1.73 SQ METERS THIS TEST SHOULD ONLY BE USED FOR PATIENTS 18 YEARS OF AGE AND OLDER. Globulin (S) [Mass/Vol] 3.8 g/dL Normal 1.5 - 3.8 [facility] Comment on above: Performed By: #### 2 80942 #### [facility],[address] [place] [address] Glucose [Mass/Vol] 94 mg/dL Normal 74 - 106 [facility] Comment on above: Performed By: #### 2 01556 #### [facility],[address] [place] [address] Potassium [Moles/Vol] 4.0 mmol/L Normal 3.5 - 5.1 [facility] Comment on above: Performed By: #### 2 30146 #### [facility],[address] [place] [address] Protein [Mass/Vol] 7.5 g/dL Normal 6.4 - 8.2 [facility] Comment on above: Performed By: #### 2 85451 #### [place] [address] Sodium [Moles/Vol] 137 mmol/L Normal 136 - 145 [facility] Comment on above: Performed By: #### 2 08543 #### [place] [address] Urea nitrogen [Mass/Vol] 13 mg/dL Normal 7 - 18 [facility] Comment on above: Performed By: #### 2 32027 #### [place] [address] CBC + DIFFon 12-01-2023 Baso # 0.03 x10EE3/UL Normal 0.00 - 0.10 [facility] Comment on above: Performed By: #### 2 16805 #### [place] [id number] Basophils/100 WBC (Bld) 0.4 % Normal 0.0 - 2.0 [facility] Comment on above: Performed By: #### 2 13853 #### [place] [address] CBC + DIFF Normal [facility] Comment on above: Result Comment: CBC- COMPLETE BLOOD COUNT Performed By: #### 2 74766 #### [place] [address] EO # 0.07 x10EE3/UL Normal 0.00 - 0.50 [facility] Comment on above: Performed By: #### 2 93494 #### [facility],[address] [place] [address]68[address] Eosinophils/100 WBC (Bld) 0.8 % Normal 0.0 - 7.0 [facility] Comment on above: Performed By: #### 2 01166 #### [facility],[address] [place] [address] Erythrocyte distribution width (RBC) [Ratio] 13.4 % Normal 12.0 - 15.6 [facility] Comment on above: Performed By: #### 2 25081 #### [facility],[address] [place] [address] Hematocrit (Bld) [Volume fraction] 41.3 % Normal 34.0 - 46.0 [facility] Comment on above: Performed By: #### 2 87003 #### [facility],[address] [place] [address] Hemoglobin (Bld) [Mass/Vol] 13.9 g/dL Normal 12.0 - 16.0 [facility] Comment on above: Performed By: #### 2 78651 #### [facility],[address] [place] [address] 49025 Lymph # 1.96 x10EE3/UL Normal 0.80 - 2.80 [facility] Comment on above: Performed By: #### 2 90797 #### [facility],[address] [place] [address]10[address] Lymphocytes/100 WBC (Bld) 22.9 % Normal 20.0 - 45.0 [facility] Comment on above: Performed By: #### 2 05835 #### [facility],[address] [place] [address] MANUAL DIFF N/A Normal [facility] Comment on above: Performed By: #### 2 78529 #### [facility],[address] [place] [address] MCH (RBC) [Entitic mass] 32 pg Normal 27 - 33 [facility] Comment on above: Performed By: #### 2 43872 #### [facility],[address] [place] [address] MCHC 34 X10 3 Normal 32 - 36 [facility] Comment on above: Performed By: #### 2 79299 #### [facility],[address] [place] [address] MCV (RBC) [Entitic vol] 96 fL Normal 80 - 99 [facility] Comment on above: Performed By: #### 2 69520 #### [facility],[address] [place] [address] Fleming # 0.51 x10EE3/UL Normal 0.20 - 1.00 [facility] Comment on above: Performed By: #### 2 77614 #### [facility],[address] [place] [address] MONOS % 5.9 % Normal 0.0 - 10.0 [facility] Comment on above: Performed By: #### 2 27042 #### [facility],[address] [place] [address] Morphology Deonte (Bld) [Interp] N/A Normal [facility] Comment on above: Performed By: #### 2 29911 #### [facility],[address] [place] [address] Neut # 5.97 x10EE3/UL Normal 1.50 - 7.10 [facility] Comment on above: Performed By: #### 2 54482 #### [facility],[address] [place] [address] Neutrophils/100 WBC (Bld) 70.0 % Normal 46.0 - 76.0 [facility] Comment on above: Performed By: #### 2 54686 #### [facility],[address] [place] [address] 59983 PLATELET 265 x10EE3/UL Normal 150 - 450 [facility] Comment on above: Performed By: #### 2 74521 #### [facility],[address] [place] [address] 48287 Platelet mean volume (Bld) [Entitic vol] 7.8 fL Normal 6.6 - 10.5 [facility] Comment on above: Result Comment: AUTO MATED DIFFERENTIAL Performed By: #### 2 99180 #### [facility],[address] [place], [place] [address] RBC 4.29 x 10EE6/UL Normal 4.10 - 5.30 [facility] Comment on above: Performed By: #### 2 24215 #### [facility],[address] [place] [address] 73090 WBC 8.5 x 10EE3/UL Normal 4.5 - 10.8 [facility] Comment on above: Performed By: #### 2 76261 #### [facility],[address] [place], [place] [address] CMP with eGFRon 12-01-2023 AGE 43 years Normal [facility] Comment on above: Performed By: #### 2 36509 #### [facility],[address] [place] [address] 02520 Albumin [Mass/Vol] 3.6 g/dL Normal 3.4 - 5.0 [facility] Comment on above: Performed By: #### 2 29004 #### [facility],[address] [place] [address] 12880 Albumin/Globulin [Mass ratio] 1.0 {ratio} Normal 0.9 - 1.6 [facility] Comment on above: Performed By: #### 2 22464 #### [facility],[address] [place] [address] 65508 ALK PHOS 83 U/L Normal 46 - 116 [facility] Comment on above: Performed By: #### 2 78613 #### [facility],[address] [place] [address] 27978 ALT [Catalytic activity/Vol] 32 U/L Normal 16 - 63 [facility] Comment on above: Performed By: #### 2 36216 #### [facility],[address] [place] [address] 14483 Anion gap [Moles/Vol] 10 mmol/L Normal 10 - 20 [facility] Comment on above: Performed By: #### 2 63689 #### [facility],[address] [place] [address] 34812 AST [Catalytic activity/Vol] 21 U/L Normal 13 - 39 [facility] Comment on above: Performed By: #### 2 66161 #### [facility],[address] [place] [address] 50399 B/C RATIO 12 ratio Normal 0 - 30 [facility] Comment on above: Performed By: #### 2 16694 #### [facility],[address] [place] [address] 39806 Bilirubin [Mass/Vol] 0.4 mg/dL Normal 0.2 - 1.0 [facility] Comment on above: Performed By: #### 2 66676 #### [facility],[address] [place] [address] 78291 Calcium [Mass/Vol] 8.6 mg/dL Normal 8.5 - 10.1 [facility] Comment on above: Performed By: #### 2 61013 #### [facility],[address] [place] [address] 13275 Chloride [Moles/Vol] 102 mmol/L Normal 98 - 107 [facility] Comment on above: Performed By: #### 2 47376 #### [facility],[address] [place] [address] 29420 CMP with eGFR Normal [facility] Comment on above: Result Comment: COMP REHENSIVE METABOLIC PANEL Performed By: #### 2 52971 #### [facility],[address] [place] [address] 03052 CO2 [Moles/Vol] 29.0 mmol/L Normal 21.0 - 32.0 [facility] Comment on above: Performed By: #### 2 39823 #### [facility],[address] [place] [address] 09984 Creatinine [Mass/Vol] 0.90 mg/dL Normal 0.55 - 1.02 [facility] Comment on above: Performed By: #### 2 00233 #### [facility],[address] [place] [address] 20781 GFR/1.73 sq M.predicted among non-blacks MDRD (S/P/Bld) [Vol rate/Area] mL/min/{1.73_m2} Normal 60 - 999 [facility] Comment on above: Performed By: #### 2 50687 #### [facility],[address] [place] [address] 04195 Result Comment: ACCO RDING TO THE NATIONAL KIDNEY DISEASE EDUCATION PROGRAM(NKDE), A NORMAL eGFR IS A VALUE GREATER THAN OR EQUAL TO 60 ML/MIN/1.73 SQ METERS. CHRONIC KIDNEY DISEASE: <60mL/MIN/1.73 SQ METERS KIDNEY FAILURE: <15mL/MIN/1.73 SQ METERS THIS TEST SHOULD ONLY BE USED FOR PATIENTS 18 YEARS OF AGE AND OLDER. Globulin (S) [Mass/Vol] 3.7 g/dL Normal 1.5 - 3.8 [facility] Comment on above: Performed By: #### 2 68773 #### [facility],[address] [place] [address] 17388 Glucose [Mass/Vol] 94 mg/dL Normal 74 - 106 [facility] Comment on above: Performed By: #### 2 61571 #### [facility],[address] [place] [address] 19969 Potassium [Moles/Vol] 4.1 mmol/L Normal 3.5 - 5.1 [facility] Comment on above: Performed By: #### 2 51247 #### [facility],[address] [place] [address] 63202 Protein [Mass/Vol] 7.3 g/dL Normal 6.4 - 8.2 [facility] Comment on above: Performed By: #### 2 55875 #### [facility],[address] [place] [address] 32306 Sodium [Moles/Vol] 137 mmol/L Normal 136 - 145 [facility] Comment on above: Performed By: #### 2 81408 #### [facility],[address] [place] [address] 55042 Urea nitrogen [Mass/Vol] 11 mg/dL Normal 7 - 18 [facility] Comment on above: Performed By: #### 2 72665 #### [facility] [facility],[address] [place] [address]404 LIPID PROFILEon 12-01-2023 Cholesterol [Mass/Vol] 166 mg/dL Normal 0 - 240 [facility] Comment on above: Performed By: #### 2 99437 #### [facility],[address] [place] [address] 58657 Cholesterol in HDL [Mass/Vol] 75 mg/dL High 40 - 60 [facility] Comment on above: Performed By: #### 2 41139 #### [facility],[address] [place] [address] 97225 Cholesterol in LDL [Mass/Vol] 77 mg/dL Normal 0 - 129 [facility] Comment on above: Performed By: #### 2 39201 #### [facility],[address] [place] [address] 80713 Cholesterol.total/Lnidy sterol in HDL [Mass ratio] 2.2 {ratio} Normal 0.0 - 5.0 [facility] Comment on above: Performed By: #### 2 39207 #### [facility],[address] [place] [address] 26102 Lipid 1996 panel Normal [facility] Comment on above: Result Comment: LIPI D PROFILE Performed By: #### 2 73602 #### [place] [id number] Triglyceride [Mass/Vol] 72 mg/dL Normal 0 - 150 [facility] Comment on above: Performed By: #### 2 60965 #### [place] [address] T4-FREE (FREE THYROXINE)on 0 12-01-2023 Free T4 [Mass/Vol] 0.72 ng/dL Low 0.76 - 1.46 [facility] Comment on above: Result Comment: P otential of falsely elevated results when biotin concentrations are > 10 ng/mL. Performed By: #### 2 67613 #### [place] [address] TSHon 12-01-2023 TSH Qn 0.98 m[IU]/L Normal 0.35 - 3.74 [facility] Comment on above: Performed By: #### 2 93668 #### [place] [address] CBC + DIFFon 07-15-2023 Baso # 0.03 x10EE3/UL Normal 0.00 - 0.10 [facility] Comment on above: Performed By: #### 2 82230 #### [facility],[address] [place], [place] [id number] Basophils/100 WBC (Bld) 0.4 % Normal 0.0 - 2.0 [facility] Comment on above: Performed By: #### 2 55710 #### [facility],[address] [place] [address] CBC + DIFF Normal [facility] Comment on above: Result Comment: CBC- COMPLETE BLOOD COUNT Performed By: #### 2 81678 #### [place] [id number] EO # 0.06 x10EE3/UL Normal 0.00 - 0.50 [facility] Comment on above: Performed By: #### 2 28598 #### [facility],[address] [place], [place] [id number] Eosinophils/100 WBC (Bld) 0.7 % Normal 0.0 - 7.0 [facility] Comment on above: Performed By: #### 2 04100 #### [facility],[address] [place] [address] Erythrocyte distribution width (RBC) [Ratio] 13.2 % Normal 12.0 - 15.6 [facility] Comment on above: Performed By: #### 2 34801 #### [facility],[address] [place] [address] Hematocrit (Bld) [Volume fraction] 39.8 % Normal 34.0 - 46.0 [facility] Comment on above: Performed By: #### 2 50478 #### [facility],[address] [place] [address] Hemoglobin (Bld) [Mass/Vol] 13.3 g/dL Normal 12.0 - 16.0 [facility] Comment on above: Performed By: #### 2 59172 #### [facility],[address] [place] [address] 26694 Lymph # 2.60 x10EE3/UL Normal 0.80 - 2.80 [facility] Comment on above: Performed By: #### 2 77117 #### [facility],[address] [place], [place] [id number] Lymphocytes/100 WBC (Bld) 31.6 % Normal 20.0 - 45.0 [facility] Comment on above: Performed By: #### 2 26578 #### [facility],[address] [place] [address] MANUAL DIFF N/A Normal [facility] Comment on above: Performed By: #### 2 11506 #### [facility],[address] [place] [address] MCH (RBC) [Entitic mass] 31 pg Normal 27 - 33 [facility] Comment on above: Performed By: #### 2 27099 #### [facility],[address] [place] [address] MCHC 34 X10 3 Normal 32 - 36 [facility] Comment on above: Performed By: #### 2 07693 #### [facility],[address] [place] [address] MCV (RBC) [Entitic vol] 92 fL Normal 80 - 99 [facility] Comment on above: Performed By: #### 2 64336 #### [facility],[address] [place] [address] [place] # 0.72 x10EE3/UL Normal 0.20 - 1.00 [facility] Comment on above: Performed By: #### 2 85369 #### [facility],[address] [place] [address] MONOS % 8.8 % Normal 0.0 - 10.0 [facility] Comment on above: Performed By: #### 2 86931 #### [facility],[address] [place] [address] Morphology Deonte (Bld) [Interp] N/A Normal [facility] Comment on above: Performed By: #### 2 04391 #### [facility],[address] [place] [address] Neut # 4.81 x10EE3/UL Normal 1.50 - 7.10 [facility] Comment on above: Performed By: #### 2 61638 #### [facility],[address] [place] [address] Neutrophils/100 WBC (Bld) 58.6 % Normal 46.0 - 76.0 [facility] Comment on above: Performed By: #### 2 39336 #### [facility],[address] [place] [address] 50885 PLATELET 287 x10EE3/UL Normal 150 - 450 [facility] Comment on above: Performed By: #### 2 58405 #### [facility],[address] [place] [address] 13912 Platelet mean volume (Bld) [Entitic vol] 8.0 fL Normal 6.6 - 10.5 [facility] Comment on above: Result Comment: AUTO MATED DIFFERENTIAL Performed By: #### 2 37739 #### [facility],[address] [place] [address] 47082 RBC 4.31 x 10EE6/UL Normal 4.10 - 5.30 [facility] Comment on above: Performed By: #### 2 82797 #### [facility],[address] [place] [address] 06193 WBC 8.2 x 10EE3/UL Normal 4.5 - 10.8 [facility] Comment on above: Performed By: #### 2 28556 #### [facility],[address] [place] [address] 97192 CMP with eGFRon 07-15-2023 AGE 43 years Normal [facility] Comment on above: Performed By: #### 2 25963 #### [facility],[address] [place] [address] 72900 Albumin [Mass/Vol] 3.5 g/dL Normal 3.4 - 5.0 [facility] Comment on above: Performed By: #### 2 62075 #### [facility],[address] [place] [address] 45350 Albumin/Globulin [Mass ratio] 0.9 {ratio} Normal 0.9 - 1.6 [facility] Comment on above: Performed By: #### 2 79580 #### [facility],[address] [place] [address] 84653 ALK PHOS 76 U/L Normal 46 - 116 [facility] Comment on above: Performed By: #### 2 79911 #### [facility],[address] [place] [address] 64520 ALT [Catalytic activity/Vol] 39 U/L Normal 16 - 63 [facility] Comment on above: Performed By: #### 2 23992 #### [facility],[address] [place] [address] 47363 Anion gap [Moles/Vol] 16 mmol/L Normal 10 - 20 [facility] Comment on above: Performed By: #### 2 92615 #### [facility],[address] [place] [address] 68382 AST [Catalytic activity/Vol] 24 U/L Normal 13 - 39 [facility] Comment on above: Performed By: #### 2 18059 #### [facility],[address] [place] [address] 50121 B/C RATIO 17 ratio Normal 0 - 30 [facility] Comment on above: Performed By: #### 2 42438 #### [facility],[address] [place] [address] 41127 Bilirubin [Mass/Vol] 0.4 mg/dL Normal 0.2 - 1.0 [facility] Comment on above: Performed By: #### 2 41589 #### [facility],[address] [place] [address] 68193 Calcium [Mass/Vol] 8.7 mg/dL Normal 8.5 - 10.1 [facility] Comment on above: Performed By: #### 2 26787 #### [facility],[address] [place] [address] 75808 Chloride [Moles/Vol] 104 mmol/L Normal 98 - 107 [facility] Comment on above: Performed By: #### 2 28131 #### [facility],[address] [place] [address] 16137 CMP with eGFR Normal [facility] Comment on above: Result Comment: COMP REHENSIVE METABOLIC PANEL Performed By: #### 2 61473 #### [facility],[address] [place] [address] 47208 CO2 [Moles/Vol] 25.2 mmol/L Normal 21.0 - 32.0 [facility] Comment on above: Performed By: #### 2 73873 #### [facility],[address] [place] [address] 82963 Creatinine [Mass/Vol] 0.90 mg/dL Normal 0.55 - 1.02 [facility] Comment on above: Performed By: #### 2 17241 #### [facility],[address] [place] [address] 60890 GFR/1.73 sq M.predicted among non-blacks MDRD (S/P/Bld) [Vol rate/Area] mL/min/{1.73_m2} Normal 60 - 999 [facility] Comment on above: Performed By: #### 2 21664 #### [facility],[address] [place] [address] 21727 Result Comment: ACCO RDING TO THE NATIONAL KIDNEY DISEASE EDUCATION PROGRAM(NKDE), A NORMAL eGFR IS A VALUE GREATER THAN OR EQUAL TO 60 ML/MIN/1.73 SQ METERS. CHRONIC KIDNEY DISEASE: <60mL/MIN/1.73 SQ METERS KIDNEY FAILURE: <15mL/MIN/1.73 SQ METERS THIS TEST SHOULD ONLY BE USED FOR PATIENTS 18 YEARS OF AGE AND OLDER. Globulin (S) [Mass/Vol] 3.9 g/dL High 1.5 - 3.8 [facility] Comment on above: Performed By: #### 2 89521 #### [facility],[address] [place] [address] 37728 Glucose [Mass/Vol] 106 mg/dL Normal 74 - 106 [facility] Comment on above: Performed By: #### 2 65223 #### [facility],[address] [place] [address] 08033 Potassium [Moles/Vol] 3.8 mmol/L Normal 3.5 - 5.1 [facility] Comment on above: Performed By: #### 2 87226 #### [facility],[address] [place] [address] 42933 Protein [Mass/Vol] 7.4 g/dL Normal 6.4 - 8.2 [facility] Comment on above: Performed By: #### 2 95806 #### [facility],[address] [place] [address] 98172 Sodium [Moles/Vol] 141 mmol/L Normal 136 - 145 [facility] Comment on above: Performed By: #### 2 86719 #### [facility],[address] [place] [address] 24251 Urea nitrogen [Mass/Vol] 15 mg/dL Normal 7 - 18 [facility] Comment on above: Performed By: #### 2 27899 #### [facility],[address] [place], [place] [address] LABORATORYOrdered By: SYSTEM SYSTEM on 01-19-2023 Albumin [...] (S/P/Bld) [Vol rate/Area] ml/min/1.73sqm Invalid Interpretation Code [facility] Comment on above: Interpretive Data: [...] (S/P/Bld) [Vol rate/Area] ml/min/1.73sqm Invalid Interpretation Code [facility] Comment on above: Interpretive Data: [...] Invalid Interpretation Code 1.5 - 3.8 G/dL AH ADM SS Glucose [Mass/Vol] 91 mg/dL Invalid Interpretation Code 70 - 110 mg/dL AH ADM SS Hematocrit (Bld) [Volume fraction] 37.8 [...] Invalid Interpretation Code 8.0 - 22.0 mg/dL ADM SS Urea nitrogen/Creatinine [Mass ratio] 14.5 ratio Invalid Interpretation Code 10.0 - 22.0 ratio AH ADM SS WBC (Bld) [#/Vol] 7.6 103/mcL Invalid Interpretation Code 4.5 - 10.8 10^3/mcL Workflow SS Laboratory - Chemistry and C hemistry - challengeOrdered By: Dr. Shin on 05-25-2022 HCG ( test) Ql (U) Negative [facility] Comment on above: Very dilute urine sp ecimens, as indicated by a low specificgravity, may not contain warehouse representative levels of hCG. If is still suspected, a first morning urinespecimen should be collected 48 hours later and tested. Absolute lymphocyte countOrd ered By: Dr. Liriano on 05-19-2022 Lymphocytes Auto (Unsp spec) [#/Vol] 3.05 10*3/uL 0.83-4.51 [facility] Basophil percentageOrdered B y: Dr. Liriano on 05-19-2022 Basophils/100 WBC (Bld) 0.5 % 0-1 [facility] Bilirubin [Mass/Vol] 0.30 mg/dL 0.20-1.00 [facility] Comment on above: For patients on eltr ombopag therapy, use of Dimension [place] TBIL is not recommended. Chloride [Moles/Vol] 102 mmol/L 98-107 [facility] Eosinophils/100 WBC (Bld) 0.6 % 0-5 [facility] Glucose [Mass/Vol] 100 mg/dL 74-106 [facility] Comment on above: Fasting Glucose resu lt from 100 to 125 mg/dL suggests IMPAIRED HOMEOSTASIS per A.D.A. criteria. Neutrophils (Bld) [#/Vol] 6.1 10*3/uL 2.0-7.7 [facility] Neutrophils/100 WBC (Bld) 60.9 % 47-70 [facility] Potassium [Moles/Vol] 3.9 mmol/L 3.5-5.1 [facility] Protein [Mass/Vol] 7.4 g/dL 6.4-8.2 [facility] Sodium [Moles/Vol] 138 mmol/L 136-145 [facility] WBC (Bld) [#/Vol] 10.0 10*3/uL 4.4-11.0 [facility] Blood erythrocytes count (nu mber/volume)Ordered By: Dr. Liriano on 05-19-2022 RBC (Bld) [#/Vol] 4.03 10*6/uL 4.2-5.4 [facility] Blood hemoglobin measurement (mass/volume)Ordered By: Dr. Liriano on 05-19-2022 Hemoglobin (Bld) [Mass/Vol] 13.2 g/dL 12.0-15.0 [facility] Blood lymphocytes/100 leukoc ytesOrdered By: Dr. Liriano on 05-19-2022 Lymphocytes/100 WBC (Bld) 30.7 % 19-41 [facility] Blood monocytes/100 leukocyt esOrdered By: Dr. Liriano on 05-19-2022 Monocytes/100 WBC (Bld) 7.1 % 0-10 [facility] Blood platelet mean volumeOr dered By: Dr. Liriano on 05-19-2022 Platelet mean volume (Bld) [Entitic vol] 9.7 fL 6.2-12.0 [facility] Determination of erythrocyte mean corpuscular volume (MCV)Ordered By: Dr. Liriano on 05-19-2022 MCV (RBC) [Entitic vol] 99.3 fL 81-99 [facility] Hematocrit Auto (Bld) [Volum e fraction]Ordered By: Dr. Liriano on 05-19-2022 Hematocrit (Bld) [Volume fraction] 40.0 % 37-47 [facility] Laboratory - Chemistry and C hemistry - challengeOrdered By: Dr. Liriano on 05-19-2022 ALP [Catalytic activity/Vol] 63 U/L 45-117 [facility] ALT [Catalytic activity/Vol] 33 U/L 13-56 [facility] CO2 [Moles/Vol] 27.0 mmol/L 21.0-32.0 [facility] Globulin (S) [Mass/Vol] 3.4 g/dL 2.2-4.2 [facility] Urea nitrogen/Creatinine [Mass ratio] 17.3 mg/mg 10-20 [facility] Laboratory - Hematology and Cell countsOrdered By: Dr. Liriano on 05-19-2022 Erythrocyte distribution width (RBC) [Entitic vol] 47.7 fL 35.1-43.9 [facility] Erythrocyte distribution width (RBC) [Ratio] 13.2 % 11.6-14.6 [facility] Immature granulocytes/100 WBC (Bld) 0.200 % 0.0-0.9 [facility] Comment on above: IG% - Immature Granu locytes (promyelocytes, myelocytes and metamyelocytes) > 1% indicates that a LEFT SHIFT is Present. MCH (RBC) [Entitic mass] 32.8 pg 27.0-32.0 [facility] Nucleated RBC/100 WBC (Bld) [Ratio] 0 % 0-5 [facility] MCHC Auto (RBC) [Mass/Vol]Or dered By: Dr. Liriano on 05-19-2022 MCHC (RBC) [Mass/Vol] 33.0 g/dL 32-36 [facility] No Panel InformationOrdered By: Dr. Liriano on 05-19-2022 Estimated GFR (MDRD) Amer 86 mL/min >60 [facility] Comment on above: GFR Calc Estimated GFR (MDRD) Non-Af Amer 71 mL/min >60 [facility] Comment on above: Non- GFR Calc Platelets bldOrdered By: Dr. Liriano on 05-19-2022 Platelets (Bld) [#/Vol] 271 10*3/uL 150-450 [facility] Serum or plasma albumin chey urement (mass/volume)Ordered By: Dr. Liriano on 05-19-2022 Albumin [Mass/Vol] 4.0 g/dL 3.2-5.0 [facility] Serum or plasma albumin/glob ulin mass ratioOrdered By: Dr. Liriano on 05-19-2022 Albumin/Globulin [Mass ratio] 1.2 {ratio} 0.9-2.4 [facility] Serum or plasma calcium chey urement (mass/volume)Ordered By: Dr. Liriano on 05-19-2022 Calcium [Mass/Vol] 8.9 mg/dL 8.5-10.1 [facility] Serum or plasma creatinine m easurement (mass/volume)Ordered By: Dr. Liriano on 05-19-2022 Creatinine [Mass/Vol] 0.92 mg/dL 0.55-1.02 [facility] Comment on above: The validity of the calculated GFR & GFRAA in patients over 70 years has not been determined. Clinical correlation is essential. Serum or plasma urea nitroge n measurement (mass/volume)Ordered By: Dr. Liriano on 05-19-2022 Urea nitrogen [Mass/Vol] 16 mg/dL 7-18 [facility] Thin prep Papanicolaou smear with manual screeningOrdered By: Dr. Liriano on 05-19-2022 Thin prep Papanicolaou smear with manual screening 18 U/L 15-37 [facility] Thin prep Papanicolaou smear with manual screening 9 5-15 [facility] .Auto Diffon 02-19-2022 Basophil, Absolute 0.0 10 3/mcL Normal 0.0-0.3 [facility] Comment on above: Performed By: #### C MP, GFR #### [place] [address] Eosinophil, Absolute 0.0 10 3/mcL Normal 0.0-0.7 [facility] ([place]) Comment on above: Performed By: #### C MP, GFR #### [address] [address] Lymphocyte, Absolute 2.2 10 3/mcL Normal 0.9-4.3 [facility] ([place]) Comment on above: Performed By: #### C MP, GFR #### [address] [address] Monocyte, Absolute 0.4 10 3/mcL Normal 0.1-1.4 [facility] Comment on above: Performed By: #### C MP, GFR #### [address] [address] .Auto DiffOrdered By: SYSTEM SYSTEM on 02-19-2022 Basophils/100 WBC (Bld) 0.5 % Normal 0.0-2.5 A H Workflow SS Comment on above: Performed By: #### C MP, GFR #### [address] [address] Eosinophils/100 WBC (Bld) 0.7 % Normal 0.0-6.0 AH Workflow SS Comment on above: Performed By: #### C MP, GFR #### [address] [address] Lymphocytes/100 WBC (Bld) 33.6 % Normal 20.0-40.0 AH Workflow SS Comment on above: Performed By: #### C MP, GFR #### [address] [address] Monocytes/100 WBC (Bld) 5.7 % Normal 2.0-13.0 A H Workflow SS Comment on above: Performed By: #### C MP, GFR #### [address] [address] Neutrophils/100 WBC (Bld) 59.5 % Normal 50.0-75.0 AH Workflow SS Comment on above: Performed By: #### C MP, GFR #### [address] [address] .GFRon 02-19-2022 GFR Non- >60 Normal [facility] ([place]) Comment on above: Result Comment: [...] Performed By: #### C MP, GFR #### [address] [address] GFR >60 [facility] Comment on above: Result Comment: GFR [...] Performed By: #### C MP, GFR #### [address] [address] .NEUABSon 02-19-2022 Neutrophil, Absolute 3.9 10 3/mcL Normal 2.3-8.1 [facility] ([place]) Comment on above: Performed By: #### C MP, GFR #### [address] [address] CBCOrdered By: SYSTEM SYSTEM on 02-19-2022 Erythrocyte distribution width (RBC) [Ratio] 13.7 % Normal 11.5-15.5 Workflow SS Comment on above: Performed By: #### C MP, GFR #### [address] [address] Hematocrit (Bld) [Volume fraction] 39.6 % Normal 34.0-46.0 AH Workflow SS Comment on above: Performed By: #### C MP, GFR #### [place] [address] MCH (RBC) [Entitic mass] 32.0 pg Normal 27.0-33.0 AH Workflow SS Comment on above: Performed By: #### C MP, GFR #### [place] [address] MCHC 33.6 G/dL Normal 32.0-36.0 AH Workflow SS Comment on above: Performed By: #### C MP, GFR #### [place] [address] MCV (RBC) [Entitic vol] 95.1 fL Normal 80.0-99.0 A H Workflow SS Comment on above: Performed By: #### C MP, GFR #### [place] [address] Platelet mean volume (Bld) [Entitic vol] 8.0 fL Normal 6.6-10.5 AH Workflow SS Comment on above: Performed By: #### C MP, GFR #### [place] [address] CBCon 02-19-2022 Hgb 13.3 G/dL Normal 12.0-16.0 [facility] ([place]) Comment on above: Performed By: #### C MP, GFR #### [place] [address] Platelet 257 10 3/mcL Normal 150-450 [facility] ([place]) Comment on above: Performed By: #### C MP, GFR #### [place] [address] RBC 4.16 10 6/mcL Normal 4.10-5.30 [facility] ([place]) Comment on above: Performed By: #### C MP, GFR #### [place] [address] WBC 6.6 10 3/mcL Normal 4.5-10.8 [facility] ([place]) Comment on above: Performed By: #### C MP, GFR #### [place] [address] CMPon 02-19-2022 Albumin Level 4.1 G/dL Normal 3.2-4.8 [facility] ([place]) Comment on above: Performed By: #### C MP, GFR #### [place] [address] ALT [Catalytic activity/Vol] 25 U/L Normal 10-49 [facility] ([place] Comment on above: Performed By: #### C MP, GFR #### [place] [address] Bili Total 0.30 mg/dL Normal 0.20-1.20 [facility] ([place]) Comment on above: Result Comment: Use of this assay is not recommended for patients undergoing treatment with eltrombopag due to the potential for falsely elevated results. Performed By: #### C MP, GFR #### [place] [address] BUN/Creatinine Ratio 15.9 ratio Normal 10.0-22.0 [facility] Comment on above: Performed By: #### C MP, GFR #### [place] [address] Total Protein 7.3 G/dL Normal 5.7-8.2 [facility] ([place]) Comment on above: Result Comment: No te - New Reference Range in effect 19 Performed By: #### C MP, GFR #### [place] [address] CMPOrdered By: SYSTEM SYSTEM on 02-19-2022 Albumin/Globulin [Mass ratio] 1.3 {ratio} Normal 0.9-1.6 AH ADM SS Comment on above: Performed By: #### C MP, GFR #### [place] [id number] ALP [Catalytic activity/Vol] 81 U/L Normal 38-126 AH ADM SS Comment on above: Performed By: #### C MP, GFR #### [place] [id number] AST [Catalytic activity/Vol] 19 U/L Normal 8-34 AH ADM SS Comment on above: Performed By: #### C MP, GFR #### [address] [address] Calcium [Mass/Vol] 9.5 mg/dL Normal 8.7-10.4 AH ADM SS Comment on above: Performed By: #### C MP, GFR #### [address] [address] Chloride [Moles/Vol] 106 mmol/L Normal 98-110 AH A DM SS Comment on above: Performed By: #### C MP, GFR #### [address] [address] CO2 [Moles/Vol] 27 mmol/L Normal 22-32 AH ADM SS Comment on above: Performed By: #### C MP, GFR #### [address] [address] Creatinine [Mass/Vol] 0.88 mg/dL Normal 0.50-1.20 AH ADM SS Comment on above: Performed By: #### C MP, GFR #### [address] [address] Electrolyte Balance 6.0 mEq/L Normal 4.0-15.0 AH AD M SS Comment on above: Performed By: #### C MP, GFR #### [address] [address] Globulin 3.2 G/dL Normal 1.5-3.8 AH ADM SS Comment on above: Performed By: #### C MP, GFR #### [address] [address] Glucose [Mass/Vol] 127 mg/dL High 70-110 AH ADM SS Comment on above: Performed By: #### C MP, GFR #### [address] [address] Potassium [Moles/Vol] 4.1 mmol/L Normal 3.5-5.0 AH ADM SS Comment on above: Performed By: #### C MP, GFR #### [address] [address] Sodium [Moles/Vol] 139 mmol/L Normal 136-145 AH ADM SS Comment on above: Performed By: #### C MP, GFR #### [address] [address] Urea nitrogen [Mass/Vol] 14.0 mg/dL Normal 8.0-22.0 AH ADM SS Comment on above: Performed By: #### C MP, GFR #### [address] [address] LABORATORYOrdered By: SYSTEM SYSTEM on 02-19-2022 Albumin [...] (S/P/Bld) [Vol rate/Area] ml/min/1.73sqm Invalid Interpretation Code AH Chemistry S GFR/1.73 sq M.predicted among non-blacks MDRD (S/P/Bld) [Vol rate/Area] ml/min/1.73sqm Invalid Interpretation Code Chemistry S Hemoglobin (Bld) [Mass/Vol] 13.3 G/dL Invalid Interpretation Code 12.0 - 16.0 G/dL AH Workflow SS Lymphocytes (Bld) [#/Vol] 2.2 103/mcL Invalid Interpretation Code 0.9 - 4.3 10^3/mcL AH Workflow SS Monocytes (Bld) [#/Vol] 0.4 103/mcL Invalid Interpretation Code 0.1 - 1.4 10^3/mcL AH Workflow SS Neutrophils (Bld) [#/Vol] 3.9 103/mcL Invalid Interpretation Code 2.3 - 8.1 10^3/mcL AH Workflow SS Platelets (Bld) [#/Vol] 257 103/mcL Invalid Interpretation Code 150 - 450 10^3/mcL AH Workflow SS Protein [Mass/Vol] 7.3 G/dL Invalid Interpretation Code 5.7 - 8.2 G/dL AH ADM SS RBC (Bld) [#/Vol] 4.16 106/mcL Invalid Interpretation Code 4.10 - 5.30 10^6/mcL AH Workflow SS Urea nitrogen/Creatinine [Mass ratio] 15.9 ratio Invalid Interpretation Code 10.0 - 22.0 ratio AH ADM SS WBC (Bld) [#/Vol] 6.6 103/mcL Invalid Interpretation Code 4.5 - 10.8 10^3/mcL AH Workflow SS TB by QuantiFERON *OUTSIDE U SE ONLY*on 01-31-2021 Interpretation TBNEG Normal [facility] Comment on above: Performed By: #### I NTPGP #### [facility] [employer] [facility] [address] [place] [address] Mitogen minus Nil >10 Normal [facility] Comment on above: Performed By: #### I NTPGP #### [facility] [employer] [facility] [address] [place] [address] TB NIL 0.03 IU/mL Normal [facility] Comment on above: Performed By: #### I NTPGP #### [facility] [employer] [facility] [address] [place] [address] TB Result NEGAT Normal Negative [facility] Comment on above: Performed By: #### I NTPGP #### [facility] [employer] [facility] [address] [place] [address] TB1 Ag minus Nil 0.00 IU/mL Normal <0.35 [facility] Comment on above: Performed By: #### I NTPGP #### [facility] [employer] [facility] [address] [place] [address] TB2 Ag minus Nil 0.01 IU/mL Normal <0.35 [facility] Comment on above: Performed By: #### I NTPGP #### [facility] [employer] [facility] [address] [place] [address] ZOE by IFAon 01-20-2021 ZOE Pattern ANANOT Normal [facility] Comment on above: Performed By: #### A HBSQ, HBSAG, AHCV1B, RF #### [facility]ine [facility] [address] [place] [phone] #### ANAIFS, CCP #### [facility] Immuno Assay [address] [phone] ZOE Titer Normal Negative [facility] Reference Lab Comment on above: Result Comment: Nega tive Normal range : negatie at <1:80 serum dilution. Performed By: #### A HBSQ, HBSAG, AHCV1B, RF #### [facility] Routine Lab [address] [phone] #### ANAIFS, CCP #### [facility] [address] [phone] Nuclear Ab IF (S) [Titer] Negative Normal Negative [facility] Comment on above: Performed By: #### A HBSQ, HBSAG, AHCV1B, RF #### [facility] Routine Lab [address] [phone] #### ANAIFS, CCP #### [facility] [address] [phone] CCP Antibody, IgGon 01-21-20 21 CCP Antibody, IgG <15 Normal <20 [facility] Reference Lab Comment on above: Performed By: #### A HBSQ, HBSAG, AHCV1B, RF #### [facility] Routine Lab [address] [phone] #### ANAIFS, CCP #### [facility] [address] [phone] Hep C Ab IA w/Confon 021 Hepatitis C Ab IA NEGAT Normal Negative [facility] Reference Lab Comment on above: Performed By: #### A HBSQ, HBSAG, AHCV1B, RF #### [facility] Routine Lab [address] [address] #### ANAIFS, CCP #### [facility] [address] [address] HepB SurfaceAb,Quanton 01-20 HepB SurfaceAb,Quant <8.00 Normal <8.00 [facility] Reference Lab Comment on above: Performed By: #### A HBSQ, HBSAG, AHCV1B, RF #### [facility] Routine Lab [address] [place] [address] #### ANAIFS, CCP #### [facility] Immuno Assay [address] [place] [phone] Hepatitis B Surf. Agon 01-20 Hepatitis B Surf. Ag NEGAT Normal Negative [facility] Reference Lab Comment on above: Performed By: #### A HBSQ, HBSAG, AHCV1B, RF #### [facility] Routine Lab [address] [place] [address] #### ANAIFS, CCP #### [facility] Immuno Assay [address] [place] [phone] Rheumatoid Factoron 01-20-20 21 Rheumatoid Factor 14 IU/mL Normal <16 [facility] Reference Lab Comment on above: Performed By: #### A HBSQ, HBSAG, AHCV1B, RF #### [facility] Routine Lab [address] [place] [phone] #### ANAIFS, CCP #### [facility] [address] [phone] Arash 10-31-2020 TSI <0.10 Normal <0.55 [facility] Reference Lab Comment on above: Performed By: #### H SCRP #### [facility] Routine Lab [address] [place] [phone] #### TSIGIM #### [facility] Immunology [address] [address] TSI Qualitative NEGAT Normal Negative [facility] Reference Lab Comment on above: Performed By: #### H SCRP #### [facility] Routine Lab [address] [address] #### TSIGIM #### [facility] Immunology [address] [address] Ultra-sensitive CRPon 2020 UltraSens C-ReacProt 2.9 mg/L Normal <3.1 [facility] Reference Lab Comment on above: Performed By: #### H SCRP #### [facility] Routine Lab [address] [address] #### TSIGIM #### [facility] Immunology [address] [address] Vital Signs Date Time Vital Sign Value Performing Clinician Faci lity 01-16-2025 07:27-0400 Body temperature 97.9 [degF] Coral Martinez MD Work Phone: [facility] 01-16-2025 07:27-0400 Diastolic blood pressure 61 mm[Hg] Coral Martinez MD Work Phone: [facility] 01-16-2025 07:27-0400 Heart rate 73 /min Coral Martinez MD Work Phone: [facility] 01-16-2025 07:27-0400 Respiratory rate 16 /min Coral Martinez MD Work Phone: [facility] 01-16-2025 07:27-0400 SaO2% (BldA) [Mass fraction] 100 % Coral Martinez MD Work Phone: [facility] 01-16-2025 07:27-0400 Systolic blood pressure 106 mm[Hg] Coral Martinez MD Work Phone: [facility] 01-16-2025 05:55-0400 Body height 154.94 cm Croal Martinez MD Work Phone: [facility] 01-16-2025 05:55-0400 Body mass index (BMI) [Ratio] 35.8 kg/m2 Coral Martinez MD Work Phone: [facility] 01-16-2025 05:55-0400 Body weight 86 kg Coral Martinez MD Work Phone: [facility] 12-12-2024 07:20-0400 Body temperature 96.9 [degF] Coral Martinez MD Work Phone: [facility] 12-12-2024 07:20-0400 Diastolic blood pressure 67 mm[Hg] Coral Martinez MD Work Phone: [facility] 12-12-2024 07:20-0400 Heart rate 74 /min Coral Martinez MD Work Phone: [facility] 12-12-2024 07:20-0400 Respiratory rate 16 /min Coral Martinez MD Work Phone: [facility] 12-12-2024 07:20-0400 SaO2% (BldA) [Mass fraction] 100 % Coral Martinez MD Work Phone: [facility] 12-12-2024 07:20-0400 Systolic blood pressure 107 mm[Hg] Coral Martinez MD Work Phone: [facility] 12-12-2024 05:59-0400 Body height 154.94 cm Coral Martinez MD Work Phone: [facility] 12-12-2024 05:59-0400 Body mass index (BMI) [Ratio] 38.7 kg/m2 Coral Martinez MD Work Phone: [facility] 12-12-2024 05:59-0400 Body weight 92.98 kg Coral Martinez MD Work Phone: [facility] 10-14-2024 21:50-0400 Body temperature 98.1 [degF] Jnenifer DE LA TORRE Work Phone: [facility] 10-14-2024 21:50-0400 Diastolic blood pressure 61 mm[Hg] Jennifer Moran IN SERVICE EDUCATION TEACHER-C Work Phone: [facility] 10-14-2024 21:50-0400 Heart rate 75 /min Jennifer Moran IN SERVICE EDUCATION TEACHER-C Work Phone: [facility] 10-14-2024 21:50-0400 Respiratory rate 16 /min Jennifer Moran IN SERVICE EDUCATION TEACHER-C Work Phone: [facility] 10-14-2024 21:50-0400 SaO2% (BldA) [Mass fraction] 99 % Jennifer Moran IN SERVICE EDUCATION TEACHER-C Work Phone: [facility] 10-14-2024 21:50-0400 Systolic blood pressure 120 mm[Hg] Jennifer Moran IN SERVICE EDUCATION TEACHER-C Work Phone: [facility] 10-14-2024 17:43-0400 Body height 154.94 cm Jennifer Moran IN SERVICE EDUCATION TEACHER-C Work Phone: [facility] 10-14-2024 17:43-0400 Body mass index (BMI) [Ratio] 40.7 kg/m2 Jennifer Moran IN SERVICE EDUCATION TEACHER-C Work Phone: [facility] 10-14-2024 17:43-0400 Body weight 97.74 kg Jennifer Moran IN SERVICE EDUCATION TEACHER-C Work Phone: [facility] 05-25-2022 09:30-0500 Diastolic blood pressure 70 mm[Hg] [facility] 05-25-2022 09:30-0500 Heart rate 74 /min [facility] 05-25-2022 09:30-0500 Respiratory rate 16 /min [facility] 05-25-2022 09:30-0500 SaO2% (BldA) [Mass fraction] 95 % [facility] 05-25-2022 09:30-0500 Systolic blood pressure 96 mm[Hg] [facility] 05-25-2022 08:52-0500 Body temperature 98.5 [degF] [facility] 05-25-2022 08:30-0500 Inhaled oxygen flow rate 3 L/min [facility] 05-25-2022 06:40-0500 Body height 154.94 cm [facility] 05-25-2022 06:40-0500 Body mass index (BMI) [Ratio] 44.1 kg/m2 [facility] 05-25-2022 06:40-0500 Body weight 106 kg [facility] Encounters Encounter Date Encounter Type Care Provider Facility Start: 01-16-2025 ambulatory Chalon Juan Facility:[facility] Start: 01-16-2025 Non-patient / Non-visit Misael Moore DO -[facility] Start: 01-16-2025 End: 01-16-2025 Admission to same day surgery center Misael Moore DO -Endoscopy Work Phone: Start: 01-16-2025 End: 01-16-2025 ambulatory Coral Martinez MD Work Phone: -Endoscopy Start: 12-12-2024 ambulatory Coral Martinez Facility:[facility] Start: 12-12-2024 Non-patient / Non-visit Misael Moore DO -[facility] Start: 12-12-2024 End: 12-12-2024 Admission to same day surgery center Misaelhubert Moore DO -Endoscopy Work Phone: Start: 12-12-2024 End: 12-12-2024 ambulatory Coral Martinez MD Work Phone: -Endoscopy Start: 11-13-2024 End: 11-13-2024 ambulatory Coral Martinez MD Work Phone: -[facility] Start: 11-13-2024 End: 11-13-[address] Clarice Liriano MD -[facility] Work Phone: Start: 11-13-2024 End: 11-13-2024 ambulatory Chalon Juan Facility:[facility] Start: 10-20-2024 End: 10-20-2024 ambulatory Coral Martinez MD Work Phone: [facility] Work Phone: Start: 10-20-2024 End: 10-20-2024 Patient encounter procedure Sheila BAILEY -[facility] Work Phone: Start: 10-20-2024 End: 10-20-2024 ambulatory Chalon Juan Facility:[facility] Start: 10-17-2024 End: 10-17-2024 Patient encounter procedure Sheila BAILEY -[facility] Work Phone: Start: 10-17-2024 End: 10-17-2024 ambulatory Jennifer Moran IN SERVICE EDUCATION TEACHER-C Work Phone: [facility] Work Phone: Start: 10-17-2024 End: 10-17-2024 ambulatory Chalon Juan Facility:[facility] Start: 10-14-2024 End: 10-14-2024 Emergency department patient visit Jennifer Moran NP-C Work Phone: -Emergency Department Work Phone: Start: 09-26-2024 End: 09-26-[address] Clarice Liriano MD -Ultrasound [facility] Work Phone: Start: 09-26-2024 End: 09-26-2024 ambulatory Chalon Juan Facility:[facility] Start: 09-13-2024 End: 09-13-2024 ambulatory Jennifer Moran IN SERVICE EDUCATION TEACHER-C Work Phone: [facility] Work Phone: Start: 09-13-2024 End: 09-13-[address] [facility] Start: 09-13-2024 End: 09-13-2024 ambulatory Chalon Juan Facility:[facility] Start: 07-22-2024 End: 07-22-2024 ambulatory Jennifer Moran IN SERVICE EDUCATION TEACHER-C Work Phone: [facility] Work Phone: Start: 07-22-2024 End: 07-22-[address] Coral Martinez MD -Laboratory Work Phone: Start: 07-22-2024 End: 07-22-2024 ambulatory Coral Martinez Facility:[facility] Start: 06-21-2024 End: 06-21-[address] [facility] Start: 06-21-2024 End: 06-21-2024 ambulatory Jennifer Moran NP Facility:[facility] Start: 06-12-2024 End: 06-13-2024 ambulatory JENNIFER ECKERT [facility] Start: 03-21-2024 End: 03-21-2024 ambulatory Clarice Liriano Facility:[facility] Start: 02-09-2024 End: 02-10-2024 ambulatory JENNIFER ECKERT [facility] Start: 01-06-2024 End: 01-06-2024 [facility] Start: 12-01-2023 End: 12-01-2023 ambulatory JENNIFER ECKERT [facility] Start: 07-15-2023 End: 07-15-2023 ambulatory [facility] Start: 01-19-2023 End: 01-19-[address] CLARICE LIRIANO [facility] Start: 05-25-2022 End: 05-25-2022 Admission to same day surgery center [facility] Start: 05-19-2022 End: 05-19-2022 ambulatory [facility] Work Phone: Start: 05-19-2022 End: 05-19-2022 Patient encounter procedure [facility] Start: 02-19-2022 End: 02-20-[address] CLARICE LIRIANO MD. Facility:[facility] Start: 02-19-2022 End: 02-19-[address] CLARICE LIRIANO MD [facility] Procedures Date Procedure Procedure Detail Performing Clinician Start: 01-16-2025 Colonoscopy Coral brannon MD Work Phone: Start: 12-12-2024 Colonoscopy Coral brannon MD Work Phone: Start: 10-14-2024 End: 10-14-2024 Iadna-dna/rna gi pthgn multiplex probe tq 6-11 Jennifer Moran IN SERVICE EDUCATION TEACHER-C Work Phone: Start: 10-14-2024 Computed tomography of abdomen and pelvis with intravenous contrast Jennifer Moran IN SERVICE EDUCATION TEACHER-C Work Phone: Start: 10-14-2024 Estimated creatinine clearance Jennifer Moran IN SERVICE EDUCATION TEACHER-C Work Phone: Start: 10-14-2024 Clostridium difficil e detection Jennifer Moran IN SERVICE EDUCATION TEACHER-C Work Phone: Start: 10-14-2024 Nucleic acid assay Jake Moran IN SERVICE EDUCATION TEACHER-C Work Phone: Start: 09-26-2024 Ultrasonography of abdomen Jennifer Moran IN SERVICE EDUCATION TEACHER-C Work Phone: Start: 07-22-2024 Vitamin D, 25-hydrox y measurement Jennifer Moran IN SERVICE EDUCATION TEACHER-C Work Phone: Comment on above: Vitamin D StatusDefi ciency: <20 ng/mL (50nmol/L)Insufficiency: 20-30 ng/mL (50-75 nmol/L)Sufficiency: 30-100 ng/mL (75-250 nmol/L)Toxicity: >100 ng/mL (>250 nmol/L) Start: 06-21-2024 Measurement of renal function Jennifer Moran IN SERVICE EDUCATION TEACHER-C Work Phone: Comment on above: GFR Calc Start: 05-25-2022 Laparoscopic salpingectomy Plan of Treatment Date Care Activity Detail Author Start: 01-16-2025 Patient discharge [facility] Start: 12-12-2024 Colonoscopy flx dx w/collj spec when pfrmd DIAGNOSTIC COLONOSCOPY [facility] Start: 12-12-2024 Patient discharge [facility] Start: 10-20-[address] [facility] Start: 10-14-2024 [facility] Start: 10-14-[address] [facility] Start: 05-25-2022 Introduction of urin pb catheter [facility] Start: 05-25-2022 Patient discharge [facility] Start: 05-25-2022 Ambulation therapy management [facility] Start: 05-25-2022 Continuous pulse oximetry [facility] Start: 05-25-2022 Elevation of head of bed [facility] Start: 05-25-2022 Incentive spirometry [facility] Start: 05-25-2022 Measuring intake and output [facility] Start: 05-25-2022 Notification of physician [facility] Start: 05-25-2022 End: 05-25-2022 Oxygen therapy [facility] Start: 05-25-2022 Patient education [facility] Start: 05-25-2022 Taking patient vital signs [facility] Start: 05-25-2022 Wound care [facility] Start: 05-25-2022 [facility] CBC W Auto Different ial panel - Blood [facility] Patient Education ED Diarrhea, U nknown Cause [facility] Work Phone: Patient referral [facility] Work Phone: Protein measurement [facility] Payers Date Payer Category Payer Self-pay 2022 Unknown [id number] 2022 Unknown [id number] 1980 Unknown [id number] 2.16.8 [id number] 1980 Unknown [id number] 2.16.8 40.1.686258.3.579.2.651 1980 Unknown [id number] 2.16.8 40.1.154431.3.579.2.651 1980 Unknown [id number] 2.16.8 40.1.145432.3.579.2.651 1980 Unknown [id number] 2.16.8 40.1.768241.3.579.2.651 1980 Unknown [id number] 2.16.8 40.1.181574.3.579.2.651 Unknown [id number] Unknown [id number] 2.16.8 40.1.188094.3.579.2.462 Unknown [id number] 2.16.8 40.1.459256.3.579.2.462 Unknown [id number] 2.16.8 40.1.371213.3.579.2.462 Unknown [id number] 2.16.8 40.1.960924.3.579.2.462 Unknown [id number] 2.16.8 40.1.687293.3.579.2.462 Unknown [id number] 2.16.8 40.1.156878.3.579.2.462 Unknown [id number] 2.16.8 40.1.591111.3.579.2.462 Unknown [id number] 2.16.8 40.1.359234.3.579.2.462 Unknown [id number] 2.16.8 40.1.101026.3.579.2.462 Unknown [id number] 2.16.8 40.1.490442.3.579.2.462 Unknown [id number] 2.16.8 40.1.218522.3.579.2.462 Unknown [id number] 2.16.8 40.1.165171.3.579.2.462 Unknown [id number] 2.16.8 40.1.637132.3.579.2.462 Unknown [id number] 2.16.8 40.1.576542.3.579.2.462 Social History Date Type Detail Facility Tobacco smoking status [facility] Start: 05-19-2022 Tobacco smoking stat [facility] Unknown if ever smoked [facility] Start: 1980 Sex Assigned At Female [facility] Start: 05-19-2022 End: 01-11-2025 Tobacco smoking status NHIS Ex-smoker (finding) [facility] Start: 07-29-2024 Sex Female (finding) [facility] Not [facility] Goals Date Patient Goal Desired Activity /State Mental Status Date Assessment Result Facility 01-16-2025 Cognitive function Level Of Consciousness Drowsy [facility] Work Phone: 01-16-2025 Cognitive function Voice/Name [facility] Work Phone: 12-12-2024 Cognitive function Voice/Name [facility] Work Phone: 05-25-2022 Cognitive function Voice/Name [facility] Work Phone: Clinical Notes 10-14-2024 to 01-16-2025 Note Date & Type Note Facility 01-16-2025 Consult note [facility] 01-16-2025 Procedure note [facility] 01-16-2025 Procedure note [facility] 01-16-2025 History and physi lupe note [facility] 01-16-2025 Note [facility] Medical Records Department [address] [place] [address] History Physical Exam 01/16/25 0638 MR#: [id number] Acct: [id number] Name: NGOC KAUFFMAN Rep #: [id number] : 1980 44 From: Misael Friend DO PCP: Dr. Coral Martinez MD Status:[place] [facility] Location: [place] [address] HPI - General General Date of Admission: 01/16/25 Date of Service: 01/16/25 Chief Complaint: Lower GI bleed HPI Narrative NGOC KAUFFMAN, is a 44 F who presents with the Chief Complaint: bleeding with bowel movement [facility] ED 10.14.24 with abdominal pain and bloody [...] Last colonoscopy was in 2021 with diverticula. [facility] Medical History Sleep apnea CPAP (continuous positive airway pressure) dependence Fatty liver Anxiety Depression Thyroid disease Murmur [...] duloxetine 60 mg capsule,delayed 60 mg PO QHS 05/19/22 01/16/25 04: 30 History release (Cymbalta) ferrous sulfate 28 mg [...] mg tablet 20 mg PO TH 05/19/22 01/11/25 His tory multivitamin 1 tab PO DAILY 05/19/22 Unknown Hi story pantoprazole 40 mg tablet,delayed 40 mg PO DAILY 05/19/22 01/16/25 04:30 History release prednisone 10 mg tablet 10 mg PO PRN PRN RHEUMATOID Unknown History ARTHRITIS ondansetron 4 mg disintegrating 4 mg PO Q8H PRN PRN Nausea 3 days 10/14/24 Unknown Rx tablet #10 tabs tirzepatide (weight loss) 5 mg/0.5 10 mg subcut QWEEK 10/17/2412/10 History mL subcutaneous pen injector (Zepbound) levothyroxine 137 mcg tablet 137 mcg PO DAILY 12/11/24 01/16/25 04:30 History (Synthroid) linaclotide 290 mcg capsule 290 mcg PO DAILY PRN ABD DISCOMFOR T 12/11/24 Unknown History (Linzess) prazosin 1 mg capsule 1 mg PO QHS 12/11/24 Unknown Histo ry peg 3350-electrolytes 236 240 ml PO Q10M #4,000 mL 12/12/24 Unknown Rx gram-22.74 gram-6.74 gram-5.86 gram solution (Golytely) aspirin 81 mg capsule 81 mg PO DAILY 01/11/25 Unknown Hi story cetirizine 10 mg tablet 10 mg PO DAILY 01/11/25 Unknown Hi story duloxetine 30 mg capsule,delayed 30 mg PO 0800 01/11/25 Unknown His tory release Allergy/AdvReac Type Severity Reaction Status Date / Time amoxicillin AdvReac Other Verified 01/16/25 05:54 Surgical History H/O bilateral salpingectomy H/O sinus surgery Myringotomy tube status Hx of lymph node biopsy Hx of tonsillectomy Social History household members: spouse housing: house Smoking Status: Former smoker ROS Constitutional Constitutional: Denies fatigue, fever(s), poor appetite, weight gain or weight loss Gastrointestinal Gastrointestinal: Denies belching, bloating, change in bowel habits, change in stool charact (more content not included)... [facility] 01-16-2025 Consult note [facility] 12-12-2024 Consult note [facility] 12-12-2024 Procedure note [facility] 12-12-2024 Procedure note [facility] 12-12-2024 Consult note [facility] 12-12-2024 History and physi lupe note [facility] 12-12-2024 Note [facility] Medical Records Department [address] [place] [address] History Physical Exam 12/12/24 0640 MR#: [id number] Acct: [id number] Name: NGOC KAUFFMAN Rep #: [id number] : 1980 44 From: Misael Moore DO PCP: Dr. Coral Martinez MD Status:[facility] Location: [place] [address] HPI - General General Date of Admission: 12/12/24 Date of Service: 12/12/24 Chief Complaint: Lower GI bleed HPI Narrative NGOC KAUFFMAN, is a 44 F who presents with the Chief Complaint: bleeding with bowel movement [facility] ED 10.14.24 with abdominal pain and bloody [...] Last colonoscopy was in 2021 with diverticula. [facility] Medical History Fatty liver Anxiety Depression Thyroid [...] Rate 75 Re (more content not included)... [facility] 10-17-2024 Evaluation note Diagnosis Onset Date Resolution Bright red blood per rectum acute October 17, 2024 6:55am Diarrhea acute October 17 6:55am [facility] Work Phone: 1(200) 281-103306-10-2025 Evaluation note* Diagnosis Onset Date Resolution Status Admit Date Bright red blood per rectum acute October 17, 2024 6:55am Diarrhea acute October 17 6:55am Bright red blood per rectum acute December 12, 2024 5:21am Diarrhea acute December 12 5:21am [facility] Work Phone: 1(616) 627-893406-10-2025 Evaluation note* Diagnosis Onset Date Resolution Status Admit Date Bright red blood per rectum acute October 17, 2024 6:55am Diarrhea acute October 17 6:55am Bright red blood per rectum acute December 12, 2024 5:21am Diarrhea acute December 12 5:21am Bright red blood per rectum acute January 16, 2025 5:24am Diarrhea acute January 16, 2025 5:24am [facility] Work Phone: 1(712) 337-119706-07-2025 Discharge summary [facility] Medical Records Department [address] [place] [address] Emergency Department Summary 10/14/24 MR#: [id number] Acct: [id number] Name: NGOC KAUFFMAN Rep #:[id number] : 1980 44 From: Sam Mcfarland PCP: Dr. Coral Martinez MD Status:REG ER Location: ED HPI History of Present Illness Chief Complaint: GI Bleed [facility] Medical History Wears contact lenses Wears [...] History obtained from others: none Consults: none [facility] Narrative: The patient was initially tachycardic [...] Discharge home This note was generated with CabbyGo dictation software. It may contain incorrect words, [...] 84.9 H Lymph % (Auto) 7.8 L Fleming % (Auto) 6.3 Eos % (Auto) 0.2 [...] Clarity Cloudy Urine pH 5.0 Ur Specific [place] 1.030 Urine Protein 30 H Urine Glucose [...] abscess, ascites or free air. Reading Location: [facility] Discharge Plan Triage Chief Complaint: GI [...] MD [Primary Care Provider] - Print Language: Khmer What to do if you have Problems For any increased pain, shortness of breath, bleeding, nausea or vomiting, chestpain, or any unexpected problems, contact your Primary Care Provider. Call [facility] ([phone]) or report tothe closest Emergency Room. Call 911 if necessary. 10/14/242151 Cosigner Signature (if applicable): CC: Dr. Coral Martinez MD ~ Signed [facility]06-07-2025 Radiology Diagnostic study note [facility] Imaging Services [address] [place], [place] [id number] Abdomen/Pelvis W IV Cont ONLY MR#: [id number] Acct: [id number] Name: NGOC KAUFFMAN Rep #: [id number] : 1980 F 44 From: Serena Singh MD PCP: Dr. Coral Martinez MD Status: REG ER Study:Abdomen/Pelvis W IV Cont ONLY Date of E xam: 10/14/24 Exam# [id number] Ordering Dr: Mara Combs DO PROCEDURE: ABDOMEN/PELVIS [...] abscess, ascites or free air. Reading Location: [facility] CC: Dr. Coral Martinez MD; DO Erasmo Dominique [employer] Network Engineer: Signed [facility]06-07-2025 Discharge summary Author Sam Combs [facility] Note Date/Time October 14, 2024 9:52p m [facility] Medical Records Department [address] [place] [address] Emergency Department Summary 10/14/24 MR#: [id number] Acct: [id number] Name: NGOC KAUFFMAN Rep #:[id number] : 1980 44 From: Sam Mcfarland PCP: Dr. Coral Martinez MD Status:REG ER Location: ED HPI History of Present Illness Chief Complaint: GI Bleed [facility] Medical History Wears contact lenses Wears [...] reviewed, Vital signs reviewed Constitutional: please see [facility] HENT: MMM Eyes: Pupils equal round and [...] History obtained from others: none Consults: none [facility] Narrative: The patient was initially tachycardic [...] Discharge home This note was generated with CabbyGo dictation software. It may contain incorrect words, [...] 84.9 H Lymph % (Auto) 7.8 L Fleming % (Auto) 6.3 Eos % (Auto) 0.2 [...] Clarity Cloudy Urine pH 5.0 Ur Specific [place] 1.030 Urine Protein 30 H Urine Glucose [...] abscess, ascites or free air. Reading Location: [id number] Discharge Plan Triage Chief Complaint: GI Bleed [...] MD [Primary Care Provider] - Print Language: Khmer What to do if you have Problems For any increased pain, shortness of breath, bleeding, nausea or vomiting, chestpain, or any unexpected problems, contact your Primary Care Provider. Call [facility] ([phone]) or report to the closest Emergency Room. Call 911 if necessary. [id number]/14/[id number] <Electronically signed by Sam Combs DO> Cosigner Signature (if applicable): CC: Dr. Coral Martinez MD ~ Signed [facility] Work Phone: Consult note Author Andrew Cassidy [facility] Note Date/Time December 12, 2024 6:4 5am [facility] Medical Records Department [address] [place] [address] Pre-Anesthesia Evaluation 12/12/2444 MR#: [id number] Acct: [id number] Name: NGOC KAUFFMAN Rep #:[id number] : 1980 44 From: Andrew ZAMUDIO PCP: Dr. 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 Female Yes 12/11/24 08:24 HX of Motion [...] 12/12/24 05:59 Respiratory Assessment Respiratory Assessment - plastic welding machine operator: Respiratory Tract Infection 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 Hx Respiratory Tract Infection No 12/11/24 08:24 STOP Sleep Apnea STOP Sleep Apnea - plastic welding machine operator: STOP Sleep Apnea - plastic welding machine operator Hx Hypertension No 12/11/24 08:24 Hx Sleep [...] 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: Tobacco Use History - plastic welding 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 operator Tobacco Use Smoking Status Former smoker 12/11/24 08:24 Hx Tobacco Use No 12/11/24 08:24 Years Smoking Packs Smoked per Day Smoking Cessation Date was Yes - quit smoking within 15 12/11/24 08:24 within the last 15 years years Hx Smoking Cessation Date Hx Smoking Cessation Counseling Hematologic Medial History Hematologic 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: 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 Medical Hx - information officer Hx of Blood Transfusion No 12/11/24 08:24 [...] 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: /Reproductive Hx- plastic welding machine operator Hx Now No 12/11/24 08:24 Gestational Age [...] CRNA Cosigner Signature: Date CC: ~ Signed [facility] Work Phone: Consult note Author Andrew Cassidy [facility] Note Date/Time December 12, 2024 7:5 2am [facility] Medical Records Department [address] [place] [address] Anesthesia Postop Eval I 12/12/2407 MR#: [id number] Acct: [id number] Name: NGOC KAUFFMAN Rep #:[id number] : 1980 44 From: Andrew ZAMUDIO PCP: Dr. Coral Martinez MD Status:REG SD C Y Race: C Location: [place] [address] Anesthesia: Postop Eval I Current Vital Signs Temperature: 97 F Pulse Rate: 75 Blood Pressure: 97/54 Respiratory Rate: 16 Pulse Ox: 100 Assessment Airway patent: Yes Spontaneous unlabored respirations: Yes nausea: No Vomiting: No Anesthesia Complication: No Fluid Hydration Crystalloid volume administer (ml): 100 Total IV fluid infused: 100 Progress Note Anesthesia document: Postop Eval 1 completed: Yes 12/12/24 0707 <Electronically signed by Andrew Cassidy CRNA> Date _ Andrewmir LuzKhanh COOLING PIPE INSPECTOR Cosigner Signature: Date CC: ~ Signed [facility] Work Phone: Consult note Author Junior Núñez [facility] Note Date/Time January 16, 2025 6:31am [facility] Medical Records Department [address] [facility] [place] [address] Pre-Anesthesia Evaluation 01/16/25 0624 MR#: [id number] Acct: [id number] Name: NGOC KAUFFMAN Rep #:[id number] : 1980 44 From: Junior Núñez MD PCP: Dr. Coral Martinez MD Status:REG SD C Y Race: C Location: [place] [address] ASA Classification* ASA Classification ASA Classification: 3 Assessment & Plan Anesthesia* Anesthesia Assessment Anesthesia [...] risk assessments. Anesthesia Type Anesthesia Type: MAC History Source History Obtained from:: Patient and Chart Anesthesia Focused Assessment* Temperature: 98.4 F Pulse Rate: 72 Blood Pressure: 96/51 Respiratory Rate: 16 Pulse Ox: 97 Oxygen Delivery Method: Room Air Airway Assessment Mouth opens: >3 cm Mallampati Score: IV Teeth Condition: Missing (Patient is missing a left lower molar. 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 When Was Last Pacemaker Check QUESTION #4 FULL TEXT: You/Your Family Experience fever (hyperthermia) with Anesthesia Last Oral Intake Last Oral intake: Last Oral Intake NPO since 04:30 01/16/25 05:55 Meds taken in AM with sips of Yes 01/16/25 05:55 water? 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 Female Yes 01/11/25 13:51 HX of Motion Sickness No 01/11/25 13:51 HX of N/V After Surgery No 01/11/25 13:51 Non-Smoker Yes 01/11/25 13:51 Duration of Surgery greater No 01/11/25 13:51 than 60 minutes Number of Risk Factors 2 01/11/25 13:51 PONV Score Moderate Risk 01/11/25 13:51 Height & Weight Height & Weight: Anesthesia: Height & Weight Height 5 ft 1 in 01/16/25 05:55 Weight: 86 kg 01/16/25 05:55 Body Mass Index (BMI) 35.8 01/16/25 05:55 Respiratory Assessment Respiratory Assessment - plastic welding machine operator: Respiratory Tract Infection 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 Hx Respiratory Tract Infection No 01/11/25 13:51 STOP Sleep Apnea STOP Sleep Apnea - plastic welding machine operator: STOP Sleep Apnea - plastic welding machine operator Hx Hypertension No 01/11/25 13:51 Hx Sleep Apnea Yes 01/11/25 13:51 CPAP Yes 01/11/25 13:51 BIPAP No 01/11/25 13:51 Do you snore loudly (louder than talking or can be heard Do you often feel tired/ fatigued/ sleepy during daytime? Has anyone observed you stop breathing during sleep? STOP Results Positive 01/11/25 13:51 QUESTION #5 FULL TEXT : Do you snore loudly (louder than talking or can be heard through closed doors)? 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 Specify any problems Hx of Preganancy in last 3 No 01/11/25 13:51 Months Nurse Filling Out Transfusion VCHRISTIN 01/11/25 13:51 & Questions: Date: 01/11/25 01/11/25 13:51 Time: 13:52 01/11/25 13:51 Patient unable to answer at this time (ie. 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: /Reproductive Hx- plastic welding machine operator Hx Now No 01/11/25 13:51 Gestational Age (in weeks): EDC: Hx Hx Para Hx Section SAB No 01/11/25 13:51 Active Medications Active Medications: Current Medications Generic Name Dose Route Start Last Admin Trade Name Freq PRN Reason Stop Dose Admin Lactated Ringer's 1,000 mls @ 15 mls/hr 01/16/25 05:45 01/16/25 05:58 IV 15 mls/hr .Q48H DALJIT Administration PFSH Medical History Sleep apnea CPAP (continuous positive airway pressure) dependence Fatty liver Anxiety Depression Thyroid disease Murmur [...] duloxetine 60 mg capsule,delayed 60 mg PO QHS 05/19/22 01/16/25 04:30 History release (Cymbalta) ferrous sulfate 28 mg [...] mg tablet 20 mg PO TH 05/19/22 01/11/25 History multivitamin 1 tab PO DAILY 05/19/22 Unkn own History pantoprazole 40 mg tablet,delayed 40 mg PO DAILY 05/1901/16/25 04:30 History release prednisone 10 mg tablet 10 mg PO PRN PRN RHEUMATOID 05/19/22 Unknown History ARTHRITIS ondansetron 4 mg disintegrating 4 mg PO Q8H PRN PRN Na usea 3 days 10/14/24 Unknown Rx tablet #10 tabs tirzepatide (weight loss) 5 mg/0.5 10 mg subcut QWEEK 10/17/24 01/06/25 History mL subcutaneous pen injector (Zepbound) levothyroxine 137 mcg tablet 137 mcg PO DAILY 12/11/24 01/16/25 04:30 History (Synthroid) linaclotide 290 mcg capsule 290 mcg PO DAILY PRN ABD D ISCOMFORT 12/11/24 Unknown History (Linzess) prazosin 1 mg capsule 1 mg PO QHS 12/11/24 Unknown History peg 3350-electrolytes 236 240 ml PO Q10M #4,000 mL 10/01 Unknown Rx gram-22.74 gram-6.74 gram-5.86 gram solution (Golytely) aspirin 81 mg capsule 81 mg PO DAILY 01/11/25 Unkn own History cetirizine 10 mg tablet 10 mg PO DAILY 01/11/25 Unkn own History duloxetine 30 mg capsule,delayed 30 mg PO 0800 5 Unknown History release Allergy/AdvReac Type Severity Reaction Status Date / Time amoxicillin AdvReac Other Verified 01/16/25 05:54 Surgical History H/O bilateral salpingectomy H/O sinus surgery Myringotomy tube status Hx of lymph node biopsy Hx of tonsillectomy Social History household members: spouse housing: house Smoking Status: Former smoker Review of Systems (Anesthesia) ROS Narrative System reviewed and no additional complaints, except as documented. Physical Exam Resp clear to auscultation bilaterally 01/16/25 0631 <Electronically signed by Junior altamirano MD> Date _ Junior Núñez MD Cosigner Signature: Date CC: ~ Signed [facility] Work Phone: Consult note Author Nomi Moses [facility] Note Date/Time January 16, 2025 7:22am [facility] Medical Records Department [address] [place] [address] Anesthesia Postop Eval I 01/16/25720 MR#: [id number] Acct: [id number] Name: NGOC KAUFFMAN Rep #:[id number] : 1980 44 From: Nomi Moses PCP: Dr. Coral Martinez MD Status:REG SD C Y Race: C Location: [place] [address] Anesthesia: Postop Eval I Current Vital Signs Temperature: 97.8 F Pulse Rate: 80 Blood Pressure: 101/54 Respiratory Rate: 16 Pulse Ox: 100 Oxygen Delivery Method: Room Air Assessment Airway patent: Yes Spontaneous unlabored respirations: Yes Mental status: Awake and Calm nausea: No Vomiting: No Anesthesia Complication: No Fluid Hydration Crystalloid volume administer (ml): 700 Total IV fluid infused: 700 Progress Note Anesthesia document: Postop Eval 1 completed: Yes 01/16/25721 <Electronically signed by Nomi Moses > Date _ Nomi Yost Signature: Date CC: ~ Signed [facility] Work Phone: Evaluation + Plan note No data available for this section [facility] Evaluation noteNo assessment information available [facility] Work Phone: Evaluation note* Diagnosis Onset Date Resolution Status Admit Date Bright red blood per rectum acute October 17, 2024 6:55am [facility] Work Phone: History and physical note Author Misael Moore [facility] Note Date/Time December 12, 2024 6:4 1am [facility] Medical Records Department [address] [place] [address] History & Physical Exam 12/12/24 0640 MR#: [id number] Acct: [id number] Name: NGOC KAUFFMAN Rep #:[id number] : 1980 44 From: Misael Moore DO PCP: Dr. Coral Martinez MD Status:REG SD C Location: [place] [address] HPI - General General Date of Admission: 12/12/24 Date of Service: 12/12/24 Chief Complaint: Lower GI bleed HPI Narrative NGOC KAUFFMAN, is a 44 F who presents with the Chief Complaint: bleeding with bowel movement [facility] ED 10.14.24 with abdominal pain and bloody [...] Last colonoscopy was in 2021 with diverticula. [facility] Medical History Fatty liver Anxiety Depression Thyroid [...] K62.5 - Hemorrhage of anus and rectum 12/12/24 0641 <Electronically signed by Misael Moore DO> Cosigner Signature (if applicable): CC: Dr. Coral Martinez MD; Misael Moore DO~ Signed [facility] Work Phone: History and physical note Author Misael Moore [facility] Note Date/Time January 16, 2025 6:40am [facility] Medical Records Department [address] [place] [address] History & Physical Exam 01/16/25 0638 MR#: [id number] Acct: [id number] Name: NGOC KAUFFMAN Rep #:[id number] : 1980 44 From: Misael Moore DO PCP: Dr. Coral Martinez MD Status:REG SD C Location: [place] [address] HPI - General General Date of Admission: 01/16/25 Date of Service: 01/16/25 Chief Complaint: Lower GI bleed HPI Narrative NGOC KAUFFMAN, is a 44 F who presents with the Chief Complaint: bleeding with bowel movement [facility] ED 6.7.25 with abdominal pain and bloody diarrhea. Hx [...] Last colonoscopy was in 2021 with diverticula. [facility] Medical History Sleep apnea CPAP (continuous positive airway pressure) dependence Fatty liver Anxiety Depression Thyroid disease Murmur [...] duloxetine 60 mg capsule,delayed 60 mg PO QHS 05/19/22 01/16/25 04:30 History release (Cymbalta) ferrous sulfate 28 mg [...] mg tablet 20 mg PO TH 05/19/22 01/11/25 History multivitamin 1 tab PO DAILY 05/19/22 Unkn own History pantoprazole 40 mg tablet,delayed 40 mg PO DAILY 05/1901/16/25 04:30 History release prednisone 10 mg tablet 10 mg PO PRN PRN RHEUMATOID 05/19/22 Unknown History ARTHRITIS ondansetron 4 mg disintegrating 4 mg PO Q8H PRN PRN Na usea 3 days 10/14/24 Unknown Rx tablet #10 tabs tirzepatide (weight loss) 5 mg/0.5 10 mg subcut QWEEK 10/17/24 01/06/25 History mL subcutaneous pen injector (Zepbound) levothyroxine 137 mcg tablet 137 mcg PO DAILY 12/11/24 01/16/25 04:30 History (Synthroid) linaclotide 290 mcg capsule 290 mcg PO DAILY PRN ABD D ISCOMFORT 12/11/24 Unknown History (Linzess) prazosin 1 mg capsule 1 mg PO QHS 12/11/24 Unknown History peg 3350-electrolytes 236 240 ml PO Q10M #4,000 mL 10/01 Unknown Rx gram-22.74 gram-6.74 gram-5.86 gram solution (Golytely) aspirin 81 mg capsule 81 mg PO DAILY 01/11/25 Unkn own History cetirizine 10 mg tablet 10 mg PO DAILY 01/11/25 Unkn own History duloxetine 30 mg capsule,delayed 30 mg PO 0800 5 Unknown History release Allergy/AdvReac Type Severity Reaction Status Date / Time amoxicillin AdvReac Other Verified 01/16/25 05:54 Surgical History H/O bilateral salpingectomy H/O sinus [...] changes Vital Signs Vital Signs Vital Signs: 01/16/25 05:55 01/16/25 05:55 01/16/25 06:31 Temperature 98.4 F 98.4 F Temperature Source Temporal Pulse Rate 72 72 Respiratory Rate 16 16 Respiratory Pattern Normal Blood Pressure 96/51 L 96/51 L Blood Pressure Mean 66 Blood Pressure Source Monitor Blood Pressure Position Sitting Blood Pressure Location Left Arm Pulse Ox 97 97 Oxygen Delivery Method Room Air Room Air Weight Weight: 189 lb 9.561 oz Body Mass Index (BMI) 35.8 Physical Exam Const alert, oriented x3, no apparent distress and healthy appearing General Appearance: cooperative GI normal to inspection, nondistended, normoactive bowel sounds, soft to palpation,non-tender and non-distended Percussion: normal to percussion Rectal Exam: deferred Assessment & Plan Assessment/Plan (1) Diarrhea: (2) Bright red blood per rectum: PLAN: (1) Bright red blood per rectum: Status: [...] K62.5 - Hemorrhage of anus and rectum 01/16/25 0640 <Electronically signed by Misael Moroe DO> Cosigner Signature (if applicable): CC: Dr. Coral Martinez MD; Misael Moore DO~ Signed [facility] Work Phone: Hospital Discharge instructions No data available for this section [facility] Hospital Discharge instructions Additional Instructions [facility] Work Phone: Hospital Discharge instructions Additional Instructions [...] care physician for further outpatient evaluation and management.[facility] Work Phone: Progress note No data available for this section [facility] Reason for referral (narrative)No reason for referral information [facility] Work Phone: Summary Purpose Family History No Family History Records FoundNo Family History Records Found No data available for this section No Family History Records FoundNo Family History Records Found Advance Directives No Advanced Directives Records Found Advance Directive Response Recorded Date/ Time Living Will No May 19 9:08am Power of Timing Machine Operator No May 19, 2022 9:08am Advance Directive Response Recorded Date/ Time Do you have a Healthcare Power of Timing Machine Operator? No October 14, 2024 5:51pm Advance Directive Response Recorded Date/ Time Do you have a Healthcare Power of Timing Machine Operator? No December 11, 2024 8:24am Do you have a Healthcare Power of Timing Machine Operator? No October 14, 2024 5:51pm Advance Directive Response Recorded Date/ Time Do you have a Healthcare Power of Timing Machine Operator? No December 11, 2024 8:24am Do you have a Healthcare Power of Timing Machine Operator? No January 11, 2025 1:51pm Do you have a Healthcare Power of Timing Machine Operator? 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 September 26, 2024 7: 17am gi bleed October 14, 2024 5:42p m ER FU BLEEDING October 17, 2024 6:55 am Reason for Visit Admit Date Bright red blood per rectum October 17 025 6:55am Chief Complaint Admit Date E-ORDER July 22, 2024 8:0 7am PAIN- COPY PCP September 13, 2024 7:05am 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 September 26, 2024 7: 17am gi bleed October 14, 2024 5:42p m ER FU BLEEDING October 17, 2024 6:55 am INT LABS October 17, 2024 7:47 am EORDER- STOOL October 20, 2024 7:18 am Reason for Visit Admit Date Bright red blood per rectum October 17 025 6:55am Diarrhea October 17, 2024 6:55 am Chief Complaint Admit Date E-ORDER July 22, 2024 8:0 7am PAIN- COPY PCP September 13, 2024 7:05am SKILLED NURSING DRUG THERAPY September 26, 2024 7: 17am gi bleed October 14, 2024 5:42p m ER FU BLEEDING October 17, 2024 6:55 am INT LABS October 17, 2024 7:47 am EORDER- STOOL October 20, 2024 7:18 am S/O- PAIN- COPY PCP November 13, 2024 7:17a m Chief Complaint Admit Date PAIN- COPY PCP September 13, 2024 7:05am SKILLED NURSING DRUG THERAPY September 26, 2024 7: 17am [...] 5:21am Diarrhea December 12, 2024 5:2 1am Chief Complaint Admit Date 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 September 26, 2024 7: 17am gi bleed October 14, 2024 5:42p m ER FU BLEEDING October 17, 2024 6:55 am INT LABS October 17, 2024 7:47 am EORDER- STOOL October 20, 2024 7:18 am S/O- PAIN- COPY PCP November 13, 2024 7:17a m Reason for Visit Admit Date Bright red blood per rectum October 17 025 6:55am Diarrhea October 17, 2024 6:55 am Bright red blood per rectum December 12, 2024 5:21am Diarrhea December 12, 2024 5:2 1am Bright red blood per rectum January 5:24am Diarrhea January 16, 2025 5:24am Additional Source Comments INFORMATION SOURCE (unrecogn ized section and content) DATE CREATED AUTHOR 01/31/2021 [facility] DATE CREATED AUTHOR AUTHOR'S ORGANIZ ATION 06/25/2022 [facility] ([place]) DATE CREATED AUTHOR AUTHOR'S ORGANIZ ATION 06/13/2024 [facility] DATE CREATED AUTHOR AUTHOR'S ORGANIZ ATION 01/16/2025 [facility] Care Team (unrecognized sect ion and content) Care Team Personnel Name: BRET LATIF V Position: Physician Med Service: Active Provider Member Role: Primary Care Physician Address: Address: [address] [place] [address], [place], [place] [address] Care Team Related Persons Name: LZI MAHONEY Address: Home [address] [place] [address] Care Teams (unrecognized sec tion and content) Team Status: Active Member Role Status Dates Jennifer Moran IN SERVICE EDUCATION TEACHER, IN SERVICE EDUCATION TEACHER-C Primary Care Provider Active Team Status: Inactive Member Role Status Dates Dr. Chemo Rodriguez MD Attending Provider, Referring Pr ovider Active Jennifer Moran IN SERVICE EDUCATION TEACHER, IN SERVICE EDUCATION TEACHER-C Primary Care Provider Active Team Status: Inactive Member Role Status Dates Jennifer Moran IN SERVICE EDUCATION TEACHER, IN SERVICE EDUCATION TEACHER-C Primary Care Provider Active Dr. Clarice Liriano MD Attending Provider, Referring Provider Active Team Status: Active Member Role Status Dates Coral Martinez MD Primary Care Provider Active Team Status: Inactive Member Role Status Dates Jennifer Moran IN SERVICE EDUCATION TEACHER, IN SERVICE EDUCATION TEACHER-C Primary Care Provider Active Start: June 21, [...] Provider Active St art: December 12, 2024 Team Status: Inactive Member Role/Relationship Status Melissa Martinez , MD Primary Care Provider Active St art: [...] Provider Active St art: December 12, 2024 Team Status: Inactive Member Role/Relationship Status Melissa Martinez MD Primary Care Provider Active St art: January 16, 2025 End: January 16, 2025 Coral Martinez MD Referring Provider Active Start : January 16, 2025 End: January 16, 2025 Dr. Misael Moore DO Attending Provider Active Start: January 16, 2025 End: January 16, 2025 Team Status: Active Member Role/Relationship Status Melissa Martinez MD Primary Care Provider Active St art: January 16, 2025 Coral Martinez MD Referring Provider Active Start : January 16, 2025 Dr. Misael Moore DO Attending Provider Active Start: January 16, 2025 Dr. Misael Moore DO Other Provider Active St art: January 16, 2025 Goals (unrecognized section and content) Goals may [...] BE BASED ON THE PRIMARY CLINICAL RECORDS. [facility] [employer] provides no warranty or guarantee of the accuracy or completeness of information in this document.
[2025-01-18 10:20] LABS: Hematocrit 37.7 % (37-47); Hemoglobin 12.4 g/dL (12.0-15.0); Immature Granulocytes Count 0.020 X10^3/uL (0.0-0.0); Mean Corp Hgb Conc 32.9 g/dL (32-36); Mean Corpuscular Volume 98.7 fL (81-99); Mean Platelet Vol. 10.0 fl (6.2-12.0); NRBC Flagged by Analyzer 0 % (0-5); Platelet Count 242 K/mm3 (150-450); RBC Distribution Width CV 13.6 % (11.6-14.6); RBC Distribution Width SD 49.7 fl (35.1-43.9); Red Blood Count 3.82 M/mm3 (4.2-5.4); White Blood Count 7.5 K/mm3 (4.4-11.0)
[2025-01-18 10:32] LABS: AST(SGOT) 20 U/L (<=31); Alanine Aminotransfer ALT/SGPT 22 U/L (<=34); Albumin, Serum 4.2 g/dL (3.5-5.0); Alkaline Phosphatase 54 U/L (35-104); Anion Gap 10 (5-15); BUN 6 mg/dL (4-19); BUN/Creat Ratio 8.8 RATIO (10-20); Calcium,Total 9.2 mg/dL (7.6-11.0); Carbon Dioxide 24.8 mmol/L (21.0-32.0); Chloride 104 mmol/L (98-108); Globulin 2.8 g/dL (2.2-4.2); Glucose 85 mg/dL (70-99); Potassium 4.1 mmol/L (3.3-5.1)
== END | disposition home or self-care (01) ==
LOC: MTLAB 07:03
PROVIDERS: PCP Family Medicine; Referring Provider Internal Medicine Rheumatology; Visit Provider Internal Medicine Rheumatology
DX: M06.4 Inflammatory polyarthropathy (principal); M79.7 Fibromyalgia; Z79.899 Other long term (current) drug therapy
CPT/HCPCS: 36415; 80053; 85025

== ENCOUNTER → 2025-01-23 | Outpatient (CLI) | payer BC, SELFPAY | END | disposition home or self-care (01) | LOC: MTLAB 12:56 | PROVIDERS: PCP Family Medicine; Referring Provider Family Medicine; Visit Provider Family Medicine | DX: Z00.00 Encounter for general adult medical examination without abnormal findings (principal); E03.9 Hypothyroidism, unspecified | CPT/HCPCS: 36415; 84439; 84443 ==

== ENCOUNTER → 2025-02-20 | Outpatient (CLI) | payer BC, SELFPAY ==
--- NOTE | 2025-02-20 07:19 | BI_ITS ---
EXAM: SCRN MAMM (CAD)W/ISABELL BILAT DATE: 02/20/2025 CLINICAL HISTORY: F, Age 44 y/o , SCREEN No family history. Burning sensation of the left breast. TECHNIQUE: Procedure Code: [id number] Modality: MG Procedure: SCRN MAMM (CAD)W/ISABELL BILAT COMPARISON: Prior exam(s) dated March 29, 2023.. FINDINGS: TISSUE DENSITY: There are scattered areas of fibroglandular density. Bilateral Breast Mammographic Findings: No significant masses, calcifications or other abnormalities are identified. Asymmetry of breast tissue were more breast tissue is seen in the upper-outer quadrant of the left breast as compared to the right side. Targeted sonographic correlation recommended. BI/SCRN MAMM (CAD)W/ISABELL BILAT IMPRESSION: Asymmetry of breast tissue were more breast tissue is seen in the upper-outer q uadrant left breast. Sonographic correlation recommended. OVERALL FINAL ASSESSMENT BI-RADS 0: INCOMPLETE - NEED ADDITIONAL IMAGING EVALUATION. RECOMMENDATION: Ultrasound Recommended Additional Recommendation none A letter with findings and recommendations will be mailed to the patient. Reading Location: [place] [address]
== END | disposition home or self-care (01) ==
PROVIDERS: PCP Family Medicine; Referring Provider Family Medicine; Visit Provider Family Medicine
DX: Z12.31 Encounter for screening mammogram for malignant neoplasm of breast (principal)
CPT/HCPCS: 77063; 77067

== ENCOUNTER → 2025-02-27 | Outpatient (CLI) | payer BC, SELFPAY ==
--- NOTE | 2025-02-27 12:24 | US_ITS ---
PROCEDURE: BREAST LIMITED UNILATERAL 02/27/2025 REASON FOR EXAM: F, Age 44 y/o , AB MAMM Abnormal screening mammogram COMPARISON: . TECHNIQUE: Procedure Code: USBRSTLIMIT Modality: US Procedure: BREAST LIMITED UNILATERAL FINDINGS: The upper lateral aspect of the left breast was examined with ultrasound. There is dense fibroglandular tissue. No sonographic abnormality is seen. This most likely represents asymmetry of breast tissue. US/Breast Limited Unilateral IMPRESSION: No sonographic abnormality is seen. BI-RADS 2: BENIGN RECOMMENDATION: Routine annual follow-up in 1 Year Reading Location: [place] [id number]
== END | disposition home or self-care (01) ==
LOC: OPUS 12:22
PROVIDERS: PCP Family Medicine; Referring Provider Family Medicine; Visit Provider Family Medicine
DX: R92.8 Other abnormal and inconclusive findings on diagnostic imaging of breast (principal)
CPT/HCPCS: 76642

== ENCOUNTER → 2025-04-11 | Outpatient (CLI) | payer BC, SELFPAY ==
--- OUTSIDE RECORDS SUMMARY | 2025-04-11 07:21 | XMS RPT_ITS | CCD ---
Author Organization [facility] Care Team Providers Care Assembly Inspector Helper Name Role Phone BRET LATIF DO, V [...] Consulting Unavailable JENNIFER MORAN CNP Admitting Unavailable ASUNCIONJENNIFER NUNN CNP Attending Unavailable ASUNCIONJENNIFER NUNN CNP Consulting Unavailable JENNIFER MORAN CNP Primary Care Unavailable PROVIDER, UNKNOWN Consulting Unavailable PROVIDER, UNKNOWN Consulting Unavailable Asuncion SOLDERER-CJennifer Primary Care Provider Deandra VELASCO, Dr. Sifuentes Attending Provider Dr. Clarice Liriano MD Referring Provider Coral Martinez MD Primary Care Provider [phone] Coral Martinez MD Attending Provider Coral Martinez MD Referring Provider [phone] Sam Combs DO Emergency Provider Sheila Kong Attending Provider Deandra VELASCO, Dr. Sifuentes Attending Provider Deandra VELASCO, Dr. Sifuentes Referring Provider Lauryn JOHN, Dr. Vargas Attending Provider Sheila Kong Referring Provider Juan VELASCO, Coral Primary Care Provider Juan VELASCO, Coral Referring Provider Oscar JOHN, Dr. Douglas Attending Provider Oscar JOHN, Dr. Douglas Other Provider Juan VELASCO, Coral Primary Care Provider Deandra VELASCO, Dr. Sifuentes Attending Provider Deandra VELASCO, Dr. Sifuentes Referring Provider Juan VELASCO, Coral Primary Care Physician Lauryn JOHN, Dr. Vargas Attending Physician Dr. Sam Combs DO Emergency Department Physi asher Sheila Kong Attending Physician Deandra VELASCO, Dr. Sifuentes Attending Physician Deandra VELASCO, Dr. Sifuentes Referring Provider Oscar JOHN, Dr. Douglas Attending Physician Oscar JOHN, Dr. Douglas Nurse Practitioner Juan VELASCO, Coral Attending Physician Juan, Moeon Attending Unavailable Juan, Chalon Primary Care Unavailable Juan, Chalon Referring Unavailable Juan, Chalon Attending Unavailable Juan, Chalon Primary Care Unavailable Juan, Chalon Referring Unavailable Juan, Chalon Referring Unavailable Juan, Chalon Attending Unavailable Juan, Chalon Primary Care Unavailable Asuncion SOLDERER, Jennifer Primary Care Unavailable Clarice Liriano Referring Unavailable Clarice Liriano Attending Unavailable Juan, Chalon Referring Unavailable Juan, Chalon Attending Unavailable Juan, Chalon Primary Care Unavailable Juan, Chalon Primary Care Unavailable Vellanki, Clarice Attending Unavailable Vellanki, Clarice Referring Unavailable Juan, Chalon Primary Care Unavailable Atanasov, Sheila Attending Unavailable Juan, Chalon Referring Unavailable Juan, Chalon Referring Unavailable Friend, Misael Consulting Unavailable Juan, Chalon Primary Care Unavailable Friend, Misael Attending Unavailable Juan, Chalon Referring Unavailable Friend, Misael Attending Unavailable Friend, Misael Consulting Unavailable Juan, Chalon Primary Care Unavailable LaurynSam Attending Unavailable Juan, Chalon Primary Care Unavailable Juan, Chalon Primary Care Unavailable Vellanki, Clarice Attending Unavailable Vellanki, Clarice Referring Unavailable Juan, Chalon Primary Care Unavailable Atanasov, Sheila Referring Unavailable Atanasov, Sheila Attending Unavailable Juan, Chalon Primary Care Unavailable Vellanki, Clarice Attending Unavailable Vellanki, Clarice Referring Unavailable Asuncion SOLDERER, [facility] Primary Care Unavailable Vellanki, Clarice Attending Unavailable Vellanki, Clarice Referring Unavailable Juan, Chalon Primary Care Unavailable Vellanki, Clarice Attending Unavailable Vellanki, Clarice Referring Unavailable Juan, Chalon Primary Care Unavailable Atanasov, Sheila Referring Unavailable Atanasov, Sheila Attending Unavailable Juan, Chalon Referring Unavailable Friend, Misael Attending Unavailable Juan, Chalon Primary Care Unavailable Juan, Chalon Primary Care Unavailable Friend, Misael Attending Unavailable Juan, Chalon Referring Unavailable Allergies Allergy Classification Reported Allergen(s) Allergy Type Date of Onset Reaction(s) Facility (14 sources) Amoxicillin; Translations: [amoxicillin] Drug Allergy 05-19-2022 [facility] Comment on above: YEAST INFECTIONS (1 source) Amoxicillin Drug Allergy [facility] Repository (1 source) Amoxicillin Drug Allergy 01-16-2025 [facility] Repository Medications Current Medications Medication Drug Class(es) Dates Sig (Normalized) Sig (Original) acetaminophen 325 mg oral tablet (2 sources) Start: 07-21-2011 Tylenol 325 mg oral tablet Dose : 650 mg = 2 tab(s), Oral, q4h, PRN for pain, # 120 tab(s), 0 Refill(s) Start Date: 07/21/11 Status: Ordered [id number] 200 actuat albuterol 0.09 mg/actuat metered dose inhaler (12 sources) beta2-Adrenergic Agonist Start: 05-19-2022 Start: 05-19-2022 Albuterol Sulf ate Active 2 INH INHALATION NEEDED May 19, 2022 12:00am aspirin 81 mg oral tablet (3 sources) Platelet Aggregation Inhibitor, Nonsteroidal Anti-inflammatory Drug Start: 01-11-2025 take 1 capsule by mouth once daily atorvastatin 10 mg oral tablet (12 sources) HMG-CoA Reductase Inhibitor Start: 05-19-2022 take 1 tablet by mouth at bedtime cetirizine hydrochloride 10 mg oral tablet (3 sources) Histamine-1 Receptor Antagonist Start: 01-11-2025 take 1 tablet by mouth once daily citalopram 20 mg oral tablet (2 sources) Serotonin Reuptake Inhibitor Start: 07-17-2011 citalopram 20 mg oral tablet Dose : 20 mg = 1 tab(s), PO, Daily, # 30 tab(s), 0 Refill(s) Start Date: 07/17/11 Status: Ordered DULoxetine 30 mg delayed release oral capsule (15 sources) Serotonin and Norepinephrine Reuptake Inhibitor Start: 01-11-2025 Start: 05-19-2022 take 1 capsule by mouth at bed time ferrous sulfate 28 mg oral tablet (1 source) Start: 05-19-2022 take 28 mg by mouth once daily Ferrous Sulfate Active 28 MG PO DAILY May 19, 2022 12:00am Ferrous Sulfate 28 mg iron Tablet (11 sources) Start: 05-19-2022 take 1 tablet by mouth once daily Start: 05-19-2022 take 1 tablet by mouth once da [facility] Ferrous Sulfate 28 mg iron Tablet Active 28 mg PO DAILY May 19, 2022 1:00am 30 actuat fluticasone furoat e 0.2 mg/actuat / vilanterol 0.025 mg/actuat dry powder inhaler (12 sources) Corticosteroid, beta2-Adrenergic Agonist Start: 05-19-2022 Start: 05-19-2022 Fluticasone Fu roate-Vilanterol Active 1 INH INHALATION DAILY May 19, 2022 12:00am folic acid 1 mg oral tablet (12 sources) Start: 05-19-2022 take 2 tablets by mouth once d aily Start: 05-19-2022 take 2 tablets by mo [facility] twice daily Folic Acid 1 mg tablet Active 2 mg PO TWICE A DAY May 19, 2022 1:00am Start: 05-19-2022 take 2 mg by mouth twice daily Folic Acid Active 2 MG PO TWICE A DAY May 19, 2022 12:00am hydroxychloroquine sulfate 200 mg oral tablet (12 sources) Antimalarial, Antirheumatic Agent Start: 05-19-2022 take 1 tablet by mouth twice daily levothyroxine sodium 0.137 mg oral tablet (4 sources) l-Thyroxine Start: 12-11-2024 take 1 tablet by mouth once daily linaclotide 0.29 mg oral capsule (4 sources) Guanylate Cyclase-C Agonist Start: 12-11-2024 take 1 capsule by mouth once daily as needed methotrexate 2.5 mg oral tablet (12 sources) Folate Analog Metabolic Inhibitor Start: 05-19-2022 Start: 05-19-2022 Methotrexate S odium Active 20 MG PO TH May 19, 2022 12:00am Multivitamin preparation (1 source) Start: 05-19-2022 take 1 tablet by mouth once daily Multivitamin Active 1 TABLET PO DAILY May 19, 2022 12:00am Multivitamin Tablet (11 sources) Start: 05-19-2022 Start: 05-19-2022 Multivitamin T ablet Active 1 {tbl} PO DAILY May 19, 2022 1:00am ondansetron 4 mg disintegrating oral tablet (18 sources) Serotonin-3 Receptor Antagonist Start: 10-14-2024 End: 12-11-2024 take 1 tablet by mouth every eight hours as needed for nausea pantoprazole 40 mg delayed release oral tablet (12 sources) Proton Pump Inhibitor Start: 05-19-2022 take 1 tablet by mouth once daily polyethylene glycol 3350 [id number] mg / potassium chloride 2970 mg / sodium bicarbonate 6740 mg / sodium chloride 5860 mg / sodium sulfate 19020 mg powder for oral solution (3 sources) Osmotic Laxative Start: 12-12-2024 prazosin 1 mg oral capsule (4 sources) alpha-Adrenergic Winter Start: 12-11-2024 take 1 capsule by mouth at bedtime predniSONE 10 mg oral tablet (12 sources) Start: 05-19-2022 Tirzepatide (Weight Loss) (8 sources) Start: 10-17-2024 Start: 10-17-2024 Tirzepatide (W eight Loss) (Zepbound) 5 mg/0.5 mL pen injector [...] Status: Ordered leucovorin 15 mg oral tablet (12 sources) Folate Analog Start: 05-19-2022 take 1 tablet by mouth once Start: 05-19-2022 Leucovorin Lupe cium 15 mg [...] (primary) hypertension] Onset: 5 Chronic Gastrointestinal hemorrhage (20 sources) Gastrointestinal hemorrhage; Translations: [Hemorrhage of anus and rectum] Onset: 5 10-17-2024 Episodic Other aftercare (1 source) Long-term current use of drug therapy; Translations: [Other snf (current) drug therapy] Episodic Other connective tissue disease (1 source) Fibromyalgia; Translations: [Fibromyalgia] Episodic Other gastrointestinal disorders (1 source) 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; 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] Chronic Other gastrointestinal disorders (20 sources) Diarrhea; Translations: [Diarrhea, unspecified] 10-17-2024 Episodic Other gastrointestinal disorders (1 source) Diarrhea, unspecified; Translations: [Diarrhea, unspecified] Onset: 5 Episodic Other screening for suspected conditions (not mental disorders or infectious disease) (3 sources) Encounter for screening for diabetes mellitus; Translations: [Other abnormal and inconclusive findings on diagnostic imaging of breast] Onset: 4 Episodic Rheumatoid arthritis and related disease (2 sources) Inflammatory polyarthropathy; Translations: [Inflammatory polyarthropathy] Onset: 5 Chronic Thyroid disorders (1 source) Hypothyroidism, unspecified; Translations: [Hypothyroidism, unspecified] Onset: 4 Chronic Past or Other Problems Problem Classification Problem Date Documented Da te Episodic/Chronic Malaise and fatigue (1 source) Other fatigue; Translations: [Other fatigue] Onset: 12-01-2023 Episodic Results Test Name Value Interpretation Reference Range Facility Breast Limited Unilateralon 02-27-2025 Breast Limited Unilateral [facility] [address] [place], [place] [address] Breast Limited Unilateral MR#: [id number] Acct: [id number] Name: NGOC KAUFFMAN Rep #: [id number] : 1980 F 44 From: Skip branch MD PCP: Dr. Coral Martinez MD Status: REG CLI Study: Breast Limited Unilateral Date of Exam: Exam# [id number] Ordering Dr: Coral Martinez MD PROCEDURE: BREAST LIMITED UNILATERAL 02/27/2025 REASON FOR EXAM: F, Age 44 y/o , AB MAMM Abnormal screening mammogram COMPARISON: . TECHNIQUE: Procedure Code: USBRSTLIMIT Modality: US Procedure: BREAST LIMITED UNILATERAL FINDINGS: The upper lateral aspect of the left breast was examined with ultrasound. There is dense fibroglandular tissue. No sonographic abnormality is seen. This most likely represents asymmetry of breast tissue. US/Breast Limited Unilateral IMPRESSION: No sonographic abnormality is seen. BI-RADS 2: BENIGN RECOMMENDATION: Routine annual follow-up in 1 Year Reading Location: [place] [address] CC: Dr. Coral Martinez MD Urology Nurse: Signed Normal [facility] SCRN MAMM (CAD)W/ISABELL BILATo n 02-20-2025 SCRN MAMM (CAD)W/ISABELL BILAT [facility] [address] [place], [place] [address] SCRN MAMM (CAD)W/ISABELL BILAT MR#: [id number] Acct: [id number] Name: NGOC KAUFFMAN Rep #: [id number] : 1980 F 44 From: Skip branch MD PCP: Dr. Coral Martinez MD Status: REG CLI Study: SCRN MAMM (CAD)W/ISABELL BILAT Date of Exam: 02/07 09/01 Exam# [id number] Ordering Dr: Coral Martinez MD EXAM: SCRN MAMM (CAD)W/ISABELL BILAT DATE: 02/20/2025 CLINICAL HISTORY: F, Age 44 y/o , SCREEN No family history. Burning sensation of the left breast. TECHNIQUE: Procedure Code: BISMWCADBTOM Modality: MG Procedure: SCRN MAMM (CAD)W/ISABELL BILAT COMPARISON: Prior exam(s) dated March 29, 2023.. FINDINGS: TISSUE DENSITY: There are scattered areas of fibroglandular density. Bilateral Breast Mammographic Findings: No significant masses, calcifications or other abnormalities are identified. Asymmetry of breast tissue were more breast tissue is seen in the upper-outer quadrant of the left breast as compared to the right side. Targeted sonographic correlation recommended. BI/SCRN MAMM (CAD)W/ISABELL BILAT IMPRESSION: Asymmetry of breast tissue were more breast tissue is seen in the upper-outer quadrant left breast. Sonographic correlation recommended. OVERALL FINAL ASSESSMENT BI-RADS 0: INCOMPLETE - NEED ADDITIONAL IMAGING EVALUATION. RECOMMENDATION: Ultrasound Recommended Additional Recommendation none A letter with findings and recommendations will be mailed to the patient. Reading Location: [place] [address] CC: Dr. Coral Martinez MD Urology Nurse: Signed Normal [facility] T4 Free Directon 01-23-2025 T4 FREE DIRECT 1.20 ng/dL Normal 0.76-1.46 [facility] Comment on above: Order Comment: Order Date: 01/23/25 Order Info: [id number] - TSH Order Info: [id number] - T4F Performed By: #### L 506.0400, L501.9520 #### [facility] [address] [place], [place], [address] T4 freeOrdered By: Coral wetzel on 01-23-2025 Free T4 [Mass/Vol] 1.20 ng/dL 0.76-1.46 [facility] TSH DL <= 0.005 mIU/L QnOrde red By: Coral Martinez on 01-23-2025 TSH Qn 0.064 uIU/mL Low 0.300-4.200 [facility] Thyroid Stim Hormone (TSH)on 01-23-2025 TSH 0.064 uIU/mL Low 0.300-4.200 [facility] Comment on above: Order Comment: Order Date: 01/23/25 Order Info: [id number] - TSH Order Info: [id number] - T4F Performed By: #### L 506.0400, L501.9520 #### [facility] [address] [place], [place], [address] Absolute lymphocyte countOrd ered By: Clarice Liriano on 01-18-2025 Lymphocytes Auto (Unsp spec) [#/Vol] 2.80 10*3/uL 0.83-4.51 [facility] Absolute neutrophil countOrd ered By: Clarice Liriano on 01-18-2025 Neutrophils (Bld) [#/Vol] 3.6 10*3/uL 2.0-7.7 [facility] Anion gap in Serum or Plasma Ordered By: Clarice Liriano on 01-18-2025 Anion gap [Moles/Vol] 10 mmol/L 5-15 [facility] Automated lymphocyte count a s percentage of total leukocytesOrdered By: Clarice Liriano on 01-18-2025 Lymphocytes/100 WBC Auto (Unsp spec) 37.4 % 19-41 [facility] BUN/creatinine ratioOrdered By: Clarice Liriano on 01-18-2025 Urea nitrogen/Creatinine [Mass ratio] 8.8 mg/mg Low 10-20 [facility] Basophil percentageOrdered B y: Clarice Liriano on 01-18-2025 Basophils/100 WBC (Bld) 0.7 % 0-1 [facility] Bilirubin, totalOrdered By: Clarice Liriano on 01-18-2025 Bilirubin [Mass/Vol] 0.21 mg/dL 0.00-1.30 [facility] CBC W/Diff, Automatedon 01-08 Absolute Lymph 2.80 X10 3/uL Normal 0.83-4.51 [facility] Comment on above: Performed By: #### L 500.4050, L100.0100 #### [facility] [address] [place], [address] Absolute Neut 3.6 X10 3/uL Normal 2.0-7.7 [facility] Comment on above: Performed By: #### L 500.4050, L100.0100 #### [facility] [address] [place], [address] Basophils/100 WBC (Bld) 0.7 % Normal 0-1 [facility] Comment on above: Performed By: #### L 500.4050, L100.0100 #### [facility] [address] [place], [address] Eosinophils/100 WBC (Bld) 3.2 % Normal 0-5 [facility] Comment on above: Performed By: #### L 500.4050, L100.0100 #### [facility] [address] [place], [address] Erythrocyte distribution width (RBC) [Ratio] 13.6 % Normal 11.6-14.6 [facility] Comment on above: Performed By: #### L 500.4050, L100.0100 #### [facility] [address] [place], [address] Hematocrit (Bld) [Volume fraction] 37.7 % Normal 37-47 [facility] Comment on above: Performed By: #### L 500.4050, L100.0100 #### [facility] [address] [place], [address] Hemoglobin (Bld) [Mass/Vol] 12.4 g/dL Normal 12.0-15.0 [facility] Comment on above: Performed By: #### L 500.4050, L100.0100 #### [facility] [address] [place], [address] IG% 0.300 Normal 0.0-0.9 [facility] Comment on above: Result Comment: IG% - Immature Granulocytes (promyelocytes, myelocytes and metamyelocytes) > 1% indicates that a LEFT SHIFT is Present. Performed By: #### L 500.4050, L100.0100 #### [facility] [address] [place], [address] Lymphocytes/100 WBC (Bld) 37.4 % Normal 19-41 [facility] Comment on above: Performed By: #### L 500.4050, L100.0100 #### [facility] [address] [place], [address] MCH (RBC) [Entitic mass] 32.5 pg High 27.0-32.0 [facility] Comment on above: Performed By: #### L 500.4050, L100.0100 #### [facility] [address] [place], [address] MCHC (RBC) [Mass/Vol] 32.9 g/dL Normal 32-36 [facility] Comment on above: Performed By: #### L 500.4050, L100.0100 #### [facility] [address] [place], [address] MCV (RBC) [Entitic vol] 98.7 fL Normal 81-99 [facility] Comment on above: Performed By: #### L 500.4050, L100.0100 #### [facility] [address] [place], [address] Monocytes/100 WBC (Bld) 9.8 % Normal 0-10 [facility] Comment on above: Performed By: #### L 500.4050, L100.0100 #### [facility] [address] [place], [address] Neutrophils/100 WBC (Bld) 48.6 % Normal 47-70 [facility] Comment on above: Performed By: #### L 500.4050, L100.0100 #### [facility] [address] [place], [address] Nucleated RBC (Bld) [#/Vol] 0 10*3/uL Normal 0-5 [facility] Comment on above: Performed By: #### L 500.4050, L100.0100 #### [facility] [address] [place], [address] Platelet mean volume (Bld) [Entitic vol] 10.0 fL Normal 6.2-12.0 [facility] Comment on above: Performed By: #### L 500.4050, L100.0100 #### [facility] [address] [place], [address] Platelets (Bld) [#/Vol] 242 10*3/uL Normal 150-450 [facility] Comment on above: Performed By: #### L 500.4050, L100.0100 #### [facility] [address] [place], [address] RBC (Bld) [#/Vol] 3.82 10*6/uL Low 4.2-5.4 [facility] Comment on above: Performed By: #### L 500.4050, L100.0100 #### [facility] [address] [place], [address] RDW SD 49.7 fl High 35.1-43.9 [facility] Comment on above: Performed By: #### L 500.4050, L100.0100 #### [facility] [address] [place], [address] WBC (Bld) [#/Vol] 7.5 10*3/uL Normal 4.4-11.0 [facility] Comment on above: Performed By: #### L 500.4050, L100.0100 #### [facility] [address] [place], [address] Carbon dioxide, total [Moles /volume] in Central venous bloodOrdered By: Clarice Liriano on 01-18-2025 CO2 [Moles/Vol] 24.8 mmol/L 21.0-32.0 [facility] Chloride assayOrdered By: Lynn Liriano on 01-18-2025 Chloride [Moles/Vol] 104 mmol/L 98-108 [facility] Comprehensive Metabolic Prof ilon 01-18-2025 Albumin [Mass/Vol] 4.2 g/dL Normal 3.5-5.0 [facility] Comment on above: Performed By: #### L 500.4050, L100.0100 #### [facility] [address] [place], [address] Albumin/Globulin [Mass ratio] 1.5 {ratio} Normal 0.9-2.4 [facility] Comment on above: Performed By: #### L 500.4050, L100.0100 #### [facility] [address] [place], [address] ALK PHOS 54 U/L Normal 35-104 [facility] Comment on above: Performed By: #### L 500.4050, L100.0100 #### [facility] [address] [place], [address] ALT [Catalytic activity/Vol] 22 U/L Normal <=34 [facility] Comment on above: Performed By: #### L 500.4050, L100.0100 #### [facility] [address] [place], [address] AST [Catalytic activity/Vol] 20 U/L Normal <=31 [facility] Comment on above: Performed By: #### L 500.4050, L100.0100 #### [facility] [address] [place], [address] Bilirubin [Mass/Vol] 0.21 mg/dL Normal 0.00-1.30 [facility] Comment on above: Performed By: #### L 500.4050, L100.0100 #### [facility] [address] [place], [address] BUN/CRE 8.8 RATIO Low 10-20 [facility] Comment on above: Performed By: #### L 500.4050, L100.0100 #### [facility] [address] [place], [address] Calcium [Mass/Vol] 9.2 mg/dL Normal 7.6-11.0 [facility] Comment on above: Performed By: #### L 500.4050, L100.0100 #### [facility] [address] [place], [address] Chloride [Moles/Vol] 104 mmol/L Normal 98-108 [facility] Comment on above: Performed By: #### L 500.4050, L100.0100 #### [facility] [address] [place], [address] CO2 [Moles/Vol] 24.8 mmol/L Normal 21.0-32.0 [facility] Comment on above: Performed By: #### L 500.4050, L100.0100 #### [facility] [address] [place], [address] Creatinine [Mass/Vol] 0.68 mg/dL Low 0.70-1.20 [facility] Comment on above: Performed By: #### L 500.4050, L100.0100 #### [facility] [address] [place], [address] GAP 10 Normal 5-15 [facility] Comment on above: Performed By: #### L 500.4050, L100.0100 #### [facility] [address] [place], [address] GFR/1.73 sq M.predicted among non-blacks MDRD (S/P/Bld) [Vol rate/Area] 110 mL/min/{1.73_m2} Normal >60 [facility] Comment on above: Result Comment: mL/m in/1.73m2 CKD-EPI Creatinine Equation (2020) Performed By: #### L 500.4050, L100.0100 #### [facility] [address] [place], [address] Globulin (S) [Mass/Vol] 2.8 g/dL Normal 2.2-4.2 [facility] Comment on above: Performed By: #### L 500.4050, L100.0100 #### [facility] [address] [place], [address] Glucose [Mass/Vol] 85 mg/dL Normal 70-99 [facility] Comment on above: Performed By: #### L 500.4050, L100.0100 #### [facility] [address] [place], [address] Potassium [Moles/Vol] 4.1 mmol/L Normal 3.3-5.1 [facility] Comment on above: Performed By: #### L 500.4050, L100.0100 #### [facility] [address] [place], [address] Sodium [Moles/Vol] 139 mmol/L Normal 133-145 [facility] Comment on above: Performed By: #### L 500.4050, L100.0100 #### [facility] [address] [place], [address] T PROT 7.0 g/dL Normal 5.9-8.4 [facility] Comment on above: Performed By: #### L 500.4050, L100.0100 #### [facility] [address] [place], [address] Urea nitrogen [Mass/Vol] 6 mg/dL Normal 4-19 [facility] Comment on above: Performed By: #### L 500.4050, L100.0100 #### [facility] [address] [place], [address] Eosinophil percentageOrdered By: Clarice Liriano on 01-18-2025 Eosinophils/100 WBC (Bld) 3.2 % 0-5 [facility] Erythrocyte distribution wid th ratioOrdered By: [facility] Deandra on 01-18-2025 Erythrocyte distribution width (RBC) [Ratio] 13.6 % 11.6-14.6 [facility] Erythrocyte distribution wid th standard deviationOrdered By: Clarice Deandra on 01-18-2025 Erythrocyte distribution width (RBC) [Ratio] 49.7 fl High 35.1-43.9 [facility] Glomerular filtration rate ( GFR) estimation/1.73 sq m using serum, plasma, or whole bOrdered By: Clarice Liriano on 01-18-2025 GFR/1.73 sq M.predicted among non-blacks MDRD (S/P/Bld) [Vol rate/Area] 110 mL/min/{1.73_m2} >60 [facility] Comment on above: mL/min/1.73m2 CKD-EP I Creatinine Equation (2020) Hematocrit Auto (Bld) [Volum e fraction]Ordered By: Clarice Liriano on 01-18-2025 Hematocrit (Bld) [Volume fraction] 37.7 % 37-47 [facility] Hemoglobin measurementOrdere d By: Clarice Liriano on 01-18-2025 Hemoglobin (Bld) [Mass/Vol] 12.4 g/dL 12.0-15.0 [facility] Immature granulocytes/100 WB C Auto (Bld)Ordered By: Clarice Liriano on 01-18-2025 Immature granulocytes/100 WBC (Bld) 0.300 % 0.0-0.9 [facility] Comment on above: IG% - Immature Granu locytes (promyelocytes, myelocytes and metamyelocytes) > 1% indicates that a LEFT SHIFT is Present. Laboratory - Chemistry and C hemistry - challengeOrdered By: Clarice Liriano on 01-18-2025 AST [Catalytic activity/Vol] 20 U/L <32 [facility] MCV (mean corpuscular volume ) determinationOrdered By: Clarice Liriano on 01-18-2025 MCV (RBC) [Entitic vol] 98.7 fL 81-99 [facility] Mean corpuscular hemoglobin (MCH) determinationOrdered By: Clarice Liriano on 01-18-2025 MCH (RBC) [Entitic mass] 32.5 pg High 27.0-32.0 [facility] Mean corpuscular hemoglobin concentration (MCHC) determinationOrdered By: Clarcie Liriano on 01-18-2025 MCHC (RBC) [Mass/Vol] 32.9 g/dL 32-36 [facility] Mean platelet volume determi nationOrdered By: Clarice Liriano on 01-18-2025 Platelet mean volume (Bld) [Entitic vol] 10.0 fL 6.2-12.0 [facility] Monocyte percentageOrdered B y: Clarice Liriano on 01-18-2025 Monocytes/100 WBC (Bld) 9.8 % 0-10 [facility] Neutrophil percentageOrdered By: Clarice Liriano on 01-18-2025 Neutrophils/100 WBC (Bld) 48.6 % 47-70 [facility] Nucleated red blood cell per centageOrdered By: Clarice Liriano on 01-18-2025 Nucleated RBC/100 WBC (Bld) [Ratio] 0 % 0-5 [facility] Platelet countOrdered By: Lynn Liriano on 01-18-2025 Platelets (Bld) [#/Vol] 242 10*3/uL 150-450 [facility] Potassium measurement (mass/ volume)Ordered By: Clarice Liriano on 01-18-2025 Potassium (Unsp spec) [Mass/Vol] 4.1 mmol/L 3.3-5.1 [facility] RBC Auto (Bld) [#/Vol]Ordere d By: Clarice Liriano on 01-18-2025 RBC (Bld) [#/Vol] 3.82 10*6/uL Low 4.2-5.4 [facility] Serum creatinine measurement (mass/volume)Ordered By: Clarice Liriano on 01-18-2025 Creatinine [Mass/Vol] 0.68 mg/dL Low 0.70-1.20 [facility] Serum globulin measurementOr dered By: Clarice Liriano on 01-18-2025 Globulin (S) [Mass/Vol] 2.8 g/dL 2.2-4.2 [facility] Serum glucose measurement (m ass/volume)Ordered By: Clarice Liriano on 01-18-2025 Glucose [Mass/Vol] 85 mg/dL 70-99 [facility] Serum or plasma alanine jordan otransferase (ALT) measurementOrdered By: Clarice Liriano on 01-18-2025 ALT [Catalytic activity/Vol] 22 U/L <35 [facility] Serum or plasma albumin chey urement (mass/volume)Ordered By: Clarice Liriano on 01-18-2025 Albumin [Mass/Vol] 4.2 g/dL 3.5-5.0 [facility] Serum or plasma albumin/glob ulin mass ratioOrdered By: Clarice Liriano on 01-18-2025 Albumin/Globulin [Mass ratio] 1.5 {ratio} 0.9-2.4 [facility] Serum or plasma alkaline yony sphatase measurementOrdered By: Clarice Liriano on 01-18-2025 ALP [Catalytic activity/Vol] 54 U/L 35-104 [facility] Serum or plasma calcium chey urement (mass/volume)Ordered By: Clarice Liriano on 01-18-2025 Calcium [Mass/Vol] 9.2 mg/dL 7.6-11.0 [facility] Serum or plasma urea nitroge n measurement (mass/volume)Ordered By: Clarice Liriano on 01-18-2025 Urea nitrogen [Mass/Vol] 6 mg/dL 4-19 [facility] Sodium levelOrdered By: Elana Liriano on 01-18-2025 Sodium [Moles/Vol] 139 mmol/L 133-145 [facility] Total proteinOrdered By: Jersey Liriano on 01-18-2025 Protein [Mass/Vol] 7.0 g/dL 5.9-8.4 [facility] White blood cell (WBC) count Ordered By: Clarice Liriano on 01-18-2025 WBC (Bld) [#/Vol] 7.5 10*3/uL 4.4-11.0 [facility] Colonoscopy Reporton 025 Colonoscopy Report [facility] Medical Records Department [address] [place] [address] Colonoscopy Report MR#: [id number] Acct: [id number] Name: NGOC KAUFFMAN Rep #: [id number] : 1980 44 From: Misael Moore DO PCP: Dr. Coral Martinez MD Status:[facility] Patient Name: Ngoc Kauffman Procedure Date: 01/16/2025 [...] present medications. Procedure Code(s): --- Professional --- 95393, Colonoscopy, flexible; with removal of tumor(s), polyp(s), or other lesion(s) by snare technique 66859, 59, Colonoscopy, flexible; with biopsy, single or multiple CPT copyright 2021 [employer]. All rights reserved. The codes documented in this report are preliminary and upon video game designer review may be revised to meet current compliance requirements. Misael Moore DO 01/16/2025 7:17:59 AM This report has b (more content not included)... Normal [facility] Medical Records Department [address] [place] [address] Provation Physician Letter MR#: [id number] Acct: [id number] Name: NGOC KAUFFMAN Rep #: [id number] : 1980 44 From: Misael Moore DO PCP: Dr. Coral Martinez MD Status:[facility] 01/16/2025 Coral Martinez Md Re : Colonoscopy procedure for Ngoc Kauffman Sebastian Martinez This procedure was performed on Thursday, January [...] has been signed electronically. 01/16/25717 Date Misael Davila Signature: Date (if indicated) CC: Dr. Coral Martinez MD; Misael Moore DO Date Dictated: 01/16/25612 Date Transcribed: Urology Nurse: MASSIEL Signed [facility] MR/POSTOP.Abigail 01-16-2025 MR/POSTOP.[facility] Medical Records Department [address] [place] [address] Anesthesia Postop Eval I 01/16/25720 MR#: [id number] Acct: [id number] Name: NGOC KAUFFMAN Rep #: [id number] : 1980 44 From: Nomi Moses PCP: Dr. Coral Martinez MD Status:REG [facility] Y Race: C Location: [place] [address] Anesthesia: Postop Eval I Current Vital Signs [...] Eval 1 completed: Yes 01/16/25721 Date Nomi Yost Signature: CC: Signed Normal [facility] MR/[id number] 01-16-2025 MR/POSTOPAN2 [facility] Medical Records Department [address] [place] [address] Anesthesia Postop Eval II 01/16/25825 MR#: [id number] Acct: [id number] Name: NGOC KAUFFMAN Rep #: [id number] : 1980 44 From: Junior Núñez MD PCP: Dr. Coral Martinez MD Status:DEP [facility] Y Race: C Location: [place] Anesthesia Postop [...] No Vomiting: No Complications Anesthesia Complication: No 01/16/25827 Junior Núñez MD Cosigner Signature: Date CC: Signed Normal [facility] Surgery Specimen Level Merlin 01-16-2025 Surgery Specimen Level IV -------- Patient Age/Sex Location Account Attending Physician -------- NGOC KAUFFMAN 44/F EN [id number] Misael Moore DO -------- Specimen: [id number] Received: 01/16/25 Status: SELAM Arce Num: [id number] Spec Type: COLON BX Subm Dr: Misael Moore, HEADER OPERATION: Colonoscopy, polypectomy, hemostasis, biopsy PRE-OP DIAGNOSIS: Diarrhea, bright red blood per rectum TISSUE SUBMITTED: A- Ascending polyp, B- Transverse polyp biopsy -------- MICROSCOPIC DIAGNOSIS A. Ascending colon, polyp, biopsy: - Fragments of colonic mucosa demonstrating tubular adenoma. - Fragments of mature adipose suggestive of submucosal lipoma. B. Transverse colon, polyp, biopsy: - Tubular adenoma. MICROSCOPIC DESCRIPTION Slides are reviewed. GROSS DESCRIPTION A. Received in fixative is one container labeled with the patient's name and designated Ascending polyp. The specimen consists of multiple irregular fragments of light brannon soft tissue that in aggregate measure 1.5 x 0.9 x 0.2 cm. The specimen is totally submitted in one cassette. B. Received in fixative is one container labeled with the patient's name and designated Transverse polyp biopsy. The specimen consists of one irregular fragment of light brannon soft tissue that measures 0.4 cm. The specimen is totally submitted in one cassette. GA 01/16/2025 [facility]:[id number] -------- Patient Age/Sex Location Account Attending Physician -------- NGOC KAUFFMAN 44/F EN [id number] Misael Moore DO -------- Signed (signature on file) Dr. Irma Drew MD 01/23/25 1308 -------- Normal [facility] Comment on above: Performed By: #### L 500.4050, L501.2450, L100.0100 #### [facility] [address] [facility] [place], [address] Colonoscopy Reporton 025 Colonoscopy Report [facility] Medical Records Department [address] [place] [address] Colonoscopy Report MR#: [id number] Acct: [id number] Name: NGOC KAUFFMAN Rep #: [id number] : 1980 44 From: Misael Moore DO PCP: Dr. Coral Martinez MD Status:REG [facility] Patient Name: Ngoc Kauffman Procedure Date: 12/12/2024 [...] was poor. Procedure Code(s): --- Professional --- 53988, 53, Colonoscopy, flexible; diagnostic, including collection of specimen(s) by brushing or washing, when performed (separate procedure) CPT copyright 2021 [employer]. All rights reserved. The codes documented in this report are preliminary and upon video game designer review may be revised to meet current compliance requirements. Misael Moore DO 12/12/2024 7:03:41 AM This report has been signed electronically. Number of Addenda: 0 Note Initiated On: 12/12/2024 6:26 AM 12/12/24 0704 Date Misael Davila Signature: Date (if indicated) CC: Dr. Coral Martinez MD; Misael Moore DO Date Dictated: 12/12/24625 Date Transcribed: Urology Nurse: MASSIEL Signed [facility] 12-12-[facility] MR[facility] Medical Records Department [address] [place] [address] [facility] Physician Letter MR#: [id number] Acct: [id number] Name: NGOC KAUFFMAN Rep #: [id number] : 1980 44 From: Misael Moore DO PCP: Dr. Coral Martinez MD Status:REG [facility] 12/12/2024 Coral Martinez Md Re : Colonoscopy [...] Moore DO Date Dictated: 12/12/24625 Date Transcribed: Urology Nurse: RF Signed [facility] MR/POSTOP.ANEon 12-12-2024 MR/POSTOP.[facility] Medical Records Department [address] [place] [address] Anesthesia Postop Eval I 12/12/24706 MR#: [id number] Acct: [id number] Name: NGOC KAUFFMAN Rep #: [id number] : 1980 44 From: Andrew Cassidy BLISS PRESS OPERATOR PCP: Dr. Coral Martinez MD Status:NICOLE [facility] Y Race: C Location: [place] [address] Anesthesia: Postop Eval I Current Vital Signs Temperature: 97 F Pulse Rate: 75 Blood Pressure: 97/54 Respiratory Rate: 16 Pulse Ox: 100 Assessment Airway patent: Yes Spontaneous unlabored respirations: Yes nausea: No Vomiting: No Anesthesia Complication: No Fluid Hydration Crystalloid volume administer (ml): 100 Total IV fluid infused: 100 Progress Note Anesthesia document: Postop Eval 1 completed: Yes 12/12/24706 Date Andrew Khanh BLISS PRESS OPERATOR Cosigner Signature: Date CC: Signed [facility] MR/[id number] 12-12-2024 MR/POSTOPAN2 [facility] Medical Records Department [address] [place] [address] Anesthesia Postop Eval II 12/12/242016 MR#: [id number] Acct: [id number] Name: NGOC KAUFFMAN Rep #: [id number] : 1980 44 From: Travis Kearns MD PCP: Dr. Coral Martinez MD Status:[facility] Y Race: C Location: [place] Anesthesia Postop Eval I Sum Postop Eval Completion status Anesthesia document: Postop Eval 1 completed: Yes Anesthesia Postop Eval I Summary Anesthesia Postop Eval I Summary: Anesthesia Postop Eval I: Assessment Summary Airway patent Yes 12/12/24 07:07 BLISS PRESS [email or web address] Spontaneous unlabored Yes 12/12/24 07:07 BLISS PRESS OPERATOR.TNES respirations Mental status nausea No 12/12/24 07:07 BLISS PRESS OPERATOR.TNES Vomiting No 12/12/24 07:07 BLISS PRESS OPERATOR.TNES Anesthesia Postop Eval I: Fluid Summary Crystalloid volume administer 100 12/12/24 07:07 BLISS PRESS OPERATOR.TNES (ml) Colloids volume administered ( ml) Blood Product volume administered (ml) Total IV fluid infused 100 12/12/24 07:07 BLISS PRESS OPERATOR.TNES Anesthesia Postop Eval I: Summary Notes Anesthesia Complication No 12/12/24 07:07 BLISS PRESS OPERATOR.TNES Anesthesia Complication Comment: Post-operative progress note Anesthesia: Postop Eval II Evaluation Mental status: Awake and Calm Pain Level: 1 nausea: No Vomiting: No Complications Anesthesia Complication: No 12/12/242016 Date Travis Kearns MD Cosigner Signature: Date CC: Signed Normal [facility] Absolute lymphocyte countOrd ered By: Clarice Liriano on 11-13-2024 Lymphocytes Auto (Unsp spec) [#/Vol] 1.87 10*3/uL 0.83-4.51 [facility] Absolute neutrophil countOrd ered By: Clarice Liriano on 11-13-2024 Neutrophils (Bld) [#/Vol] 4.1 10*3/uL 2.0-7.7 [facility] Anion gap in Serum or Plasma Ordered By: Clarice Liriano on 11-13-2024 Anion gap [Moles/Vol] 12 mmol/L 5-15 [facility] Automated lymphocyte count a s percentage of total leukocytesOrdered By: Clarice Liriano on 11-13-2024 Lymphocytes/100 WBC Auto (Unsp spec) 26.9 % 19-41 [facility] BUN/creatinine ratioOrdered By: Clarice Liriano on 11-13-2024 Urea nitrogen/Creatinine [Mass ratio] 10.5 mg/mg 10-20 [facility] Basophil percentageOrdered B y: Clarice Liriano on 11-13-2024 Basophils/100 WBC (Bld) 0.4 % 0-1 [facility] Bilirubin, totalOrdered By: Clarice Liriano on 11-13-2024 Bilirubin [Mass/Vol] 0.42 mg/dL 0.00-1.30 [facility] CBC W/Diff, Automatedon Absolute Lymph 1.87 X10 3/uL Normal 0.83-4.51 [facility] Comment on above: Performed By: #### L 100.0100, L500.4050 #### [facility] [address] [place], [address] Absolute Neut 4.1 X10 3/uL Normal 2.0-7.7 [facility] Comment on above: Performed By: #### L 100.0100, L500.4050 #### [facility] [address] [place], [address] Basophils/100 WBC (Bld) 0.4 % Normal 0-1 [facility] Comment on above: Performed By: #### L 100.0100, L500.4050 #### [facility] [address] [place], [address] Eosinophils/100 WBC (Bld) 1.4 % Normal 0-5 [facility] Comment on above: Performed By: #### L 100.0100, L500.4050 #### [facility] [address] [place], [address] Erythrocyte distribution width (RBC) [Ratio] 13.7 % Normal 11.6-14.6 [facility] Comment on above: Performed By: #### L 100.0100, L500.4050 #### [facility] [address] [place], [address] Hematocrit (Bld) [Volume fraction] 37.8 % Normal 37-47 [facility] Comment on above: Performed By: #### L 100.0100, L500.4050 #### [facility] [address] [place], [address] Hemoglobin (Bld) [Mass/Vol] 12.6 g/dL Normal 12.0-15.0 [facility] Comment on above: Performed By: #### L 100.0100, L500.4050 #### [facility] [address] [place], [address] IG% 0.400 Normal 0.0-0.9 [facility] Comment on above: Result Comment: IG% - Immature Granulocytes (promyelocytes, myelocytes and metamyelocytes) > 1% indicates that a LEFT SHIFT is Present. Performed By: #### L 100.0100, L500.4050 #### [facility] [address] [place], [address] Lymphocytes/100 WBC (Bld) 26.9 % Normal 19-41 [facility] Comment on above: Performed By: #### L 100.0100, L500.4050 #### [facility] [address] [place], [address] MCH (RBC) [Entitic mass] 32.1 pg High 27.0-32.0 [facility] Comment on above: Performed By: #### L 100.0100, L500.4050 #### [facility] [address] [place], [address] MCHC (RBC) [Mass/Vol] 33.3 g/dL Normal 32-36 [facility] Comment on above: Performed By: #### L 100.0100, L500.4050 #### [facility] [address] [place], [address] MCV (RBC) [Entitic vol] 96.2 fL Normal 81-99 [facility] Comment on above: Performed By: #### L 100.0100, L500.4050 #### [facility] [address] [place], [address] Monocytes/100 WBC (Bld) 11.7 % High 0-10 [facility] Comment on above: Performed By: #### L 100.0100, L500.4050 #### [facility] [address] [place], [address] Neutrophils/100 WBC (Bld) 59.2 % Normal 47-70 [facility] Comment on above: Performed By: #### L 100.0100, L500.4050 #### [facility] [address] [place], [address] Nucleated RBC (Bld) [#/Vol] 0 10*3/uL Normal 0-5 [facility] Comment on above: Performed By: #### L 100.0100, L500.4050 #### [facility] [address] [place], [address] Platelet mean volume (Bld) [Entitic vol] 10.5 fL Normal 6.2-12.0 [facility] Comment on above: Performed By: #### L 100.0100, L500.4050 #### [facility] [address] [place], [address] Platelets (Bld) [#/Vol] 233 10*3/uL Normal 150-450 [facility] Comment on above: Performed By: #### L 100.0100, L500.4050 #### [facility] [address] [place], [address] RBC (Bld) [#/Vol] 3.93 10*6/uL Low 4.2-5.4 [facility] Comment on above: Performed By: #### L 100.0100, L500.4050 #### [facility] [address] [place], [address] RDW SD 48.8 fl High 35.1-43.9 [facility] Comment on above: Performed By: #### L 100.0100, L500.4050 #### [facility] [address] [place], [address] WBC (Bld) [#/Vol] 7.0 10*3/uL Normal 4.4-11.0 [facility] Comment on above: Performed By: #### L 100.0100, L500.4050 #### [facility] [address] [place], [address] Carbon dioxide, total [Moles /volume] in Central venous bloodOrdered By: Clarice Liriano on 11-13-2024 CO2 [Moles/Vol] 20.3 mmol/L Low 21.0-32.0 [facility] Chloride assayOrdered By: Lynn Liriano on 11-13-2024 Chloride [Moles/Vol] 105 mmol/L 98-108 [facility] Comprehensive Metabolic Prof ilon 11-13-2024 Albumin [Mass/Vol] 4.3 g/dL Normal 3.5-5.0 [facility] Comment on above: Performed By: #### L 100.0100, L500.4050 #### [facility] [address] [place], [address] Albumin/Globulin [Mass ratio] 1.6 {ratio} Normal 0.9-2.4 [facility] Comment on above: Performed By: #### L 100.0100, L500.4050 #### [facility] [address] [place], [address] ALK PHOS 61 U/L Normal 35-104 [facility] Comment on above: Performed By: #### L 100.0100, L500.4050 #### [facility] [address] [place], [address] ALT [Catalytic activity/Vol] 25 U/L Normal <=34 [facility] Comment on above: Performed By: #### L 100.0100, L500.4050 #### [facility] [address] [place], [address] AST [Catalytic activity/Vol] 19 U/L Normal <=31 [facility] Comment on above: Performed By: #### L 100.0100, L500.4050 #### [facility] [address] [place], [address] Bilirubin [Mass/Vol] 0.42 mg/dL Normal 0.00-1.30 [facility] Comment on above: Performed By: #### L 100.0100, L500.4050 #### [facility] [address] [place], [address] BUN/CRE 10.5 RATIO Normal 10-20 [facility] Comment on above: Performed By: #### L 100.0100, L500.4050 #### [facility] [facility] [address] [place], [address] Calcium [Mass/Vol] 9.4 mg/dL Normal 7.6-11.0 [facility] Comment on above: Performed By: #### L 100.0100, L500.4050 #### [facility] [address] [place], [address] Chloride [Moles/Vol] 105 mmol/L Normal 98-108 [facility] Comment on above: Performed By: #### L 100.0100, L500.4050 #### [facility] [address] [place], [address] CO2 [Moles/Vol] 20.3 mmol/L Low 21.0-32.0 [facility] Comment on above: Performed By: #### L 100.0100, L500.4050 #### [facility] [address] [place], [address] Creatinine [Mass/Vol] 0.84 mg/dL Normal 0.70-1.20 [facility] Comment on above: Performed By: #### L 100.0100, L500.4050 #### [facility] [address] [place], [address] GAP 12 Normal 5-15 [facility] Comment on above: Performed By: #### L 100.0100, L500.4050 #### [facility] [address] [place], [address] GFR/1.73 sq M.predicted among non-blacks MDRD (S/P/Bld) [Vol rate/Area] 88 mL/min/{1.73_m2} Normal >60 [facility] Comment on above: Result Comment: mL/m in/1.73m2 CKD-EPI Creatinine Equation (2020) Performed By: #### L 100.0100, L500.4050 #### [facility] [address] [place], [address] Globulin (S) [Mass/Vol] 2.8 g/dL Normal 2.2-4.2 [facility] Comment on above: Performed By: #### L 100.0100, L500.4050 #### [facility] [address] [place], [address] Glucose [Mass/Vol] 96 mg/dL Normal 70-99 [facility] Comment on above: Performed By: #### L 100.0100, L500.4050 #### [facility] [address] [place], [address] Potassium [Moles/Vol] 4.2 mmol/L Normal 3.3-5.1 [facility] Comment on above: Performed By: #### L 100.0100, L500.4050 #### [facility] [address] [place], [address] Sodium [Moles/Vol] 137 mmol/L Normal 133-145 [facility] Comment on above: Performed By: #### L 100.0100, L500.4050 #### [facility] [address] [place], [address] T PROT 7.0 g/dL Normal 5.9-8.4 [facility] Comment on above: Performed By: #### L 100.0100, L500.4050 #### [facility] [address] [place], [address] Urea nitrogen [Mass/Vol] 9 mg/dL Normal 4-19 [facility] Comment on above: Performed By: #### L 100.0100, L500.4050 #### [facility] [address] [place], [address] Eosinophil percentageOrdered By: Clarice Liriano on 11-13-2024 Eosinophils/100 WBC (Bld) 1.4 % 0-5 [facility] Erythrocyte distribution wid th ratioOrdered By: Clarice Liriano on 11-13-2024 Erythrocyte distribution width (RBC) [Ratio] 13.7 % 11.6-14.6 [facility] Erythrocyte distribution wid th standard deviationOrdered By: Clarice Liriano on 11-13-2024 Erythrocyte distribution width (RBC) [Ratio] 48.8 fl High 35.1-43.9 [facility] Glomerular filtration rate ( GFR) estimation/1.73 sq m using serum, plasma, or whole bOrdered By: Clarice Liriano on 11-13-2024 GFR/1.73 sq M.predicted among non-blacks MDRD (S/P/Bld) [Vol rate/Area] 88 mL/min/{1.73_m2} >60 [facility] Comment on above: mL/min/1.73m2 CKD-EP I Creatinine Equation (2020) Hematocrit Auto (Bld) [Volum e fraction]Ordered By: Clarice Liriano on 11-13-2024 Hematocrit (Bld) [Volume fraction] 37.8 % 37-47 [facility] Hemoglobin measurementOrdere d By: Clarice Liriano on 11-13-2024 Hemoglobin (Bld) [Mass/Vol] 12.6 g/dL 12.0-15.0 [facility] Immature granulocytes/100 WB C Auto (Bld)Ordered By: Clarice Liriano on 11-13-2024 Immature granulocytes/100 WBC (Bld) 0.400 % 0.0-0.9 [facility] Comment on above: IG% - Immature Granu locytes (promyelocytes, myelocytes and metamyelocytes) > 1% indicates that a LEFT SHIFT is Present. Laboratory - Chemistry and C hemistry - challengeOrdered By: Clarice Liriano on 11-13-2024 AST [Catalytic activity/Vol] 19 U/L <32 [facility] MCV (mean corpuscular volume ) determinationOrdered By: Clarice Liriano on 11-13-2024 MCV (RBC) [Entitic vol] 96.2 fL 81-99 [facility] Mean corpuscular hemoglobin (MCH) determinationOrdered By: Clarice Liriano 11-13-2024 MCH (RBC) [Entitic mass] 32.1 pg High 27.0-32.0 [facility] Mean corpuscular hemoglobin concentration (MCHC) determinationOrdered By: Clarice Liriano on 11-13-2024 MCHC (RBC) [Mass/Vol] 33.3 g/dL 32-36 [facility] Mean platelet volume determi nationOrdered By: Clarice Liriano on 11-13-2024 Platelet mean volume (Bld) [Entitic vol] 10.5 fL 6.2-12.0 [facility] Monocyte percentageOrdered B y: Clarice Liriano on 11-13-2024 Monocytes/100 WBC (Bld) 11.7 % High 0-10 [facility] Neutrophil percentageOrdered By: Clarice Liriano on 11-13-2024 Neutrophils/100 WBC (Bld) 59.2 % 47-70 [facility] Nucleated red blood cell per centageOrdered By: Clarice Liriano on 11-13-2024 Nucleated RBC/100 WBC (Bld) [Ratio] 0 % 0-5 [facility] Platelet countOrdered By: Lynn Liriano on 11-13-2024 Platelets (Bld) [#/Vol] 233 10*3/uL 150-450 [facility] Potassium measurement (mass/ volume)Ordered By: Clarice Liriano on 11-13-2024 Potassium (Unsp spec) [Mass/Vol] 4.2 mmol/L 3.3-5.1 [facility] RBC Auto (Bld) [#/Vol]Ordere d By: Clarice Liriano on 11-13-2024 RBC (Bld) [#/Vol] 3.93 10*6/uL Low 4.2-5.4 [facility] Serum creatinine measurement (mass/volume)Ordered By: Clarice Liriano on 11-13-2024 Creatinine [Mass/Vol] 0.84 mg/dL 0.70-1.20 [facility] Serum globulin measurementOr dered By: Clarice Liriano on 11-13-2024 Globulin (S) [Mass/Vol] 2.8 g/dL 2.2-4.2 [facility] Serum glucose measurement (m ass/volume)Ordered By: Clarice Liriano on 11-13-2024 Glucose [Mass/Vol] 96 mg/dL 70-99 [facility] Serum or plasma alanine jordan otransferase (ALT) measurementOrdered By: Clarice Liriano on 11-13-2024 ALT [Catalytic activity/Vol] 25 U/L <35 [facility] Serum or plasma albumin chey urement (mass/volume)Ordered By: Clarice Liriano on 11-13-2024 Albumin [Mass/Vol] 4.3 g/dL 3.5-5.0 [facility] Serum or plasma albumin/glob ulin mass ratioOrdered By: Clarice Liriano on 11-13-2024 Albumin/Globulin [Mass ratio] 1.6 {ratio} 0.9-2.4 [facility] Serum or plasma alkaline yony sphatase measurementOrdered By: Clarice Liriano on 11-13-2024 ALP [Catalytic activity/Vol] 61 U/L 35-104 [facility] Serum or plasma calcium chey urement (mass/volume)Ordered By: Clarice Liriano on 11-13-2024 Calcium [Mass/Vol] 9.4 mg/dL 7.6-11.0 [facility] Serum or plasma urea nitroge n measurement (mass/volume)Ordered By: Clarice Liriano on 11-13-2024 Urea nitrogen [Mass/Vol] 9 mg/dL 4-19 [facility] Sodium levelOrdered By: Elana Liriano on 11-13-2024 Sodium [Moles/Vol] 137 mmol/L 133-145 [facility] Total proteinOrdered By: Jersey Liriano on 11-13-2024 Protein [Mass/Vol] 7.0 g/dL 5.9-8.4 [facility] White blood cell (WBC) count Ordered By: Clarice Liriano on 11-13-2024 WBC (Bld) [#/Vol] 7.0 10*3/uL 4.4-11.0 [facility] Calprotectin, Stoolon [address] 443 ug/g Abnormal 0-120 [facility] Comment on above: Result Comment: Conc entration Interpretation Follow-Up < 5 - 50 ug/g Normal None >50 -120 ug/g Borderline Re-evaluate in 4-6 weeks >120 ug/g Abnormal Repeat as clinically indicated Performed at: - [address] [id number] [employer]r: Fracisco Gallagher MD, Phone: [phone] Performed By: #### L 630.0550, L100.0101 #### [facility] [address] [place], [address] Calprotectin stoolOrdered By : Sheila Ray on 10-20-2024 Calprotectin stool 443 ug/g High 0-120 [facility] Comment on above: Concentration Interp retation Follow-Up< 5 - 50 ug/g Normal None>50 -120 ug/g Borderline Re-evaluate in 4-6 weeks >120 ug/g Abnormal Repeat as clinically indicatedPerformed at: [facility] [address] [id number] Director: Fracisco Gallagher MD, Phone: [phone] Absolute lymphocyte countOrd ered By: Sheila Ray on 10-17-2024 Lymphocytes Auto (Unsp spec) [#/Vol] 2.39 10*3/uL 0.83-4.51 [facility] Absolute neutrophil countOrd ered By: Sheila Ray on 10-17-2024 Neutrophils (Bld) [#/Vol] 4.4 10*3/uL 2.0-7.7 [facility] Automated lymphocyte count a s percentage of total leukocytesOrdered By: Sheila Ray on 10-17-2024 Lymphocytes/100 WBC Auto (Unsp spec) 31.7 % 19-41 [facility] Basophil percentageOrdered B y: Sheila Ray on 10-17-2024 Basophils/100 WBC (Bld) 0.5 % 0-1 [facility] CBC W/Diff, Automatedon 10-08 0-2024 Absolute Lymph 2.39 X10 3/uL Normal 0.83-4.51 [facility] Comment on above: Performed By: #### L 500.4050, L501.2450, L100.0100 #### [facility] [address] [place], [address] Absolute Neut 4.4 X10 3/uL Normal 2.0-7.7 [facility] Comment on above: Performed By: #### L 500.4050, L501.2450, L100.0100 #### [facility] [address] [place], [address] Basophils/100 WBC (Bld) 0.5 % Normal 0-1 [facility] Comment on above: Performed By: #### L 500.4050, L501.2450, L100.0100 #### [facility] [address] [place], [address] Eosinophils/100 WBC (Bld) 1.3 % Normal 0-5 [facility] Comment on above: Performed By: #### L 500.4050, L501.2450, L100.0100 #### [facility] [address] [place], [address] Erythrocyte distribution width (RBC) [Ratio] 13.1 % Normal 11.6-14.6 [facility] Comment on above: Performed By: #### L 500.4050, L501.2450, L100.0100 #### [facility] [address] [place], [address] Hematocrit (Bld) [Volume fraction] 39.0 % Normal 37-47 [facility] Comment on above: Performed By: #### L 500.4050, L501.2450, L100.0100 #### [facility] [address] [place], [address] Hemoglobin (Bld) [Mass/Vol] 12.8 g/dL Normal 12.0-15.0 [facility] Comment on above: Performed By: #### L 500.4050, L501.2450, L100.0100 #### [facility] [address] [place], [address] IG% 0.300 Normal 0.0-0.9 [facility] Comment on above: Result Comment: IG% - Immature Granulocytes (promyelocytes, myelocytes and metamyelocytes) > 1% indicates that a LEFT SHIFT is Present. Performed By: #### L 500.4050, L501.2450, L100.0100 #### [facility] [address] [place], [address] Lymphocytes/100 WBC (Bld) 31.7 % Normal 19-41 [facility] Comment on above: Performed By: #### L 500.4050, L501.2450, L100.0100 #### [facility] [address] [place], [address] MCH (RBC) [Entitic mass] 31.4 pg Normal 27.0-32.0 [facility] Comment on above: Performed By: #### L 500.4050, L501.2450, L100.0100 #### [facility] [address] [place], [address] MCHC (RBC) [Mass/Vol] 32.8 g/dL Normal 32-36 [facility] Comment on above: Performed By: #### L 500.4050, L501.2450, L100.0100 #### [facility] [address] [place], [address] MCV (RBC) [Entitic vol] 95.6 fL Normal 81-99 [facility] Comment on above: Performed By: #### L 500.4050, L501.2450, L100.0100 #### [facility] [address] [place], [address] Monocytes/100 WBC (Bld) 7.3 % Normal 0-10 [facility] Comment on above: Performed By: #### L 500.4050, L501.2450, L100.0100 #### [facility] [address] [place], [address] Neutrophils/100 WBC (Bld) 58.9 % Normal 47-70 [facility] Comment on above: Performed By: #### L 500.4050, L501.2450, L100.0100 #### [facility] [address] [place], [address] Nucleated RBC (Bld) [#/Vol] 0 10*3/uL Normal 0-5 [facility] Comment on above: Performed By: #### L 500.4050, L501.2450, L100.0100 #### [facility] [address] [place], [address] Platelet mean volume (Bld) [Entitic vol] 10.4 fL Normal 6.2-12.0 [facility] Comment on above: Performed By: #### L 500.4050, L501.2450, L100.0100 #### [facility] [address] [place], [address] Platelets (Bld) [#/Vol] 229 10*3/uL Normal 150-450 [facility] Comment on above: Performed By: #### L 500.4050, L501.2450, L100.0100 #### [facility] [address] [place], [address] RBC (Bld) [#/Vol] 4.08 10*6/uL Low 4.2-5.4 [facility] Comment on above: Performed By: #### L 500.4050, L501.2450, L100.0100 #### [facility] [address] [place], [address] RDW SD 46.1 fl High 35.1-43.9 [facility] Comment on above: Performed By: #### L 500.4050, L501.2450, L100.0100 #### [facility] [address] [place], [address] WBC (Bld) [#/Vol] 7.5 10*3/uL Normal 4.4-11.0 [facility] Comment on above: Performed By: #### L 500.4050, L501.2450, L100.0100 #### [facility] [address] [place], [address] CRPon 10-17-2024 C-REACTIVE PROT 13.10 mg/L High 0.0-3.0 [facility] Comment on above: Performed By: #### L 500.4050, L501.2450, L100.0100 #### [facility] [address] [place], [address] Eosinophil percentageOrdered By: Sheila Ray on 10-17-2024 Eosinophils/100 WBC (Bld) 1.3 % 0-5 [facility] Erythrocyte Sed Rateon 10-17 SED RATE 15 mm/hr Normal 0-30 [facility] Comment on above: Performed By: #### L 101.9900, L501.6710, L100.0100 #### [facility] [address] [place], [address] Erythrocyte distribution wid th ratioOrdered By: Sheila Ray on 10-17-2024 Erythrocyte distribution width (RBC) [Ratio] 13.1 % 11.6-14.6 [facility] Erythrocyte distribution wid th standard deviationOrdered By: Sheila Ray on 10-17-2024 Erythrocyte distribution width (RBC) [Ratio] 46.1 fl High 35.1-43.9 [facility] Erythrocyte sedimentation ra teOrdered By: Sheila Ray on 10-17-2024 ESR (Bld) [Velocity] 15 mm/h 0-30 [facility] Gastroenterology Visit Repor ton 10-17-2024 Gastroenterology Visit Report [facility] Gastroenterology [address] [place] [address] OFFICE VISIT Date of Service: 10/17/24 MR#: [id number] Acct: [id number] Name: DALYNGOC ANTONIO Rep #: [id number] : 1980 Provider: LYNN Zarate Age/Sex: 44/F Location: [facility] Status: Signed Intake Vital Signs 10/14/24 17:43 [...] 5 mg/0.5 10 mg subcut QWEEK 10/17/2410/08 0 History mL subcutaneous pen injector (Zepbound) Nurse's Note: OV 10/17/24 Pt here for f/u visit from ER. Pt reports nausea, constipation, abdominal pain, gas, bloating and bloody stools. Pt reports bm daily. Reports prior hx of colonoscopy in 2021. [facility] Medical History (Updated 10/17/24 @ 07:38 by [...] to the office today for establishment with [facility]. [facility] ED 10.14.24 with abdominal pain and bloody [...] and Positive (more content not included)... Normal [facility] Hematocrit Auto (Bld) [Volum e fraction]Ordered By: Sheila Ray on 10-17-2024 Hematocrit (Bld) [Volume fraction] 39.0 % 37-47 [facility] Hemoglobin measurementOrdere d By: Sheila Ray on 10-17-2024 Hemoglobin (Bld) [Mass/Vol] 12.8 g/dL 12.0-15.0 [facility] Immature granulocytes/100 WB C Auto (Bld)Ordered By: Sheila Ray on 10-17-2024 Immature granulocytes/100 WBC (Bld) 0.300 % 0.0-0.9 [facility] Comment on above: IG% - Immature Granu locytes (promyelocytes, myelocytes and metamyelocytes) > 1% indicates that a LEFT SHIFT is Present. MCV (mean corpuscular volume ) determinationOrdered By: Sheila Ray on 10-17-2024 MCV (RBC) [Entitic vol] 95.6 fL 81-99 [facility] Mean corpuscular hemoglobin (MCH) determinationOrdered By: Sheila Ray on 10-17-2024 MCH (RBC) [Entitic mass] 31.4 pg 27.0-32.0 [facility] Mean corpuscular hemoglobin concentration (MCHC) determinationOrdered By: Sheila Ray on 10-17-2024 MCHC (RBC) [Mass/Vol] 32.8 g/dL 32-36 [facility] Mean platelet volume determi nationOrdered By: Sheila Ray on 10-17-2024 Platelet mean volume (Bld) [Entitic vol] 10.4 fL 6.2-12.0 [facility] Monocyte percentageOrdered B y: Sheila Ray on 10-17-2024 Monocytes/100 WBC (Bld) 7.3 % 0-10 [facility] Neutrophil percentageOrdered By: Sheila Ray on 10-17-2024 Neutrophils/100 WBC (Bld) 58.9 % 47-70 [facility] Nucleated red blood cell per centageOrdered By: Sheila Ray on 10-17-2024 Nucleated RBC/100 WBC (Bld) [Ratio] 0 % 0-5 [facility] Platelet countOrdered By: Gissell Ray on 10-17-2024 Platelets (Bld) [#/Vol] 229 10*3/uL 150-450 [facility] RBC Auto (Bld) [#/Vol]Ordere d By: Sheila Ray on 10-17-2024 RBC (Bld) [#/Vol] 4.08 10*6/uL Low 4.2-5.4 [facility] Serum or plasma C reactive p rotein measurement (mass/volume)Ordered By: Sheila Ray on 10-17-2024 CRP [Mass/Vol] 13.10 mg/L High 0.0-3.0 [facility] White blood cell (WBC) count Ordered By: Sheila Ray on 10-17-2024 WBC (Bld) [#/Vol] 7.5 10*3/uL 4.4-11.0 [facility] Abdomen/Pelvis W IV Cont ONL Yon 10-14-2024 Abdomen/Pelvis W IV Cont ONLY [facility] Imaging Services [address] [place] [id number] Abdomen/Pelvis W IV Cont ONLY MR#: [id number] Acct: [id number] Name: NGOC KAUFFMAN Rep #: [id number] : 1980 F 44 From: Larissa Avila nd, [place] PCP: Dr. Coral Martinez MD Status: [facility] ER Study: Abdomen/Pelvis W IV Cont ONLY Date of Exam: Exam# [id number] Ordering Dr: Sam Combs DO PROCEDURE: ABDOMEN/PELVIS [...] abscess, ascites or free air. Reading Location: [id number] CC: Dr. Coral Martinez MD; Dr. Sam Combs DO Urology Nurse: Signed Normal [facility] Absolute lymphocyte countOrd ered By: Sam Combs on 10-14-2024 Lymphocytes Auto (Unsp spec) [#/Vol] 0.99 10*3/uL 0.83-4.51 [facility] Absolute neutrophil countOrd ered By: Sam Combs on 10-14-2024 Neutrophils (Bld) [#/Vol] 10.9 10*3/uL High 2.0-7.7 [facility] Anion gap in Serum or Plasma Ordered By: Sam Combs on 10-14-2024 Anion gap [Moles/Vol] 11 mmol/L 5-15 [facility] Automated lymphocyte count a s percentage of total leukocytesOrdered By: Sam Combs on 10-14-2024 Lymphocytes/100 WBC Auto (Unsp spec) 7.8 % Low 19-41 [facility] BUN/creatinine ratioOrdered By: Sam Combs on 10-14-2024 Urea nitrogen/Creatinine [Mass ratio] 5.5 mg/mg Low 10-20 [facility] Basophil percentageOrdered B y: Sam Combs on 10-14-2024 Basophils/100 WBC (Bld) 0.3 % 0-1 [facility] Bilirubin Test strip Ql (U)O rdered By: Sam Combs on 10-14-2024 Bilirubin Ql (U) 1 mg/dL High Negative [facility] Comment on above: COLOR OF URINE MAY A FFECT DIPSTICK RESULTS. Bilirubin, totalOrdered By: Sam Combs on 10-14-2024 Bilirubin [Mass/Vol] 0.47 mg/dL 0.00-1.30 [facility] CBC W/Diff, Automatedon Absolute Lymph 0.99 X10 3/uL Normal 0.83-4.51 [facility] Comment on above: Performed By: #### L 500.4050, L501.2450, L100.0100 #### [facility] [address] [place], [address] Absolute Neut 10.9 X10 3/uL High 2.0-7.7 [facility] Comment on above: Performed By: #### L 500.4050, L501.2450, L100.0100 #### [facility] [address] [place], [address] Basophils/100 WBC (Bld) 0.3 % Normal 0-1 [facility] Comment on above: Performed By: #### L 500.4050, L501.2450, L100.0100 #### [facility] [address] [place], [address] Eosinophils/100 WBC (Bld) 0.2 % Normal 0-5 [facility] Comment on above: Performed By: #### L 500.4050, L501.2450, L100.0100 #### [facility] [address] [place], [address] Erythrocyte distribution width (RBC) [Ratio] 13.2 % Normal 11.6-14.6 [facility] Comment on above: Performed By: #### L 500.4050, L501.2450, L100.0100 #### [facility] [address] [place], [address] Hematocrit (Bld) [Volume fraction] 42.6 % Normal 37-47 [facility] Comment on above: Performed By: #### L 500.4050, L501.2450, L100.0100 #### [facility] [address] [place], [address] Hemoglobin (Bld) [Mass/Vol] 14.2 g/dL Normal 12.0-15.0 [facility] Comment on above: Performed By: #### L 500.4050, L501.2450, L100.0100 #### [facility] [address] [place], [address] IG% 0.500 Normal 0.0-0.9 [facility] Comment on above: Result Comment: IG% - Immature Granulocytes (promyelocytes, myelocytes and metamyelocytes) > 1% indicates that a LEFT SHIFT is Present. Performed By: #### L 500.4050, L501.2450, L100.0100 #### [facility] [address] [place], [address] Lymphocytes/100 WBC (Bld) 7.8 % Low 19-41 [facility] Comment on above: Performed By: #### L 500.4050, L501.2450, L100.0100 #### [facility] [address] [place], [address] MCH (RBC) [Entitic mass] 31.5 pg Normal 27.0-32.0 [facility] Comment on above: Performed By: #### L 500.4050, L501.2450, L100.0100 #### [facility] [address] [place], [address] MCHC (RBC) [Mass/Vol] 33.3 g/dL Normal 32-36 [facility] Comment on above: Performed By: #### L 500.4050, L501.2450, L100.0100 #### [facility] [address] [place], [address] MCV (RBC) [Entitic vol] 94.5 fL Normal 81-99 [facility] Comment on above: Performed By: #### L 500.4050, L501.2450, L100.0100 #### [facility] [address] [place], [address] Monocytes/100 WBC (Bld) 6.3 % Normal 0-10 [facility] Comment on above: Performed By: #### L 500.4050, L501.2450, L100.0100 #### [facility] [address] [place], [address] Neutrophils/100 WBC (Bld) 84.9 % High 47-70 [facility] Comment on above: Performed By: #### L 500.4050, L501.2450, L100.0100 #### [facility] [address] [place], [address] Nucleated RBC (Bld) [#/Vol] 0 10*3/uL Normal 0-5 [facility] Comment on above: Performed By: #### L 500.4050, L501.2450, L100.0100 #### [facility] [address] [place], [address] Platelet mean volume (Bld) [Entitic vol] 10.1 fL Normal 6.2-12.0 [facility] Comment on above: Performed By: #### L 500.4050, L501.2450, L100.0100 #### [facility] [address] [place], [address] Platelets (Bld) [#/Vol] 246 10*3/uL Normal 150-450 [facility] Comment on above: Performed By: #### L 500.4050, L501.2450, L100.0100 #### [facility] [address] [place], [address] RBC (Bld) [#/Vol] 4.51 10*6/uL Normal 4.2-5.4 [facility] Comment on above: Performed By: #### L 500.4050, L501.2450, L100.0100 #### [facility] [address] [place], [address] RDW SD 45.7 fl High 35.1-43.9 [facility] Comment on above: Performed By: #### L 500.4050, L501.2450, L100.0100 #### [facility] [address] [place], [address] WBC (Bld) [#/Vol] 12.8 10*3/uL High 4.4-11.0 [facility] Comment on above: Performed By: #### L 500.4050, L501.2450, L100.0100 #### [facility] [address] [place], [address] CDIFF (PCR)on 10-14-2024 CDIFF Pending [phone] NAP1-B1 Presumptive Negative *for epidemiolologic???use C. Diff PCR Negative- No toxigenic C. Diff Detected Normal [facility] Comment on above: Performed By: #### L 500.4050, L501.2450, L100.0100 #### [facility] [address] [place], [address] Carbon dioxide, total [Moles /volume] in Central venous bloodOrdered By: Sam Combs on 10-14-2024 CO2 [Moles/Vol] 24.5 mmol/L 21.0-32.0 [facility] Chloride assayOrdered By: Billy Combs on 10-14-2024 Chloride [Moles/Vol] 104 mmol/L 98-108 [facility] Clostridium difficile detect ion by polymerase chain reactionOrdered By: Sam Combs on 10-14-2024 C. difficile DNA NATHAN+probe Ql (Unsp spec) [facility] Comprehensive Metabolic Prof ilon 10-14-2024 Albumin [Mass/Vol] 4.6 g/dL Normal 3.5-5.0 [facility] Comment on above: Performed By: #### L 500.4050, L501.2450, L100.0100 #### [facility] [address] [place], [address] Albumin/Globulin [Mass ratio] 1.5 {ratio} Normal 0.9-2.4 [facility] Comment on above: Performed By: #### L 500.4050, L501.2450, L100.0100 #### [facility] [address] [place], [address] ALK PHOS 64 U/L Normal 35-104 [facility] Comment on above: Performed By: #### L 500.4050, L501.2450, L100.0100 #### [facility] [address] [place], [address] ALT [Catalytic activity/Vol] 30 U/L Normal <=34 [facility] Comment on above: Performed By: #### L 500.4050, L501.2450, L100.0100 #### [facility] [address] [place], [address] AST [Catalytic activity/Vol] 24 U/L Normal <=31 [facility] Comment on above: Performed By: #### L 500.4050, L501.2450, L100.0100 #### [facility] [address] [place], [address] Bilirubin [Mass/Vol] 0.47 mg/dL Normal 0.00-1.30 [facility] Comment on above: Performed By: #### L 500.4050, L501.2450, L100.0100 #### [facility] [address] [place], [address] BUN/CRE 5.5 RATIO Low 10-20 [facility] Comment on above: Performed By: #### L 500.4050, L501.2450, L100.0100 #### [facility] [address] [place], [address] Calcium [Mass/Vol] 9.6 mg/dL Normal 7.6-11.0 [facility] Comment on above: Performed By: #### L 500.4050, L501.2450, L100.0100 #### [facility] [address] [place], [address] Chloride [Moles/Vol] 104 mmol/L Normal 98-108 [facility] Comment on above: Performed By: #### L 500.4050, L501.2450, L100.0100 #### [facility] [address] [place], [address] CO2 [Moles/Vol] 24.5 mmol/L Normal 21.0-32.0 [facility] Comment on above: Performed By: #### L 500.4050, L501.2450, L100.0100 #### [facility] [address] [place], [address] Creatinine [Mass/Vol] 0.82 mg/dL Normal 0.70-1.20 [facility] Comment on above: Performed By: #### L 500.4050, L501.2450, L100.0100 #### [facility] [address] [place], [address] ECRCL 93.68 ml/min Normal 50-250 [facility] Comment on above: Performed By: #### L 500.4050, L501.2450, L100.0100 #### [facility] [address] [place], [address] GAP 11 Normal 5-15 [facility] Comment on above: Performed By: #### L 500.4050, L501.2450, L100.0100 #### [facility] [address] [place], [address] GFR/1.73 sq M.predicted among non-blacks MDRD (S/P/Bld) [Vol rate/Area] 91 mL/min/{1.73_m2} Normal >60 [facility] Comment on above: Result Comment: mL/m in/1.73m2 CKD-EPI Creatinine Equation (2020) Performed By: #### L 500.4050, L501.2450, L100.0100 #### [facility] [address] [place], [address] Globulin (S) [Mass/Vol] 3.0 g/dL Normal 2.2-4.2 [facility] Comment on above: Performed By: #### L 500.4050, L501.2450, L100.0100 #### [facility] [address] [place], [address] Glucose [Mass/Vol] 97 mg/dL Normal 70-99 [facility] Comment on above: Performed By: #### L 500.4050, L501.2450, L100.0100 #### [facility] [address] [place], [address] Potassium [Moles/Vol] 3.6 mmol/L Normal 3.3-5.1 [facility] Comment on above: Performed By: #### L 500.4050, L501.2450, L100.0100 #### [facility] [address] [place], [address] Sodium [Moles/Vol] 139 mmol/L Normal 133-145 [facility] Comment on above: Performed By: #### L 500.4050, L501.2450, L100.0100 #### [facility] [address] [place], [address] T PROT 7.5 g/dL Normal 5.9-8.4 [facility] Comment on above: Performed By: #### L 500.4050, L501.2450, L100.0100 #### [facility] [address] [place], [address] Urea nitrogen [Mass/Vol] 5 mg/dL Normal 4-19 [facility] Comment on above: Performed By: #### L 500.4050, L501.2450, L100.0100 #### [facility] [address] [place], [address] ENTERIC PATHOGEN PANEL STOOL on 10-14-2024 EP [...] VIBRIO Not Detected Yersinia Not Detected Normal [facility] Comment on above: Performed By: #### L 500.4050, L501.2450, L100.0100 #### [facility] [address] [place], [address] Emergency Department Summary on 10-14-2024 Emergency Department Summary [facility] Medical Records Department [address] [place] [address] Emergency Department Summary 10/14/24 MR#: [id number] Acct: [id number] Name: NGOC KAUFFMAN Rep #: [id number] : 1980 44 From: Sam Combs DO PCP: Dr. Coral Martinez MD Status:REG ER Location: ED HPI History of Present Illness Chief Complaint: GI Bleed [facility] Medical History Wears contact lenses Wears [...] reviewed, Vital signs reviewed Constitutional: please see [facility] HENT: MMM Eyes: Pupils equal round and [...] imaging studie (more content not included)... Normal [facility] Eosinophil percentageOrdered By: Sam Combs on 10-14-2024 Eosinophils/100 WBC (Bld) 0.2 % 0-5 [facility] Erythrocyte distribution wid th ratioOrdered By: Sam Combs on 10-14-2024 Erythrocyte distribution width (RBC) [Ratio] 13.2 % 11.6-14.6 [facility] Erythrocyte distribution wid th standard deviationOrdered By: Sam Combs on 10-14-2024 Erythrocyte distribution width (RBC) [Ratio] 45.7 fl High 35.1-43.9 [facility] Glomerular filtration rate ( GFR) estimation/1.73 sq m using serum, plasma, or whole bOrdered By: Sam Combs on 10-14-2024 GFR/1.73 sq M.predicted among non-blacks MDRD (S/P/Bld) [Vol rate/Area] 91 mL/min/{1.73_m2} >60 [facility] Comment on above: mL/min/1.73m2 CKD-EP I Creatinine Equation (2020) Hematocrit Auto (Bld) [Volum e fraction]Ordered By: Sam Combs on 10-14-2024 Hematocrit (Bld) [Volume fraction] 42.6 % 37-47 [facility] Hemoglobin measurementOrdere d By: Sam Combs on 10-14-2024 Hemoglobin (Bld) [Mass/Vol] 14.2 g/dL 12.0-15.0 [facility] Immature granulocytes/100 WB C Auto (Bld)Ordered By: Sam Combs on 10-14-2024 Immature granulocytes/100 WBC (Bld) 0.500 % 0.0-0.9 [facility] Comment on above: IG% - Immature Granu locytes (promyelocytes, myelocytes and metamyelocytes) > 1% indicates that a LEFT SHIFT is Present. Ketones Test strip Ql (U)Ord ered By: Sam Combs on 10-14-2024 Ketones Ql (U) 5 mg/dl High Negative [facility] - Chemistry and C hemistry - challengeOrdered By: Sam Combs on 10-14-2024 AST [Catalytic activity/Vol] 24 U/L <32 [facility] Lipaseon 10-14-2024 Lipase [Catalytic activity/Vol] 27 U/L Normal 13-75 [facility] Comment on above: Result Comment: Manas ro note: LIPASE revised reference range effective 22. New Lipase methodology. Expected to produce lower values than the previous assay method. NEW Reference Range: 13 - 75 U/L Performed By: #### L 500.4050, L501.2450, L100.0100 #### [facility] [address] [place], [address] Lipase measurementOrdered By : Sam Combs on 10-14-2024 Lipase [Catalytic activity/Vol] 27 U/L 13-75 [facility] Comment on above: Please note:LIPASE r evised reference range effective 22. New Lipase methodology. Expected to produce lower values than the previous assay method. NEW Reference Range: 13 - 75 U/L MCV (mean corpuscular volume ) determinationOrdered By: Sam Combs on 10-14-2024 MCV (RBC) [Entitic vol] 94.5 fL 81-99 [facility] Mean corpuscular hemoglobin (MCH) determinationOrdered By: Sam Combs on 10-14-2024 MCH (RBC) [Entitic mass] 31.5 pg 27.0-32.0 [facility] Mean corpuscular hemoglobin concentration (MCHC) determinationOrdered By: Sam Combs on 10-14-2024 MCHC (RBC) [Mass/Vol] 33.3 g/dL 32-36 [facility] Mean platelet volume determi nationOrdered By: Sam Combs on 10-14-2024 Platelet mean volume (Bld) [Entitic vol] 10.1 fL 6.2-12.0 [facility] Microscopic analysis of urin e for red blood cells (RBC)Ordered By: Sam Combs on 10-14-2024 Microscopic analysis of urine for red blood cells (RBC) 0 SEEN /hpf 0-5 [facility] Monocyte percentageOrdered B y: Sam Combs on 10-14-2024 Monocytes/100 WBC (Bld) 6.3 % 0-10 [facility] Mucus LM Ql (Urine sed)Order ed By: Sam Combs on 10-14-2024 Mucus Ql (Urine sed) 0 SEEN /hpf [facility] Neutrophil percentageOrdered By: Sam Combs on 10-14-2024 Neutrophils/100 WBC (Bld) 84.9 % High 47-70 [facility] Nitrite Test strip Ql (U)Ord ered By: Sam Combs on 10-14-2024 Nitrite Ql (U) Negative Negative [facility] Nucleated red blood cell per centageOrdered By: Sam Combs on 10-14-2024 Nucleated RBC/100 WBC (Bld) [Ratio] 0 % 0-5 [facility] Platelet countOrdered By: Billy Combs on 10-14-2024 Platelets (Bld) [#/Vol] 246 10*3/uL 150-450 [facility] Potassium measurement (mass/ volume)Ordered By: Sam Combs on 10-14-2024 Potassium (Unsp spec) [Mass/Vol] 3.6 mmol/L 3.3-5.1 [facility] ,Urineon 10-14-2024 Beta HCG ( test) Ql (U) Negative Normal [facility] Comment on above: Order Comment: COLOR OF URINE MAY AFFECT DIPSTICK RESULTS. Result Comment: Very dilute urine specimens, as indicated by a low specific gravity, may not contain internet sales representative levels of hCG. If is still suspected, a first morning urine specimen should be collected 48 hours later and tested. Performed By: #### L 500.4050, L501.2450, L100.0100 #### [facility] [address] [place], [address] Protein Test strip Ql (U)Ord ered By: Sam Combs on 10-14-2024 Protein Ql (U) 30 mg/dl High Negative [facility] RBC Auto (Bld) [#/Vol]Ordere d By: Sam Combs on 10-14-2024 RBC (Bld) [#/Vol] 4.51 10*6/uL 4.2-5.4 [facility] Serum creatinine measurement (mass/volume)Ordered By: Sam Combs on 10-14-2024 Creatinine [Mass/Vol] 0.82 mg/dL 0.70-1.20 [facility] Serum globulin measurementOr dered By: Sam Combs on 10-14-2024 Globulin (S) [Mass/Vol] 3.0 g/dL 2.2-4.2 [facility] Serum glucose measurement (m ass/volume)Ordered By: Sam Combs on 10-14-2024 Glucose [Mass/Vol] 97 mg/dL 70-99 [facility] Serum or plasma alanine jordan otransferase (ALT) measurementOrdered By: Sam Combs on 10-14-2024 ALT [Catalytic activity/Vol] 30 U/L <35 [facility] Serum or plasma albumin chey urement (mass/volume)Ordered By: Sam Combs on 10-14-2024 Albumin [Mass/Vol] 4.6 g/dL 3.5-5.0 [facility] Serum or plasma albumin/glob ulin mass ratioOrdered By: Sam Combs on 10-14-2024 Albumin/Globulin [Mass ratio] 1.5 {ratio} 0.9-2.4 [facility] Serum or plasma alkaline yony sphatase measurementOrdered By: Sam Combs on 10-14-2024 ALP [Catalytic activity/Vol] 64 U/L 35-104 [facility] Serum or plasma calcium chey urement (mass/volume)Ordered By: Sam Combs on 10-14-2024 Calcium [Mass/Vol] 9.6 mg/dL 7.6-11.0 [facility] Serum or plasma urea nitroge n measurement (mass/volume)Ordered By: Sam Combs on 10-14-2024 Urea nitrogen [Mass/Vol] 5 mg/dL 4-19 [facility] Sodium levelOrdered By: David Combs on 10-14-2024 Sodium [Moles/Vol] 139 mmol/L 133-145 [facility] Squamous epithelial cells de tection in urine sediment by light microscopyOrdered By: Sam Combs on 10-14-2024 Epithelial cells.squamous LM Ql (Urine sed) 0-5 SEEN /hpf 5-10 [facility] Total proteinOrdered By: Tana Combs on 10-14-2024 Protein [Mass/Vol] 7.5 g/dL 5.9-8.4 [facility] Transitional cells detection in urine sediment by light microscopyOrdered By: Sam Combs on 10-14-2024 Transitional cells LM Ql (Urine sed) 0-5 SEEN /hpf 0-5 [facility] Urinalysis, Completeon 10-14 BACTERIA 4+ /hpf Normal None Seen [facility] Comment on above: Order Comment: COLOR OF URINE MAY AFFECT DIPSTICK RESULTS.CLEAN CATCH Performed By: #### L 500.4050, L501.2450, L100.0100 #### [facility] [address] [place], [address] CAST,FINE GRAN 0-5 SEEN Normal 0-5 [facility] Comment on above: Order Comment: COLOR OF URINE MAY AFFECT DIPSTICK RESULTS.CLEAN CATCH Performed By: #### L 500.4050, L501.2450, L100.0100 #### [facility] [address] [place], [address] EPI,SQUAMOUS 0-5 SEEN Normal 5-10 [facility] Comment on above: Order Comment: COLOR OF URINE MAY AFFECT DIPSTICK RESULTS.CLEAN CATCH Performed By: #### L 500.4050, L501.2450, L100.0100 #### [facility] [address] [place], [address] EPI,TRANSITION 0-5 SEEN Normal 0-5 [facility] Comment on above: Order Comment: COLOR OF URINE MAY AFFECT DIPSTICK RESULTS.CLEAN CATCH Performed By: #### L 500.4050, L501.2450, L100.0100 #### [facility] [address] [place], [address] WBC 0-5 SEEN Normal 0-5 [facility] Comment on above: Order Comment: COLOR OF URINE MAY AFFECT DIPSTICK RESULTS.CLEAN CATCH Performed By: #### L 500.4050, L501.2450, L100.0100 #### [facility] [address] [place], [address] Mucus Ql (Urine sed) 0 SEEN Normal [facility] Comment on above: Order Comment: COLOR OF URINE MAY AFFECT DIPSTICK RESULTS.CLEAN CATCH Performed By: #### L 500.4050, L501.2450, L100.0100 #### [facility] [address] [place], [address] RBC 0 SEEN Normal 0-5 [facility] Comment on above: Order Comment: COLOR OF URINE MAY AFFECT DIPSTICK RESULTS.CLEAN CATCH Performed By: #### L 500.4050, L501.2450, L100.0100 #### [facility] [address] [place], [address] Urine clarityOrdered By: Tana Combs on 10-14-2024 Clarity (U) Cloudy Clear [facility] Urine color determinationOrd ered By: Sam Combs on 10-14-2024 Color (U) Genny Yellow [facility] Urine glucose detectionOrder ed By: Sam Combs on 10-14-2024 Glucose Ql (U) Normal mg/dl Normal [facility] Urine leukocyte esterase det ection by dipstickOrdered By: Sam Combs on 10-14-2024 Leukocyte esterase Test strip Ql (U) 25 /ul High Negative [facility] Urine pHOrdered By: Sam valentine on 10-14-2024 pH (U) 5.0 [pH] 5.0 - 8.0 [facility] Urine testOrdered By: Sam Combs on 10-14-2024 HCG ( test) Ql (U) Negative [facility] Comment on above: Very dilute urine sp ecimens, as indicated by a low specificgravity, may not contain internet sales representative levels of hCG. If is still suspected, a first morning urinespecimen should be collected 48 hours later and tested. Urine sediment bacteria coun t by microscopy (number/high power field)Ordered By: Sam Combs on 10-14-2024 Bacteria LM.HPF (Urine sed) [#/Area] 4 /[HPF] None Seen [facility] Urine sediment fine granular cast count by microscopy (number/low power field)Ordered By: Sam Combs on 10-14-2024 Fine Granular Casts LM.LPF (Urine sed) [#/Area] 0-5 SEEN /lpf 0-5 [facility] Urine specific gravity measu rementOrdered By: Sam Combs on 10-14-2024 Specific gravity (U) [Rel density] 1.030 1.002-1.030 [facility] Urine urobilinogen measureme ntOrdered By: Sam Combs on 10-14-2024 Urobilinogen Ql (U) Normal mg/dl Normal [facility] White blood cell (WBC) count Ordered By: Sam Combs on 10-14-2024 WBC (Bld) [#/Vol] 12.8 10*3/uL High 4.4-11.0 [facility] White blood cell countOrdere d By: Sam Combs on 10-14-2024 White blood cell count 0-5 SEEN /hpf 0-5 [facility] Abdomen Limitedon 09-26-2024 Abdomen Limited [facility] [address] [place] [address] Abdomen Limited MR#: [id number] Acct: [id number] Name: NGOC KAUFFMAN Rep #: [id number] : 1980 F 44 From: Skip branch MD PCP: Dr. Coral Martinez MD Status: REG CLI Study: Abdomen Limited Date of Exam: 09/26/24 Exam# [id number] Ordering Dr: Clarice Liriano MD PROCEDURE: ABDOMEN [...] right lobe of the liver. Reading Location: [place] [address] CC: Dr. Coral Martinez MD; Dr. Clarice Liriano MD Urology Nurse: Signed Normal [facility] Absolute lymphocyte countOrd ered By: Clarice Liriano on 09-13-2024 Lymphocytes Auto (Unsp spec) [#/Vol] 2.20 10*3/uL 0.83-4.51 [facility] Absolute neutrophil countOrd ered By: Clarice Liriano on 09-13-2024 Neutrophils (Bld) [#/Vol] 3.9 10*3/uL 2.0-7.7 [facility] Anion gap in Serum or Plasma Ordered By: Clarice Liriano on 09-13-2024 Anion gap [Moles/Vol] 12 mmol/L 5-15 [facility] Automated lymphocyte count a s percentage of total leukocytesOrdered By: Clarice Liriano on 09-13-2024 Lymphocytes/100 WBC Auto (Unsp spec) 31.9 % 19-41 [facility] BUN/creatinine ratioOrdered By: Clarice Liriano on 09-13-2024 Urea nitrogen/Creatinine [Mass ratio] 7.7 mg/mg Low 10-20 [facility] Basophil percentageOrdered B y: Clarice Liriano on 09-13-2024 Basophils/100 WBC (Bld) 0.6 % 0-1 [facility] Bilirubin, totalOrdered By: Clarice Liriano on 09-13-2024 Bilirubin [Mass/Vol] 0.31 mg/dL 0.00-1.30 [facility] CBC W/Diff, Automatedon 05-0 7-2024 Absolute Lymph 2.20 X10 3/uL Normal 0.83-4.51 [facility] Comment on above: Performed By: #### L 500.4050, L501.2450, L100.0100 #### [facility] [address] [place], [address] Absolute Neut 3.9 X10 3/uL Normal 2.0-7.7 [facility] Comment on above: Performed By: #### L 500.4050, L501.2450, L100.0100 #### [facility] [address] [place], [address] Basophils/100 WBC (Bld) 0.6 % Normal 0-1 [facility] Comment on above: Performed By: #### L 500.4050, L501.2450, L100.0100 #### [facility] [address] [place], [address] Eosinophils/100 WBC (Bld) 1.2 % Normal 0-5 [facility] Comment on above: Performed By: #### L 500.4050, L501.2450, L100.0100 #### [facility] [address] [place], [address] Erythrocyte distribution width (RBC) [Ratio] 13.1 % Normal 11.6-14.6 [facility] Comment on above: Performed By: #### L 500.4050, L501.2450, L100.0100 #### [facility] [address] [place], [address] Hematocrit (Bld) [Volume fraction] 41.5 % Normal 37-47 [facility] Comment on above: Performed By: #### L 500.4050, L501.2450, L100.0100 #### [facility] [address] [place], [address] Hemoglobin (Bld) [Mass/Vol] 13.8 g/dL Normal 12.0-15.0 [facility] Comment on above: Performed By: #### L 500.4050, L501.2450, L100.0100 #### [facility] [address] [place], [address] IG% 0.100 Normal 0.0-0.9 [facility] Comment on above: Result Comment: IG% - Immature Granulocytes (promyelocytes, myelocytes and metamyelocytes) > 1% indicates that a LEFT SHIFT is Present. Performed By: #### L 500.4050, L501.2450, L100.0100 #### [facility] [address] [place], [address] Lymphocytes/100 WBC (Bld) 31.9 % Normal 19-41 [facility] Comment on above: Performed By: #### L 500.4050, L501.2450, L100.0100 #### [facility] [address] [place], [address] MCH (RBC) [Entitic mass] 31.4 pg Normal 27.0-32.0 [facility] Comment on above: Performed By: #### L 500.4050, L501.2450, L100.0100 #### [facility] [address] [place], [address] MCHC (RBC) [Mass/Vol] 33.3 g/dL Normal 32-36 [facility] Comment on above: Performed By: #### L 500.4050, L501.2450, L100.0100 #### [facility] [address] [place], [address] MCV (RBC) [Entitic vol] 94.5 fL Normal 81-99 [facility] Comment on above: Performed By: #### L 500.4050, L501.2450, L100.0100 #### [facility] [address] [place], [address] Monocytes/100 WBC (Bld) 10.0 % Normal 0-10 [facility] Comment on above: Performed By: #### L 500.4050, L501.2450, L100.0100 #### [facility] [address] [place], [address] Neutrophils/100 WBC (Bld) 56.2 % Normal 47-70 [facility] Comment on above: Performed By: #### L 500.4050, L501.2450, L100.0100 #### [facility] [address] [place], [address] Nucleated RBC (Bld) [#/Vol] 0 10*3/uL Normal 0-5 [facility] Comment on above: Performed By: #### L 500.4050, L501.2450, L100.0100 #### [facility] [address] [place], [address] Platelet mean volume (Bld) [Entitic vol] 10.6 fL Normal 6.2-12.0 [facility] Comment on above: Performed By: #### L 500.4050, L501.2450, L100.0100 #### [facility] [address] [place], [address] Platelets (Bld) [#/Vol] 243 10*3/uL Normal 150-450 [facility] Comment on above: Performed By: #### L 500.4050, L501.2450, L100.0100 #### [facility] [address] [place], [address] RBC (Bld) [#/Vol] 4.39 10*6/uL Normal 4.2-5.4 [facility] Comment on above: Performed By: #### L 500.4050, L501.2450, L100.0100 #### [facility] [address] [place], [address] RDW SD 45.3 fl High 35.1-43.9 [facility] Comment on above: Performed By: #### L 500.4050, L501.2450, L100.0100 #### [facility] [address] [place], [address] WBC (Bld) [#/Vol] 6.9 10*3/uL Normal 4.4-11.0 [facility] Comment on above: Performed By: #### L 500.4050, L501.2450, L100.0100 #### [facility] [address] [place], [address] Carbon dioxide, total [Moles /volume] in Central venous bloodOrdered By: Clarice Liriano on 09-13-2024 CO2 [Moles/Vol] 22.0 mmol/L 21.0-32.0 [facility] Chloride assayOrdered By: Lynn Liriano on 09-13-2024 Chloride [Moles/Vol] 102 mmol/L 98-108 [facility] Comprehensive Metabolic Prof ilon 09-13-2024 Albumin [Mass/Vol] 4.3 g/dL Normal 3.5-5.0 [facility] Comment on above: Performed By: #### L 500.4050, L501.2450, L100.0100 #### [facility] [address] [place], [address] Albumin/Globulin [Mass ratio] 1.4 {ratio} Normal 0.9-2.4 [facility] Comment on above: Performed By: #### L 500.4050, L501.2450, L100.0100 #### [facility] [address] [place], [address] ALK PHOS 58 U/L Normal 35-104 [facility] Comment on above: Performed By: #### L 500.4050, L501.2450, L100.0100 #### [facility] [address] [place], [address] ALT [Catalytic activity/Vol] 38 U/L High <=34 [facility] Comment on above: Performed By: #### L 500.4050, L501.2450, L100.0100 #### [facility] [address] [place], [address] AST [Catalytic activity/Vol] 23 U/L Normal <=31 [facility] Comment on above: Performed By: #### L 500.4050, L501.2450, L100.0100 #### [facility] [address] [place], [address] Bilirubin [Mass/Vol] 0.31 mg/dL Normal 0.00-1.30 [facility] Comment on above: Performed By: #### L 500.4050, L501.2450, L100.0100 #### [facility] [address] [place], [address] BUN/CRE 7.7 RATIO Low 10-20 [facility] Comment on above: Performed By: #### L 500.4050, L501.2450, L100.0100 #### [facility] [address] [place], [address] Calcium [Mass/Vol] 9.6 mg/dL Normal 7.6-11.0 [facility] Comment on above: Performed By: #### L 500.4050, L501.2450, L100.0100 #### [facility] [address] [place], [address] Chloride [Moles/Vol] 102 mmol/L Normal 98-108 [facility] Comment on above: Performed By: #### L 500.4050, L501.2450, L100.0100 #### [facility] [address] [place], [address] CO2 [Moles/Vol] 22.0 mmol/L Normal 21.0-32.0 [facility] Comment on above: Performed By: #### L 500.4050, L501.2450, L100.0100 #### [facility] [address] [place], [address] Creatinine [Mass/Vol] 0.82 mg/dL Normal 0.70-1.20 [facility] Comment on above: Performed By: #### L 500.4050, L501.2450, L100.0100 #### [facility] [address] [place], [address] GAP 12 Normal 5-15 [facility] Comment on above: Performed By: #### L 500.4050, L501.2450, L100.0100 #### [facility] [address] [place], [address] GFR/1.73 sq M.predicted among non-blacks MDRD (S/P/Bld) [Vol rate/Area] 90 mL/min/{1.73_m2} Normal >60 [facility] Comment on above: Result Comment: mL/m in/1.73m2 CKD-EPI Creatinine Equation (2020) Performed By: #### L 500.4050, L501.2450, L100.0100 #### [facility] [address] [place], [address] Globulin (S) [Mass/Vol] 3.0 g/dL Normal 2.2-4.2 [facility] Comment on above: Performed By: #### L 500.4050, L501.2450, L100.0100 #### [facility] [address] [place], [address] Glucose [Mass/Vol] 103 mg/dL High 70-99 [facility] Comment on above: Performed By: #### L 500.4050, L501.2450, L100.0100 #### [facility] [address] [place], [address] Potassium [Moles/Vol] 4.0 mmol/L Normal 3.3-5.1 [facility] Comment on above: Performed By: #### L 500.4050, L501.2450, L100.0100 #### [facility] [address] [place], [address] Sodium [Moles/Vol] 136 mmol/L Normal 133-145 [facility] Comment on above: Performed By: #### L 500.4050, L501.2450, L100.0100 #### [facility] [address] [place], [address] T PROT 7.3 g/dL Normal 5.9-8.4 [facility] Comment on above: Performed By: #### L 500.4050, L501.2450, L100.0100 #### [facility] [address] [place], [address] Urea nitrogen [Mass/Vol] 6 mg/dL Normal 4-19 [facility] Comment on above: Performed By: #### L 500.4050, L501.2450, L100.0100 #### [facility] [address] [place], [address] Eosinophil percentageOrdered By: Clarice Liriano on 09-13-2024 Eosinophils/100 WBC (Bld) 1.2 % 0-5 [facility] Erythrocyte distribution wid th ratioOrdered By: Clarice Liriano on 09-13-2024 Erythrocyte distribution width (RBC) [Ratio] 13.1 % 11.6-14.6 [facility] Erythrocyte distribution wid th standard deviationOrdered By: Clarice Liriano on 09-13-2024 Erythrocyte distribution width (RBC) [Ratio] 45.3 fl High 35.1-43.9 [facility] Glomerular filtration rate ( GFR) estimation/1.73 sq m using serum, plasma, or whole bOrdered By: Clarice Liriano on 09-13-2024 GFR/1.73 sq M.predicted among non-blacks MDRD (S/P/Bld) [Vol rate/Area] 90 mL/min/{1.73_m2} >60 [facility] Comment on above: mL/min/1.73m2 CKD-EP I Creatinine Equation (2020) Hematocrit Auto (Bld) [Volum e fraction]Ordered By: Clarice Liriano on 09-13-2024 Hematocrit (Bld) [Volume fraction] 41.5 % 37-47 [facility] Hemoglobin measurementOrdere d By: Clarice Liriano on 09-13-2024 Hemoglobin (Bld) [Mass/Vol] 13.8 g/dL 12.0-15.0 [facility] Immature granulocytes/100 WB C Auto (Bld)Ordered By: Clarice Liriano on 09-13-2024 Immature granulocytes/100 WBC (Bld) 0.100 % 0.0-0.9 [facility] Comment on above: IG% - Immature Granu locytes (promyelocytes, myelocytes and metamyelocytes) > 1% indicates that a LEFT SHIFT is Present. Laboratory - Chemistry and C hemistry - challengeOrdered By: Clarice Liriano on 09-13-2024 AST [Catalytic activity/Vol] 23 U/L <32 [facility] MCV (mean corpuscular volume ) determinationOrdered By: Clarice Liriano 09-13-2024 MCV (RBC) [Entitic vol] 94.5 fL 81-99 [facility] Mean corpuscular hemoglobin (MCH) determinationOrdered By: Clarice Liriano on 09-13-2024 MCH (RBC) [Entitic mass] 31.4 pg 27.0-32.0 [facility] Mean corpuscular hemoglobin concentration (MCHC) determinationOrdered By: Clarice Liriano on 09-13-2024 MCHC (RBC) [Mass/Vol] 33.3 g/dL 32-[address] [facility] [address] Mean platelet volume determi nationOrdered By: Clarice Liriano on 09-13-2024 Platelet mean volume (Bld) [Entitic vol] 10.6 fL 6.2-12.0 [facility] Monocyte percentageOrdered B y: Clarice Liriano on 09-13-2024 Monocytes/100 WBC (Bld) 10.0 % 0-10 [facility] Neutrophil percentageOrdered By: Clarice Liriano on 09-13-2024 Neutrophils/100 WBC (Bld) 56.2 % 47-70 [facility] Nucleated red blood cell per centageOrdered By: Clarice Liriano on 09-13-2024 Nucleated RBC/100 WBC (Bld) [Ratio] 0 % 0-5 [facility] Platelet countOrdered By: Lynn Liriano on 09-13-2024 Platelets (Bld) [#/Vol] 243 10*3/uL 150-450 [facility] Potassium measurement (mass/ volume)Ordered By: Clarice Liriano on 09-13-2024 Potassium (Unsp spec) [Mass/Vol] 4.0 mmol/L 3.3-5.1 [facility] RBC Auto (Bld) [#/Vol]Ordere d By: Clarice Liriano on 09-13-2024 RBC (Bld) [#/Vol] 4.39 10*6/uL 4.2-5.4 [facility] Serum creatinine measurement (mass/volume)Ordered By: Clarice Liriano on 09-13-2024 Creatinine [Mass/Vol] 0.82 mg/dL 0.70-1.20 [facility] Serum globulin measurementOr dered By: Clarice Liriano on 09-13-2024 Globulin (S) [Mass/Vol] 3.0 g/dL 2.2-4.2 [facility] Serum glucose measurement (m ass/volume)Ordered By: Clarice Liriano on 09-13-2024 Glucose [Mass/Vol] 103 mg/dL High 70-99 [facility] Serum or plasma alanine jordan otransferase (ALT) measurementOrdered By: Clarice Liriano on 09-13-2024 ALT [Catalytic activity/Vol] 38 U/L High <35 [facility] Serum or plasma albumin chey urement (mass/volume)Ordered By: Clarice Liriano on 09-13-2024 Albumin [Mass/Vol] 4.3 g/dL 3.5-5.0 [facility] Serum or plasma albumin/glob ulin mass ratioOrdered By: Clarice Liriano on 09-13-2024 Albumin/Globulin [Mass ratio] 1.4 {ratio} 0.9-2.4 [facility] Serum or plasma alkaline yony sphatase measurementOrdered By: Clarice Liriano on 09-13-2024 ALP [Catalytic activity/Vol] 58 U/L 35-104 [facility] Serum or plasma calcium chey urement (mass/volume)Ordered By: Clarice Liriano on 09-13-2024 Calcium [Mass/Vol] 9.6 mg/dL 7.6-11.0 [facility] Serum or plasma urea nitroge n measurement (mass/volume)Ordered By: Clarice Liriano on 09-13-2024 Urea nitrogen [Mass/Vol] 6 mg/dL 4-19 [facility] Sodium levelOrdered By: Elana Liriano on 09-13-2024 Sodium [Moles/Vol] 136 mmol/L 133-145 [facility] Total proteinOrdered By: Jersey Liriano on 09-13-2024 Protein [Mass/Vol] 7.3 g/dL 5.9-8.4 [facility] White blood cell (WBC) count Ordered By: Clarice Liriano on 09-13-2024 WBC (Bld) [#/Vol] 6.9 10*3/uL 4.4-11.0 [facility] Absolute lymphocyte countOrd ered By: Coral Martinez on 07-22-2024 Lymphocytes Auto (Unsp spec) [#/Vol] 1.80 10*3/uL 0.83-4.51 [facility] Absolute neutrophil countOrd ered By: Coral Martinez on 07-22-2024 Neutrophils (Bld) [#/Vol] 3.8 10*3/uL 2.0-7.7 [facility] Anion gap in Serum or Plasma Ordered By: Coral Martinez on 07-22-2024 Anion gap [Moles/Vol] 10 mmol/L 5-15 [facility] Automated lymphocyte count a s percentage of total leukocytesOrdered By: Coral Martinez on 07-22-2024 Lymphocytes/100 WBC Auto (Unsp spec) 28.3 % 19-41 [facility] BUN/creatinine ratioOrdered By: Coral Martinez on 07-22-2024 Urea nitrogen/Creatinine [Mass ratio] 10.6 mg/mg 10-20 [facility] Basophil percentageOrdered B y: Coral Martinez on 07-22-2024 Basophils/100 WBC (Bld) 0.9 % 0-1 [facility] Bilirubin, totalOrdered By: Coral Martinez on 07-22-2024 Bilirubin [Mass/Vol] 0.21 mg/dL 0.00-1.30 [facility] CBC W/Diff, Automatedon 07-08 Absolute Lymph 1.80 X10 3/uL Normal 0.83-4.51 [facility] Comment on above: Order Comment: Order Date: 07/11/24Order Info: [id number] - CBCD Performed By: #### L 500.4050, L501.2450, L100.0100 #### [facility] [address] [place], [address] Absolute Neut 3.8 X10 3/uL Normal 2.0-7.7 [facility] Comment on above: Order Comment: Order Date: 07/11/24Order Info: [id number] - CBCD Performed By: #### L 500.4050, L501.2450, L100.0100 #### [facility] [address] [place], [address] Basophils/100 WBC (Bld) 0.9 % Normal 0-1 [facility] Comment on above: Order Comment: Order Date: 07/11/24Order Info: [id number] - CBCD Performed By: #### L 500.4050, L501.2450, L100.0100 #### [facility] [address] [place], [address] Eosinophils/100 WBC (Bld) 1.7 % Normal 0-5 [facility] Comment on above: Order Comment: Order Date: 07/11/24Order Info: [id number] - CBCD Performed By: #### L 500.4050, L501.2450, L100.0100 #### [facility] [address] [place], [address] Erythrocyte distribution width (RBC) [Ratio] 13.7 % Normal 11.6-14.6 [facility] Comment on above: Order Comment: Order Date: 07/11/24Order Info: [id number] - CBCD Performed By: #### L 500.4050, L501.2450, L100.0100 #### [facility] [address] [place], [address] Hematocrit (Bld) [Volume fraction] 38.7 % Normal 37-47 [facility] Comment on above: Order Comment: Order Date: 07/11/24Order Info: [id number]- - CBCD Performed By: #### L 500.4050, L501.2450, L100.0100 #### [facility] [address] [place], [address] Hemoglobin (Bld) [Mass/Vol] 12.7 g/dL Normal 12.0-15.0 [facility] Comment on above: Order Comment: Order Date: 07/11/24Order Info: [id number]- - CBCD Performed By: #### L 500.4050, L501.2450, L100.0100 #### [facility] [address] [place], [address] IG% 0.300 Normal 0.0-0.9 [facility] Comment on above: Order Comment: Order Date: 07/11/24Order Info: [id number] - CBCD Result Comment: IG% - Immature Granulocytes (promyelocytes, myelocytes and metamyelocytes) > 1% indicates that a LEFT SHIFT is Present. Performed By: #### L 500.4050, L501.2450, L100.0100 #### [facility] [address] [place], [address] Lymphocytes/100 WBC (Bld) 28.3 % Normal 19-41 [facility] Comment on above: Order Comment: Order Date: 07/11/24Order Info: [id number] - CBCD Performed By: #### L 500.4050, L501.2450, L100.0100 #### [facility] [address] [place], [address] MCH (RBC) [Entitic mass] 32.2 pg High 27.0-32.0 [facility] Comment on above: Order Comment: Order Date: 07/11/24Order Info: [id number] - CBCD Performed By: #### L 500.4050, L501.2450, L100.0100 #### [facility] [address] [place], [address] MCHC (RBC) [Mass/Vol] 32.8 g/dL Normal 32-36 [facility] Comment on above: Order Comment: Order Date: 07/11/24Order Info: [id number] - CBCD Performed By: #### L 500.4050, L501.2450, L100.0100 #### [facility] [address] [place], [address] MCV (RBC) [Entitic vol] 98.2 fL Normal 81-99 [facility] Comment on above: Order Comment: Order Date: 07/11/24Order Info: [id number] - CBCD Performed By: #### L 500.4050, L501.2450, L100.0100 #### [facility] [address] [place], [address] Monocytes/100 WBC (Bld) 9.1 % Normal 0-10 [facility] Comment on above: Order Comment: Order Date: 07/11/24Order Info: [id number] - CBCD Performed By: #### L 500.4050, L501.2450, L100.0100 #### [facility] [address] [place], [address] Neutrophils/100 WBC (Bld) 59.7 % Normal 47-70 [facility] Comment on above: Order Comment: Order Date: 07/11/24Order Info: [id number] - CBCD Performed By: #### L 500.4050, L501.2450, L100.0100 #### [facility] [address] [place], [address] Nucleated RBC (Bld) [#/Vol] 0 10*3/uL Normal 0-5 [facility] Comment on above: Order Comment: Order Date: 07/11/24Order Info: [id number] - CBCD Performed By: #### L 500.4050, L501.2450, L100.0100 #### [facility] [address] [place], [address] Platelet mean volume (Bld) [Entitic vol] 9.6 fL Normal 6.2-12.0 [facility] Comment on above: Order Comment: Order Date: 07/11/24Order Info: [id number] - CBCD Performed By: #### L 500.4050, L501.2450, L100.0100 #### [facility] [address] [place], [address] Platelets (Bld) [#/Vol] 240 10*3/uL Normal 150-450 [facility] Comment on above: Order Comment: Order Date: 07/11/24Order Info: [id number] - CBCD Performed By: #### L 500.4050, L501.2450, L100.0100 #### [facility] [address] [place], [address] RBC (Bld) [#/Vol] 3.94 10*6/uL Low 4.2-5.4 [facility] Comment on above: Order Comment: Order Date: 07/11/24Order Info: [id number] - CBCD Performed By: #### L 500.4050, L501.2450, L100.0100 #### [facility] [address] [address] [place], [place], [id number] RDW SD 49.8 fl High 35.1-43.9 [facility] Comment on above: Order Comment: Order Date: 07/11/24Order Info: [id number] - CBCD Performed By: #### L 500.4050, L501.2450, L100.0100 #### [facility] [address] [place], [address] WBC (Bld) [#/Vol] 6.4 10*3/uL Normal 4.4-11.0 [facility] Comment on above: Order Comment: Order Date: 07/11/24Order Info: [id number] - CBCD Performed By: #### L 500.4050, L501.2450, L100.0100 #### [facility] [address] [place], [address] Calculated very low density lipoprotein (VLDL) cholesterol measurementOrdered By: Coral Martinez on 07-22-2024 Calculated very low density lipoprotein (VLDL) cholesterol measurement 17 mg/dL 5-40 [facility] VLDL Cholesterol 17 mg/dL 5-40 [facility] Carbon dioxide, total [Moles /volume] in Central venous bloodOrdered By: Coral Martinez on 07-22-2024 CO2 [Moles/Vol] 24.0 mmol/L 21.0-32.0 [facility] Chloride assayOrdered By: Es Martinez on 07-22-2024 Chloride [Moles/Vol] 103 mmol/L 98-108 [facility] Comprehensive Metabolic Prof ilon 07-22-2024 Albumin [Mass/Vol] 4.1 g/dL Normal 3.5-5.0 [facility] Comment on above: Order Comment: Order Date: 07/11/24Order Info: [id number] - CMPOrder Info: [id number] - LIPIDOrder Info: [id number] - TSH Performed By: #### L 500.4050, L501.2450, L100.0100 #### [facility] [address] [place], [address] Albumin/Globulin [Mass ratio] 1.4 {ratio} Normal 0.9-2.4 [facility] Comment on above: Order Comment: Order Date: 07/11/24Order Info: [id number] - CMPOrder Info: [id number] - LIPIDOrder Info: [id number] - TSH Performed By: #### L 500.4050, L501.2450, L100.0100 #### [facility] [address] [place], [address] ALK PHOS 70 U/L Normal 35-104 [facility] Comment on above: Order Comment: Order Date: 07/11/24Order Info: [id number] - CMPOrder Info: [id number] - LIPIDOrder Info: [id number] - TSH Performed By: #### L 500.4050, L501.2450, L100.0100 #### [facility] [address] [place], [address] ALT [Catalytic activity/Vol] 35 U/L Normal <=34 [facility] Comment on above: Order Comment: Order Date: 07/11/24Order Info: [id number] - CMPOrder Info: [id number] - LIPIDOrder Info: [id number] - TSH Performed By: #### L 500.4050, L501.2450, L100.0100 #### [facility] [address] [place], [address] AST [Catalytic activity/Vol] 32 U/L Normal <=31 [facility] Comment on above: Order Comment: Order Date: 07/11/24Order Info: [id number] - CMPOrder Info: [id number] - LIPIDOrder Info: [id number] - TSH Performed By: #### L 500.4050, L501.2450, L100.0100 #### [facility] [address] [place], [address] Bilirubin [Mass/Vol] 0.21 mg/dL Normal 0.00-1.30 [facility] Comment on above: Order Comment: Order Date: 07/11/24Order Info: [id number] - CMPOrder Info: [id number] - LIPIDOrder Info: [id number] - TSH Performed By: #### L 500.4050, L501.2450, L100.0100 #### [facility] [address] [place], [address] BUN/CRE 10.6 RATIO Normal 10-20 [facility] Comment on above: Order Comment: Order Date: 07/11/24Order Info: [id number] - CMPOrder Info: [id number] - LIPIDOrder Info: [id number] - TSH Performed By: #### L 500.4050, L501.2450, L100.0100 #### [facility] [address] [place], [address] Calcium [Mass/Vol] 8.7 mg/dL Normal 7.6-11.0 [facility] Comment on above: Order Comment: Order Date: 07/11/24Order Info: [id number] - CMPOrder Info: [id number] - LIPIDOrder Info: [id number] - TSH Performed By: #### L 500.4050, L501.2450, L100.0100 #### [facility] [address] [place], [address] Chloride [Moles/Vol] 103 mmol/L Normal 98-108 [facility] Comment on above: Order Comment: Order Date: 07/11/24Order Info: [id number] - CMPOrder Info: [id number] - LIPIDOrder Info: [id number] - TSH Performed By: #### L 500.4050, L501.2450, L100.0100 #### [facility] [address] [place], [address] CO2 [Moles/Vol] 24.0 mmol/L Normal 21.0-32.0 [facility] Comment on above: Order Comment: Order Date: 07/11/24Order Info: [id number] - CMPOrder Info: [id number] - LIPIDOrder Info: [id number] - TSH Performed By: #### L 500.4050, L501.2450, L100.0100 #### [facility] [address] [place], [address] Creatinine [Mass/Vol] 0.83 mg/dL Normal 0.70-1.20 [facility] Comment on above: Order Comment: Order Date: 07/11/24Order Info: [id number] - CMPOrder Info: [id number] - LIPIDOrder Info: [id number] - TSH Performed By: #### L 500.4050, L501.2450, L100.0100 #### [facility] [address] [place], [address] GAP 10 Normal 5-15 [facility] Comment on above: Order Comment: Order Date: 07/11/24Order Info: [id number] - CMPOrder Info: [id number] - LIPIDOrder Info: [id number] - TSH Performed By: #### L 500.4050, L501.2450, L100.0100 #### [facility] [address] [place], [address] GFR/1.73 sq M.predicted among non-blacks MDRD (S/P/Bld) [Vol rate/Area] 89 mL/min/{1.73_m2} Normal >60 [facility] Comment on above: Order Comment: Order Date: 07/11/24Order Info: [id number] - CMPOrder Info: [id number] - LIPIDOrder Info: [id number] - TSH Result Comment: mL/m in/1.73m2 CKD-EPI Creatinine Equation (2020) Performed By: #### L 500.4050, L501.2450, L100.0100 #### [facility] [address] [place], [address] Globulin (S) [Mass/Vol] 2.9 g/dL Normal 2.2-4.2 [facility] Comment on above: Order Comment: Order Date: 07/11/24Order Info: [id number] - CMPOrder Info: [id number] - LIPIDOrder Info: [id number] - TSH Performed By: #### L 500.4050, L501.2450, L100.0100 #### [facility] [address] [place], [address] Glucose [Mass/Vol] 98 mg/dL Normal 70-99 [facility] Comment on above: Order Comment: Order Date: 07/11/24Order Info: [id number] - CMPOrder Info: [id number] - LIPIDOrder Info: [id number] - TSH Performed By: #### L 500.4050, L501.2450, L100.0100 #### [facility] [address] [place], [address] Potassium [Moles/Vol] 4.3 mmol/L Normal 3.3-5.1 [facility] Comment on above: Order Comment: Order Date: 07/11/24Order Info: [id number] - CMPOrder Info: [id number] - LIPIDOrder Info: [id number] - TSH Performed By: #### L 500.4050, L501.2450, L100.0100 #### [facility] [address] [place], [address] Sodium [Moles/Vol] 137 mmol/L Normal 133-145 [facility] Comment on above: Order Comment: Order Date: 07/11/24Order Info: [id number] - CMPOrder Info: [id number] - LIPIDOrder Info: [id number] - TSH Performed By: #### L 500.4050, L501.2450, L100.0100 #### [facility] [address] [place], [address] T PROT 6.9 g/dL Normal 5.9-8.4 [facility] Comment on above: Order Comment: Order Date: 07/11/24Order Info: [id number] - CMPOrder Info: [id number] - LIPIDOrder Info: [id number] - TSH Performed By: #### L 500.4050, L501.2450, L100.0100 #### [facility] [address] [place], [place], [address] Urea nitrogen [Mass/Vol] 9 mg/dL Normal 4-19 [facility] Comment on above: Order Comment: Order Date: 07/11/24Order Info: [id number] - CMPOrder Info: [id number] - LIPIDOrder Info: [id number] - TSH Performed By: #### L 500.4050, L501.2450, L100.0100 #### [facility] [address] [place], [address] Eosinophil percentageOrdered By: Coral Martinez on 07-22-2024 Eosinophils/100 WBC (Bld) 1.7 % 0-5 [facility] Erythrocyte distribution wid th ratioOrdered By: Coral Martinez on 07-22-2024 Erythrocyte distribution width (RBC) [Ratio] 13.7 % 11.6-14.6 [facility] Erythrocyte distribution wid th standard deviationOrdered By: Coral Martinez on 07-22-2024 Erythrocyte distribution width (RBC) [Entitic vol] 49.8 fL High 35.1-43.9 [facility] Erythrocyte distribution width (RBC) [Ratio] 49.8 fl High 35.1-43.9 [facility] GFR/1.73 sq M.predicted diana g non-blacks MDRD (S/P/Bld) [Vol rate/Area]Ordered By: Coral Martinez on 07-22-2024 Estimated GFR (MDRD) Non-Af Amer 89 >60 [facility] Comment on above: mL/min/1.73m2 CKD-EP I Creatinine Equation (2020) Glomerular filtration rate ( GFR) estimation/1.73 sq m using serum, plasma, or whole bOrdered By: Coral Martinez on 07-22-2024 GFR/1.73 sq M.predicted among non-blacks MDRD (S/P/Bld) [Vol rate/Area] 89 mL/min/{1.73_m2} >60 [facility] Comment on above: mL/min/1.73m2 CKD-EP I Creatinine Equation (2020) Hematocrit Auto (Bld) [Volum e fraction]Ordered By: Coral Martinez on 07-22-2024 Hematocrit (Bld) [Volume fraction] 38.7 % 37-47 [facility] Hemoglobin measurementOrdere d By: Coral Martinez on 07-22-2024 Hemoglobin (Bld) [Mass/Vol] 12.7 g/dL 12.0-15.0 [facility] Immature granulocytes/100 WB C Auto (Bld)Ordered By: Coral Martinez on 07-22-2024 Immature granulocytes/100 WBC (Bld) 0.300 % 0.0-0.9 [facility] Comment on above: IG% - Immature Granu locytes (promyelocytes, myelocytes and metamyelocytes) > 1% indicates that a LEFT SHIFT is Present. L506.1001on 07-22-2024 Vitamin D 25-OH 25.0 ng/mL Low 30-100 [facility] Comment on above: Order Comment: Order Date: 07/11/24Order Info: [id number] - CMPOrder Info: [id number] - LIPIDOrder Info: [id number] - TSH Result Comment: Linnea min D Status Deficiency: <20 ng/mL (50nmol/L) Insufficiency: 20-30 ng/mL (50-75 nmol/L) Sufficiency: 30-100 ng/mL (75-250 nmol/L) Toxicity: >100 ng/mL (>250 nmol/L) Performed By: #### L 500.4050, L501.2450, L100.0100 #### [facility] [address] [place], [address] LDL calc ser/plasOrdered By: Coral Martinez on 07-22-2024 Cholesterol in LDL [Mass/Vol] 76 mg/dL [facility] Comment on above: Yuskyvskwt=051-325 m g/dL & Higher Tdgt=894 mg/dL or greater LDL Cholesterol, Calculated 76 mg/dL [facility] Comment on above: Jgpvvoieur=427-337 m g/dL & Higher Gjyg=371 mg/dL or greater Laboratory - Chemistry and C hemistry - challengeOrdered By: Coral Martinez on 07-22-2024 AST [Catalytic activity/Vol] 32 U/L <32 [facility] Lipid Profileon 07-22-2024 CHOL:HDL 2.31 Normal [facility] Comment on above: Order Comment: Order Date: 07/11/24Order Info: [id number] - CMPOrder Info: [id number] - LIPIDOrder Info: [id number] - TSH Performed By: #### L 500.4050, L501.2450, L100.0100 #### [facility] [address] [place], [place], [id number]) Cholesterol [Mass/Vol] 163 mg/dL Normal <=200 [facility] Comment on above: Order Comment: Order Date: 07/11/24Order Info: [id number] - CMPOrder Info: [id number] - LIPIDOrder Info: [id number] - TSH Result Comment: Chol esterol level, Desirable <200 mg/dL Borderline high cholesterol 200-239 mg/dL High cholesterol >=240 mg/dL Recommendations of the NCEP Adult Treatment Panel for the following risk-cutoff thresholds for the [place] population. Performed By: #### L 500.4050, L501.2450, L100.0100 #### [facility] [address] [place], [address] Cholesterol in HDL [Mass/Vol] 71 mg/dL Normal [facility] Comment on above: Order Comment: Order Date: 07/11/24Order Info: [id number] - CMPOrder Info: [id number] - LIPIDOrder Info: [id number] - TSH Result Comment: [place] onal Cholesterol Education Program (NCEP) guidelines: <40 mg/dL: Low HDL-cholesterol (major risk factor for CHD) >= 60 mg/dL: High HDL-cholesterol (negative risk factor for CHD) HDL-cholesterol is affected by a number of factors, e.g. smoking, exercise, hormones, sex and age. Performed By: #### L 500.4050, L501.2450, L100.0100 #### [facility] [facility] [address] [place], [address] Cholesterol in LDL [Mass/Vol] 76 mg/dL Normal [facility] Comment on above: Order Comment: Order Date: 07/11/24Order Info: [id number] - CMPOrder Info: [id number] - LIPIDOrder Info: [id number] - TSH Result Comment: Bord cynpvk=331-358 mg/dL Higher Umkx=477 mg/dL or greater Performed By: #### L 500.4050, L501.2450, L100.0100 #### [facility] [address] [place], [address] Cholesterol in VLDL [Mass/Vol] 17 mg/dL Normal 5-40 [facility] Comment on above: Order Comment: Order Date: 07/11/24Order Info: [id number] - CMPOrder Info: [id number] - LIPIDOrder Info: [id number] - TSH Performed By: #### L 500.4050, L501.2450, L100.0100 #### [facility] [address] [place], [address] Triglyceride [Mass/Vol] 84 mg/dL Normal [facility] Comment on above: Order Comment: Order Date: 07/11/24Order Info: [id number] - CMPOrder Info: [id number] - LIPIDOrder Info: [id number] - TSH Result Comment: The drugs N-Acetylcysteine and Metamizole may falsely depress this assay. Normal range: <150 mg/dL Borderline High: 150-199 mg/dL High: 200-499 mg/dL Very High: >500 mg/dL Performed By: #### L 500.4050, L501.2450, L100.0100 #### [facility] [address] [place], [address] Lymphocytes Auto (Unsp spec) [#/Vol]Ordered By: Coral Martinez on 07-22-2024 Lymphocytes (Bld) [#/Vol] 1.80 10*3/uL 0.83-4.51 [facility] Lymphocytes/100 WBC Auto (Un sp spec)Ordered By: Coral Andinoke on 07-22-2024 Lymphocytes/100 WBC (Bld) 28.3 % 19-41 [facility] MCV (mean corpuscular volume ) determinationOrdered By: Moeedgardo Juan on 07-22-2024 MCV (RBC) [Entitic vol] 98.2 fL 81-99 [facility] Mean corpuscular hemoglobin (MCH) determinationOrdered By: Moeedgardo Juan on 07-22-2024 MCH (RBC) [Entitic mass] 32.2 pg High 27.0-32.0 [facility] Mean corpuscular hemoglobin concentration (MCHC) determinationOrdered By: Moeedgardo Juan on 07-22-2024 MCHC (RBC) [Mass/Vol] 32.8 g/dL 32-36 [facility] Mean platelet volume determi nationOrdered By: Moeedgardo Juan on 07-22-2024 Platelet mean volume (Bld) [Entitic vol] 9.6 fL 6.2-12.0 [facility] Monocyte percentageOrdered B y: Moeedgardo Andinoke on 07-22-2024 Monocytes/100 WBC (Bld) 9.1 % 0-10 [facility] Neutrophil percentageOrdered By: Moeedgardo Andinoke on 07-22-2024 Neutrophils/100 WBC (Bld) 59.7 % 47-70 [facility] Nucleated red blood cell per centageOrdered By: Moeedgardo Juan on 07-22-2024 Nucleated RBC/100 WBC (Bld) [Ratio] 0 % 0-5 [facility] Platelet countOrdered By: Es Martinez on 07-22-2024 Platelets (Bld) [#/Vol] 240 10*3/uL 150-450 [facility] Potassium (Unsp spec) [Mass/ Vol]Ordered By: Coral Martinez on 07-22-2024 Potassium [Moles/Vol] 4.3 mmol/L 3.3-5.1 [facility] Potassium measurement (mass/ volume)Ordered By: Coral Martinez on 07-22-2024 Potassium (Unsp spec) [Mass/Vol] 4.3 mmol/L 3.3-5.1 [facility] RBC Auto (Bld) [#/Vol]Ordere d By: Coral Martinez on 07-22-2024 RBC (Bld) [#/Vol] 3.94 10*6/uL Low 4.2-5.4 [facility] Screening total cholesterol/ high density lipoprotein (HDL) cholesterol ratioOrdered By: Coral Martinez on 07-22-2024 Cholesterol.total/Lindy sterol in HDL [Mass ratio] 2.31 {ratio} [facility] Serum creatinine measurement (mass/volume)Ordered By: Coral Martinez on 07-22-2024 Creatinine [Mass/Vol] 0.83 mg/dL 0.70-1.20 [facility] Serum globulin measurementOr dered By: Coral Martinez on 07-22-2024 Globulin (S) [Mass/Vol] 2.9 g/dL 2.2-4.2 [facility] Serum glucose measurement (m ass/volume)Ordered By: Coral Martinez on 07-22-2024 Glucose [Mass/Vol] 98 mg/dL 70-99 [facility] Serum or plasma alanine jordan otransferase (ALT) measurementOrdered By: Coral Martinez on 07-22-2024 ALT [Catalytic activity/Vol] 35 U/L <35 [facility] Serum or plasma albumin chey urement (mass/volume)Ordered By: Coral Martinez on 07-22-2024 Albumin [Mass/Vol] 4.1 g/dL 3.5-5.0 [facility] Serum or plasma albumin/glob ulin mass ratioOrdered By: Coral Martinez on 07-22-2024 Albumin/Globulin [Mass ratio] 1.4 {ratio} 0.9-2.4 [facility] Serum or plasma alkaline yony sphatase measurementOrdered By: Coral Martinez on 07-22-2024 ALP [Catalytic activity/Vol] 70 U/L 35-104 [facility] Serum or plasma calcium chey urement (mass/volume)Ordered By: Coral Martinez on 07-22-2024 Calcium [Mass/Vol] 8.7 mg/dL 7.6-11.0 [facility] Serum or plasma cholesterol in HDL measurement (mass/volume)Ordered By: Coral Martinez on 07-22-2024 Cholesterol in HDL [Mass/Vol] 71 mg/dL >40 [facility] Comment on above: National Cholesterol Education Program (NCEP) guidelines:<40 mg/dL: Low HDL-cholesterol (major risk factor for CHD)>= 60 mg/dL: High HDL-cholesterol (negative risk factor for CHD)HDL-cholesterol is affected by a number of factors, e.g. smoking, exercise, hormones, sex and age. Serum or plasma cholesterol measurement (mass/volume)Ordered By: Coral Martinez on 07-22-2024 Cholesterol [Mass/Vol] 163 mg/dL <201 [facility] Comment on above: Cholesterol level, D esirable <200 mg/dLBorderline high cholesterol 200-239 mg/dLHigh cholesterol >=240 mg/dLRecommendations of the NCEP Adult Treatment Panel for the following risk-cutoff thresholds for the [place] population. Serum or plasma urea nitroge n measurement (mass/volume)Ordered By: Coral Martinez on 07-22-2024 Urea nitrogen [Mass/Vol] 9 mg/dL 4-19 [facility] Sodium levelOrdered By: Moe Martinez on 07-22-2024 Sodium [Moles/Vol] 137 mmol/L 133-145 [facility] TSH DL <= 0.005 mIU/L QnOrde red By: Coral Martinez on 07-22-2024 Thyroid Stimulating Hormone (TSH) 0.289 uIU/mL Low 0.300-4.200 [facility] TSH Qn 0.289 uIU/mL Low 0.300-4.200 [facility] Thyroid Stim Hormone (TSH)on 07-22-2024 TSH 0.289 uIU/mL Low 0.300-4.200 [facility] Comment on above: Order Comment: Order Date: 07/11/24Order Info: [id number] - CMPOrder Info: [id number] - LIPIDOrder Info: [id number] - TSH Performed By: #### L 500.4050, L501.2450, L100.0100 #### [facility] [address] [place], [place], [id number] Total proteinOrdered By: Karo Martinez on 07-22-2024 Protein [Mass/Vol] 6.9 g/dL 5.9-8.4 [facility] Triglycerides measurementOrd ered By: Coral Martinez on 07-22-2024 Triglyceride [Mass/Vol] 84 mg/dL <199 [facility] Comment on above: The drugs N-Acetylcy steine and Metamizole may falsely depress this assay. Normal range: <150 mg/dLBorderline High: 150-199 mg/dLHigh: 200-499 mg/dLVery High: >500 mg/dL Vitamin D, 25-hydroxyOrdered By: Coral Martinez on 07-22-2024 Vitamin D 25-Hydroxy 25.0 ng/mL Low 30-100 [facility] Comment on above: Vitamin D StatusDefi ciency: <20 ng/mL (50nmol/L)Insufficiency: 20-30 ng/mL (50-75 nmol/L)Sufficiency: 30-100 ng/mL (75-250 nmol/L)Toxicity: >100 ng/mL (>250 nmol/L) White blood cell (WBC) count Ordered By: Coral Martinez on 07-22-2024 WBC (Bld) [#/Vol] 6.4 10*3/uL 4.4-11.0 [facility] Absolute lymphocyte countOrd ered By: Clarice Liriano on 06-21-2024 Lymphocytes Auto (Unsp spec) [#/Vol] 2.27 10*3/uL 0.83-4.51 [facility] Absolute neutrophil countOrd ered By: Clarice Liriano on 06-21-2024 Neutrophils (Bld) [#/Vol] 3.8 10*3/uL 2.0-7.7 [facility] Albumin to globulin ratioOrd ered By: Clarice Liriano on 06-21-2024 Albumin/Globulin [Mass ratio] 0.9 {ratio} 0.9-2.4 [facility] Automated lymphocyte count a s percentage of total leukocytesOrdered By: Clarice Liriano on 06-21-2024 Lymphocytes/100 WBC Auto (Unsp spec) 33.0 % 19-41 [facility] Basophil percentageOrdered B y: Clarice Liriano on 06-21-2024 Basophils/100 WBC (Bld) 0.6 % 0-1 [facility] Bilirubin, totalOrdered By: Clarice Liriano on 06-21-2024 Bilirubin [Mass/Vol] 0.30 mg/dL 0.20-1.00 [facility] Comment on above: For patients on eltr ombopag therapy, use of Dimension [place] TBIL is not recommended. Blood urea nitrogen (BUN)/cr eatinine ratioOrdered By: Clarice Liriano on 06-21-2024 Urea nitrogen/Creatinine [Mass ratio] 11.6 mg/mg 10-20 [facility] CBC W/Diff, Automatedon 06-10-2024 Absolute Lymph 2.27 X10 3/uL Normal 0.83-4.51 [facility] Comment on above: Performed By: #### L 500.4050, L501.2450, L100.0100 #### [facility] [address] [place], [address] Absolute Neut 3.8 X10 3/uL Normal 2.0-7.7 [facility] Comment on above: Performed By: #### L 500.4050, L501.2450, L100.0100 #### [facility] [address] [place], [address] Basophils/100 WBC (Bld) 0.6 % Normal 0-1 [facility] Comment on above: Performed By: #### L 500.4050, L501.2450, L100.0100 #### [facility] [address] [place], [address] Eosinophils/100 WBC (Bld) 1.6 % Normal 0-5 [facility] Comment on above: Performed By: #### L 500.4050, L501.2450, L100.0100 #### [facility] [address] [place], [address] Erythrocyte distribution width (RBC) [Ratio] 13.6 % Normal 11.6-14.6 [facility] Comment on above: Performed By: #### L 500.4050, L501.2450, L100.0100 #### [facility] [address] [place], [address] Hematocrit (Bld) [Volume fraction] 38.6 % Normal 37-47 [facility] Comment on above: Performed By: #### L 500.4050, L501.2450, L100.0100 #### [facility] [address] [place], [address] Hemoglobin (Bld) [Mass/Vol] 12.7 g/dL Normal 12.0-15.0 [facility] Comment on above: Performed By: #### L 500.4050, L501.2450, L100.0100 #### [facility] [address] [place], [address] IG% 0.100 Normal 0.0-0.9 [facility] Comment on above: Result Comment: IG% - Immature Granulocytes (promyelocytes, myelocytes and metamyelocytes) > 1% indicates that a LEFT SHIFT is Present. Performed By: #### L 500.4050, L501.2450, L100.0100 #### [facility] [address] [place], [address] Lymphocytes/100 WBC (Bld) 33.0 % Normal 19-41 [facility] Comment on above: Performed By: #### L 500.4050, L501.2450, L100.0100 #### [facility] [address] [place], [address] MCH (RBC) [Entitic mass] 32.2 pg High 27.0-32.0 [facility] Comment on above: Performed By: #### L 500.4050, L501.2450, L100.0100 #### [facility] [address] [place], [address] MCHC (RBC) [Mass/Vol] 32.9 g/dL Normal 32-36 [facility] Comment on above: Performed By: #### L 500.4050, L501.2450, L100.0100 #### [facility] [address] [place], [address] MCV (RBC) [Entitic vol] 97.7 fL Normal 81-99 [facility] Comment on above: Performed By: #### L 500.4050, L501.2450, L100.0100 #### [facility] [address] [place], [address] Monocytes/100 WBC (Bld) 9.8 % Normal 0-10 [facility] Comment on above: Performed By: #### L 500.4050, L501.2450, L100.0100 #### [facility] [address] [place], [address] Neutrophils/100 WBC (Bld) 54.9 % Normal 47-70 [facility] Comment on above: Performed By: #### L 500.4050, L501.2450, L100.0100 #### [facility] [address] [place], [address] Nucleated RBC (Bld) [#/Vol] 0 10*3/uL Normal 0-5 [facility] Comment on above: Performed By: #### L 500.4050, L501.2450, L100.0100 #### [facility] [address] [place], [address] Platelet mean volume (Bld) [Entitic vol] 10.4 fL Normal 6.2-12.0 [facility] Comment on above: Performed By: #### L 500.4050, L501.2450, L100.0100 #### [facility] [address] [place], [address] Platelets (Bld) [#/Vol] 248 10*3/uL Normal 150-450 [facility] Comment on above: Performed By: #### L 500.4050, L501.2450, L100.0100 #### [facility] [address] [place], [address] RBC (Bld) [#/Vol] 3.95 10*6/uL Low 4.2-5.4 [facility] Comment on above: Performed By: #### L 500.4050, L501.2450, L100.0100 #### [facility] [address] [place], [address] RDW SD 48.3 fl High 35.1-43.9 [facility] Comment on above: Performed By: #### L 500.4050, L501.2450, L100.0100 #### [facility] [address] [place], [address] WBC (Bld) [#/Vol] 6.9 10*3/uL Normal 4.4-11.0 [facility] Comment on above: Performed By: #### L 500.4050, L501.2450, L100.0100 #### [facility] [address] [place], [address] Carbon dioxide measurementOr dered By: Clarice Liriano on 06-21-2024 CO2 [Moles/Vol] 27.0 mmol/L 21.0-32.0 [facility] Chloride measurementOrdered By: Clarice Liriano on 06-21-2024 Chloride [Moles/Vol] 104 mmol/L 98-107 [facility] Comprehensive Metabolic Prof ilon 06-21-2024 Albumin [Mass/Vol] 3.6 g/dL Normal 3.2-5.0 [facility] Comment on above: Performed By: #### L 500.4050, L501.2450, L100.0100 #### [facility] [address] [place], [address] Albumin/Globulin [Mass ratio] 0.9 {ratio} Normal 0.9-2.4 [facility] Comment on above: Performed By: #### L 500.4050, L501.2450, L100.0100 #### [facility] [address] [place], [address] ALK P 83 U/L Normal 45-117 [facility] Comment on above: Performed By: #### L 500.4050, L501.2450, L100.0100 #### [facility] [address] [place], [address] ALT [Catalytic activity/Vol] 34 U/L Normal 13-56 [facility] Comment on above: Performed By: #### L 500.4050, L501.2450, L100.0100 #### [facility] [address] [place], [address] AST [Catalytic activity/Vol] 18 U/L Normal 15-37 [facility] Comment on above: Performed By: #### L 500.4050, L501.2450, L100.0100 #### [facility] [address] [place], [address] Bilirubin [Mass/Vol] 0.30 mg/dL Normal 0.20-1.00 [facility] Comment on above: Result Comment: For patients on eltrombopag therapy, use of Dimension [place] TBIL is not recommended. Performed By: #### L 500.4050, L501.2450, L100.0100 #### [facility] [address] [place], [address] BUN/CRE 11.6 RATIO Normal 10-20 [facility] Comment on above: Performed By: #### L 500.4050, L501.2450, L100.0100 #### [facility] [address] [place], [address] CA,Total 8.7 mg/dL Normal 8.5-10.1 [facility] Comment on above: Performed By: #### L 500.4050, L501.2450, L100.0100 #### [facility] [address] [place], [address] Chloride [Moles/Vol] 104 mmol/L Normal 98-107 [facility] Comment on above: Performed By: #### L 500.4050, L501.2450, L100.0100 #### [facility] [address] [place], [address] CO2 [Moles/Vol] 27.0 mmol/L Normal 21.0-32.0 [facility] Comment on above: Performed By: #### L 500.4050, L501.2450, L100.0100 #### [facility] [address] [place], [address] Creatinine [Mass/Vol] 0.86 mg/dL Normal 0.55-1.02 [facility] Comment on above: Result Comment: The validity of the calculated GFR GFRAA in patients over 70 years has not been determined. Clinical correlation is essential. Performed By: #### L 500.4050, L501.2450, L100.0100 #### [facility] [address] [place], [address] EST GFR - AA 92 mL/min Normal >60 [facility] Comment on above: Result Comment: Afri can Turkish GFR Calc Performed By: #### L 500.4050, L501.2450, L100.0100 #### [facility] [address] [place], [address] GAP 8 Normal 5-15 [facility] Comment on above: Performed By: #### L 500.4050, L501.2450, L100.0100 #### [facility] [address] [place], [address] GFR/1.73 sq M.predicted among non-blacks MDRD (S/P/Bld) [Vol rate/Area] 76 mL/min/{1.73_m2} Normal >60 [facility] Comment on above: Result Comment: Non- GFR Calc Performed By: #### L 500.4050, L501.2450, L100.0100 #### [facility] [address] [place], [address] Globulin (S) [Mass/Vol] 3.9 g/dL Normal 2.2-4.2 [facility] Comment on above: Performed By: #### L 500.4050, L501.2450, L100.0100 #### [facility] [address] [place], [address] Glucose [Mass/Vol] 98 mg/dL Normal 74-106 [facility] Comment on above: Performed By: #### L 500.4050, L501.2450, L100.0100 #### [facility] [address] [place], [address] Potassium [Moles/Vol] 4.1 mmol/L Normal 3.5-5.1 [facility] Comment on above: Performed By: #### L 500.4050, L501.2450, L100.0100 #### [facility] [address] [place], [address] Sodium [Moles/Vol] 138 mmol/L Normal 136-145 [facility] Comment on above: Performed By: #### L 500.4050, L501.2450, L100.0100 #### [facility] [address] [place], [address] T PROT 7.5 g/dL Normal 6.4-8.2 [facility] Comment on above: Performed By: #### L 500.4050, L501.2450, L100.0100 #### [facility] [address] [place], [address] Urea nitrogen [Mass/Vol] 10 mg/dL Normal 7-18 [facility] Comment on above: Performed By: #### L 500.4050, L501.2450, L100.0100 #### [facility] [address] [place], [address] Eosinophil percentageOrdered By: Clarice Liriano on 06-21-2024 Eosinophils/100 WBC (Bld) 1.6 % 0-5 [facility] Erythrocyte distribution wid th ratioOrdered By: Clarice Liriano on 06-21-2024 Erythrocyte distribution width (RBC) [Ratio] 13.6 % 11.6-14.6 [facility] Erythrocyte distribution wid th standard deviationOrdered By: Clarice Liriano on 06-21-2024 Erythrocyte distribution width (RBC) [Entitic vol] 48.3 fL High 35.1-43.9 [facility] Erythrocyte distribution width (RBC) [Ratio] 48.3 fl High 35.1-43.9 [facility] Estimated glomerular filtrat ion rate (GFR) AmericanOrdered By: Clarice Liriano on 06-21-2024 Estimated GFR (MDRD) Amer 92 mL/min >60 [facility] Comment on above: GFR Calc Glomerular filtration rate ( GFR) estimationOrdered By: Clarice Liriano on 06-21-2024 Estimated GFR (MDRD) Non-Af Amer 76 mL/min >60 [facility] Comment on above: Non- GFR Calc GFR/1.73 sq M.predicted among non-blacks MDRD (S/P/Bld) [Vol rate/Area] 76 mL/min/{1.73_m2} >60 [facility] Comment on above: Non- GFR Calc Glucose measurementOrdered B y: Clarice Liriano on 06-21-2024 Glucose [Mass/Vol] 98 mg/dL 74-106 [facility] Hematocrit Auto (Bld) [Volum e fraction]Ordered By: Clarice Liriano on 06-21-2024 Hematocrit (Bld) [Volume fraction] 38.6 % 37-47 [facility] Hemoglobin measurementOrdere d By: Clarice Liriano on 06-21-2024 Hemoglobin (Bld) [Mass/Vol] 12.7 g/dL 12.0-15.0 [facility] Immature granulocytes/100 WB C Auto (Bld)Ordered By: Clarice Liriano on 06-21-2024 Immature granulocytes/100 WBC (Bld) 0.100 % 0.0-0.9 [facility] Comment on above: IG% - Immature Granu locytes (promyelocytes, myelocytes and metamyelocytes) > 1% indicates that a LEFT SHIFT is Present. Laboratory - Chemistry and C hemistry - challengeOrdered By: Clarice Liriano on 06-21-2024 AST [Catalytic activity/Vol] 18 U/L 15-37 [facility] Lymphocytes Auto (Unsp spec) [#/Vol]Ordered By: Calrice Liriano on 06-21-2024 Lymphocytes (Bld) [#/Vol] 2.27 10*3/uL 0.83-4.51 [facility] Lymphocytes/100 WBC Auto (Un sp spec)Ordered By: Clarice Liriano on 06-21-2024 Lymphocytes/100 WBC (Bld) 33.0 % 19-41 [facility] MCV (mean corpuscular volume ) determinationOrdered By: Clarice Liriano on 06-21-2024 MCV (RBC) [Entitic vol] 97.7 fL 81-99 [facility] Mean corpuscular hemoglobin (MCH) determinationOrdered By: Clarice Liriano on 06-21-2024 MCH (RBC) [Entitic mass] 32.2 pg High 27.0-32.0 [facility] Mean corpuscular hemoglobin concentration (MCHC) determinationOrdered By: Clarice Liriano on 06-21-2024 MCHC (RBC) [Mass/Vol] 32.9 g/dL 32-36 [facility] Mean platelet volume determi nationOrdered By: Clarice Liriano on 06-21-2024 Platelet mean volume (Bld) [Entitic vol] 10.4 fL 6.2-12.0 [facility] Monocyte percentageOrdered B y: Clarice Liriano on 02-12-2025 Monocytes/100 WBC (Bld) 9.8 % 0-10 [facility] Neutrophil percentageOrdered By: Clarice Liriano on 06-21-2024 Neutrophils/100 WBC (Bld) 54.9 % 47-70 [facility] Nucleated red blood cell per centageOrdered By: Clarice Liriano on 06-21-2024 Nucleated RBC/100 WBC (Bld) [Ratio] 0 % 0-5 [facility] Platelet countOrdered By: Lynn Liriano on 06-21-2024 Platelets (Bld) [#/Vol] 248 10*3/uL 150-450 [facility] Potassium measurementOrdered By: Clarice Liriano on 06-21-2024 Potassium [Moles/Vol] 4.1 mmol/L 3.5-5.1 [facility] RBC Auto (Bld) [#/Vol]Ordere d By: Clarice Liriano on 06-21-2024 RBC (Bld) [#/Vol] 3.95 10*6/uL Low 4.2-5.4 [facility] Serum anion gap measurementO rdered By: Clarice Liriano on 06-21-2024 Anion gap [Moles/Vol] 8 mmol/L 5-15 [facility] Serum globulin measurementOr dered By: Clarice Liriano on 06-21-2024 Globulin (S) [Mass/Vol] 3.9 g/dL 2.2-4.2 [facility] Serum or plasma alanine jordan otransferase (ALT) measurementOrdered By: Clarice Liriano on 06-21-2024 ALT [Catalytic activity/Vol] 34 U/L 13-56 [facility] Serum or plasma albumin chey urement (mass/volume)Ordered By: Clarice Liriano on 06-21-2024 Albumin [Mass/Vol] 3.6 g/dL 3.2-5.0 [facility] Serum or plasma alkaline yony sphatase measurementOrdered By: Clarice Liriano on 06-21-2024 ALP [Catalytic activity/Vol] 83 U/L 45-117 [facility] Serum or plasma calcium chey urement (mass/volume)Ordered By: Clarice Liriano on 06-21-2024 Calcium [Mass/Vol] 8.7 mg/dL 8.5-10.1 [facility] Serum or plasma creatinine m easurement (mass/volume)Ordered By: Clarice Liriano on 06-21-2024 Creatinine [Mass/Vol] 0.86 mg/dL 0.55-1.02 [facility] Comment on above: The validity of the calculated GFR & GFRAA in patients over 70 years has not been determined. Clinical correlation is essential. Serum or plasma urea nitroge n measurement (mass/volume)Ordered By: Clarice Liriano on 06-21-2024 Urea nitrogen [Mass/Vol] 10 mg/dL 7-18 [facility] Sodium levelOrdered By: Elana Liriano on 06-21-2024 Sodium [Moles/Vol] 138 mmol/L 136-145 [facility] Total proteinOrdered By: Jersey Liriano on 06-21-2024 Protein [Mass/Vol] 7.5 g/dL 6.4-8.2 [facility] White blood cell (WBC) count Ordered By: Clarice Liriano on 06-21-2024 WBC (Bld) [#/Vol] 6.9 10*3/uL 4.4-11.0 [facility] CBC W/Diff, Automatedon 03-10 Absolute Lymph 2.23 X10 3/uL Normal 0.83-4.51 [facility] Comment on above: Performed By: #### L 500.4050, L501.2450, L100.0100 #### [facility] [address] [place], [address] Absolute Neut 5.2 X10 3/uL Normal 2.0-7.7 [facility] Comment on above: Performed By: #### L 500.4050, L501.2450, L100.0100 #### [facility] [address] [place], [address] Basophils/100 WBC (Bld) 0.7 % Normal 0-1 [facility] Comment on above: Performed By: #### L 500.4050, L501.2450, L100.0100 #### [facility] [address] [place], [address] Eosinophils/100 WBC (Bld) 1.7 % Normal 0-5 [facility] Comment on above: Performed By: #### L 500.4050, L501.2450, L100.0100 #### [facility] [address] [place], [address] Erythrocyte distribution width (RBC) [Ratio] 12.7 % Normal 11.6-14.6 [facility] Comment on above: Performed By: #### L 500.4050, L501.2450, L100.0100 #### [facility] [address] [place], [address] Hematocrit (Bld) [Volume fraction] 41.7 % Normal 37-47 [facility] Comment on above: Performed By: #### L 500.4050, L501.2450, L100.0100 #### [facility] [address] [place], [address] Hemoglobin (Bld) [Mass/Vol] 13.5 g/dL Normal 12.0-15.0 [facility] Comment on above: Performed By: #### L 500.4050, L501.2450, L100.0100 #### [facility] [address] [place], [address] IG% 0.200 Normal 0.0-0.9 [facility] Comment on above: Result Comment: IG% - Immature Granulocytes (promyelocytes, myelocytes and metamyelocytes) > 1% indicates that a LEFT SHIFT is Present. Performed By: #### L 500.4050, L501.2450, L100.0100 #### [facility] [address] [place], [address] Lymphocytes/100 WBC (Bld) 27.1 % Normal 19-41 [facility] Comment on above: Performed By: #### L 500.4050, L501.2450, L100.0100 #### [facility] [address] [place], [address] MCH (RBC) [Entitic mass] 31.9 pg Normal 27.0-32.0 [facility] Comment on above: Performed By: #### L 500.4050, L501.2450, L100.0100 #### [facility] [address] [place], [address] MCHC (RBC) [Mass/Vol] 32.4 g/dL Normal 32-36 [facility] Comment on above: Performed By: #### L 500.4050, L501.2450, L100.0100 #### [facility] [address] [place], [address] MCV (RBC) [Entitic vol] 98.6 fL Normal 81-99 [facility] Comment on above: Performed By: #### L 500.4050, L501.2450, L100.0100 #### [facility] [address] [place], [address] Monocytes/100 WBC (Bld) 7.4 % Normal 0-10 [facility] Comment on above: Performed By: #### L 500.4050, L501.2450, L100.0100 #### [facility] [address] [place], [address] Neutrophils/100 WBC (Bld) 62.9 % Normal 47-70 [facility] Comment on above: Performed By: #### L 500.4050, L501.2450, L100.0100 #### [facility] [address] [place], [address] Nucleated RBC (Bld) [#/Vol] 0 10*3/uL Normal 0-5 [facility] Comment on above: Performed By: #### L 500.4050, L501.2450, L100.0100 #### [facility] [address] [place], [address] Platelet mean volume (Bld) [Entitic vol] 10.2 fL Normal 6.2-12.0 [facility] Comment on above: Performed By: #### L 500.4050, L501.2450, L100.0100 #### [facility] [address] [place], [address] Platelets (Bld) [#/Vol] 248 10*3/uL Normal 150-450 [facility] Comment on above: Performed By: #### L 500.4050, L501.2450, L100.0100 #### [facility] [address] [place], [address] RBC (Bld) [#/Vol] 4.23 10*6/uL Normal 4.2-5.4 [facility] Comment on above: Performed By: #### L 500.4050, L501.2450, L100.0100 #### [facility] [address] [place], [address] RDW SD 45.6 fl High 35.1-43.9 [facility] Comment on above: Performed By: #### L 500.4050, L501.2450, L100.0100 #### [facility] [address] [place], [address] WBC (Bld) [#/Vol] 8.2 10*3/uL Normal 4.4-11.0 [facility] Comment on above: Performed By: #### L 500.4050, L501.2450, L100.0100 #### [facility] [address] [place], [address] Comprehensive Metabolic Prof ilon 03-21-2024 Albumin [Mass/Vol] 4.0 g/dL Normal 3.2-5.0 [facility] Comment on above: Performed By: #### L 500.4050, L501.2450, L100.0100 #### [facility] [address] [place], [address] Albumin/Globulin [Mass ratio] 1.1 {ratio} Normal 0.9-2.4 [facility] Comment on above: Performed By: #### L 500.4050, L501.2450, L100.0100 #### [facility] [address] [place], [address] ALK P 78 U/L Normal 45-117 [facility] Comment on above: Performed By: #### L 500.4050, L501.2450, L100.0100 #### [facility] [address] [place], [address] ALT [Catalytic activity/Vol] 38 U/L Normal 13-56 [facility] Comment on above: Performed By: #### L 500.4050, L501.2450, L100.0100 #### [facility] [address] [place], [address] AST [Catalytic activity/Vol] 19 U/L Normal 15-37 [facility] Comment on above: Performed By: #### L 500.4050, L501.2450, L100.0100 #### [facility] [address] [place], [address] Bilirubin [Mass/Vol] 0.40 mg/dL Normal 0.20-1.00 [facility] Comment on above: Result Comment: For patients on eltrombopag therapy, use of Dimension [place] TBIL is not recommended. Performed By: #### L 500.4050, L501.2450, L100.0100 #### [facility] [address] [place], [address] BUN/CRE 14.4 RATIO Normal 10-20 [facility] Comment on above: Performed By: #### L 500.4050, L501.2450, L100.0100 #### [facility] [address] [place], [address] CA,Total 9.1 mg/dL Normal 8.5-10.1 [facility] Comment on above: Performed By: #### L 500.4050, L501.2450, L100.0100 #### [facility] [address] [place], [address] Chloride [Moles/Vol] 104 mmol/L Normal 98-107 [facility] Comment on above: Performed By: #### L 500.4050, L501.2450, L100.0100 #### [facility] [address] [place], [address] CO2 [Moles/Vol] 26.0 mmol/L Normal 21.0-32.0 [facility] Comment on above: Performed By: #### L 500.4050, L501.2450, L100.0100 #### [facility] Laboratory [address] [place], [address] Creatinine [Mass/Vol] 0.90 mg/dL Normal 0.55-1.02 [facility] Comment on above: Result Comment: The validity of the calculated GFR GFRAA in patients over 70 years has not been determined. Clinical correlation is essential. Performed By: #### L 500.4050, L501.2450, L100.0100 #### [facility] [address] [place], [address] EST GFR - AA 87 mL/min Normal >60 [facility] Comment on above: Result Comment: Afri can Turkish GFR Calc Performed By: #### L 500.4050, L501.2450, L100.0100 #### [facility] Laboratory [address] [place], [address] GAP 6 Normal 5-15 [facility] Comment on above: Performed By: #### L 500.4050, L501.2450, L100.0100 #### [facility] Laboratory [address] [place], [address] GFR/1.73 sq M.predicted among non-blacks MDRD (S/P/Bld) [Vol rate/Area] 72 mL/min/{1.73_m2} Normal >60 [facility] Comment on above: Result Comment: Non- GFR Calc Performed By: #### L 500.4050, L501.2450, L100.0100 #### [facility] [address] [place], [address] Globulin (S) [Mass/Vol] 3.7 g/dL Normal 2.2-4.2 [facility] Comment on above: Performed By: #### L 500.4050, L501.2450, L100.0100 #### [facility] Laboratory [address] [place], [address] Glucose [Mass/Vol] 93 mg/dL Normal 74-106 [facility] Comment on above: Performed By: #### L 500.4050, L501.2450, L100.0100 #### [facility] Laboratory [address] [place], [address] Potassium [Moles/Vol] 4.1 mmol/L Normal 3.5-5.1 [facility] Comment on above: Performed By: #### L 500.4050, L501.2450, L100.0100 #### [facility] [address] [place], [address] Sodium [Moles/Vol] 136 mmol/L Normal 136-145 [facility] Comment on above: Performed By: #### L 500.4050, L501.2450, L100.0100 #### [facility] [address] [place], [address] T PROT 7.7 g/dL Normal 6.4-8.2 [facility] Comment on above: Performed By: #### L 500.4050, L501.2450, L100.0100 #### [facility] [address] [place], [address] Urea nitrogen [Mass/Vol] 13 mg/dL Normal 7-18 [facility] Comment on above: Performed By: #### L 500.4050, L501.2450, L100.0100 #### [facility] [address] [place], [address] CBC + DIFFon 01-06-2024 Baso # 0.02 x10EE3/UL Normal 0.00 - 0.10 [facility] Comment on above: Performed By: #### 2 15179 #### [facility],[address] [place] [address] 20421 Basophils/100 WBC (Bld) 0.3 % Normal 0.0 - 2.0 [facility] Comment on above: Performed By: #### 2 96893 #### [facility],[address] [place] [address] 98851 CBC + DIFF Normal [facility] Comment on above: Result Comment: CBC- COMPLETE BLOOD COUNT Performed By: #### 2 93296 #### [facility],[address] [place] [address] 63219 EO # 0.12 x10EE3/UL Normal 0.00 - 0.50 [facility] Comment on above: Performed By: #### 2 97876 #### [facility],[address] [place] [address] 27945 Eosinophils/100 WBC (Bld) 1.8 % Normal 0.0 - 7.0 [facility] Comment on above: Performed By: #### 2 66730 #### [facility],[address] [place] [address] 55456 Erythrocyte distribution width (RBC) [Ratio] 13.2 % Normal 12.0 - 15.6 [facility] Comment on above: Performed By: #### 2 44420 #### [facility],[address] [place] [address] Hematocrit (Bld) [Volume fraction] 39.9 % Normal 34.0 - 46.0 [facility] Comment on above: Performed By: #### 2 65817 #### [facility],[address] [place] [address] Hemoglobin (Bld) [Mass/Vol] 13.4 g/dL Normal 12.0 - 16.0 [facility] Comment on above: Performed By: #### 2 20780 #### [facility],[address] [place] [address] Lymph # 2.00 x10EE3/UL Normal 0.80 - 2.80 [facility] Comment on above: Performed By: #### 2 59003 #### [facility],[address] [place] [address] Lymphocytes/100 WBC (Bld) 29.8 % Normal 20.0 - 45.0 [facility] Comment on above: Performed By: #### 2 83532 #### [facility],[address] [place] [address] MANUAL DIFF N/A Normal [facility] Comment on above: Performed By: #### 2 47156 #### [facility],[address] [place], [place] [address] MCH (RBC) [Entitic mass] 32 pg Normal 27 - 33 [facility] Comment on above: Performed By: #### 2 58625 #### [facility],[address] [place] [address] MCHC 34 X10 3 Normal 32 - 36 [facility] Comment on above: Performed By: #### 2 38034 #### [facility],[address] [place] [address] MCV (RBC) [Entitic vol] 96 fL Normal 80 - 99 [facility] Comment on above: Performed By: #### 2 10821 #### [place] [address] Davidson # 0.52 x10EE3/UL Normal 0.20 - 1.00 [facility] Comment on above: Performed By: #### 2 50233 #### [facility],[address] [place] [address] MONOS % 7.8 % Normal 0.0 - 10.0 [facility] Comment on above: Performed By: #### 2 66613 #### [place] [address] Morphology Deonte (Bld) [Interp] N/A Normal [facility] Comment on above: Performed By: #### 2 30307 #### [place] [address] Neut # 4.04 x10EE3/UL Normal 1.50 - 7.10 [facility] Comment on above: Performed By: #### 2 11313 #### [place] [address] Neutrophils/100 WBC (Bld) 60.3 % Normal 46.0 - 76.0 [facility] Comment on above: Performed By: #### 2 83960 #### [place] [address] PLATELET 267 x10EE3/UL Normal 150 - 450 [facility] Comment on above: Performed By: #### 2 03160 #### [place] [id number] Platelet mean volume (Bld) [Entitic vol] 7.3 fL Normal 6.6 - 10.5 [facility] Comment on above: Result Comment: AUTO MATED DIFFERENTIAL Performed By: #### 2 68239 #### [address],[place] [address] RBC 4.18 x 10EE6/UL Normal 4.10 - 5.30 [facility] Comment on above: Performed By: #### 2 69577 #### [facility],[address] [place] [address] 22638 WBC 6.7 x 10EE3/UL Normal 4.5 - 10.8 [facility] Comment on above: Performed By: #### 2 30136 #### [facility],[address] [place] [address] 60746 CMP with eGFRon 01-06-2024 AGE 43 years Normal [facility] Comment on above: Performed By: #### 2 41278 #### [facility],[address] [place] [address] 20645 Albumin [Mass/Vol] 3.7 g/dL Normal 3.4 - 5.0 [facility] Comment on above: Performed By: #### 2 43122 #### [facility],[address] [place] [address] 67225 Albumin/Globulin [Mass ratio] 1.0 {ratio} Normal 0.9 - 1.6 [facility] Comment on above: Performed By: #### 2 12659 #### [facility],[address] [place] [address] 50704 ALK PHOS 91 U/L Normal 46 - 116 [facility] Comment on above: Performed By: #### 2 23759 #### [facility],[address] [place] [address] 66154 ALT [Catalytic activity/Vol] 34 U/L Normal 16 - 63 [facility] Comment on above: Performed By: #### 2 79684 #### [facility],[address] [place] [address] 99993 Anion gap [Moles/Vol] 9 mmol/L Low 10 - 20 [facility] Comment on above: Performed By: #### 2 19053 #### [facility],[address] [place] [address] 67686 AST [Catalytic activity/Vol] 20 U/L Normal 13 - 39 [facility] Comment on above: Performed By: #### 2 34535 #### [facility],[address] [place] [address] 67212 B/C RATIO 15 ratio Normal 0 - 30 [facility] Comment on above: Performed By: #### 2 89281 #### [facility],[address] [place] [address] 99744 Bilirubin [Mass/Vol] 0.4 mg/dL Normal 0.2 - 1.0 [facility] Comment on above: Performed By: #### 2 44178 #### [facility],[address] [place] [address] 51196 Calcium [Mass/Vol] 8.7 mg/dL Normal 8.5 - 10.1 [facility] Comment on above: Performed By: #### 2 99147 #### [facility],[address] [place] [address] 47248 Chloride [Moles/Vol] 102 mmol/L Normal 98 - 107 [facility] Comment on above: Performed By: #### 2 51471 #### [facility],[address] [place] [address] 67643 CMP with eGFR Normal [facility] Comment on above: Result Comment: COMP REHENSIVE METABOLIC PANEL Performed By: #### 2 41907 #### [facility],[address] [place] [address] 86210 CO2 [Moles/Vol] 29.9 mmol/L Normal 21.0 - 32.0 [facility] Comment on above: Performed By: #### 2 65990 #### [facility],[address] [place] [address] 28504 Creatinine [Mass/Vol] 0.89 mg/dL Normal 0.55 - 1.02 [facility] Comment on above: Performed By: #### 2 88111 #### [facility],[address] [place] [address] 89568 GFR/1.73 sq M.predicted among non-blacks MDRD (S/P/Bld) [Vol rate/Area] mL/min/{1.73_m2} Normal 60 - 999 [facility] Comment on above: Performed By: #### 2 26913 #### [facility],[address] [place] [address] 36619 Result Comment: ACCO RDING TO THE NATIONAL KIDNEY DISEASE EDUCATION PROGRAM(NKDE), A NORMAL eGFR IS A VALUE GREATER THAN OR EQUAL TO 60 ML/MIN/1.73 SQ METERS. CHRONIC KIDNEY DISEASE: <60mL/MIN/1.73 SQ METERS KIDNEY FAILURE: <15mL/MIN/1.73 SQ METERS THIS TEST SHOULD ONLY BE USED FOR PATIENTS 18 YEARS OF AGE AND OLDER. Globulin (S) [Mass/Vol] 3.8 g/dL Normal 1.5 - 3.8 [facility] Comment on above: Performed By: #### 2 88442 #### [facility],[address] [place] [address] 74992 Glucose [Mass/Vol] 94 mg/dL Normal 74 - 106 [facility] Comment on above: Performed By: #### 2 34178 #### [facility],[address] [place] [address] 42318 Potassium [Moles/Vol] 4.0 mmol/L Normal 3.5 - 5.1 [facility] Comment on above: Performed By: #### 2 17796 #### [facility],[address] [place] [address] 59774 Protein [Mass/Vol] 7.5 g/dL Normal 6.4 - 8.2 [facility] Comment on above: Performed By: #### 2 88122 #### [facility],[address] [place] [address] 86136 Sodium [Moles/Vol] 137 mmol/L Normal 136 - 145 [facility] Comment on above: Performed By: #### 2 48979 #### [facility],[address] [place] [address] Urea nitrogen [Mass/Vol] 13 mg/dL Normal 7 - 18 [facility] Comment on above: Performed By: #### 2 44453 #### [facility],[address] [place] [address] CBC + DIFFon 12-01-2023 Baso # 0.03 x10EE3/UL Normal 0.00 - 0.10 [facility] Comment on above: Performed By: #### 2 75157 #### [facility],[address] [place], [place] [address] Basophils/100 WBC (Bld) 0.4 % Normal 0.0 - 2.0 [facility] Comment on above: Performed By: #### 2 29186 #### [facility],[address] [place] [address] CBC + DIFF Normal [facility] Comment on above: Result Comment: CBC- COMPLETE BLOOD COUNT Performed By: #### 2 96623 #### [facility],[address] [place] [address] EO # 0.07 x10EE3/UL Normal 0.00 - 0.50 [facility] Comment on above: Performed By: #### 2 38772 #### [facility],[address] [place], [place] [address] Eosinophils/100 WBC (Bld) 0.8 % Normal 0.0 - 7.0 [facility] Comment on above: Performed By: #### 2 40765 #### [facility],[address] [place] [address] Erythrocyte distribution width (RBC) [Ratio] 13.4 % Normal 12.0 - 15.6 [facility] Comment on above: Performed By: #### 2 98812 #### [facility],[address] [address],[place] [address] Hematocrit (Bld) [Volume fraction] 41.3 % Normal 34.0 - 46.0 [facility] Comment on above: Performed By: #### 2 57048 #### [facility],[address] [place] [address] Hemoglobin (Bld) [Mass/Vol] 13.9 g/dL Normal 12.0 - 16.0 [facility] Comment on above: Performed By: #### 2 61634 #### [facility],[address] [place] [address] Lymph # 1.96 x10EE3/UL Normal 0.80 - 2.80 [facility] Comment on above: Performed By: #### 2 81973 #### [facility],[address] [place] [address] Lymphocytes/100 WBC (Bld) 22.9 % Normal 20.0 - 45.0 [facility] Comment on above: Performed By: #### 2 74316 #### [facility],[address] [place] [address] MANUAL DIFF N/A Normal [facility] Comment on above: Performed By: #### 2 81645 #### [facility],[address] [place] [address] MCH (RBC) [Entitic mass] 32 pg Normal 27 - 33 [facility] Comment on above: Performed By: #### 2 62636 #### [facility],[address] [place], [place] [address] MCHC 34 X10 3 Normal 32 - 36 [facility] Comment on above: Performed By: #### 2 51255 #### [facility],[address] [place], [place] [address] MCV (RBC) [Entitic vol] 96 fL Normal 80 - 99 [facility] Comment on above: Performed By: #### 2 03289 #### [facility],[address],[place] [address] Davidson # 0.51 x10EE3/UL Normal 0.20 - 1.00 [facility] Comment on above: Performed By: #### 2 67132 #### [address] [address] MONOS % 5.9 % Normal 0.0 - 10.0 [facility] Comment on above: Performed By: #### 2 92826 #### [facility],[address] [place] [address] Morphology Deonte (Bld) [Interp] N/A Normal [facility] Comment on above: Performed By: #### 2 23321 #### [place] [address] Neut # 5.97 x10EE3/UL Normal 1.50 - 7.10 [facility] Comment on above: Performed By: #### 2 99671 #### [place] [address] Neutrophils/100 WBC (Bld) 70.0 % Normal 46.0 - 76.0 [facility] Comment on above: Performed By: #### 2 12567 #### [place] [address] PLATELET 265 x10EE3/UL Normal 150 - 450 [facility] Comment on above: Performed By: #### 2 11217 #### [place] [address] Platelet mean volume (Bld) [Entitic vol] 7.8 fL Normal 6.6 - 10.5 [facility] Comment on above: Result Comment: AUTO MATED DIFFERENTIAL Performed By: #### 2 14162 #### [place] [address] RBC 4.29 x 10EE6/UL Normal 4.10 - 5.30 [facility] Comment on above: Performed By: #### 2 73119 #### [facility],[address] [place], [place] [address] WBC 8.5 x 10EE3/UL Normal 4.5 - 10.8 [facility] Comment on above: Performed By: #### 2 18234 #### [facility],[address] [place] [address] 88928 CMP with eGFRon 12-01-2023 AGE 43 years Normal [facility] Comment on above: Performed By: #### 2 58475 #### [facility],[address] [place] [address] 05233 Albumin [Mass/Vol] 3.6 g/dL Normal 3.4 - 5.0 [facility] Comment on above: Performed By: #### 2 17533 #### [facility],[address] [place], [place] [address] Albumin/Globulin [Mass ratio] 1.0 {ratio} Normal 0.9 - 1.6 [facility] Comment on above: Performed By: #### 2 56164 #### [facility],[address] [place] [address] 41499 ALK PHOS 83 U/L Normal 46 - 116 [facility] Comment on above: Performed By: #### 2 34050 #### [facility],[address] [place] [address] 90551 ALT [Catalytic activity/Vol] 32 U/L Normal 16 - 63 [facility] Comment on above: Performed By: #### 2 21158 #### [facility],[address] [place] [address] 01700 Anion gap [Moles/Vol] 10 mmol/L Normal 10 - 20 [facility] Comment on above: Performed By: #### 2 52097 #### [facility],[address] [place] [address] 85046 AST [Catalytic activity/Vol] 21 U/L Normal 13 - 39 [facility] Comment on above: Performed By: #### 2 82974 #### [facility],[address] [place] [address] 37195 B/C RATIO 12 ratio Normal 0 - 30 [facility] Comment on above: Performed By: #### 2 39524 #### [facility],[address] [place] [address] 80470 Bilirubin [Mass/Vol] 0.4 mg/dL Normal 0.2 - 1.0 [facility] Comment on above: Performed By: #### 2 08518 #### [facility],[address] [place] [address] 39835 Calcium [Mass/Vol] 8.6 mg/dL Normal 8.5 - 10.1 [facility] Comment on above: Performed By: #### 2 90781 #### [facility],[address] [place], [place] [address] Chloride [Moles/Vol] 102 mmol/L Normal 98 - 107 [facility] Comment on above: Performed By: #### 2 11144 #### [facility],[address] [place], [place] [address] CMP with eGFR Normal [facility] Comment on above: Result Comment: COMP REHENSIVE METABOLIC PANEL Performed By: #### 2 25156 #### [facility],[address] [place] [address] 03729 CO2 [Moles/Vol] 29.0 mmol/L Normal 21.0 - 32.0 [facility] Comment on above: Performed By: #### 2 88029 #### [facility],[address] [place] [address] 47750 Creatinine [Mass/Vol] 0.90 mg/dL Normal 0.55 - 1.02 [facility] Comment on above: Performed By: #### 2 77360 #### [facility],[address] [place] [address] 69402 GFR/1.73 sq M.predicted among non-blacks MDRD (S/P/Bld) [Vol rate/Area] mL/min/{1.73_m2} Normal 60 - 999 [facility] Comment on above: Performed By: #### 2 74668 #### [facility],[address] [place] [address] 19741 Result Comment: ACCO RDING TO THE NATIONAL KIDNEY DISEASE EDUCATION PROGRAM(NKDE), A NORMAL eGFR IS A VALUE GREATER THAN OR EQUAL TO 60 ML/MIN/1.73 SQ METERS. CHRONIC KIDNEY DISEASE: <60mL/MIN/1.73 SQ METERS KIDNEY FAILURE: <15mL/MIN/1.73 SQ METERS THIS TEST SHOULD ONLY BE USED FOR PATIENTS 18 YEARS OF AGE AND OLDER. Globulin (S) [Mass/Vol] 3.7 g/dL Normal 1.5 - 3.8 [facility] Comment on above: Performed By: #### 2 40574 #### [facility],[address] [place] [address] 51001 Glucose [Mass/Vol] 94 mg/dL Normal 74 - 106 [facility] Comment on above: Performed By: #### 2 52869 #### [facility],[address] [place] [address] 28902 Potassium [Moles/Vol] 4.1 mmol/L Normal 3.5 - 5.1 [facility] Comment on above: Performed By: #### 2 33488 #### [facility],[address] [place] [address] 59543 Protein [Mass/Vol] 7.3 g/dL Normal 6.4 - 8.2 [facility] Comment on above: Performed By: #### 2 23382 #### [facility],[address] [place] [address] 42034 Sodium [Moles/Vol] 137 mmol/L Normal 136 - 145 [facility] Comment on above: Performed By: #### 2 66094 #### [facility],[address] [place] [address] 57927 Urea nitrogen [Mass/Vol] 11 mg/dL Normal 7 - 18 [facility] Comment on above: Performed By: #### 2 00118 #### [facility],[address] [place] [address] 26979 LIPID PROFILEon 12-01-2023 Cholesterol [Mass/Vol] 166 mg/dL Normal 0 - 240 [facility] Comment on above: Performed By: #### 2 00527 #### [facility],[address] [place] [address] 98370 Cholesterol in HDL [Mass/Vol] 75 mg/dL High 40 - 60 [facility] Comment on above: Performed By: #### 2 31389 #### [facility],[address] [place] [address] 79974 Cholesterol in LDL [Mass/Vol] 77 mg/dL Normal 0 - 129 [facility] Comment on above: Performed By: #### 2 72101 #### [facility],[address] [place] [address] 47313 Cholesterol.total/Lindy sterol in HDL [Mass ratio] 2.2 {ratio} Normal 0.0 - 5.0 [facility] Comment on above: Performed By: #### 2 26907 #### [facility],[address] [place] [address] 07683 Lipid 1996 panel Normal [facility] Comment on above: Result Comment: LIPI D PROFILE Performed By: #### 2 84777 #### [facility],[address] [place] [address] 63572 Triglyceride [Mass/Vol] 72 mg/dL Normal 0 - 150 [facility] Comment on above: Performed By: #### 2 29270 #### [facility],[address] [place] [address] 22914 T4-FREE (FREE THYROXINE)on 0 12-01-2023 Free T4 [Mass/Vol] 0.72 ng/dL Low 0.76 - 1.46 [facility] Comment on above: Result Comment: P otential of falsely elevated results when biotin concentrations are > 10 ng/mL. Performed By: #### 2 77429 #### [facility],[address] [place] [address] TSHon 12-01-2023 TSH Qn 0.98 m[IU]/L Normal 0.35 - 3.74 [facility] Comment on above: Performed By: #### 2 62124 #### [facility],[address] [place] [address] CBC + DIFFon 07-15-2023 Baso # 0.03 x10EE3/UL Normal 0.00 - 0.10 [facility] Comment on above: Performed By: #### 2 74146 #### [facility],[address] [place] [address] Basophils/100 WBC (Bld) 0.4 % Normal 0.0 - 2.0 [facility] Comment on above: Performed By: #### 2 16413 #### [place] [address] CBC + DIFF Normal [facility] Comment on above: Result Comment: CBC- COMPLETE BLOOD COUNT Performed By: #### 2 21011 #### [place] [address] EO # 0.06 x10EE3/UL Normal 0.00 - 0.50 [facility] Comment on above: Performed By: #### 2 70792 #### [place] [address] Eosinophils/100 WBC (Bld) 0.7 % Normal 0.0 - 7.0 [facility] Comment on above: Performed By: #### 2 88862 #### [place] [address] Erythrocyte distribution width (RBC) [Ratio] 13.2 % Normal 12.0 - 15.6 [facility] Comment on above: Performed By: #### 2 26309 #### [place] [address] Hematocrit (Bld) [Volume fraction] 39.8 % Normal 34.0 - 46.0 [facility] Comment on above: Performed By: #### 2 64396 #### [facility],[address] [place] [address] Hemoglobin (Bld) [Mass/Vol] 13.3 g/dL Normal 12.0 - 16.0 [facility] Comment on above: Performed By: #### 2 36613 #### [facility],[address] [place] [address] Lymph # 2.60 x10EE3/UL Normal 0.80 - 2.80 [facility] Comment on above: Performed By: #### 2 21127 #### [facility],[address] [place] [address] Lymphocytes/100 WBC (Bld) 31.6 % Normal 20.0 - 45.0 [facility] Comment on above: Performed By: #### 2 37336 #### [facility],[address] [place] [address] MANUAL DIFF N/A Normal [facility] Comment on above: Performed By: #### 2 05091 #### [facility],[address] [place], [place] [address] MCH (RBC) [Entitic mass] 31 pg Normal 27 - 33 [facility] Comment on above: Performed By: #### 2 94025 #### [facility],[address] [place], [place] [address] MCHC 34 X10 3 Normal 32 - 36 [facility] Comment on above: Performed By: #### 2 81172 #### [facility],[address] [place], [place] [address] MCV (RBC) [Entitic vol] 92 fL Normal 80 - 99 [facility] Comment on above: Performed By: #### 2 63845 #### [facility],[address] [place] [address] Davidson # 0.72 x10EE3/UL Normal 0.20 - 1.00 [facility] Comment on above: Performed By: #### 2 02334 #### [facility],[address] [place] [address] MONOS % 8.8 % Normal 0.0 - 10.0 [facility] Comment on above: Performed By: #### 2 28239 #### [facility],[address] [place] [address] Morphology Deonte (Bld) [Interp] N/A Normal [facility] Comment on above: Performed By: #### 2 44579 #### [facility],[address] [place] [address] Neut # 4.81 x10EE3/UL Normal 1.50 - 7.10 [facility] Comment on above: Performed By: #### 2 21852 #### [facility],[address] [place] [address] Neutrophils/100 WBC (Bld) 58.6 % Normal 46.0 - 76.0 [facility] Comment on above: Performed By: #### 2 26323 #### [facility],[address] [place] [address] PLATELET 287 x10EE3/UL Normal 150 - 450 [facility] Comment on above: Performed By: #### 2 30897 #### [facility],[address] [place] [address] Platelet mean volume (Bld) [Entitic vol] 8.0 fL Normal 6.6 - 10.5 [facility] Comment on above: Result Comment: AUTO MATED DIFFERENTIAL Performed By: #### 2 64930 #### [facility],[address] [place] [address] RBC 4.31 x 10EE6/UL Normal 4.10 - 5.30 [facility] Comment on above: Performed By: #### 2 88520 #### [place] [address] [place] [address],[place] [address] WBC 8.2 x 10EE3/UL Normal 4.5 - 10.8 [facility] Comment on above: Performed By: #### 2 [id number] #### [facility],[address] [place] [address] CMP with eGFRon 07-15-2023 AGE 43 years Normal [facility] Comment on above: Performed By: #### 2 [id number] #### [facility],[address] [place] [address] Albumin [Mass/Vol] 3.5 g/dL Normal 3.4 - 5.0 [facility] Comment on above: Performed By: #### 2 83980 #### [facility],[address] [place] [address] 18072 Albumin/Globulin [Mass ratio] 0.9 {ratio} Normal 0.9 - 1.6 [facility] Comment on above: Performed By: #### 2 93428 #### [facility],[address] [place] [address] ALK PHOS 76 U/L Normal 46 - 116 [facility] Comment on above: Performed By: #### 2 17672 #### [facility],[address] [place] [address] 74153 ALT [Catalytic activity/Vol] 39 U/L Normal 16 - 63 [facility] Comment on above: Performed By: #### 2 07368 #### [facility],[address] [place] [address] 19068 Anion gap [Moles/Vol] 16 mmol/L Normal 10 - 20 [facility] Comment on above: Performed By: #### 2 70943 #### [facility],[address] [place] [address] 57038 AST [Catalytic activity/Vol] 24 U/L Normal 13 - 39 [facility] Comment on above: Performed By: #### 2 71198 #### [facility],[address] [place] [address] 88197 B/C RATIO 17 ratio Normal 0 - 30 [facility] Comment on above: Performed By: #### 2 19910 #### [facility],[address] [place] [address] 26136 Bilirubin [Mass/Vol] 0.4 mg/dL Normal 0.2 - 1.0 [facility] Comment on above: Performed By: #### 2 96397 #### [facility],[address] [place] [address] Calcium [Mass/Vol] 8.7 mg/dL Normal 8.5 - 10.1 [facility] Comment on above: Performed By: #### 2 55630 #### [facility],[address] [place] [address] Chloride [Moles/Vol] 104 mmol/L Normal 98 - 107 [facility] Comment on above: Performed By: #### 2 62701 #### [facility],[address] [place] [address]2621 CMP with eGFR Normal [facility] Comment on above: Result Comment: COMP REHENSIVE METABOLIC PANEL Performed By: #### 2 72597 #### [facility],[address] [place] [address] 85563 CO2 [Moles/Vol] 25.2 mmol/L Normal 21.0 - 32.0 [facility] Comment on above: Performed By: #### 2 97720 #### [facility],[address] [place] [address]79 Creatinine [Mass/Vol] 0.90 mg/dL Normal 0.55 - 1.02 [facility] Comment on above: Performed By: #### 2 12949 #### [facility],[address] [place] [address] GFR/1.73 sq M.predicted among non-blacks MDRD (S/P/Bld) [Vol rate/Area] mL/min/{1.73_m2} Normal 60 - 999 [facility] Comment on above: Performed By: #### 2 01204 #### [facility],[address] [place] [address] 89005 Result Comment: ACCO RDING TO THE NATIONAL KIDNEY DISEASE EDUCATION PROGRAM(NKDE), A NORMAL eGFR IS A VALUE GREATER THAN OR EQUAL TO 60 ML/MIN/1.73 SQ METERS. CHRONIC KIDNEY DISEASE: <60mL/MIN/1.73 SQ METERS KIDNEY FAILURE: <15mL/MIN/1.73 SQ METERS THIS TEST SHOULD ONLY BE USED FOR PATIENTS 18 YEARS OF AGE AND OLDER. Globulin (S) [Mass/Vol] 3.9 g/dL High 1.5 - 3.8 [facility] Comment on above: Performed By: #### 2 63820 #### [address] [address] Glucose [Mass/Vol] 106 mg/dL Normal 74 - 106 [facility] Comment on above: Performed By: #### 2 00885 #### [address] [address] Potassium [Moles/Vol] 3.8 mmol/L Normal 3.5 - 5.1 [facility] Comment on above: Performed By: #### 2 73369 #### [address] [address] Protein [Mass/Vol] 7.4 g/dL Normal 6.4 - 8.2 [facility] Comment on above: Performed By: #### 2 11731 #### [address] [address] Sodium [Moles/Vol] 141 mmol/L Normal 136 - 145 [facility] Comment on above: Performed By: #### 2 03472 #### [address] [address] Urea nitrogen [Mass/Vol] 15 mg/dL Normal 7 - 18 [facility] Comment on above: Performed By: #### 2 76563 #### [facility], [facility],[address] [place] [address] LABORATORYOrdered By: SYSTEM SYSTEM on 01-19-2023 Albumin [...] Invalid Interpretation Code 0.0 - 2.5 % AH Workflow SS Bilirubin [Mass/Vol] 0.30 mg/dL [...] Invalid Interpretation Code 1.5 - 3.8 G/dL [facility] Glucose [Mass/Vol] 91 mg/dL Invalid Interpretation [...] 05-25-2022 HCG ( test) Ql (U) Negative [facility] Comment on above: Very dilute urine sp ecimens, as indicated by a low specificgravity, may not contain internet sales representative levels of hCG. If is still suspected, a first morning urinespecimen should be collected 48 hours later and tested. Absolute lymphocyte countOrd ered By: Dr. Liriano on 05-19-2022 Lymphocytes Auto (Unsp spec) [#/Vol] 3.05 10*3/uL 0.83-4.51 [facility] Basophil percentageOrdered B y: Dr. Liriano on 05-19-2022 Basophils/100 WBC (Bld) 0.5 % 0-1 [facility] Bilirubin [Mass/Vol] 0.30 mg/dL 0.20-1.00 [facility] Comment on above: For patients on eltr ombopag therapy, use of Dimension [employer] TBIL is not recommended. Chloride [Moles/Vol] 102 mmol/L 98-107 [facility] Eosinophils/100 WBC (Bld) 0.6 % 0-5 [facility] Glucose [Mass/Vol] 100 mg/dL 74-106 [facility] Comment on above: Fasting Glucose resu lt from 100 to 125 mg/dL suggests IMPAIRED HOMEOSTASIS per A.D.A. criteria. Neutrophils (Bld) [#/Vol] 6.1 10*3/uL 2.0-7.7 [facility] Neutrophils/100 WBC (Bld) 60.9 % 47-70 [facility] Potassium [Moles/Vol] 3.9 mmol/L 3.5-5.1 [facility] Protein [Mass/Vol] 7.4 g/dL 6.4-8.2 [facility] Sodium [Moles/Vol] 138 mmol/L 136-145 [facility] WBC (Bld) [#/Vol] 10.0 10*3/uL 4.4-11.0 [facility] Blood erythrocytes count (nu mber/volume)Ordered By: Dr. Liriano on 05-19-2022 RBC (Bld) [#/Vol] 4.03 10*6/uL 4.2-5.4 [facility] Blood hemoglobin measurement (mass/volume)Ordered By: Dr. Liriano on 05-19-2022 Hemoglobin (Bld) [Mass/Vol] 13.2 g/dL 12.0-15.0 [facility] Blood lymphocytes/100 leukoc ytesOrdered By: Dr. Liriano on 05-19-2022 Lymphocytes/100 WBC (Bld) 30.7 % 19-41 [facility] Blood monocytes/100 leukocyt esOrdered By: Dr. Liriano on 05-19-2022 Monocytes/100 WBC (Bld) 7.1 % 0-10 [facility] Blood platelet mean volumeOr dered By: Dr. Liriano on 05-19-2022 Platelet mean volume (Bld) [Entitic vol] 9.7 fL 6.2-12.0 [facility] Determination of erythrocyte mean corpuscular volume (MCV)Ordered By: Dr. Liriano on 05-19-2022 MCV (RBC) [Entitic vol] 99.3 fL 81-99 [facility] Hematocrit Auto (Bld) [Volum e fraction]Ordered By: Dr. Liriano on 05-19-2022 Hematocrit (Bld) [Volume fraction] 40.0 % 37-47 [facility] Laboratory - Chemistry and C hemistry - challengeOrdered By: Dr. Liriano on 05-19-2022 ALP [Catalytic activity/Vol] 63 U/L 45-117 [facility] ALT [Catalytic activity/Vol] 33 U/L 13-56 [facility] CO2 [Moles/Vol] 27.0 mmol/L 21.0-32.0 [facility] Globulin (S) [Mass/Vol] 3.4 g/dL 2.2-4.2 [facility] Urea nitrogen/Creatinine [Mass ratio] 17.3 mg/mg 10-20 [facility] Laboratory - Hematology and Cell countsOrdered By: Dr. Liriano on 05-19-2022 Erythrocyte distribution width (RBC) [Entitic vol] 47.7 fL 35.1-43.9 [facility] Erythrocyte distribution width (RBC) [Ratio] 13.2 % 11.6-14.6 [facility] Immature granulocytes/100 WBC (Bld) 0.200 % 0.0-0.9 [facility] Comment on above: IG% - Immature Granu locytes (promyelocytes, myelocytes and metamyelocytes) > 1% indicates that a LEFT SHIFT is Present. MCH (RBC) [Entitic mass] 32.8 pg 27.0-32.0 [facility] Nucleated RBC/100 WBC (Bld) [Ratio] 0 % 0-5 [facility] MCHC Auto (RBC) [Mass/Vol]Or dered By: Dr. Liriano on 05-19-2022 MCHC (RBC) [Mass/Vol] 33.0 g/dL 32-36 [facility] No Panel InformationOrdered By: Dr. Liriano on 05-19-2022 Estimated GFR (MDRD) Amer 86 mL/min >60 [facility] Comment on above: GFR Calc Estimated GFR (MDRD) Non-Af Amer 71 mL/min >60 [facility] Comment on above: Non- GFR Calc Platelets bldOrdered By: Dr. Liriano on 05-19-2022 Platelets (Bld) [#/Vol] 271 10*3/uL 150-450 [facility] Serum or plasma albumin chey urement (mass/volume)Ordered By: Dr. Liriano on 05-19-2022 Albumin [Mass/Vol] 4.0 g/dL 3.2-5.0 [facility] Serum or plasma albumin/glob ulin mass ratioOrdered By: Dr. Liriano on 05-19-2022 Albumin/Globulin [Mass ratio] 1.2 {ratio} 0.9-2.4 [facility] Serum or plasma calcium chey urement (mass/volume)Ordered By: Dr. Liriano on 05-19-2022 Calcium [Mass/Vol] 8.9 mg/dL 8.5-10.1 [facility] Serum or plasma creatinine m easurement (mass/volume)Ordered By: Dr. Liriano on 05-19-2022 Creatinine [Mass/Vol] 0.92 mg/dL 0.55-1.02 [facility] Comment on above: The validity of the calculated GFR & GFRAA in patients over 70 years has not been determined. Clinical correlation is essential. Serum or plasma urea nitroge n measurement (mass/volume)Ordered By: Dr. Liriano on 05-19-2022 Urea nitrogen [Mass/Vol] 16 mg/dL 7-18 [facility] Thin prep Papanicolaou smear with manual screeningOrdered By: Dr. Liriano on 05-19-2022 Thin prep Papanicolaou smear with manual screening 18 U/L 15-37 [facility] Thin prep Papanicolaou smear with manual screening 9 5-15 [facility] .Auto Diffon 02-19-2022 Basophil, Absolute 0.0 10 3/mcL Normal 0.0-0.3 [facility] ([place]) Comment on above: Performed By: #### C MP, GFR #### [place] [address] Eosinophil, Absolute 0.0 10 3/mcL Normal 0.0-0.7 [facility] ([place]) Comment on above: Performed By: #### C MP, GFR #### [place] [address] Lymphocyte, Absolute 2.2 10 3/mcL Normal 0.9-4.3 [facility] ([place]) Comment on above: Performed By: #### C MP, GFR #### [place] [address] Monocyte, Absolute 0.4 10 3/mcL Normal 0.1-1.4 [facility] ([place]) Comment on above: Performed By: #### C MP, GFR #### [place] [address] .Auto DiffOrdered By: SYSTEM SYSTEM on 02-19-2022 Basophils/100 WBC (Bld) 0.5 % Normal 0.0-2.5 A H Workflow SS Comment on above: Performed By: #### C MP, GFR #### [facility] [address] [place], [place] [address] Eosinophils/100 WBC (Bld) 0.7 % Normal 0.0-6.0 AH Workflow SS Comment on above: Performed By: #### C MP, GFR #### [address] [address] Lymphocytes/100 WBC (Bld) 33.6 % Normal 20.0-40.0 [facility] Comment on above: Performed By: #### C MP, GFR #### [address] [address] Monocytes/100 WBC (Bld) 5.7 % Normal 2.0-13.0 A H Workflow SS Comment on above: Performed By: #### C MP, GFR #### [address] [address] Neutrophils/100 WBC (Bld) 59.5 % Normal 50.0-75.0 [facility] Workflow [facility] Comment on above: Performed By: #### C MP, GFR #### [address] [address] .GFRon 02-19-2022 GFR Non- >60 Normal [facility] ([place]) Comment on above: Result Comment: GFR Population [...] By: #### C MP, GFR #### [address] [address] GFR >60 Normal [facility] ([place]) Comment on above: Result Comment: GFR Population [...] By: #### C MP, GFR #### [address] [address] .NEUABSon 02-19-2022 Neutrophil, Absolute 3.9 10 3/mcL Normal 2.3-8.1 [facility] ([place]) Comment on above: Performed By: #### C MP, GFR #### [place] [address] CBCOrdered By: SYSTEM SYSTEM on 02-19-2022 Erythrocyte distribution width (RBC) [Ratio] 13.7 % Normal 11.5-15.5 [facility] Workflow SS Comment on above: Performed By: #### C MP, GFR #### [place] [address] Hematocrit (Bld) [Volume fraction] 39.6 % Normal 34.0-46.0 [facility] Workflow SS Comment on above: Performed By: #### C MP, GFR #### [place] [address] MCH (RBC) [Entitic mass] 32.0 pg Normal 27.0-33.0 AH Workflow SS Comment on above: Performed By: #### C MP, GFR #### [place] [address] MCHC 33.6 G/dL Normal 32.0-36.0 [facility] Workflow SS Comment on above: Performed By: #### C MP, GFR #### [place] [address] MCV (RBC) [Entitic vol] 95.1 fL Normal 80.0-99.0 A H Workflow SS Comment on above: Performed By: #### C MP, GFR #### [place] [address] Platelet mean volume (Bld) [Entitic vol] 8.0 fL Normal 6.6-10.5 [facility] Comment on above: Performed By: #### C MP, GFR #### [place] [address] CBCon 02-19-2022 Hgb 13.3 G/dL Normal 12.0-16.0 [facility] ([place]) Comment on above: Performed By: #### C MP, GFR #### [place] [address] Platelet 257 10 3/mcL Normal 150-450 [facility] ([place]) Comment on above: Performed By: #### C MP, GFR #### [place] [address] RBC 4.16 10 6/mcL Normal 4.10-5.30 [facility] ([place]) Comment on above: Performed By: #### C MP, GFR #### [place] [address] WBC 6.6 10 3/mcL Normal 4.5-10.8 [facility] ([place]) Comment on above: Performed By: #### C MP, GFR #### [place] [address] CMPon 02-19-2022 Albumin Level 4.1 G/dL Normal 3.2-4.8 [facility] ([place]) Comment on above: Performed By: #### C MP, GFR #### [place] [address] ALT [Catalytic activity/Vol] 25 U/L Normal 10-49 [facility] ([place]) Comment on above: Performed By: #### C MP, GFR #### [place] [address] Bili Total 0.30 mg/dL Normal 0.20-1.20 [facility] ([place]) Comment on above: Result Comment: Use of this assay is not recommended for patients undergoing treatment with eltrombopag due to the potential for falsely elevated results. Performed By: #### C MP, GFR #### [address] [address] BUN/Creatinine Ratio 15.9 ratio Normal 10.0-22.0 [facility] ([place]) Comment on above: Performed By: #### C MP, GFR #### [address] [address] Total Protein 7.3 G/dL Normal 5.7-8.2 [facility] ([place]) Comment on above: Result Comment: No te - New Reference Range in effect 19 Performed By: #### C MP, GFR #### [address] [address] CMPOrdered By: SYSTEM SYSTEM on 02-19-2022 Albumin/Globulin [Mass ratio] 1.3 {ratio} Normal 0.9-1.6 AH ADM SS Comment on above: Performed By: #### C MP, GFR #### [address] [address] ALP [Catalytic activity/Vol] 81 U/L Normal 38-126 AH ADM SS Comment on above: Performed By: #### C MP, GFR #### [address] [address] AST [Catalytic activity/Vol] 19 U/L Normal 8-34 [facility]M SS Comment on above: Performed By: #### C MP, GFR #### [address] [address] Calcium [Mass/Vol] 9.5 mg/dL Normal 8.7-10.4 [facility] ADM SS Comment on above: Performed By: #### C MP, GFR #### [address] [address] Chloride [Moles/Vol] 106 mmol/L Normal 98-110 AH A DM SS Comment on above: Performed By: #### C MP, GFR #### [address] [address] CO2 [Moles/Vol] 27 mmol/L Normal 22-32 AH ADM SS Comment on above: Performed By: #### C MP, GFR #### [place] [id number] Creatinine [Mass/Vol] 0.88 mg/dL Normal 0.50-1.20 [facility] ADM SS Comment on above: Performed By: #### C MP, GFR #### [address] [address] Electrolyte Balance 6.0 mEq/L Normal 4.0-15.0 AH AD M SS Comment on above: Performed By: #### C MP, GFR #### [address] [address] Globulin 3.2 G/dL Normal 1.5-3.8 [facility] ADM SS Comment on above: Performed By: #### C MP, GFR #### [address] [address] Glucose [Mass/Vol] 127 mg/dL High 70-110 AH ADM SS Comment on above: Performed By: #### C MP, GFR #### [address] [address] Potassium [Moles/Vol] 4.1 mmol/L Normal 3.5-5.0 AH ADM SS Comment on above: Performed By: #### C MP, GFR #### [address] [address] Sodium [Moles/Vol] 139 mmol/L Normal 136-145 AH ADM SS Comment on above: Performed By: #### C MP, GFR #### [address] [address] Urea nitrogen [Mass/Vol] 14.0 mg/dL Normal 8.0-22.0 AH ADM SS Comment on above: Performed By: #### C MP, GFR #### [address] [address] LABORATORYOrdered By: SYSTEM SYSTEM on 02-19-2022 Albumin [...] U SE ONLY*on 01-31-2021 Interpretation TBNEG Normal [facility] Comment on above: Performed By: #### I NTPGP #### [facility] Immuno Assay [address] [place] [address] Mitogen minus Nil >10 Normal [facility] Comment on above: Performed By: #### I NTPGP #### [facility] [address] [place] [address] TB NIL 0.03 IU/mL Normal [facility] Comment on above: Performed By: #### I NTPGP #### [facility] [address] [place] [phone] TB Result NEGAT Normal Negative [facility] Comment on above: Performed By: #### I NTPGP #### [facility] [address] [place] [address] TB1 Ag minus Nil 0.00 IU/mL Normal <0.35 [facility] Comment on above: Performed By: #### I NTPGP #### [facility] [address] [place] [address] TB2 Ag minus Nil 0.01 IU/mL Normal <0.35 [facility] Comment on above: Performed By: #### I NTPGP #### [facility] [address] [place] [address] ZOE by IFAon 01-20-2021 ZOE Pattern ANANOT Normal [facility] Comment on above: Performed By: #### A HBSQ, HBSAG, AHCV1B, RF #### [facility] [address] [place] [phone] #### ANAIFS, CCP #### [facility] [address] ZOE Titer Normal Negative [facility] Comment on above: Result Comment: Nega tive Normal range : negatie at <1:80 serum dilution. Performed By: #### A HBSQ, HBSAG, AHCV1B, RF #### [facility] [address] [place] [phone] #### ANAIFS, CCP #### [facility] [address] [place], [place] [address] Nuclear Ab IF (S) [Titer] Negative Normal Negative [facility] Comment on above: Performed By: #### A HBSQ, HBSAG, AHCV1B, RF #### [facility] [address] [place] [address] #### ANAIFS, CCP #### [facility] [address] [place] [address] CCP Antibody, IgGon 01-21-20 21 CCP Antibody, IgG <15 Normal <20 [facility] Comment on above: Performed By: #### A HBSQ, HBSAG, AHCV1B, RF #### [facility] [address] [place] [address] #### ANAIFS, CCP #### [facility] [address] [place] [address] Hep C Ab IA w/Confon 021 Hepatitis C Ab IA NEGAT Normal Negative [facility] Comment on above: Performed By: #### A HBSQ, HBSAG, AHCV1B, RF #### [facility] [address] [place] [address] #### ANAIFS, CCP #### [facility] [address] [place] [address] HepB SurfaceAb,Quanton 01-20 HepB SurfaceAb,Quant <8.00 Normal <8.00 [facility] Comment on above: Performed By: #### A HBSQ, HBSAG, AHCV1B, RF #### [facility] [address] [place] [address] #### ANAIFS, CCP #### [facility] [address] [place], [place] [address] Hepatitis B Surf. Agon 01-20 Hepatitis B Surf. Ag NEGAT Normal Negative [facility] Comment on above: Performed By: #### A HBSQ, HBSAG, AHCV1B, RF #### [facility] [address] [place] [phone] #### ANAIFS, CCP #### [facility] [address] [place] [phone] Rheumatoid Factoron 01-20-20 21 Rheumatoid Factor 14 IU/mL Normal <16 [facility] Comment on above: Performed By: #### A HBSQ, HBSAG, AHCV1B, RF #### [facility] [address] [place] [phone] #### ANAIFS, CCP #### [facility] [address] [place] [phone] Arash 10-31-2020 TSI <0.10 Normal <0.55 [facility] Comment on above: Performed By: #### H SCRP #### [facility] [address] [place] [phone] #### TSIGIM #### [facility] [address] [place] [phone] TSI Qualitative NEGAT Normal Negative [facility] Comment on above: Performed By: #### H SCRP #### [facility] [address] [place] [phone] #### TSIGIM #### [facility] [address] [place] [phone] Ultra-sensitive CRPon 2020 UltraSens C-ReacProt 2.9 mg/L Normal <3.1 [facility] Comment on above: Performed By: #### H SCRP #### [facility] [address] [place] [phone] #### TSIGIM #### [facility] [address] [place], [place] [address] Vital Signs Date Time Vital Sign Value Performing Clinician Jeronimo jane 01-16-2025 07:27-0400 Body temperature 97.9 [degF] Coral Martinez MD Work Phone: [facility] 01-16-2025 07:27-0400 Diastolic blood pressure 61 mm[Hg] Coral Martinez MD Work Phone: [facility] 01-16-2025 07:27-0400 Heart rate 73 /min Coral Martinez MD Work Phone: [facility] 01-16-2025 07:27-0400 Respiratory rate 16 /min Coral Martinez MD Work Phone: [facility] 01-16-2025 07:27-0400 SaO2% (BldA) [Mass fraction] 100 % Coral Martinez MD Work Phone: [facility] 01-16-2025 07:27-0400 Systolic blood pressure 106 mm[Hg] Coral Martinez MD Work Phone: [facility] 01-16-2025 05:55-0400 Body height 154.94 cm Coral Martinez MD Work Phone: [facility] 01-16-2025 05:55-0400 Body mass index (BMI) [Ratio] 35.8 kg/m2 Coral Martinez MD Work Phone: [facility] 01-16-2025 05:55-0400 Body weight 86 kg Coral Martinez MD Work Phone: [facility] 12-12-2024 07:20-0400 Body temperature 96.9 [degF] Coral Martinez MD Work Phone: [facility] 12-12-2024 07:20-0400 Diastolic blood pressure 67 mm[Hg] Coral Martinez MD Work Phone: [facility] 12-12-2024 07:20-0400 Heart rate 74 /min Coral Martinez MD Work Phone: [facility] 12-12-2024 07:20-0400 Respiratory rate 16 /min Coral Martinez MD Work Phone: [facility] 12-12-2024 07:20-0400 SaO2% (BldA) [Mass fraction] 100 % Coral Martinez MD Work Phone: [facility] 12-12-2024 07:20-0400 Systolic blood pressure 107 mm[Hg] Coral Martinez MD Work Phone: [facility] 12-12-2024 05:59-0400 Body height 154.94 cm Coral Martinez MD Work Phone: [facility] 12-12-2024 05:59-0400 Body mass index (BMI) [Ratio] 38.7 kg/m2 Coral Martinez MD Work Phone: [facility] 12-12-2024 05:59-0400 Body weight 92.98 kg Coral Martinez MD Work Phone: [facility] 10-14-2024 21:50-0400 Body temperature 98.1 [degF] Jennifer Moran SOLDERER-C Work Phone: [facility] 10-14-2024 21:50-0400 Diastolic blood pressure 61 mm[Hg] Jennifer Moran SOLDERER-C Work Phone: [facility] 10-14-2024 21:50-0400 Heart rate 75 /min Jennifer Moran SOLDERER-C Work Phone: [facility] 10-14-2024 21:50-0400 Respiratory rate 16 /min Jennifer Moran SOLDERER-C Work Phone: [facility] 10-14-2024 21:50-0400 SaO2% (BldA) [Mass fraction] 99 % Jennifer Moran SOLDERER-C Work Phone: [facility] 10-14-2024 21:50-0400 Systolic blood pressure 120 mm[Hg] Jennifer Moran SOLDERER-C Work Phone: [facility] 10-14-2024 17:43-0400 Body height 154.94 cm Jennifer Moran SOLDERER-C Work Phone: [facility] 10-14-2024 17:43-0400 Body mass index (BMI) [Ratio] 40.7 kg/m2 Jennifer Moran SOLDERER-C Work Phone: [facility] 10-14-2024 17:43-0400 Body weight 97.74 kg Jennifer Moran SOLDERER-C Work Phone: [facility] 05-25-2022 09:30-0500 Diastolic blood pressure 70 mm[Hg] [facility] 05-25-2022 09:30-0500 Heart rate 74 /min [facility] 05-25-2022 09:30-0500 Respiratory rate 16 /min [facility] 05-25-2022 09:30-0500 SaO2% (BldA) [Mass fraction] 95 % [facility] 05-25-2022 09:30-0500 Systolic blood pressure 96 mm[Hg] [facility] 05-25-2022 08:52-0500 Body temperature 98.5 [degF] [facility] 05-25-2022 08:30-0500 Inhaled oxygen flow rate 3 L/min [facility] 05-25-2022 06:40-0500 Body height 154.94 cm [facility] 05-25-2022 06:40-0500 Body mass index (BMI) [Ratio] 44.1 kg/m2 [facility] 05-25-2022 06:40-0500 Body weight 106 kg [facility] Encounters Encounter Date Encounter Type Care Provider Facility Start: 02-27-2025 End: 02-27-2025 ambulatory Chalon Juan Facility:[facility] Start: 02-20-2025 End: 02-20-2025 ambulatory [facility] Facility:[facility] Start: 01-29-2025 Encounter for genera l adult medical examination without abnormal findings [facility] Start: 01-23-2025 End: 01-23-2025 ambulatory Coral Martinez MD Work Phone: [facility] [place] Start: 01-23-2025 End: 01-23-[address] Coral Martinez MD -[facility] [place] Work Phone: Start: 01-23-2025 End: 01-23-2025 ambulatory Chalon Juan Facility:[facility] Start: 01-18-2025 End: 01-18-2025 ambulatory Coral Martinez MD Work Phone: -[facility] [place] Start: 01-18-2025 End: 01-18-[address] Clarice Liriano MD -[facility] [place] Work Phone: Start: 01-18-2025 End: 01-18-2025 ambulatory Chaledgardo Juan Facility:[facility] Start: 01-16-2025 ambulatory Chaledgardo Martinez Facility:[facility] Start: 01-16-2025 Non-patient / Non-visit Misael [facility] Start: 01-16-2025 End: 01-16-2025 Admission to same day surgery center [facility] DO -Endoscopy Work Phone: Start: 01-16-2025 End: 01-16-2025 ambulatory Coral Martinez MD Work Phone: -Endoscopy Start: 12-12-2024 ambulatory Chaledgardo Martinez Facility:[facility] Start: 12-12-2024 Non-patient / Non-visit Misael Altamont DO -[facility] Start: 12-12-2024 End: 12-12-2024 Admission to same day surgery center [facility] DO -Endoscopy Work Phone: Start: 12-12-2024 End: 12-12-2024 ambulatory Coral Martinez MD Work Phone: -Endoscopy Start: 11-13-2024 End: 11-13-2024 ambulatory Coral Martinez MD Work Phone: -[facility] [place] Start: 11-13-2024 End: 11-13-[address] Clarice Liriano MD -[facility] [place] Work Phone: Start: 11-13-2024 End: 11-13-2024 ambulatory Chalon Juan Facility:[facility] Start: 10-20-2024 End: 10-20-2024 ambulatory Coral Martinez MD Work Phone: [facility] Work Phone: Start: 10-20-2024 End: 10-20-2024 Patient encounter procedure Sheila BAILEY -[facility] Work Phone: Start: 10-20-2024 End: 10-20-2024 ambulatory Chalon Juan Facility:[facility] Start: 10-17-2024 End: 10-17-2024 Patient encounter procedure Sheila BAILEY -[facility] Work Phone: Start: 10-17-2024 End: 10-17-2024 ambulatory Jennifer Moran NP-C Work Phone: [facility] Work Phone: Start: 10-17-2024 End: 10-17-2024 ambulatory Chalon Juan Facility:[facility] Start: 10-14-2024 End: 10-14-2024 Emergency department patient visit Jennifer Moran NP-C Work Phone: -Emergency Department Work Phone: Start: 09-26-2024 End: 09-26-[address] Clarice Liriano MD -Ultrasound [facility] Work Phone: Start: 09-26-2024 End: 09-26-2024 ambulatory Chalon Juan Facility:[facility] Start: 09-13-2024 End: 09-13-2024 ambulatory Jennifer Moran SOLDERER-C Work Phone: [facility] Work Phone: Start: 09-13-2024 End: 09-13-[address] Clarice Liriano MD -Laboratory, [place] Work Phone: Start: 09-13-2024 End: 09-13-2024 ambulatory Coral Juan Facility:[facility] Start: 07-22-2024 End: 07-22-2024 ambulatory Jennifer Moran SOLDERER-C Work Phone: [facility] Work Phone: Start: 07-22-2024 End: 07-22-[address] Coral Martinez MD -Laboratory Work Phone: Start: 07-22-2024 End: 07-22-2024 ambulatory Moeedgardo Juan Facility:[facility] Start: 06-21-2024 End: 06-21-[address] Clarice Liriano MD -Laboratory, [place] Work Phone: Start: 06-21-2024 End: 06-21-2024 ambulatory Jennifer Moran NP Facility:[facility] Start: 06-12-2024 End: 06-13-2024 ambulatory JENNIFER MORAN [facility] Start: 03-21-2024 End: 03-21-2024 ambulatory Jennifer Moran NP Facility:[facility] Start: 02-09-2024 End: 02-10-2024 ambulatory JENNIFER MORAN [facility] Start: 01-06-2024 End: 01-06-2024 ambulatory CLARICE [facility] Start: 12-01-2023 End: 12-01-2023 ambulatory JENNIFER MORAN [facility] Start: 07-15-2023 End: 07-15-2023 ambulatory CLARICE LIRIANO [facility] Start: 01-19-2023 End: 01-19-[address] CLARICE LIRIANO MD [facility] Start: 05-25-2022 End: 05-25-2022 Admission to same day surgery center [facility] Start: 05-19-2022 End: 05-19-2022 ambulatory [facility] Work Phone: Start: 05-19-2022 End: 05-19-2022 Patient encounter procedure [facility] Start: 02-19-2022 End: 02-20-[address] CLARICE LIRIANO MD. Facility:[facility] Start: 02-19-2022 End: 02-19-[address] CLARICE LIRIANO MD [facility] Procedures Date Procedure Procedure Detail Performing Clinician Start: 01-16-2025 Colonoscopy Coral brannon MD Work Phone: Start: 12-12-2024 Colonoscopy Coral brannon MD Work Phone: Start: 10-14-2024 End: 10-14-2024 Iadna-dna/rna gi pthgn multiplex probe tq 6-11 Jennifer Moran SOLDERER-C Work Phone: Start: 10-14-2024 Computed tomography of abdomen and pelvis with intravenous contrast Jennifer Moran SOLDERER-C Work Phone: Start: 10-14-2024 Estimated creatinine clearance Jennifer Moran SOLDERER-C Work Phone: Start: 10-14-2024 Clostridium difficil e detection Jennifer Moran SOLDERER-C Work Phone: Start: 10-14-2024 Nucleic acid assay Jake Moran SOLDERER-C Work Phone: Start: 09-26-2024 Ultrasonography of abdomen Jennifer Moran SOLDERER-C Work Phone: Start: 07-22-2024 Vitamin D, 25-hydrox y measurement Jennifer Moran SOLDERER-C Work Phone: Comment on above: Vitamin D StatusDefi ciency: <20 ng/mL (50nmol/L)Insufficiency: 20-30 ng/mL (50-75 nmol/L)Sufficiency: 30-100 ng/mL (75-250 nmol/L)Toxicity: >100 ng/mL (>250 nmol/L) Start: 06-21-2024 Measurement of renal function Jennifer DE LA TORRE Work Phone: Comment on above: GFR Calc Start: 05-25-2022 Laparoscopic salpingectomy Plan of Treatment Date Care Activity Detail Author Start: 01-16-2025 Colonoscopy w/biopsy single/multiple COLONOSCOPY AND BIOPSY [facility] Start: 01-16-2025 Colsc flx w/rmvl of tumor polyp lesion snare tq COLONOSCOPY W/LESION REMOVAL [facility] Start: 01-16-2025 Patient discharge [facility] Start: 12-12-2024 Colonoscopy DIAGNOSTIC COLONOSCOPY [facility] Start: 12-12-2024 Colonoscopy flx dx w/collj spec when pfrmd DIAGNOSTIC COLONOSCOPY [facility] Start: 12-12-2024 Patient discharge [facility] Start: 10-20-2024 Protein measurement [facility] Start: 10-14-2024 [facility] Start: 10-14-2024 Enteric precautions [facility] Start: 05-25-2022 Introduction of urin pb catheter [facility] Start: 05-25-2022 Patient discharge [facility] Start: 05-25-2022 Ambulation therapy management [facility] Start: 05-25-2022 Continuous pulse oximetry [facility] Start: 05-25-2022 Elevation of head of bed [facility] Start: 05-25-2022 Incentive spirometry [facility] Start: 05-25-2022 Measuring intake and output [facility] Start: 05-25-2022 Notification of physician [facility] Start: 05-25-2022 End: 05-25-2022 Oxygen therapy [facility] Start: 05-25-2022 Patient education [facility] Start: 05-25-2022 Taking patient vital signs [facility] Start: 05-25-2022 Wound care [facility] Start: 05-25-2022 [facility] CBC W Auto Different ial panel - Blood [facility] Patient Education ED Diarrhea, U nknown Cause [facility] Work Phone: Patient referral [facility] Work Phone: Protein measurement [facility] Payers Date Payer Category Payer Self-pay 2022 Unknown [id number] 2022 Unknown [id number] 1980 Unknown [id number] 2.16.8 40.1.451285.3.579.2.627 1980 Unknown [id number] 2.16.8 40.1.823786.3.579.2.651 1980 Unknown [id number] 2.16.8 40.1.467689.3.579.2.651 1980 Unknown [id number] 2.16.8 40.1.318648.3.579.2.651 1980 Unknown [id number] 2.16.8 40.1.114086.3.579.2.651 1980 Unknown [id number] 2.16.8 40.1.582185.3.579.2.651 Unknown [id number] Unknown [id number] 2.16.8 40.1.075068.3.579.2.462 Unknown [id number] 2.16.8 40.1.272861.3.579.2.462 Unknown [id number] 2.16.8 40.1.640824.3.579.2.462 Unknown [id number] 2.16.8 40.1.027047.3.579.2.462 Unknown [id number] 2.16.8 40.1.869275.3.579.2.462 Unknown [id number] 2.16.8 40.1.693178.3.579.2.462 Unknown [id number] 2.16.8 40.1.561225.3.579.2.462 Unknown [id number] 2.16.8 40.1.234847.3.579.2.462 Unknown [id number] 2.16.8 40.1.742125.3.579.2.462 Unknown [id number] 2.16.8 40.1.573375.3.579.2.462 Unknown [id number] 2.16.8 40.1.980321.3.579.2.462 Unknown [id number] 2.16.8 40.1.899430.3.579.2.462 Unknown [id number] 2.16.8 40.1.998954.3.579.2.462 Unknown [id number] 2.16.8 40.1.990417.3.579.2.462 Unknown [id number] 2.16.8 40.1.654223.3.579.2.462 Unknown [id number] 2.16.8 40.1.895322.3.579.2.462 Unknown [id number] 2.16.8 40.1.992561.3.579.2.462 Unknown [id number] 2.16.8 40.1.827839.3.579.2.462 Social History Date Type Detail Facility Tobacco smoking status [facility] Start: 05-19-2022 Tobacco smoking stat [facility] Unknown if ever smoked [facility] Start: 1980 Sex Assigned At Female [facility] Start: 05-19-2022 End: 01-11-2025 Tobacco smoking status ORIS Ex-smoker (finding) [facility] Start: 07-29-2024 Sex Female (finding) [facility] Not [facility] Medical Equipment Procedure Code Equipment Code Equipment Origin al Text Equipment Identifier Dates Colonoscopy Ligation clip, metallic ([id number] [facility] Start: 01-16-2025 Goals Date Patient Goal Desired Activity /State Mental Status Date Assessment Result Facility 01-16-2025 Cognitive function Level Of Consciousness Drowsy [facility] Work Phone: 01-16-2025 Cognitive function Voice/Name [facility] Work Phone: 12-12-2024 Cognitive function Voice/Name [facility] Work Phone: 05-25-2022 Cognitive function Voice/Name [facility] Work Phone: Clinical Notes 10-14-2024 to 01-16-2025 Note Date & Type Note Facility 01-16-2025 Consult note [facility] 01-16-2025 Procedure note [facility] 01-16-2025 Procedure note [facility] 01-16-2025 History and physi lupe note [facility] 01-16-2025 Note [facility] Medical Records Department [address] [place] [address] History Physical Exam 01/16/25 0638 MR#: [id number] Acct: [id number] Name: NGOC KAUFFMAN Rep #: [id number] : 1980 44 From: Misael Friend PCP: Dr. Coral Martinez MD Status:[facility] Location: [place] [address] HPI - General General Date of Admission: 01/16/25 Date of Service: 01/16/25 Chief Complaint: Lower GI bleed HPI Narrative NGOC KAUFFMAN, is a 44 F who presents with the Chief Complaint: bleeding with bowel movement [facility] ED .12.01 with abdominal pain and bloody [...] Last colonoscopy was in 2021 with diverticula. [facility] Medical History Sleep apnea CPAP (continuous positive [...] 5 mg/0.5 10 mg subcut QWEEK 10/17/24 08/ 0 History mL subcutaneous pen injector (Zepbound) levothyroxine [...] in stool charact (more content not included)... [facility] 01-16-2025 Consult note [facility] 12-12-2024 Consult note [facility] 12-12-2024 Procedure note [facility] 12-12-2024 Procedure note [facility] 12-12-2024 Consult note [facility] 12-12-2024 History and physi lupe note [facility] 12-12-2024 Note [facility] Medical Records Department [address] [place] [address] History Physical Exam 12/12/24 0640 MR#: [id number] Acct: [id number] Name: NGOC KAUFFMAN Rep #: [id number] : 1980 44 From: Misael Moore DO PCP: Dr. Coral Martinez MD Status:[facility] Location: [place] [address] HPI - General General Date of Admission: 12/12/24 Date of Service: 12/12/24 Chief Complaint: Lower GI bleed HPI Narrative NGOC KAUFFMAN, is a 44 F who presents with the Chief Complaint: bleeding with bowel movement [facility] ED 10.14.24 with abdominal pain and bloody [...] Last colonoscopy was in 2021 with diverticula. [facility] Medical History Fatty liver Anxiety Depression Thyroid [...] Rate 75 Re (more content not included)... [facility] 10-17-2024 Evaluation note Diagnosis Onset Date Resolution Bright red blood per rectum acute October 17, 2024 6:55am Diarrhea acute October 17 6:55am [facility] Work Phone: 1(748) 957-187906-10-2025 Evaluation note* Diagnosis Onset Date Resolution Status Admit Date Bright red blood per rectum acute October 17, 2024 6:55am Diarrhea acute October 17 6:55am Bright red blood per rectum acute December 12, 2024 5:21am Diarrhea acute December 12 5:21am [facility] Work Phone: 1(270) 173-621906-10-2025 Evaluation note* Diagnosis Onset Date Resolution Status Admit Date Bright red blood per rectum acute October 17, 2024 6:55am Diarrhea acute October 17 6:55am Bright red blood per rectum acute December 12, 2024 5:21am Diarrhea acute December 12 5:21am Bright red blood per rectum acute January 16, 2025 5:24am Diarrhea acute January 16, 2025 5:24am [facility] Work Phone: 1(379) 222-973906-07-2025 Discharge summary [facility] Medical Records Department [address] [place] [address] Emergency Department Summary 10/14/24 MR#: [id number] Acct: [id number] Name: NGOC KAUFFMAN Rep #:[id number] : [...] albuterol sulfate 90 mcg/actuation 2 inh inhalation [place] N PRN COPD 05/19/22 0 05/25/22 History [...] Method Room Air Room Air Room Air [facility] Narrative Medical decision making narrative: HISTORY OF [...] reviewed, Vital signs reviewed Constitutional: please see [facility] HENT: MMM Eyes: Pupils equal round and [...] MEDICAL DECISION MAKING: Chief Complaint: please see [facility] External records reviewed: Reviewed prior imaging studies: Reviewed abdominal ultrasound from September 2024 which showed fat infiltration of liver, hemangioma Factors affecting care: As per HPI Social determinants of health: Denies drugs or alcohol History obtained from others: none Consults: none [facility] Narrative: The patient was initially tachycardic [...] Discharge home This note was generated with DriveFactor dictation software. It may contain incorrect words, [...] 84.9 H Lymph % (Auto) 7.8 L Davidson % (Auto) 6.3 Eos % (Auto) 0.2 [...] Clarity Cloudy Urine pH 5.0 Ur Specific Lando 1.030 Urine Protein 30 H Urine Glucose [...] abscess, ascites or free air. Reading Location: [facility] Discharge Plan Triage Chief Complaint: GI Bleed [...] MD [Primary Care Provider] - Print Language: [place] Citizen What to do if you have Problems For any increased pain, shortness of breath, bleeding, nausea or vomiting, chestpain, or any unexpected problems, contact your Primary Care Provider. Call [facility] ([phone]) or report tothe closest Emergency Room. Call 911 if necessary. 10/14/242151 Cosigner Signature (if applicable): CC: Dr. Coral Martinez MD ~ Signed [facility]06-07-2025 Radiology Diagnostic study note [facility] Imaging Services [address] [place] [address] Abdomen/Pelvis W IV Cont ONLY MR#: [id number] Acct: [id number] Name: NGOC KAUFFMAN Rep #: [id number] : 1980 F 44 From: Serena Singh MD PCP: Dr. Coral Martinez MD Status: REG ER Study:Abdomen/Pelvis W IV Cont ONLY Date of E xam: 10/14/24 Exam# [id number] Ordering Dr: Mara Combs DO PROCEDURE: ABDOMEN/PELVIS [...] abscess, ascites or free air. Reading Location: [id number] CC: Dr. Coral Martinez MD; Dr. Sam Combs DO ~ Urology Nurse: Signed [facility]06-07-2025 Discharge summary Author Sam Combs [facility] Note Date/Time October 14, 2024 9:52p m [facility] Medical Records Department [address] [place] [address] Emergency Department Summary 10/14/24 MR#: [id number] Acct: [id number] Name: NGOC KAUFFMAN Rep #:[id number] : 1980 44 From: Sam Mcfarland PCP: Dr. Coral Martinez MD Status:REG ER Location: ED HPI History of Present Illness Chief Complaint: GI Bleed [facility] Medical History Wears contact lenses Wears [...] albuterol sulfate 90 mcg/actuation 2 inh inhalation [place] N PRN COPD 05/19/22 0 05/25/22 History [...] MEDICAL DECISION MAKING: Chief Complaint: please see [facility] External records reviewed: Reviewed prior imaging studies: Reviewed abdominal ultrasound from September 2024 which showed fat infiltration of liver, hemangioma Factors affecting care: As per HPI Social determinants of health: Denies drugs or alcohol History obtained from others: none Consults: none [facility] Narrative: The patient was initially tachycardic [...] Discharge home This note was generated with DriveFactor dictation software. It may contain incorrect words, [...] 84.9 H Lymph % (Auto) 7.8 L Davidson % (Auto) 6.3 Eos % (Auto) 0.2 [...] Clarity Cloudy Urine pH 5.0 Ur Specific Lando 1.030 Urine Protein 30 H Urine Glucose [...] abscess, ascites or free air. Reading Location: [facility] Discharge Plan Triage Chief Complaint: GI Bleed [...] MD [Primary Care Provider] - Print Language: [place] Citizen What to do if you have Problems For any increased pain, shortness of breath, bleeding, nausea or vomiting, chestpain, or any unexpected problems, contact your Primary Care Provider. Call [facility] ([phone]) or report to the closest Emergency Room. Call 911 if necessary. 10/14/242151 <Electronically signed by Sam Combs DO> Cosigner Signature (if applicable): CC: Dr. Coral Martinez MD ~ Signed [facility] Work Phone: Consult note Author Andrew Cassidy [facility] Note Date/Time December 12, 2024 6:4 5am [facility] Medical Records Department [address] [place] [address] Pre-Anesthesia Evaluation 12/12/24 0644 MR#: [id number] Acct: [id number] Name: NGOC KAUFFMAN Rep #:[id number] : 1980 44 From: Andrew ZAMUDIO PCP: Dr. Coral Martinez MD Status:REG SD C Y Race: C Location: [place] [address] ASA Classification* ASA Classification ASA Classification: 2 [...] Procedure(s): COLONOSCOPY Anesthesia History Anesthesia History - instrumentation technologist: Anesthesia History - instrumentation technologist Hx Hospitalization No 12/11/24 08:24 Any Problems [...] take am of surgery PONV PONV - instrumentation technologist: PONV - instrumentation technologist Female Yes 12/11/24 08:24 HX of Motion [...] 12/12/24 05:59 Respiratory Assessment Respiratory Assessment - instrumentation technologist: Respiratory Tract Infection Hx - instrumentation technologist Hx Respiratory Tract Infection No 12/11/24 08:24 STOP Sleep Apnea STOP Sleep Apnea - instrumentation technologist: STOP Sleep Apnea - instrumentation technologist Hx Hypertension No 12/11/24 08:24 Hx Sleep [...] Tobacco Use History Tobacco Use History - instrumentation technologist: Tobacco Use History - instrumentation technologist Tobacco Use Smoking Status Former smoker 12/11/24 08:24 Hx Tobacco Use No 12/11/24 08:24 Years Smoking Packs Smoked per Day Smoking Cessation Date was Yes - quit smoking within 15 12/11/24 08:24 within the last 15 years years Hx Smoking Cessation Date Hx Smoking Cessation Counseling Hematologic Medial History Hematologic Hx - instrumentation technologist: Hematologic Medical Hx - bread icer Hx of Blood Transfusion No 12/11/24 08:24 Hx of Transfusion in last 3 No 12/11/24 08:24 Months Date of Last Transfusion (if within last 3 months) Ever experience any problems No 12/11/24 08:24 with transfusion(s)? Specify any problems Hx of Preganancy in last 3 No 12/11/24 08:24 Months Nurse Filling Out Transfusion [id number] 12/11/24 08:24 & Questions: Date: 12/11/24 12/11/24 08:24 Time: :12/11/24 08:24 Patient unable to answer at this time (ie. confused, unrespo /Reproduction History /Reproductive History - instrumentation technologist: /Reproductive Hx- instrumentation technologist Hx Now No 12/11/24 08:24 Gestational Age [...] albuterol sulfate 90 mcg/actuation 2 inh inhalation [place] N PRN COPD 05/19/22 05/25/22 History aerosol [...] by Andrew Cassidy CRNA> Date _ Andrew Nunnt BLISS PRESS OPERATOR Cosigner Signature: Date CC: ~ Signed [facility] Work Phone: Consult note Author Andrew Cassidy [facility] Note Date/Time December 12, 2024 7:5 2am [facility] Medical Records Department [address] [place] [address] [place] [address] Anesthesia Postop Eval I 12/12/24706 MR#: [id number] Acct: [id number] Name: NGOC KAUFFMAN Rep #:[id number] : 1980 44 From: Andrew ZAMUDIO PCP: Dr. Coral Martinez MD Status:REG SD C Y Race: C Location: [place] [address] Anesthesia: Postop Eval I Current Vital Signs [...] by Andrew Cassidy CRNA> Date _ Andrew Khanh BLISS PRESS OPERATOR Cosigner Signature: Date CC: ~ Signed [facility] Work Phone: Consult note Author Junior Núñez [facility] Note Date/Time January 16, 2025 6:31am [facility] Medical Records Department [address] [place] [address] Pre-Anesthesia Evaluation 01/16/25623 MR#: [id number] Acct: [id number] Name: NGOC KAUFFMAN Rep #:[id number] : 1980 44 From: Junior Núñez MD PCP: Dr. Coral Martinez MD Status:REG SD C Y Race: C Location: [place] [address] ASA Classification* ASA Classification ASA Classification: 3 [...] Procedure(s): COLONOSCOPY Anesthesia History Anesthesia History - instrumentation technologist: Anesthesia History - instrumentation technologist Hx Hospitalization No 01/11/25 13:51 Any Problems [...] sips of water?: Yes PONV PONV - instrumentation technologist: PONV - instrumentation technologist Female Yes 01/11/25 13:51 HX of Motion [...] 01/16/25 05:55 Respiratory Assessment Respiratory Assessment - instrumentation technologist: Respiratory Tract Infection Hx - instrumentation technologist Hx Respiratory Tract Infection No 01/11/25 13:51 STOP Sleep Apnea STOP Sleep Apnea - instrumentation technologist: STOP Sleep Apnea - instrumentation technologist Hx Hypertension No 01/11/25 13:51 Hx Sleep [...] Tobacco Use History Tobacco Use History - instrumentation technologist: Tobacco Use History - instrumentation technologist Tobacco Use Smoking Status Former smoker 01/11/25 13:51 Hx Tobacco Use No 01/11/25 13:51 Years Smoking Packs Smoked per Day Smoking Cessation Date was Yes - quit smoking within 15 01/11/25 13:51 within the last 15 years years Hx Smoking Cessation Date Hx Smoking Cessation Counseling Hematologic Medial History Hematologic Hx - instrumentation technologist: Hematologic Medical Hx - bread icer Hx of Blood Transfusion No 01/11/25 13:51 [...] confused, unrespo /Reproduction History /Reproductive History - instrumentation technologist: /Reproductive Hx- instrumentation technologist Hx Now No 01/11/25 13:51 Gestational Age [...] albuterol sulfate 90 mcg/actuation 2 inh inhalation [place] N PRN COPD 05/19/22 05/25/22 History aerosol [...] MD Cosigner Signature: Date CC: ~ Signed [facility] Work Phone: Consult note Author Nomi Moses [facility] Note Date/Time January 16, 2025 7:22am [facility] Medical Records Department [address] [place] [address] Anesthesia Postop Eval I 01/16/25720 MR#: [id number] Acct: [id number] Name: NGOC KAUFFMAN Rep #:[id number] : 1980 44 From: Nomi Moses PCP: Dr. Coral Martinez MD Status:REG SD C Y Race: C Location: [place] [address] Anesthesia: Postop Eval I Current Vital Signs [...] Nomi Yost Signature: Date CC: ~ Signed [facility] Work Phone: Evaluation + Plan note No data available for this section [facility] Evaluation noteNo assessment information available [facility] Work Phone: Evaluation note* Diagnosis Onset Date Resolution Status Admit Date Bright red blood per rectum acute October 17, 2024 6:55am [facility] Work Phone: History and physical note Author Misael Moore [facility] Note Date/Time December 12, 2024 6:4 1am [facility] Medical Records Department [address] [place] [address] History & Physical Exam 12/12/24 0640 MR#: [id number] Acct: [id number] Name: NGOC KAUFFMAN Rep #:[id number] : 1980 44 From: Misael Moore DO PCP: Dr. Coral Martinez MD Status:REG SD C Location: [place] [address] HPI - General General Date of Admission: 12/12/24 Date of Service: 12/12/24 Chief Complaint: Lower GI bleed HPI Narrative NGOC KAUFFMAN, is a 44 F who presents with the Chief Complaint: bleeding with bowel movement [facility] ED 6.7.25 with abdominal pain and bloody diarrhea. Hx of diverticulitis. CBCwith leukocytosis but pt on steroids. CT showing enteritis CT abd/pelvis 6.12.01 1. Long segment wall thickening, hyperenhancement and fat stranding of the proximal descending colon, which is indeterminate in etiology, and may represent enteritis or inflammatory bowel disease. Colonoscopyis recommended for further evaluation. 2. Minimal colonic diverticulosis. No intra-abdominal abscess, ascites or free air. Stool; negative for c dif and enteric pathogens OV 6..25 Pt continues with bleeding and loose stools. Blood is bright red and fills the bowel. This is the first time she has ever had blood in her stool likethis. She has been taking zofran as needed. She endorses hx of frequent episodesof diverticulitis treated with with cipro and flagyl. She does not take daily NSAIDs. Last colonoscopy was in 2021 with diverticula. [facility] Medical History Fatty liver Anxiety Depression Thyroid [...] albuterol sulfate 90 mcg/actuation 2 inh inhalation [place] N PRN COPD 05/19/22 05/25/22 History aerosol [...] Coral Martinez MD; Misael Moore DO~ Signed [facility] Work Phone: History and physical note Author Misael Moore [facility] Note Date/Time January 16, 2025 6:40am [facility] Medical Records Department [address] [facility] [place] [address] History & Physical Exam 01/16/25 0638 MR#: [id number] Acct: [id number] Name: NGOC KAUFFMAN Rep #:[id number] : 1980 44 From: Misael Moore DO PCP: Dr. Coral Martinez MD Status:REG SD C Location: [place] [address] HPI - General General Date of Admission: 01/16/25 Date of Service: 01/16/25 Chief Complaint: Lower GI bleed HPI Narrative NGOC KAUFFMAN, is a 44 F who presents with the Chief Complaint: bleeding with bowel movement [facility] ED 6 with abdominal pain and bloody diarrhea. Hx [...] Last colonoscopy was in 2021 with diverticula. [facility] Medical History Sleep apnea CPAP (continuous positive [...] albuterol sulfate 90 mcg/actuation 2 inh inhalation [place] N PRN COPD 05/19/22 05/25/22 History aerosol [...] rectum 01/16/25 0640 <Electronically signed by Misael Moore DO> Cosigner Signature (if applicable): CC: Dr. Coral Martinez MD; Misael Moore, ~ Signed [facility] Work Phone: Hospital Discharge instructions No data available for this section [facility] Hospital Discharge instructions Additional Instructions [facility] Work Phone: Hospital Discharge instructions [...] care physician for further outpatient evaluation and management.[facility] Work Phone: Progress note No data available for this section [facility] Reason for referral (narrative)No reason for referral information [facility] Work Phone: Summary Purpose Family History No Family History Records FoundNo Family History Records Found No data available for this section No Family History Records FoundNo Family History Records Found Advance Directives No Advanced Directives Records Found Advance Directive Response Recorded Date/ Time Living Will No May 19 9:08am Power of Editing Intern No May 19, 2022 9:08am Advance Directive Response Recorded Date/ Time Do you have a Healthcare Power of Editing Intern? No October 14, 2024 5:51pm Advance Directive Response Recorded Date/ Time Do you have a Healthcare Power of Editing Intern? No December 11, 2024 8:24am Do you have a Healthcare Power of Editing Intern? No October 14, 2024 5:51pm Advance Directive Response Recorded Date/ Time Do you have a Healthcare Power of Editing Intern? No December 11, 2024 8:24am Do you have a Healthcare Power of Editing Intern? No January 11, 2025 1:51pm Do you have a Healthcare Power of Editing Intern? 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, 2024 7: 17am gi bleed October 14, 2024 5:42p m ER FU BLEEDING October 17, 2024 6:55 am Reason for Visit Admit Date Bright red blood per rectum October 17, 025 6:55am Chief Complaint Admit Date E-ORDER July 22, 2024 8:0 7am PAIN- COPY PCP September 13, 2024 7:05am LONG-TERM DRUG THERAPY September 26, 2024 7: 17am [...] PAIN- COPY PCP September 13, 2024 7:05am LONG-TERM DRUG THERAPY September 26, 2024 7: 17am gi bleed October 14, 2024 5:42p m ER FU BLEEDING October 17, 2024 6:55 am INT LABS October 17, 2024 7:47 am EORDER- STOOL October 20, 2024 7:18 am S/O- PAIN- COPY PCP November 13, 2024 7:17a m Chief Complaint Admit Date PAIN- COPY PCP September 13, 2024 7:05am LONG-TERM DRUG THERAPY September 26, 2024 7: 17am [...] 2024 5:2 1am Chief Complaint Admit Date 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, 2024 7: 17am [...] January 5:24am Diarrhea January 16, 2025 5:24am Chief Complaint Admit Date gi bleed October 14, 2024 5:42p m ER FU BLEEDING October 17, 2024 6:55 am INT LABS October 17, 2024 7:47 am EORDER- STOOL October 20, 2024 7:18 am S/O- PAIN- COPY PCP November 13, 2024 7:17a m Pain January 18, 2025 7:02am EORDERS January 23, 2025 12:55pm Additional Source Comments INFORMATION SOURCE (unrecogn ized section and content) DATE CREATED AUTHOR 01/31/2021 [facility] DATE CREATED AUTHOR AUTHOR'S ORGANIZ ATION 06/25/2022 [facility] ([place]) DATE CREATED AUTHOR AUTHOR'S ORGANIZ ATION 06/13/2024 [facility] DATE CREATED AUTHOR AUTHOR'S ORGANIZ ATION 03/07/2025 [facility] Care Team (unrecognized sect ion and content) Care Team Personnel Name: BRET LATIF DO Position: Physician Med Service: Active Provider Member Role: Primary Care Physician Address: Address: [address] [place] [address], [place] [address]- [place] Care Team Related Persons Name: LIZ MAHONEY Address: Home [address] [place] [address] [place] Care Teams (unrecognized sec tion and content) Team Status: Active Member Role Status Dates Jennifer Moran SOLDERER, SOLDERER-C Primary Care Provider Active Team Status: Inactive Member Role Status Dates Dr. Chemo Rodriguez MD Attending Provider, Referring Pr ovider Active Jennifer Moran SOLDERER, SOLDERER-C Primary Care Provider Active Team Status: Inactive Member Role Status Dates Jennifer Moran SOLDERER, SOLDERER-C Primary Care Provider Active Dr. Clarice Liriano MD Attending Provider, Referring Provider Active Team Status: Active Member Role Status Melissa Martinez MD Primary Care Provider Active Team Status: Inactive Member Role Status Dates Jennifer Moran SOLDERER, SOLDERER-C Primary Care Provider Active Start: June 21, [...] Provider Active St art: January 16, 2025 Team Status: Active Member Role/Relationship Status Melissa Martinez MD Primary care physician Active Team Status: Inactive Member Role/Relationship Status Melissa Martinez MD Primary care physician Active S tart: October 14, 2024 End: October 14, 2024 Dr. Sam Combs DO Attending physician Active Start: October 14, 2024 End: October 14, 2024 Dr. Sam Combs DO Emergency Department Physician Active Start: October 14, 2024 End: October 14, 2024 Team Status: Inactive Member Role/Relationship Status Melissa Martinez MD Primary care physician Active S tart: October 17, 2024 End: October 17, 2024 Coral Martinez MD Referring Provider Active Start : October 17, 2024 End: October 17, 2024 LYNN Zarate Attending physician Active Start: October 17, 2024 End: October 17, 2024 Team Status: Inactive Member Role/Relationship Status Melissa Martinez MD Primary care physician Active S tart: October 17, 2024 End: October 17, 2024 LYNN Zarate Attending physician Active Start: October 17, 2024 End: October 17, 2024 LYNN Zarate Referring Provider Active Start: October 17, 2024 End: October 17, 2024 Team Status: Inactive Member Role/Relationship Status Melissa Martinez MD Primary care physician Active S tart: October 20, 2024 End: October 20, 2024 LYNN Zarate Attending physician Active Start: October 20, 2024 End: October 20, 2024 LYNN Zarate Referring Provider Active Start: October 20, 2024 End: October 20, 2024 Team Status: Inactive Member Role/Relationship Status Melissa Martinez MD Primary care physician Active S tart: November 13, 2024 End: November 13, 2024 Dr. Clarice Liriano MD Attending physician Active Start: November 13, 2024 End: November 13, 2024 Dr. Clarice Liriano MD Referring Provider Active Start: November 13, 2024 End: November 13, 2024 Team Status: Inactive Member Role/Relationship Status Melissa Martinez MD Primary care physician Active S tart: December 12, 2024 End: December 12, 2024 Coral Martinez MD Referring Provider Active Start : December 12, 2024 End: December 12, 2024 Dr. Misael Moore DO Attending physician Active Start: December 12, 2024 End: December 12, 2024 Team Status: Active Member Role/Relationship Status Melissa Martinez MD Primary care physician Active S tart: December 12, 2024 Coral Martinez MD Referring Provider Active Start : December 12, 2024 Dr. Misael Moore DO Attending physician Active Start: December 12, 2024 Dr. Misael Moore DO Nurse Practitioner Active Start: December 12, 2024 Team Status: Inactive Member Role/Relationship Status Melissa Martinez MD Primary care physician Active S tart: January 16, 2025 End: January 16, 2025 Coral Martinez MD Referring Provider Active Start : January 16, 2025 End: January 16, 2025 Dr. Misael Moore DO Attending physician Active Start: January 16, 2025 End: January 16, 2025 Team Status: Active Member Role/Relationship Status Melissa Martinez MD Primary care physician Active S tart: January 16, 2025 Coral Martinez MD Referring Provider Active Start : January 16, 2025 Dr. Misael Moore DO Attending physician Active Start: January 16, 2025 Dr. Misael Moore DO Nurse Practitioner Active Start: January 16, 2025 Team Status: Inactive Member Role/Relationship Status Melissa Martinez MD Primary care physician Active S tart: January 18, 2025 End: January 18, 2025 Dr. Clarice Liriano MD Attending physician Active Start: January 18, 2025 End: January 18, 2025 Dr. Clarice Liriano MD Referring Provider Active Start: January 18, 2025 End: January 18, 2025 Team Status: Inactive Member Role/Relationship Status Melissa Martinez MD Primary care physician Active S tart: January 23, 2025 End: January 23, 2025 Coral Martinez MD Attending physician Active Star t: January 23, 2025 End: January 23, 2025 Coral Martinez MD Referring Provider Active Start : January 23, 2025 End: January 23, 2025 Goals (unrecognized section and content) Goals [...] BE BASED ON THE PRIMARY CLINICAL RECORDS. [facility] [employer] provides no warranty or guarantee of the accuracy or completeness of information in this document.
[2025-04-11 10:15] LABS: Hematocrit 39.2 % (37-47); Hemoglobin 13.6 g/dL (12.0-15.0); Immature Granulocytes Count 0.010 X10^3/uL (0.0-0.0); Mean Corp Hgb Conc 34.7 g/dL (32-36); Mean Corpuscular Volume 97.3 fL (81-99); Mean Platelet Vol. 10.1 fl (6.2-12.0); NRBC Flagged by Analyzer 0 % (0-5); Platelet Count 266 K/mm3 (150-450); RBC Distribution Width CV 13.2 % (11.6-14.6); RBC Distribution Width SD 47.2 fl (35.1-43.9); Red Blood Count 4.03 M/mm3 (4.2-5.4); White Blood Count 7.0 K/mm3 (4.4-11.0)
[2025-04-11 10:45] LABS: AST(SGOT) 20 U/L (<=31); Alanine Aminotransfer ALT/SGPT 22 U/L (<=34); Albumin, Serum 4.2 g/dL (3.5-5.0); Alkaline Phosphatase 50 U/L (35-104); Anion Gap 11 (5-15); BUN 8 mg/dL (4-19); BUN/Creat Ratio 11.8 RATIO (10-20); Calcium,Total 9.1 mg/dL (7.6-11.0); Carbon Dioxide 23.4 mmol/L (21.0-32.0); Chloride 104 mmol/L (98-108); Globulin 2.7 g/dL (2.2-4.2); Glucose 87 mg/dL (70-99); Potassium 4.0 mmol/L (3.3-5.1)
== END | disposition home or self-care (01) ==
LOC: MTLAB 07:19
PROVIDERS: PCP Family Medicine; Referring Provider Family Medicine; Visit Provider Family Medicine
DX: M06.4 Inflammatory polyarthropathy (principal); Z79.899 Other long term (current) drug therapy; M79.7 Fibromyalgia
CPT/HCPCS: 36415; 80053; 84439; 84443; 85025

== ENCOUNTER → 2025-04-24 | Outpatient (CLI) | payer BC, SELFPAY ==
--- NOTE | 2025-04-24 11:49 | US_ITS ---
PROCEDURE: THYROID, 04/24/2025 REASON FOR EXAM: HYPOTHYROID TECHNIQUE: Grayscale and color Doppler imaging of the thyroid was performed. COMPARISON: None FINDINGS: Right lobe measures 4.0 x 1.3 x 1.3cm. Essentially homogeneous background echotexture. Nodules as below: *4 x 3 x 3 mm, solid, hypoechoic, TI-RADS 4. Left lobe measures 3.8 x 1.2 x 0.9 cm. Essentially homogeneous background echotexture. No solid or mostly solid nodules are identified. Isthmus measures 2 mm in thickness. Other: LEFT cervical node inferolateral to the LEFT lobe of the thyroid with normal fatty hilum measures 21 x 5 x 8 mm. US/Thyroid IMPRESSION: 1. Assessment is TI-RADS 4. No nodules currently meet criteria for FNA or follo w-up. 2. Otherwise essentially homogeneous but somewhat atrophic gland. 3. Prominent but technically nonenlarged and morphologically normal LEFT cervic al node, nonspecific and presumably reactive in the absence of known malignancy. Thyroid nodule managment recommendations per TI-RADS: TI-RADS 2: Not Suspicious: No FNA. Clincial follow-up recommended. TI-RADS 3: FNA if >= 25 mm; Follow if >= 15 mm at 1, 3, and 5 years. TI-RADS 4: FNA if >= 15 mm; Follow if >= 10 mm at 1, 2, 3, and 5 years. TI-RADS 5: FNA if >= 10 mm; Follow if >= 5 mm annually until 5 years. Recommendations per ACR Thyroid Imaging, Reporting and Data System (TI-RADS): Rodo morrison Paper of the ACR TI-RADS Committee, 2017 ([email or web address]) Reading Location: [id number]
== END | disposition home or self-care (01) ==
LOC: US 11:47
PROVIDERS: PCP Family Medicine; Referring Provider Family Medicine; Visit Provider Family Medicine
DX: E03.9 Hypothyroidism, unspecified (principal)
CPT/HCPCS: 76536